=== PATIENT | male | born 1935 | race Caucasian/White ===

== ENCOUNTER → 2016-09-19 | Outpatient (CLI) | payer MEDICARE, BC ==
--- NOTE | 2016-09-19 13:00 | US ---
EXAMINATION TYPE: US groin extremity LT DATE OF EXAM: 09/19/2016 12:13 PM COMPARISON: CT abdomen and pelvis April 11, 2016. CLINICAL HISTORY: K40.90. Patient states pain and a "worm like" structure that instantaneously will p op out and brings him to his knees. Left groin/upper thigh area. Poor historian. TECHNOLOGIST IMPRESSION: Area of pain and area of palpable area scanned. Prominent echogenic lesion seen= 2.5 x 2.1 x 0.6 cm, nonvascular. Contralateral image taken. No sign of hernia seen. Technologist rodrigez an oval hyperechoic area, probable prominent but fatty replaced benign lymph node believed to correlate with CT axial image 105. No suspicious bowel or fat-containing inguinal hernia is seen. IMPRESSION: As above.
== END | disposition home or self-care (01) ==
LOC: RADUSWWP 11:37
PROVIDERS: ATTEND Family Medicine
DX: K40.90 Unilateral inguinal hernia, without obstruction or gangrene, not specified as recurrent (principal)

== ENCOUNTER 2016-09-23 06:37 | Inpatient (IN) | payer MEDICARE, BC ==
[2016-09-23] MEDS ORDERED: SODIUM CHLORIDE 0.9% 1,000 ML IV STA (07:18)
[2016-09-23] MEDS ORDERED: methylPREDNISolone SOD SUCCI 125 MG/2 ML VIAL IV STA (07:21)
--- NOTE | 2016-09-23 07:21 | ED ---
SOB HPI - General Chief Complaint: Shortness of Breath Stated Complaint: MARIELA Time Seen by Provider: 09/23/16 07:00 Source: patient, family, EMS, RN notes reviewed Mode of arrival: EMS Limitations: no limitations - History of Present Illness Initial Comments: This is a 81-year-old male who just completed antibiotics yesterday after being treated for double pneumonia was brought in by EMS today because of shortness of breath and dyspnea on exertion. He was profoundly short of breath with exertion. Patient states that he actually collapsed and couldn't breathe did using her or to [place] his family. He did receive an updraft treatment in route does show somewhat better is found to have low saturations on the pulse oximeter. 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 He denied any overt chest pain fevers chills or sweats at this time. MD Complaint: shortness of breath, cough - Related Data Home Medications Medication Instructions Recorded Confirmed Allopurinol [Zyloprim] 300 mg PO DAILY 09/23/16 09/23/16 Atorvastatin [Lipitor] 80 mg PO DAILY 09/23/16 09/23/16 Clopidogrel Bisulfate [Plavix] 75 mg PO DAILY 09/23/16 09/23/16 Meclizine [Antivert] 12.5 mg PO TID PRN 09/23/16 09/23/16 Omeprazole [PriLOSEC] 20 mg PO AC-BRKFST 09/23/16 09/23/16 Tamsulosin [Flomax] 0.4 mg PO DAILY 09/23/16 09/23/16 amLODIPine BESYLATE/BENAZEPRIL 1 cap PO DAILY 09/23/16 09/23/16 [amLODIPine BESYLATE/BENAZEPRIL 10-20 mg] methylPREDNISolone [Medrol Dose 4 mg PO DIRECTED 09/23/16 09/23/16 Pack] Allergies Allergy/AdvReac Type Severity Reaction Status Date / Time Penicillins Allergy Rash/Hives Verified 09/23/16 09:14 Review of Systems ROS Statement: Those systems with pertinent positive or pertinent negative responses have been documented in the HPI. ROS Other: All systems not noted in ROS Statement are negative. Past Medical History Past Medical History: COPD, Hyperlipidemia, Hypertension History of Any Multi-Drug Resistant Organisms: None Reported Past Surgical History: Heart Catheterization With Stent Past Psychological History: No Psychological Hx Reported Smoking Status: Never smoker Past Alcohol Use History: Occasional Past Drug Use History: None Reported General Exam - General Exam Comments Initial Comments: Is a well-developed well-nourished awake alert oriented 3 male he is hard of hearing Limitations: no limitations General appearance: alert, anxious Head exam: Present: atraumatic, normocephalic, normal inspection Eye exam: Present: normal appearance, PERRL, EOMI. Absent: scleral icterus, conjunctival injection, periorbital swelling ENT exam: Present: normal exam, mucous membranes moist Neck exam: Present: normal inspection. Absent: tenderness, meningismus, lymphadenopathy Respiratory exam: Present: rhonchi (Left basilar rhonchi), decreased breath sounds. Absent: respiratory distress, wheezes, rales, stridor Cardiovascular Exam: Present: regular rate, normal rhythm, normal heart sounds. Absent: systolic murmur, diastolic murmur, rubs, gallop, clicks GI/Abdominal exam: Present: soft, normal bowel sounds. Absent: distended, tenderness, guarding, rebound, rigid Extremities exam: Present: normal inspection, full ROM, normal capillary refill. Absent: tenderness, pedal edema, joint swelling, calf tenderness Back exam: Present: normal inspection Neurological exam: Present: alert, oriented X3, CN II-XII intact Psychiatric exam: Present: normal affect, normal mood Skin exam: Present: warm, dry, intact, normal color. Absent: rash Course Vital Signs 09/23/16 09/23/16 09/23/16 06:41 09:00 10:25 Temperature 96.9 F L 96.3 F L Pulse Rate 60 87 93 Respiratory 24 18 18 Rate Blood Pressure 125/91 128/72 139/85 O2 Sat by Pulse 90 L 94 L 94 L Oximetry - Reevaluation(s) Reevaluation #1: 09/23/16 11:05 Patient is chest pain-free he has not had any chest pain is feeling much improved I did a long discussion with family initial troponin was elevated was a hemolyzed specimen repeat has been ordered as well as repeat EKG Reevaluation #2: 09/23/16 11:06 Repeat EKG shows no change from the original one. Repeat EKG showed a sinus rhythm of 87 FL interval 172 QRS duration 86 QT/QTC of 392/[address]-T wave configuration Reevaluation #3: 09/23/16 11:07 I did discuss case with Dr. Jimenes from cardiology and with Dr. Allan. Dr. Allan's covering for Dr. Lopez. Medical Decision Making - Medical Decision Making I did discuss findings with the patient family members patient does have evidence of a non-ST elevation myocardial infarction the enzymes are mildly elevated at did discuss case with Dr. Jimenes patient be admitted he'll be placed on heparin and nitroglycerin. - Lab Data Result diagrams: 09/23/16 06:50 09/23/16 06:50 Lab Results 09/23/16 09/23/16 09/23/16 Range/Units 06:50 06:50 06:50 WBC 7.7 (3.8-10.6) k/uL RBC 4.50 (4.30-5.90) m/uL Hgb 14.3 (13.0-17.5) gm/dL Hct 42.4 (39.0-53.0) % MCV 94.1 (80.0-100.0) fL MCH 31.8 (25.0-35.0) pg MCHC 33.8 (31.0-37.0) g/dL RDW 14.7 (11.5-15.5) % Plt Count 164 (150-450) k/uL Neutrophils % 68 % Lymphocytes % 25 % Monocytes % 4 % Eosinophils % 1 % Basophils % 0 % Neutrophils # 5.3 (1.3-7.7) k/uL Lymphocytes # 1.9 (1.0-4.8) k/uL Monocytes # 0.3 (0-1.0) k/uL Eosinophils # 0.1 (0-0.7) k/uL Basophils # 0.0 (0-0.2) k/uL PT (9.0-12.0) sec INR (<1.1) APTT (22.0-30.0) sec Sodium 145 (137-145) mmol/L Potassium 3.8 (3.5-5.1) mmol/L Chloride 108 H (98-107) mmol/L Carbon Dioxide 22 (22-30) mmol/L Anion Gap 15 mmol/L BUN 12 (9-20) mg/dL Creatinine 0.63 L (0.66-1.25) mg/dL Est GFR (MDRD) Af Amer >60 (>60 ml/min/1.73 sqM) Est GFR (MDRD) Non-Af >60 (>60 ml/min/1.73 sqM) Glucose 177 H (74-99) mg/dL Calcium 8.7 (8.4-10.2) mg/dL Magnesium 1.5 L (1.6-2.3) mg/dL Total Bilirubin 0.9 (0.2-1.3) mg/dL AST 63 H (17-59) U/L ALT 102 H (21-72) U/L Alkaline Phosphatase 149 H (38-126) U/L Total Creatine Kinase 88 (55-170) U/L CK-MB (CK-2) 1.9 (0.0-2.4) ng/mL CK-MB (CK-2) Rel Index 2.2 Troponin I 0.173 H* (0.000-0.034) ng/mL NT-Pro-B Natriuret Pep pg/mL Total Protein 7.4 (6.3-8.2) g/dL Albumin 4.2 (3.5-5.0) g/dL 09/23/16 09/23/16 09/23/16 Range/Units 06:50 06:50 09:07 WBC (3.8-10.6) k/uL RBC (4.30-5.90) m/uL Hgb (13.0-17.5) gm/dL Hct (39.0-53.0) % MCV (80.0-100.0) fL MCH (25.0-35.0) pg MCHC (31.0-37.0) g/dL RDW (11.5-15.5) % Plt Count (150-450) k/uL Neutrophils % % Lymphocytes % % Monocytes % % Eosinophils % % Basophils % % Neutrophils # (1.3-7.7) k/uL Lymphocytes # (1.0-4.8) k/uL Monocytes # (0-1.0) k/uL Eosinophils # (0-0.7) k/uL Basophils # (0-0.2) k/uL PT 11.5 (9.0-12.0) sec INR 1.1 (<1.1) APTT 19.5 L (22.0-30.0) sec Sodium (137-145) mmol/L Potassium (3.5-5.1) mmol/L Chloride (98-107) mmol/L Carbon Dioxide (22-30) mmol/L Anion Gap mmol/L BUN (9-20) mg/dL Creatinine (0.66-1.25) mg/dL Est GFR (MDRD) Af Amer (>60 ml/min/1.73 sqM) Est GFR (MDRD) Non-Af (>60 ml/min/1.73 sqM) Glucose (74-99) mg/dL Calcium (8.4-10.2) mg/dL Magnesium (1.6-2.3) mg/dL Total Bilirubin (0.2-1.3) mg/dL AST (17-59) U/L ALT (21-72) U/L Alkaline Phosphatase (38-126) U/L Total Creatine Kinase (55-170) U/L CK-MB (CK-2) (0.0-2.4) ng/mL CK-MB (CK-2) Rel Index Troponin I 0.713 H* (0.000-0.034) ng/mL NT-Pro-B Natriuret Pep 214 pg/mL Total Protein (6.3-8.2) g/dL Albumin (3.5-5.0) g/dL - EKG Data -: EKG Interpreted by Mn EKG shows normal: sinus rhythm (Initial EKG showed a sinus rhythm of 91 a FL interval 170 QRS duration 88 daily since QTC of 364/[address]-T wave configuration. No change when compared to an EKG dated 12/04/11) - Radiology Data Radiology results: report reviewed (I did review the x-ray report no definite acute findings.), image reviewed Critical Care Time Critical Care Time: Yes Critical Care Time: 37 minutes of critical care time which includes the initial encounter with history physical lab and x-rays evaluation of same review of old charting. Multiple re-evaluations the patient. Discussion with the admitting physician and cardiology service. Admission orders and documentation of the above. Disposition Clinical Impression: Non-ST elevation myocardial infarction (NSTEMI), Exertional dyspnea Disposition: ADMITTED IP TO THIS [facility] Condition: Stable
[2016-09-23 07:34] LABS: Basophils % (A) 0 %; CHCM 35.3; Eosinophils # (A) 0.1 k/uL (0-0.7); Eosinophils % (A) 1 %; HCT 42.4 % (39.0-53.0); HGB 14.3 gm/dL (13.0-17.5); Luc # (Auto) 0.12; Luc % (Auto) 2; Lymphocytes # (A) 1.9 k/uL (1.0-4.8); Lymphocytes % (A) 25 %; MCH 31.8 pg (25.0-35.0); MCHC 33.8 g/dL (31.0-37.0); MCV 94.1 fL (80.0-100.0); Mean Platelet Volume 6.7; Monocytes # (A) 0.3 k/uL (0-1.0); Monocytes % (A) 4 %; Neutrophils # (A) 5.3 k/uL (1.3-7.7); Neutrophils % (A) 68 %; RDW 14.7 % (11.5-15.5); WBC 7.7 k/uL (3.8-10.6); WBC (Perox) 7.77
[2016-09-23 07:48] LABS: ALT 102 U/L (21-72); AST 63 U/L (17-59); Alkaline Phosphatase 149 U/L (38-126); Anion Gap 15 mmol/L; Blood Urea Nitrogen 12 mg/dL (9-20); Calcium 8.7 mg/dL (8.4-10.2); Carbon Dioxide 22 mmol/L (22-30); Chloride 108 mmol/L (98-107); Glucose 177 mg/dL (74-99); Magnesium 1.5 mg/dL (1.6-2.3); Non-African American GFR(MDRD) >60 (>60 ml/min/1.73 sqM); Potassium 3.8 mmol/L (3.5-5.1); Sodium 145 mmol/L (137-145); Total Bilirubin 0.9 mg/dL (0.2-1.3); Total Protein 7.4 g/dL (6.3-8.2)
[2016-09-23 07:49] LABS: INR 1.1 (<1.1); Prothrombin Time 11.5 sec (9.0-12.0)
[2016-09-23 07:53] LABS: Partial Thromboplastin Time 19.5 sec (22.0-30.0)
--- NOTE | 2016-09-23 07:58 | XR ---
EXAMINATION TYPE: XR chest 2V DATE OF EXAM: 09/23/2016 7:48 AM COMPARISON: Prior chest x-ray 18 April 2015 HISTORY: Difficulty breathing TECHNIQUE: Frontal and lateral views of the chest are obtained. FINDINGS: There is no focal air space opacity, pleural effusion, or pneumothorax seen. The cardiac silhouette size is within normal limits. There are overlying cardiac leads and the patient is rotated . The aorta is dense. Prominent lung volume may be indicative of COPD. The osseous structures are in tact. IMPRESSION: No acute cardiopulmonary process.
[2016-09-23] MEDS ORDERED: MAGNESIUM SULFATE-D5W PMX 1 GM in DEXTROSE/WATER 1 100ML.BAG IVPB ONE (08:11)
[2016-09-23 08:12] LABS: Creatine Kinase MB 1.9 ng/mL (0.0-2.4)
[2016-09-23 08:15] LABS: Troponin I 0.173 ng/mL (0.000-0.034)
[2016-09-23] MEDS ORDERED: HEPARIN SODIUM,PORCINE 5,000 UNIT/ML 1 ML VIAL IV ONE (10:17)
[2016-09-23] MEDS ORDERED: NITROGLYCERIN OINT 1 INCH/GM PACKET TOPICAL STA (10:17)
[2016-09-23] MEDS ORDERED: HEPARIN SODIUM,PORCINE/D5W PMX 25,000 UNIT in DEXTROSE/WATER 1 500ML.BAG IV SCH (10:30)
[2016-09-23] MEDS ORDERED: NITROGLYCERIN SL TABS 0.4 MG TAB SUBLINGUAL PRN (11:10)
[2016-09-23] MEDS: SODIUM CHLORIDE 0.9% 1,000 ML IV SCH (13:00)
[2016-09-23] MEDS: METOPROLOL TARTRATE 25 MG TAB PO SCH ×2 (13:58→21:40)
--- NOTE | 2016-09-23 14:18 | CONS ---
DATE OF CONSULTATION: Mr. Shah is an 81-year-old male who presented to the emergency room with an episode of dyspnea. He has a known history of coronary artery disease, has been followed by Dr. Alejandra Poole, underwent percutaneous revascularization of his LAD in 2011 using a bare-metal stent. He according to him, has been doing well. Today in the morning he had a sudden onset of dyspnea without any associated chest discomfort. He came into the emergency room and his troponin was minimally elevated. Patient denies any chest tightness or chest pressure. He is usually active physically. Denies any dizziness or palpitation. No PND. No orthopnea. His coronary risk factors are remarkable for hypertension, hyperlipidemia. He is nonsmoker, nondiabetic. His medications at home include Flomax, Prilosec, Antivert, Plavix 75 mg daily, Lipitor 80 mg daily, amlodipine, benazepril 10-1 gm daily and allopurinol. Patient had a recent pneumonia. According to him, and has been treated a week ago. REVIEW OF SYSTEMS: RESPIRATORY SYSTEM: He had a cough, dyspnea on exertion. GI SYSTEM: No recent GI bleeding, no peptic disease. SYSTEM: No dysuria or hematuria. NERVOUS SYSTEM: No stroke or seizure. PHYSICAL EXAMINATION: An 81-year-old male; alert, anxious and teary at times, blood pressure running in the 120s to 160s systolic with a heart rate in the 90s. HEAD: Normocephalic. EYES: Sclerae nonicteric. NECK: Good upstroke. No bruit. No jugular venous distention. LUNGS: Clear to auscultation. HEART: Regular rate and rhythm. S1, S2, no S3, with systolic murmur heard at the base, ejection type, no diastolic murmur. No rub. ABDOMEN: Soft, nontender, positive bowel sounds. No organomegaly. EXTREMITIES: Mild chronic stasis with trace to 1+ edema. LAB DATA: His chest x-ray revealed no acute infiltrate. EKG revealed sinus mechanism, normal axis and intervals with nonspecific ST-T wave changes. Lab data revealed a BNP of 214, troponin of 0.173 and 0.713, AST 63, ALT of 102. BUN and creatinine 12 and 0.6. Potassium 3.8. Hemoglobin of 14.3. IMPRESSION: 1. Acute episode of dyspnea with minimal elevation of troponin, but no symptoms of chest discomfort. The possibility include non-ST segment elevation myocardial infarction, although it is possible a pulmonary embolism cannot be totally excluded. 2. History of coronary artery disease. 3. History of hypertension. 4. Hyperlipidemia. 5. Recent pneumonia. RECOMMENDATION: I will obtain echocardiogram with Doppler, will continue on IV heparin. I will add to his regimen a beta jono. I will obtain a d-dimer, if it is elevated, will obtain a CT angiogram to rule out pulmonary embolism. If he has further change in his troponin, he may require repeat coronary angiography that will be performed by Dr. 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 Thank you for this consult. Will follow with you.
[2016-09-23] MEDS ORDERED: RX INFO: IV CONTRAST WAS GIVEN 1 EACH MISC MISCELLANE PRN (14:58)
[2016-09-23 15:01] LABS: Creatine Kinase MB 4.5 ng/mL (0.0-2.4)
[2016-09-23 15:02] LABS: Troponin I 0.789 ng/mL (0.000-0.034)
--- NOTE | 2016-09-23 15:48 | CT ---
EXAMINATION TYPE: CT chest angio for PE DATE OF EXAM: 09/23/2016 3:35 PM COMPARISON: 05/23/2015 HISTORY: 81-year-old male with shortness of breath, elevated D dimer TECHNIQUE: Contiguous axial scanning of the chest performed with IV Contrast, patient injected with 1 00 mL of Omnipaque 350. Coronal/sagittal MIP reconstructions performed. CT DLP: 596.2 mGycm Automated exposure control for dose reduction was used. FINDINGS: Heart is normal size without pericardial effusion. However, there is slight flattening of the interve ntricular septum and some reflux of contrast into the hepatic veins. Ectasia of ascending aorta at 3.7 cm with a bovine configuration to the aortic arch. 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 Moderate bilateral gynecomastia. Satisfactory opacification of the pulmonary arterial system with borderline to mild enlargement of th e main pulmonary arteries and 2.6 and 2.5 cm, each, suggesting underlying pulmonary hypertension. There are bilateral pulmonary emboli involving the distal main pulmonary arteries on both sides. Ther e is extensive clot burden within the interlobar pulmonary artery on the right with embolic material extending into all lobar and segmental branches on the right. There is embolic material extending int o the proximal left upper lobe pulmonary artery, in the descending left pulmonary artery, and promine nt clot burden within segmental left lower lobe pulmonary artery branches.. Mild diffuse bronchial wall thickening similar prior. Some patchy pulmonary opacities in the left low er lobe could reflect early pulmonary infarct, atelectasis, or small infiltrate. No pleural effusion. Visualized upper abdomen shows a 1.6 cm cyst in the mid left kidney and a hilar splenule. Bones: No osseous destructive process. IMPRESSION: 1. EXAM POSITIVE FOR BILATERAL PULMONARY EMBOLI WITH MODERATE TO SEVERE BURDEN AND FINDINGS SUSPICIOU S FOR EARLY RIGHT HEART STRAIN. 2. CHRONIC INTERSTITIAL CHANGES IN THE LUNGS AND POSSIBLE CHRONIC BRONCHITIS/ASTHMA. SOME PATCHY BASI LAR LEFT LOWER LOBE OPACITY COULD REPRESENT EARLY PULMONARY INFARCT OR OTHER INFILTRATE. Findings called to nurse Hyatt on 6SEL at approximately 3:45 PM.
[2016-09-23] MEDS ORDERED: HEPARIN SODIUM,PORCINE 5,000 UNIT/ML 1 ML VIAL IV PRN (16:00)
[2016-09-23] MEDS: HEPARIN SODIUM,PORCINE/D5W PMX 25,000 UNIT in DEXTROSE/WATER 1 500ML.BAG IV SCH (17:02)
--- NOTE | 2016-09-23 18:48 | US ---
EXAMINATION TYPE: US venous doppler duplex LE BI DATE OF EXAM: 09/23/2016 6:21 PM COMPARISON: NONE CLINICAL HISTORY: dvt. Bilateral pulmonary embolism SIDE PERFORMED: Bilateral VESSELS IMAGED: External Iliac Vein (EIV) Common Femoral Vein Deep Femoral Vein Greater Saphenous Vein * Femoral Vein Popliteal Vein Small Saphenous Vein * Proximal Calf Veins (* superficial vessels) TECHNOLOGIST IMPRESSION: Right Leg: Negative for DVT Left Leg: Positive for non-occluding DVT from the upper femoral vein to the proximal calf vein Preliminary results given to PRANEETH Hyatt at time of exam IMPRESSION: No evidence of deep venous thrombosis in the right leg. 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
[2016-09-23 20:48] LABS: Glucose,Whole Blood 148 mg/dL (75-99)
[2016-09-23 21:35] LABS: Creatine Kinase MB 6.3 ng/mL (0.0-2.4); Troponin I 0.978 ng/mL (0.000-0.034)
--- NOTE | 2016-09-23 21:43 | HP ---
DATE OF ADMISSION: 09/23/2016 I am covering for Dr. Lopez CHIEF COMPLAINT: Chest pain. HISTORY OF PRESENT ILLNESS: This 81-year-old gentleman with a past medical history of multiple medical problems including coronary artery disease, COPD, myocardial infarction, history of pneumonia, seizure disorder, history of recent bilateral pneumonia, history of coronary artery disease and stent, being followed by Dr. Lopez in the outpatient setting who has recently completed antibiotics for pneumonia. The patient had sudden onset of shortness of breath and dyspnea on exertion. The patient became extremely short of breath, unable to take a deep breath. The patient also had some chest discomfort started in the epigastrium and radiated upwards according to him. The patient came to [facility] and admitted for further evaluation and treatment. The troponins were found to be elevated. Cardiology consultations has been sought. Troponins found to be 0.173, . The EKG shows nonspecific ST-T changes. The d-dimer was found to be elevated to 4.57 and the patient also had a chest CTA which showed extensive bilateral pulmonary embolism with moderate suspicious area of early right heart strain also chronic infectious changes was also noted. The patient was started on IV heparin. The patient is being closely monitored. There is no history of fever, rigors or chills. No history of headache, loss of consciousness or seizures. PAST MEDICAL HISTORY: History of coronary artery disease, COPD, myocardial infarction, pneumonia, renal disorder, seizure disorder. CAD/stent. MEDICATIONS: 1. Flomax 0.4 daily. 2. Medrol Dosepak. 3. Prilosec 20 mg a.c. breakfast. 4. Antivert 12.5 mg t.i.d. 5. Plavix 75 mg milligrams p.o. daily. 6. Lipitor 80 mg p.o. daily. 7. Amlodipine. 8. Benazepril. 10. Zyloprim 300 mg daily. ALLERGIES: PENICILLIN. FAMILY HISTORY: No history of heart disease or strokes in the family. Mother had mental health issues. SOCIAL HISTORY: No history of smoking. No history of alcohol intake. REVIEW OF SYSTEMS: ENT: No diminished hearing. No diminished vision. CARDIOVASCULAR: As mentioned earlier. RESPIRATORY SYSTEM: As mentioned earlier. GI: No nausea or vomiting. : No dysuria. CENTRAL NERVOUS SYSTEM: No numbness or weakness. Allergy/Immunology: No asthma or hayfever. MUSCULOSKELETAL: As mentioned earlier. HEMATOLOGY/ONCOLOGY: No history of anemia. ENDOCRINE: No history of diabetes mellitus , hypothyroidism. CONSTITUTIONAL: As mentioned earlier. DERMATOLOGY: Negative. RHEUMATOLOGY: Negative. PSYCHIATRY: As mentioned earlier. PHYSICAL EXAMINATION: The patient is alert and oriented x3. Pulse is 90, blood pressure 120/93, respiratory rate 22. Temperature 96.8. Pulse ox 94% on 3 liters. Patient is short of breath at rest. HEENT: Conjunctivae normal. Oral mucosa moist. NECK: No jugular venous distention. No carotid bruit. No lymph node enlargement. CARDIOVASCULAR: S1, S2 muffled. No S3, no S4. RESPIRATORY: Breath sounds diminished at the bases. A few scattered rhonchi and crackles. Expiratory wheezing also present. ABDOMEN: Soft, obese, nontender. No mass palpable. Legs: Minimal bilateral leg edema. Nervous system: Higher functions as mentioned earlier. Moves all 4 limbs. No focal deficits. LYMPHATICS: No lymph nodes palpable in the neck, axillae or groin. SKIN: No ulcer, rash or bleeding. LABS: CBC within normal limits, magnesium 1.5, AST 63, ALT is 102. ASSESSMENT: 1. Shortness of breath with acute bilateral pulmonary embolism. 2. Hypomagnesemia. 3. Increased AST, ALT. 4. Troponin 0.789 possibly secondary to pulmonary embolism. 5. Obesity with body mass index of 35.9. 6. History of recent pneumonia. 7. History of coronary artery disease. 8. History of chronic obstructive pulmonary disease. 9. History of myocardial infarction. 10. History of kidney disease currently creatinine normal. 11. History of seizure disorder. 12. History of inguinal hernia. 13. History of coronary artery disease and stent. 14. History of degenerative joint disease. 15. FULL CODE. RECOMMENDATIONS AND DISCUSSION: In this 81-year-old gentleman who presented with multiple complex medical issues, we will monitor the patient closely. Continue the current medications, continue symptomatic treatment. We will initiate IV heparin. Otherwise, I would also recommend ultrasound of the legs. The patient might be a candidate for oral anticoagulant agents once the patient stabilized on heparin and a 2-D echo with Doppler was also done. Utility Mechanic Supervisor was consulted. Prognosis guarded because of multiple complex medical issues. Further recommendations to follow. We will also obtain a pulmonary consultation also. Prognosis guarded. Discussed with the patient understands and agrees. Dr. Lopez will follow. [facility]
[2016-09-24] MEDS: HEPARIN SODIUM,PORCINE/D5W PMX 25,000 UNIT in DEXTROSE/WATER 1 500ML.BAG IV SCH ×2 (06:44→16:31)
[2016-09-24] MEDS: PANTOPRAZOLE 40 MG TABLET PO SCH (06:44)
[2016-09-24 08:06] LABS: Basophils % (A) 0 %; CH 33.4; CHCM 35.2; Eosinophils % (A) 0 %; HCT 38.1 % (39.0-53.0); HDW 3.12; Luc # (Auto) 0.09; Luc % (Auto) 1; Lymphocytes # (A) 1.9 k/uL (1.0-4.8); Lymphocytes % (A) 18 %; MCH 32.7 pg (25.0-35.0); MCHC 34.2 g/dL (31.0-37.0); MCV 95.6 fL (80.0-100.0); Mean Platelet Volume 8.1; Monocytes # (A) 0.4 k/uL (0-1.0); Monocytes % (A) 4 %; Neutrophils # (A) 7.6 k/uL (1.3-7.7); Neutrophils % (A) 76 %; RBC 3.99 m/uL (4.30-5.90); RDW 14.8 % (11.5-15.5); WBC (Perox) 9.49
[2016-09-24 08:12] LABS: ALT 72 U/L (21-72); AST 57 U/L (17-59); Alkaline Phosphatase 119 U/L (38-126); Anion Gap 15 mmol/L; Blood Urea Nitrogen 15 mg/dL (9-20); Calcium 8.8 mg/dL (8.4-10.2); Carbon Dioxide 19 mmol/L (22-30); Chloride 111 mmol/L (98-107); Cholesterol 72 mg/dL (<200); Glucose 149 mg/dL (74-99); HDL Cholesterol 55 mg/dL (40-60); Magnesium 1.8 mg/dL (1.6-2.3); Non-African American GFR(MDRD) >60 (>60 ml/min/1.73 sqM); Potassium 3.8 mmol/L (3.5-5.1); Sodium 145 mmol/L (137-145); Total Bilirubin 0.7 mg/dL (0.2-1.3); Total Protein 6.3 g/dL (6.3-8.2); Triglycerides 63 mg/dL (<150)
[2016-09-24] MEDS ORDERED: ASPIRIN 325 MG TAB PO SCH (09:00)
[2016-09-24] MEDS ORDERED: CLOPIDOGREL 75 MG TAB PO SCH (09:00)
[2016-09-24] MEDS: amLODIPine 10 MG TAB PO SCH (09:49)
[2016-09-24] MEDS: ATORVASTATIN 80 MG TAB PO SCH (09:49)
[2016-09-24] MEDS: ASPIRIN 81 MG CHEW PO SCH (09:49)
[2016-09-24] MEDS: ALLOPURINOL 300 MG TAB PO SCH (09:49)
[2016-09-24] MEDS: LISINOPRIL 20 MG TAB PO SCH (09:50)
[2016-09-24] MEDS: TAMSULOSIN 0.4 MG CAP.ER.24H PO SCH (09:50)
[2016-09-24] MEDS: METOPROLOL TARTRATE 25 MG TAB PO SCH ×2 (09:50→21:45)
--- NOTE | 2016-09-24 10:34 | ECHOF ---
Referral Reason:cad MEASUREMENTS -------- HEIGHT: 182.9 cm WEIGHT: 120.2 kg BP: 169/102 RVIDd: 4.2 cm (< 3.3) IVSd: 1.4 cm (0.6 - 1.1) LVIDd: 4.1 cm (3.9 - 5.3) LVPWd: 1.5 cm (0.6 - 1.1) IVSs: 1.6 cm LVIDs: 3.6 cm LVPWs: 1.7 cm LAESV Index (A-L): 24.92 ml/m Ao Diam: 4.0 cm (2.0 - 3.7) AV Cusp: 2.0 cm (1.5 - 2.6) LA Diam: 3.5 cm (2.7 - 3.8) MV EXCURSION: 11.106 mm (> 18.000) MV EF SLOPE: 47 mm/s (70 - 150) EPSS: 1.4 cm MV E Wayne: 0.50 m/s MV DecT: 206 ms MV A Wayne: 0.78 m/s MV E/A Ratio: 0.64 RAP: 5.00 mmHg RVSP: 21.61 mmHg FINDINGS -------- Sinus rhythm. This was a technically adequate study. There is moderate concentric left ventricular hypertrophy. Overall left ventricular systolic function is normal with, an EF between 55 - 60 %. The right ventricle is moderate to severely enlarged. Normal LA size by volume 22+/-6 ml/m2. The right atrial size is normal. There is mild aortic valve sclerosis. There is no evidence of aortic regurgitation. Mild mitral annular calcification present. Mild mitral regurgitation is present. Mild tricuspid regurgitation present. There is no evidence of pulmonary hypertension. The right ventricular systolic pressure, as measured by Doppler, is 21.61mmHg. There is no pulmonic regurgitation present. The aortic root size is normal. There is no pericardial effusion. CONCLUSIONS -------- 1. There is moderate concentric left ventricular hypertrophy. 2. Overall left ventricular systolic function is normal with, an EF between 55 - 60 %. 3. The right ventricle is moderate to severely enlarged. 4. Normal LA size by volume 22+/-6 ml/m2. 5. There is mild aortic valve sclerosis. 6. Mild mitral annular calcification present. 7. Mild tricuspid regurgitation present. 8. There is no evidence of pulmonary hypertension. 9. The right ventricular systolic pressure, as measured by Doppler, is 21.61mmHg. ADULT AND PEDIATRIC NEUROLOGIST: Melanie Michele RDCS
--- NOTE | 2016-09-24 11:27 | P.PN ---
Subjective Principal diagnosis: Bilateral pulmonary embolism, left lower extremity DVT Patient is an 81-year-old white male admitted with medical history significant for coronary artery disease, COPD, myocardial infarction with bare metal stent placement to his LAD in 2011 taken off anticoagulation approximately 6 months ago, admitted to the hospital with complaints of severe shortness of breath and found to have evidence of bilateral pulmonary emboli and nonoccluding DVT of left leg from upper femoral vein to the proximal calf vein. Echocardiogram shows moderate to severely enlarged right ventricle with overall preserved left ventricular systolic function with an EF between 55-60%. Patient continues on IV heparin. Cardiology and pulmonology is following patient. Upon examination , patient complains of dyspnea at rest and exacerbated with exertion. Patient reports chronic numbness to bilateral lower extremities since his knee operation. Denies chills, fevers, nausea, vomiting, chest pain, abdominal pain , urinary frequency, urgency, dysuria, hematuria. Denies constipation or diarrhea. Patient is tolerating his diet. Objective - Vital Signs Vital signs: Vital Signs Temp 96.5 F L 09/24/16 07:35 Pulse 68 09/24/16 09:35 Resp 16 09/24/16 08:44 BP 144/88 09/24/16 09:35 Pulse Ox 96 09/24/16 07:35 Intake & Output 09/23/16 09/24/16 09/24/16 18:59 06:59 18:59 Intake Total 496 500.000 197.933 Output Total 600 Balance 496 -100.000 197.933 Weight 121.5 kg Intake: IV 260 Heparin Sodium,Porcine/ 80 D5w Pmx 25,000 unit In Dextrose/Water 1 500ml. bag @ 8.32 UNITS/KG/HR 20 mls/hr IV .Q24H [facility] Rx#: [id number] Magnesium Sulfate-D5w Pmx 100 1 gm In Dextrose/Water 1 100ml.bag @ 100 mls/hr IVPB ONCE ONE Rx#: [id number] Sodium Chloride 0.9% 1, 80 000 ml @ 20 mls/hr IV . Q24H [facility] Rx#:[id number] Intake, IV Titration 500.000 79.933 Amount Heparin Sodium,Porcine/ 500.000 79.933 D5w Pmx 25,000 unit In Dextrose/Water 1 500ml. bag @ 18 UNITS/KG/HR 43. 27 mls/hr IV .[id number] [facility] Rx#:[id number] Oral 236 118 Output: Urine 600 Other: Voiding Method Toilet Toilet Toilet - Exam GENERAL: Pt awake and alert, well-appearing, well-nourished, and in no acute distress. HEAD: Atraumatic, normocephalic. EYES: Pupils equal, round and round, sclera anicteric, conjunctiva are normal. ENT: Moist mucous membranes. NECK:Supple without lymphadenopathy or JVD. LUNGS: Breath sounds clear to auscultation bilaterally. No wheezes, rales, or rhonchi. HEART: Heart S1, S2, no S3 or S4. Regular rate and rhythm. No murmurs, rubs or gallops. ABDOMEN: Soft, nontender, nondistended, normoactive bowel sounds. No guarding, no rebound. No masses or organomegaly appreciated. EXTREMITIES: 2+ peripheral pulses. No edema. No calf tenderness. NEUROLOGICAL: Pt oriented x 3. No focal deficits. Decreased sensation to bilateral lower extremities. PSYCH: Normal mood, normal affect. SKIN: Warm, dry, intact. - Labs CBC & Chem 7: 09/24/16 06:20 09/24/16 06:20 Labs: Abnormal Lab Results - Last 24 Hours (Table) 09/23/16 09/23/16 09/23/16 Range/Units 14:01 14:01 16:36 RBC (4.30-5.90) m/uL Hct (39.0-53.0) % APTT 34.4 H (22.0-30.0) sec D-Dimer 4.57 H (<0.60) mg/L FEU Chloride (98-107) mmol/L Carbon Dioxide (22-30) mmol/L Creatinine (0.66-1.25) mg/dL Glucose (74-99) mg/dL POC Glucose (mg/dL) (75-99) mg/dL Total Creatine Kinase (55-170) U/L CK-MB (CK-2) 4.5 H* (0.0-2.4) ng/mL Troponin I 0.789 H* (0.000-0.034) ng/mL 09/23/16 09/23/16 09/23/16 Range/Units 20:25 20:29 22:22 RBC (4.30-5.90) m/uL Hct (39.0-53.0) % APTT 177.8 H* (22.0-30.0) sec D-Dimer (<0.60) mg/L FEU Chloride (98-107) mmol/L Carbon Dioxide (22-30) mmol/L Creatinine (0.66-1.25) mg/dL Glucose (74-99) mg/dL POC Glucose (mg/dL) 148 H (75-99) mg/dL Total Creatine Kinase 185 H (55-170) U/L CK-MB (CK-2) 6.3 H* (0.0-2.4) ng/mL Troponin I 0.978 H* (0.000-0.034) ng/mL 09/24/16 09/24/16 09/24/16 Range/Units 06:20 06:20 06:20 RBC 3.99 L (4.30-5.90) m/uL Hct 38.1 L (39.0-53.0) % APTT 101.0 H* (22.0-30.0) sec D-Dimer (<0.60) mg/L FEU Chloride 111 H (98-107) mmol/L Carbon Dioxide 19 L (22-30) mmol/L Creatinine 0.63 L (0.66-1.25) mg/dL Glucose 149 H (74-99) mg/dL POC Glucose (mg/dL) (75-99) mg/dL Total Creatine Kinase (55-170) U/L CK-MB (CK-2) (0.0-2.4) ng/mL Troponin I (0.000-0.034) ng/mL Assessment and Plan Plan: Impression: 1. Shortness of breath secondary to acute bilateral pulmonary emboli. 2. Left leg nonoccluding DVT. 3. Coronary artery disease. 4. Elevated troponins suspect secondary to pulmonary embolism. 5. Chronic obstructive pulmonary disease. 6. History of myocardial infarction with bare-metal stent placement in 2011. 7. History recent pneumonia. 8. Obesity. BMI of 36.3. 9. BPH. 10. History of seizure disorder. 11. History of inguinal hernia. 12. History of degenerative joint disease. Plan: 1. Continue to monitor patient. Continue current medications. Continue symptomatic treatment. Continue GI and DVT prophylaxis. Continue to follow with cardiology and pulmonology service. Repeat CBC, BMP in a.m. The above impression and plan have been discussed and directed by Dr. Lopez. Michael PARKER acting as scribe for Dr. Lopez.
--- NOTE | 2016-09-24 12:44 | P.PN ---
Subjective Principal diagnosis: Pulmonary embolism This is a pleasant 81-year-old gentleman who presented to the hospital mainly with symptoms of dyspnea. He has a known history of coronary artery disease with prior PCI of the LAD in 2011. He follows regularly with Dr. Ashraf in the office patient also has history of hypertension, hyperlipidemia. On admission here patient's troponins were noted to be mildly elevated, d-dimer was obtained yesterday, which came back to be 4.7. Subsequent to that patient underwent a CT of the chest which confirmed pulmonary embolism. Venous duplex study was then performed which revealed positive DVT in the left upper from oral vein. Patient is currently on IV heparin, we're checking to see if he has coverage for one of the newer anticoagulants. If so, we will initiate that today, discontinue the heparin and Plavix. Blood pressure 146/90 with a heart rate in the 60s. Echocardiogram with Doppler study was performed which revealed an ejection fraction of 55-60%. Right ventricle moderate to severely enlarged. Overall the patient states she's feeling better today, breathing is stable. Objective - Vital Signs Vital signs: Vital Signs Temp 96.5 F L 09/24/16 07:35 Pulse 68 09/24/16 09:35 Resp 16 09/24/16 08:44 BP 144/88 09/24/16 09:35 Pulse Ox 96 09/24/16 07:35 Intake & Output 09/23/16 09/24/16 09/24/16 18:59 06:59 18:59 Intake Total 496 500.000 197.933 Output Total 600 Balance 496 -100.000 197.933 Weight 121.5 kg Intake: IV 260 Heparin Sodium,Porcine/ 80 D5w Pmx 25,000 unit In Dextrose/Water 1 500ml. bag @ 8.32 UNITS/KG/HR 20 mls/hr IV .Q24H [facility] Rx#: [id number] Magnesium Sulfate-D5w Pmx 100 1 gm In Dextrose/Water 1 100ml.bag @ 100 mls/hr IVPB ONCE ONE Rx#: [id number] Sodium Chloride 0.9% 1, 80 000 ml @ 20 mls/hr IV . Q24H [facility] Rx#:[id number] Intake, IV Titration 500.000 79.933 Amount Heparin Sodium,Porcine/ 500.000 79.933 D5w Pmx 25,000 unit In Dextrose/Water 1 500ml. bag @ 18 UNITS/KG/HR 43. 27 mls/hr IV .[id number] [facility] Rx#:[id number] Oral 236 118 Output: Urine 600 Other: Voiding Method Toilet Toilet Toilet - Exam PHYSICAL EXAMINATION: HEENT: Head is atraumatic, normocephalic. Pupils equal, round. Neck is supple. There is no elevated jugular venous pressure. HEART EXAMINATION: Heart S1, S2 normal. No murmur or gallop heard. CHEST EXAMINATION: Lungs are clear to auscultation and precussion. No chest wall tenderness is noted on palpation or with deep breathing. ABDOMEN: Soft, nontender. Bowel sounds are heard. No organomegaly noted. EXTREMITIES: 2+ peripheral pulses with no evidence of peripheral edema and no calf tenderness noted. NEUROLOGIC patient is awake, alert and oriented -3. . - Labs CBC & Chem 7: 09/24/16 06:20 09/24/16 06:20 Labs: Abnormal Lab Results - Last 24 Hours (Table) 09/23/16 09/23/16 09/23/16 Range/Units 14:01 14:01 16:36 RBC (4.30-5.90) m/uL Hct (39.0-53.0) % APTT 34.4 H (22.0-30.0) sec D-Dimer 4.57 H (<0.60) mg/L FEU Chloride (98-107) mmol/L Carbon Dioxide (22-30) mmol/L Creatinine (0.66-1.25) mg/dL Glucose (74-99) mg/dL POC Glucose (mg/dL) (75-99) mg/dL Total Creatine Kinase (55-170) U/L CK-MB (CK-2) 4.5 H* (0.0-2.4) ng/mL Troponin I 0.789 H* (0.000-0.034) ng/mL 09/23/16 09/23/16 09/23/16 Range/Units 20:25 20:29 22:22 RBC (4.30-5.90) m/uL Hct (39.0-53.0) % APTT 177.8 H* (22.0-30.0) sec D-Dimer (<0.60) mg/L FEU Chloride (98-107) mmol/L Carbon Dioxide (22-30) mmol/L Creatinine (0.66-1.25) mg/dL Glucose (74-99) mg/dL POC Glucose (mg/dL) 148 H (75-99) mg/dL Total Creatine Kinase 185 H (55-170) U/L CK-MB (CK-2) 6.3 H* (0.0-2.4) ng/mL Troponin I 0.978 H* (0.000-0.034) ng/mL 09/24/16 09/24/16 09/24/16 Range/Units 06:20 06:20 06:20 RBC 3.99 L (4.30-5.90) m/uL Hct 38.1 L (39.0-53.0) % APTT 101.0 H* (22.0-30.0) sec D-Dimer (<0.60) mg/L FEU Chloride 111 H (98-107) mmol/L Carbon Dioxide 19 L (22-30) mmol/L Creatinine 0.63 L (0.66-1.25) mg/dL Glucose 149 H (74-99) mg/dL POC Glucose (mg/dL) (75-99) mg/dL Total Creatine Kinase (55-170) U/L CK-MB (CK-2) (0.0-2.4) ng/mL Troponin I (0.000-0.034) ng/mL Assessment and Plan (1) Pulmonary embolism Status: Acute (2) CAD (coronary artery disease) Status: Acute (3) HTN (hypertension) Status: Acute (4) Hyperlipemia Status: Acute (5) DVT (deep venous thrombosis) Status: Acute Plan: Cardiology's perspective, we will continue the IV heparin check regarding coverage for one of the newer anticoagulants, patient is covered, we will initiate that today, and discontinue the heparin 6. Plan for possible discharge home in 24-48 hours if stable. DNP note has been reviewed, I agree with a documented findings and plan of care. Patient was seen and examined.
--- NOTE | 2016-09-24 14:43 | P.CNPUL ---
History of Present Illness Consult date: 09/24/16 Requesting physician: Sol Allan Reason for consult: pulmonary embolism Chief complaint: Shortness of breath History of present illness: Patient is a 81-year-old white male but came into the ER with severe shortness of breath [facility]. It was found that he had multiple bilateral pulmonary emboli and a nonoccluding DVT to his left lower leg that could possibly be chronic in nature. Patient states that he has had blood clots in the past and was recently taken off of his anticoagulation medications about 6-7 months ago by his in home tutor. Patient last myocardial infarction with stent placement was in 2011 to his LAD. An echo was also performed of his heart which revealed an EF between 55-60%. Upon examination the patient is alert sitting up in bed and is on an IV heparin infusion. The patient becomes very short of breath and fatigued with simple conversation. He also states that he has chronic numbness to bilateral lower extremities. He denies any chest pain at this time. Review of Systems Full review of systems completed and is insignificant and noncontributory other than what's noted in the HPI Past Medical History Past Medical History: Coronary Artery Disease (CAD), COPD, Myocardial Infarction (MD), Pneumonia, Renal Disease, Seizure Disorder Additional Past Medical History / Comment(s): Pt had recent bilateral pneumonia- completed ABX yesterday. 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 Past medical records indicate HTN, high cholesterol, BPH and COPD, but pt and family deny these-see pt med list. 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 Past Anesthesia/Blood Transfusion Reactions: No Reported Reaction Date of Last Stent Placement:: 2014 Past Psychological History: No Psychological Hx Reported Additional Psychological History / Comment(s): Pt lives with his spouse of 60 yrs. He uses a walker. He drives. He is an [employer] and served over in [place]. Smoking Status: Never smoker Past Alcohol Use History: None Reported Past Drug Use History: None Reported - Past Family History Mother Additional Family Medical History / Comment(s): Mother had mental health problems. Father Family Medical History: No Reported History Medications and Allergies Home Medications Medication Instructions Recorded Confirmed Type Allopurinol [Zyloprim] 300 mg PO DAILY 09/23/16 09/23/16 History Atorvastatin [Lipitor] 80 mg PO DAILY 09/23/16 09/23/16 History Clopidogrel Bisulfate [Plavix] 75 mg PO DAILY 09/23/16 09/23/16 History Meclizine [Antivert] 12.5 mg PO TID PRN 09/23/16 09/23/16 History Omeprazole [PriLOSEC] 20 mg PO [id number]-[id number] 09/23/16 09/23/16 History Tamsulosin [Flomax] 0.4 mg PO DAILY 09/23/16 09/23/16 History amLODIPine BESYLATE/BENAZEPRIL 1 cap PO DAILY 09/23/16 09/23/16 History [amLODIPine BESYLATE/BENAZEPRIL 10-20 mg] methylPREDNISolone [Medrol Dose 4 mg PO DIRECTED 09/23/16 09/23/16 History Pack] Allergies Allergy/AdvReac Type Severity Reaction Status Date / Time Penicillins Allergy Rash/Hives Verified 09/23/16 09:14 Physical Exam Vitals: Vital Signs Temp Pulse Resp BP Pulse Ox 09/24/16 12:00 67 16 09/24/16 11:20 97.3 F L 67 16 146/91 95 09/24/16 09:35 68 144/88 09/24/16 08:44 70 16 09/24/16 07:45 70 16 09/24/16 07:35 96.5 F L 70 16 126/73 96 09/24/16 04:00 97.6 F 63 18 141/86 94 L 09/24/16 00:00 98.1 F 70 18 113/70 95 09/23/16 20:00 97.6 F 77 18 116/67 93 L 09/23/16 15:12 96.8 F L 90 22 128/93 94 L Intake and Output 09/23/16 09/24/16 09/24/16 22:59 06:59 14:59 Intake Total 236 500.000 197.933 Output Total 200 400 Balance 36 100.000 197.933 Intake: Intake, IV Titration 500.000 79.933 Amount Heparin Sodium,Porcine/ 500.000 79.933 D5w Pmx 25,000 unit In Dextrose/Water 1 500ml. bag @ 18 UNITS/KG/HR 43. 27 mls/hr IV .[id number] [facility] Rx#:[id number] Oral 236 118 Output: Urine 200 400 Other: Voiding Method Toilet Toilet Toilet Weight 120.202 kg 121.5 kg GENERAL EXAM: Alert, active, comfortable in no apparent distress. HEAD: Normocephalic. EYES: Normal reaction of pupils, equal size. NOSE: Clear with pink turbinates. THROAT: No erythema or exudates. NECK: No masses, no JVD. CHEST: No chest wall deformity. LUNGS: Equal air entry with no crackles, wheeze, rhonchi or dullness. CVS: S1 and S2 normal with no audible mumurs, regular rhythm. ABDOMEN: No hepatosplenomegaly, normal bowel sounds, no guarding or rigidity. EXTREMITIES: 2+ peripheral pulses, no edema. SKIN: No rashes CENTRAL NERVOUS SYSTEM: No focal deficits, tone is normal in all 4 extremities. Results - Laboratory Findings CBC and BMP: 09/24/16 06:20 09/24/16 06:20 PT/INR, D-dimer PT 11.5 sec (9.0-12.0) 09/23/16 06:50 INR 1.1 (<1.1) 09/23/16 06:50 D-Dimer 4.57 mg/L FEU (<0.60) H 09/23/16 14:01 Abnormal lab findings: Abnormal Labs 09/23/16 09/23/16 09/23/16 14:01 14:01 16:36 RBC Hct APTT 34.4 H D-Dimer 4.57 H Chloride Carbon Dioxide Creatinine Glucose POC Glucose (mg/dL) Total Creatine Kinase CK-MB (CK-2) 4.5 H* Troponin I 0.789 H* 09/23/16 09/23/16 09/23/16 20:25 20:29 22:22 RBC Hct APTT 177.8 H* D-Dimer Chloride Carbon Dioxide Creatinine Glucose POC Glucose (mg/dL) 148 H Total Creatine Kinase 185 H CK-MB (CK-2) 6.3 H* Troponin I 0.978 H* 09/24/16 09/24/16 09/24/16 06:20 06:20 06:20 RBC 3.99 L Hct 38.1 L APTT 101.0 H* D-Dimer Chloride 111 H Carbon Dioxide 19 L Creatinine 0.63 L Glucose 149 H POC Glucose (mg/dL) Total Creatine Kinase CK-MB (CK-2) Troponin I - Diagnostic Findings Chest x-ray: report reviewed, image reviewed CT scan - chest: report reviewed, image reviewed U/S of Legs: report reviewed, image reviewed Assessment and Plan Plan: Impression #1 multiple bilateral pulmonary emboli #2 left leg nonoccluding DVT, possibly chronic. #3 coronary artery disease #4 elevated troponin secondary to pulmonary emboli #5 chronic obstructive pulmonary disease #6 history of myocardial infarction with stent placement in 2011 #7 history of recent pneumonia finished antibiotics yesterday outpatient #8 obesity BMI 35.9 #9 history of BPH #10 history of seizure disorder #11 history of inguinal hernia #12 history of degenerative joint disease Plan Continue on the current medications and treatment, and use heparin drip protocol to achieve therapeutic PTT results. Continue using supplemental oxygen to keep sats above 92%. We will continue to monitor labs and adjust treatment as necessary. Cardiology is also on for consult. I performed an examination of the patient and discussed their management with the nurse practitioner. I have reviewed the nurse practitioner's note and agree with the documented findings and plan of care.
[2016-09-24] MEDS: SODIUM CHLORIDE 0.9% 1,000 ML IV SCH (16:32)
[2016-09-24] MEDS ORDERED: ONDANSETRON 4 MG/2 ML VIAL IVP PRN (21:42)
[2016-09-24] MEDS: MECLIZINE 12.5 MG TAB PO PRN (22:22)
[2016-09-25] MEDS: HEPARIN SODIUM,PORCINE/D5W PMX 25,000 UNIT in DEXTROSE/WATER 1 500ML.BAG IV SCH (04:51)
[2016-09-25] MEDS: PANTOPRAZOLE 40 MG TABLET PO SCH (06:25)
[2016-09-25 06:44] LABS: Basophils % (A) 0 %; CH 32.7; Eosinophils # (A) 0.1 k/uL (0-0.7); Eosinophils % (A) 1 %; HCT 38.9 % (39.0-53.0); HDW 3.17; HGB 13.2 gm/dL (13.0-17.5); Luc # (Auto) 0.09; Luc % (Auto) 1; Lymphocytes # (A) 1.5 k/uL (1.0-4.8); Lymphocytes % (A) 23 %; MCH 31.9 pg (25.0-35.0); Mean Platelet Volume 7.1; Monocytes # (A) 0.3 k/uL (0-1.0); Monocytes % (A) 5 %; Neutrophils # (A) 4.4 k/uL (1.3-7.7); Neutrophils % (A) 69 %; RBC 4.14 m/uL (4.30-5.90); RDW 14.7 % (11.5-15.5); WBC 6.5 k/uL (3.8-10.6); WBC (Perox) 6.87
[2016-09-25 07:22] LABS: ALT 70 U/L (21-72); AST 62 U/L (17-59); Alkaline Phosphatase 116 U/L (38-126); Anion Gap 10 mmol/L; Blood Urea Nitrogen 10 mg/dL (9-20); Calcium 8.2 mg/dL (8.4-10.2); Carbon Dioxide 24 mmol/L (22-30); Chloride 107 mmol/L (98-107); Glucose 138 mg/dL (74-99); Non-African American GFR(MDRD) >60 (>60 ml/min/1.73 sqM); Potassium 4.2 mmol/L (3.5-5.1); Sodium 141 mmol/L (137-145); Total Bilirubin 0.7 mg/dL (0.2-1.3); Total Protein 6.4 g/dL (6.3-8.2)
[2016-09-25] MEDS: LISINOPRIL 20 MG TAB PO SCH (08:30)
[2016-09-25] MEDS: ASPIRIN 81 MG CHEW PO SCH (08:30)
[2016-09-25] MEDS: ALLOPURINOL 300 MG TAB PO SCH (08:30)
[2016-09-25] MEDS: ATORVASTATIN 80 MG TAB PO SCH (08:30)
[2016-09-25] MEDS: TAMSULOSIN 0.4 MG CAP.ER.24H PO SCH (08:30)
[2016-09-25] MEDS: METOPROLOL TARTRATE 25 MG TAB PO SCH ×2 (08:30→20:58)
[2016-09-25] MEDS: amLODIPine 10 MG TAB PO SCH (08:31)
[2016-09-25] MEDS: APIXABAN 5 MG TAB PO SCH ×2 (08:50→20:58)
[2016-09-25] MEDS: MECLIZINE 12.5 MG TAB PO PRN (08:50)
--- NOTE | 2016-09-25 10:14 | P.PN ---
Subjective Principal diagnosis: Shortness of breath Interval history since last pulmonary progress note. Pt is being reevaluated and examined for pulmonary services today. The patient has multiple bilateral pulmonary emboli present and a nonoccluding DVT to his left lower leg that is probably chronic in nature. He has been taken off the heparin drip today and started on Eliquis. Upon examination the patient is alert sitting up in bed with family at bedside. The patient still becomes very short of breath with simple conversation. He denies any pain at this time Objective - Vital Signs Vital signs: Vital Signs Temp 97.6 F 09/25/16 08:31 Pulse 64 09/25/16 08:31 Resp 17 09/25/16 08:31 BP 145/88 09/25/16 08:31 Pulse Ox 97 09/25/16 08:31 Intake & Output 09/24/16 09/25/16 09/25/16 18:59 06:59 18:59 Intake Total 386.783 5797.067 118 Output Total 450 775 Balance -134.067 435.067 118 Weight 116.6 kg Intake: IV 240 Sodium Chloride 0.9% 1, 240 000 ml @ 20 mls/hr IV . Q24H [facility] Rx#:[id number] Intake, IV Titration 79.933 420.067 Amount Heparin Sodium,Porcine/ 79.933 420.067 D5w Pmx 25,000 unit In Dextrose/Water 1 500ml. bag @ 18 UNITS/KG/HR 43. 27 mls/hr IV .[id number] [facility] Rx#:[id number] Oral 236 550 118 Output: Urine 450 775 Other: Voiding Method Toilet Toilet Toilet # Voids 1 - Exam GENERAL EXAM: Alert, active, comfortable in no apparent distress. HEAD: Normocephalic. EYES: Normal reaction of pupils, equal size. NOSE: Clear with pink turbinates. THROAT: No erythema or exudates. NECK: No masses, no JVD. CHEST: No chest wall deformity. LUNGS: Equal air entry with no crackles, wheeze, rhonchi or dullness. CVS: S1 and S2 normal with no audible mumurs, regular rhythm. ABDOMEN: No hepatosplenomegaly, normal bowel sounds, no guarding or rigidity. EXTREMITIES: No edema noted, pedal pulses palpable. SKIN: No rashes CENTRAL NERVOUS SYSTEM: No focal deficits, tone is normal in all 4 extremities. - Labs CBC & Chem 7: 09/25/16 06:23 09/25/16 06:23 Labs: Abnormal Lab Results - Last 24 Hours (Table) 09/24/16 09/25/16 09/25/16 Range/Units 15:06 06:23 06:23 RBC 4.14 L (4.30-5.90) m/uL Hct 38.9 L (39.0-53.0) % Plt Count 121 L (150-450) k/uL APTT 65.1 H (22.0-30.0) sec Creatinine 0.59 L (0.66-1.25) mg/dL Glucose 138 H (74-99) mg/dL Calcium 8.2 L (8.4-10.2) mg/dL AST 62 H (17-59) U/L 09/25/16 Range/Units 06:23 RBC (4.30-5.90) m/uL Hct (39.0-53.0) % Plt Count (150-450) k/uL APTT 57.9 H (22.0-30.0) sec Creatinine (0.66-1.25) mg/dL Glucose (74-99) mg/dL Calcium (8.4-10.2) mg/dL AST (17-59) U/L Assessment and Plan Plan: Impression #1 multiple bilateral pulmonary emboli #2 left leg nonoccluding DVT, possibly chronic. #3 coronary artery disease #4 elevated troponin secondary to pulmonary emboli #5 chronic obstructive pulmonary disease #6 history of myocardial infarction with stent placement in 2011 #7 history of recent pneumonia finished antibiotics yesterday outpatient #8 obesity BMI 35.9 #9 history of BPH #10 history of seizure disorder #11 history of inguinal hernia #12 history of degenerative joint disease Plan Continue on the current medications and treatment, continue on anticoagulation therapy per cardiology. Continue using supplemental oxygen to keep sats above 92%. We will continue to monitor labs and adjust treatment as necessary. Cardiology is also on for consult. I performed an examination of the patient and discussed their management with the nurse practitioner. I have reviewed the nurse practitioner's note and agree with the documented findings and plan of care.
--- NOTE | 2016-09-25 11:17 | P.PN ---
Subjective Principal diagnosis: Bilateral pulmonary embolism, left lower extremity DVT Patient is an 81-year-old white male admitted with medical history significant for coronary artery disease, COPD, myocardial infarction with bare metal stent placement to his LAD in 2011 taken off anticoagulation approximately 6 months ago, admitted to the hospital with complaints of severe shortness of breath and found to have evidence of bilateral pulmonary emboli and nonoccluding DVT of left leg from upper femoral vein to the proximal calf vein, possible chronic. Echocardiogram shows moderate to severely enlarged right ventricle with overall preserved left ventricular systolic function with an EF between 55-60%. Patient has been started on Eliquis for anticoagulation and IV heparin has been discontinued. Upon examination, patient reports an improvement in breathing and states he is able to take a deep breath today. Patient reports chronic numbness to bilateral lower extremities since his knee operation. Denies chills , fevers, nausea, vomiting, cough, chest pain, abdominal pain, urinary frequency , urgency, dysuria, or hematuria. Denies constipation or diarrhea. Denies melena or hematemesis. Patient is tolerating his diet. Objective - Vital Signs Vital signs: Vital Signs Temp 97.6 F 09/25/16 08:31 Pulse 64 09/25/16 08:31 Resp 17 09/25/16 08:31 BP 145/88 09/25/16 08:31 Pulse Ox 97 09/25/16 08:31 Intake & Output 09/24/16 09/25/16 09/25/16 18:59 06:59 18:59 Intake Total 944.726 8336.067 118 Output Total 450 775 Balance -134.067 435.067 118 Weight 116.6 kg Intake: IV 240 Sodium Chloride 0.9% 1, 240 000 ml @ 20 mls/hr IV . Q24H [facility] Rx#:[id number] Intake, IV Titration 79.933 420.067 Amount Heparin Sodium,Porcine/ 79.933 420.067 D5w Pmx 25,000 unit In Dextrose/Water 1 500ml. bag @ 18 UNITS/KG/HR 43. 27 mls/hr IV .[id number] [facility] Rx#:[id number] Oral 236 550 118 Output: Urine 450 775 Other: Voiding Method Toilet Toilet Toilet # Voids 1 - Exam GENERAL: Pt awake and alert, well-appearing, well-nourished, and in no acute distress. HEAD: Atraumatic, normocephalic. EYES: Pupils equal, round and round, sclera anicteric, conjunctiva are normal. ENT: Moist mucous membranes. NECK:Supple without lymphadenopathy or JVD. LUNGS: Breath sounds clear to auscultation bilaterally. No wheezes, rales, or rhonchi. HEART: Heart S1, S2, no S3 or S4. Regular rate and rhythm. No murmurs, rubs or gallops. ABDOMEN: Soft, nontender, nondistended, normoactive bowel sounds. No guarding, no rebound. No masses or organomegaly appreciated. EXTREMITIES: 2+ peripheral pulses. No edema. No calf tenderness. NEUROLOGICAL: Pt oriented x 3. No focal deficits. Decreased sensation to bilateral lower extremities. PSYCH: Normal mood, normal affect. SKIN: Warm, dry, intact. - Labs CBC & Chem 7: 09/25/16 06:23 09/25/16 06:23 Labs: Abnormal Lab Results - Last 24 Hours (Table) 09/24/16 09/25/16 09/25/16 Range/Units 15:06 06:23 06:23 RBC 4.14 L (4.30-5.90) m/uL Hct 38.9 L (39.0-53.0) % Plt Count 121 L (150-450) k/uL APTT 65.1 H (22.0-30.0) sec Creatinine 0.59 L (0.66-1.25) mg/dL Glucose 138 H (74-99) mg/dL Calcium 8.2 L (8.4-10.2) mg/dL AST 62 H (17-59) U/L 09/25/16 Range/Units 06:23 RBC (4.30-5.90) m/uL Hct (39.0-53.0) % Plt Count (150-450) k/uL APTT 57.9 H (22.0-30.0) sec Creatinine (0.66-1.25) mg/dL Glucose (74-99) mg/dL Calcium (8.4-10.2) mg/dL AST (17-59) U/L Assessment and Plan Plan: Impression: 1. Shortness of breath secondary to acute bilateral pulmonary emboli, improved. 2. Left leg nonoccluding DVT, possible chronic. 3. Coronary artery disease. 4. Elevated troponins suspect secondary to pulmonary embolism. 5. Chronic obstructive pulmonary disease. 6. History of myocardial infarction with bare-metal stent placement in 2011. 7. History recent pneumonia. 8. Obesity. BMI of 36.3. 9. BPH. 10. History of seizure disorder. 11. History of inguinal hernia. 12. History of degenerative joint disease. Plan: 1. Continue to monitor patient. Continue current medications. Continue symptomatic treatment. Continue GI and DVT prophylaxis. Continue to follow with cardiology and pulmonology service. Repeat CBC, BMP in a.m. The above impression and plan have been discussed and directed by Dr. Lopez. Michael PARKER acting as scribe for Dr. Lopez.
--- NOTE | 2016-09-25 13:05 | P.PN ---
Subjective Principal diagnosis: Pulmonary embolism This is a pleasant 81-year-old gentleman who presented to the hospital mainly with symptoms of dyspnea. He has a known history of coronary artery disease with prior PCI of the LAD in 2011. He follows regularly with Dr. Ashraf in the office patient also has history of hypertension, hyperlipidemia. On admission here patient's troponins were noted to be mildly elevated, d-dimer was obtained yesterday, which came back to be 4.7. Subsequent to that patient underwent a CT of the chest which confirmed pulmonary embolism. Venous duplex study was then performed which revealed positive DVT in the left upper femoral vein. He was initiated on Eliquis per PE protocol. From cardiology's perspective he may be able to be discharged home today. A follow-up appointment will be made with Dr. Jimenes in the office post discharge. His Plavix has been discontinued. Objective - Vital Signs Vital signs: Vital Signs Temp 97.4 F L 09/25/16 11:41 Pulse 64 09/25/16 11:41 Resp 18 09/25/16 11:41 BP 150/80 09/25/16 11:41 Pulse Ox 96 09/25/16 11:41 Intake & Output 09/24/16 09/25/16 09/25/16 18:59 06:59 18:59 Intake Total 435.900 9204.067 418 Output Total 450 775 Balance -134.067 435.067 418 Weight 116.6 kg Intake: IV 240 Sodium Chloride 0.9% 1, 240 000 ml @ 20 mls/hr IV . Q24H [facility] Rx#:[id number] Intake, IV Titration 79.933 420.067 Amount Heparin Sodium,Porcine/ 79.933 420.067 D5w Pmx 25,000 unit In Dextrose/Water 1 500ml. bag @ 18 UNITS/KG/HR 43. 27 mls/hr IV .[id number] [facility] Rx#:[id number] Oral 236 550 418 Output: Urine 450 775 Other: Voiding Method Toilet Toilet Toilet # Voids 1 - Exam PHYSICAL EXAMINATION: HEENT: Head is atraumatic, normocephalic. Pupils equal, round. Neck is supple. There is no elevated jugular venous pressure. HEART EXAMINATION: Heart S1, S2 normal. No murmur or gallop heard. CHEST EXAMINATION: Lungs are clear to auscultation and precussion. No chest wall tenderness is noted on palpation or with deep breathing. ABDOMEN: Soft, nontender. Bowel sounds are heard. No organomegaly noted. EXTREMITIES: 2+ peripheral pulses with no evidence of peripheral edema and no calf tenderness noted. NEUROLOGIC patient is awake, alert and oriented -3. . - Labs CBC & Chem 7: 09/25/16 06:23 09/25/16 06:23 Labs: Abnormal Lab Results - Last 24 Hours (Table) 09/24/16 09/25/16 09/25/16 Range/Units 15:06 06:23 06:23 RBC 4.14 L (4.30-5.90) m/uL Hct 38.9 L (39.0-53.0) % Plt Count 121 L (150-450) k/uL APTT 65.1 H (22.0-30.0) sec Creatinine 0.59 L (0.66-1.25) mg/dL Glucose 138 H (74-99) mg/dL Calcium 8.2 L (8.4-10.2) mg/dL AST 62 H (17-59) U/L 09/25/16 Range/Units 06:23 RBC (4.30-5.90) m/uL Hct (39.0-53.0) % Plt Count (150-450) k/uL APTT 57.9 H (22.0-30.0) sec Creatinine (0.66-1.25) mg/dL Glucose (74-99) mg/dL Calcium (8.4-10.2) mg/dL AST (17-59) U/L Assessment and Plan (1) Pulmonary embolism Status: Acute (2) CAD (coronary artery disease) Status: Acute (3) HTN (hypertension) Status: Acute (4) Hyperlipemia Status: Acute (5) DVT (deep venous thrombosis) Status: Acute Plan: Cardiology's perspective, patient may be able to be discharged home today. He will be discharged home on Eliquis per PE protocol. Plavix has been discontinued. DNP note has been reviewed, I agree with a documented findings and plan of care. Patient was seen and examined.
[2016-09-25] MEDS: SODIUM CHLORIDE 0.9% 1,000 ML IV SCH (20:55)
[2016-09-26 06:39] LABS: Basophils % (A) 0 %; CH 32.9; CHCM 35.9; Eosinophils # (A) 0.1 k/uL (0-0.7); Eosinophils % (A) 2 %; HCT 38.7 % (39.0-53.0); HDW 3.24; HGB 13.8 gm/dL (13.0-17.5); Luc # (Auto) 0.09; Luc % (Auto) 2; Lymphocytes # (A) 1.4 k/uL (1.0-4.8); Lymphocytes % (A) 24 %; MCH 32.8 pg (25.0-35.0); MCHC 35.5 g/dL (31.0-37.0); MCV 92.2 fL (80.0-100.0); Mean Platelet Volume 7.4; Monocytes # (A) 0.3 k/uL (0-1.0); Monocytes % (A) 6 %; Neutrophils # (A) 3.8 k/uL (1.3-7.7); Neutrophils % (A) 67 %; RDW 14.8 % (11.5-15.5); WBC 5.7 k/uL (3.8-10.6); WBC (Perox) 6.14
[2016-09-26] MEDS: PANTOPRAZOLE 40 MG TABLET PO SCH (06:39)
[2016-09-26 06:53] LABS: ALT 72 U/L (21-72); AST 53 U/L (17-59); Alkaline Phosphatase 115 U/L (38-126); Anion Gap 10 mmol/L; Blood Urea Nitrogen 10 mg/dL (9-20); Calcium 8.7 mg/dL (8.4-10.2); Carbon Dioxide 25 mmol/L (22-30); Chloride 106 mmol/L (98-107); Glucose 126 mg/dL (74-99); Non-African American GFR(MDRD) >60 (>60 ml/min/1.73 sqM); Sodium 141 mmol/L (137-145); Total Bilirubin 0.7 mg/dL (0.2-1.3); Total Protein 6.4 g/dL (6.3-8.2)
[2016-09-26] MEDS: ALLOPURINOL 300 MG TAB PO SCH (08:12)
[2016-09-26] MEDS: TAMSULOSIN 0.4 MG CAP.ER.24H PO SCH (08:12)
[2016-09-26] MEDS: METOPROLOL TARTRATE 25 MG TAB PO SCH (08:12)
[2016-09-26] MEDS: ASPIRIN 81 MG CHEW PO SCH (08:12)
[2016-09-26] MEDS: LISINOPRIL 20 MG TAB PO SCH (08:12)
[2016-09-26] MEDS: APIXABAN 5 MG TAB PO SCH (08:12)
[2016-09-26] MEDS: ATORVASTATIN 80 MG TAB PO SCH (08:13)
[2016-09-26] MEDS: amLODIPine 10 MG TAB PO SCH (08:13)
--- NOTE | 2016-09-26 08:45 | PN ---
Mr. Shah is an 81-year-old male with a history of coronary artery disease, who presented with symptoms of progressive dyspnea and was diagnosed with pulmonary embolism. He is feeling much better. He denies any symptoms of chest pain. He denies any dizziness, palpitation. He denies any nausea. He is ambulating without much difficulty. He continues to be on Eliquis 10 mg twice a day, subsequently to be switched in 7 days to 5 mg twice a day, aspirin 81 mg daily, Lipitor 80 mg daily, Zestril 20 mg daily, metoprolol tartrate 25 mg twice a day, and amlodipine 10 mg daily. PHYSICAL EXAMINATION: Blood pressure 138/80 with a heart rate in the 70s. LUNGS: Clear. HEART: Regular rate and rhythm. S1 and S2, no S3, no rub. ABDOMEN: Soft, nontender. EXTREMITIES: No edema. Lab data revealed BUN and creatinine of 10 and 0.6. Potassium 4.0. Hemoglobin is 13.8. IMPRESSION: 1. Pulmonary embolism treated symptoms improved. 2. History of coronary artery disease. 3. Hyperlipidemia. 4. Hypertension. RECOMMENDATIONS: From the cardiac standpoint, the patient should be able to be discharged home today and follow as an outpatient.
[2016-09-26 09:00] VITALS: PULSE 62
[2016-09-26 09:02] VITALS: BP 143/73; RESP 18; TEMP 98.3
--- NOTE | 2016-09-26 09:33 | P.PN ---
Subjective Principal diagnosis: Shortness of breath Interval history since last pulmonary progress note. Pt is being reevaluated and examined for pulmonary services today. The patient has multiple bilateral pulmonary emboli present and a nonoccluding DVT to his left lower leg that is probably chronic in nature. He has been taken off the heparin drip, and started on Eliquis yesterday. Upon examination the patient is alert sitting up in bed with family at bedside. The patient is able to ambulate and have conversation without shortness of breath which is a significant improvement. The patient is on room air, denies shortness of breath, any cough, or sputum production. He denies any pain at this time Objective - Vital Signs Vital signs: Vital Signs Temp 98.3 F 09/26/16 08:00 Pulse 62 09/26/16 08:00 Resp 18 09/26/16 08:00 BP 143/73 09/26/16 08:00 Pulse Ox 95 09/26/16 08:00 Intake & Output 09/25/16 09/26/16 09/26/16 18:59 06:59 18:59 Intake Total 518 400 Output Total 650 100 100 Balance -132 300 -100 Weight 115.4 kg 115.4 kg Intake: Oral 518 400 Output: Urine 650 100 100 Other: Voiding Method Toilet Toilet Toilet # Voids 1 1 - Exam GENERAL EXAM: Alert, active, comfortable in no apparent distress. HEAD: Normocephalic. EYES: Normal reaction of pupils, equal size. NOSE: Clear with pink turbinates. THROAT: No erythema or exudates. NECK: No masses, no JVD. CHEST: No chest wall deformity. LUNGS: Equal air entry with no crackles, wheeze, rhonchi or dullness. CVS: S1 and S2 normal with no audible mumurs, regular rhythm. ABDOMEN: No hepatosplenomegaly, normal bowel sounds, no guarding or rigidity. EXTREMITIES: No edema noted, pedal pulses palpable. SKIN: No rashes CENTRAL NERVOUS SYSTEM: No focal deficits, tone is normal in all 4 extremities. - Labs CBC & Chem 7: 09/26/16 06:09 09/26/16 06:06 Labs: Abnormal Lab Results - Last 24 Hours (Table) 09/26/16 09/26/16 Range/Units 06:06 06:09 RBC 4.20 L (4.30-5.90) m/uL Hct 38.7 L (39.0-53.0) % Plt Count 123 L (150-450) k/uL Creatinine 0.60 L (0.66-1.25) mg/dL Glucose 126 H (74-99) mg/dL Assessment and Plan Plan: Impression #1 multiple bilateral pulmonary emboli #2 left leg nonoccluding DVT, possibly chronic. #3 coronary artery disease #4 elevated troponin secondary to pulmonary emboli #5 chronic obstructive pulmonary disease #6 history of myocardial infarction with stent placement in 2011 #7 history of recent pneumonia finished antibiotics yesterday outpatient #8 obesity BMI 35.9 #9 history of BPH #10 history of seizure disorder #11 history of inguinal hernia #12 history of degenerative joint disease Plan The patient is cleared from a pulmonary standpoint to be discharged home. Continue on the current medications and treatment, continue on anticoagulation therapy per cardiology. We will have the patient follow up in office within one week of discharge. I performed an examination of the patient and discussed their management with the nurse practitioner. I have reviewed the nurse practitioner's note and agree with the documented findings and plan of care.
--- NOTE | 2016-09-26 13:03 | P.DS ---
Providers Date of admission: 09/23/16 11:10 Expected date of discharge: 09/26/16 Attending physician: Roel Lopez Consults: 09/23/16 17:30 Consult Physician Routine Consulting Provider: Dwayne Lemos Consult Reason/Comments: pe Do you want consulting provider notified?: Yes Primary care physician: Roel Lopez Hospital Course: Patient is an 81-year-old white male admitted with medical history significant for coronary artery disease, COPD, myocardial infarction with bare metal stent placement to his LAD in 2011 taken off anticoagulation approximately 6 months ago, admitted to the hospital with complaints of severe shortness of breath and found to have evidence of bilateral pulmonary emboli and nonoccluding DVT of left leg from upper femoral vein to the proximal calf vein, possible chronic. Echocardiogram shows moderate to severely enlarged right ventricle with overall preserved left ventricular systolic function with an EF between 55-60%. Cardiology and pulmonary consult were requested. Patient was initiated on IV heparin and converted to Eliquis for anticoagulation. Patient's breathing improved significantly during hospital stay and patient was deemed stable for discharge to home with close follow-up in the outpatient setting. Discharge diagnoses: 1. Shortness of breath secondary to acute bilateral pulmonary emboli. 2. Left leg nonoccluding DVT, possible chronic. 3. Coronary artery disease. 4. Elevated troponins suspect secondary to pulmonary embolism. 5. Chronic obstructive pulmonary disease. 6. History of myocardial infarction with bare-metal stent placement in 2011. 7. History recent pneumonia. 8. Obesity. BMI of 36.3. 9. BPH. 10. History of seizure disorder. 11. History of inguinal hernia. 12. History of degenerative joint disease. The above impression and plan have been discussed and directed by Dr. Lopez. Michael PARKER acting as scribe for Dr. Lopez. Pertinent Studies: Chest x-ray; EKG; echocardiogram with Doppler; chest CTA; venous Doppler study Patient Condition at Discharge: Good Plan - Discharge Summary New Discharge Prescriptions: Apixaban [Eliquis] 10 mg PO BID #21 tab Apixaban [Eliquis] 5 mg PO BID #60 tab Aspirin 81 mg PO DAILY #30 chew Lisinopril [Zestril] 20 mg PO DAILY #30 tab Metoprolol Tartrate [Lopressor] 25 mg PO BID #60 tab Discharge Medication List Allopurinol [Zyloprim] 300 mg PO DAILY 09/23/16 [History] Atorvastatin [Lipitor] 80 mg PO DAILY 09/23/16 [History] Meclizine [Antivert] 12.5 mg PO TID PRN 09/23/16 [History] Omeprazole [PriLOSEC] 20 mg PO AC-BRKFST 09/23/16 [History] Tamsulosin [Flomax] 0.4 mg PO DAILY 09/23/16 [History] amLODIPine BESYLATE/BENAZEPRIL [amLODIPine BESYLATE/BENAZEPRIL 10-20 mg] 1 cap PO DAILY 09/23/16 [History] Apixaban [Eliquis] 5 mg PO BID #60 tab 09/26/16 [Rx] Apixaban [Eliquis] 10 mg PO BID #21 tab 09/26/16 [Rx] Aspirin 81 mg PO DAILY #30 chew 09/26/16 [Rx] Lisinopril [Zestril] 20 mg PO DAILY #30 tab 09/26/16 [Rx] Metoprolol Tartrate [Lopressor] 25 mg PO BID #60 tab 09/26/16 [Rx] Follow up Appointment(s)/Referral(s): Gary Jimenes MD [STAFF PHYSICIAN] - 10/09/16 3:00 pm Roel Lopez DO [Primary Care Provider] - 10/03/16 2:20 pm Dwayne Lemos MD [STAFF PHYSICIAN] - 10/03/16 12:45 pm Patient Instructions/Handouts: Pulmonary Embolism (DC) Activity/Diet/Wound Care/Special Instructions: eliquise take 2 pills twice daily until 10/01/16. 10/02/16 start 1 pill twice daily. Discharge Disposition: HOME SELF-CARE
[2016-10-02] MEDS ORDERED: APIXABAN 5 MG TAB PO SCH (09:00)
== END 2016-09-26 10:13 | disposition home or self-care (01) | DRG 176 ==
LOC: EC 06:37 → 6SEL 11:10
PROVIDERS: ADMIT Family Medicine; ATTEND Family Medicine
DX: I26.99 Other pulmonary embolism without acute cor pulmonale (principal); I82.512 Chronic embolism and thrombosis of left femoral vein; E83.42 Hypomagnesemia; J44.9 Chronic obstructive pulmonary disease, unspecified; I82.532 Chronic embolism and thrombosis of left popliteal vein; G40.909 Epilepsy, unspecified, not intractable, without status epilepticus; E78.00 Pure hypercholesterolemia, unspecified; E78.5 Hyperlipidemia, unspecified; I10 Essential (primary) hypertension; I25.2 Old myocardial infarction; I25.10 Atherosclerotic heart disease of native coronary artery without angina pectoris; N40.0 Benign prostatic hyperplasia without lower urinary tract symptoms; E66.9 Obesity, unspecified; Z68.36 Body mass index [BMI] 36.0-36.9, adult; M19.90 Unspecified osteoarthritis, unspecified site; Z95.5 Presence of coronary angioplasty implant and graft; Z87.442 Personal history of urinary calculi; Z87.01 Personal history of pneumonia (recurrent); Z86.011 Personal history of benign neoplasm of the brain; Z79.02 Long term (current) use of antithrombotics/antiplatelets; Z79.52 Long term (current) use of systemic steroids; Z79.899 Other long term (current) drug therapy
CPT/HCPCS: 36415; 71020; 71275; 80053; 80061; 82550; 82553; 83735; 83880; 84484; 85025; 85379; 85610; 85730; 87040; 93005; 93306; 93970; 96365; 96366; 96367; 96375; 96376; 99291

== ENCOUNTER 2018-11-03 09:24 | Emergency (ER) | payer MEDICARE, BC ==
[2018-11-03 09:30] VITALS: BP 157/83; PULSE 64; RESP 24; TEMP 97.4
[2018-11-03] MEDS ORDERED: ASPIRIN 81 MG PO STA (09:52)
[2018-11-03] MEDS ORDERED: NITROGLYCERIN OINT 1 INCH/GM PACKET TOPICAL STA (09:52)
--- NOTE | 2018-11-03 09:59 | ED ---
General Adult HPI - General Chief complaint: Chest Pain Stated complaint: MARIELA, chest pain Time Seen by Provider: 11/03/18 09:30 Source: patient, RN notes reviewed Mode of arrival: wheelchair Limitations: no limitations - History of Present Illness Initial comments: This is an 83-year-old male who presents emergency department with past mental history significant for coronary artery stent. Patient comes in today complaining that he had bad heartburn and he got a peppermint and it seemed to go away. Patient states at that point time he went to the mall to walk around and he started having severe mid back pain with shortness of breath diaphoresis and it lasted about 15-20 minutes and it subsided on its own when he arrived at the ER. Patient states he currently is symptom-free. Patient denies any recent fever chills or cough. Patient denies any lightheadedness dizziness or near syncopal episode. Patient denies any headache patient denies numbness weakness per patient and leg swelling or calf tenderness. Patient denies any abdominal pain patient denies nausea vomiting diarrhea. - Related Data Home Medications Medication Instructions Recorded Confirmed Allopurinol [Zyloprim] 300 mg PO DAILY 09/23/16 11/03/18 Atorvastatin [Lipitor] 80 mg PO DAILY 09/23/16 11/03/18 Meclizine [Antivert] 12.5 mg PO TID PRN 09/23/16 11/03/18 Omeprazole [PriLOSEC] 20 mg PO AC-BRKFST 09/23/16 11/03/18 Tamsulosin [Flomax] 0.4 mg PO DAILY 09/23/16 11/03/18 amLODIPine BESYLATE/BENAZEPRIL 1 cap PO DAILY 09/23/16 11/03/18 [amLODIPine BESYLATE/BENAZEPRIL 10-20 MG] Carvedilol [Coreg] 25 mg PO BID 11/21/17 11/03/18 Clopidogrel [Plavix] 75 mg PO DAILY 11/21/17 11/03/18 Metoprolol Tartrate [Lopressor] 25 mg PO DAILY 11/21/17 11/03/18 Phenytoin Sodium Extended 200 mg PO TID 11/21/17 11/03/18 [Dilantin] Previous Rx's Medication Instructions Recorded Apixaban [Eliquis] 5 mg PO BID #60 tab 09/26/16 Aspirin 81 mg PO DAILY #30 chew 09/26/16 Lisinopril [Zestril] 20 mg PO DAILY #30 tab 09/26/16 Allergies Allergy/AdvReac Type Severity Reaction Status Date / Time Penicillins Allergy Rash/Hives Verified 11/03/18 10:36 Review of Systems ROS Statement: Those systems with pertinent positive or pertinent negative responses have been documented in the HPI. ROS Other: All systems not noted in ROS Statement are negative. Past Medical History Past Medical History: Coronary Artery Disease (CAD), COPD, Hyperlipidemia, Hypertension, Myocardial Infarction ([place]), Pneumonia, Renal Disease, Seizure Disorder Additional Past Medical History / Comment(s): Pt had recent bilateral pneumonia-completed ABX yesterday. 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 Past medical records indicate HTN, high cholesterol, BPH and COPD, but pt and family deny these-see pt med list. 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 Past Anesthesia/Blood Transfusion Reactions: No Reported Reaction Date of Last Stent Placement:: 2014 Past Psychological History: No Psychological Hx Reported Smoking Status: Never smoker Past Alcohol Use History: None Reported Past Drug Use History: None Reported - Past Family History Mother Additional Family Medical History / Comment(s): Mother had mental health problems. Father Family Medical History: No Reported History General Exam - General Exam Comments Initial Comments: GENERAL: Patient is well-developed and well-nourished. Patient is nontoxic and well- hydrated and is in no acute distress. ENT: Neck is soft and supple. No significant lymphadenopathy is noted. Oropharynx is clear. Moist mucous membranes. Neck has full range of motion without el iciting any pain. EYES: The sclera were anicteric and conjunctiva were pink and moist. Extraocular movements were intact and pupils were equal round and reactive to light. Eyelids were unremarkable. PULMONARY: Unlabored respirations. Good breath sounds bilaterally. No audible rales rhonchi or wheezing was noted. CARDIOVASCULAR: There is a regular rate and rhythm without any murmurs gallops or rubs. ABDOMEN: Soft and nontender with normal bowel sounds. No palpable organomegaly was no adalid. There is no palpable pulsatile mass. SKIN: Skin is clear with no lesions or rashes and otherwise unremarkable. NEUROLOGIC: Patient is alert and oriented x3. Cranial nerves II through XII are grossly intact. Motor and sensory are also intact. Normal speech, volume and content. Symmetrical smile. MUSCULOSKELETAL: Normal extremities with adequate strength and full range of motion. No lower extremity swelling or edema. No calf tenderness. LYMPHATICS: No significant lymphadenopathy is noted PSYCHIATRIC: Normal psychiatric evaluation. Limitations: no limitations Course Vital Signs 11/03/18 09:28 Temperature 97.4 F L Pulse Rate 64 Respiratory 24 Rate Blood Pressure 157/83 O2 Sat by Pulse 96 Oximetry Medical Decision Making - Medical Decision Making EKG shows a normal sinus rhythm at a rate of 60 bpm CA interval is 202 QRS is 88 QT interval 4:30 QTC is 4:30. Patient's EKG shows no ST segment elevation or depression. Chest x-ray shows no acute abnormality. I went back in to discuss the results with the patient and indicated to the patient he needed to stay patient refused to stay we talked about it and on 3 different occasions he said he wants to sign out AMA. Patient understood the risks - Lab Data Result diagrams: 11/03/18 10:17 11/03/18 10:17 Lab Results 11/03/18 11/03/18 11/03/18 Range/Units 10:17 10:17 10:17 WBC 5.8 (3.8-10.6) k/uL RBC 4.08 L (4.30-5.90) m/uL Hgb 12.6 L (13.0-17.5) gm/dL Hct 37.9 L (39.0-53.0) % MCV 92.9 (80.0-100.0) fL MCH 30.9 (25.0-35.0) pg MCHC 33.3 (31.0-37.0) g/dL RDW 15.3 (11.5-15.5) % Plt Count 137 L (150-450) k/uL Neutrophils % 72 % Lymphocytes % 21 % Monocytes % 5 % Eosinophils % 1 % Basophils % 0 % Neutrophils # 4.1 (1.3-7.7) k/uL Lymphocytes # 1.2 (1.0-4.8) k/uL Monocytes # 0.3 (0-1.0) k/uL Eosinophils # 0.1 (0-0.7) k/uL Basophils # 0.0 (0-0.2) k/uL PT 10.6 (9.0-12.0) sec INR 1.0 (<1.2) APTT 23.6 (22.0-30.0) sec Sodium 139 (137-145) mmol/L Potassium 4.3 (3.5-5.1) mmol/L Chloride 106 (98-107) mmol/L Carbon Dioxide 24 (22-30) mmol/L Anion Gap 9 mmol/L BUN 10 (9-20) mg/dL Creatinine 0.46 L (0.66-1.25) mg/dL Est GFR (CKD-EPI)AfAm >90 (>60 ml/min/1.73 sqM) Est GFR (CKD-EPI)NonAf >90 (>60 ml/min/1.73 sqM) Glucose 239 H (74-99) mg/dL Calcium 8.4 (8.4-10.2) mg/dL Magnesium 1.6 (1.6-2.3) mg/dL Total Bilirubin 0.7 (0.2-1.3) mg/dL AST 34 (17-59) U/L ALT 39 (21-72) U/L Alkaline Phosphatase 122 (38-126) U/L Troponin I (0.000-0.034) ng/mL Total Protein 6.4 (6.3-8.2) g/dL Albumin 3.9 (3.5-5.0) g/dL 11/03/18 Range/Units 10:17 WBC (3.8-10.6) k/uL RBC (4.30-5.90) m/uL Hgb (13.0-17.5) gm/dL Hct (39.0-53.0) % MCV (80.0-100.0) fL MCH (25.0-35.0) pg MCHC (31.0-37.0) g/dL RDW (11.5-15.5) % Plt Count (150-450) k/uL Neutrophils % % Lymphocytes % % Monocytes % % Eosinophils % % Basophils % % Neutrophils # (1.3-7.7) k/uL Lymphocytes # (1.0-4.8) k/uL Monocytes # (0-1.0) k/uL Eosinophils # (0-0.7) k/uL Basophils # (0-0.2) k/uL PT (9.0-12.0) sec INR (<1.2) APTT (22.0-30.0) sec Sodium (137-145) mmol/L Potassium (3.5-5.1) mmol/L Chloride (98-107) mmol/L Carbon Dioxide (22-30) mmol/L Anion Gap mmol/L BUN (9-20) mg/dL Creatinine (0.66-1.25) mg/dL Est GFR (CKD-EPI)AfAm (>60 ml/min/1.73 sqM) Est GFR (CKD-EPI)NonAf (>60 ml/min/1.73 sqM) Glucose (74-99) mg/dL Calcium (8.4-10.2) mg/dL Magnesium (1.6-2.3) mg/dL Total Bilirubin (0.2-1.3) mg/dL AST (17-59) U/L ALT (21-72) U/L Alkaline Phosphatase (38-126) U/L Troponin I <0.012 (0.000-0.034) ng/mL Total Protein (6.3-8.2) g/dL Albumin (3.5-5.0) g/dL Disposition Clinical Impression: Unstable angina pectoris Disposition: Left Against Medical Advice Is patient prescribed a controlled substance at d/c from ED?: No Referrals: Roel Lopez DO [Primary Care Provider] - 1-2 days Time of Disposition: 12:22
[2018-11-03 10:33] LABS: Basophils % (A) 0 %; Eosinophils # (A) 0.1 k/uL (0-0.7); Eosinophils % (A) 1 %; HCT 37.9 % (39.0-53.0); HGB 12.6 gm/dL (13.0-17.5); Lymphocytes # (A) 1.2 k/uL (1.0-4.8); Lymphocytes % (A) 21 %; MCH 30.9 pg (25.0-35.0); MCHC 33.3 g/dL (31.0-37.0); MCV 92.9 fL (80.0-100.0); Mean Platelet Volume 7.1; Monocytes # (A) 0.3 k/uL (0-1.0); Monocytes % (A) 5 %; Neutrophils # (A) 4.1 k/uL (1.3-7.7); Neutrophils % (A) 72 %; Platelet Count 137 k/uL (150-450); RBC 4.08 m/uL (4.30-5.90); RDW 15.3 % (11.5-15.5); WBC 5.8 k/uL (3.8-10.6)
[2018-11-03 10:43] LABS: Partial Thromboplastin Time 23.6 sec (22.0-30.0); Prothrombin Time 10.6 sec (9.0-12.0)
[2018-11-03 10:45] LABS: ALT 39 U/L (21-72); AST 34 U/L (17-59); Albumin 3.9 g/dL (3.5-5.0); Alkaline Phosphatase 122 U/L (38-126); Anion Gap 9 mmol/L; Blood Urea Nitrogen 10 mg/dL (9-20); Calcium 8.4 mg/dL (8.4-10.2); Carbon Dioxide 24 mmol/L (22-30); Chloride 106 mmol/L (98-107); Glucose 239 mg/dL (74-99); Magnesium 1.6 mg/dL (1.6-2.3); Potassium 4.3 mmol/L (3.5-5.1); Sodium 139 mmol/L (137-145); Total Bilirubin 0.7 mg/dL (0.2-1.3); Total Protein 6.4 g/dL (6.3-8.2)
--- NOTE | 2018-11-03 10:51 | XR ---
EXAMINATION TYPE: XR chest 2V DATE OF EXAM: 11/03/2018 COMPARISON: 11/21/2017 INDICATION: Chest pain short of breath TECHNIQUE: Frontal and lateral views of the chest are obtained. FINDINGS: The heart size is mildly prominent. The pulmonary vasculature is normal. There is poor inspiration on the lateral projection. Focal consolidation is not identified. Some mild increased posterior lung density, likely at the left base may be present. Correlate for atelectasis. Pneumonia could be considered.. IMPRESSION: 1. Mild cardiomegaly. 2. Clinical correlation recommended for retrocardiac infiltrate. Atelectasis and pneumonia should be considered.
== END 2018-11-03 12:39 | disposition left against medical advice (07) ==
LOC: EC 09:24
DX: I25.110 Atherosclerotic heart disease of native coronary artery with unstable angina pectoris (principal); E78.5 Hyperlipidemia, unspecified; I10 Essential (primary) hypertension; I25.2 Old myocardial infarction; G40.909 Epilepsy, unspecified, not intractable, without status epilepticus; N40.0 Benign prostatic hyperplasia without lower urinary tract symptoms; Z87.09 Personal history of other diseases of the respiratory system; Z87.01 Personal history of pneumonia (recurrent); Z95.5 Presence of coronary angioplasty implant and graft; Z79.02 Long term (current) use of antithrombotics/antiplatelets; Z79.899 Other long term (current) drug therapy; Z88.0 Allergy status to penicillin; Z53.29 Procedure and treatment not carried out because of patient's decision for other reasons
CPT/HCPCS: 36415; 71046; 80053; 83735; 84484; 85025; 85610; 85730; 93005; 99285

== ENCOUNTER 2018-11-03 23:01 | Inpatient (IN) | payer MEDICARE, BC ==
[2018-11-03] MEDS ORDERED: SODIUM CHLORIDE 0.9% 500 ML 500 ML IV STA (23:38)
[2018-11-03] MEDS ORDERED: ACETAMINOPHEN TAB 500 MG TAB PO STA (23:38)
[2018-11-03] MEDS ORDERED: FAMOTIDINE 20 MG/2 ML VIAL IV STA (23:38)
[2018-11-04] MEDS ORDERED: ONDANSETRON 4 MG/2 ML VIAL IVP STA (00:01)
--- NOTE | 2018-11-04 00:08 | ED ---
Chest Pain HPI - General Source: patient, family Mode of arrival: ambulatory Limitations: no limitations <April Mckeon - Last Filed: 11/04/18 03:27> <Lizzeth Amezquita - Last Filed: 11/04/18 21:50> - General Chief Complaint: Chest Pain Stated Complaint: Chest Pain, MARIELA Time Seen by Provider: 11/03/18 23:23 - History of Present Illness Initial Comments: 83-year-old male patient presents to the emergency department today for evaluation of chest pain and nausea. Patient is also reporting shortness of breath with this. States symptoms started earlier in the day today. States he was seen and evaluated here but did leave AGAINST MEDICAL ADVICE. Patient began having return of symptoms a couple hours after arriving home and this seemed to worsen through the night. Patient is reporting an intense burning pain to his upper abdomen and radiating into his chest. States is causing him to be short of breath. Patient is also reporting shaking chills. He denies any cough or congestion. Denies any known fever. Denies any constipation, diarrhea, or urinary symptoms. Patient denies any recent rash, back pain, numbness, tingling, dizziness, weakness, hematuria, dysuria, urinary urgency, urinary frequency, headache, visual changes, or any other complaints. (April Mckeon) - Related Data Home Medications Medication Instructions Recorded Confirmed Allopurinol [Zyloprim] 300 mg PO DAILY 09/23/16 11/03/18 Atorvastatin [Lipitor] 80 mg PO DAILY 09/23/16 11/03/18 Meclizine [Antivert] 12.5 mg PO TID PRN 09/23/16 11/03/18 Omeprazole [PriLOSEC] 20 mg PO AC-BRKFST 09/23/16 11/03/18 Tamsulosin [Flomax] 0.4 mg PO DAILY 09/23/16 11/03/18 amLODIPine BESYLATE/BENAZEPRIL 1 cap PO DAILY 09/23/16 11/03/18 [amLODIPine BESYLATE/BENAZEPRIL 10-20 MG] Carvedilol [Coreg] 25 mg PO BID 11/21/17 11/03/18 Clopidogrel [Plavix] 75 mg PO DAILY 11/21/17 11/03/18 Metoprolol Tartrate [Lopressor] 25 mg PO DAILY 11/21/17 11/03/18 Phenytoin Sodium Extended 200 mg PO TID 11/21/17 11/03/18 [Dilantin] Previous Rx's Medication Instructions Recorded Apixaban [Eliquis] 5 mg PO BID #60 tab 09/26/16 Aspirin 81 mg PO DAILY #30 chew 09/26/16 Allergies Allergy/AdvReac Type Severity Reaction Status Date / Time Penicillins Allergy Rash/Hives Verified 11/03/18 23:20 Review of Systems ROS Other: All systems not noted in ROS Statement are negative. <April Mckeon - Last Filed: 11/04/18 03:27> ROS Other: All systems not noted in ROS Statement are negative. <Lizzeth Amezquita - Last Filed: 11/04/18 21:50> ROS Statement: Those systems with pertinent positive or pertinent negative responses have been documented in the HPI. EKG Findings - EKG Comments: EKG Findings:: EKG obtained at 2324 shows normal sinus rhythm with a ventricular rate of 79, CT interval 184, QRS duration 84, QT 382, QTc 438. No evidence of ST elevation or depression. <April Mckeon - Last Filed: 11/04/18 03:27> Past Medical History Past Medical History: Coronary Artery Disease (CAD), COPD, Hyperlipidemia, Hypertension, Myocardial Infarction ([place]), Pneumonia, Renal Disease, Seizure Disorder Additional Past Medical History / Comment(s): Pt had recent bilateral pneumonia- completed ABX yesterday. 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 Past medical records indicate HTN, high cholesterol, BPH and COPD, but pt and family deny these-see pt med list. 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 Past Anesthesia/Blood Transfusion Reactions: No Reported Reaction Date of Last Stent Placement:: 2014 Past Psychological History: No Psychological Hx Reported Smoking Status: Never smoker Past Alcohol Use History: None Reported Past Drug Use History: None Reported - Past Family History Mother Additional Family Medical History / Comment(s): Mother had mental health problems. Father Family Medical History: No Reported History <April Mckeon - Last Filed: 11/04/18 03:27> General Exam Limitations: no limitations General appearance: alert, in no apparent distress, other (Social developed, well-nourished elderly male patient in no acute distress. Vital signs upon presentation are temperature 100.6F oral, pulse 76, respirations 40, blood pressure 159/74, pulse ox 96% on room air.) Eye exam: Present: normal appearance, PERRL, EOMI. Absent: scleral icterus, conjunctival injection, periorbital swelling ENT exam: Present: normal exam, normal oropharynx, mucous membranes moist Respiratory exam: Present: normal lung sounds bilaterally. Absent: respiratory distress, wheezes, rales, rhonchi, stridor Cardiovascular Exam: Present: regular rate, normal rhythm, normal heart sounds. Absent: systolic murmur, diastolic murmur, rubs, gallop, clicks GI/Abdominal exam: Present: soft, normal bowel sounds. Absent: distended, tenderness, guarding, rebound, rigid Neurological exam: Present: alert, oriented X3, CN II-XII intact Psychiatric exam: Present: normal affect, normal mood Skin exam: Present: warm, dry, intact, normal color. Absent: rash <April Mckeon M - Last Filed: 11/04/18 03:27> Course Vital Signs 11/03/18 11/03/18 11/04/18 23:02 23:30 01:21 Temperature 99 F 100.6 F H 100.5 F H Pulse Rate 76 84 Respiratory 40 H 16 Rate Blood Pressure 159/74 121/65 O2 Sat by Pulse 96 96 Oximetry 11/04/18 03:14 Temperature 99.6 F Pulse Rate 85 Respiratory 16 Rate Blood Pressure 105/64 O2 Sat by Pulse 95 Oximetry Chest Pain MDM <April Mckeon M - Last Filed: 11/04/18 03:27> <Lizzeth Amezquita - Last Filed: 11/04/18 21:50> - [facility] MDM: 83-year-old male patient presents the emergency department today for evaluation of upper abdominal pain radiating into his chest and causing shortness of breath. Physical examination was relatively unremarkable. Abdomen was soft and nontender. Chest was clear to auscultation with good air movement. Upon arrival patient did have a low-grade temperature at 100.6F. Patient was seen and evaluated here earlier and left AGAINST MEDICAL ADVICE, he was going to be admitted for unstable angina. Chest x-ray was reviewed from visit earlier today and did show possible retrocardiac infiltrate. Patient is not currently coughing. Labs were repeated and did reveal elevated lipase at 2000, mildly elevated AST, ALT, and bilirubin. Magnesium was low at 1.4. Patient was given IV fluid bolus. We did replace magnesium. Given elevated temperature and presence of pancreatitis did perform CT of the abdomen and pelvis, this showed findings consistent with acute pancreatitis and mildly distended gallbladder without wall thickening. Upon reevaluation patient is resting comfortably in bed. Did discuss findings and results. Patient will be admitted to the hospital for further evaluation. Though it is felt patient's chest pain is more related to pancreatitis we will perform serial troponins to rule out coronary cause. Keep patient NPO. RADIOLOGY: Two-view x-ray of the abdomen was obtained. Report was reviewed in its entirety. Impression by Dr. Anderson shows no acute findings. CT abdomen and pelvis was obtained. Report was reviewed in its entirety. Impression by Dr. anderson shows mild kelli-pancreatic fat stranding consistent with acute pancreatitis. No fluid collection. (April Mckeon) I personally saw and examined the patient. I reviewed and agree with the mid- level provider findings including all diagnostic interpretations and treatment plans as written unless otherwise stated. Discussed patient care with the admitting team agreed with plan for admission and further evaluation. (Lizzeth Amezquita) Disposition Decision to Admit Reason: Admit from Decision Date: 11/04/18 Decision Time: 02:08 <April Mckeon - Last Filed: 11/04/18 03:27> <Lizzeth Amezquita - Last Filed: 11/04/18 21:50> Clinical Impression: Acute pancreatitis, Chest pain Disposition: ADMITTED IP TO THIS [facility] Condition: Serious
[2018-11-04 00:15] LABS: Basophils % (A) 0 %; Eosinophils % (A) 1 %; HCT 37.7 % (39.0-53.0); HGB 12.8 gm/dL (13.0-17.5); Lymphocytes # (A) 0.9 k/uL (1.0-4.8); Lymphocytes % (A) 13 %; MCH 31.1 pg (25.0-35.0); MCV 91.5 fL (80.0-100.0); Mean Platelet Volume 7.7; Monocytes # (A) 0.2 k/uL (0-1.0); Monocytes % (A) 3 %; Neutrophils # (A) 5.7 k/uL (1.3-7.7); Neutrophils % (A) 83 %; Platelet Count 132 k/uL (150-450); RBC 4.12 m/uL (4.30-5.90); RDW 15.3 % (11.5-15.5); WBC 6.9 k/uL (3.8-10.6)
[2018-11-04 00:30] LABS: ALT 78 U/L (21-72); AST 118 U/L (17-59); Albumin 3.9 g/dL (3.5-5.0); Alkaline Phosphatase 148 U/L (38-126); Amylase 229 U/L (30-110); Anion Gap 12 mmol/L; Blood Urea Nitrogen 11 mg/dL (9-20); Calcium 8.7 mg/dL (8.4-10.2); Carbon Dioxide 23 mmol/L (22-30); Chloride 106 mmol/L (98-107); Glucose 186 mg/dL (74-99); Magnesium 1.4 mg/dL (1.6-2.3); Potassium 4.1 mmol/L (3.5-5.1); Sodium 141 mmol/L (137-145); Total Bilirubin 1.9 mg/dL (0.2-1.3); Total Protein 6.5 g/dL (6.3-8.2)
[2018-11-04 00:36] LABS: Partial Thromboplastin Time 21.3 sec (22.0-30.0); Prothrombin Time 10.5 sec (9.0-12.0)
--- NOTE | 2018-11-04 00:36 | XR ---
EXAM: XR Abdomen, 1 View CLINICAL HISTORY: ITS.REASON XR Reason: Pain pt. c/o epigastric pain. hx. of kidney stones and bi-lateral hernia repairs TECHNIQUE: Frontal supine view of the abdomen/pelvis. 2 supine images. COMPARISON: CT 04/11/16 FINDINGS: Gastrointestinal tract: Unremarkable. No dilation. Bones/joints: Degenerative changes of the lumbosacral spine and hips. Other: No abnormal calcifications visualized. IMPRESSION: No acute findings.
[2018-11-04 01:06] LABS: Lipase 2146 U/L (23-300)
[2018-11-04] MEDS ORDERED: Magnesium Replacement Protocol 1 EACH MISC MISCELLANE PRN (01:28)
[2018-11-04 01:29] LABS: Appearance,Urine Clear (Clear); Bilirubin,Urine Negative (Negative); Blood,Urine Large (Negative); Color,Urine Yellow; Glucose,Urine (UA) Negative (Negative); Hyaline Casts,Urine 3 /lpf (0-2); Ketones,Urine Negative (Negative); Leukocyte Esterase,Urine Negative (Negative); Mucus,Urine Rare /hpf; Nitrite,Urine Negative (Negative); PH, Urine 5.5 (5.0-8.0); Protein,Urine Negative (Negative); RBC,Urine >182 /hpf (0-5); Specific Gravity,Urine 1.015 (1.001-1.035); Squamous Epithelial Cell,Urine <1 /hpf (0-4); Urobilinogen,Urine <2.0 mg/dL (<2.0); WBC,Urine <1 /hpf (0-5)
[2018-11-04] MEDS ORDERED: SODIUM CHLORIDE 0.9% 1,000 ML IV ONE (01:29)
[2018-11-04] MEDS: MAGNESIUM SULFATE-D5W PMX 1 GM in DEXTROSE/WATER 1 100ML.BAG IVPB SCH ×3 (01:58→05:49)
[2018-11-04] MEDS ORDERED: NALOXONE 0.4 MG/ML 1 ML VIAL IV PRN (02:00)
[2018-11-04] MEDS ORDERED: ONDANSETRON 4 MG/2 ML VIAL IVP PRN (02:00)
--- NOTE | 2018-11-04 03:22 | CT ---
EXAM: CT Abdomen and Pelvis With Intravenous Contrast CLINICAL HISTORY: ITS.REASON CT Reason: Pain Epigastric pain. TECHNIQUE: Axial computed tomography images of the abdomen and pelvis with intravenous contrast. CTDI is 16.6 mGy and DLP is 1685.4 mGy-cm. This CT exam was performed using one or more of the following dose reduction techniques: automated exposure control, adjustment of the mA and/or kV according to patient size, and/or use of iterative reconstruction technique. Omni 300/100 ml. COMPARISON: 04/11/2016 FINDINGS: Lung bases: Mild basilar atelectasis. Heart: Coronary calcifications ABDOMEN: Liver: Unremarkable. No mass. Gallbladder and bile ducts: Mildly distended gallbladder. No obvious wall thickening. No calcified stones. No ductal dilation. Pancreas: Mild peripancreatic fat stranding consistent with acute pancreatitis. No ductal dilation. Spleen: Unremarkable. No splenomegaly. Adrenals: Unremarkable. No mass. Kidneys and ureters: Bilateral renal cysts, similar to the prior study. 2 cm left renal cyst. No hydronephrosis. Stomach and bowel: Duodenal diverticulum of the horizontal portion. Colonic diverticulosis. No obstruction. No mucosal thickening. PELVIS: Appendix: Normal appendix. Bladder: Unremarkable. No mass. Reproductive: Unremarkable as visualized. ABDOMEN and PELVIS: Intraperitoneal space: Unremarkable. No free air. No significant fluid collection. Bones/joints: No acute fracture. No dislocation. Soft tissues: Fat-containing umbilical hernia. Vasculature: Unremarkable. No abdominal aortic aneurysm. Lymph nodes: Unremarkable. No enlarged lymph nodes. IMPRESSION: Mild peripancreatic fat stranding consistent with acute pancreatitis. No fluid collection.
[2018-11-04 03:57] VITALS: BMI 36.3
[2018-11-04] MEDS: SODIUM CHLORIDE 0.9% 1,000 ML IV SCH ×2 (04:12→13:57)
[2018-11-04] MEDS ORDERED: MECLIZINE 12.5 MG TAB PO PRN (15:35)
[2018-11-04] MEDS ORDERED: LISINOPRIL 20 MG TAB PO SCH (15:45)
[2018-11-04 16:06] LABS: HCT 35.4 % (39.0-53.0); HGB 12.4 gm/dL (13.0-17.5); MCH 31.6 pg (25.0-35.0); MCV 90.5 fL (80.0-100.0); Platelet Count 100 k/uL (150-450); RBC 3.91 m/uL (4.30-5.90); RDW 15.5 % (11.5-15.5); WBC 10.6 k/uL (3.8-10.6)
[2018-11-04 16:14] LABS: ALT 75 U/L (21-72); AST 65 U/L (17-59); Albumin 3.3 g/dL (3.5-5.0); Alkaline Phosphatase 102 U/L (38-126); Amylase 220 U/L (30-110); Anion Gap 7 mmol/L; Blood Urea Nitrogen 13 mg/dL (9-20); Calcium 8.2 mg/dL (8.4-10.2); Carbon Dioxide 24 mmol/L (22-30); Chloride 108 mmol/L (98-107); Glucose 151 mg/dL (74-99); Potassium 3.9 mmol/L (3.5-5.1); Sodium 139 mmol/L (137-145); Total Bilirubin 3.7 mg/dL (0.2-1.3); Total Protein 5.7 g/dL (6.3-8.2)
[2018-11-04 16:23] LABS: Lipase 1825 U/L (23-300)
[2018-11-04] MEDS: LEVOFLOXACIN 750MG-D5W PMX 750 MG in DEXTROSE/WATER 1 150ML.BAG IVPB SCH (16:57)
[2018-11-04] MEDS: amLODIPine 10 MG TAB PO SCH (16:59)
[2018-11-04] MEDS: ATORVASTATIN 80 MG TAB PO SCH (17:00)
[2018-11-04] MEDS: ASPIRIN 81 MG PO SCH (17:00)
[2018-11-04] MEDS: CARVEDILOL 12.5 MG TAB PO SCH (17:01)
[2018-11-04] MEDS: LISINOPRIL 20 MG TAB PO SCH (17:01)
[2018-11-04] MEDS: ALLOPURINOL 300 MG TAB PO SCH (17:01)
[2018-11-04] MEDS: PHENYTOIN SODIUM EXTENDED 100 MG CAP PO SCH ×2 (17:02→21:07)
[2018-11-04] MEDS: METOPROLOL TARTRATE 25 MG TAB PO SCH (17:04)
[2018-11-04] MEDS: PANTOPRAZOLE 40 MG TABLET PO SCH (17:06)
[2018-11-04] MEDS: TAMSULOSIN 0.4 MG CAP.ER.24H PO SCH (17:06)
[2018-11-04] MEDS: APIXABAN 5 MG TAB PO SCH (21:07)
--- NOTE | 2018-11-04 22:16 | P.HPIM ---
History of Present Illness H&P Date: 11/04/18 83-year-old male patient who is admitted to the hospital to the emergency department earlier today. States symptoms started earlier in the day today. States he was seen and evaluated initially in the emergency department but did leave AGAINST MEDICAL ADVICE. Patient had a return ofsymptoms couple hours after being at home and return to the emergency department for admission. Patient is reporting an intense burning pain to his upper abdomen and radiating into his chest. States is causing him to be short of breath. Patient is also reporting shaking chills. He denies any cough or congestion. Denies any known fever. Denies any constipation, diarrhea, or urinary symptoms. Patient denies any recent rash, back pain, numbness, tingling, dizziness, weakness, hematuria, dysuria, urinary urgency, urinary frequency, headache, visual changes, or any other complaints.patient was found to have elevated lipase and CAT scan consistent with acute pancreatitis. He denies any alcohol consumption. He denies any new medications Review of Systems All systems: negative Past Medical History Past Medical History: Coronary Artery Disease (CAD), COPD, Hyperlipidemia, Hypertension, Myocardial Infarction ([place]), Pneumonia, Renal Disease, Seizure Disorder Additional Past Medical History / Comment(s): Pt had recent bilateral pneumonia- completed ABX yesterday. 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 Past medical records indicate HTN, high ch olesterol, BPH and COPD, but pt and family deny these-see pt med list. 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 Past Anesthesia/Blood Transfusion Reactions: No Reported Reaction Date of Last Stent Placement:: 2014 Past Psychological History: No Psychological Hx Reported Smoking Status: Never smoker Past Alcohol Use History: None Reported Past Drug Use History: None Reported - Past Family History Mother Additional Family Medical History / Comment(s): Mother had mental health problems. Father Family Medical History: No Reported History Medications and Allergies Home Medications Medication Instructions Recorded Confirmed Type Allopurinol [Zyloprim] 300 mg PO DAILY 09/23/16 11/03/18 History Atorvastatin [Lipitor] 80 mg PO DAILY 09/23/16 11/03/18 History Meclizine [Antivert] 12.5 mg PO TID PRN 09/23/16 11/03/18 History Omeprazole [PriLOSEC] 20 mg PO AC-BRKFST 09/23/16 11/03/18 History Tamsulosin [Flomax] 0.4 mg PO DAILY 09/23/16 11/03/18 History amLODIPine BESYLATE/BENAZEPRIL 1 cap PO DAILY 09/23/16 11/03/18 History [amLODIPine BESYLATE/BENAZEPRIL 10-20 MG] Apixaban [Eliquis] 5 mg PO BID #60 tab 09/26/16 11/03/18 Rx Aspirin 81 mg PO DAILY #30 chew 09/26/16 11/03/18 Rx Carvedilol [Coreg] 25 mg PO BID 11/21/17 11/03/18 History Clopidogrel [Plavix] 75 mg PO DAILY 11/21/17 11/03/18 History Metoprolol Tartrate [Lopressor] 25 mg PO DAILY 11/21/17 11/03/18 History Phenytoin Sodium Extended 200 mg PO TID 11/21/17 11/03/18 History [Dilantin] Allergies Allergy/AdvReac Type Severity Reaction Status Date / Time Penicillins Allergy Rash/Hives Verified 11/03/18 23:20 Physical Exam Osteopathic Statement: *. No significant issues noted on an osteopathic structural exam other than those noted in the History and Physical/Consult. Vitals: Vital Signs Temp Pulse Pulse Resp BP BP Pulse Ox 11/04/18 11:37 98 F 88 22 118/78 94 L 11/04/18 10:01 72 16 11/04/18 07:52 97.6 F 78 18 123/89 94 L 11/04/18 05:25 98.3 F 82 18 111/57 92 L 11/04/18 03:14 99.6 F 85 16 105/64 95 11/04/18 01:21 100.5 F H 84 16 121/65 96 11/03/18 23:30 100.6 F H 11/03/18 23:02 99 F 76 40 H 159/74 96 Intake and Output 11/04/18 11/04/18 11/04/18 06:59 14:59 22:59 Intake Total 360 200 Output Total 140 Balance 360 60 Intake: Intake, IV Titration 360 Amount Magnesium Sulfate-D5w Pmx 200 1 gm In Dextrose/Water 1 100ml.bag @ 100 mls/hr IVPB Q1H MARYBEL Rx#: [id number] Sodium Chloride 0.9% 1, 160 000 ml @ 80 mls/hr IV . [id number] MARYBEL Rx#:[id number] Oral 200 Output: Urine 140 Other: Voiding Method Urinal Urinal # Voids 1 Weight 115.212 kg GENERAL: This is a -83 year-old male in apparent distress at the time of examination. Pleasant and cooperative. HEENT: Head is atraumatic, normocephalic. Pupils are equal, round, and reactive to light. Sclerae anicteric. Conjunctivae are clear. Mucus membranes of the mouth are moist. Neck is supple. RESPIRATORY: Clear to auscultation. No wheezes, rales, or rhonchi. No use of accessory muscles. . No chest wall tenderness is noted on palpation or with deep breathing. CARDIOVASCULAR: Regular rate and rhythm. S1 and S2 noted. No systolic or diastolic murmur auscultated. No JVD noted. No S3 or S4 noted. GASTROINTESTINAL: positive distention noted. Abdomen soft and round. Normal active bowel sounds auscultated x 4 quadrants. positive pain in mid epigastric radiating to upper chest. INTEGUMENTARY: No cyanosis. No jaundice. No rashes noted. No cellulitis noted. EXTREMITIES: 2+ peripheral pulses. No evidence of peripheral edema. No calf tenderness noted. NEUROLOGIC: Cranial nerves II-XII intact. PSYCHIATRIC: Awake, alert, and oriented X 3. Appropriate affect. Intact judgement and insight. Results CBC & Chem 7: 11/04/18 15:54 11/04/18 15:54 Labs: Abnormal Lab Results - Last 24 Hours (Table) 11/03/18 11/03/18 11/03/18 Range/Units 23:20 23:20 23:20 RBC 4.12 L (4.30-5.90) m/uL Hgb 12.8 L (13.0-17.5) gm/dL Hct 37.7 L (39.0-53.0) % Plt Count 132 L (150-450) k/uL Lymphocytes # 0.9 L (1.0-4.8) k/uL APTT 21.3 L (22.0-30.0) sec Chloride (98-107) mmol/L Creatinine 0.54 L (0.66-1.25) mg/dL Glucose 186 H (74-99) mg/dL Calcium (8.4-10.2) mg/dL Magnesium 1.4 L (1.6-2.3) mg/dL Total Bilirubin 1.9 H (0.2-1.3) mg/dL AST 118 H (17-59) U/L ALT 78 H (21-72) U/L Alkaline Phosphatase 148 H (38-126) U/L Total Protein (6.3-8.2) g/dL Albumin (3.5-5.0) g/dL Amylase 229 H (30-110) U/L Lipase 2146 H (23-300) U/L Urine Blood (Negative) Urine RBC (0-5) /hpf Hyaline Casts (0-2) /lpf Urine Mucus (None) /hpf 11/04/18 11/04/18 11/04/18 Range/Units 01:00 15:54 15:54 RBC 3.91 L (4.30-5.90) m/uL Hgb 12.4 L (13.0-17.5) gm/dL Hct 35.4 L (39.0-53.0) % Plt Count 100 L (150-450) k/uL Lymphocytes # (1.0-4.8) k/uL APTT (22.0-30.0) sec Chloride 108 H (98-107) mmol/L Creatinine 0.57 L (0.66-1.25) mg/dL Glucose 151 H (74-99) mg/dL Calcium 8.2 L (8.4-10.2) mg/dL Magnesium (1.6-2.3) mg/dL Total Bilirubin 3.7 H (0.2-1.3) mg/dL AST 65 H (17-59) U/L ALT 75 H (21-72) U/L Alkaline Phosphatase (38-126) U/L Total Protein 5.7 L (6.3-8.2) g/dL Albumin 3.3 L (3.5-5.0) g/dL Amylase 220 H (30-110) U/L Lipase 1825 H (23-300) U/L Urine Blood Large H (Negative) Urine RBC >182 H (0-5) /hpf Hyaline Casts 3 H (0-2) /lpf Urine Mucus Rare H (None) /hpf Microbiology - Last 24 Hours (Table) 11/03/18 23:20 Blood Culture Gram Stain - Preliminary Blood 11/03/18 23:20 Blood Culture - Final Blood Thrombosis Risk Factor Assmnt - Choose All That Apply Any of the Below Risk Factors Present?: Yes Each Factor Represents 1 point: Obesity (BMI >25) Other Risk Factors: Yes Each Risk Factor Represents 3 Points: Age 75 years or older Other congenital or acquired thrombophilia - If yes, enter type in comment: No Thrombosis Risk Factor Assessment Total Risk Factor Score: 4 Thrombosis Risk Factor Assessment Level: Moderate Risk Assessment and Plan (1) Bacteremia due to Gram-negative bacteria Current Visit: Yes Status: Acute Code(s): R78.81 - BACTEREMIA SNOMED Code(s): 359906974008 (2) Acute pancreatitis Current Visit: Yes Status: Acute Code(s): K85.90 - ACUTE PANCREATITIS WITHOUT NECROSIS OR INFECTION, UNSP SNOMED Code(s): 431988909 (3) Chest pain Current Visit: Yes Status: Acute Code(s): R07.9 - CHEST PAIN, UNSPECIFIED SNOMED Code(s): 58103173 (4) HTN (hypertension) Current Visit: No Status: Acute Code(s): I10 - ESSENTIAL (PRIMARY) HYPERTENSION SNOMED Code(s): 78079773 (5) Hyperlipemia Current Visit: No Status: Acute Code(s): E78.5 - HYPERLIPIDEMIA, UNSPECIFIED SNOMED Code(s): 31795019 Plan: plan is to admit patient initially nothing byen advance diet to clears. Antibiotics for gram-negative bacteremia. Consult GI for acute pancreatitis. Time with Patient: Greater than 30
[2018-11-05] MEDS: SODIUM CHLORIDE 0.9% 1,000 ML IV SCH ×3 (03:58→21:10)
[2018-11-05] MEDS: PANTOPRAZOLE 40 MG TABLET PO SCH (07:52)
[2018-11-05] MEDS: CARVEDILOL 12.5 MG TAB PO SCH ×2 (07:52→17:13)
[2018-11-05 08:47] LABS: Magnesium 1.9 mg/dL (1.6-2.3)
[2018-11-05] MEDS: PHENYTOIN SODIUM EXTENDED 100 MG CAP PO SCH ×3 (09:09→21:21)
[2018-11-05] MEDS: TAMSULOSIN 0.4 MG CAP.ER.24H PO SCH (09:10)
[2018-11-05] MEDS: METOPROLOL TARTRATE 25 MG TAB PO SCH (09:10)
[2018-11-05] MEDS: ALLOPURINOL 300 MG TAB PO SCH (09:10)
[2018-11-05] MEDS: ATORVASTATIN 80 MG TAB PO SCH (09:10)
[2018-11-05] MEDS: ASPIRIN 81 MG PO SCH (09:10)
[2018-11-05] MEDS: APIXABAN 5 MG TAB PO SCH ×2 (09:10→20:19)
[2018-11-05] MEDS: LISINOPRIL 20 MG TAB PO SCH (09:11)
[2018-11-05] MEDS: amLODIPine 10 MG TAB PO SCH (10:10)
[2018-11-05] MEDS: ACETAMINOPHEN TAB 325 MG TAB PO PRN ×2 (14:38→20:19)
[2018-11-05] MEDS: LEVOFLOXACIN 750MG-D5W PMX 750 MG in DEXTROSE/WATER 1 150ML.BAG IVPB SCH (16:00)
--- NOTE | 2018-11-05 17:56 | P.CONS ---
History of Present Illness - Reason for Consult Consult date: 11/05/18 Pancreatitis Requesting physician: Roel Lopez - Chief Complaint Abdominal and chest pain - History of Present Illness 83-year-old male with medical history significant for coronary disease, COPD, hyperlipidemia, hypertension, prior myocardial infarction and seizure disorder who presented to the hospital with complaints of chest and abdominal pain. The patient reported burning abdominal pain in his upper abdomen with radiation into his chest. He reported associated shortness of breath due to the pain. The patient denied any fevers, change in bowel habits, constipation, diarrhea, blood per rectum or melanotic stool. He denies any alcohol consumption. He denies any new medications. Denies any similar episodes in the past. On presentation to the hospital the patient had laboratory evaluation significant for WBC 10.6, hemoglobin 12.4, bili count 100,000, INR 1, total bilirubin 3.7, alkaline phosphatase 102, AST 65, ALTs 75. Amylase found to be 220 and lipase 1825. The patient had computed tomography scan of the abdomen which was significant for pancreatitis with no gallstones or dilated ducts noted. Review of Systems REVIEW OF SYSTEMS: CONSTITUTIONAL: Denies any fevers, chills, weight change or fatigue. CARDIOVASCULAR: Denies any, palpitations high or low blood pressures, but did report abdominal pain radiating into his chest RESPIRATORY: Denies any hemoptysis or cough, but did report some shortness of breath and in association with chest pain. GENITOURINARY: No dysuria or hematuria. MUSCULOSKELETAL: No weakness reported. SKIN: Denies any new rashes or lesions, jaundice or pallor. PSYCHIATRIC: Denies any depression or anxiety. NEUROLOGY: Denies headache, denies any new focal deficits. EARS/NOSE/THROAT: No recent hearing change, congestion, nasal discharge or sore throat. EYES: No pain in eyes, discharge or change in vision. GASTROINTESTINAL: As per HPI. Past Medical History Past Medical History: Coronary Artery Disease (CAD), COPD, Hyperlipidemia, Hypertension, Myocardial Infarction (MS), Pneumonia, Renal Disease, Seizure D isorder Additional Past Medical History / Comment(s): Pt had recent bilateral pneumonia- completed ABX yesterday. 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 Past medical records indicate HTN, high cholesterol, BPH and COPD, but pt and family deny these-see pt med list. 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 Past Anesthesia/Blood Transfusion Reactions: No Reported Reaction Date of Last Stent Placement:: 2014 Past Psychological History: No Psychological Hx Reported Smoking Status: Never smoker Past Alcohol Use History: None Reported Past Drug Use History: None Reported - Past Family History Mother Additional Family Medical History / Comment(s): Mother had mental health problems. Father Family Medical History: No Reported History Medications and Allergies Home Medications Medication Instructions Recorded Confirmed Type Allopurinol [Zyloprim] 300 mg PO DAILY 09/23/16 11/03/18 History Atorvastatin [Lipitor] 80 mg PO DAILY 09/23/16 11/03/18 History Meclizine [Antivert] 12.5 mg PO TID PRN 09/23/16 11/03/18 History Omeprazole [PriLOSEC] 20 mg PO AC-BRKFST 09/23/16 11/03/18 History Tamsulosin [Flomax] 0.4 mg PO DAILY 09/23/16 11/03/18 History amLODIPine BESYLATE/BENAZEPRIL 1 cap PO DAILY 09/23/16 11/03/18 History [amLODIPine BESYLATE/BENAZEPRIL 10-20 MG] Apixaban [Eliquis] 5 mg PO BID #60 tab 09/26/16 11/03/18 Rx Aspirin 81 mg PO DAILY #30 chew 09/26/16 11/03/18 Rx Carvedilol [Coreg] 25 mg PO BID 11/21/17 11/03/18 History Clopidogrel [Plavix] 75 mg PO DAILY 11/21/17 11/03/18 History Metoprolol Tartrate [Lopressor] 25 mg PO DAILY 11/21/17 11/03/18 History Phenytoin Sodium Extended 200 mg PO TID 11/21/17 11/03/18 History [Dilantin] Allergies Allergy/AdvReac Type Severity Reaction Status Date / Time Penicillins Allergy Rash/Hives Verified 11/03/18 23:20 Physical Exam Vitals: Vital Signs Temp Pulse Pulse Resp BP Pulse Ox 11/05/18 17:10 71 142/79 11/05/18 16:04 99.4 F 11/05/18 12:45 100.1 F H 77 16 126/65 92 L 11/05/18 11:02 16 11/05/18 07:34 99.0 F 78 17 156/80 93 L 11/05/18 05:00 97.9 F 83 18 135/78 93 L 11/04/18 21:00 98.1 F 75 17 100/52 93 L Intake and Output 11/05/18 11/05/18 11/05/18 06:59 14:59 22:59 Intake Total 880 Output Total 100 Balance 880 -100 Intake: Intake, IV Titration 640 Amount Sodium Chloride 0.9% 1, 640 000 ml @ 80 mls/hr IV . [id number] [facility] Rx#:[id number] Oral 240 Output: Urine 100 Other: Voiding Method Urinal Urinal # Voids 2 On physical examination, patient appears comfortable in no apparent distress. HEAD: Normocephalic, atraumatic. EYES: No scleral icterus. No conjunctival injection. MOUTH: No lesions, tongue midline. NECK: Trachea midline, no gross abnormalities. CHEST: Clear to auscultation with no wheezing or rhonchi appreciated. HEART: S1-S2 appreciated. ABDOMEN: Soft, obese. Bowel sounds are positive. No organomegaly. No guarding or rigidity. EXTREMITIES: No pedal edema. SKIN: No rashes, no jaundice. NEUROLOGIC: Alert and oriented x3. No focal deficits. Results CBC & Chem 7: 11/04/18 15:54 11/04/18 15:54 Labs: Abnormal Lab Results - Last 24 Hours (Table) 11/05/18 Range/Units 07:38 Lipase 2046 H (23-300) U/L Microbiology - Last 24 Hours (Table) 11/03/18 23:20 Blood Culture Gram Stain - Preliminary Blood Blood Culture - Preliminary Gram Neg Bacilli 11/03/18 23:20 Blood Culture - Final Blood CT scan - abdomen: report reviewed (computed tomography scan of the abdomen which was significant for pancreatitis with no gallstones or dilated ducts noted.) Assessment and Plan (1) Acute pancreatitis Narrative/Plan: Patient presenting with abdominal and chest pain found to have a computed tomography scan consistent with uncomplicated pancreatitis with no gallbladder stones or ductal dilation noted on imaging. The patient had amylase of 220 and lipase of 1825 on presentation. Patient denies any alcohol use, possibility of gallstone-induced pancreatitis with elevation in liver enzymes on presentation. Current Visit: Yes Status: Acute Code(s): K85.90 - ACUTE PANCREATITIS WITHOUT NECROSIS OR INFECTION, UNSP SNOMED Code(s): 746789263 (2) GERD (gastroesophageal reflux disease) Current Visit: Yes Status: Acute Code(s): K21.9 - GASTRO-ESOPHAGEAL REFLUX DISEASE WITHOUT ESOPHAGITIS SNOMED Code(s): 714454205 (3) Elevated liver enzymes Narrative/Plan: Elevation in liver enzymes and predominantly a cholestatic pattern, unclear if this is secondary to a gallstone which has passed through the bile duct, a retained stone or other intrinsic liver disease. Ultrasound of the abdomen and viral hepatitis panel has been ordered for further evaluation. Current Visit: Yes Status: Acute Code(s): R74.8 - ABNORMAL LEVELS OF OTHER SERUM ENZYMES SNOMED Code(s): 872464274 Plan: Supportive care Clear liquid diet Have increased maintenance fluids to 125 mL/h Continue pain control Triglyceride level ordered Ultrasound of the abdomen ordered to rule out any ductal dilation, if suspicion for choledocholithiasis remains can order MRCP Repeat liver enzymes ordered for the morning Continue Protonix daily Thank you for allowing us to participate in the care of this patient we will continue to follow
[2018-11-06] MEDS: ACETAMINOPHEN TAB 325 MG TAB PO PRN (01:14)
[2018-11-06] MEDS: SODIUM CHLORIDE 0.9% 1,000 ML IV SCH ×3 (05:13→21:28)
[2018-11-06] MEDS: ATORVASTATIN 80 MG TAB PO SCH (07:28)
[2018-11-06] MEDS: METOPROLOL TARTRATE 25 MG TAB PO SCH (07:28)
[2018-11-06] MEDS: PHENYTOIN SODIUM EXTENDED 100 MG CAP PO SCH ×3 (07:29→21:27)
[2018-11-06] MEDS: PANTOPRAZOLE 40 MG TABLET PO SCH (07:29)
[2018-11-06] MEDS: LISINOPRIL 20 MG TAB PO SCH ×2 (07:29→21:27)
[2018-11-06] MEDS: APIXABAN 5 MG TAB PO SCH ×2 (07:29→21:27)
[2018-11-06] MEDS: CARVEDILOL 12.5 MG TAB PO SCH ×2 (07:29→17:10)
[2018-11-06] MEDS: ASPIRIN 81 MG PO SCH (07:29)
[2018-11-06] MEDS: TAMSULOSIN 0.4 MG CAP.ER.24H PO SCH (07:30)
[2018-11-06] MEDS: ALLOPURINOL 300 MG TAB PO SCH (07:30)
[2018-11-06] MEDS: amLODIPine 10 MG TAB PO SCH (07:32)
--- NOTE | 2018-11-06 08:34 | US ---
EXAMINATION TYPE: US abdomen complete DATE OF EXAM: 11/06/2018 COMPARISON: Previous study dated 08/09/2015 CLINICAL HISTORY: Pancreatitis, elevated lft's. Jaundice, pancreatitis, elevated LFT's EXAM MEASUREMENTS: Liver Length: 16.3 cm . Gallbladder Wall: 0.3 cm CBD: 0.8 cm Spleen: 14.7 cm Right Kidney: 13.0 x 6.0 x 5.8 cm Left Kidney: 11.6 x 6.3 x 5.1 cm Confused pt with large body habitus, lying LPO position, heavy breathing and coughing, Difficult ex am Pancreas: Body wnl, head and tail obscured by overlying bowel gas Liver: Upper limits of normal for size, otherwise appeared wnl Gallbladder: Slightly distended as seen on CT Evidence for sonographic Avina's sign: No CBD: wnl Spleen: Difficult to visualize, Appeared enlarged Right Kidney: No evidence of hydro, lower pole gassed out Left Kidney: Difficult to visualize due to pt's position and overlying bowel gas Upper IVC: wnl Abd Aorta: Obscured by overlying bowel gas Limited views of the pancreas are unremarkable. The liver is normal in size and homogeneous. The gallbladder is mildly prominent measuring 11 cm. The re is no evidence of cholelithiasis. The gallbladder wall measures 3 mm. The distal common hepatic du ct measures 8 mm which is not unusual in this age group. The spleen is prominent measuring 14.7 cm. Limited views of both kidneys are unremarkable. Visualized portions of aorta and IVC are unremarkable. IMPRESSION: 1. MILD SPLENOMEGALY. 2. NO EVIDENCE OF CHOLELITHIASIS.
[2018-11-06 09:41] LABS: Bilirubin, Conjugated 0.8 mg/dL (0.0-0.3); Bilirubin, Delta 1.4 mg/dL (0.0-0.2); Total Bilirubin 3.2 mg/dL (0.2-1.3); Total Protein 5.6 g/dL (6.3-8.2)
[2018-11-06] MEDS: LEVOFLOXACIN 750MG-D5W PMX 750 MG in DEXTROSE/WATER 1 150ML.BAG IVPB SCH (16:05)
[2018-11-06] MEDS ORDERED: cloNIDine HCL 0.1 MG TAB PO PRN (16:24)
[2018-11-06 19:09] LABS: Hepatitis A Antibody IgM Non-Reactive (Non-Reactive); Hepatitis B Core IgM Non-Reactive (Non-Reactive)
--- NOTE | 2018-11-06 20:32 | PN ---
PROGRESS NOTE DATE OF SERVICE: 11/06/2018 I am covering for Dr. Lopez. HISTORY OF PRESENT ILLNESS: This 83-year-old gentleman with a past medical history of multiple medical problems, was admitted with bacteremia due to gram-negative bacilli and as well as cultures grown to be Klebsiella oxytoca resistant to piperacillin and ampicillin and as well as pancreatitis. Amylase is 220 and the lipase is 1825 and bilirubin is also elevated. The patient is on IV Levaquin at this time. The Klebsiella sensitive to ciprofloxacin. PAST MEDICAL HISTORY: Reviewed. REVIEW OF SYSTEMS: CARDIOVASCULAR: No angina or palpitations. RESPIRATORY: As mentioned earlier. GASTROINTESTINAL: No nausea or vomiting. CENTRAL NERVOUS SYSTEM: No focal deficits. CURRENT MEDICATIONS: Reviewed and include: 1. Tylenol 650 q.6h p.r.n. 2. Zyloprim 300 mg. 3. Norvasc 10 mg. 4. Eliquis 5 mg p.o. b.i.d. 5. Aspirin 81 mg. 6. Lipitor 80 mg. 7. Coreg 25 mg b.i.d. 8. Levaquin 750 IV daily. 9. Zestril 10 mg daily. 10.Antivert 12.5 mg t.i.d. 11.Lopressor 25 mg daily. 12.Magnesium. 13.Narcan. 14.Zofran. 15.Protonix 40 mg daily. 16.Dilantin 200 mg p.o. t.i.d. 17.Flomax 0.4 daily. REVIEW OF SYSTEMS: ENT: No diminished vision. No diminished hearing. Cardiovascular: No angina. No palpitations. Respiratory: As mentioned earlier. GI: As mentioned earlier. Nervous system: Diffuse weakness. PHYSICAL EXAM: Patient is alert, oriented x2, mildly dysarthric. Pulse 79, blood pressure 167/70, respiration 16, temperature 99.1, pulse ox 94% on 3 L. HEENT is conjunctivae normal. Oral mucosa moist. Neck is no jugular venous distention. No carotid bruit. No lymph node enlargement. CARDIOVASCULAR SYSTEM: S1, S2 muffled. RESPIRATORY SYSTEM: Breath sounds diminished at the bases. No rhonchi. No crackles. ABDOMEN: Soft, obese, nontender. No mass palpable. Legs are no edema. No swelling. Nervous system: Diffusely weak. LAB STUDIES: WBC 11.1, hemoglobin 12.2, sodium 139, potassium 3.9, amylase and lipase noted. ASSESSMENT: 1. Klebsiella pneumoniae sepsis present on admission. 2. Acute pancreatitis. 3. Chest pain. 4. Hypertension. 5. Hyperlipidemia. 6. Anemia, normocytic. 7. Thrombocytopenia. 8. Elevated bilirubin, possibly acute hepatitis. 9. Increased amylase and lipase. 10.Some hematuria. 11.History of chronic obstructive pulmonary disease. 12.History of coronary artery disease. 13.Hypertension. 14.Hyperlipidemia. 15.History of seizure disorder. 16.History of bilateral pneumonia. 17.History of seizures. 18.History of coronary artery disease, stent. RECOMMENDATIONS AND DISCUSSION: This 83-year-old gentleman who presented with multiple complex medical issues, we will monitor the patient closely, continue the IV antibiotics. Abdomen and pelvis CAT scan was done which showed mild peripancreatic stranding suggestive of pancreatitis and abdominal ultrasound was also done which showed mild splenomegaly. No evidence of cholelithiasis at this time. I recommend to continue the current management and symptomatic treatment. Otherwise repeat chest x-ray. Continue to monitor blood pressure closely. Monitor blood pressure. Continue the antibiotics. Guarded prognosis because of multiple complex medical issues. Further medications to follow. MMODL / IJN: [id number] /
[2018-11-06] MEDS: MORPHINE SULFATE 4 MG/ML SYRINGE IV PRN (22:03)
[2018-11-06] MEDS ORDERED: TEMAZEPAM 15 MG CAP PO PRN (23:52)
[2018-11-07] MEDS: LISINOPRIL 20 MG TAB PO SCH ×2 (08:43→21:32)
[2018-11-07] MEDS: METOPROLOL TARTRATE 25 MG TAB PO SCH (08:43)
[2018-11-07] MEDS: APIXABAN 5 MG TAB PO SCH ×2 (08:43→21:32)
[2018-11-07] MEDS: ATORVASTATIN 80 MG TAB PO SCH (08:43)
[2018-11-07] MEDS: ASPIRIN 81 MG PO SCH (08:43)
[2018-11-07] MEDS: TAMSULOSIN 0.4 MG CAP.ER.24H PO SCH (08:44)
[2018-11-07] MEDS: PANTOPRAZOLE 40 MG TABLET PO SCH (08:44)
[2018-11-07] MEDS: CARVEDILOL 12.5 MG TAB PO SCH ×2 (08:44→16:31)
[2018-11-07] MEDS: PHENYTOIN SODIUM EXTENDED 100 MG CAP PO SCH ×3 (08:44→21:33)
[2018-11-07] MEDS: amLODIPine 10 MG TAB PO SCH (08:44)
[2018-11-07] MEDS: ALLOPURINOL 300 MG TAB PO SCH (08:44)
[2018-11-07 10:01] LABS: Basophils % (A) 0 %; Eosinophils # (A) 0.2 k/uL (0-0.7); Eosinophils % (A) 3 %; HCT 30.1 % (39.0-53.0); HGB 10.8 gm/dL (13.0-17.5); Lymphocytes # (A) 0.7 k/uL (1.0-4.8); Lymphocytes % (A) 12 %; MCH 32.1 pg (25.0-35.0); MCHC 35.9 g/dL (31.0-37.0); MCV 89.5 fL (80.0-100.0); Mean Platelet Volume 7.7; Monocytes # (A) 0.3 k/uL (0-1.0); Monocytes % (A) 5 %; Neutrophils # (A) 4.3 k/uL (1.3-7.7); Neutrophils % (A) 78 %; RBC 3.36 m/uL (4.30-5.90); RDW 15.5 % (11.5-15.5); WBC 5.5 k/uL (3.8-10.6)
[2018-11-07 10:55] LABS: ALT 42 U/L (21-72); AST 51 U/L (17-59); Albumin 2.7 g/dL (3.5-5.0); Alkaline Phosphatase 75 U/L (38-126); Amylase 36 U/L (30-110); Anion Gap 8 mmol/L; Blood Urea Nitrogen 10 mg/dL (9-20); Calcium 7.5 mg/dL (8.4-10.2); Carbon Dioxide 20 mmol/L (22-30); Chloride 108 mmol/L (98-107); Glucose 152 mg/dL (74-99); HDL Cholesterol 21 mg/dL (40-60); LDL Cholesterol,Calculated 9 mg/dL (0-99); Lipase 266 U/L (23-300); Magnesium 1.6 mg/dL (1.6-2.3); Potassium 3.5 mmol/L (3.5-5.1); Sodium 136 mmol/L (137-145); Total Bilirubin 2.3 mg/dL (0.2-1.3); Total Protein 5.2 g/dL (6.3-8.2); Triglycerides 98 mg/dL (<150)
[2018-11-07 11:08] LABS: Cholesterol <50 mg/dL (<200)
[2018-11-07 12:24] LABS: Platelet Count 69 k/uL (150-450)
[2018-11-07 12:25] LABS: Poikilocytosis (M) Present
[2018-11-07] MEDS: LEVOFLOXACIN 750MG-D5W PMX 750 MG in DEXTROSE/WATER 1 150ML.BAG IVPB SCH (16:31)
--- NOTE | 2018-11-07 19:53 | PN ---
PROGRESS NOTE DATE OF SERVICE: 11/07/2018 I am covering for Dr. Lopez. HISTORY OF PRESENT ILLNESS: This 83-year-old gentleman with a past medical history of multiple medical problems was admitted with Klebsiella pneumoniae sepsis. The patient also had features of pancreatitis. The patient is feeling better. The patient is requesting more food. No chest pain. No palpitations. No fever. EXAM: Alert and oriented x3. Pulse 73, blood pressure 102/70, respiration 16, temperature 97.2, pulse ox 94% on 3 L. HEENT: Conjunctivae normal. NECK: No jugular venous distention. CARDIOVASCULAR: S1, S2. RESPIRATORY: Breath sounds diminished in the bases. A few rhonchi. No crackles. ABDOMEN: Soft, nontender. LEGS: No edema. No swelling. NERVOUS SYSTEM: No focal deficits. LABS: WBC 5.9, hemoglobin 10.2, sodium 136, otherwise amylase and lipase are normal. Hepatitis panel nonreactive. ASSESSMENT: 1. Klebsiella pneumoniae sepsis, present on admission. 2. Acute pancreatitis. 3. Chest pain. 4. Hypertension. 5. Hyperlipidemia. 6. Anemia, normocytic. 7. Thrombocytopenia. 8. Elevated bilirubin, possible acute hepatitis. 9. Increased amylase, lipase. 10.Some hematuria. 11.History of chronic obstructive pulmonary disease. 12.History of coronary artery disease. 13.Hypertension. 14.Hyperlipidemia. 15.Seizure disorder. 16.History of bilateral pneumonia. 17.History of coronary artery disease, stent. 18.FULL CODE. RECOMMENDATIONS AND DISCUSSION: This 83-year-old gentleman who presented with multiple complex medical issues, we will monitor the patient closely. Continue the current management. The pancreatic amylase lipase normalized. I would recommend to advance the diet. Otherwise continue the rest of medications. Increase ambulation. Gastroenterology has been consulted. Otherwise, Dr. Lopez will follow. MMODL / IJN: [id number] /
[2018-11-07] MEDS: SODIUM CHLORIDE 0.9% 1,000 ML IV SCH (21:32)
[2018-11-07] MEDS: MORPHINE SULFATE 4 MG/ML SYRINGE IV PRN (21:34)
[2018-11-08] MEDS: MORPHINE SULFATE 4 MG/ML SYRINGE IV PRN (02:28)
[2018-11-08 06:15] VITALS: TEMP 98.2
[2018-11-08 08:25] LABS: Basophils % (A) 0 %; Eosinophils # (A) 0.1 k/uL (0-0.7); Eosinophils % (A) 1 %; HCT 32.5 % (39.0-53.0); HGB 11.5 gm/dL (13.0-17.5); Lymphocytes # (A) 0.8 k/uL (1.0-4.8); Lymphocytes % (A) 11 %; MCHC 35.5 g/dL (31.0-37.0); MCV 90.2 fL (80.0-100.0); Mean Platelet Volume 8.1; Monocytes # (A) 0.3 k/uL (0-1.0); Monocytes % (A) 5 %; Neutrophils # (A) 5.8 k/uL (1.3-7.7); Neutrophils % (A) 81 %; RDW 15.8 % (11.5-15.5); WBC 7.1 k/uL (3.8-10.6)
[2018-11-08 08:30] LABS: ALT 47 U/L (21-72); AST 54 U/L (17-59); Alkaline Phosphatase 96 U/L (38-126); Amylase 37 U/L (30-110); Anion Gap 8 mmol/L; Blood Urea Nitrogen 10 mg/dL (9-20); Calcium 7.7 mg/dL (8.4-10.2); Carbon Dioxide 23 mmol/L (22-30); Chloride 106 mmol/L (98-107); Glucose 155 mg/dL (74-99); Lipase 187 U/L (23-300); Potassium 3.3 mmol/L (3.5-5.1); Sodium 137 mmol/L (137-145); Total Bilirubin 2.3 mg/dL (0.2-1.3); Total Protein 5.7 g/dL (6.3-8.2)
[2018-11-08] MEDS: LISINOPRIL 20 MG TAB PO SCH ×2 (08:40→19:40)
[2018-11-08] MEDS: ALLOPURINOL 300 MG TAB PO SCH (08:40)
[2018-11-08] MEDS: METOPROLOL TARTRATE 25 MG TAB PO SCH (08:40)
[2018-11-08] MEDS: PANTOPRAZOLE 40 MG TABLET PO SCH (08:40)
[2018-11-08] MEDS: APIXABAN 5 MG TAB PO SCH (08:40)
[2018-11-08] MEDS: CARVEDILOL 12.5 MG TAB PO SCH ×2 (08:40→18:15)
[2018-11-08] MEDS: ASPIRIN 81 MG PO SCH (08:40)
[2018-11-08] MEDS: PHENYTOIN SODIUM EXTENDED 100 MG CAP PO SCH ×2 (08:41→15:24)
[2018-11-08] MEDS: TAMSULOSIN 0.4 MG CAP.ER.24H PO SCH (08:41)
[2018-11-08] MEDS: amLODIPine 10 MG TAB PO SCH (08:41)
[2018-11-08 08:43] LABS: Platelet Count 80 k/uL (150-450)
[2018-11-08] MEDS: ATORVASTATIN 80 MG TAB PO SCH (08:46)
[2018-11-08 11:45] VITALS: BP 158/77; PULSE 71; RESP 17
[2018-11-08] MEDS ORDERED: POTASSIUM CHLORIDE 10 MEQ in WATER FOR INJECTION 1 100ML.BAG IVPB ONE (14:30)
[2018-11-08] MEDS ORDERED: LEVOFLOXACIN 750 MG TAB PO SCH (16:00)
[2018-11-08] MEDS: SODIUM CHLORIDE 0.9% 1,000 ML IV SCH (17:46)
--- NOTE | 2018-11-08 23:34 | P.DS ---
Providers Date of admission: 11/04/18 02:55 Expected date of discharge: 11/08/18 Attending physician: Roel Lopez Primary care physician: Roel Lopez - Discharge Diagnosis(es) (1) Bacteremia due to Gram-negative bacteria Status: Acute (2) Acute pancreatitis Status: Acute (3) Chest pain Status: Acute (4) HTN (hypertension) Status: Acute (5) Hyperlipemia Status: Acute Hospital Course: This is a pleasant 83-year-old white male who was admitted for the above diagnosis. He was treated with IV antibiotics finally have a gram-negative bacteremia. He also was seen by GI for acute pancreatitis she denies any alcohol and no evidence of gallstones. His diet was advanced and he tolerated okay his pancreatic enzymes continued to decrease. His labs stabilized and he is cleared for discharge. Patient Condition at Discharge: Serious Plan - Discharge Summary Discharge Rx Participant: No New Discharge Prescriptions: New Levofloxacin [Levaquin] 500 mg PO DAILY 3 Days #3 tab Lisinopril [Zestril] 20 mg PO BID #60 tab Continue Omeprazole [PriLOSEC] 20 mg PO AC-BRKFST Meclizine [Antivert] 12.5 mg PO TID PRN PRN Reason: Vertigo Atorvastatin [Lipitor] 80 mg PO DAILY amLODIPine BESYLATE/BENAZEPRIL [amLODIPine BESYLATE/BENAZEPRIL 10-20 MG] 1 cap PO DAILY Allopurinol [Zyloprim] 300 mg PO DAILY Tamsulosin [Flomax] 0.4 mg PO DAILY Apixaban [Eliquis] 5 mg PO BID #60 tab Aspirin 81 mg PO DAILY #30 chew Phenytoin Sodium Extended [Dilantin] 200 mg PO TID Clopidogrel [Plavix] 75 mg PO DAILY Metoprolol Tartrate [Lopressor] 25 mg PO DAILY Carvedilol [Coreg] 25 mg PO BID Discharge Medication List Allopurinol [Zyloprim] 300 mg PO DAILY 09/23/16 [History] Atorvastatin [Lipitor] 80 mg PO DAILY 09/23/16 [History] Meclizine [Antivert] 12.5 mg PO TID PRN 09/23/16 [History] Omeprazole [PriLOSEC] 20 mg PO AC-BRKFST 09/23/16 [History] Tamsulosin [Flomax] 0.4 mg PO DAILY 09/23/16 [History] amLODIPine BESYLATE/BENAZEPRIL [amLODIPine BESYLATE/BENAZEPRIL 10-20 MG] 1 cap PO DAILY 09/23/16 [History] Apixaban [Eliquis] 5 mg PO BID #60 tab 09/26/16 [Rx] Aspirin 81 mg PO DAILY #30 chew 09/26/16 [Rx] Carvedilol [Coreg] 25 mg PO BID 11/21/17 [History] Clopidogrel [Plavix] 75 mg PO DAILY 11/21/17 [History] Metoprolol Tartrate [Lopressor] 25 mg PO DAILY 11/21/17 [History] Phenytoin Sodium Extended [Dilantin] 200 mg PO TID 11/21/17 [History] Levofloxacin [Levaquin] 500 mg PO DAILY 3 Days #3 tab 11/08/18 [Rx] Lisinopril [Zestril] 20 mg PO BID #60 tab 11/08/18 [Rx] Follow up Appointment(s)/Referral(s): Roel Lopez DO [Primary Care Provider] - 3 Days Patient Instructions/Handouts: Pancreatitis (DC), Gastroesophageal Reflux Disease in Children (DC) Discharge Disposition: HOME SELF-CARE
--- NOTE | 2018-11-08 23:52 | P.PN ---
Subjective Progress Note Date: 11/05/18 Pleasant 83-year-old with acute pancreatitis is currently on clear liquids and some midepigastric abdominal pain. And enzymes remain high Objective - Vital Signs Vital signs: Vital Signs Temp 98.2 F 11/08/18 11:45 Pulse 71 11/08/18 11:45 Resp 17 11/08/18 11:45 BP 158/77 11/08/18 11:45 Pulse Ox 94 L 11/08/18 11:45 Intake & Output 11/08/18 11/08/18 11/09/18 06:59 18:59 06:59 Intake Total 1260 Output Total 600 Balance 660 Intake: Intake, IV Titration 480 Amount Sodium Chloride 0.9% 1, 480 000 ml @ 60 mls/hr IV . [id number] [facility] Rx#:[id number] Oral 780 Output: Urine 600 Other: Voiding Method Urinal Urinal Incontinent Incontinent # Voids 1 5 # Bowel Movements 1 - Exam GENERAL: This is a -83 year-old male in apparent distress at the time of examination. Pleasant and cooperative. HEENT: Head is atraumatic, normocephalic. Pupils are equal, round, and reactive to light. Sclerae anicteric. Conjunctivae are clear. Mucus membranes of the mouth are moist. Neck is supple. RESPIRATORY: Clear to auscultation. No wheezes, rales, or rhonchi. No use of accessory muscles. . No chest wall tenderness is noted on palpation or with deep breathing. CARDIOVASCULAR: Regular rate and rhythm. S1 and S2 noted. No systolic or diastolic murmur auscultated. No JVD noted. No S3 or S4 noted. GASTROINTESTINAL: positive distention noted. Abdomen soft and round. Normal active bowel sounds auscultated x 4 quadrants. positive pain in mid epigastric radiating to upper chest. INTEGUMENTARY: No cyanosis. No jaundice. No rashes noted. No cellulitis noted. EXTREMITIES: 2+ peripheral pulses. No evidence of peripheral edema. No calf tenderness noted. NEUROLOGIC: Cranial nerves II-XII intact. PSYCHIATRIC: Awake, alert, and oriented X 3. Appropriate affect. Intact judgement and insight. - Labs CBC & Chem 7: 11/08/18 07:24 11/08/18 07:24 Labs: Abnormal Lab Results - Last 24 Hours (Table) 11/08/18 11/08/18 Range/Units 07:24 07:24 RBC 3.60 L (4.30-5.90) m/uL Hgb 11.5 L (13.0-17.5) gm/dL Hct 32.5 L (39.0-53.0) % RDW 15.8 H (11.5-15.5) % Plt Count 80 L (150-450) k/uL Lymphocytes # 0.8 L (1.0-4.8) k/uL Potassium 3.3 L (3.5-5.1) mmol/L Creatinine 0.48 L (0.66-1.25) mg/dL Glucose 155 H (74-99) mg/dL Calcium 7.7 L (8.4-10.2) mg/dL Total Bilirubin 2.3 H (0.2-1.3) mg/dL Total Protein 5.7 L (6.3-8.2) g/dL Albumin 3.0 L (3.5-5.0) g/dL Microbiology - Last 24 Hours (Table) 11/03/18 23:20 Blood Culture Gram Stain - Final Blood Blood Culture - Final Klebsiella pneumoniae Assessment and Plan (1) Bacteremia due to Gram-negative bacteria Status: Acute Code(s): R78.81 - BACTEREMIA SNOMED Code(s): 174893406529 (2) Acute pancreatitis Status: Acute Code(s): K85.90 - ACUTE PANCREATITIS WITHOUT NECROSIS OR INFECTION, UNSP SNOMED Code(s): 824985118 (3) Chest pain Status: Acute Code(s): R07.9 - CHEST PAIN, UNSPECIFIED SNOMED Code(s): 35750552 (4) HTN (hypertension) Status: Acute Code(s): I10 - ESSENTIAL (PRIMARY) HYPERTENSION SNOMED Code(s): 47871927 (5) Hyperlipemia Status: Acute Code(s): E78.5 - HYPERLIPIDEMIA, UNSPECIFIED SNOMED Code(s): 88712707 Plan: Await GI recommendations for acute pancreatitis. Continue IV antibiotics and hydration continue clear liquids. Patient not ready for discharge. [facility] group on-call this weekend
--- NOTE | 2018-11-09 14:47 | CDI ---
Documentation Clarification Form Date: 11/09/18 From: Karla Saunders Phone: If you have a question regarding this query, please contact Tamela Menard at [phone] between 8am and 5pm Admit Date: 11/04/2018 2:55:00 AM Patient Name: Javier Shah Visit Number: [id number] Discharge Date: 11/08/2018 7:51:00 PM ATTENTION: The Clinical Documentation Specialists (CDI) and [facility] Coding Staff appreciate your assistance in clarifying documentation. Please respond to the clarification below the line at the bottom and electronically sign. The CDI & [facility] Coding staff will review the response and follow-up if needed. Please note: Queries are made part of the Legal Health Record. If you have any questions, please contact the author of this message via ITS. Dr. Roel Lopez The patient presented with acute pancreatitis. The patient also grew Klebsiella pneumoniae in his blood. History/Risk Factors: Acute pancreatitis. Patient finished antibiotics for pneumonia the day before admission. The patient also has a history of hypertension, COPD and CAD. Clinical Indicators: Positive blood culture, WBC: 6.9 Lactic acid: 1.7 Blood cultures: Klebsiella pneumoniae Vitals signs on admission: T. 99 on admission then up to 100.6 30 minutes later, P. 76, R. 40, BP 159/74 Treatment: Antibiotics: IV Levaquin IV Bolus: 1 liter sodium chloride In your professional opinion, please clarify if these findings signify one of the following conditions, whether the condition is POA, and cause, if known: Sepsis ruled out SIRS, without underlying infectious process Sepsis Severe Sepsis Septic Shock Other, please specify Unable to determine Link or clarify if there is associated (due to/with): Organ failure Shock MTDD
== END 2018-11-08 19:51 | disposition home or self-care (01) | DRG 439 ==
LOC: EC 23:01 → 3NMEDONC 11-04 02:55
PROVIDERS: ADMIT Family Medicine; ATTEND Family Medicine
DX: K85.90 Acute pancreatitis without necrosis or infection, unspecified (principal); I25.110 Atherosclerotic heart disease of native coronary artery with unstable angina pectoris; B17.9 Acute viral hepatitis, unspecified; R17 Unspecified jaundice; R78.81 Bacteremia; D69.6 Thrombocytopenia, unspecified; J44.9 Chronic obstructive pulmonary disease, unspecified; R31.9 Hematuria, unspecified; D64.9 Anemia, unspecified; G40.909 Epilepsy, unspecified, not intractable, without status epilepticus; E78.00 Pure hypercholesterolemia, unspecified; E78.5 Hyperlipidemia, unspecified; I10 Essential (primary) hypertension; I25.2 Old myocardial infarction; K21.9 Gastro-esophageal reflux disease without esophagitis; K82.8 Other specified diseases of gallbladder; N40.0 Benign prostatic hyperplasia without lower urinary tract symptoms; K40.90 Unilateral inguinal hernia, without obstruction or gangrene, not specified as recurrent; R74.0 Nonspecific elevation of levels of transaminase and lactic acid dehydrogenase [LDH]; R32 Unspecified urinary incontinence; H91.93 Unspecified hearing loss, bilateral; R07.9 Chest pain, unspecified; Z79.01 Long term (current) use of anticoagulants; Z79.02 Long term (current) use of antithrombotics/antiplatelets; Z79.82 Long term (current) use of aspirin; Z79.899 Other long term (current) drug therapy; Z88.0 Allergy status to penicillin; Z95.5 Presence of coronary angioplasty implant and graft; Z87.442 Personal history of urinary calculi; Z86.011 Personal history of benign neoplasm of the brain; Z87.01 Personal history of pneumonia (recurrent)
CPT/HCPCS: 36415; 71046; 74018; 74177; 76700; 80053; 80061; 80074; 80076; 81001; 82150; 83605; 83690; 83735; 84478; 84484; 85025; 85027; 85610; 85730; 87040; 87077; 87086; 87186; 87502; 93005; 96361; 96365; 96375; 99285

== ENCOUNTER 2019-04-27 16:37 | Emergency (ER) | payer MEDICARE, BC ==
[2019-04-27] MEDS ORDERED: SODIUM CHLORIDE 0.9% 1,000 ML IV STA (17:23)
[2019-04-27] MEDS ORDERED: SODIUM CHLORIDE 0.9% 500 ML 500 ML IV STA (17:23)
--- NOTE | 2019-04-27 17:44 | ED ---
SOB HPI - General Chief Complaint: Shortness of Breath Stated Complaint: poss pneumonia Time Seen by Provider: 04/27/19 17:22 Source: patient, family, RN notes reviewed, old records reviewed Mode of arrival: wheelchair Limitations: no limitations - History of Present Illness Initial Comments: This is a 84-year-old male the ER for evaluation. Patient is a few complaints today. Patient complaining of cough, inability to catch his breath, shortness of breath. Patient states he thinks he may have pneumonia. Cough is productive. Symptoms times about a day. Today and half. Started yesterday felt to 2 days ago. Patient denies any chest pain. He does have pain when he coughs burning when he coughs and abdominal pain when he coughs. No recent t ravel history or sick contacts. Patient similar event a few months ago. Patient states he was eating yesterday he felt like something may have gone down the wrong tube. That certainly symptoms of cough and difficulty breathing . MD Complaint: shortness of breath, cough, chest pain (With breathing) -: days(s) Severity: moderate Severity scale (1-10): 4 Quality: sharp Consistency: intermittent Improves With: nothing Worsens With: coughing Known History Of: COPD, congestive heart failure Context: recent URI Associated Symptoms: chest pain, pain with inspiration, cough, sputum production - Related Data Home Medications Medication Instructions Recorded Confirmed Allopurinol [Zyloprim] 300 mg PO DAILY 09/23/16 04/27/19 Atorvastatin [Lipitor] 80 mg PO DAILY 09/23/16 04/27/19 Meclizine [Antivert] 12.5 mg PO TID PRN 09/23/16 04/27/19 Omeprazole [PriLOSEC] 20 mg PO DAILY 09/23/16 04/27/19 Tamsulosin [Flomax] 0.4 mg PO DAILY 09/23/16 04/27/19 amLODIPine BESYLATE/BENAZEPRIL 1 cap PO DAILY 09/23/16 04/27/19 [amLODIPine BESYLATE/BENAZEPRIL 10-20 MG] Carvedilol [Coreg] 25 mg PO BID 11/21/17 04/27/19 Clopidogrel [Plavix] 75 mg PO DAILY 11/21/17 04/27/19 Metoprolol Tartrate [Lopressor] 25 mg PO DAILY 11/21/17 04/27/19 Phenytoin Sodium Extended 200 mg PO TID 11/21/17 04/27/19 [Dilantin] Previous Rx's Medication Instructions Recorded Apixaban [Eliquis] 5 mg PO BID #60 tab 09/26/16 Aspirin 81 mg PO DAILY #30 chew 09/26/16 Lisinopril [Zestril] 20 mg PO BID #60 tab 11/08/18 Azithromycin [Zithromax Z-pack] 0 mg PO DIRECTED #1 pack 04/27/19 Allergies Allergy/AdvReac Type Severity Reaction Status Date / Time Penicillins Allergy Rash/Hives Verified 04/27/19 17:58 Review of Systems ROS Statement: Those systems with pertinent positive or pertinent negative responses have been documented in the HPI. ROS Other: All systems not noted in ROS Statement are negative. Past Medical History Past Medical History: Coronary Artery Disease (CAD), COPD, Hyperlipidemia, Hyp ertension, Myocardial Infarction ([place]), Pneumonia, Renal Disease, Seizure Disorder Additional Past Medical History / Comment(s): Pt had recent bilateral pneumonia- completed ABX yesterday. 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 Past medical records indicate HTN, high cholesterol, BPH and COPD, but pt and family deny these-see pt med list. 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 Past Anesthesia/Blood Transfusion Reactions: No Reported Reaction Date of Last Stent Placement:: 2014 Past Psychological History: No Psychological Hx Reported Smoking Status: Never smoker Past Alcohol Use History: None Reported Past Drug Use History: None Reported - Past Family History Mother Additional Family Medical History / Comment(s): Mother had mental health proble ms. Father Family Medical History: No Reported History General Exam Limitations: no limitations General appearance: alert, in no apparent distress Head exam: Present: atraumatic, normocephalic, normal inspection Eye exam: Present: normal appearance, PERRL, EOMI. Absent: scleral icterus, conjunctival injection, periorbital swelling ENT exam: Present: normal exam, mucous membranes moist Neck exam: Present: normal inspection. Absent: tenderness, meningismus, lymphadenopathy Respiratory exam: Present: normal lung sounds bilaterally. Absent: respiratory distress, wheezes, rales, rhonchi, stridor Cardiovascular Exam: Present: regular rate, normal rhythm, normal heart sounds. Absent: systolic murmur, diastolic murmur, rubs, gallop, clicks GI/Abdominal exam: Present: soft, normal bowel sounds. Absent: distended, tenderness, guarding, rebound, rigid Extremities exam: Present: normal inspection, full ROM, normal capillary refill. Absent: tenderness, pedal edema, joint swelling, calf tenderness Back exam: Present: normal inspection Neurological exam: Present: alert, oriented X3, CN II-XII intact Psychiatric exam: Present: normal affect, normal mood Skin exam: Present: warm, dry, intact, normal color. Absent: rash Course Vital Signs 04/27/19 04/27/19 04/27/19 17:04 18:17 18:30 Temperature 97.9 F Pulse Rate 64 61 58 L Respiratory 20 16 18 Rate Blood Pressure 158/81 165/97 165/97 O2 Sat by Pulse 97 97 95 Oximetry - Reevaluation(s) Reevaluation #1: 04/27/19 17:43 Medical record reviewed Reevaluation #2: 04/27/19 19:51 Patient's in no distress feels well states his cough improved no pain. Reevaluation #3: 04/27/19 19:51 Patient asking to be discharged home Medical Decision Making - Medical Decision Making 81 female the ER for evaluation of cough mom possible aspiration, patient given antibiotics can be discharged home chest x-ray shows mild bronchitis - Lab Data Result diagrams: 04/27/19 18:20 04/27/19 18:20 Lab Results 04/27/19 04/27/19 04/27/19 Range/Units 18:20 18:20 18:20 WBC 6.8 (3.8-10.6) k/uL RBC 4.21 L (4.30-5.90) m/uL Hgb 13.4 (13.0-17.5) gm/dL Hct 38.5 L (39.0-53.0) % MCV 91.4 (80.0-100.0) fL MCH 31.7 (25.0-35.0) pg MCHC 34.7 (31.0-37.0) g/dL RDW 14.4 (11.5-15.5) % Plt Count 129 L (150-450) k/uL Neutrophils % 67 % Lymphocytes % 22 % Monocytes % 6 % Eosinophils % 2 % Basophils % 1 % Neutrophils # 4.6 (1.3-7.7) k/uL Lymphocytes # 1.5 (1.0-4.8) k/uL Monocytes # 0.4 (0-1.0) k/uL Eosinophils # 0.1 (0-0.7) k/uL Basophils # 0.1 (0-0.2) k/uL PT (9.0-12.0) sec INR (<1.2) APTT (22.0-30.0) sec Sodium 140 (137-145) mmol/L Potassium 3.8 (3.5-5.1) mmol/L Chloride 103 (98-107) mmol/L Carbon Dioxide 27 (22-30) mmol/L Anion Gap 10 mmol/L BUN 9 (9-20) mg/dL Creatinine 0.52 L (0.66-1.25) mg/dL Est GFR (CKD-EPI)AfAm >90 (>60 ml/min/1.73 sqM) Est GFR (CKD-EPI)NonAf >90 (>60 ml/min/1.73 sqM) Glucose 97 (74-99) mg/dL Calcium 8.8 (8.4-10.2) mg/dL Magnesium 1.9 (1.6-2.3) mg/dL Total Bilirubin 0.4 (0.2-1.3) mg/dL AST 41 (17-59) U/L ALT 51 (21-72) U/L Alkaline Phosphatase 144 H (38-126) U/L Troponin I (0.000-0.034) ng/mL NT-Pro-B Natriuret Pep 456 pg/mL Total Protein 6.9 (6.3-8.2) g/dL Albumin 4.1 (3.5-5.0) g/dL 04/27/19 04/27/19 Range/Units 18:20 18:20 WBC (3.8-10.6) k/uL RBC (4.30-5.90) m/uL Hgb (13.0-17.5) gm/dL Hct (39.0-53.0) % MCV (80.0-100.0) fL MCH (25.0-35.0) pg MCHC (31.0-37.0) g/dL RDW (11.5-15.5) % Plt Count (150-450) k/uL Neutrophils % % Lymphocytes % % Monocytes % % Eosinophils % % Basophils % % Neutrophils # (1.3-7.7) k/uL Lymphocytes # (1.0-4.8) k/uL Monocytes # (0-1.0) k/uL Eosinophils # (0-0.7) k/uL Basophils # (0-0.2) k/uL PT 10.5 (9.0-12.0) sec INR 1.0 (<1.2) APTT 27.0 (22.0-30.0) sec Sodium (137-145) mmol/L Potassium (3.5-5.1) mmol/L Chloride (98-107) mmol/L Carbon Dioxide (22-30) mmol/L Anion Gap mmol/L BUN (9-20) mg/dL Creatinine (0.66-1.25) mg/dL Est GFR (CKD-EPI)AfAm (>60 ml/min/1.73 sqM) Est GFR (CKD-EPI)NonAf (>60 ml/min/1.73 sqM) Glucose (74-99) mg/dL Calcium (8.4-10.2) mg/dL Magnesium (1.6-2.3) mg/dL Total Bilirubin (0.2-1.3) mg/dL AST (17-59) U/L ALT (21-72) U/L Alkaline Phosphatase (38-126) U/L Troponin I <0.012 (0.000-0.034) ng/mL NT-Pro-B Natriuret Pep pg/mL Total Protein (6.3-8.2) g/dL Albumin (3.5-5.0) g/dL - EKG Data -: EKG Interpreted by Me (Chest x-ray sinus bradycardia rate of 59, [place] 180, QRS 92, QTc 439) - Radiology Data Radiology results: report reviewed (CXR shows peribronchial cuffing for reactive airway disease), image reviewed Disposition Clinical Impression: Acute bronchitis Disposition: HOME SELF-CARE Condition: Good Instructions (If sedation given, give patient instructions): Acute Bronchitis (ED) Prescriptions: Azithromycin [Zithromax Z-pack] 0 mg PO DIRECTED #1 pack Is patient prescribed a controlled substance at d/c from ED?: No Referrals: Roel Lopez DO [Primary Care Provider] - 1-2 days
--- NOTE | 2019-04-27 18:08 | XR ---
EXAMINATION TYPE: XR chest 2V DATE OF EXAM: 04/27/2019 COMPARISON: 11/03/2018 HISTORY: Shortness of breath TECHNIQUE: Frontal and lateral views of the chest are obtained. FINDINGS: There is no focal air space opacity, pleural effusion, or pneumothorax seen. [place] of vessels is seen overlying the lower thoracic spine and its anterior margin. Surrounding these vessel s there is mild peribronchial cuffing. The cardiac silhouette size is within normal limits. The oss eous structures are intact. Mild degenerative changes of the spine and diffuse osseous demineralizati on. IMPRESSION: Mild peribronchial cuffing on the lateral view. Consider reactive or infectious airway d isease. No focal consolidation.
[2019-04-27 18:46] LABS: Basophils # (A) 0.1 k/uL (0-0.2); Basophils % (A) 1 %; Eosinophils # (A) 0.1 k/uL (0-0.7); Eosinophils % (A) 2 %; HCT 38.5 % (39.0-53.0); HGB 13.4 gm/dL (13.0-17.5); Lymphocytes # (A) 1.5 k/uL (1.0-4.8); Lymphocytes % (A) 22 %; MCH 31.7 pg (25.0-35.0); MCHC 34.7 g/dL (31.0-37.0); MCV 91.4 fL (80.0-100.0); Mean Platelet Volume 6.9; Monocytes # (A) 0.4 k/uL (0-1.0); Monocytes % (A) 6 %; Neutrophils # (A) 4.6 k/uL (1.3-7.7); Neutrophils % (A) 67 %; Platelet Count 129 k/uL (150-450); RBC 4.21 m/uL (4.30-5.90); RDW 14.4 % (11.5-15.5); WBC 6.8 k/uL (3.8-10.6)
[2019-04-27 18:55] VITALS: RESP 18
[2019-04-27 18:55] LABS: Prothrombin Time 10.5 sec (9.0-12.0)
[2019-04-27 19:03] LABS: ALT 51 U/L (21-72); AST 41 U/L (17-59); African American GFR (CKD) >90 (>60 ml/min/1.73 sqM); Albumin 4.1 g/dL (3.5-5.0); Alkaline Phosphatase 144 U/L (38-126); Anion Gap 10 mmol/L; Blood Urea Nitrogen 9 mg/dL (9-20); Calcium 8.8 mg/dL (8.4-10.2); Carbon Dioxide 27 mmol/L (22-30); Chloride 103 mmol/L (98-107); Glucose 97 mg/dL (74-99); Magnesium 1.9 mg/dL (1.6-2.3); Potassium 3.8 mmol/L (3.5-5.1); Sodium 140 mmol/L (137-145); Total Bilirubin 0.4 mg/dL (0.2-1.3); Total Protein 6.9 g/dL (6.3-8.2)
[2019-04-27] MEDS ORDERED: AZITHROMYCIN 500 MG TAB PO STA (19:50)
[2019-04-27] MEDS ORDERED: DEXAMETHASONE SOD PHOSPHATE 10 MG/ML 1 ML VIAL IV STA (19:50)
[2019-04-27 20:28] VITALS: BP 126/87; PULSE 67; TEMP 97
== END 2019-04-27 20:28 | disposition home or self-care (01) ==
LOC: EC 16:37
DX: J20.9 Acute bronchitis, unspecified (principal); J44.0 Chronic obstructive pulmonary disease with (acute) lower respiratory infection; I25.10 Atherosclerotic heart disease of native coronary artery without angina pectoris; E78.5 Hyperlipidemia, unspecified; I11.0 Hypertensive heart disease with heart failure; I50.9 Heart failure, unspecified; I25.2 Old myocardial infarction; G40.909 Epilepsy, unspecified, not intractable, without status epilepticus; N40.0 Benign prostatic hyperplasia without lower urinary tract symptoms; Z95.5 Presence of coronary angioplasty implant and graft; Z87.01 Personal history of pneumonia (recurrent); Z79.02 Long term (current) use of antithrombotics/antiplatelets; Z79.899 Other long term (current) drug therapy; Z88.0 Allergy status to penicillin
CPT/HCPCS: 36415; 93005; 83880; 80053; 83735; 84484; 85025; 85610; 85730; 87040; 71046; 99285; 96374; 96361 ×2; J1100

== ENCOUNTER 2019-07-08 23:48 | Emergency (ER) | payer MEDICARE, BC ==
--- NOTE | 2019-07-08 23:55 | ED ---
General Adult HPI - General Stated complaint: abd pain Time Seen by Provider: 07/08/19 23:54 - History of Present Illness Initial comments: Javier is an 84-year-old woman who presents to the emergency department today via EMS for evaluation of abdominal pain. Patient reports he is having burning epigastric pain similar to GERD. Patient reports he took a Zantac but the pain became worse over the course of approximately half an hour at which time he d ecided calling EMS. Patient reports that upon EMS arrival he had complete resolution of his pain and was feeling much better. Pain was not associated with any nausea, vomiting, chest pain palpitations shortness of breath or diaphoresis. She reports he experiences chest pain in the past with acid reflux. Patient believes he has a hiatal hernia. - Related Data Home Medications Medication Instructions Recorded Confirmed Allopurinol [Zyloprim] 300 mg PO DAILY 09/23/16 04/27/19 Atorvastatin [Lipitor] 80 mg PO DAILY 09/23/16 04/27/19 Meclizine [Antivert] 12.5 mg PO TID PRN 09/23/16 04/27/19 Omeprazole [PriLOSEC] 20 mg PO DAILY 09/23/16 04/27/19 Tamsulosin [Flomax] 0.4 mg PO DAILY 09/23/16 04/27/19 amLODIPine BESYLATE/BENAZEPRIL 1 cap PO DAILY 09/23/16 04/27/19 [amLODIPine BESYLATE/BENAZEPRIL 10-20 MG] Carvedilol [Coreg] 25 mg PO BID 11/21/17 04/27/19 Clopidogrel [Plavix] 75 mg PO DAILY 11/21/17 04/27/19 Metoprolol Tartrate [Lopressor] 25 mg PO DAILY 11/21/17 04/27/19 Phenytoin Sodium Extended 200 mg PO TID 11/21/17 04/27/19 [Dilantin] Previous Rx's Medication Instructions Recorded Apixaban [Eliquis] 5 mg PO BID #60 tab 09/26/16 Aspirin 81 mg PO DAILY #30 chew 09/26/16 Lisinopril [Zestril] 20 mg PO BID #60 tab 11/08/18 Azithromycin [Zithromax Z-pack] 0 mg PO DIRECTED #1 pack 04/27/19 Allergies Allergy/AdvReac Type Severity Reaction Status Date / Time Penicillins Allergy Rash/Hives Verified 07/08/19 23:59 Review of Systems ROS Statement: Those systems with pertinent positive or pertinent negative responses have been documented in the HPI. ROS Other: All systems not noted in ROS Statement are negative. Past Medical History Past Medical History: Coronary Artery Disease (CAD), COPD, Hyperlipidemia, Hypertension, Myocardial Infarction ([place]), Pneumonia, Renal Disease, Seizure Disorder Additional Past Medical History / Comment(s): Pt had recent bilateral pneumonia- completed ABX yesterday. 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 Past medical records indicate HTN, high cholesterol, BPH and COPD, but pt and family deny these-see pt med list. 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 Past Anesthesia/Blood Transfusion Reactions: No Reported Reaction Date of Last Stent Placement:: 2014 Past Psychological History: No Psychological Hx Reported Smoking Status: Never smoker Past Alcohol Use History: None Reported Past Drug Use History: None Reported - Past Family History Mother Additional Family Medical History / Comment(s): Mother had mental health problems. Father Family Medical History: No Reported History General Exam - General Exam Comments Initial Comments: Physical Exam GENERAL: Patient is well-developed and well-nourished. Patient is nontoxic and well-hydrated and is in no distress. HENT: Normocephalic, Atraumatic. EYES: PERRL, EOMI PULMONARY: Unlabored respirations. No audible rales rhonchi or wheezing was noted. CARDIOVASCULAR: There is a regular rate and rhythm without any murmurs gallops or rubs. ABDOMEN: Soft with normal bowel sounds. Mild tenderness to deep palpation of epigastrum No peritoneal signs SKIN: Skin is clear with no lesions or rashes and otherwise unremarkable. : Deferred NEUROLOGIC: Patient is alert and oriented x3. Moving all extremities spontaneously MUSCULOSKELETAL: Normal extremities with adequate strength and full range of motion. No lower extremity swelling or edema. No calf tenderness. PSYCHIATRIC: Normal psychiatric evaluation. Course Vital Signs 07/08/19 07/09/19 23:49 01:14 Temperature 98.7 F 97.7 F Pulse Rate 58 L 89 Respiratory 20 18 Rate Blood Pressure 169/89 154/79 O2 Sat by Pulse 98 98 Oximetry EKG Findings - EKG Comments: EKG Findings:: EKG was obtained due to complaining of epigastric discomfort an elderly gentleman. EKG was obtained at 12:11 AM, rate is 58 rhythm is narrow complex regular rhythm with a P-wave before each QRS consistent with sinus bradycardia. There is a normal axis, there are normal intervals, [place] 202, QRS 88, QTC 449. There are no acute ST elevations or depressions there is no evidence of acute ischemia or infarction. Medical Decision Making - Medical Decision Making Patient was seen and evaluated history is obtained from the patient, upon arrival emergency department patient is asymptomatic and adamantly declining any IV access attempts or blood draws Patient did consent to EKG and x-rays EKG is nonischemic Series with no acute findings Patient remains awake alert oriented hemodynamically stable in no acute distress with no complaints. Patient's symptoms resolved prior to arrival. Again I offered to draw labs however patient declined. Patient eager for discharge home. Patient's uncomfortable plan for discharge home, outpatient follow-up. Close return parameters were discussed. Patient was encouraged to again call 911 if he develops any epigastric discomfort nausea vomiting shortness of breath or any new or concerning symptoms. Patient expressed understanding patient was discharged home in stable condition. Disposition Clinical Impression: Epigastric abdominal pain Disposition: HOME SELF-CARE Condition: Stable Instructions (If sedation given, give patient instructions): Abdominal Pain (ED) Additional Instructions: Eat multiple small meals, avoid large meals, spicy or greasy foods Continue to take your acid reflux medications Stay hydrated Return to the emergency department if he develops any chest pain palpitations shortness of breath or any new or concerning symptoms Follow-up with your regular doctor next week for reevaluation even though you are feeling better. Is patient prescribed a controlled substance at d/c from ED?: No Referrals: Roel Lopez DO [Primary Care Provider] - 1-2 days
--- NOTE | 2019-07-09 00:46 | XR ---
EXAMINATION TYPE: XR abdomen acute w cxr DATE OF EXAM: 07/09/2019 COMPARISON: 11/04/2018 HISTORY: Epigastric pain TECHNIQUE: 4 views. FINDINGS: There is coarsening of the interstitial markings. Heart size is fairly normal. Lungs are clear of con solidation. There is no sign of intestinal obstruction or pneumoperitoneum. Fecal pattern is normal. There is no sign of a mass. There are no pathologic calcifications over the kidneys. IMPRESSION: Nonacute abdomen. Mild pulmonary fibrosis.
[2019-07-09 01:15] VITALS: BP 154/79; PULSE 89; RESP 18; TEMP 97.7
== END 2019-07-09 01:15 | disposition home or self-care (01) ==
LOC: EC 23:48
DX: R10.13 Epigastric pain (principal); I25.10 Atherosclerotic heart disease of native coronary artery without angina pectoris; E78.5 Hyperlipidemia, unspecified; I10 Essential (primary) hypertension; I25.2 Old myocardial infarction; K21.9 Gastro-esophageal reflux disease without esophagitis; G40.909 Epilepsy, unspecified, not intractable, without status epilepticus; H91.93 Unspecified hearing loss, bilateral; N40.0 Benign prostatic hyperplasia without lower urinary tract symptoms; Z88.0 Allergy status to penicillin; Z79.02 Long term (current) use of antithrombotics/antiplatelets; Z79.899 Other long term (current) drug therapy; Z87.01 Personal history of pneumonia (recurrent); Z95.5 Presence of coronary angioplasty implant and graft; Z53.20 Procedure and treatment not carried out because of patient's decision for unspecified reasons
CPT/HCPCS: 74022; 93005; 99284

== ENCOUNTER 2019-07-09 11:51 | Inpatient (IN) | payer MEDICARE, BC ==
--- NOTE | 2019-07-09 12:38 | ED ---
Chest Pain HPI - General Chief Complaint: Chest Pain Stated Complaint: chest pain; difficulty breathing Time Seen by Provider: 07/09/19 12:27 Source: patient, RN notes reviewed, old records reviewed Mode of arrival: ambulatory Limitations: no limitations - History of Present Illness MD Complaint: chest pain -: days(s) Onset: during rest, during exertion, awoke with symptoms Pain Location: substernal, right chest Pain Radiation: none Severity: moderate Severity scale (1-10): 4 Quality: tightness, aching Consistency: constant Improves With: nothing Worsens With: nothing Anginal Symptoms: nausea, dyspnea Other Symptoms: cough Treatments Prior to Arrival: none - Related Data Home Medications Medication Instructions Recorded Confirmed Allopurinol [Zyloprim] 300 mg PO DAILY 09/23/16 04/27/19 Atorvastatin [Lipitor] 80 mg PO DAILY 09/23/16 04/27/19 Meclizine [Antivert] 12.5 mg PO TID PRN 09/23/16 04/27/19 Omeprazole [PriLOSEC] 20 mg PO DAILY 09/23/16 04/27/19 Tamsulosin [Flomax] 0.4 mg PO DAILY 09/23/16 04/27/19 amLODIPine BESYLATE/BENAZEPRIL 1 cap PO DAILY 09/23/16 04/27/19 [amLODIPine BESYLATE/BENAZEPRIL 10-20 MG] Carvedilol [Coreg] 25 mg PO BID 11/21/17 04/27/19 Clopidogrel [Plavix] 75 mg PO DAILY 11/21/17 04/27/19 Metoprolol Tartrate [Lopressor] 25 mg PO DAILY 11/21/17 04/27/19 Phenytoin Sodium Extended 200 mg PO TID 11/21/17 04/27/19 [Dilantin] Previous Rx's Medication Instructions Recorded Apixaban [Eliquis] 5 mg PO BID #60 tab 09/26/16 Aspirin 81 mg PO DAILY #30 chew 09/26/16 Lisinopril [Zestril] 20 mg PO BID #60 tab 11/08/18 Azithromycin [Zithromax Z-pack] 0 mg PO DIRECTED #1 pack 04/27/19 Allergies Allergy/AdvReac Type Severity Reaction Status Date / Time Penicillins Allergy Rash/Hives Verified 07/09/19 11:53 Review of Systems ROS Statement: Those systems with pertinent positive or pertinent negative responses have been documented in the HPI. ROS Other: All systems not noted in ROS Statement are negative. EKG Findings - EKG Comments: EKG Findings:: EKG shows sinus rhythm of 60. SD 208, QRS 94, QTC 449 Past Medical History Past Medical History: Coronary Artery Disease (CAD), COPD, Hyperlipidemia, Hypertension, Myocardial Infarction ([place]), Pneumonia, Renal Disease, Seizure Disorder Additional Past Medical History / Comment(s): Pt had recent bilateral pneumonia- completed ABX yesterday. 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 Past medical records indicate HTN, high cholesterol, BPH and COPD, but pt and family deny these-see pt med list. 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 Past Anesthesia/Blood Transfusion Reactions: No Reported Reaction Date of Last Stent Placement:: 2014 Past Psychological History: No Psychological Hx Reported Smoking Status: Never smoker Past Alcohol Use History: None Reported Past Drug Use History: None Reported - Past Family History Mother Additional Family Medical History / Comment(s): Mother had mental health problems. Father Family Medical History: No Reported History General Exam Limitations: no limitations General appearance: alert, in no apparent distress Head exam: Present: atraumatic, normocephalic, normal inspection Eye exam: Present: normal appearance, PERRL, EOMI. Absent: scleral icterus, conjunctival injection, periorbital swelling ENT exam: Present: normal exam, mucous membranes moist Neck exam: Present: normal inspection. Absent: tenderness, meningismus, lymphadenopathy Respiratory exam: Present: normal lung sounds bilaterally. Absent: respiratory distress, wheezes, rales, rhonchi, stridor Cardiovascular Exam: Present: regular rate, normal rhythm, normal heart sounds. Absent: systolic murmur, diastolic murmur, rubs, gallop, clicks GI/Abdominal exam: Present: soft, normal bowel sounds. Absent: distended, tenderness, guarding, rebound, rigid Extremities exam: Present: normal inspection, full ROM, normal capillary refill. Absent: tenderness, pedal edema, joint swelling, calf tenderness Back exam: Present: normal inspection Neurological exam: Present: alert, oriented X3, CN II-XII intact Psychiatric exam: Present: normal affect, normal mood Skin exam: Present: warm, dry, intact, normal color. Absent: rash Course Vital Signs 07/09/19 11:53 Temperature 98.4 F Pulse Rate 67 Respiratory 18 Rate Blood Pressure 203/108 O2 Sat by Pulse 100 Oximetry - Reevaluation(s) Reevaluation #1: 07/09/19 14:41 Medical records reviewed Reevaluation #2: 07/09/19 14:41 Since chest pain is persistent but is now improved - Consultations Consultation #1: Spoke with Dr. Lopez who is agreeable for admission Chest Pain MDM - MDM 84 Male presents with chest pain today. Chest pain and abdominal pain. Has significant pain with non-ST elevated DC. Patient will be admitted for cardiology consult IV hydration and pain control Critical Care Time Critical Care Time: Yes Total Critical Care Time: 31 Disposition Clinical Impression: HTN (hypertension), Non-ST elevation myocardial infarction (NSTEMI), Acute pancreatitis Disposition: ADMITTED IP TO THIS [facility] Condition: Fair Is patient prescribed a controlled substance at d/c from ED?: No Referrals: Roel Lopez DO [Primary Care Provider] - 1-2 days
[2019-07-09] MEDS ORDERED: MORPHINE SULFATE 4 MG/ML SYRINGE IVP STA ×2 (12:56→14:33)
[2019-07-09 13:16] LABS: Basophils % (A) 0 %; Eosinophils # (A) 0.1 k/uL (0-0.7); Eosinophils % (A) 1 %; HCT 40.8 % (39.0-53.0); HGB 13.9 gm/dL (13.0-17.5); Lymphocytes # (A) 1.8 k/uL (1.0-4.8); Lymphocytes % (A) 22 %; MCH 31.4 pg (25.0-35.0); MCV 92.4 fL (80.0-100.0); Mean Platelet Volume 6.8; Monocytes # (A) 0.4 k/uL (0-1.0); Monocytes % (A) 5 %; Neutrophils # (A) 5.8 k/uL (1.3-7.7); Neutrophils % (A) 71 %; Platelet Count 152 k/uL (150-450); RBC 4.42 m/uL (4.30-5.90); RDW 13.8 % (11.5-15.5); WBC 8.3 k/uL (3.8-10.6)
[2019-07-09 13:24] LABS: Partial Thromboplastin Time 24.1 sec (22.0-30.0); Prothrombin Time 10.3 sec (9.0-12.0)
[2019-07-09 13:31] LABS: ALT 44 U/L (21-72); AST 30 U/L (17-59); African American GFR (CKD) >90 (>60 ml/min/1.73 sqM); Albumin 4.2 g/dL (3.5-5.0); Alkaline Phosphatase 138 U/L (38-126); Anion Gap 10 mmol/L; Blood Urea Nitrogen 12 mg/dL (9-20); Calcium 9.1 mg/dL (8.4-10.2); Carbon Dioxide 27 mmol/L (22-30); Chloride 105 mmol/L (98-107); Glucose 122 mg/dL (74-99); Magnesium 1.7 mg/dL (1.6-2.3); Non-African American GFR(CKD) >90 (>60 ml/min/1.73 sqM); Potassium 4.6 mmol/L (3.5-5.1); Sodium 142 mmol/L (137-145); Total Bilirubin 0.8 mg/dL (0.2-1.3)
[2019-07-09] MEDS ORDERED: SODIUM CHLORIDE 0.9% 1,000 ML IV STA ×2 (14:17)
[2019-07-09] MEDS ORDERED: SODIUM CHLORIDE 0.9% 500 ML 500 ML IV STA (14:17)
--- NOTE | 2019-07-09 14:25 | CT ---
EXAMINATION TYPE: CT angio chest DATE OF EXAM: 07/09/2019 2:13 PM COMPARISON: CTA chest 09/23/2016 HISTORY: Chest pain and abd pain CT DLP: 463.2 mGycm Automated exposure control for dose reduction was used. CONTRAST: CTA scan of the thorax is performed with IV Contrast, patient injected with 100 mL of Isovue 370, pul monary embolism protocol. . FINDINGS: The study is limited by respiratory motion, segmental arterial vessels cannot be accurately assessed. No filling defects within the pulmonary trunk through lobar pulmonary arteries. No focal airspace consolidation. No pleural effusion or pneumothorax. Left atrial enlargement. No pericardial effusion. Aorta is of normal course and caliber. The brachioc ephalic and left common carotid artery share a common origin off the aortic arch, normal variant. Mild-moderate degenerative changes of the thoracic spine with exaggerated thoracic kyphosis. Abdominal findings reported separately. IMPRESSION: Significantly limited study due to respiratory motion. No filling defect to suggest pulmonary embolis m in the pulmonary trunk through lobar branches; segmental thru subsegmental branches cannot be accur ately assessed.
[2019-07-09] MEDS ORDERED: ASPIRIN 81 MG PO STA (14:34)
[2019-07-09] MEDS ORDERED: NITROGLYCERIN SL TABS 0.4 MG TAB SUBLINGUAL PRN (14:34)
[2019-07-09] MEDS ORDERED: MORPHINE SULFATE 4 MG/ML SYRINGE IV PRN (14:34)
--- NOTE | 2019-07-09 15:01 | CT ---
EXAMINATION TYPE: CT abdomen pelvis w con DATE OF EXAM: 07/09/2019 COMPARISON: CTA chest same day, HISTORY: Chest pain and abd pain CT DLP: 1244 mGycm Automated exposure control for dose reduction was used. TECHNIQUE: Helical acquisition of images was performed from the lung bases through the pelvis. CONTRAST: Performed without Oral Contrast and with IV Contrast, patient injected with 100 mL of Isovue 370. FINDINGS: Study is limited by patient motion. The liver, spleen, pancreas, and adrenal glands are within normal limits. Small splenic hilar splenul e. Distended gallbladder without calcified gallstones. Fluid adjacent to the gallbladder fundus and a long the course of the common hepatic/upper bile duct. Symmetric renal enhancement without hydronephrosis. Bilateral fluid attenuating lesions statistically represent cysts. Urinary bladder is distended. Prominent size of the prostate gland. Free fluid layers within the pelvic basin. No dilated bowel or free air. Colonic diverticula without pericolonic inflammation. Morphologically normal appendix. No pathologically enlarged lymph nodes. The aorta is of normal course and caliber; few aortoiliac vascular calcifications. No aggressive osseous lesion. At least moderate degenerative changes of the hips (left greater than r ight) and mild to moderate degenerative change throughout the lumbar spine. IMPRESSION: 1. Small amount of free fluid within the abdomen which is primarily centered around a distended gallb ladder. No calcified gallstones are visualized. Correlation with laboratory values is recommended. 2. Colonic diverticulosis without findings of diverticulitis.
[2019-07-09] MEDS: SODIUM CHLORIDE 0.9% 1,000 ML IV SCH (15:54)
[2019-07-09] MEDS ORDERED: MORPHINE SULFATE 2 MG/ML SYRINGE IVP STA (16:16)
[2019-07-09] MEDS: PANTOPRAZOLE 40 MG TABLET PO SCH (17:00)
[2019-07-09] MEDS: CARVEDILOL 12.5 MG TAB PO SCH (17:00)
--- NOTE | 2019-07-09 17:08 | US ---
EXAMINATION TYPE: US gallbladder DATE OF EXAM: 07/09/2019 COMPARISON: CT 07/09/2019, US 08/09/2015 CLINICAL HISTORY: Abdominal pain. Difficult and limited exam due to patient body habitus, movement, a nd talking EXAM MEASUREMENTS: Liver Length: 15.6 cm Gallbladder Wall: 0.2 cm CBD: 0.6 cm Right Kidney: 12.0 x 5.9 x 5.9 cm Pancreas: Body and tail obscured by bowel gas. Visualized portions appear wnl Liver: Limited visualization. Heterogeneous Gallbladder: Distended Evidence for sonographic Avina's sign: No CBD: wnl as visualized, distal potion obscured by bowel gas Right Kidney: No hydronephrosis. Cystic area measuring 1.1 cm IMPRESSION: Distended gallbladder. No evidence for cholelithiasis or ultrasonographic findings of acute cholecyst itis. Common bile duct is nondilated.
[2019-07-09] MEDS: PHENYTOIN SODIUM EXTENDED 100 MG CAP PO SCH (19:40)
[2019-07-09] MEDS: APIXABAN 5 MG TAB PO SCH (19:40)
[2019-07-09] MEDS: HYDROmorphone 1 MG/ML 1 ML SYRINGE IVP PRN (19:40)
[2019-07-09] MEDS: LISINOPRIL 20 MG TAB PO SCH (19:40)
[2019-07-09] MEDS ORDERED: METOPROLOL TARTRATE 50 MG TAB PO SCH (21:00)
[2019-07-10] MEDS: HYDROmorphone 1 MG/ML 1 ML SYRINGE IVP PRN ×5 (03:21→20:13)
[2019-07-10] MEDS: SODIUM CHLORIDE 0.9% 1,000 ML IV SCH ×3 (03:21→20:08)
[2019-07-10 03:39] LABS: Cholesterol 88 mg/dL (<200); HDL Cholesterol 67 mg/dL (40-60); LDL Cholesterol,Calculated 9 mg/dL (0-99); Triglycerides 60 mg/dL (<150)
[2019-07-10] MEDS: PANTOPRAZOLE 40 MG TABLET PO SCH (06:20)
[2019-07-10] MEDS: CARVEDILOL 12.5 MG TAB PO SCH ×2 (06:27→16:33)
[2019-07-10] MEDS: PHENYTOIN SODIUM EXTENDED 100 MG CAP PO SCH ×3 (07:59→20:05)
[2019-07-10] MEDS: APIXABAN 5 MG TAB PO SCH (08:00)
[2019-07-10] MEDS: ASPIRIN 81 MG PO SCH (08:00)
[2019-07-10] MEDS: ALLOPURINOL 300 MG TAB PO SCH (08:00)
[2019-07-10] MEDS: LISINOPRIL 20 MG TAB PO SCH ×2 (08:00→20:05)
[2019-07-10] MEDS: TAMSULOSIN 0.4 MG CAP.ER.24H PO SCH (08:00)
[2019-07-10] MEDS: ATORVASTATIN 80 MG TAB PO SCH (08:00)
[2019-07-10] MEDS ORDERED: ASPIRIN 325 MG TAB PO SCH (09:00)
--- NOTE | 2019-07-10 09:17 | P.CRDCN ---
History of Present Illness Consult date: 07/10/19 Requesting physician: Sol Allan Reason for Consult (text): NSTEMI Chief complaint: Epigastric and RUQ pain History of present illness: This is a pleasant 84-year-old gentleman who follows with Dr. Jimenes in the office. He has a history of CAD, previous [place], PE, hypertension, hyperlipidemia, COPD. Presented to the emergency department with complaints of epigastric and right upper quadrant discomfort that had no relieving factors with tenderness to palpation and associated shortness of breath and nausea. According to the patient the symptoms were quite different compared to symptoms he had with his MIs in the past. CT of the chest was done due to history of PEs which was significantly limited due to respiratory motion but showed no filling defect to suggest pulmonary embolism in the pulmonary trunk through the lobar branches but segmental through subsegmental branches could not accurately be assessed. EKG on presentation to the emergency department was of poor quality showed sinus rhythm with PVC however not adequately able to assess for any ST or T-wave abnormalities. Repeat EKG this morning showed sinus rhythm without ST-T wave abnormalities. Computed tomography scan of the abdomen and pelvis showed small amount of free fluid within the abdomen which is primarily centered around a distended gallbladder, no calcified gallstones visualized, correlation with laboratory values is recommended, colonic diverticulosis without findings of diverticulitis. Ultrasound of the gallbladder showed distended gallbladder, no evidence of cholelithiasis or ultrasonography findings of acute cholecystitis, common bile duct is nondilated. A values on admission show normal electrolytes, BUN 12, creatinine 0.64, alkaline phosphatase 138, and lipase of 1516. Troponins came back to be minimally elevated at 0.115, 0.083 and 0.080. Upon examination this morning, patient is resting comfortably in bed. He denies current complaints of shortness of breath but has been feeling nauseous with continued epigastric and right upper quadrant discomfort. He denies any complaints of chest pain. At home he has had no complaints of edema, orthopnea or PND. He does complain of nocturia which is chronic, he is on Flomax. Past Medical History Past Medical History: Coronary Artery Disease (CAD), COPD, Hyperlipidemia, Hypertension, Myocardial Infarction ([place]), Pneumonia, Renal Disease, Seizure Disorder Additional Past Medical History / Comment(s): Pt had recent bilateral pneumonia- completed ABX yesterday. 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 Past medical records indicate HTN, high cholesterol, BPH and COPD, but pt and family deny these-see pt med list. 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 Past trauma Past Anesthesia/Blood Transfusion Reactions: No Reported Reaction Date of Last Stent Placement:: 2014 Past Psychological History: No Psychological Hx Reported Additional Psychological History / Comment(s): Pt lives with his spouse of 60 yrs. He uses a walker. He drives. He is an [employer] and served over in [place]. Smoking Status: Never smoker Past Alcohol Use History: None Reported Past Drug Use History: None Reported - Past Family History Mother Additional Family Medical History / Comment(s): Mother had mental health problems. Father Family Medical History: No Reported History Medications and Allergies Home Medications Medication Instructions Recorded Confirmed Type Allopurinol [Zyloprim] 300 mg PO DAILY 09/23/16 07/09/19 History Atorvastatin [Lipitor] 80 mg PO DAILY 09/23/16 07/09/19 History Omeprazole [PriLOSEC] 20 mg PO DAILY 09/23/16 07/09/19 History Tamsulosin [Flomax] 0.4 mg PO DAILY 09/23/16 07/09/19 History Apixaban [Eliquis] 5 mg PO BID #60 tab 09/26/16 07/09/19 Rx Aspirin 81 mg PO DAILY #30 chew 09/26/16 07/09/19 Rx Carvedilol [Coreg] 25 mg PO BID 11/21/17 07/09/19 History Metoprolol Tartrate [Lopressor] 25 mg PO DAILY 11/21/17 07/09/19 History Phenytoin Sodium Extended 200 mg PO TID 11/21/17 07/09/19 History [Dilantin] Lisinopril [Zestril] 20 mg PO BID #60 tab 11/08/18 07/09/19 Rx Allergies Allergy/AdvReac Type Severity Reaction Status Date / Time Penicillins Allergy Rash/Hives Verified 07/09/19 16:00 Physical Exam Vitals: Vital Signs Temp Pulse Pulse Resp BP BP Pulse Ox 07/10/19 03:41 18 07/10/19 03:18 98 F 74 18 148/68 96 07/09/19 23:43 72 18 162/78 94 L 07/09/19 19:42 98.4 F 70 20 160/86 94 L 07/09/19 15:30 98.0 F 72 18 171/89 97 07/09/19 15:05 97.7 F 71 20 167/107 93 L 07/09/19 11:53 98.4 F 67 18 203/108 100 Intake and Output 07/09/19 07/10/19 07/10/19 22:59 06:59 14:59 Output Total 900 Balance -900 Output: Urine 900 Other: Voiding Method Urinal # Voids 1 Weight 115.212 kg 110 kg PHYSICAL EXAMINATION: HEENT: Head is atraumatic, normocephalic. Pupils equal, round. Neck is supple. There is no elevated jugular venous pressure. No carotid bruit. HEART EXAMINATION: Heart sounds regular, S1 and S2 with a systolic murmur. CHEST EXAMINATION: Lungs no expiratory wheezing throughout. No chest wall tenderness is noted on palpation or with deep breathing. ABDOMEN: Soft, right upper quadrant and epigastric tenderness. Bowel sounds are heard. EXTREMITIES: 2+ peripheral pulses with no evidence of peripheral edema and no calf tenderness noted. NEUROLOGIC patient is awake, alert and oriented x3. . Results 07/09/19 12:30 07/09/19 12:30 Cardiac Enzymes 07/09/19 07/09/19 07/09/19 Range/Units 12:30 12:30 18:08 AST 30 (17-59) U/L Troponin I 0.115 H* 0.083 H* (0.000-0.034) ng/mL 07/10/19 Range/Units 00:46 AST (17-59) U/L Troponin I 0.080 H* (0.000-0.034) ng/mL Coagulation 07/09/19 Range/Units 12:30 PT 10.3 (9.0-12.0) sec APTT 24.1 (22.0-30.0) sec Lipids 07/09/19 Range/Units 12:30 Triglycerides 60 (<150) mg/dL Cholesterol 88 (<200) mg/dL HDL Cholesterol 67 H (40-60) mg/dL CBC 07/09/19 Range/Units 12:30 WBC 8.3 (3.8-10.6) k/uL RBC 4.42 (4.30-5.90) m/uL Hgb 13.9 (13.0-17.5) gm/dL Hct 40.8 (39.0-53.0) % Plt Count 152 (150-450) k/uL Comprehensive Metabolic Panel 07/09/19 Range/Units 12:30 Sodium 142 (137-145) mmol/L Potassium 4.6 (3.5-5.1) mmol/L Chloride 105 (98-107) mmol/L Carbon Dioxide 27 (22-30) mmol/L BUN 12 (9-20) mg/dL Creatinine 0.64 L (0.66-1.25) mg/dL Glucose 122 H (74-99) mg/dL Calcium 9.1 (8.4-10.2) mg/dL AST 30 (17-59) U/L ALT 44 (21-72) U/L Alkaline Phosphatase 138 H (38-126) U/L Total Protein 7.0 (6.3-8.2) g/dL Albumin 4.2 (3.5-5.0) g/dL Current Medications Generic Name Dose Route Start Last Admin Trade Name Freq PRN Reason Stop Dose Admin Allopurinol 300 mg 07/10/19 09:00 07/10/19 08:00 Zyloprim PO 300 mg DAILY MARYBEL Administration Apixaban 5 mg 07/09/19 21:00 07/10/19 08:00 Eliquis PO 5 mg BID MARYBEL Administration Aspirin 81 mg 07/10/19 09:00 07/10/19 08:00 Aspirin PO 81 mg DAILY MARYBEL Administration Atorvastatin Calcium 80 mg 07/10/19 09:00 07/10/19 08:00 Lipitor PO 80 mg DAILY MARYBEL Administration Carvedilol 25 mg 07/09/19 17:30 07/10/19 06:27 Coreg PO 25 mg AC-BID MARYBEL Administration Hydromorphone HCl 1 mg 07/09/19 16:54 07/10/19 08:04 Dilaudid IVP 1 mg Q4HR PRN Administration Pain Sodium Chloride 1,000 mls @ 100 mls/hr 07/09/19 14:45 07/10/19 08:00 Saline 0.9% IV Not Given .Q10H MARYBEL Lisinopril 20 mg 07/09/19 21:00 07/10/19 08:00 Zestril PO 20 mg BID MARYBEL Administration Morphine Sulfate 4 mg 07/09/19 14:34 07/09/19 22:32 Morphine Sulfate (Inj) IV 4 mg Q4HR PRN Administration Chest Pain Nitroglycerin 0.4 mg 07/09/19 14:34 Nitrostat SUBLINGUAL Q5M PRN Chest Pain Pantoprazole Sodium 40 mg 07/09/19 16:30 07/10/19 06:20 Protonix PO Not Given AC-BRKFST MARYBEL Phenytoin Sodium 200 mg 07/09/19 22:00 07/10/19 07:59 Dilantin PO 200 mg TID MARYBEL Administration Tamsulosin HCl 0.4 mg 07/10/19 09:00 07/10/19 08:00 Flomax PO 0.4 mg DAILY MARYBEL Administration Intake and Output 07/09/19 07/10/19 07/10/19 22:59 06:59 14:59 Output Total 900 Balance -900 Output: Urine 900 Other: Voiding Method Urinal # Voids 1 Weight 115.212 kg 110 kg 07/09/19 12:30 07/09/19 12:30 EKG Interpretations (text) Sinus rhythm Assessment and Plan Assessment: #1 acute pancreatitis with evidence of gallbladder distention and symptoms of epigastric and right upper quadrant pain #2 troponin elevation #3 history of CAD #4 hypertension #5 hyperlipidemia #6 COPD Plan: From cardiology perspective, patient has evidence of epigastric and right upper quadrant pain with no evidence of chest discomfort. We will obtain a 2-D echo with Doppler. We will add oral nitrate. Continue to monitor blood pressure closely and make adjustments as necessary. We would recommend surgical consult for gallbladder disease. We will continue to follow the patient and provide further recommendations depending on clinical course and echocardiogram results. 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 Patient was seen and examined.
[2019-07-10] MEDS: ISOSORBIDE MONONITRATE ER 30 MG TAB.ER.24H PO SCH (11:13)
--- NOTE | 2019-07-10 12:14 | P.HPIM ---
History of Present Illness H&P Date: 07/09/19 Chief Complaint: Abdominal pain Patient is a 84-year-old male with a known history of coronary artery disease with history of stent placement, history of pancreatitis, previous history of [place], hypertension, hyperlipidemia, seizure disorder, nephrolithiasis, BPH and other medical problems and obesity came to ER with complaints of abdominal pain mainly in the epigastric region and sometimes right upper quadrant.. Pain is associated with nausea. No episodes of vomiting. Patient started having symptoms since yesterday evening. Denied any radiation of the pain to the back. But patient does say that the pain is going inside the abdomen. No headache or dizziness or lightheadedness. Denied any leg swelling. No orthopnea no PND. CT angiogram showed pulmonary trunk and through lobar branches. Segmental through subsegmental branches cannot be accurately assessed. EKG on admission showed sinus rhythm. PVCs noted. Ultrasound abdomen report is pending at this time. Troponin 0.115, 0.083 and 0.080. Lipase level 1516 Review of Systems Constitutional: Patient denies any fever or chills . No generalized weakness or weight loss. Abdomen: Patient does have epigastric abdominal pain with nausea. No diarrhea.. Cardiovascular: Patient denies any chest pain or short of breath no palpi tations. Respiratory: patient denied any cough is from production. No shortness of breath Neurologic: Patient denied any numbness or tingling headache. Musculoskeletal: Patient denies any complaints of joint swelling or deformity. Skin: Negative Psychiatric: Negative Endocrine: No heat or cold intolerance. No recent weight gain. Genitourinary: No dysuria or hematuria. All other 14 point ROS negative except the above Past Medical History Past Medical History: Coronary Artery Disease (CAD), COPD, Hyperlipidemia, Hypertension, Myocardial Infarction ([place]), Pneumonia, Renal Disease, Seizure Disorder Additional Past Medical History / Comment(s): Pt had recent bilateral pneumonia- completed ABX yesterday. 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 Past medical records indicate HTN, high cholesterol, BPH and COPD, but pt and family deny these-see pt med list. 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 Past trauma Past Anesthesia/Blood Transfusion Reactions: No Reported Reaction Date of Last Stent Placement:: 2014 Past Psychological History: No Psychological Hx Reported Additional Psychological History / Comment(s): Pt lives with his spouse of 60 yrs. He uses a walker. He drives. He is an [employer] and served over in [place]. Smoking Status: Never smoker Past Alcohol Use History: None Reported Past Drug Use History: None Reported - Past Family History Mother Additional Family Medical History / Comment(s): Mother had mental health problems. Father Family Medical History: No Reported History Medications and Allergies Home Medications Medication Instructions Recorded Confirmed Type Allopurinol [Zyloprim] 300 mg PO DAILY 09/23/16 07/09/19 History Atorvastatin [Lipitor] 80 mg PO DAILY 09/23/16 07/09/19 History Omeprazole [PriLOSEC] 20 mg PO DAILY 09/23/16 07/09/19 History Tamsulosin [Flomax] 0.4 mg PO DAILY 09/23/16 07/09/19 History Apixaban [Eliquis] 5 mg PO BID #60 tab 09/26/16 07/09/19 Rx Aspirin 81 mg PO DAILY #30 chew 09/26/16 07/09/19 Rx Carvedilol [Coreg] 25 mg PO BID 11/21/17 07/09/19 History Metoprolol Tartrate [Lopressor] 25 mg PO DAILY 11/21/17 07/09/19 History Phenytoin Sodium Extended 200 mg PO TID 11/21/17 07/09/19 History [Dilantin] Lisinopril [Zestril] 20 mg PO BID #60 tab 11/08/18 07/09/19 Rx Allergies Allergy/AdvReac Type Severity Reaction Status Date / Time Penicillins Allergy Rash/Hives Verified 07/09/19 16:00 Physical Exam Vitals: Vital Signs Temp Pulse Pulse Resp BP BP Pulse Ox 07/09/19 15:30 98.0 F 72 18 171/89 97 07/09/19 15:05 97.7 F 71 20 167/107 93 L 07/09/19 11:53 98.4 F 67 18 203/108 100 Intake and Output 07/09/19 07/09/19 07/09/19 06:59 14:59 22:59 Other: Voiding Method Urinal Weight 115.212 kg 115.212 kg PHYSICAL EXAMINATION: Patient is lying in the bed comfortably, no acute distress, awake alert and oriented.. HEENT: Normocephalic. Neck is supple. Pupils reactive. Nostrils clear. Oral cavity is moist. Ears reveal no drainage. Neck reveals no JVD, carotid bruits, or thyromegaly. CHEST EXAMINATION: Trachea is central. Symmetrical expansion. Lung nowak clear to auscultation and percussion. CARDIAC: Normal S1, S2 with no gallops. No murmurs ABDOMEN: Soft. Epigastric tenderness. Mild right upper quadrant tenderness. No guarding no rigidity. Bowel sounds normal. No organomegaly. No abdominal bruits. Extremities: reveal no edema. No clubbing or cyanosis Neurologically awake, alert, oriented x3 with well-coordinated movements. No focal deficits noted Skin: No rash or skin lesions. Psychiatric: Coperative. Nonsuicidal Musculoskeletal: No joint swelling or deformity. Normal range of motion. Results CBC & Chem 7: 07/09/19 12:30 07/09/19 12:30 Labs: Abnormal Lab Results - Last 24 Hours (Table) 07/09/19 07/09/19 Range/Units 12:30 12:30 Creatinine 0.64 L (0.66-1.25) mg/dL Glucose 122 H (74-99) mg/dL Alkaline Phosphatase 138 H (38-126) U/L Troponin I 0.115 H* (0.000-0.034) ng/mL Lipase 1516 H (23-300) U/L Thrombosis Risk Factor Assmnt - DVT/VTE Prophylaxis DVT/VTE Prophylaxis: Pharmacologic Prophylaxis ordered - Choose All That Apply Each Factor Represents 1 point: Obesity (BMI >25) Other Risk Factors: Yes Each Risk Factor Represents 3 Points: Age 75 years or older Thrombosis Risk Factor Assessment Total Risk Factor Score: 4 Thrombosis Risk Factor Assessment Level: Moderate Risk Assessment and Plan Assessment: Epigastric abdominal pain secondary to acute pancreatitis possibly gallbladder related. Atypical chest pain. Ruled out ACS. History of coronary artery disease status post stent placement previously History of DVT/PE in the past. CT angiogram is negative for pulmonary embolism currently. Hypertension History of [place] Seizure disorder Hyperlipidemia Obesity with BMI 32.9 DVT prophylaxis with heparin subcu Plan: Patient will be continued on IV hydration. Continue Protonix. Nothing by mouth. Gastroenterology was consulted due to recurrent pancreatitis. Cardiology was consulted as well. Continue the home medications and further recommendations based on clinical course. Currently patient is nothing by mouth. Prognosis is guarded. Time with Patient: Greater than 30
--- NOTE | 2019-07-10 13:07 | CONS ---
CONSULTATION DATE OF SERVICE: July 10, 2019. REQUESTING PHYSICIAN: Dr. Roel Lopez. REASON FOR CONSULTATION: Acute pancreatitis. HISTORY OF PRESENT ILLNESS: The patient is an 84-year-old pleasant white male who came to the emergency room complaining of abdominal pain for the last 3 or 4 days duration. He has pain mostly in the epigastric area as well as in the right upper quadrant area, occasionally radiating to the right lower quadrant area associated with some nausea, vomiting. He also had some chest pain and shortness of breath. Also, he came to the emergency room yesterday and in the ER was noted to have elevated amylase and lipase consistent with acute pancreatitis. The patient does not recall ever having acute pancreatitis in the past. He was also noted to have elevated troponins and cardiology has been consulted. The patient has history of coronary artery disease with stent placement in the past. Troponins were elevated at 0.1 and 0.083. He also had some ST and T-wave changes and hence cardiology has been consulted. This morning, he feels a little bit better. He still has some epigastric pain. No further episodes of nausea, vomiting. He denies any alcohol use. He denies any issues, problems with the gallbladder in the past. PAST MEDICAL HISTORY: Significant for coronary artery disease, hypertension, hyperlipidemia, history of LA in the past, seizure disorder. MEDICATIONS: Medications at home include: Zyloprim, Lipitor, Prilosec, Flomax, Eliquis, aspirin, Coreg, Dilantin, Zestril and Lopressor. ALLERGIES: PENICILLIN. SOCIAL HISTORY: No smoking. No alcohol use. PAST SURGICAL HISTORY: Hernia repair, bilateral knee arthroscopy, EGD, colonoscopy, inguinal hernia repair. FAMILY HISTORY: Mother had congestive heart failure. REVIEW OF SYSTEMS: CARDIOPULMONARY: He does complain of some chest pain, but no shortness. GENITOURINARY: No dysuria or hematuria. MUSCULOSKELETAL unremarkable. SKIN unremarkable. ENDOCRINE unremarkable. PSYCHIATRIC unremarkable. NEUROLOGY unremarkable. ENT/vision unremarkable. CONSTITUTIONAL: No recent weight loss. No fever, chills, night sweats. GI as mentioned above. No prior history of peptic ulcer disease or recent NSAID use. PHYSICAL EXAMINATION: On physical examination he appears comfortable. No apparent distress. VITAL SIGNS: Stable. Blood pressure is 134/74, pulse is 78, temperature 97. HEENT examination unremarkable. Conjunctivae pink. Sclerae anicteric. Oral cavity no lesions. NECK: No JVD or lymph node enlargement. CHEST: Clear to auscultation. HEART: Regular rate and rhythm. ABDOMEN: Soft, it was obese. There was mild tenderness in the epigastric area. Minimal tenderness in the right upper quadrant area as well as in the right lower quadrant area. The rest of the abdomen was benign. Bowel sounds are positive. No organomegaly. EXTREMITIES: No pedal edema. SKIN no rashes. NEUROLOGICAL: He is alert and oriented x3. No focal deficits. LABS: WBC 8.3, hemoglobin 13.9, platelets normal. PT/INR is within normal limits. Lipase 1516. Amylase was not done. Troponin was 0.115. ALT, AST, T-bilirubin within normal limits. Alkaline phosphatase was minimally elevated at 138. He did have a CT of the abdomen and pelvis done in the emergency room that showed normal-appearing gallbladder with no evidence of gallstones. Pancreas was also within normal limits. Small amount of free fluid noted in the abdomen and colonic diverticulosis seen. Ultrasound of the gallbladder did not show any evidence of gallstones. IMPRESSION: 1. The patient presents to hospital with epigastric pain and right upper quadrant abdominal pain for the last 3 days duration. Presented with nausea and vomiting and noted to have elevated lipase consistent with acute pancreatitis. He does not have any history of alcohol use and ultrasound as well as CT scan did not show any evidence of gallstones. At this time etiology of pancreatitis remains unclear. He denies starting any new medications recently. Other etiologies need to be considered. Clinically patient is doing well. 2. Elevated troponins and ST and T-wave changes on EKG. Cardiology has been consulted. 3. History of hypertension. 4. Hyperlipidemia. 5. Coronary artery disease status post myocardial infarction in the past. RECOMMENDATIONS: 1. Start on clear liquid diet. 2. Obtain fasting serum triglycerides and antinuclear antibody as a part of workup for acute pancreatitis. 3. Repeat labs in the morning. 4. We will follow with you closely. Thank you for this consultation. MMODL / IJN: [id number] /
--- NOTE | 2019-07-10 16:08 | P.GSCN ---
History of Present Illness Consult date: 07/10/19 History of present illness: CHIEF COMPLAINT: Distended gallbladder HISTORY OF PRESENT ILLNESS: The patient is a 84 year old male who came in initially with atypical chest pain and epigastric abdominal pain. He had elevated troponins upon admission. Cardiology consultation was completed and ruled out any cardiac cause. As a result of their assessment, evaluation for gallbladder disease was advised. Gastroenterology is also following. Patient had incidental finding of elevated lipase consistent with acute pancreatitis. Additionally, he has prior episodes upon review of his records dating back in November 2018 for similar symptoms. He also presented with elevated lipase. At that time he was treated conservatively without any additional MRCP or surgical assessment. Currently, he denies any atypical chest pain. He reports the pain now radiates solely to the right upper quadrant. General surgery is consulted with regards to his abdominal pain including distended gallbladder found on CT. PAST MEDICAL HISTORY: See list. PAST SURGICAL HISTORY: See list. MEDICATIONS: See list. ALLERGIES: See list. SOCIAL HISTORY: See list. FAMILY HISTORY: See list. REVIEW OF ORGAN SYSTEMS: CONSTITUTIONAL: No fevers or chills. EYES: Denies any trouble with vision. No glasses. HEENT: No difficulties with hearing. No nosebleeds. No difficulty swallowing. RESPIRATORY: Past pneumonia. History of dyspnea on exertion. CARDIOVASCULAR: Past chest pain, palpitations, or recent heart attacks. GASTROINTESTINAL: No recent blood in stools GENITOURINARY: Denies any blood in urine. Has increased urinary frequency. NEUROLOGICAL: Denies any numbness or tingling along the distal extremities. Has seizure disorders.. MUSCULOSKELETAL: Has back pain, stiffness or joint arthritis. Has gout SKIN: No current skin cancer. No rash. PSYCHIATRIC: Denies current depression or suicidal thoughts. ENDOCRINE: Denies current thyroid disorders. Denies any blood sugar glucose intolerance. HEME/LYMPHATIC: Denies any lumps and bumps around the neck. No recent deep venous thrombosis. ALLERGY/IMMUNOLOGY: No immunoglobulin therapy. No immune deficiencies. BREAST: Denies current breast lumps, pain or nipple discharge. PHYSICAL EXAM: VITALS: Reviewed CONSTITUTIONAL: Well developed and in mild distress secondary to right upper quadrant pain EYES: Conjuctivae without sclera icterus. Pupils are equally round and reactive to light. Extraocular movements grossly intact. HEAD, EARS, NOSE, THROAT: Moist buccal mucosa. Head is atraumatic, normocephalic. Hears conversational speech. No nasal drainage. NECK: Supple. RESPIRATORY: Non-labored respirations and equal bilateral excursions. No gross wheezes. CARDIOVASCULAR: Palpable 2+ radial pulses. ABDOMEN: Soft. Non-tender. Nondistended. MUSCULOSKELETAL: Nail and fingers with good capillary refill. SKIN: Warm and well perfused with good skin turgor. NEUROLOGIC: Cranial nerves I through XII grossly intact. Sensation upper and extremities intact. No focal or lateralizing signs. PSYCH: Appropriate affect. Alert and oriented to person, place and time. Displays appropriate insight. CLINCAL LABS: Reviewed. Lipase elevated over 1500. Troponin is trending down from 0.1 to .08 RADIOLOGY: Report reviewed. Colonic diverticulosis with fluid about the gallbladder and gallbladder is distended IMAGING: CT of the abdomen and pelvis independently reviewed features of distending gallbladder without acute inflammatory changes. Ultrasound of the gallbladder independently reviewed confirming gallbladder wall thickened beyond 2 mm to 2.6 mm. No large gallstones identified RECORDS: previous old records reviewed. Hospitalization records from November 2018 similarly demonstrated elevated lipase level. Ultrasound at that time confirmed gallbladder wall thickened at least 3 mm. No stones identified. ASSESSMENT: 1. Right upper quadrant abdominal pain and moderate to severe 2. Abnormal computed tomography scan of distending gallbladder 3. Acute pancreatitis, recurrent 4. COPD 5. Atypical chest pain with recent elevation troponins PLAN: 1. His clinical symptoms including recurrent pancreatitis in the setting of right upper quadrant abdominal pain is highly suspicious of a gallbladder etiology. Stones may still cause similar symptoms however not all gallstones are radio opaque and found on ultrasound. 2. Recommend HIDA scan to evaluate for acute cholecystitis. His ultrasounds at least done twice confirms thickened gallbladder wall highly suspicious for chronic cholecystitis 3. Recommend discontinuing Eliquis where at least 48 hours is needed prior to any surgical intervention. 4. Low fat diet only. Thank you for this kind consultation. Past Medical History Past Medical History: Coronary Artery Disease (CAD), COPD, Hyperlipidemia, Hypertension, Myocardial Infarction (ND), Pneumonia, Renal Disease, Seizure Disorder Additional Past Medical History / Comment(s): Pt had recent bilateral pneumonia- completed ABX yesterday. 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 Past medical records indicate HTN, high cholesterol, BPH and COPD, but pt and family deny these-see pt med list. 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 Past trauma Past Anesthesia/Blood Transfusion Reactions: No Reported Reaction Date of Last Stent Placement:: 2014 Past Psychological History: No Psychological Hx Reported Additional Psychological History / Comment(s): Pt lives with his spouse of 60 yrs. He uses a walker. He drives. He is an [employer] and served over in [place]. Smoking Status: Never smoker Past Alcohol Use History: None Reported Past Drug Use History: None Reported - Past Family History Mother Additional Family Medical History / Comment(s): Mother had mental health problems. Father Family Medical History: No Reported History Medications and Allergies Home Medications Medication Instructions Recorded Confirmed Type Allopurinol [Zyloprim] 300 mg PO DAILY 09/23/16 07/09/19 History Atorvastatin [Lipitor] 80 mg PO DAILY 09/23/16 07/09/19 History Omeprazole [PriLOSEC] 20 mg PO DAILY 09/23/16 07/09/19 History Tamsulosin [Flomax] 0.4 mg PO DAILY 09/23/16 07/09/19 History Apixaban [Eliquis] 5 mg PO BID #60 tab 09/26/16 07/09/19 Rx Aspirin 81 mg PO DAILY #30 chew 09/26/16 07/09/19 Rx Carvedilol [Coreg] 25 mg PO BID 11/21/17 07/09/19 History Metoprolol Tartrate [Lopressor] 25 mg PO DAILY 11/21/17 07/09/19 History Phenytoin Sodium Extended 200 mg PO TID 11/21/17 07/09/19 History [Dilantin] Lisinopril [Zestril] 20 mg PO BID #60 tab 11/08/18 07/09/19 Rx Allergies Allergy/AdvReac Type Severity Reaction Status Date / Time Penicillins Allergy Rash/Hives Verified 07/09/19 16:00 Surgical - Exam Vital Signs Temp Pulse Resp BP Pulse Ox 98.4 F 67 18 203/108 100 07/09/19 11:53 07/09/19 11:53 07/09/19 11:53 07/09/19 11:53 07/09/19 11:53 Results - Labs 07/09/19 12:30 07/09/19 12:30 Abnormal Lab Results - Last 24 Hours (Table) 07/09/19 07/09/19 07/10/19 Range/Units 12:30 18:08 00:46 Troponin I 0.083 H* 0.080 H* (0.000-0.034) ng/mL HDL Cholesterol 67 H (40-60) mg/dL Diabetes panel 07/09/19 Range/Units 12:30 Triglycerides 60 (<150) mg/dL HDL Cholesterol 67 H (40-60) mg/dL Assessment and Plan (1) COPD (chronic obstructive pulmonary disease) Current Visit: Yes Status: Acute Code(s): J44.9 - CHRONIC OBSTRUCTIVE PULMONARY DISEASE, UNSPECIFIED SNOMED Code(s): 33773891 (2) Right upper quadrant abdominal pain Current Visit: Yes Status: Acute Code(s): R10.11 - RIGHT UPPER QUADRANT PAIN SNOMED Code(s): 590161321 (3) Chronic cholecystitis Current Visit: Yes Status: Acute Code(s): K81.1 - CHRONIC CHOLECYSTITIS SNOMED Code(s): 24753758 (4) Acute pancreatitis Current Visit: Yes Status: Acute Code(s): K85.90 - ACUTE PANCREATITIS WITHOUT NECROSIS OR INFECTION, UNSP SNOMED Code(s): 524347969 (5) HTN (hypertension) Current Visit: Yes Status: Acute Code(s): I10 - ESSENTIAL (PRIMARY) HYPERTEN JO ANN SNOMED Code(s): 96598910 (6) Non-ST elevation myocardial infarction (NSTEMI) Current Visit: Yes Status: Acute Code(s): I21.4 - NON-ST ELEVATION (NSTEMI) MYOCARDIAL INFARCTION SNOMED Code(s): 85893031 (7) CAD (coronary artery disease) Current Visit: No Status: Acute Code(s): I25.10 - ATHSCL HEART DISEASE OF [place] CORONARY ARTERY W/O ANG PCTRS SNOMED Code(s): 24624672 (8) Anticoagulant long-term use Current Visit: Yes Status: Acute Code(s): Z79.01 - RIGHT OF WAY AGENT (CURRENT) USE OF ANTICOAGULANTS SNOMED Code(s): 291477367
[2019-07-11] MEDS: HYDROmorphone 1 MG/ML 1 ML SYRINGE IVP PRN ×2 (01:25→08:37)
--- NOTE | 2019-07-11 01:58 | P.PN ---
Subjective Progress Note Date: 07/10/19 Principal diagnosis: Abdominal pain Patient is a 84-year-old male with a known history of coronary artery disease with history of stent placement, history of pancreatitis, previous history of MA, hypertension, hyperlipidemia, seizure disorder, nephrolithiasis, BPH and other medical problems and obesity came to ER with complaints of abdominal pain mainly in the epigastric region and sometimes right upper quadrant.. Pain is associated with nausea. No episodes of vomiting. Patient started having symptoms since yesterday evening. Denied any radiation of the pain to the back. But patient does say that the pain is going inside the abdomen. No headache or dizziness or lightheadedness. Denied any leg swelling. No orthopnea no PND. CT angiogram showed pulmonary trunk and through lobar branches. Segmental through subsegmental branches cannot be accurately assessed. EKG on admission showed sinus rhythm. PVCs noted. Ultrasound abdomen report is pending at this time. Troponin 0.115, 0.083 and 0.080. Lipase level 1516 8 2018 Patient is still complaining of abdominal pain mainly in the epigastric and right upper quadrant. Ultrasound of the abdomen showed hydrops gallbladder. HIDA scan was ordered. Gen. surgery was consulted. Patient is currently nothi ng by mouth. Anticoagulation is on hold. Cardiology and general surgery is following. Active Medications Allopurinol (Zyloprim) 300 mg PO DAILY [facility] Last Admin: 07/10/19 08:00 Dose: 300 mg Documented by: Aspirin (Aspirin) 81 mg PO DAILY [facility] Last Admin: 07/10/19 08:00 Dose: 81 mg Documented by: Atorvastatin Calcium (Lipitor) 80 mg PO DAILY [facility] Last Admin: 07/10/19 08:00 Dose: 80 mg Documented by: Carvedilol (Coreg) 25 mg PO AC-BID [facility] Last Admin: 07/10/19 16:33 Dose: 25 mg Documented by: Hydromorphone HCl (Dilaudid) 1 mg IVP Q4HR PRN PRN Reason: Pain Last Admin: 07/11/19 01:25 Dose: 1 mg Documented by: Sodium Chloride (Saline 0.9%) 1,000 mls @ 100 mls/hr IV .Q10H [facility] Last Admin: 07/10/19 20:08 Dose: 100 mls/hr Documented by: Isosorbide Mononitrate (Imdur) 30 mg PO DAILY [facility] Last Admin: 07/10/19 11:13 Dose: 30 mg Documented by: Lisinopril (Zestril) 20 mg PO BID [facility] Last Admin: 07/10/19 20:05 Dose: 20 mg Documented by: Morphine Sulfate (Morphine Sulfate (Inj)) 4 mg IV Q4HR PRN PRN Reason: Chest Pain Last Admin: 07/09/19 22:32 Dose: 4 mg Documented by: Nitroglycerin (Nitrostat) 0.4 mg SUBLINGUAL Q5M PRN PRN Reason: Chest Pain Pantoprazole Sodium (Protonix) 40 mg PO AC-BRKFST [facility] Last Admin: 07/10/19 06:20 Dose: Not Given Documented by: Phenytoin Sodium (Dilantin) 200 mg PO TID [facility] Last Admin: 07/10/19 20:05 Dose: 200 mg Documented by: Tamsulosin HCl (Flomax) 0.4 mg PO DAILY [facility] Last Admin: 07/10/19 08:00 Dose: 0.4 mg Documented by: Objective - Vital Signs Vital signs: Vital Signs Temp 98.1 F 07/10/19 11:14 Pulse 84 07/10/19 11:14 Resp 18 07/10/19 11:14 BP 129/68 07/10/19 11:14 Pulse Ox 93 L 07/10/19 11:14 Intake & Output 07/09/19 07/10/19 07/10/19 18:59 06:59 18:59 Output Total 900 Balance -900 Weight 115.212 kg 110 kg Output: Urine 900 Other: Voiding Method Urinal Urinal # Voids 1 - Exam PHYSICAL EXAMINATION: Patient is lying in the bed comfortably, mild distress due to pain, awake alert and oriented.. HEENT: Normocephalic. Neck is supple. Pupils reactive. Nostrils clear. Oral cavity is moist. Ears reveal no drainage. Neck reveals no JVD, carotid bruits, or thyromegaly. CHEST EXAMINATION: Trachea is central. Symmetrical expansion. Bibasilar diminished air entry. Lung nowak clear to auscultation and percussion. CARDIAC: Normal S1, S2 with no gallops. No murmurs ABDOMEN: Soft. Right upper quadrant and epigastric tenderness. No guarding no rigidity. Bowel sounds normal. No organomegaly. No abdominal bruits. Extremities: reveal no edema. No clubbing or cyanosis Neurologically awake, alert, oriented x3 with well-coordinated movements. No focal deficits noted Skin: No rash or skin lesions. Psychiatric: Coperative. Nonsuicidal Musculoskeletal: No joint swelling or deformity. Normal range of motion. - Labs CBC & Chem 7: 07/09/19 12:30 07/09/19 12:30 Labs: Abnormal Lab Results - Last 24 Hours (Table) 07/09/19 07/09/19 07/09/19 Range/Units 12:30 12:30 12:30 Creatinine 0.64 L (0.66-1.25) mg/dL Glucose 122 H (74-99) mg/dL Alkaline Phosphatase 138 H (38-126) U/L Troponin I 0.115 H* (0.000-0.034) ng/mL HDL Cholesterol 67 H (40-60) mg/dL Lipase 1516 H (23-300) U/L 07/09/19 07/10/19 Range/Units 18:08 00:46 Creatinine (0.66-1.25) mg/dL Glucose (74-99) mg/dL Alkaline Phosphatase (38-126) U/L Troponin I 0.083 H* 0.080 H* (0.000-0.034) ng/mL HDL Cholesterol (40-60) mg/dL Lipase (23-300) U/L Assessment and Plan Assessment: Epigastric abdominal pain secondary to acute pancreatitis possibly gallbladder related. Hydrops gallbladder. Rule out acute cholecystitis. Atypical chest pain. Ruled out ACS. History of coronary artery disease status post stent placement previously History of DVT/PE in the past. CT angiogram is negative for pulmonary embolism currently. Hypertension History of MA Seizure disorder Hyperlipidemia Obesity with BMI 32.9 DVT prophylaxis with heparin subcu Plan: Patient will be continued on IV hydration. Continue Protonix. Nothing by mouth . Gastroenterology was consulted due to recurrent pancreatitis. Gen. surgery was consulted. Cardiology is on board. Continue the home medications and further recommendations based on clinical course. Currently patient is nothing by mouth. Prognosis is guarded. Time with Patient: Greater than 30
[2019-07-11] MEDS: PANTOPRAZOLE 40 MG TABLET PO SCH (05:36)
[2019-07-11] MEDS: CARVEDILOL 12.5 MG TAB PO SCH ×2 (05:36→16:41)
[2019-07-11] MEDS: SODIUM CHLORIDE 0.9% 1,000 ML IV SCH ×2 (05:37→16:42)
[2019-07-11 05:52] LABS: Amorphous Sediment,Urine Rare /hpf; Appearance,Urine Turbid (Clear); Bilirubin,Urine Negative (Negative); Blood,Urine Large (Negative); Color,Urine Dark Brown; Glucose,Urine (UA) Negative (Negative); Hyaline Casts,Urine 2 /lpf (0-2); Ketones,Urine Negative (Negative); Leukocyte Esterase,Urine Negative (Negative); Mucus,Urine Rare /hpf; Nitrite,Urine Negative (Negative); Protein,Urine 1+ (Negative); RBC,Urine >182 /hpf (0-5); Specific Gravity,Urine 1.022 (1.001-1.035); Squamous Epithelial Cell,Urine 1 /hpf (0-4); WBC,Urine 15 /hpf (0-5)
[2019-07-11 06:13] LABS: Basophils % (A) 0 %; Eosinophils % (A) 0 %; HCT 36.3 % (39.0-53.0); HGB 12.3 gm/dL (13.0-17.5); Lymphocytes # (A) 1.2 k/uL (1.0-4.8); Lymphocytes % (A) 9 %; MCH 31.5 pg (25.0-35.0); MCV 92.6 fL (80.0-100.0); Mean Platelet Volume 7.1; Monocytes # (A) 0.7 k/uL (0-1.0); Monocytes % (A) 6 %; Neutrophils # (A) 10.7 k/uL (1.3-7.7); Neutrophils % (A) 83 %; Platelet Count 117 k/uL (150-450); RBC 3.92 m/uL (4.30-5.90); RDW 13.8 % (11.5-15.5); WBC 12.8 k/uL (3.8-10.6)
[2019-07-11 06:19] LABS: ALT 38 U/L (21-72); AST 22 U/L (17-59); African American GFR (CKD) >90 (>60 ml/min/1.73 sqM); Albumin 3.2 g/dL (3.5-5.0); Alkaline Phosphatase 84 U/L (38-126); Anion Gap 9 mmol/L; Blood Urea Nitrogen 24 mg/dL (9-20); Calcium 8.4 mg/dL (8.4-10.2); Carbon Dioxide 25 mmol/L (22-30); Chloride 105 mmol/L (98-107); Glucose 122 mg/dL (74-99); Non-African American GFR(CKD) 84 (>60 ml/min/1.73 sqM); Sodium 139 mmol/L (137-145); Total Bilirubin 1.5 mg/dL (0.2-1.3); Total Protein 5.9 g/dL (6.3-8.2); Triglycerides 87 mg/dL (<150)
--- NOTE | 2019-07-11 08:11 | NM ---
EXAMINATION TYPE: NM hepatobiliary w CCK DATE OF EXAM: 07/11/2019 COMPARISON: Gallbladder ultrasound dated 07/09/2019 HISTORY: Acute cholecystitis per order history. TECHNIQUE: After the intravenous administration of 4.45 mCi Tc 99m Mebrofenin hepatobiliary scintigra phy is performed. Immediate images post injection. FINDINGS: There is normal hepatic uptake from 5:59 minutes. The patient refused to continue the exami nation. Gallbladder is not seen at 6 minutes. IMPRESSION: Incomplete exam. Patient refused to complete more than 6 minutes.
[2019-07-11] MEDS: ALLOPURINOL 300 MG TAB PO SCH (08:39)
[2019-07-11] MEDS: PHENYTOIN SODIUM EXTENDED 100 MG CAP PO SCH ×3 (08:39→19:46)
[2019-07-11] MEDS: TAMSULOSIN 0.4 MG CAP.ER.24H PO SCH (08:39)
[2019-07-11] MEDS: ATORVASTATIN 80 MG TAB PO SCH (08:39)
[2019-07-11] MEDS: ASPIRIN 81 MG PO SCH (08:39)
[2019-07-11] MEDS: ISOSORBIDE MONONITRATE ER 30 MG TAB.ER.24H PO SCH (08:39)
[2019-07-11] MEDS: LISINOPRIL 20 MG TAB PO SCH ×2 (08:39→19:46)
--- NOTE | 2019-07-11 10:47 | ECHOF ---
Referral Reason:elevTrop MEASUREMENTS -------- HEIGHT: 180.3 cm WEIGHT: 115.2 kg BP: IVSd: 1.2 cm (0.6 - 1.1) LVIDd: 2.8 cm (3.9 - 5.3) LVPWd: 1.2 cm (0.6 - 1.1) IVSs: 1.6 cm LVIDs: 1.6 cm LVPWs: 1.6 cm LAESV Index (A-L): 43.77 ml/m Ao Diam: 3.7 cm (2.0 - 3.7) AV Cusp: 2.1 cm (1.5 - 2.6) LA Diam: 3.4 cm (2.7 - 3.8) MV EXCURSION: 11.676 mm (> 18.000) MV EF SLOPE: 189 mm/s (70 - 150) EPSS: 1.3 cm MV E Wayne: 0.83 m/s MV DecT: 150 ms MV A Wayne: 0.39 m/s MV E/A Ratio: 2.14 AR PHT: 256 ms RAP: 5.00 mmHg RVSP: 38.96 mmHg TAPSE: 26.59 mm FINDINGS -------- Sinus rhythm. This was a technically good study. The left ventricular size is normal. There is mild concentric left ventricular hypertrophy. Overa ll left ventricular systolic function is low-normal with, an EF between 50 - 55 %. Increased LAP. G rade 2 Diastolic Dysfuntion. The right ventricle is normal in size. The right ventricular systolic function is normal. LA is severely dilated >40 ml/m2 The right atrial size is normal. The aortic valve is trileaflet and appears structurally normal. The mitral valve is normal. Mild mitral regurgitation is present. The tricuspid valve appears structurally normal. Mild tricuspid regurgitation present. There is m ild pulmonary hypertension. The right ventricular systolic pressure, as measured by Doppler, is 38. 96mmHg. There is no pulmonic regurgitation present. The aortic root size is normal. Normal inferior vena cava with normal inspiratory collapse consistent with estimated right atrial pre ssure of 5 mmHg. There is no pericardial effusion. CONCLUSIONS -------- 1. Sinus rhythm. 2. This was a technically good study. 3. The left ventricular size is normal. 4. There is mild concentric left ventricular hypertrophy. 5. Overall left ventricular systolic function is low-normal with, an EF between 50 - 55 %. 6. Increased LAP. Grade 2 Diastolic Dysfuntion. 7. The right ventricle is normal in size. 8. The right ventricular systolic function is normal. 9. LA is severely dilated >40 ml/m2 10. The right atrial size is normal. 11. The aortic valve is trileaflet and appears structurally normal. 12. The mitral valve is normal. 13. Mild mitral regurgitation is present. 14. The tricuspid valve appears structurally normal. 15. Mild tricuspid regurgitation present. 16. There is mild pulmonary hypertension. 17. The right ventricular systolic pressure, as measured by Doppler, is 38.96mmHg. 18. There is no pulmonic regurgitation present. 19. The aortic root size is normal. 20. Normal inferior vena cava with normal inspiratory collapse consistent with estimated right atrial pressure of 5 mmHg. 21. There is no pericardial effusion. EQUIPMENT SPECIALIST: Mary Robison RDCS
--- NOTE | 2019-07-11 12:38 | P.PN ---
<Yahaira Leon - Last Filed: 07/11/19 12:32> Subjective Progress Note Date: 07/11/19 CHIEF COMPLAINT: Distended gallbladder HISTORY OF PRESENT ILLNESS: Patient examined this morning at the bedside. He was scheduled for HIDA scan this morning but unable to complete because he was unable to lay flat due to severe abdominal pain. Nursing reports he is receiving IV dilaudid around the clock. His pain is tolerable at the time of my examination. He denies nausea or vomiting. WBC 12.8. Bilirubin increased to 1.5. AST 22. ALT 38. Lipase 415. PHYSICAL EXAM: VITALS: Reviewed CONSTITUTIONAL: Well developed in no acute distress. EYES: Conjuctivae without sclera icterus. Pupils are equally round and reactive to light. Extraocular movements grossly intact. HEAD, EARS, NOSE, THROAT: Moist buccal mucosa. Head is atraumatic, normocephalic. Hears conversational speech. No nasal drainage. NECK: Supple. RESPIRATORY: Non-labored respirations and equal bilateral excursions. No gross wheezes. CARDIOVASCULAR: Palpable 2+ radial pulses. ABDOMEN: Soft. Nondistended. Tenderness with palpation to right upper quadrant. MUSCULOSKELETAL: Nail and fingers with good capillary refill. SKIN: Warm and well perfused with good skin turgor. NEUROLOGIC: Cranial nerves I through XII grossly intact. Sensation upper and extremities intact. No focal or lateralizing signs. PSYCH: Appropriate affect. Alert and oriented to person, place and time. Displays appropriate insight. ASSESSMENT: 1. Right upper quadrant abdominal pain and moderate to severe 2. Abnormal computed tomography scan of distending gallbladder 3. Acute pancreatitis, recurrent 4. COPD 5. Atypical chest pain with recent elevation troponins 6. Elevated bilirubin PLAN: -NPO except for ice chips and popsicles today -Repeat CBC and CMP in AM. Monitor bilirubin. -Continue to hold Eliquis -Will re-attempt HIDA scan tomorrow morning. Patient unable to have narcotics for 4 hours prior to scanning per department. Will order 2mg IV ativan for tomorrow morning prior to HIDA scan which will hopefully allow HIDA scan to be completed and patient to tolerate laying flat Nurse practitioner note has been reviewed by physician. Signing provider agrees with the documented findings, assessment, and plan of care. Objective - Vital Signs Vital signs: Vital Signs Temp 98.3 F 07/11/19 11:04 Pulse 76 12/09/19 11:04 Resp 18 07/11/19 11:04 BP 110/56 07/11/19 11:04 Pulse Ox 96 07/11/19 11:04 Intake & Output 07/10/19 07/11/19 07/11/19 18:59 06:59 18:59 Output Total 850 Balance -850 Weight 106 kg Output: Urine 850 Straight 750 Other: Voiding Method Urinal Urinal # Voids 1 - Labs CBC & Chem 7: 07/11/19 05:46 07/11/19 05:46 Labs: Abnormal Lab Results - Last 24 Hours (Table) 07/11/19 07/11/19 07/11/19 Range/Units 05:30 05:46 05:46 WBC 12.8 H (3.8-10.6) k/uL RBC 3.92 L (4.30-5.90) m/uL Hgb 12.3 L (13.0-17.5) gm/dL Hct 36.3 L (39.0-53.0) % Plt Count 117 L (150-450) k/uL Neutrophils # 10.7 H (1.3-7.7) k/uL BUN 24 H (9-20) mg/dL Glucose 122 H (74-99) mg/dL Total Bilirubin 1.5 H (0.2-1.3) mg/dL Total Protein 5.9 L (6.3-8.2) g/dL Albumin 3.2 L (3.5-5.0) g/dL Lipase (23-300) U/L Urine Protein 1+ H (Negative) Urine Blood Large H (Negative) Urine RBC >182 H (0-5) /hpf Urine WBC 15 H (0-5) /hpf Amorphous Sediment Rare H (None) /hpf Urine Mucus Rare H (None) /hpf 07/11/19 Range/Units 05:46 WBC (3.8-10.6) k/uL RBC (4.30-5.90) m/uL Hgb (13.0-17.5) gm/dL Hct (39.0-53.0) % Plt Count (150-450) k/uL Neutrophils # (1.3-7.7) k/uL BUN (9-20) mg/dL Glucose (74-99) mg/dL Total Bilirubin (0.2-1.3) mg/dL Total Protein (6.3-8.2) g/dL Albumin (3.5-5.0) g/dL Lipase 415 H (23-300) U/L Urine Protein (Negative) Urine Blood (Negative) Urine RBC (0-5) /hpf Urine WBC (0-5) /hpf Amorphous Sediment (None) /hpf Urine Mucus (None) /hpf <Ayad,Karen Janes - Last Filed: 07/11/19 18:53> Subjective Patient re-evaluated this evening. He reports his right lower quadrant and right upper quadrant abdominal pain has completely resolved. He then disclosed that 4 days ago his pain came on after eating moderate amount of fried chicken. In fact he reports previous episodes of similar abdominal pain after eating fatty greasy foods. He was not able to undergo HIDA scan secondary to pain. He reports, "I want to keep my gallbladder." Strict low fat diet described including increased fresh festivals and fruits. Recommend dietary consult. Patient high risk for surgery including high risk for recurrence with recurrent pancreatitis. Overall, patient symptoms clinically improved. Cancel HIDA scan and restart Eliquis as patient reports he wants no surgical intervention at this time. Objective - Vital Signs Vital signs: Vital Signs Temp 98.4 F 07/11/19 16:00 Pulse 73 07/11/19 16:00 Resp 18 07/11/19 16:00 BP 109/55 07/11/19 16:00 Pulse Ox 95 07/11/19 16:00 Intake & Output 07/10/19 07/11/19 07/11/19 18:59 06:59 18:59 Intake Total 1080 Output Total 850 Balance -850 1080 Weight 106 kg Intake: Intake, IV Titration 600 Amount Sodium Chloride 0.9% 1, 600 000 ml @ 100 mls/hr IV . Q10H [facility] Rx#:[id number] Oral 480 Output: Urine 850 Straight 750 Other: Voiding Method Urinal Urinal # Voids 1 - Labs CBC & Chem 7: 07/11/19 05:46 07/11/19 05:46 Labs: Abnormal Lab Results - Last 24 Hours (Table) 07/11/19 07/11/19 07/11/19 Range/Units 05:30 05:46 05:46 WBC 12.8 H (3.8-10.6) k/uL RBC 3.92 L (4.30-5.90) m/uL Hgb 12.3 L (13.0-17.5) gm/dL Hct 36.3 L (39.0-53.0) % Plt Count 117 L (150-450) k/uL Neutrophils # 10.7 H (1.3-7.7) k/uL BUN 24 H (9-20) mg/dL Glucose 122 H (74-99) mg/dL POC Glucose (mg/dL) (75-99) mg/dL Total Bilirubin 1.5 H (0.2-1.3) mg/dL Total Protein 5.9 L (6.3-8.2) g/dL Albumin 3.2 L (3.5-5.0) g/dL Lipase (23-300) U/L Urine Protein 1+ H (Negative) Urine Blood Large H (Negative) Urine RBC >182 H (0-5) /hpf Urine WBC 15 H (0-5) /hpf Amorphous Sediment Rare H (None) /hpf Urine Mucus Rare H (None) /hpf 07/11/19 07/11/19 Range/Units 05:46 16:39 WBC (3.8-10.6) k/uL RBC (4.30-5.90) m/uL Hgb (13.0-17.5) gm/dL Hct (39.0-53.0) % Plt Count (150-450) k/uL Neutrophils # (1.3-7.7) k/uL BUN (9-20) mg/dL Glucose (74-99) mg/dL POC Glucose (mg/dL) 162 H (75-99) mg/dL Total Bilirubin (0.2-1.3) mg/dL Total Protein (6.3-8.2) g/dL Albumin (3.5-5.0) g/dL Lipase 415 H (23-300) U/L Urine Protein (Negative) Urine Blood (Negative) Urine RBC (0-5) /hpf Urine WBC (0-5) /hpf Amorphous Sediment (None) /hpf Urine Mucus (None) /hpf Assessment and Plan (1) COPD (chronic obstructive pulmonary disease) Current Visit: Yes Status: Acute Code(s): J44.9 - CHRONIC OBSTRUCTIVE PULMO NARY DISEASE, UNSPECIFIED SNOMED Code(s): 97480100 (2) Right upper quadrant abdominal pain Current Visit: Yes Status: Acute Code(s): R10.11 - RIGHT UPPER QUADRANT PAIN SNOMED Code(s): 268578600 (3) Chronic cholecystitis Current Visit: Yes Status: Acute Code(s): K81.1 - CHRONIC CHOLECYSTITIS SNOMED Code(s): 39491517 (4) Acute pancreatitis Current Visit: Yes Status: Acute Code(s): K85.90 - ACUTE PANCREATITIS WITHOUT NECROSIS OR INFECTION, UNSP SNOMED Code(s): 888575584 (5) HTN (hypertension) Current Visit: Yes Status: Acute Code(s): I10 - ESSENTIAL (PRIMARY) HYPERTENSION SNOMED Code(s): 05877382 (6) Non-ST elevation myocardial infarction (NSTEMI) Current Visit: Yes Status: Acute Code(s): I21.4 - NON-ST ELEVATION (NSTEMI) MYOCARDIAL INFARCTION SNOMED Code(s): 22376505 (7) CAD (coronary artery disease) Current Visit: No Status: Acute Code(s): I25.10 - ATHSCL HEART DISEASE OF PLATIN[place] CORONARY ARTERY W/O ANG PCTRS SNOMED Code(s): 34906925 (8) Anticoagulant long-term use Current Visit: Yes Status: Acute Code(s): Z79.01 - [employer] (CURRENT) USE OF ANTICOAGULANTS SNOMED Code(s): 401011302
--- NOTE | 2019-07-11 12:51 | P.PN ---
Subjective Progress Note Date: 07/11/19 Abdominal pain Patient is a 84-year-old male with a known history of coronary artery disease with history of stent placement, history of pancreatitis, previous history of RI, hypertension, hyperlipidemia, seizure disorder, nephrolithiasis, BPH and other medical problems and obesity came to ER with complaints of abdominal pain mainly in the epigastric region and sometimes right upper quadrant.. Pain is associated with nausea. No episodes of vomiting. Patient started having symptoms since yesterday evening. Denied any radiation of the pain to the back. But patient does say that the pain is going inside the abdomen. No headache or dizziness or lightheadedness. Denied any leg swelling. No orthopnea no PND. CT angiogram showed pulmonary trunk and through lobar branches. Segmental through subsegmental branches cannot be accurately assessed. EKG on admission showed sinus rhythm. PVCs noted. Ultrasound abdomen report is pending at this time. Troponin 0.115, 0.083 and 0.080. Lipase level 1516 07 10 2019 Patient is still complaining of abdominal pain mainly in the epigastric and right upper quadrant. Ultrasound of the abdomen showed hydrops gallbladder. HIDA scan was ordered. Gen. surgery was consulted. Patient is currently nothing by mouth. Anticoagulation is on hold. Cardiology and general surgery is following. 07/11/2019 NPO, maintained on IV fluid hydration. Reports abdominal pain has shifted to only right lower quadrant abdominal pain. Denies nausea, vomiting .Early this morning bladder scanned for 750 MLS, required straight cath.,maintained on Flomax. Complains of right lower quadrant abdominal pain. Attempted HIDA scan unable to lay flat secondary to his abdominal pain. T bili increased up to 1.5. Significant improvement in lipase, down to 415. KATELYNN sc reen negative. Further recommendations per surgery pending. Afebrile, WBC elevated at 12.8. Objective - Vital Signs Vital signs: Vital Signs Temp 98.3 F 07/11/19 11:04 Pulse 76 07/11/19 11:04 Resp 18 07/11/19 11:04 BP 110/56 07/11/19 11:04 Pulse Ox 96 07/11/19 11:04 Intake & Output 07/10/19 07/11/19 07/11/19 18:59 06:59 18:59 Output Total 850 Balance -850 Weight 106 kg Output: Urine 850 Straight 750 Other: Voiding Method Urinal Urinal # Voids 1 - Exam - Exam PHYSICAL EXAMINATION: Patient is lying in the bed comfortably, mild distress due to right lower quadrant abd. pain, awake alert and oriented.. HEENT: Normocephalic. Neck is supple. Pupils reactive. Oral mucosa moist. Neck reveals no JVD, carotid bruits, or thyromegaly. CHEST EXAMINATION: Trachea is central. Symmetrical expansion. Bibasilar diminished air entry. Lung nowak clear to auscultation and percussion. CARDIAC: Normal S1, S2 with no gallops. No murmurs ABDOMEN: Soft. Obese, Right lower quadrant tenderness. No guarding no rigidity. Bowel sounds normal. No organomegaly. No abdominal bruits. Extremities: reveal no edema. No clubbing or cyanosis Neurologically awake, alert, oriented x3 with well-coordinated movements. No focal deficits noted Skin: No rash or skin lesions. Psychiatric: Coperative. Alert and oriented 2-3. - Labs CBC & Chem 7: 07/11/19 05:46 07/11/19 05:46 Labs: Abnormal Lab Results - Last 24 Hours (Table) 07/11/19 07/11/19 07/11/19 Range/Units 05:30 05:46 05:46 WBC 12.8 H (3.8-10.6) k/uL RBC 3.92 L (4.30-5.90) m/uL Hgb 12.3 L (13.0-17.5) gm/dL Hct 36.3 L (39.0-53.0) % Plt Count 117 L (150-450) k/uL Neutrophils # 10.7 H (1.3-7.7) k/uL BUN 24 H (9-20) mg/dL Glucose 122 H (74-99) mg/dL Total Bilirubin 1.5 H (0.2-1.3) mg/dL Total Protein 5.9 L (6.3-8.2) g/dL Albumin 3.2 L (3.5-5.0) g/dL Lipase (23-300) U/L Urine Protein 1+ H (Negative) Urine Blood Large H (Negative) Urine RBC >182 H (0-5) /hpf Urine WBC 15 H (0-5) /hpf Amorphous Sediment Rare H (None) /hpf Urine Mucus Rare H (None) /hpf 12/09/19 Range/Units 05:46 WBC (3.8-10.6) k/uL RBC (4.30-5.90) m/uL Hgb (13.0-17.5) gm/dL Hct (39.0-53.0) % Plt Count (150-450) k/uL Neutrophils # (1.3-7.7) k/uL BUN (9-20) mg/dL Glucose (74-99) mg/dL Total Bilirubin (0.2-1.3) mg/dL Total Protein (6.3-8.2) g/dL Albumin (3.5-5.0) g/dL Lipase 415 H (23-300) U/L Urine Protein (Negative) Urine Blood (Negative) Urine RBC (0-5) /hpf Urine WBC (0-5) /hpf Amorphous Sediment (None) /hpf Urine Mucus (None) /hpf Assessment and Plan Assessment: Epigastric abdominal pain secondary to acute recurrent pancreatitis, etiology unclear, possibly gallbladder related. Hydrops gallbladder. Rule out acute cholecystitis. Unable to complete HIDA scan, could not lie flat Hyperbilirubinemia Atypical chest pain, in a patient with history of CAD, RI, stent placement. Ruled out ACS. Cardiology following Urinary retention COPD, stable History of DVT/PE in the past. CT angiogram is negative for pulmonary embolism currently. Hypertension Hyperlipidemia Seizure disorder Hyperlipidemia Obesity with BMI 32.9 DVT prophylaxis with heparin subcu Plan: Continue on current medication regime ,monitoring and symptomatic t reatment.NPO, continue on IV fluid hydration, Flomax. Close monitoring of LFTs, coags with repeat labs ordered for a.m. Post void residuals/bladder scan. HIDA scan to be reattempted tomorrow .pain management. Follow closely with GI, surgery, cardiology. Further recommendations to follow. The impression and plan of care has been dictated as directed. : I performed a history and examination of this patient, discussed the same with the dictator. I agree with the dictator's note ,documented as a scribe. Any additional findings or plans will be noted.
--- NOTE | 2019-07-11 12:59 | P.PN ---
Subjective Progress Note Date: 07/11/19 This is a pleasant 84-year-old gentleman who follows with Dr. Jimenes in the office. He has a history of CAD, previous [place], PE, hypertension, hyperlipidemia, COPD. Presented to the emergency department with complaints of epigastric and right upper quadrant discomfort that had no relieving factors with tenderness to palpation and associated shortness of breath and nausea. According to the patient the symptoms were quite different compared to symptoms he had with his MIs in the past. CT of the chest was done due to history of PEs which was significantly limited due to respiratory motion but showed no filling defect to suggest pulmonary embolism in the pulmonary trunk through the lobar branches but segmental through subsegmental branches could not accurately be assessed. EKG on presentation to the emergency department was of poor quality showed sinus rhythm with PVC however not adequately able to assess for any ST or T-wave abnormalities. Repeat EKG this morning showed sinus rhythm without ST-T wave abnormalities. Computed tomography scan of the abdomen and pelvis showed small amount of free fluid within the abdomen which is primarily centered around a distended gallbladder, no calcified gallstones visualized, correlation with laboratory values is recommended, colonic diverticulosis without findings of diverticulitis. Ultrasound of the gallbladder showed distended gallbladder, no evidence of cholelithiasis or ultrasonography findings of acute cholecystitis, common bile duct is nondilated. A hepatobiliary scan was attempted yesterday however patient refused to have the entire procedure performed. He did have an echocardiogram with Doppler study which showed a normal left ventricular systolic function. Blood pressure 110/60 with a heart rate in the 70s. White blood cell count 12.8, hemoglobin 12.3, platelet count 117. Sodium 139, potassium 4.0, BUN 24, creatinine 0.7. Total bilirubin 1.5 Objective - Vital Signs Vital signs: Vital Signs Temp 98.3 F 07/11/19 11:04 Pulse 76 07/11/19 11:04 Resp 18 07/11/19 11:04 BP 110/56 07/11/19 11:04 Pulse Ox 96 07/11/19 11:04 Intake & Output 07/10/19 07/11/19 07/11/19 18:59 06:59 18:59 Output Total 850 Balance -850 Weight 106 kg Output: Urine 850 Straight 750 Other: Voiding Method Urinal Urinal # Voids 1 - Exam PHYSICAL EXAMINATION: HEENT: Head is atraumatic, normocephalic. Pupils equal, round. Neck is supple. There is no elevated jugular venous pressure. No carotid bruit. HEART EXAMINATION: Heart sounds regular, S1 and S2 with a systolic murmur. CHEST EXAMINATION: Lungs no expiratory wheezing throughout. No chest wall tenderness is noted on palpation or with deep breathing. ABDOMEN: Soft, right lower quadrant and tenderness. Bowel sounds are heard. EXTREMITIES: 2+ peripheral pulses with no evidence of peripheral edema and no calf tenderness noted. NEUROLOGIC patient is awake, alert and oriented x3. - Labs CBC & Chem 7: 07/11/19 05:46 07/11/19 05:46 Labs: Abnormal Lab Results - Last 24 Hours (Table) 07/11/19 07/11/19 07/11/19 Range/Units 05:30 05:46 05:46 WBC 12.8 H (3.8-10.6) k/uL RBC 3.92 L (4.30-5.90) m/uL Hgb 12.3 L (13.0-17.5) gm/dL Hct 36.3 L (39.0-53.0) % Plt Count 117 L (150-450) k/uL Neutrophils # 10.7 H (1.3-7.7) k/uL BUN 24 H (9-20) mg/dL Glucose 122 H (74-99) mg/dL Total Bilirubin 1.5 H (0.2-1.3) mg/dL Total Protein 5.9 L (6.3-8.2) g/dL Albumin 3.2 L (3.5-5.0) g/dL Lipase (23-300) U/L Urine Protein 1+ H (Negative) Urine Blood Large H (Negative) Urine RBC >182 H (0-5) /hpf Urine WBC 15 H (0-5) /hpf Amorphous Sediment Rare H (None) /hpf Urine Mucus Rare H (None) /hpf 07/11/19 Range/Units 05:46 WBC (3.8-10.6) k/uL RBC (4.30-5.90) m/uL Hgb (13.0-17.5) gm/dL Hct (39.0-53.0) % Plt Count (150-450) k/uL Neutrophils # (1.3-7.7) k/uL BUN (9-20) mg/dL Glucose (74-99) mg/dL Total Bilirubin (0.2-1.3) mg/dL Total Protein (6.3-8.2) g/dL Albumin (3.5-5.0) g/dL Lipase 415 H (23-300) U/L Urine Protein (Negative) Urine Blood (Negative) Urine RBC (0-5) /hpf Urine WBC (0-5) /hpf Amorphous Sediment (None) /hpf Urine Mucus (None) /hpf Assessment and Plan Plan: Assessment and Plan Assessment: #1 acute pancreatitis with evidence of gallbladder distention and symptoms of epigastric and right upper quadrant pain #2 troponin elevation, not consistent with acute coronary syndrome. Echo reveals normal left ventricular systolic function. #3 history of CAD #4 hypertension #5 hyperlipidemia #6 COPD Plan From cardiology's perspective we'll recommend to continue this patient on his current medication. We will continue to follow him along with you during the duration of his stay. DNP note has been reviewed, I agree with a documented findings and plan of care. Patient was seen and examined.
[2019-07-11 16:52] LABS: Glucose,Whole Blood 162 mg/dL (75-99)
[2019-07-12] MEDS: HYDROmorphone 1 MG/ML 1 ML SYRINGE IVP PRN ×3 (01:49→21:39)
[2019-07-12] MEDS: SODIUM CHLORIDE 0.9% 1,000 ML IV SCH ×2 (04:19→17:11)
[2019-07-12 06:05] LABS: Basophils % (A) 0 %; Eosinophils # (A) 0.1 k/uL (0-0.7); Eosinophils % (A) 1 %; HCT 31.6 % (39.0-53.0); HGB 11.1 gm/dL (13.0-17.5); Lymphocytes % (A) 12 %; MCH 32.4 pg (25.0-35.0); MCHC 35.1 g/dL (31.0-37.0); MCV 92.3 fL (80.0-100.0); Mean Platelet Volume 8.1; Monocytes # (A) 0.5 k/uL (0-1.0); Monocytes % (A) 6 %; Neutrophils # (A) 6.6 k/uL (1.3-7.7); Neutrophils % (A) 80 %; Platelet Count 102 k/uL (150-450); RBC 3.42 m/uL (4.30-5.90); RDW 13.7 % (11.5-15.5); WBC 8.2 k/uL (3.8-10.6)
[2019-07-12 06:18] LABS: ALT 32 U/L (21-72); AST 35 U/L (17-59); African American GFR (CKD) >90 (>60 ml/min/1.73 sqM); Alkaline Phosphatase 90 U/L (38-126); Anion Gap 6 mmol/L; Blood Urea Nitrogen 16 mg/dL (9-20); Calcium 8.2 mg/dL (8.4-10.2); Carbon Dioxide 25 mmol/L (22-30); Chloride 108 mmol/L (98-107); Glucose 129 mg/dL (74-99); Non-African American GFR(CKD) >90 (>60 ml/min/1.73 sqM); Potassium 3.5 mmol/L (3.5-5.1); Sodium 139 mmol/L (137-145); Total Bilirubin 1.3 mg/dL (0.2-1.3); Total Protein 5.6 g/dL (6.3-8.2)
[2019-07-12] MEDS: PANTOPRAZOLE 40 MG TABLET PO SCH (06:22)
[2019-07-12] MEDS: CARVEDILOL 12.5 MG TAB PO SCH ×2 (06:22→18:09)
[2019-07-12] MEDS ORDERED: LORazepam 2 MG/ML INJ IV ONE (06:30)
--- NOTE | 2019-07-12 10:28 | NM ---
EXAMINATION TYPE: NM hepatobiliary wo EF DATE OF EXAM: 07/12/2019 COMPARISON: CT dated 07/09/2019 and ultrasound dated 07/09/2019 HISTORY: Abdominal pain TECHNIQUE: After the intravenous administration of 5.3 mCi Tc 99m Mebrofenin hepatobiliary scintigrap hy is performed. Immediate images post injection. FINDINGS: The gallbladder is not seen despite delayed 2 hour images. The patient could no longer tolerate the e xamination. Photopenic defect is seen in the gallbladder fossa with focal accumulation at the common hepatic duct. There is a photopenic defect in the left hepatic lobe originally from overlying leads t hat was removed and the lungs are seen on delayed images. Small bowel is seen at the beginning of the examination as the patient began a HIDA scan yesterday as well that was canceled due to patient into lerance. There is slight limitation as there is inability to obtain 4 hour delayed images. IMPRESSION: Overall findings are compatible with acute cystitis.
[2019-07-12] MEDS: PHENYTOIN SODIUM EXTENDED 100 MG CAP PO SCH ×3 (11:19→21:39)
[2019-07-12] MEDS: TAMSULOSIN 0.4 MG CAP.ER.24H PO SCH (11:19)
[2019-07-12] MEDS: ASPIRIN 81 MG PO SCH (11:19)
[2019-07-12] MEDS: ISOSORBIDE MONONITRATE ER 30 MG TAB.ER.24H PO SCH (11:20)
[2019-07-12] MEDS: ALLOPURINOL 300 MG TAB PO SCH (11:20)
[2019-07-12] MEDS: ATORVASTATIN 80 MG TAB PO SCH (11:20)
[2019-07-12] MEDS: LISINOPRIL 20 MG TAB PO SCH ×2 (11:20→21:39)
--- NOTE | 2019-07-12 13:30 | P.PN ---
Subjective Progress Note Date: 07/12/19 This is a pleasant 84-year-old gentleman who follows with Dr. Jimenes in the office. He has a history of CAD, previous [place], PE, hypertension, hyperlipidemia, COPD. Presented to the emergency department with complaints of epigastric and right upper quadrant discomfort that had no relieving factors with tenderness to palpation and associated shortness of breath and nausea. According to the patient the symptoms were quite different compared to symptoms he had with his MIs in the past. CT of the chest was done due to history of PEs which was significantly limited due to respiratory motion but showed no filling defect to suggest pulmonary embolism in the pulmonary trunk through the lobar branches but segmental through subsegmental branches could not accurately be assessed. EKG on presentation to the emergency department was of poor quality showed sinus rhythm with PVC however not adequately able to assess for any ST or T-wave abnormalities. Repeat EKG this morning showed sinus rhythm without ST-T wave abnormalities. Computed tomography scan of the abdomen and pelvis showed small amount of free fluid within the abdomen which is primarily centered around a distended gallbladder, no calcified gallstones visualized, correlation with laboratory values is recommended, colonic diverticulosis without findings of diverticulitis. Ultrasound of the gallbladder showed distended gallbladder, no evidence of cholelithiasis or ultrasonography findings of acute cholecystitis, common bile duct is nondilated. A hepatobiliary scan was attempted yesterday however patient refused to have the entire procedure performed. He did have an echocardiogram with Doppler study which showed a normal left ventricular systolic function. Blood pressure 110/60 with a heart rate in the 70s. White blood cell count 12.8, hemoglobin 12.3, platelet count 117. Sodium 139, potassium 4.0, BUN 24, creatinine 0.7. Total bilirubin 1.5 07/12/2019 Patient did ultimately undergo a hepatobiliary scan which revealed acute cholecystitis. Blood pressure 152/80 with a heart rate in the 60s to 70s, 98% on 2 L of oxygen. White blood cell count 8.2, hemoglobin 11.1, platelet count 102. Sodium 139, potassium 3.5, BUN 16, creatinine 0.6. Objective - Vital Signs Vital signs: Vital Signs Temp 98.1 F 07/12/19 08:00 Pulse 72 07/12/19 08:00 Resp 18 07/12/19 08:00 BP 157/85 07/12/19 08:00 Pulse Ox 98 07/12/19 08:00 Intake & Output 07/11/19 07/12/19 07/12/19 18:59 06:59 18:59 Intake Total 1080 Output Total 400 500 Balance 1080 -400 -500 Weight 107.5 kg Intake: Intake, IV Titration 600 Amount Sodium Chloride 0.9% 1, 600 000 ml @ 100 mls/hr IV . Q10H [facility] Rx#:[id number] Oral 480 Output: Urine 400 500 Other: Voiding Method Urinal Indwelling Catheter Indwelling Catheter - Exam PHYSICAL EXAMINATION: HEENT: Head is atraumatic, normocephalic. Pupils equal, round. Neck is supple. There is no elevated jugular venous pressure. No carotid bruit. HEART EXAMINATION: Heart sounds regular, S1 and S2 with a systolic murmur. CHEST EXAMINATION: Lungs no expiratory wheezing throughout. No chest wall tender ness is noted on palpation or with deep breathing. ABDOMEN: Soft, right lower quadrant and tenderness. Bowel sounds are heard. EXTREMITIES: 2+ peripheral pulses with no evidence of peripheral edema and no calf tenderness noted. NEUROLOGIC patient is awake, alert and oriented x3. - Labs CBC & Chem 7: 07/12/19 05:43 07/12/19 05:43 Labs: Abnormal Lab Results - Last 24 Hours (Table) 07/11/19 07/12/19 07/12/19 Range/Units 16:39 05:43 05:43 RBC 3.42 L (4.30-5.90) m/uL Hgb 11.1 L (13.0-17.5) gm/dL Hct 31.6 L (39.0-53.0) % Plt Count 102 L (150-450) k/uL Chloride 108 H (98-107) mmol/L Creatinine 0.62 L (0.66-1.25) mg/dL Glucose 129 H (74-99) mg/dL POC Glucose (mg/dL) 162 H (75-99) mg/dL Calcium 8.2 L (8.4-10.2) mg/dL Total Protein 5.6 L (6.3-8.2) g/dL Albumin 3.0 L (3.5-5.0) g/dL Assessment and Plan Plan: Assessment and Plan Assessment: #1 acute pancreatitis with evidence of gallbladder distention and symptoms of epigastric and right upper quadrant pain #2 troponin elevation, not consistent with acute coronary syndrome. Echo reveals normal left ventricular systolic function. #3 history of CAD #4 hypertension #5 hyperlipidemia #6 COPD Plan From cardiology's perspective we'll recommend to continue this patient on his current medication. We will continue to follow him along with you during the duration of his stay. DNP note has been reviewed, I agree with a documented findings and plan of care. Patient was seen and examined.
--- NOTE | 2019-07-12 14:13 | P.PN ---
Subjective Progress Note Date: 07/12/19 Abdominal pain Patient is a 84-year-old male with a known history of coronary artery disease with history of stent placement, history of pancreatitis, previous history of UT, hypertension, hyperlipidemia, seizure disorder, nephrolithiasis, BPH and other medical problems and obesity came to ER with complaints of abdominal pain mainly in the epigastric region and sometimes right upper quadrant.. Pain is associated with nausea. No episodes of vomiting. Patient started having symptoms since yesterday evening. Denied any radiation of the pain to the back. But patient does say that the pain is going inside the abdomen. No headache or dizziness or lightheadedness. Denied any leg swelling. No orthopnea no PND. CT angiogram showed pulmonary trunk and through lobar branches. Segmental through subsegmental branches cannot be accurately assessed. EKG on admission showed sinus rhythm. PVCs noted. Ultrasound abdomen report is pending at this time. Troponin 0.115, 0.083 and 0.080. Lipase level 1516 07 10 2019 Patient is still complaining of abdominal pain mainly in the epigastric and right upper quadrant. Ultrasound of the abdomen showed hydrops gallbladder. HIDA scan was ordered. Gen. surgery was consulted. Patient is currently nothing by mouth. Anticoagulation is on hold. Cardiology and general surgery is following. 07/11/2019 NPO, maintained on IV fluid hydration. Reports abdominal pain has shifted to only right lower quadrant abdominal pain. Denies nausea, vomiting .Early this morning bladder scanned for 750 MLS, required straight cath.,maintained on Flomax. Complains of right lower quadrant abdominal pain. Attempted HIDA scan unable to lay flat secondary to his abdominal pain. T bili increased up to 1.5. Significant improvement in lipase, down to 415. KATELYNN sc reen negative. Further recommendations per surgery pending. Afebrile, WBC elevated at 12.8. 07/12/2019 continues on IV fluid hydration, NPO. Repeat of HIDA scan scheduled for this morning. Afebrile, normal WBC. LFTs within normal limits, including total bili, 1.3. Lipase has normalized. KATELYNN screen negative. Denies abdominal pain this morning. Mann catheter placed yesterday for urinary retention. Objective - Vital Signs Vital signs: Vital Signs Temp 98.1 F 07/12/19 03:00 Pulse 68 07/12/19 03:00 Resp 18 07/12/19 03:00 BP 153/82 07/12/19 03:00 Pulse Ox 94 L 07/12/19 03:00 Intake & Output 07/11/19 07/12/19 07/12/19 18:59 06:59 18:59 Intake Total 1080 Output Total 400 Balance 1080 -400 Weight 107.5 kg Intake: Intake, IV Titration 600 Amount Sodium Chloride 0.9% 1, 600 000 ml @ 100 mls/hr IV . Q10H [facility] Rx#:[id number] Oral 480 Output: Urine 400 Other: Voiding Method Urinal Indwelling Catheter - Exam - Exam PHYSICAL EXAMINATION: GENERAL: Patient is sitting up in bed, no acute distress. HEENT: Normocephalic. Neck is supple. Pupils reactive. Oral mucosa moist. Neck reveals no JVD, carotid bruits, or thyromegaly. CHEST EXAMINATION: Trachea is central. Symmetrical expansion. Bibasilar diminished air entry. Lung nowak clear to auscultation and percussion. CARDIAC: Normal S1, S2 with no gallops. No murmurs ABDOMEN: Soft. Obese, non-distended, nontender No guarding no rigidity. Bowel sounds normal. No organomegaly. Extremities: reveal no edema. No clubbing or cyanosis Neurologically awake, alert, oriented x2 with well-coordinated movements. No focal deficits noted Skin: No rash or skin lesions. - Labs CBC & Chem 7: 07/12/19 05:43 07/12/19 05:43 Labs: Abnormal Lab Results - Last 24 Hours (Table) 07/11/19 07/12/19 07/12/19 Range/Units 16:39 05:43 05:43 RBC 3.42 L (4.30-5.90) m/uL Hgb 11.1 L (13.0-17.5) gm/dL Hct 31.6 L (39.0-53.0) % Plt Count 102 L (150-450) k/uL Chloride 108 H (98-107) mmol/L Creatinine 0.62 L (0.66-1.25) mg/dL Glucose 129 H (74-99) mg/dL POC Glucose (mg/dL) 162 H (75-99) mg/dL Calcium 8.2 L (8.4-10.2) mg/dL Total Protein 5.6 L (6.3-8.2) g/dL Albumin 3.0 L (3.5-5.0) g/dL Assessment and Plan Assessment: Epigastric abdominal pain secondary to acute recurrent pancreatitis, etiology unclear, possibly gallbladder related. Hydrops gallbladder. Rule out acute cholecystitis. Unable to complete HIDA scan, could not lie flat Hyperbilirubinemia Atypical chest pain, in a patient with history of CAD, UT, stent placement. Ruled out ACS. Cardiology following Urinary retention COPD, stable History of DVT/PE in the past. CT angiogram is negative for pulmonary embolism currently. Hypertension Hyperlipidemia Seizure disorder Hyperlipidemia Obesity with BMI 32.9 DVT prophylaxis with heparin subcu Plan: Continue on current medication regime ,monitoring and symptomatic treatment.NPO, continue on IV fluid hydration, Flomax. Repeat HIDA scan pending . Follow closely with GI, surgery, cardiology. Further recommendations to follow. The impression and plan of care has been dictated as directed. : I performed a history and examination of this patient, discussed the same with the dictator. I agree with the dictator's note ,documented as a scribe. Any additional findings or plans will be noted.
--- NOTE | 2019-07-12 15:03 | P.PN ---
Progress Note - Text Progress Note Date: 07/12/19 Patient off the floor during rounds for HIDA scan. HIDA scan reveals acute cholecystitis. Discussed with Dr. Lion. Continue to hold Eliquis. Patient may have a low-fat diet. He will be tentatively scheduled for robotic cholecystectomy July Dr. Lion to evaluate patient this afternoon
[2019-07-12] MEDS ORDERED: LIDOCAINE URO-JET JELLY 2% 5 ML KIT URETHRAL ONE (20:52)
--- NOTE | 2019-07-12 20:55 | P.PN ---
Subjective Progress Note Date: 07/12/19 CHIEF COMPLAINT: Distended gallbladder HISTORY OF PRESENT ILLNESS: The patient is a 84 year old male who came in initially with atypical chest pain and epigastric abdominal pain. Yesterday, he reports his pain started after eating moderate amount of fried chicken. "I love [place]antiago chicken.". Today he's more confused. He reports wanting to walk to the window. Nursing also notes that he has tried to pull his Mann catheter and was given Ativan. He completed his HIDA scan that now confirms acute cholecystitis. He has been on clear liquid diet. As a result, abdominal pain has improved with the avoidance of fat. He also reports troubles with urinating. REVIEW OF ORGAN SYSTEMS: No fevers or chills. His more confused. Has urinary retention PHYSICAL EXAM: VITALS: Reviewed CONSTITUTIONAL: Well developed and in mild distress secondary to right upper quadrant pain EYES: Conjuctivae without sclera icterus. Pupils are equally round and reactive to light. Extraocular movements grossly intact. HEAD, EARS, NOSE, THROAT: Moist buccal mucosa. Head is atraumatic, normocephalic. Hears conversational speech. No nasal drainage. RESPIRATORY: Non-labored respirations and equal bilateral excursions. No gross wheezes. CARDIOVASCULAR: Palpable 2+ radial pulses. ABDOMEN: Soft. Non-tender. Nondistended. MUSCULOSKELETAL: Nail and fingers with good capillary refill. SKIN: Warm and well perfused with good skin turgor. NEUROLOGIC: Cranial nerves I through XII grossly intact. Sensation upper and extremities intact. No focal or lateralizing signs. PSYCH: Appropriate affect. Alert and oriented to person, place and time. Displays appropriate insight. CLINCAL LABS: Reviewed. Lipase elevated over 1500 now down to normal. REPORTS: HIDA scan confirms now visualization of the gallbladder consistent with acute cholecystitis ASSESSMENT: 1. Right upper quadrant abdominal pain and moderate to severe 2. Abnormal computed tomography scan of distending gallbladder 3. Acute pancreatitis, recurrent 4. COPD 5. Atypical chest pain with recent elevation troponins 6. Acute cholecystitis per nuclear study 7. Acute urinary retention PLAN: 1. Hold anticoagulant. 2. I did review with him that his gallbladder shows acute cholecystitis and will need removal with his recurrent attacks and pancreatitis. 3. Recommend surgical intervention pending cardiac clearance 4. Recommend urology consultation for acute urinary retention Objective - Vital Signs Vital signs: Vital Signs Temp 98.4 F 07/12/19 19:55 Pulse 71 07/12/19 19:55 Resp 18 07/12/19 19:55 BP 145/77 07/12/19 19:55 Pulse Ox 98 07/12/19 19:55 Intake & Output 07/12/19 07/12/19 07/13/19 06:59 18:59 06:59 Output Total 400 500 Balance -400 -500 Weight 107.5 kg Output: Urine 400 500 Other: Voiding Method Indwelling Catheter Urinal Urinal - Labs CBC & Chem 7: 07/12/19 05:43 07/12/19 05:43 Labs: Abnormal Lab Results - Last 24 Hours (Table) 07/12/19 07/12/19 Range/Units 05:43 05:43 RBC 3.42 L (4.30-5.90) m/uL Hgb 11.1 L (13.0-17.5) gm/dL Hct 31.6 L (39.0-53.0) % Plt Count 102 L (150-450) k/uL Chloride 108 H (98-107) mmol/L Creatinine 0.62 L (0.66-1.25) mg/dL Glucose 129 H (74-99) mg/dL Calcium 8.2 L (8.4-10.2) mg/dL Total Protein 5.6 L (6.3-8.2) g/dL Albumin 3.0 L (3.5-5.0) g/dL Assessment and Plan (1) COPD (chronic obstructive pulmonary disease) Current Visit: Yes Status: Acute Code(s): J44.9 - CHRONIC OBSTRUCTIVE PULMONARY DISEASE, UNSPECIFIED SNOMED Code(s): 67909105 (2) Right upper quadrant abdominal pain Current Visit: Yes Status: Acute Code(s): R10.11 - RIGHT UPPER QUADRANT PAIN SNOMED Code(s): 931759836 (3) Chronic cholecystitis Current Visit: Yes Status: Acute Code(s): K81.1 - CHRONIC CHOLECYSTITIS SNOMED Code(s): 38286226 (4) Acute pancreatitis Current Visit: Yes Status: Acute Code(s): K85.90 - ACUTE PANCREATITIS WITHOUT NECROSIS OR INFECTION, UNSP SNOMED Code(s): 439843945 (5) HTN (hypertension) Current Visit: Yes Status: Acute Code(s): I10 - ESSENTIAL (PRIMARY) HYPERTENSION SNOMED Code(s): 29965577 (6) Non-ST elevation myocardial infarction (NSTEMI) Current Visit: Yes Status: Acute Code(s): I21.4 - NON-ST ELEVATION (NSTEMI) MYOCARDIAL INFARCTION SNOMED Code(s): 94492181 (7) CAD (coronary artery disease) Current Visit: No Status: Acute Code(s): I25.10 - ATHSCL HEART DISEASE OF CIRCLE CORONARY ARTERY W/O ANG PCTRS SNOMED Code(s): 24086464 (8) Anticoagulant long-term use Current Visit: Yes Status: Acute Code(s): Z79.01 - SENIOR CARE (CURRENT) USE OF ANTICOAGULANTS SNOMED Code(s): 245908918 (9) Acute urinary retention Current Visit: Yes Status: Acute Code(s): R33.8 - OTHER RETENTION OF URINE SNOMED Code(s): 035880156 (10) Acute cholecystitis Current Visit: Yes Status: Acute Code(s): K81.0 - ACUTE CHOLECYSTITIS SNOMED Code(s): 20692867
[2019-07-12] MEDS ORDERED: LORazepam 2 MG/ML INJ IV STA (21:23)
[2019-07-13] MEDS: HYDROmorphone 1 MG/ML 1 ML SYRINGE IVP PRN (03:24)
[2019-07-13] MEDS: SODIUM CHLORIDE 0.9% 1,000 ML IV SCH ×3 (05:58→21:00)
[2019-07-13] MEDS: CARVEDILOL 12.5 MG TAB PO SCH ×2 (06:18→18:30)
[2019-07-13] MEDS: PANTOPRAZOLE 40 MG TABLET PO SCH (06:18)
[2019-07-13 09:24] LABS: Basophils % (A) 0 %; Eosinophils # (A) 0.1 k/uL (0-0.7); Eosinophils % (A) 1 %; HCT 32.2 % (39.0-53.0); HGB 11.2 gm/dL (13.0-17.5); Lymphocytes # (A) 0.8 k/uL (1.0-4.8); Lymphocytes % (A) 12 %; MCH 31.9 pg (25.0-35.0); MCHC 34.6 g/dL (31.0-37.0); MCV 92.2 fL (80.0-100.0); Mean Platelet Volume 7.9; Monocytes # (A) 0.4 k/uL (0-1.0); Monocytes % (A) 5 %; Neutrophils # (A) 5.2 k/uL (1.3-7.7); Neutrophils % (A) 80 %; Platelet Count 122 k/uL (150-450); RDW 13.8 % (11.5-15.5); WBC 6.5 k/uL (3.8-10.6)
[2019-07-13 09:25] LABS: African American GFR (CKD) >90 (>60 ml/min/1.73 sqM); Anion Gap 8 mmol/L; Blood Urea Nitrogen 14 mg/dL (9-20); Calcium 8.2 mg/dL (8.4-10.2); Carbon Dioxide 25 mmol/L (22-30); Chloride 108 mmol/L (98-107); Glucose 155 mg/dL (74-99); Non-African American GFR(CKD) >90 (>60 ml/min/1.73 sqM); Potassium 3.5 mmol/L (3.5-5.1); Sodium 141 mmol/L (137-145)
[2019-07-13] MEDS: PHENYTOIN SODIUM EXTENDED 100 MG CAP PO SCH ×2 (09:26→18:30)
[2019-07-13] MEDS: ASPIRIN 81 MG PO SCH (09:26)
[2019-07-13] MEDS: ISOSORBIDE MONONITRATE ER 30 MG TAB.ER.24H PO SCH (09:26)
[2019-07-13] MEDS: TAMSULOSIN 0.4 MG CAP.ER.24H PO SCH (09:26)
[2019-07-13] MEDS: LISINOPRIL 20 MG TAB PO SCH ×2 (09:26→21:08)
[2019-07-13] MEDS: ALLOPURINOL 300 MG TAB PO SCH (09:26)
[2019-07-13] MEDS: ATORVASTATIN 80 MG TAB PO SCH (09:26)
--- NOTE | 2019-07-13 14:03 | P.PN ---
Subjective Progress Note Date: 07/13/19 CHIEF COMPLAINT: Distended gallbladder HISTORY OF PRESENT ILLNESS: Patient examined this morning at the bedside. Patient reports that abdominal pain is tolerable. He is tolerating diet. Denies nausea or vomiting. Vital signs stable. He is afebrile. WBC 6.5. Hemoglobin 11.2. PHYSICAL EXAM: VITALS: Reviewed CONSTITUTIONAL: Well developed in no acute distress. EYES: Conjuctivae without sclera icterus. Pupils are equally round and reactive to light. Extraocular movements grossly intact. HEAD, EARS, NOSE, THROAT: Moist buccal mucosa. Head is atraumatic, normocephalic. Hears conversational speech. No nasal drainage. NECK: Supple. RESPIRATORY: Non-labored respirations and equal bilateral excursions. No gross wheezes. CARDIOVASCULAR: Palpable 2+ radial pulses. ABDOMEN: Soft. Nondistended. Tenderness with palpation to right upper quadrant. MUSCULOSKELETAL: Nail and fingers with good capillary refill. SKIN: Warm and well perfused with good skin turgor. NEUROLOGIC: Cranial nerves I through XII grossly intact. Sensation upper and extremities intact. No focal or lateralizing signs. PSYCH: Appropriate affect. Alert and oriented to person, place and time. Displays appropriate insight. ASSESSMENT: 1. Right upper quadrant abdominal pain and moderate to severe 2. Abnormal computed tomography scan of distending gallbladder 3. Acute pancreatitis, recurrent 4. COPD 5. Atypical chest pain with recent elevation troponins 6. Elevated bilirubin 7. Acute cholecystitis 8. Urinary retention PLAN: -Continue current diet. NPO at midnight. -Continue to hold Eliquis -Patient scheduled for robotic cholecystectomy tomorrow with Dr. Lion Nurse practitioner note has been reviewed by physician. Signing provider agrees with the documented findings, assessment, and plan of care. Objective - Vital Signs Vital signs: Vital Signs Temp 98.2 F 07/13/19 12:00 Pulse 70 07/13/19 12:00 Resp 18 07/13/19 12:00 BP 159/80 07/13/19 12:00 Pulse Ox 98 07/13/19 12:00 Intake & Output 07/12/19 07/13/19 07/13/19 18:59 06:59 18:59 Intake Total 118 Output Total 500 670 Balance -500 -670 118 Weight 111.7 kg Intake: Oral 118 Output: Urine 500 670 Other: Voiding Method Urinal Urinal Indwelling Catheter # Voids 1 - Labs CBC & Chem 7: 07/13/19 08:58 12 08:58 Labs: Abnormal Lab Results - Last 24 Hours (Table) 07/13/19 07/13/19 Range/Units 08:58 08:58 RBC 3.50 L (4.30-5.90) m/uL Hgb 11.2 L (13.0-17.5) gm/dL Hct 32.2 L (39.0-53.0) % Plt Count 122 L (150-450) k/uL Lymphocytes # 0.8 L (1.0-4.8) k/uL Chloride 108 H (98-107) mmol/L Creatinine 0.60 L (0.66-1.25) mg/dL Glucose 155 H (74-99) mg/dL Calcium 8.2 L (8.4-10.2) mg/dL
--- NOTE | 2019-07-13 14:23 | P.PN ---
Subjective Progress Note Date: 07/13/19 Abdominal pain Patient is a 84-year-old male with a known history of coronary artery disease with history of stent placement, history of pancreatitis, previous history of VA, hypertension, hyperlipidemia, seizure disorder, nephrolithiasis, BPH and other medical problems and obesity came to ER with complaints of abdominal pain mainly in the epigastric region and sometimes right upper quadrant.. Pain is associated with nausea. No episodes of vomiting. Patient started having symptoms since yesterday evening. Denied any radiation of the pain to the back. But patient does say that the pain is going inside the abdomen. No headache or dizziness or lightheadedness. Denied any leg swelling. No orthopnea no PND. CT angiogram showed pulmonary trunk and through lobar branches. Segmental through subsegmental branches cannot be accurately assessed. EKG on admission showed sinus rhythm. PVCs noted. Ultrasound abdomen report is pending at this time. Troponin 0.115, 0.083 and 0.080. Lipase level 1516 07 10 2019 Patient is still complaining of abdominal pain mainly in the epigastric and right upper quadrant. Ultrasound of the abdomen showed hydrops gallbladder. HIDA scan was ordered. Gen. surgery was consulted. Patient is currently nothing by mouth. Anticoagulation is on hold. Cardiology and general surgery is following. 07/11/2019 NPO, maintained on IV fluid hydration. Reports abdominal pain has shifted to only right lower quadrant abdominal pain. Denies nausea, vomiting .Early this morning bladder scanned for 750 MLS, required straight cath.,maintained on Flomax. Complains of right lower quadrant abdominal pain. Attempted HIDA scan unable to lay flat secondary to his abdominal pain. T bili increased up to 1.5. Significant improvement in lipase, down to 415. KATELYNN sc reen negative. Further recommendations per surgery pending. Afebrile, WBC elevated at 12.8. 07/12/2019 continues on IV fluid hydration, NPO. Repeat of HIDA scan scheduled for this morning. Afebrile, normal WBC. LFTs within normal limits, including total bili, 1.3. Lipase has normalized. KATELYNN screen negative. Denies abdominal pain this morning. Mann catheter placed yesterday for urinary retention. 07/13/2019 lethargic from receiving Dilaudid and Ativan throughout the night. Denies nausea, vomiting. Denies abdominal pain. Mann inserted yesterday for urinary retention. HIDA scan suboptimal, reporting overall findings compatible with acute cystitis Evaluated by surgery, scheduled for cholecystectomy tomorrow. Afebrile, normal WBC. Objective - Vital Signs Vital signs: Vital Signs Temp 98.0 F 07/13/19 03:26 Pulse 91 07/13/19 03:26 Resp 18 07/13/19 03:26 BP 158/79 07/13/19 03:26 Pulse Ox 95 07/13/19 03:26 Intake & Output 07/12/19 07/13/19 07/13/19 18:59 06:59 18:59 Output Total 500 670 Balance -500 -670 Weight 111.7 kg Output: Urine 500 670 Other: Voiding Method Urinal Urinal # Voids 1 - Exam - Exam PHYSICAL EXAMINATION: GENERAL: Patient is sitting up in bed, confused HEENT: Normocephalic. Neck is supple. Pupils reactive. Oral mucosa moist. Neck reveals no JVD, carotid bruits, or thyromegaly. CHEST EXAMINATION: Trachea is central. Symmetrical expansion. Bibasilar diminished air entry. Lung nwoak clear to auscultation and percussion. CARDIAC: Normal S1, S2 with no gallops. No murmurs ABDOMEN: Soft. Obese, non-distended, nontender No guarding no rigidity. Bowel sounds normal. No organomegaly. Extremities: reveal no edema. No clubbing or cyanosis Neurologically awake, alert, oriented x1-2, with well-coordinated movements. No focal deficits noted Skin: No rash. - Labs CBC & Chem 7: 07/13/19 08:58 07/13/19 08:58 Labs: Abnormal Lab Results - Last 24 Hours (Table) 07/13/19 07/13/19 Range/Units 08:58 08:58 RBC 3.50 L (4.30-5.90) m/uL Hgb 11.2 L (13.0-17.5) gm/dL Hct 32.2 L (39.0-53.0) % Plt Count 122 L (150-450) k/uL Lymphocytes # 0.8 L (1.0-4.8) k/uL Chloride 108 H (98-107) mmol/L Creatinine 0.60 L (0.66-1.25) mg/dL Glucose 155 H (74-99) mg/dL Calcium 8.2 L (8.4-10.2) mg/dL Assessment and Plan Assessment: Epigastric abdominal pain secondary to acute recurrent pancreatitis, etiology unclear, possibly gallbladder related. Hydrops gallbladder. Possible acute cholecystitis. Hyperbilirubinemia Atypical chest pain, in a patient with history of CAD, VA, stent placement. Ruled out ACS. Cardiology following Urinary retention COPD, stable History of DVT/PE in the past. CT angiogram is negative for pulmonary embolism currently. Hypertension Hyperlipidemia Seizure disorder Hyperlipidemia Obesity with BMI 32.9 DVT prophylaxis with heparin subcu Metabolic encephalopathy, acute, medication induced Plan: Continue on current medication regime ,monitoring and symptomatic treatment.Scheduled for cholecystectomy tomorrow. Hold Eliquis. Dilaudid, Ativan discontinued. Further recommendations to follow. The impression and plan of care has been dictated as directed. : I performed a history and examination of this patient, discussed the same with the dictator. I agree with the dictator's note ,documented as a scribe. Any additional findings or plans will be noted.
--- NOTE | 2019-07-13 15:55 | P.PN ---
Subjective Progress Note Date: 07/13/19 This is a pleasant 84-year-old gentleman who follows with Dr. Jimenes in the office. He has a history of CAD, previous VT, PE, hypertension, hyperlipidemia, COPD. Presented to the emergency department with complaints of epigastric and right upper quadrant discomfort that had no relieving factors with tenderness to palpation and associated shortness of breath and nausea. According to the patient the symptoms were quite different compared to symptoms he had with his MIs in the past. CT of the chest was done due to history of PEs which was significantly limited due to respiratory motion but showed no filling defect to suggest pulmonary embolism in the pulmonary trunk through the lobar branches but segmental through subsegmental branches could not accurately be assessed. EKG on presentation to the emergency department was of poor quality showed sinus rhythm with PVC however not adequately able to assess for any ST or T-wave abnormalities. Repeat EKG this morning showed sinus rhythm without ST-T wave abnormalities. Computed tomography scan of the abdomen and pelvis showed small amount of free fluid within the abdomen which is primarily centered around a distended gallbladder, no calcified gallstones visualized, correlation with laboratory values is recommended, colonic diverticulosis without findings of diverticulitis. Ultrasound of the gallbladder showed distended gallbladder, no evidence of cholelithiasis or ultrasonography findings of acute cholecystitis, common bile duct is nondilated. A hepatobiliary scan was attempted yesterday however patient refused to have the entire procedure performed. He did have an echocardiogram with Doppler study which showed a normal left ventricular systolic function. Blood pressure 110/60 with a heart rate in the 70s. White blood cell count 12.8, hemoglobin 12.3, platelet count 117. Sodium 139, potassium 4.0, BUN 24, creatinine 0.7. Total bilirubin 1.5 07/12/2019 Patient did ultimately undergo a hepatobiliary scan which revealed acute cholecystitis. Blood pressure 152/80 with a heart rate in the 60s to 70s, 98% on 2 L of oxygen. White blood cell count 8.2, hemoglobin 11.1, platelet count 102. Sodium 139, potassium 3.5, BUN 16, creatinine 0.6. 2018 Patient seen and examined today hemodynamically stable. Scheduled for robotic surgery tomorrow. Objective - Vital Signs Vital signs: Vital Signs Temp 98.2 F 07/13/19 12:00 Pulse 70 12/11/19 12:00 Resp 18 07/13/19 12:00 BP 159/80 07/13/19 12:00 Pulse Ox 98 07/13/19 12:00 Intake & Output 07/12/19 07/13/19 07/13/19 18:59 06:59 18:59 Intake Total 358 Output Total 500 670 Balance -500 -670 358 Weight 111.7 kg Intake: Oral 358 Output: Urine 500 670 Other: Voiding Method Urinal Urinal Indwelling Catheter # Voids 1 # Bowel Movements 2 - Exam PHYSICAL EXAMINATION: HEENT: Head is atraumatic, normocephalic. Pupils equal, round. Neck is supple. There is no elevated jugular venous pressure. No carotid bruit. HEART EXAMINATION: Heart sounds regular, S1 and S2 with a systolic murmur. CHEST EXAMINATION: Lungs no expiratory wheezing throughout. No chest wall tenderness is noted on palpation or with deep breathing. ABDOMEN: Soft, right lower quadrant and tenderness. Bowel sounds are heard. EXTREMITIES: 2+ peripheral pulses with no evidence of peripheral edema and no calf tenderness noted. NEUROLOGIC patient is awake, alert and oriented x3. - Labs CBC & Chem 7: 07/13/19 08:58 07/13/19 08:58 Labs: Abnormal Lab Results - Last 24 Hours (Table) 07/13/19 07/13/19 Range/Units 08:58 08:58 RBC 3.50 L (4.30-5.90) m/uL Hgb 11.2 L (13.0-17.5) gm/dL Hct 32.2 L (39.0-53.0) % Plt Count 122 L (150-450) k/uL Lymphocytes # 0.8 L (1.0-4.8) k/uL Chloride 108 H (98-107) mmol/L Creatinine 0.60 L (0.66-1.25) mg/dL Glucose 155 H (74-99) mg/dL Calcium 8.2 L (8.4-10.2) mg/dL Assessment and Plan Plan: Assessment and Plan Assessment: #1 acute pancreatitis with evidence of gallbladder distention and symptoms of epigastric and right upper quadrant pain #2 troponin elevation, not consistent with acute coronary syndrome. Echo reveals normal left ventricular systolic function. #3 history of CAD #4 hypertension #5 hyperlipidemia #6 COPD Plan From cardiology's perspective we'll recommend to continue this patient on his current medication. Robotic surgery scheduled for tomorrow. We will continue to follow him along with you during the duration of his stay. DNP note has been reviewed, I agree with a documented findings and plan of care. Patient was seen and examined.
[2019-07-14] MEDS: PHENYTOIN SODIUM EXTENDED 100 MG CAP PO SCH ×3 (00:32→20:35)
[2019-07-14] MEDS: traMADol 50 MG TAB PO PRN ×3 (02:40→20:35)
[2019-07-14 06:58] LABS: Basophils % (A) 0 %; Eosinophils # (A) 0.1 k/uL (0-0.7); Eosinophils % (A) 1 %; HCT 32.3 % (39.0-53.0); HGB 11.4 gm/dL (13.0-17.5); Lymphocytes # (A) 0.9 k/uL (1.0-4.8); Lymphocytes % (A) 14 %; MCH 31.9 pg (25.0-35.0); MCHC 35.3 g/dL (31.0-37.0); MCV 90.6 fL (80.0-100.0); Mean Platelet Volume 7.6; Monocytes # (A) 0.3 k/uL (0-1.0); Monocytes % (A) 5 %; Neutrophils % (A) 78 %; Platelet Count 115 k/uL (150-450); RBC 3.56 m/uL (4.30-5.90); RDW 13.6 % (11.5-15.5); WBC 6.4 k/uL (3.8-10.6)
[2019-07-14] MEDS: CARVEDILOL 12.5 MG TAB PO SCH ×2 (06:59→20:35)
[2019-07-14] MEDS: PANTOPRAZOLE 40 MG TABLET PO SCH (06:59)
[2019-07-14 07:40] LABS: African American GFR (CKD) >90 (>60 ml/min/1.73 sqM); Anion Gap 10 mmol/L; Blood Urea Nitrogen 9 mg/dL (9-20); Carbon Dioxide 23 mmol/L (22-30); Chloride 108 mmol/L (98-107); Glucose 114 mg/dL (74-99); Non-African American GFR(CKD) >90 (>60 ml/min/1.73 sqM); Potassium 3.3 mmol/L (3.5-5.1); Sodium 141 mmol/L (137-145)
[2019-07-14] MEDS: ISOSORBIDE MONONITRATE ER 30 MG TAB.ER.24H PO SCH (08:33)
[2019-07-14] MEDS: ATORVASTATIN 80 MG TAB PO SCH (08:33)
[2019-07-14] MEDS: ALLOPURINOL 300 MG TAB PO SCH (08:33)
[2019-07-14] MEDS: TAMSULOSIN 0.4 MG CAP.ER.24H PO SCH (08:33)
[2019-07-14] MEDS: ASPIRIN 81 MG PO SCH (08:33)
[2019-07-14] MEDS: SODIUM CHLORIDE 0.9% 1,000 ML IV SCH ×2 (08:33→23:58)
[2019-07-14] MEDS: LISINOPRIL 20 MG TAB PO SCH ×2 (08:33→20:35)
[2019-07-14 09:18] LABS: ALT 43 U/L (21-72); AST 56 U/L (17-59); Albumin 3.1 g/dL (3.5-5.0); Alkaline Phosphatase 139 U/L (38-126); Total Bilirubin 1.2 mg/dL (0.2-1.3); Total Protein 5.6 g/dL (6.3-8.2)
[2019-07-14] MEDS ORDERED: Potassium Replacement Protocol 1 EACH MISC MISCELLANE PRN (09:36)
[2019-07-14] MEDS: POTASSIUM CHLORIDE ER 20 MEQ TAB.ER PO SCH ×2 (10:47→12:18)
[2019-07-14] MEDS ORDERED: LACTATED RINGERS 1,000 ML IV ONE ×2 (14:20→17:20)
--- NOTE | 2019-07-14 14:30 | P.PN ---
Subjective Progress Note Date: 07/14/19 Abdominal pain Patient is a 84-year-old male with a known history of coronary artery disease with history of stent placement, history of pancreatitis, previous history of GA, hypertension, hyperlipidemia, seizure disorder, nephrolithiasis, BPH and other medical problems and obesity came to ER with complaints of abdominal pain mainly in the epigastric region and sometimes right upper quadrant.. Pain is associated with nausea. No episodes of vomiting. Patient started having symptoms since yesterday evening. Denied any radiation of the pain to the back. But patient does say that the pain is going inside the abdomen. No headache or dizziness or lightheadedness. Denied any leg swelling. No orthopnea no PND. CT angiogram showed pulmonary trunk and through lobar branches. Segmental through subsegmental branches cannot be accurately assessed. EKG on admission showed sinus rhythm. PVCs noted. Ultrasound abdomen report is pending at this time. Troponin 0.115, 0.083 and 0.080. Lipase level 1516 07 10 2019 Patient is still complaining of abdominal pain mainly in the epigastric and right upper quadrant. Ultrasound of the abdomen showed hydrops gallbladder. HIDA scan was ordered. Gen. surgery was consulted. Patient is currently nothing by mouth. Anticoagulation is on hold. Cardiology and general surgery is following. 07/11/2019 NPO, maintained on IV fluid hydration. Reports abdominal pain has shifted to only right lower quadrant abdominal pain. Denies nausea, vomiting .Early this morning bladder scanned for 750 MLS, required straight cath.,maintained on Flomax. Complains of right lower quadrant abdominal pain. Attempted HIDA scan unable to lay flat secondary to his abdominal pain. T bili increased up to 1.5. Significant improvement in lipase, down to 415. KATELYNN sc reen negative. Further recommendations per surgery pending. Afebrile, WBC elevated at 12.8. 07/12/2019 continues on IV fluid hydration, NPO. Repeat of HIDA scan scheduled for this morning. Afebrile, normal WBC. LFTs within normal limits, including total bili, 1.3. Lipase has normalized. KATELYNN screen negative. Denies abdominal pain this morning. Mann catheter placed yesterday for urinary retention. 07/13/2019 lethargic from receiving Dilaudid and Ativan throughout the night. Denies nausea, vomiting. Denies abdominal pain. Mann inserted yesterday for urinary retention. HIDA scan suboptimal, reporting overall findings compatible with acute cystitis Evaluated by surgery, scheduled for cholecystectomy tomorrow. Afebrile, normal WBC. 07/14/2019 significant improvement in sensorium, alert and oriented 3. Scheduled for laparoscopic cholecystectomy today.VSS. Potassium 3.3, potassium replacement protocol ordered. Denies chest pain, palpitations or increasing shortness of breath. Objective - Vital Signs Vital signs: Vital Signs Temp 98.1 F 07/14/19 14:11 Pulse 67 07/14/19 14:11 Resp 16 07/14/19 14:11 BP 158/90 07/14/19 14:11 Pulse Ox 94 L 07/14/19 14:11 Intake & Output 07/13/19 07/14/19 07/14/19 18:59 06:59 18:59 Intake Total 358 Output Total 750 200 Balance 358 -750 -200 Weight 106.5 kg 106.141 kg Intake: Oral 358 Output: Urine 750 200 Other: Voiding Method Indwelling Catheter Indwelling Catheter Indwelling Catheter # Bowel Movements 2 - Exam - Exam PHYSICAL EXAMINATION: GENERAL: Patient is sitting up in bed, no acute distress HEENT: Normocephalic. Neck is supple. Pupils reactive. Oral mucosa moist. Neck reveals no JVD, carotid bruits, or thyromegaly. CHEST EXAMINATION: Trachea is central. Symmetrical expansion. Bibasilar diminished air entry. Lung nowak clear to auscultation and percussion. CARDIAC: Normal S1, S2 with no gallops. No murmurs ABDOMEN: Soft. Obese, non-distended, nontender No guarding no rigidity. Bowel sounds normal. No organomegaly. Extremities: reveal no edema. No clubbing or cyanosis Neurologically awake, alert, oriented x3, with well-coordinated movements. No focal deficits noted Skin: No rash. - Labs CBC & Chem 7: 07/14/19 06:46 07/14/19 06:46 Labs: Abnormal Lab Results - Last 24 Hours (Table) 07/14/19 07/14/19 Range/Units 06:46 06:46 RBC 3.56 L (4.30-5.90) m/uL Hgb 11.4 L (13.0-17.5) gm/dL Hct 32.3 L (39.0-53.0) % Plt Count 115 L (150-450) k/uL Lymphocytes # 0.9 L (1.0-4.8) k/uL Potassium 3.3 L (3.5-5.1) mmol/L Chloride 108 H (98-107) mmol/L Creatinine 0.44 L (0.66-1.25) mg/dL Glucose 114 H (74-99) mg/dL Calcium 8.0 L (8.4-10.2) mg/dL Alkaline Phosphatase 139 H (38-126) U/L Total Protein 5.6 L (6.3-8.2) g/dL Albumin 3.1 L (3.5-5.0) g/dL Assessment and Plan Assessment: Epigastric abdominal pain secondary to acute recurrent pancreatitis, etiology unclear, possibly gallbladder related. Hydrops gallbladder. Possible acute cholecystitis. Hyperbilirubinemia Atypical chest pain, in a patient with history of CAD, GA, stent placement. Ruled out ACS. Cardiology following Urinary retention COPD, stable History of DVT/PE in the past. CT angiogram is negative for pulmonary embolism currently. Hypertension Hyperlipidemia Seizure disorder Hyperlipidemia Obesity with BMI 32.9 DVT prophylaxis with heparin subcu Metabolic encephalopathy, acute, medication induced, significantly improved Plan: Continue on current medication regime ,monitoring and symptomatic treatment.Cholecystectomy today, Hold Eliquis. Further recommendations to follow. A&D ointment to penis site. The impression and plan of care has been dictated as directed. : I performed a history and examination of this patient, discussed the same with the dictator. I agree with the dictator's note ,documented as a scribe. Any additional findings or plans will be noted.
[2019-07-14] MEDS ORDERED: HEPARIN SODIUM,PORCINE 5,000 UNIT/ML 1 ML VIAL SQ ONE (14:48)
[2019-07-14] MEDS ORDERED: INDOCYANINE GREEN 25 MG VIAL IV STA (14:52)
--- NOTE | 2019-07-14 14:52 | P.HPADDEND ---
H&P Addendum H&P Addendum Date: 07/14/19 Patient has acute cholecystitis per HIDA scan. Benefits and risks of robotic cholecystectomy described
[2019-07-14] MEDS ORDERED: LIDOCAINE 1% INJ 10MG/ML (20 ML MDV) ONE (14:58)
[2019-07-14] MEDS ORDERED: ROCURONIUM BROMIDE 10 MG/ML 10 ML VIAL IV ONE (14:58)
[2019-07-14] MEDS ORDERED: PROPOFOL 10 MG/ML 20 ML VIAL IV ONE (14:58)
[2019-07-14] MEDS ORDERED: INDOCYANINE GREEN 25 MG VIAL IV ONE (14:58)
[2019-07-14] MEDS ORDERED: SUCCINYLCHOLINE CHLORIDE VIAL 200 MG/10 ML VIAL IV ONE (14:58)
[2019-07-14] MEDS ORDERED: fentaNYL (PF) 50 MCG/ML 2 ML AMP ONE (14:58)
[2019-07-14] MEDS ORDERED: GLYCOPYRROLATE 0.2 MG/ML 2 ML VIAL ONE (14:58)
[2019-07-14] MEDS ORDERED: ONDANSETRON 4 MG/2 ML VIAL ONE (14:58)
[2019-07-14] MEDS ORDERED: NEOSTIGMINE 1 MG/ML 10 ML VIAL ONE (14:58)
[2019-07-14] MEDS ORDERED: HYDROmorphone (PF) 1 MG/ML ONE (14:58)
--- NOTE | 2019-07-14 15:03 | P.PN ---
Subjective Progress Note Date: 07/14/19 This is a pleasant 84-year-old gentleman who follows with Dr. Jimenes in the office. He has a history of CAD, previous [place], PE, hypertension, hyperlipidemia, COPD. Presented to the emergency department with complaints of epigastric and right upper quadrant discomfort that had no relieving factors with tenderness to palpation and associated shortness of breath and nausea. According to the patient the symptoms were quite different compared to symptoms he had with his MIs in the past. CT of the chest was done due to history of PEs which was significantly limited due to respiratory motion but showed no filling defect to suggest pulmonary embolism in the pulmonary trunk through the lobar branches but segmental through subsegmental branches could not accurately be assessed. EKG on presentation to the emergency department was of poor quality showed sinus rhythm with PVC however not adequately able to assess for any ST or T-wave abnormalities. Repeat EKG this morning showed sinus rhythm without ST-T wave abnormalities. Computed tomography scan of the abdomen and pelvis showed small amount of free fluid within the abdomen which is primarily centered around a distended gallbladder, no calcified gallstones visualized, correlation with laboratory values is recommended, colonic diverticulosis without findings of diverticulitis. Ultrasound of the gallbladder showed distended gallbladder, no evidence of cholelithiasis or ultrasonography findings of acute cholecystitis, common bile duct is nondilated. A hepatobiliary scan was attempted yesterday however patient refused to have the entire procedure performed. He did have an echocardiogram with Doppler study which showed a normal left ventricular systolic function. Blood pressure 110/60 with a heart rate in the 70s. White blood cell count 12.8, hemoglobin 12.3, platelet count 117. Sodium 139, potassium 4.0, BUN 24, creatinine 0.7. Total bilirubin 1.5 07/12/2019 Patient did ultimately undergo a hepatobiliary scan which revealed acute cholecystitis. Blood pressure 152/80 with a heart rate in the 60s to 70s, 98% on 2 L of oxygen. White blood cell count 8.2, hemoglobin 11.1, platelet count 102. Sodium 139, potassium 3.5, BUN 16, creatinine 0.6. 2018 Patient seen and examined today hemodynamically stable. Scheduled for robotic surgery tomorrow. 07/14/2019 Patient was seen and examined this morning, hemodynamically stable. Scheduled today to undergo robotic gallbladder surgery. Objective - Vital Signs Vital signs: Vital Signs Temp 98.1 F 07/14/19 14:11 Pulse 67 07/14/19 14:11 Resp 16 07/14/19 14:11 BP 158/90 07/14/19 14:11 Pulse Ox 94 L 07/14/19 14:11 Intake & Output 07/13/19 07/14/19 07/14/19 18:59 06:59 18:59 Intake Total 358 800 Output Total 750 1200 Balance 358 -750 -400 Weight 106.5 kg 106.141 kg Intake: Intake, IV Titration 800 Amount Sodium Chloride 0.9% 1, 800 000 ml @ 100 mls/hr IV . Q10H MARYBEL Rx#:[id number] Oral 358 Output: Urine 750 1200 Other: Voiding Method Indwelling Catheter Indwelling Catheter Indwelling Catheter # Bowel Movements 2 - Exam PHYSICAL EXAMINATION: HEENT: Head is atraumatic, normocephalic. Pupils equal, round. Neck is supple. There is no elevated jugular venous pressure. No carotid bruit. HEART EXAMINATION: Heart sounds regular, S1 and S2 with a systolic murmur. CHEST EXAMINATION: Lungs no expiratory wheezing throughout. No chest wall tende rness is noted on palpation or with deep breathing. ABDOMEN: Soft, right lower quadrant and tenderness. Bowel sounds are heard. EXTREMITIES: 2+ peripheral pulses with no evidence of peripheral edema and no calf tenderness noted. NEUROLOGIC patient is awake, alert and oriented x3. - Labs CBC & Chem 7: 07/14/19 06:46 07/14/19 14:26 Labs: Abnormal Lab Results - Last 24 Hours (Table) 07/14/19 07/14/19 07/14/19 Range/Units 06:46 06:46 14:26 RBC 3.56 L (4.30-5.90) m/uL Hgb 11.4 L (13.0-17.5) gm/dL Hct 32.3 L (39.0-53.0) % Plt Count 115 L (150-450) k/uL Lymphocytes # 0.9 L (1.0-4.8) k/uL Potassium 3.3 L 3.4 L (3.5-5.1) mmol/L Chloride 108 H (98-107) mmol/L Creatinine 0.44 L (0.66-1.25) mg/dL Glucose 114 H (74-99) mg/dL Calcium 8.0 L (8.4-10.2) mg/dL Alkaline Phosphatase 139 H (38-126) U/L Total Protein 5.6 L (6.3-8.2) g/dL Albumin 3.1 L (3.5-5.0) g/dL Assessment and Plan Plan: Assessment and Plan Assessment: #1 acute pancreatitis with evidence of gallbladder distention and symptoms of epigastric and right upper quadrant pain #2 troponin elevation, not consistent with acute coronary syndrome. Echo reveals normal left ventricular systolic function. #3 history of CAD #4 hypertension #5 hyperlipidemia #6 COPD Plan From cardiology's perspective we'll recommend to continue this patient on his current medication. Robotic surgery scheduled for today. We will continue to follow him along with you during the duration of his stay. DNP note has been reviewed, I agree with a documented findings and plan of care. Patient was seen and examined.
[2019-07-14] MEDS ORDERED: BUPIVACAIN-EPI 0.25%-1:200,000 30 ML VIAL SQ ONE (15:43)
[2019-07-14] MEDS ORDERED: ACETAMINOPHEN TAB 325 MG TAB PO PRN (17:52)
[2019-07-14] MEDS ORDERED: NALOXONE 0.4 MG/ML 1 ML VIAL IV PRN (17:52)
--- NOTE | 2019-07-14 18:10 | P.OP ---
Date of Procedure: 07/14/19 Description of Procedure: SURGEON: ARLIN TUCKER MD PREOPERATIVE DIAGNOSES: 1. Acute cholecystitis 2. Acute pancreatitis 3. non-ST elevated myocardial infarction 4. Benign prostatic hypertrophy with lower obstructive symptoms 5. Recent bilateral pneumonia 6. Gastroesophageal reflux disease 7. Seizure disorder 8. Memory impairment with early dementia 9. Obesity due to excess calories, BMI 31.7 10. Chronic anticoagulant use 11. Gout 12. Ischemic cardiomyopathy 13. Chronic obstructive pulmonary disease 14. Hyperlipidemia 15. Hypertensive heart disease 16. Vertigo 17. Kidney stones 18. Coronary artery disease with stent placement 19. Congestive heart failure with diastolic dysfunction 20. Pulmonary hypertension POSTOPERATIVE DIAGNOSES: 1. Acute purulent hydrops cholecystitis 2. Acute pancreatitis 3. non-ST elevated myocardial infarction 4. Benign prostatic hypertrophy with lower obstructive symptoms 5. Recent bilateral pneumonia 6. Gastroesophageal reflux disease 7. Seizure disorder 8. Memory impairment with early dementia 9. Obesity due to excess calories, BMI 31.7 10. Chronic anticoagulant use 11. Gout 12. Ischemic cardiomyopathy 13. Chronic obstructive pulmonary disease 14. Hyperlipidemia 15. Hypertensive heart disease 16. Vertigo 17. Kidney stones 18. Coronary artery disease with stent placement 19. Congestive heart failure with diastolic dysfunction 20. Pulmonary hypertension OPERATION: 1. Robotic-assisted da Juan Xi laparoscopic sub-total cholecystectomy, multiport with FIREFLY 2. Robotic-assisted da Juan Xi laparoscopic place of adhesions, over 1 hour 3. Placement of round #19 drain at right upper quadrant ESTIMATED BLOOD LOSS: 100 mL. SPECIMENS REMOVED: Gallbladder. COMPLICATIONS: None. OPERATIVE FINDINGS: 1. Acute cholecystitis with cystic duct obstruction and clear bile consistent with hydrops and purulence 2. Cholecystectomy performed at infundibulum with 45 mm green robotic stapler load INDICATIONS: The patient is a 84-year-old male who history presented with chest pain andnon-ST elevated NH with additional workup demonstrating acute cholecystitis per HIDA scan. Surgical intervention with a laparoscopic cholecystectomy was described at length including injury to the biliary tree, bleeding, infection, need for further surgery. Informed consent was obtained. Robotic assisted laparoscopic approach was described. Benefits and risks of the procedure including but not limited to bleeding, infection, injury to the biliary tree was described. Informed consent was obtained. DESCRIPTION OF PROCEDURE: Patient was brought to the operating room, placed in supine position. After general induction, the abdomen had been prepped and draped in standard sterile fashion. The robotic da Juan XI system was primed. After a timeout protocol was performed, the patient had been prepped and draped in standard sterile fashion. The patient was injected with indocyanine green. A 5 mm 0 degrees laparoscopic trocar entry was performed along the left upper quadrant. The abdomen insufflated to 15 mmHg pressure which he tolerated well. Diagnostic laparoscopy demonstrated no injury to bowel viscera or mesentery. Next, two 8 mm robotic ports were placed along the right upper abdomen. The camera 8-mm port was maintained along the epigastrium. Another 8 mm port was placed along the left upper abdominal wall after exchanging the 5 mm port. Please note that the ports were placed at least 10 to 15 cm away from the target anatomy of the gallbladder. The robot was docked along the left lateral abdomen. The patient was repositioned in reverse Trendelenburg position. Using a grasper for arm 3, a grasper for arm 4, including hook cautery for arm 1, the robotic system was docked and primed as described. Instruments were interchanged by the registrar assistant including hook cautery, Bovie cautery and clip appliers. Additional instruments used were vessel sealer including robotic stapler and suction slip caster. I had sat at the console. The entire gallbladder was encased in the omentum and surrounding tissues consistent with severe inflammation of the gallbladder. Once the adhesions around the gallbladder were released, the gallbladder wall was moderately inflamed and thickened consistent with acute cholecystitis. The cystic structures were completely obscured by severe edema necessitating dome down technique. Extensive lysis of adhesions including dissection of the gallbladder over 1 hour was performed to prevent harm to the cystic structures and common bile duct. The gallbladder fundus was retracted over the dome of the liver. The cystic structures were completely obscured with edematous infundibulum and fatty tissue. A dome down technique was performed removing the gallbladder from the hepatic fossa. Additionally the gallbladder was intrahepatic adding complexity to the case. The gallbladder was decompressed with clear bile found consistent with hydrops. Additionally purulence was found emanating from the gallbladder. With the dense adhesions and completely fusing of the cystic structures to the common bile duct, a subtotal cholecystectomy was proposed. Using indocyanine green drain, the entire gallbladder lacked visualization consistent with acute cholecystitis. The port along the left upper quadrant was exchanged for a 12 mm port. A green 45 mm robotic stapler was used to divide the gallbladder at the infundibulum. Electro-Bovie cautery was used to remove the gallbladder from the hepatic fossa. Hemostasis was checked and found to be adequate. The abdomen was irrigated with normal saline until solution. A round #19 drain was placed at the hepatic fossa and exited via the right lateral abdominal wall with a 2-0 nylon stitch and bulb suction. The robot was undocked. I re-scrubbed into the case. Using a 10 mm Endo Catch bag via the left upper quadrant incision, the specimen was removed from the abdominal cavity. All pneumoperitoneum instruments were evacuated from the abdominal cavity. The incisions were reapproximated using 4-0 Monocryl in an interrupted subcuticular fashion. Fascial defects were less than 8 mm in size. Please note along the trocar sites, local anesthetic was placed as a field block prior to insertion of all instruments. The skin was cleansed with dilute hydrogen peroxide. Liquid glue was applied to the skin. Optifoam dressing was placed along the left upper quadrant and KIRTI drain site. At the end of the procedure needle, sponge, and instrument count had been verified correct by the forensic science technician. The patient was transferred to postanesthesia care unit in stable condition. Console time 94 minutes
[2019-07-14] MEDS ORDERED: HYDROmorphone 0.5 MG/0.5 ML SYRINGE IVP ONE (18:22)
[2019-07-14] MEDS: HYDROmorphone 1 MG/ML 1 ML SYRINGE IVP PRN (22:59)
[2019-07-15] MEDS ORDERED: amLODIPine 5 MG TAB PO STA (02:37)
[2019-07-15] MEDS: HYDROmorphone 1 MG/ML 1 ML SYRINGE IVP PRN ×5 (02:55→21:47)
[2019-07-15] MEDS: CARVEDILOL 12.5 MG TAB PO SCH ×2 (06:17→16:18)
[2019-07-15] MEDS: PANTOPRAZOLE 40 MG TABLET PO SCH (06:18)
[2019-07-15 06:48] LABS: Basophils % (A) 0 %; Eosinophils # (A) 0.1 k/uL (0-0.7); Eosinophils % (A) 1 %; HCT 37.8 % (39.0-53.0); HGB 12.5 gm/dL (13.0-17.5); Lymphocytes # (A) 0.7 k/uL (1.0-4.8); Lymphocytes % (A) 6 %; MCH 30.9 pg (25.0-35.0); MCHC 33.1 g/dL (31.0-37.0); MCV 93.2 fL (80.0-100.0); Mean Platelet Volume 7.5; Monocytes # (A) 0.6 k/uL (0-1.0); Monocytes % (A) 5 %; Neutrophils # (A) 9.6 k/uL (1.3-7.7); Neutrophils % (A) 87 %; Platelet Count 152 k/uL (150-450); RBC 4.06 m/uL (4.30-5.90); RDW 13.5 % (11.5-15.5); WBC 11.1 k/uL (3.8-10.6)
[2019-07-15 06:57] LABS: ALT 35 U/L (4-49); AST 60 U/L (17-59); African American GFR (CKD) >90 (>60 ml/min/1.73 sqM); Alkaline Phosphatase 127 U/L (38-126); Anion Gap 12 mmol/L; Blood Urea Nitrogen 11 mg/dL (9-20); Calcium 8.1 mg/dL (8.4-10.2); Carbon Dioxide 21 mmol/L (22-30); Chloride 107 mmol/L (98-107); Glucose 149 mg/dL (74-99); Magnesium 1.4 mg/dL (1.6-2.3); Non-African American GFR(CKD) >90 (>60 ml/min/1.73 sqM); Phosphorus 3.9 mg/dL (2.5-4.5); Sodium 140 mmol/L (137-145); Total Bilirubin 1.5 mg/dL (0.2-1.3); Total Protein 5.8 g/dL (6.3-8.2)
[2019-07-15] MEDS ORDERED: LEVOFLOXACIN 500MG-D5W PMX 500 MG in DEXTROSE/WATER 1 100ML.BAG IVPB SCH (09:00)
[2019-07-15] MEDS ORDERED: ENOXAPARIN 30 MG/0.3 ML SYRINGE SQ SCH (09:00)
[2019-07-15] MEDS: PHENYTOIN SODIUM EXTENDED 100 MG CAP PO SCH ×4 (09:18→21:46)
[2019-07-15] MEDS: ISOSORBIDE MONONITRATE ER 30 MG TAB.ER.24H PO SCH (09:18)
[2019-07-15] MEDS: ATORVASTATIN 80 MG TAB PO SCH (09:18)
[2019-07-15] MEDS: ASPIRIN 81 MG PO SCH (09:18)
[2019-07-15] MEDS: ALLOPURINOL 300 MG TAB PO SCH (09:18)
[2019-07-15] MEDS: LISINOPRIL 20 MG TAB PO SCH ×2 (09:18→21:46)
[2019-07-15] MEDS: TAMSULOSIN 0.4 MG CAP.ER.24H PO SCH (09:18)
[2019-07-15] MEDS ORDERED: Magnesium Replacement Protocol 1 EACH MISC MISCELLANE PRN (10:57)
[2019-07-15] MEDS: MAGNESIUM SULFATE-D5W PMX 1 GM in DEXTROSE/WATER 1 100ML.BAG IVPB SCH ×3 (12:10→16:14)
--- NOTE | 2019-07-15 12:17 | P.PN ---
<Yahaira Leon Alek - Last Filed: 07/15/19 12:14> Subjective Progress Note Date: 07/15/19 CHIEF COMPLAINT: Distended gallbladder HISTORY OF PRESENT ILLNESS: patient is status post robotic-assisted laparoscopic subtotal cholecystectomy and lysis of adhesions. Postop day #1. Patient examined at the bedside with Dr. Lion. Patient reports his pain is tolerable. Tolerating diet. Denies nausea or vomiting. vital signs stable. PHYSICAL EXAM: VITALS: Reviewed CONSTITUTIONAL: Well developed in no acute distress. EYES: Conjuctivae without sclera icterus. Pupils are equally round and reactive to light. Extraocular movements grossly intact. HEAD, EARS, NOSE, THROAT: Moist buccal mucosa. Head is atraumatic, normocephalic. Hears conversational speech. No nasal drainage. NECK: Supple. RESPIRATORY: Non-labored respirations and equal bilateral excursions. No gross wheezes. CARDIOVASCULAR: Palpable 2+ radial pulses. ABDOMEN: Soft. Nondistended. appropriate surgical tenderness. KIRTI drain with serosanguineous drainage. MUSCULOSKELETAL: Nail and fingers with good capillary refill. SKIN: Warm and well perfused with good skin turgor. NEUROLOGIC: Cranial nerves I through XII grossly intact. Sensation upper and extremities intact. No focal or lateralizing signs. PSYCH: Appropriate affect. Alert and oriented to person, place and time. Disp lays appropriate insight. ASSESSMENT: 1. Right upper quadrant abdominal pain, acute purulent hydrops cholecystitis 2. Abnormal computed tomography scan of distending gallbladder 3. Acute pancreatitis, recurrent 4. COPD 5. Atypical chest pain with recent elevation troponins 6. Elevated bilirubin 7. Acute cholecystitis 8. Urinary retention PLAN: -continue diet as tolerated -Pain control -Increase activity as tolerated -Incentive spirometer 10 times an hour -Continue KIRTI drain at discharge -Discharge per medicine Nurse practitioner note has been reviewed by physician. Signing provider agrees with the documented findings, assessment, and plan of care. Objective - Vital Signs Vital signs: Vital Signs Temp 97.2 F L 07/15/19 12:00 Pulse 83 07/15/19 12:00 Resp 20 07/15/19 12:00 BP 123/71 07/15/19 12:00 Pulse Ox 95 07/15/19 12:00 Intake & Output 07/14/19 07/15/19 07/15/19 18:59 06:59 18:59 Intake Total 2700 80 0 Output Total 1300 900 Balance 1400 -820 0 Weight 106.141 kg 108.9 kg Intake: IV 1900 Intake, IV Titration 800 80 Amount Sodium Chloride 0.9% 1, 800 80 000 ml @ 100 mls/hr IV . Q10H [facility] Rx#:[id number] Oral 0 Output: Drainage 0 Right Abdomen 0 Urine 1250 900 Estimated Blood Loss 50 Other: Voiding Method Indwelling Catheter Indwelling Catheter Indwelling Catheter - Labs CBC & Chem 7: 07/15/19 06:12 07/15/19 06:12 Labs: Abnormal Lab Results - Last 24 Hours (Table) 07/14/19 07/15/19 07/15/19 Range/Units 14:26 06:12 06:12 WBC 11.1 H (3.8-10.6) k/uL RBC 4.06 L (4.30-5.90) m/uL Hgb 12.5 L (13.0-17.5) gm/dL Hct 37.8 L (39.0-53.0) % Neutrophils # 9.6 H (1.3-7.7) k/uL Lymphocytes # 0.7 L (1.0-4.8) k/uL Potassium 3.4 L (3.5-5.1) mmol/L Carbon Dioxide 21 L (22-30) mmol/L Creatinine 0.54 L (0.66-1.25) mg/dL Glucose 149 H (74-99) mg/dL Calcium 8.1 L (8.4-10.2) mg/dL Magnesium 1.4 L (1.6-2.3) mg/dL Total Bilirubin 1.5 H (0.2-1.3) mg/dL AST 60 H (17-59) U/L Alkaline Phosphatase 127 H (38-126) U/L Total Protein 5.8 L (6.3-8.2) g/dL Albumin 3.0 L (3.5-5.0) g/dL <Supriya Lion - Last Filed: 07/15/19 21:37> Subjective As above, continue antibiotics upon discharge 1 week. Start blood thinners July 17 Objective - Vital Signs Vital signs: Vital Signs Temp 97.3 F L 07/15/19 16:00 Pulse 82 07/15/19 16:00 Resp 18 07/15/19 16:00 BP 131/71 07/15/19 16:00 Pulse Ox 94 L 07/15/19 16:00 Intake & Output 07/15/19 07/15/19 07/16/19 06:59 18:59 06:59 Intake Total 80 600 Output Total 900 890 Balance -820 -290 Weight 108.9 kg 108.9 kg Intake: Intake, IV Titration 80 400 Amount Levofloxacin 500Mg-D5w 100 Pmx 500 mg In Dextrose/ Water 1 100ml.bag @ 100 mls/hr IVPB Q24HR [facility] Rx# :[id number] Magnesium Sulfate-D5w Pmx 300 1 gm In Dextrose/Water 1 100ml.bag @ 100 mls/hr IVPB Q1H [facility] Rx#: [id number] Sodium Chloride 0.9% 1, 80 000 ml @ 100 mls/hr IV . Q10H [facility] Rx#:[id number] Oral 200 Output: Drainage 0 90 Right Abdomen 0 90 Urine 900 800 Other: Voiding Method Indwelling Catheter Indwelling Catheter # Voids 1 - Labs CBC & Chem 7: 07/15/19 06:12 07/15/19 06:12 Labs: Abnormal Lab Results - Last 24 Hours (Table) 07/15/19 07/15/19 Range/Units 06:12 06:12 WBC 11.1 H (3.8-10.6) k/uL RBC 4.06 L (4.30-5.90) m/uL Hgb 12.5 L (13.0-17.5) gm/dL Hct 37.8 L (39.0-53.0) % Neutrophils # 9.6 H (1.3-7.7) k/uL Lymphocytes # 0.7 L (1.0-4.8) k/uL Carbon Dioxide 21 L (22-30) mmol/L Creatinine 0.54 L (0.66-1.25) mg/dL Glucose 149 H (74-99) mg/dL Calcium 8.1 L (8.4-10.2) mg/dL Magnesium 1.4 L (1.6-2.3) mg/dL Total Bilirubin 1.5 H (0.2-1.3) mg/dL AST 60 H (17-59) U/L Alkaline Phosphatase 127 H (38-126) U/L Total Protein 5.8 L (6.3-8.2) g/dL Albumin 3.0 L (3.5-5.0) g/dL Assessment and Plan (1) COPD (chronic obstructive pulmonary disease) Current Visit: Yes Status: Acute Code(s): J44.9 - CHRONIC OBSTRUCTIVE PULMONARY DISEASE, UNSPECIFIED SNOMED Code(s): 20598921 (2) Right upper quadrant abdominal pain Current Visit: Yes Status: Acute Code(s): R10.11 - RIGHT UPPER QUADRANT PAIN SNOMED Code(s): 871811596 (3) Chronic cholecystitis Current Visit: Yes Status: Acute Code(s): K81.1 - CHRONIC CHOLECYSTITIS SNOMED Code(s): 68227476 (4) Acute pancreatitis Current Visit: Yes Status: Acute Code(s): K85.90 - ACUTE PANCREATITIS WITHOUT NECROSIS OR INFECTION, UNSP SNOMED Code(s): 652693501 (5) HTN (hypertension) Current Visit: Yes Status: Acute Code(s): I10 - ESSENTIAL (PRIMARY) HYPERTENSION SNOMED Code(s): 61299616 (6) Non-ST elevation myocardial infarction (NSTEMI) Current Visit: Yes Status: Acute Code(s): I21.4 - NON-ST ELEVATION (NSTEMI) MYOCARDIAL INFARCTION SNOMED Code(s): 13749894 (7) CAD (coronary artery disease) Current Visit: No Status: Acute Code(s): I25.10 - ATHSCL HEART DISEASE OF [place] CORONARY ARTERY W/O ANG PCTRS SNOMED Code(s): 93752110 (8) Anticoagulant long-term use Current Visit: Yes Status: Acute Code(s): Z79.01 - FDC (CURRENT) USE OF ANTICOAGULANTS SNOMED Code(s): 221958222 (9) Acute urinary retention Current Visit: Yes Status: Acute Code(s): R33.8 - OTHER RETENTION OF URINE SNOMED Code(s): 792299349 (10) Acute cholecystitis Current Visit: Yes Status: Acute Code(s): K81.0 - ACUTE CHOLECYSTITIS SNOMED Code(s): 57458427
[2019-07-15] MEDS: traMADol 50 MG TAB PO PRN (13:51)
[2019-07-15 15:59] VITALS: BMI 32.5
--- NOTE | 2019-07-15 16:19 | P.PN ---
Subjective Progress Note Date: 07/15/19 Abdominal pain Patient is a 84-year-old male with a known history of coronary artery disease with history of stent placement, history of pancreatitis, previous history of [place], hypertension, hyperlipidemia, seizure disorder, nephrolithiasis, BPH and other medical problems and obesity came to ER with complaints of abdominal pain mainly in the epigastric region and sometimes right upper quadrant.. Pain is associated with nausea. No episodes of vomiting. Patient started having symptoms since yesterday evening. Denied any radiation of the pain to the back. But patient does say that the pain is going inside the abdomen. No headache or dizziness or lightheadedness. Denied any leg swelling. No orthopnea no PND. CT angiogram showed pulmonary trunk and through lobar branches. Segmental through subsegmental branches cannot be accurately assessed. EKG on admission showed sinus rhythm. PVCs noted. Ultrasound abdomen report is pending at this time. Troponin 0.115, 0.083 and 0.080. Lipase level 1516 07 10 2019 Patient is still complaining of abdominal pain mainly in the epigastric and right upper quadrant. Ultrasound of the abdomen showed hydrops gallbladder. HIDA scan was ordered. Gen. surgery was consulted. Patient is currently nothing by mouth. Anticoagulation is on hold. Cardiology and general surgery is following. 07/11/2019 NPO, maintained on IV fluid hydration. Reports abdominal pain has shifted to only right lower quadrant abdominal pain. Denies nausea, vomiting .Early this morning bladder scanned for 750 MLS, required straight cath.,maintained on Flomax. Complains of right lower quadrant abdominal pain. Attempted HIDA scan unable to lay flat secondary to his abdominal pain. T bili increased up to 1.5. Significant improvement in lipase, down to 415. KATELYNN sc reen negative. Further recommendations per surgery pending. Afebrile, WBC elevated at 12.8. 07/12/2019 continues on IV fluid hydration, NPO. Repeat of HIDA scan scheduled for this morning. Afebrile, normal WBC. LFTs within normal limits, including total bili, 1.3. Lipase has normalized. KATELYNN screen negative. Denies abdominal pain this morning. Mann catheter placed yesterday for urinary retention. 07/13/2019 lethargic from receiving Dilaudid and Ativan throughout the night. Denies nausea, vomiting. Denies abdominal pain. Mann inserted yesterday for urinary retention. HIDA scan suboptimal, reporting overall findings compatible with acute cystitis Evaluated by surgery, scheduled for cholecystectomy tomorrow. Afebrile, normal WBC. 07/14/2019 significant improvement in sensorium, alert and oriented 3. Scheduled for laparoscopic cholecystectomy today.VSS. Potassium 3.3, potassium replacement protocol ordered. Denies chest pain, palpitations or increasing shortness of breath. 07/15/2019 status post laparoscopic subtotal cholecystectomy with lysis of adhesions, tolerated procedure well. Pain controlled.tolerating low fat diet with no nausea vomiting or diarrhea. Passing flatus.maintaining O2 sats in the 90s on 2 L nasal cannula.afebrile,WBC 11.1. Objective - Vital Signs Vital signs: Vital Signs Temp 97.3 F L 07/15/19 16:00 Pulse 82 07/15/19 16:00 Resp 18 07/15/19 16:00 BP 131/71 07/15/19 16:00 Pulse Ox 94 L 07/15/19 16:00 Intake & Output 07/14/19 07/15/19 07/15/19 18:59 06:59 18:59 Intake Total 2700 80 200 Output Total 1300 900 Balance 1400 -820 200 Weight 106.141 kg 108.9 kg 108.9 kg Intake: IV 1900 Intake, IV Titration 800 80 Amount Sodium Chloride 0.9% 1, 800 80 000 ml @ 100 mls/hr IV . Q10H [facility] Rx#:[id number] Oral 200 Output: Drainage 0 Right Abdomen 0 Urine 1250 900 Estimated Blood Loss 50 Other: Voiding Method Indwelling Catheter Indwelling Catheter Indwelling Catheter # Voids 1 - Exam - Exam PHYSICAL EXAMINATION: GENERAL: Patient is sitting up in bed, no acute distress HEENT: Normocephalic. Neck is supple. Pupils reactive. Oral mucosa moist. Neck reveals no JVD, carotid bruits, or thyromegaly. CHEST EXAMINATION: Trachea is central. Symmetrical expansion. Bibasilar diminished air entry. Lung nowak clear to auscultation and percussion. CARDIAC: Normal S1, S2 with no gallops. No murmurs ABDOMEN: Soft. Obese, non-distended, status post surgery,No guarding no rigidity. Bowel sounds normal. KIRTI drain with serosanguineous drainage Extremities: reveal no edema. No clubbing or cyanosis Neurologically awake, alert, oriented x3, with well-coordinated movements. No focal deficits noted Skin: No rash. - Labs CBC & Chem 7: 07/15/19 06:12 07/15/19 06:12 Labs: Abnormal Lab Results - Last 24 Hours (Table) 07/15/19 07/15/19 Range/Units 06:12 06:12 WBC 11.1 H (3.8-10.6) k/uL RBC 4.06 L (4.30-5.90) m/uL Hgb 12.5 L (13.0-17.5) gm/dL Hct 37.8 L (39.0-53.0) % Neutrophils # 9.6 H (1.3-7.7) k/uL Lymphocytes # 0.7 L (1.0-4.8) k/uL Carbon Dioxide 21 L (22-30) mmol/L Creatinine 0.54 L (0.66-1.25) mg/dL Glucose 149 H (74-99) mg/dL Calcium 8.1 L (8.4-10.2) mg/dL Magnesium 1.4 L (1.6-2.3) mg/dL Total Bilirubin 1.5 H (0.2-1.3) mg/dL AST 60 H (17-59) U/L Alkaline Phosphatase 127 H (38-126) U/L Total Protein 5.8 L (6.3-8.2) g/dL Albumin 3.0 L (3.5-5.0) g/dL Assessment and Plan Assessment: Epigastric abdominal pain secondary to acute recurrent pancreatitis, etiology unclear, possibly gallbladder related.status post laparoscopic subtotal cholecystectomy with lysis of adhesions. Hydrops gallbladder. Possible acute cholecystitis. Hyperbilirubinemia Atypical chest pain, in a patient with history of CAD, [place], stent placement. Ruled out ACS. Cardiology following Urinary retention COPD, stable History of DVT/PE in the past. CT angiogram is negative for pulmonary embolism currently. Hypertension Hyperlipidemia Seizure disorder Hyperlipidemia Obesity with BMI 32.9 DVT prophylaxis with heparin subcu Metabolic encephalopathy, acute, medication induced, significantly improved Plan: Continue on current medication regime ,monitoring and symptomatic treatment.pain management. Aggressive pulmonary toileting with incentive spirometer reinforced.attempting to wean off oxygen. increase ambulation as tolerated. discharge planning in progress for tomorrow pending surgery cl earance. The impression and plan of care has been dictated as directed. : I performed a history and examination of this patient, discussed the same with the dictator. I agree with the dictator's note ,documented as a scribe. Any additional findings or plans will be noted.
[2019-07-16] MEDS: SODIUM CHLORIDE 0.9% 1,000 ML IV SCH ×4 (02:55→16:20)
[2019-07-16] MEDS: HYDROmorphone 1 MG/ML 1 ML SYRINGE IVP PRN ×2 (04:17→20:36)
[2019-07-16 06:17] LABS: Basophils % (A) 0 %; Eosinophils # (A) 0.1 k/uL (0-0.7); Eosinophils % (A) 2 %; HCT 33.8 % (39.0-53.0); HGB 11.3 gm/dL (13.0-17.5); Lymphocytes # (A) 0.8 k/uL (1.0-4.8); Lymphocytes % (A) 10 %; MCH 30.9 pg (25.0-35.0); MCHC 33.6 g/dL (31.0-37.0); MCV 92.2 fL (80.0-100.0); Mean Platelet Volume 7.8; Monocytes # (A) 0.5 k/uL (0-1.0); Monocytes % (A) 6 %; Neutrophils % (A) 82 %; Platelet Count 133 k/uL (150-450); RBC 3.67 m/uL (4.30-5.90); RDW 13.7 % (11.5-15.5); WBC 8.6 k/uL (3.8-10.6)
[2019-07-16] MEDS: PANTOPRAZOLE 40 MG TABLET PO SCH (06:17)
[2019-07-16] MEDS: CARVEDILOL 12.5 MG TAB PO SCH ×2 (06:17→17:29)
[2019-07-16 06:31] LABS: ALT 26 U/L (4-49); AST 38 U/L (17-59); African American GFR (CKD) >90 (>60 ml/min/1.73 sqM); Albumin 2.7 g/dL (3.5-5.0); Alkaline Phosphatase 114 U/L (38-126); Anion Gap 10 mmol/L; Blood Urea Nitrogen 16 mg/dL (9-20); Calcium 7.9 mg/dL (8.4-10.2); Carbon Dioxide 23 mmol/L (22-30); Chloride 104 mmol/L (98-107); Glucose 176 mg/dL (74-99); Non-African American GFR(CKD) 83 (>60 ml/min/1.73 sqM); Potassium 3.7 mmol/L (3.5-5.1); Sodium 137 mmol/L (137-145); Total Bilirubin 0.8 mg/dL (0.2-1.3); Total Protein 5.4 g/dL (6.3-8.2)
[2019-07-16 09:07] VITALS: RESP 18
[2019-07-16] MEDS: ISOSORBIDE MONONITRATE ER 30 MG TAB.ER.24H PO SCH (09:46)
[2019-07-16] MEDS: ASPIRIN 81 MG PO SCH (09:47)
[2019-07-16] MEDS: TAMSULOSIN 0.4 MG CAP.ER.24H PO SCH (09:47)
[2019-07-16] MEDS: LISINOPRIL 20 MG TAB PO SCH ×2 (09:47→20:35)
[2019-07-16] MEDS: LEVOFLOXACIN 500 MG TAB PO SCH (09:47)
[2019-07-16] MEDS: PHENYTOIN SODIUM EXTENDED 100 MG CAP PO SCH ×3 (09:47→20:35)
[2019-07-16] MEDS: ALLOPURINOL 300 MG TAB PO SCH (09:47)
[2019-07-16] MEDS: ENOXAPARIN 40 MG/0.4 ML SYRINGE SQ SCH (09:47)
[2019-07-16] MEDS: ATORVASTATIN 80 MG TAB PO SCH (09:48)
--- NOTE | 2019-07-16 11:55 | P.PN ---
Subjective Progress Note Date: 07/16/19 Principal diagnosis: Cholecystitis Patient doing fairly well. Complaining of mild right-sided pain. White blood cell count normal at 8.6. Liver enzymes all improved. Tolerating diet. Afebrile. Objective - Vital Signs Vital signs: Vital Signs Temp 97.8 F 07/16/19 08:00 Pulse 77 07/16/19 08:00 Resp 18 07/16/19 08:00 BP 129/70 07/16/19 08:00 Pulse Ox 95 07/16/19 08:00 Intake & Output 07/15/19 07/16/19 07/16/19 18:59 06:59 18:59 Intake Total 600 200 240 Output Total 890 410 Balance -290 -210 240 Weight 108.9 kg 105.5 kg Intake: Intake, IV Titration 400 200 Amount Levofloxacin 500Mg-D5w 100 Pmx 500 mg In Dextrose/ Water 1 100ml.bag @ 100 mls/hr IVPB Q24HR [facility] Rx# :[id number] Magnesium Sulfate-D5w Pmx 300 1 gm In Dextrose/Water 1 100ml.bag @ 100 mls/hr IVPB Q1H [facility] Rx#: [id number] Sodium Chloride 0.9% 1, 200 000 ml @ 100 mls/hr IV . Q10H [facility] Rx#:[id number] Oral 200 240 Output: Drainage 90 60 Right Abdomen 90 60 Urine 800 350 Other: Voiding Method Indwelling Catheter Indwelling Catheter # Voids 1 1 - Exam Abdomen: Soft, nondistended, mild right upper quadrant tenderness, KIRTI drain serosanguineous - Labs CBC & Chem 7: 07/16/19 05:50 07/16/19 05:50 Labs: Abnormal Lab Results - Last 24 Hours (Table) 07/16/19 07/16/19 Range/Units 05:50 05:50 RBC 3.67 L (4.30-5.90) m/uL Hgb 11.3 L (13.0-17.5) gm/dL Hct 33.8 L (39.0-53.0) % Plt Count 133 L (150-450) k/uL Lymphocytes # 0.8 L (1.0-4.8) k/uL Glucose 176 H (74-99) mg/dL Calcium 7.9 L (8.4-10.2) mg/dL Total Protein 5.4 L (6.3-8.2) g/dL Albumin 2.7 L (3.5-5.0) g/dL Assessment and Plan (1) Acute cholecystitis Narrative/Plan: Patient seems to be improving. Continue advancing diet as tolerated. Continue increasing activity. Keep drain for now. Current Visit: Yes Status: Acute Code(s): K81.0 - ACUTE CHOLECYSTITIS SNOMED Code(s): 04420499
[2019-07-16] MEDS: traMADol 50 MG TAB PO PRN (16:17)
[2019-07-17] MEDS: SODIUM CHLORIDE 0.9% 1,000 ML IV SCH ×2 (05:30→06:54)
[2019-07-17] MEDS: traMADol 50 MG TAB PO PRN ×3 (05:30→20:51)
[2019-07-17] MEDS: CARVEDILOL 12.5 MG TAB PO SCH ×2 (06:53→17:22)
[2019-07-17] MEDS: PANTOPRAZOLE 40 MG TABLET PO SCH (06:54)
[2019-07-17] MEDS: PHENYTOIN SODIUM EXTENDED 100 MG CAP PO SCH ×3 (07:51→20:46)
[2019-07-17] MEDS: LEVOFLOXACIN 500 MG TAB PO SCH (07:51)
[2019-07-17] MEDS: ATORVASTATIN 80 MG TAB PO SCH (07:51)
[2019-07-17] MEDS: LISINOPRIL 20 MG TAB PO SCH ×2 (07:51→20:46)
[2019-07-17] MEDS: ASPIRIN 81 MG PO SCH (07:51)
[2019-07-17] MEDS: ENOXAPARIN 40 MG/0.4 ML SYRINGE SQ SCH (07:51)
[2019-07-17] MEDS: ISOSORBIDE MONONITRATE ER 30 MG TAB.ER.24H PO SCH (07:52)
[2019-07-17] MEDS: TAMSULOSIN 0.4 MG CAP.ER.24H PO SCH (07:52)
[2019-07-17] MEDS: ALLOPURINOL 300 MG TAB PO SCH (07:52)
--- NOTE | 2019-07-17 10:43 | P.PN ---
Subjective Progress Note Date: 07/17/19 Principal diagnosis: Cholecystitis patient doing fairly well. Tolerating diet. Right upper quadrant pain seems improved. He is afebrile. Objective - Vital Signs Vital signs: Vital Signs Temp 98.0 F 07/17/19 03:11 Pulse 72 07/17/19 03:11 Resp 18 07/17/19 03:11 BP 165/79 07/17/19 03:11 Pulse Ox 97 07/17/19 03:11 Intake & Output 07/16/19 07/17/19 07/17/19 18:59 06:59 18:59 Intake Total 1400 800 120 Output Total 60 1805 Balance 1340 -1005 120 Weight 111 kg Intake: Intake, IV Titration 800 800 Amount Sodium Chloride 0.9% 1, 800 800 000 ml @ 100 mls/hr IV . Q10H [facility] Rx#:[id number] Oral 600 120 Output: Drainage 60 55 Right Abdomen 60 55 Urine 1750 Other: Voiding Method Indwelling Catheter Indwelling Catheter - Exam abdomen: Soft, mild require tenderness, KIRTI drain dressing and is with questionable slight bile tinge - Labs CBC & Chem 7: 07/16/19 05:50 07/16/19 05:50 Assessment and Plan (1) Acute cholecystitis Narrative/Plan: keep drain for now. Continue diet as tolerated. Continue antibiotics. Current Visit: Yes Status: Acute Code(s): K81.0 - ACUTE CHOLECYSTITIS SNOMED Code(s): 30661813
--- NOTE | 2019-07-17 17:08 | P.PN ---
Subjective Progress Note Date: 07/16/19 Principal diagnosis: acute cholecystitis; status post laparoscopic subtotal cholecystectomy with Adhenolysis 84-year-old male with a known history of coronary artery disease with history of stent placement, history of pancreatitis, previous history of [place], hypertension, hyperlipidemia, seizure disorder, nephrolithiasis, BPH and other medical problems and obesity came to ER with complaints of abdominal pain mainly in the epigastric region and sometimes right upper quadrant. 07/16/2019 Patient is seen and evaluated in room at bedside; denies any complaint of nausea and vomiting; has been started on a low-fat diet; does complain of right upper quadrant pain controlled with pain medication; patient remains afebrile; he is status post subtotal cholecystectomy and adhenolysis; KIRTI drain remains in place; labs are reviewed and are stable with a white blood count of 8.6; hemoglobin of 11.3 and platelet count of 133; chemical profile is stable except for high blood glucose of 176 Surgery is following and recommending to continue to increase activity and advance diet as tolerated; plan is to keep the drain for now and continue to monitor Objective - Vital Signs Vital signs: Vital Signs Temp 97.8 F 07/16/19 08:00 Pulse 77 07/16/19 08:00 Resp 18 07/16/19 08:00 BP 129/70 07/16/19 08:00 Pulse Ox 95 07/16/19 08:00 Intake & Output 07/15/19 07/16/19 07/16/19 18:59 06:59 18:59 Intake Total 600 200 240 Output Total 890 410 Balance -290 -210 240 Weight 108.9 kg 105.5 kg Intake: Intake, IV Titration 400 200 Amount Levofloxacin 500Mg-D5w 100 Pmx 500 mg In Dextrose/ Water 1 100ml.bag @ 100 mls/hr IVPB Q24HR [facility] Rx# :[id number] Magnesium Sulfate-D5w Pmx 300 1 gm In Dextrose/Water 1 100ml.bag @ 100 mls/hr IVPB Q1H [facility] Rx#: [id number] Sodium Chloride 0.9% 1, 200 000 ml @ 100 mls/hr IV . Q10H [facility] Rx#:[id number] Oral 200 240 Output: Drainage 90 60 Right Abdomen 90 60 Urine 800 350 Other: Voiding Method Indwelling Catheter Indwelling Catheter # Voids 1 1 - Exam GENERAL: The patient is alert and oriented x3, not in any acute distress. Well developed, well nourished. HEENT: Pupils are round and equally reacting to light. EOMI. No scleral icterus. No conjunctival pallor. Normocephalic, atraumatic. No pharyngeal erythema. No thyromegaly. CARDIOVASCULAR: S1 and S2 present. No murmurs, rubs, or gallops. PULMONARY: Chest is clear to auscultation, no wheezing or crackles. ABDOMEN: Soft, nontender, nondistended, normoactive bowel sounds. No palpable organomegaly. MUSCULOSKELETAL: No joint swelling or deformity. EXTREMITIES: No cyanosis, clubbing, or pedal edema. NEUROLOGICAL: Gross neurological examination did not reveal any focal deficits. SKIN: No rashes. - Labs CBC & Chem 7: 07/16/19 05:50 07/16/19 05:50 Labs: Abnormal Lab Results - Last 24 Hours (Table) 07/16/19 07/16/19 Range/Units 05:50 05:50 RBC 3.67 L (4.30-5.90) m/uL Hgb 11.3 L (13.0-17.5) gm/dL Hct 33.8 L (39.0-53.0) % Plt Count 133 L (150-450) k/uL Lymphocytes # 0.8 L (1.0-4.8) k/uL Glucose 176 H (74-99) mg/dL Calcium 7.9 L (8.4-10.2) mg/dL Total Protein 5.4 L (6.3-8.2) g/dL Albumin 2.7 L (3.5-5.0) g/dL Assessment and Plan Assessment: 1. Acute cholecystitis; status post laparoscopic subtotal cholecystectomy - Continue with KIRTI drain; advance diet as tolerated; increase activity - Optimal pain control - surgical prophylaxis with Levaquin 500 mg daily 2. Hyperglycemia; no history of diabetes; we will continue to monitor Accu- Cheks with insulin sliding scale if needed 3. Hypertension; stable on Coreg 25 mg twice a day, Imdur 30 mg daily, tima nopril 20 mg twice a day 4. Hyperlipidemia; Lipitor 80 mg daily 5. Seizure disorder; Dilantin 200 mg 3 times a day 6. DVT prophylaxis; subcu Lovenox CODE STATUS; full code
--- NOTE | 2019-07-17 18:33 | P.PN ---
Subjective Progress Note Date: 07/17/19 Principal diagnosis: acute cholecystitis; status post laparoscopic subtotal cholecystectomy with Adhenolysis 84-year-old male with a known history of coronary artery disease with history of stent placement, history of pancreatitis, previous history of [place], hypertension, hyperlipidemia, seizure disorder, nephrolithiasis, BPH and other medical problems and obesity came to ER with complaints of abdominal pain mainly in the epigastric region and sometimes right upper quadrant. 07/16/2019 Patient is seen and evaluated in room at bedside; denies any complaint of nausea and vomiting; has been started on a low-fat diet; does complain of right upper quadrant pain controlled with pain medication; patient remains afebrile; he is status post subtotal cholecystectomy and adhenolysis; KIRTI drain remains in place; labs are reviewed and are stable with a white blood count of 8.6; hemoglobin of 11.3 and platelet count of 133; chemical profile is stable except for high blood glucose of 176 Surgery is following and recommending to continue to increase activity and advance diet as tolerated; plan is to keep the drain for now and continue to monitor 07/17/2019 Patient is seen and evaluated sitting up in the bedside chair; complains about right chest soreness; reports that he laid on his right side with heart monitor in his pocket which caused chest soreness; reports improvement Patient has been evaluated by surgery and is recommended to continue with advancing diet as tolerated, increasing activity and keep drain in for now Objective - Vital Signs Vital signs: Vital Signs Temp 98.4 F 07/17/19 12:10 Pulse 71 07/17/19 12:10 Resp 18 07/17/19 12:10 BP 140/72 07/17/19 12:10 Pulse Ox 96 07/17/19 12:10 Intake & Output 07/16/19 07/17/19 07/17/19 18:59 06:59 18:59 Intake Total 1400 800 240 Output Total 60 1805 1000 Balance 1340 -1005 -760 Weight 111 kg Intake: Intake, IV Titration 800 800 Amount Sodium Chloride 0.9% 1, 800 800 000 ml @ 100 mls/hr IV . Q10H [facility] Rx#:[id number] Oral 600 240 Output: Drainage 60 55 Right Abdomen 60 55 Urine 1750 1000 Other: Voiding Method Indwelling Catheter Indwelling Catheter Indwelling Catheter - Exam GENERAL: The patient is alert and oriented x3, not in any acute distress. Well developed, well nourished. HEENT: Pupils are round and equally reacting to light. EOMI. No scleral icterus. No conjunctival pallor. Normocephalic, atraumatic. No pharyngeal erythema. No thyromegaly. CARDIOVASCULAR: S1 and S2 present. No murmurs, rubs, or gallops. PULMONARY: Chest is clear to auscultation, no wheezing or crackles. ABDOMEN: Soft, nontender, nondistended, normoactive bowel sounds. No palpable organomegaly. MUSCULOSKELETAL: No joint swelling or deformity. EXTREMITIES: No cyanosis, clubbing, or pedal edema. NEUROLOGICAL: Gross neurological examination did not reveal any focal deficits. SKIN: No rashes. - Labs CBC & Chem 7: 07/16/19 05:50 07/16/19 05:50 Assessment and Plan Assessment: 1. Acute cholecystitis; status post laparoscopic subtotal cholecystectomy - Continue with KIRTI drain; advance diet as tolerated; increase activity - Optimal pain control - surgical prophylaxis with Levaquin 500 mg daily 2. Hyperglycemia; no history of diabetes; we will continue to monitor Accu- Cheks with insulin sliding scale if needed 3. Hypertension; stable on Coreg 25 mg twice a day, Imdur 30 mg daily, lisinopril 20 mg twice a day 4. Hyperlipidemia; Lipitor 80 mg daily 5. Seizure disorder; Dilantin 200 mg 3 times a day 6. DVT prophylaxis; subcu Lovenox CODE STATUS; full code
[2019-07-17] MEDS: HYDROmorphone 1 MG/ML 1 ML SYRINGE IVP PRN (23:09)
[2019-07-18] MEDS: SODIUM CHLORIDE 0.9% 1,000 ML IV SCH ×2 (05:02→08:35)
[2019-07-18 05:48] LABS: Basophils % (A) 0 %; Eosinophils # (A) 0.1 k/uL (0-0.7); Eosinophils % (A) 2 %; HCT 32.5 % (39.0-53.0); HGB 11.1 gm/dL (13.0-17.5); Lymphocytes % (A) 15 %; MCH 30.9 pg (25.0-35.0); MCV 90.9 fL (80.0-100.0); Mean Platelet Volume 7.4; Monocytes # (A) 0.4 k/uL (0-1.0); Monocytes % (A) 6 %; Neutrophils # (A) 4.8 k/uL (1.3-7.7); Neutrophils % (A) 75 %; Platelet Count 188 k/uL (150-450); RBC 3.57 m/uL (4.30-5.90); RDW 13.6 % (11.5-15.5); WBC 6.4 k/uL (3.8-10.6)
[2019-07-18 06:04] LABS: African American GFR (CKD) >90 (>60 ml/min/1.73 sqM); Anion Gap 8 mmol/L; Blood Urea Nitrogen 5 mg/dL (9-20); Carbon Dioxide 26 mmol/L (22-30); Chloride 107 mmol/L (98-107); Glucose 157 mg/dL (74-99); Non-African American GFR(CKD) >90 (>60 ml/min/1.73 sqM); Potassium 3.3 mmol/L (3.5-5.1); Sodium 141 mmol/L (137-145)
[2019-07-18] MEDS: CARVEDILOL 12.5 MG TAB PO SCH (06:26)
[2019-07-18] MEDS: PANTOPRAZOLE 40 MG TABLET PO SCH (06:26)
[2019-07-18] MEDS: ENOXAPARIN 40 MG/0.4 ML SYRINGE SQ SCH (08:30)
[2019-07-18] MEDS: ASPIRIN 81 MG PO SCH ×2 (08:31→08:35)
[2019-07-18] MEDS: ATORVASTATIN 80 MG TAB PO SCH (08:31)
[2019-07-18] MEDS: TAMSULOSIN 0.4 MG CAP.ER.24H PO SCH (08:31)
[2019-07-18] MEDS: POTASSIUM CHLORIDE ER 20 MEQ TAB.ER PO SCH ×2 (08:31→11:49)
[2019-07-18] MEDS: LEVOFLOXACIN 500 MG TAB PO SCH (08:31)
[2019-07-18] MEDS: ALLOPURINOL 300 MG TAB PO SCH (08:31)
[2019-07-18] MEDS: ISOSORBIDE MONONITRATE ER 30 MG TAB.ER.24H PO SCH (08:31)
[2019-07-18] MEDS: LISINOPRIL 20 MG TAB PO SCH (08:31)
[2019-07-18] MEDS: PHENYTOIN SODIUM EXTENDED 100 MG CAP PO SCH (08:31)
[2019-07-18 09:46] VITALS: BP 152/83; PULSE 64; TEMP 97.4
--- NOTE | 2019-07-18 10:42 | P.DS ---
Providers Date of admission: 07/09/19 14:34 Expected date of discharge: 07/18/19 Attending physician: Roel Lopez Consults: 07/09/19 14:34 Consult Physician Urgent Consulting Provider: Gary Jimenes Consult Reason/Comments: nstemi Do you want consulting provider notified?: Yes 07/10/19 12:01 Consult Physician Routine Consulting Provider: Supriya Lion Consult Reason/Comments: Distended gallbladder Do you want consulting provider notified?: Yes 07/12/19 18:50 Consult Physician Routine Consulting Provider: Devon Jeffrey Consult Reason/Comments: retention hematuria Do you want consulting provider notified?: Yes, Notify in am Primary care physician: Roel Lopez [facility] Course: Final Diagnoses: Epigastric abdominal pain secondary to acute recurrent pancreatitis, etiology unclear, suspect gallbladder related. Hydrops gallbladder. Acute cholecystitis. status post laparoscopic subtotal cholecystectomy with lysis of adhesions. Hyperbilirubinemia Atypical chest pain, in a patient with history of CAD, FL, stent placement. Ruled out ACS. Cardiology following Urinary retention, urology following. COPD, stable History of DVT/PE in the past. CT angiogram is negative for pulmonary embolism. Hypertension Hyperlipidemia Seizure disorder Hyperlipidemia Obesity with BMI 32.9 Metabolic encephalopathy, acute, medication induced, resolved. Hospital course:Patient is a 84-year-old male with a known history of coronary artery disease with history of stent placement, history of pancreatitis, previous history of FL, hypertension, hyperlipidemia, seizure disorder, nephrolithiasis, BPH and other medical problems and obesity came to ER with complaints of abdominal pain mainly in the epigastric region and sometimes right upper quadrant.. Pain is associated with nausea. No episodes of vomiting. Patient started having symptoms since yesterday evening. Denied any radiation of the pain to the back. But patient does say that the pain is going inside the abdomen. No headache or dizziness or lightheadedness. Denied any leg swelling. No orthopnea no PND. CT angiogram showed pulmonary trunk and through lobar branches. Segmental through subsegmental branches cannot be accurately assessed. EKG on admission showed sinus rhythm. PVCs noted. Ultrasound abdomen report is pending at this time. Troponin 0.115, 0.083 and 0.080. Lipase level 1516 07 10 2019 Patient is still complaining of abdominal pain mainly in the epigastric and right upper quadrant. Ultrasound of the abdomen showed hydrops gallbladder. HIDA scan was ordered. Gen. surgery was consulted. Patient is currently nothing by mouth. Anticoagulation is on hold. Cardiology and general surgery is following. 07/11/2019 NPO, maintained on IV fluid hydration. Reports abdominal pain has shifted to only right lower quadrant abdominal pain. Denies nausea, vomiting .Early this morning bladder scanned for 750 MLS, required straight cath.,maintained on Flomax. Complains of right lower quadrant abdominal pain. Attempted HIDA scan unable to lay flat secondary to his abdominal pain. T bili increased up to 1.5. Significant improvement in lipase, down to 415. KATELYNN screen negative. Further recommendations per surgery pending. Afebrile, WBC elevated at 12.8. 07/12/2019 continues on IV fluid hydration, NPO. Repeat of HIDA scan scheduled for this morning. Afebrile, normal WBC. LFTs within normal limits, including total bili, 1.3. Lipase has normalized. KATELYNN screen negative. Denies abdominal pain this morning. Mann catheter placed yesterday for urinary retention. 07/13/2019 lethargic from receiving Dilaudid and Ativan throughout the night. Denies nausea, vomiting. Denies abdominal pain. Mann inserted yesterday for urinary retention. HIDA scan suboptimal, reporting overall findings compatible with acute cystitis Evaluated by surgery, scheduled for cholecystectomy tomorrow. Afebrile, normal WBC. 07/14/2019 significant improvement in sensorium, alert and oriented 3. Scheduled for laparoscopic cholecystectomy today.VSS. Potassium 3.3, potassium replacement protocol ordered. Denies chest pain, palpitations or increasing shortness of breath. 07/15/2019 status post laparoscopic subtotal cholecystectomy with lysis of adhesions, tolerated procedure well. Pain controlled.tolerating low fat diet with no nausea vomiting or diarrhea. Passing flatus.maintaining O2 sats in the 90s on 2 L nasal cannula.afebrile,WBC 11.1. significant clinical improvement. Patient declined subacute rehab and requesting discharge this morning. Patient will be discharged home today in a stable condition with guarded prognosis, pending surgery and urology final DC recommendations and clearance. Antibiotics and pain management as per surgery. EXAMINATION: GENERAL: alert and oriented 3, no acute distress CHEST EXAMINATION: Lung nowak clear to auscultation and percussion. diminished bases. CARDIAC: Normal S1, S2 with no gallops. No murmurs ABDOMEN: Soft. Obese, non-distended, status post surgery,No guarding no rigidity. Bowel sounds normal. Neurologically: No focal deficits noted The impression and plan of care has been dictated as directed. : I performed a history and examination of this patient, discussed the same with the dictator. I agree with the dictator's note ,documented as a scribe. Any additional findings or plans will be noted. Patient Condition at Discharge: Stable Plan - Discharge Summary Discharge Rx Participant: Yes New Discharge Prescriptions: New Isosorbide Mononitrate ER [Imdur] 30 mg PO DAILY #30 tab.er.24h Acetaminophen Tab [Tylenol] 650 mg PO Q6HR PRN tab PRN Reason: Mild Pain Or Fever >= 100.5 Continue Omeprazole [PriLOSEC] 20 mg PO DAILY Atorvastatin [Lipitor] 80 mg PO DAILY Allopurinol [Zyloprim] 300 mg PO DAILY Tamsulosin [Flomax] 0.4 mg PO DAILY Apixaban [Eliquis] 5 mg PO BID #60 tab Aspirin 81 mg PO DAILY #30 chew Phenytoin Sodium Extended [Dilantin] 200 mg PO TID Metoprolol Tartrate [Lopressor] 25 mg PO DAILY Carvedilol [Coreg] 25 mg PO BID Lisinopril [Zestril] 20 mg PO BID #60 tab Discharge Medication List Allopurinol [Zyloprim] 300 mg PO DAILY 09/23/16 [History] Atorvastatin [Lipitor] 80 mg PO DAILY 09/23/16 [History] Omeprazole [PriLOSEC] 20 mg PO DAILY 09/23/16 [History] Tamsulosin [Flomax] 0.4 mg PO DAILY 09/23/16 [History] Apixaban [Eliquis] 5 mg PO BID #60 tab 09/26/16 [Rx] Aspirin 81 mg PO DAILY #30 chew 09/26/16 [Rx] Carvedilol [Coreg] 25 mg PO BID 11/21/17 [History] Metoprolol Tartrate [Lopressor] 25 mg PO DAILY 11/21/17 [History] Phenytoin Sodium Extended [Dilantin] 200 mg PO TID 11/21/17 [History] Lisinopril [Zestril] 20 mg PO BID #60 tab 11/08/18 [Rx] Acetaminophen Tab [Tylenol] 650 mg PO Q6HR PRN tab 07/18/19 [Rx] Isosorbide Mononitrate ER [Imdur] 30 mg PO DAILY #30 tab.er.24h 07/18/19 [Rx] Follow up Appointment(s)/Referral(s): Nguyễn Anderson MD [STAFF PHYSICIAN] - 3 Days Roel Lopez DO [Primary Care Provider] - 3 Days [facility], [NON-STAFF] - Ambulatory/Diagnostic Orders: Complete Blood Count w/diff [LAB.AMB] Time Frame: 3 Days, Location: None Selected Patient Instructions/Handouts: Blas-Torres Drain Care (DC), Laparoscopic Cholecystectomy (DC) Activity/Diet/Wound Care/Special Instructions: pain management, antibiotics as per surgery. Continue antibiotics upon discharge x1week per Dr Lion. IS every hour 10 while awake. patient is declining subacute rehab.
[2019-07-18 10:59] LABS: ALT 29 U/L (4-49); AST 51 U/L (17-59); Albumin 2.8 g/dL (3.5-5.0); Alkaline Phosphatase 121 U/L (38-126); Bilirubin, Delta 0.6 mg/dL (0.0-0.2); Bilirubin,Unconjugated 0.3 mg/dL (0.0-1.1); Total Bilirubin 0.9 mg/dL (0.2-1.3); Total Protein 5.5 g/dL (6.3-8.2)
--- NOTE | 2019-07-18 12:01 | P.PN ---
Subjective Progress Note Date: 07/18/19 CHIEF COMPLAINT: Distended gallbladder HISTORY OF PRESENT ILLNESS: patient is status post robotic-assisted laparoscopic subtotal cholecystectomy and lysis of adhesions. Patient examined at the bedside with Dr. Lion. Patient reports his pain is tolerable. Tolerating diet. Denies nausea or vomiting. PHYSICAL EXAM: VITALS: Reviewed CONSTITUTIONAL: Well developed in no acute distress. EYES: Conjuctivae without sclera icterus. Pupils are equally round and reactive to light. Extraocular movements grossly intact. HEAD, EARS, NOSE, THROAT: Moist buccal mucosa. Head is atraumatic, normocephalic. Hears conversational speech. No nasal drainage. NECK: Supple. RESPIRATORY: Non-labored respirations and equal bilateral excursions. No gross wheezes. CARDIOVASCULAR: Palpable 2+ radial pulses. ABDOMEN: Soft. Nondistended. appropriate surgical tenderness. KIRTI drain with serosanguineous drainage. MUSCULOSKELETAL: Nail and fingers with good capillary refill. SKIN: Warm and well perfused with good skin turgor. NEUROLOGIC: Cranial nerves I through XII grossly intact. Sensation upper and extremities intact. No focal or lateralizing signs. PSYCH: Appropriate affect. Alert and oriented to person, place and time. Displays appropriate insight. ASSESSMENT: 1. Right upper quadrant abdominal pain, acute purulent hydrops cholecystitis 2. Abnormal computed tomography scan of distending gallbladder 3. Acute pancreatitis, recurrent 4. COPD 5. Atypical chest pain with recent elevation troponins 6. Elevated bilirubin 7. Acute cholecystitis 8. Urinary retention PLAN: -Stable for discharge from a surgical standpoint -KIRTI drain removed at the bedside by Dr. Lion -No antibiotics required at time of discharge per Dr. Lion -Tylenol when necessary at discharge for pain -Patient to follow-up with Dr. Lion outpatient 08/04/2019 Nurse practitioner note has been reviewed by physician. Signing provider agrees with the documented findings, assessment, and plan of care. Objective - Vital Signs Vital signs: Vital Signs Temp 97.4 F L 07/18/19 08:15 Pulse 64 07/18/19 08:15 Resp 18 07/18/19 08:15 BP 152/83 07/18/19 08:15 Pulse Ox 92 L 07/18/19 08:15 Intake & Output 07/17/19 07/18/19 07/18/19 18:59 06:59 18:59 Intake Total 480 120 Output Total 1045 2350 Balance -565 -2350 120 Weight 110.9 kg Intake: Oral 480 120 Output: Drainage 45 Right Abdomen 45 Urine 1000 2350 Other: Voiding Method Indwelling Catheter Indwelling Catheter Indwelling Catheter - Labs CBC & Chem 7: 07/18/19 05:20 07/18/19 05:20 Labs: Abnormal Lab Results - Last 24 Hours (Table) 07/18/19 07/18/19 Range/Units 05:20 05:20 RBC 3.57 L (4.30-5.90) m/uL Hgb 11.1 L (13.0-17.5) gm/dL Hct 32.5 L (39.0-53.0) % Potassium 3.3 L (3.5-5.1) mmol/L BUN 5 L (9-20) mg/dL Creatinine 0.46 L (0.66-1.25) mg/dL Glucose 157 H (74-99) mg/dL Calcium 8.0 L (8.4-10.2) mg/dL Delta Bilirubin 0.6 H (0.0-0.2) mg/dL Total Protein 5.5 L (6.3-8.2) g/dL Albumin 2.8 L (3.5-5.0) g/dL
[2019-07-18] MEDS ORDERED: APIXABAN 5 MG TAB PO SCH (21:00)
== END 2019-07-18 12:33 | disposition home health service (06) | DRG 417 ==
LOC: EC 11:51 → 3SCARD 14:34
PROVIDERS: ADMIT Family Medicine; ATTEND Family Medicine
PROC: 0FN84ZZ Release Cystic Duct, Percutaneous Endoscopic Approach (ICD-10-PCS; principal; 2019-07-14 14:55)
PROC: 8E0W4CZ Robotic Assisted Procedure of Trunk Region, Percutaneous Endoscopic Approach (ICD-10-PCS; principal; 2019-07-14 14:55)
PROC: 0FT44ZZ Resection of Gallbladder, Percutaneous Endoscopic Approach (ICD-10-PCS; principal; 2019-07-14 14:55)
DX: K81.2 Acute cholecystitis with chronic cholecystitis (principal); K85.90 Acute pancreatitis without necrosis or infection, unspecified; G92 Toxic encephalopathy; K82.1 Hydrops of gallbladder; K82.0 Obstruction of gallbladder; I50.32 Chronic diastolic (congestive) heart failure; M10.9 Gout, unspecified; T40.2X5A Adverse effect of other opioids, initial encounter; T42.4X5A Adverse effect of benzodiazepines, initial encounter; R33.9 Retention of urine, unspecified; N40.0 Benign prostatic hyperplasia without lower urinary tract symptoms; R07.89 Other chest pain; R53.83 Other fatigue; R79.89 Other specified abnormal findings of blood chemistry; I11.9 Hypertensive heart disease without heart failure; E66.9 Obesity, unspecified; G40.909 Epilepsy, unspecified, not intractable, without status epilepticus; F03.90 Unspecified dementia, unspecified severity, without behavioral disturbance, psychotic disturbance, mood disturbance, and anxiety; E78.5 Hyperlipidemia, unspecified; I25.10 Atherosclerotic heart disease of native coronary artery without angina pectoris; I25.5 Ischemic cardiomyopathy; I27.20 Pulmonary hypertension, unspecified; J44.9 Chronic obstructive pulmonary disease, unspecified; K21.9 Gastro-esophageal reflux disease without esophagitis; N20.0 Calculus of kidney; I25.2 Old myocardial infarction; Z68.32 Body mass index [BMI] 32.0-32.9, adult; Z79.01 Long term (current) use of anticoagulants; Z79.82 Long term (current) use of aspirin; Z79.899 Other long term (current) drug therapy; Z82.49 Family history of ischemic heart disease and other diseases of the circulatory system; Z87.442 Personal history of urinary calculi; Z86.011 Personal history of benign neoplasm of the brain; Z95.5 Presence of coronary angioplasty implant and graft
CPT/HCPCS: 36415; 71275; 74177; 76705; 78226; 78227; 80048; 80053; 80061; 80076; 81001; 83690; 83735; 83880; 84100; 84132; 84478; 84484; 85025; 85610; 85730; 86038; 88304; 93005; 93306; 96361; 96374; 96376; 99291

== ENCOUNTER 2020-01-10 08:13 | Emergency (ER) | payer MEDICARE, BC ==
[2020-01-10 08:18] VITALS: TEMP 98
[2020-01-10] MEDS ORDERED: SODIUM CHLORIDE 0.9% 1,000 ML IV STA (08:38)
--- NOTE | 2020-01-10 08:44 | ED ---
General Adult HPI - General Chief complaint: Dizziness Stated complaint: dizziness Time Seen by Provider: 01/10/20 08:15 Source: patient, EMS, RN notes reviewed Mode of arrival: EMS Limitations: no limitations - History of Present Illness Initial comments: Patient is a pleasant 84-year-old male presenting to the emergency Department with near syncopal episode. Patient set up and felt lightheaded. Patient almost blacked out. Patient started to fall. Patient did not black out. Patient states symptoms are now resolved and he is symptom-free at this time. Patient states he was doing some yard work yesterday and was not drinking enough fluids. Patient had similar symptoms a couple times previously associated with heart attack. Patient denies having any chest discomfort or difficulty breathing. Patient is currently symptom-free. No leg pain or leg swelling. No abdominal pain. No confusion. No weakness. - Related Data Home Medications Medication Instructions Recorded Confirmed Allopurinol [Zyloprim] 300 mg PO DAILY 09/23/16 07/09/19 Atorvastatin [Lipitor] 80 mg PO DAILY 09/23/16 07/09/19 Omeprazole [PriLOSEC] 20 mg PO DAILY 09/23/16 07/09/19 Tamsulosin [Flomax] 0.4 mg PO DAILY 09/23/16 07/09/19 Carvedilol [Coreg] 25 mg PO BID 11/21/17 07/09/19 Phenytoin Sodium Extended 200 mg PO TID 11/21/17 07/09/19 [Dilantin] Previous Rx's Medication Instructions Recorded Apixaban [Eliquis] 5 mg PO BID #60 tab 09/26/16 Aspirin 81 mg PO DAILY #30 chew 09/26/16 Lisinopril [Zestril] 20 mg PO BID #60 tab 11/08/18 Acetaminophen Tab [Tylenol] 650 mg PO Q6HR PRN tab 07/18/19 Isosorbide Mononitrate ER [Imdur] 30 mg PO DAILY #30 tab.er.24h 07/18/19 Allergies Allergy/AdvReac Type Severity Reaction Status Date / Time Penicillins Allergy Rash/Hives Verified 07/14/19 14:36 Review of Systems ROS Statement: Those systems with pertinent positive or pertinent negative responses have been documented in the HPI. ROS Other: All systems not noted in ROS Statement are negative. Constitutional: Denies: fever Eyes: Denies: eye pain ENT: Denies: ear pain Respiratory: Denies: cough Cardiovascular: Denies: chest pain Endocrine: Denies: fatigue Gastrointestinal: Denies: abdominal pain Genitourinary: Denies: dysuria Musculoskeletal: Denies: back pain Skin: Denies: rash Neurological: Denies: weakness Past Medical History Past Medical History: Coronary Artery Disease (CAD), COPD, Hyperlipidemia, Hypertension, Myocardial Infarction (CT), Pneumonia, Renal Disease, Seizure Disorder Additional Past Medical History / Comment(s): Pt had recent bilateral pneumonia- completed ABX yesterday. 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 Past medical records indicate HTN, high cholesterol, BPH and COPD, but pt and family deny these-see pt med list. 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 Past trauma Past Anesthesia/Blood Transfusion Reactions: No Reported Reaction Date of Last Stent Placement:: 2014 Past Psychological History: No Psychological Hx Reported Smoking Status: Never smoker Past Alcohol Use History: None Reported Past Drug Use History: None Reported - Past Family History Mother Additional Family Medical History / Comment(s): Mother had mental health problems. Father Family Medical History: No Reported History General Exam Limitations: no limitations General appearance: alert, in no apparent distress Head exam: Present: normocephalic Eye exam: Present: normal appearance, PERRL ENT exam: Present: normal oropharynx Neck exam: Present: normal inspection. Absent: tenderness Respiratory exam: Present: normal lung sounds bilaterally Cardiovascular Exam: Present: regular rate, normal rhythm Expanded Peripheral pulses: 2+: Radial (R), Radial (L), Dorsalis Pedis (R), Dorsalis Pedis (L) GI/Abdominal exam: Present: soft. Absent: tenderness Extremities exam: Present: normal inspection Neurological exam: Present: alert, oriented X3, CN II-XII intact. Absent: motor sensory deficit Expanded Neurological exam: Present: protecting the airway Patient oriented to: Present: person, place, time Speech: Present: fluid speech Cranial nerves: EOM's Intact: Normal Motor strength exam: RUE: 5, LUE: 5, RLE: 5, LLE: 5 (Somewhat limited secondary to chronic leg pain) Eye Response: (4) open spontaneously Motor Response: (6) obeys commands Verbal Response: (5) oriented Psychiatric exam: Present: normal affect, normal mood Skin exam: Present: normal color Course Vital Signs 01/10/20 01/10/20 01/10/20 08:15 08:18 09:25 Temperature 98.0 F Pulse Rate 60 72 Respiratory 16 24 Rate Blood Pressure 151/102 Blood Pressure 150/89 [Left Arm Sitting] Blood Pressure 140/99 [Left Arm Standing] Blood Pressure 139/99 [Left Arm Supine] O2 Sat by Pulse 98 100 Oximetry EKG Findings - EKG Comments: EKG Findings:: Normal sinus rhythm 64. OH 176. QRS 84. QT 412. QTC 425. Normal axis. Normal QRS. No acute ST change. Medical Decision Making - Medical Decision Making Patient reevaluated and symptom-free. Patient updated on results. Patient recommended admission. Patient is advised to have further testing and monitoring. Patient is made aware that heart attack has not been completely ruled out at this time secondary to limitations and testing. Patient does demonstrate medical decision making. Patient states his has severe dementia and he needs to go home to take care of her. Patient is agreeable to follow-up. Patient is agreeable to return if symptoms worsen. - Lab Data Result diagrams: 01/10/20 08:28 01/10/20 08:28 Lab Results 01/10/20 01/10/20 01/10/20 Range/Units 08:28 08:28 08:28 WBC 5.2 (3.8-10.6) k/uL RBC 4.15 L (4.30-5.90) m/uL Hgb 13.2 (13.0-17.5) gm/dL Hct 38.8 L (39.0-53.0) % MCV 93.5 (80.0-100.0) fL MCH 31.8 (25.0-35.0) pg MCHC 34.0 (31.0-37.0) g/dL RDW 13.9 (11.5-15.5) % Plt Count 138 L (150-450) k/uL Neutrophils % 57 % Lymphocytes % 35 % Monocytes % 6 % Eosinophils % 2 % Basophils % 0 % Neutrophils # 3.0 (1.3-7.7) k/uL Lymphocytes # 1.8 (1.0-4.8) k/uL Monocytes # 0.3 (0-1.0) k/uL Eosinophils # 0.1 (0-0.7) k/uL Basophils # 0.0 (0-0.2) k/uL PT 10.7 (9.0-12.0) sec INR 1.0 (<1.2) APTT 24.7 (22.0-30.0) sec Sodium 143 (137-145) mmol/L Potassium 4.8 (3.5-5.1) mmol/L Chloride 111 H (98-107) mmol/L Carbon Dioxide 25 (22-30) mmol/L Anion Gap 7 mmol/L BUN 14 (9-20) mg/dL Creatinine 0.56 L (0.66-1.25) mg/dL Est GFR (CKD-EPI)AfAm >90 (>60 ml/min/1.73 sqM) Est GFR (CKD-EPI)NonAf >90 (>60 ml/min/1.73 sqM) Glucose 148 H (74-99) mg/dL Calcium 8.6 (8.4-10.2) mg/dL Total Bilirubin 0.5 (0.2-1.3) mg/dL AST 22 (17-59) U/L ALT 17 (4-49) U/L Alkaline Phosphatase 128 H (38-126) U/L Troponin I (0.000-0.034) ng/mL Total Protein 6.6 (6.3-8.2) g/dL Albumin 3.9 (3.5-5.0) g/dL 01/10/20 Range/Units 08:28 WBC (3.8-10.6) k/uL RBC (4.30-5.90) m/uL Hgb (13.0-17.5) gm/dL Hct (39.0-53.0) % MCV (80.0-100.0) fL MCH (25.0-35.0) pg MCHC (31.0-37.0) g/dL RDW (11.5-15.5) % Plt Count (150-450) k/uL Neutrophils % % Lymphocytes % % Monocytes % % Eosinophils % % Basophils % % Neutrophils # (1.3-7.7) k/uL Lymphocytes # (1.0-4.8) k/uL Monocytes # (0-1.0) k/uL Eosinophils # (0-0.7) k/uL Basophils # (0-0.2) k/uL PT (9.0-12.0) sec INR (<1.2) APTT (22.0-30.0) sec Sodium (137-145) mmol/L Potassium (3.5-5.1) mmol/L Chloride (98-107) mmol/L Carbon Dioxide (22-30) mmol/L Anion Gap mmol/L BUN (9-20) mg/dL Creatinine (0.66-1.25) mg/dL Est GFR (CKD-EPI)AfAm (>60 ml/min/1.73 sqM) Est GFR (CKD-EPI)NonAf (>60 ml/min/1.73 sqM) Glucose (74-99) mg/dL Calcium (8.4-10.2) mg/dL Total Bilirubin (0.2-1.3) mg/dL AST (17-59) U/L ALT (4-49) U/L Alkaline Phosphatase (38-126) U/L Troponin I <0.012 (0.000-0.034) ng/mL Total Protein (6.3-8.2) g/dL Albumin (3.5-5.0) g/dL - Radiology Data Radiology results: report reviewed (Computed tomography scan of the brain reveals degenerative and nonspecific white matter changes.), image reviewed (Chest x-ray shows no acute process) Disposition Clinical Impression: Dizziness Disposition: Left Against Medical Advice Instructions (If sedation given, give patient instructions): Dizziness (ED), Near Syncope (ED) Additional Instructions: Please follow-up with primary care physician as soon as possible, even today or tomorrow. It was recommended that to stay in the hospital however you have refuses this and decided to leave AGAINST MEDICAL ADVICE. Return for any chest pain, dizziness, feeling like your about to pass out, change or worsening in symptoms or other concerns. Is patient prescribed a controlled substance at d/c from ED?: No Referrals: Roel Lopez DO [Primary Care Provider] - 1-2 days Time of Disposition: 10:39
[2020-01-10 08:49] LABS: Basophils % (A) 0 %; Eosinophils # (A) 0.1 k/uL (0-0.7); Eosinophils % (A) 2 %; HCT 38.8 % (39.0-53.0); HGB 13.2 gm/dL (13.0-17.5); Lymphocytes # (A) 1.8 k/uL (1.0-4.8); Lymphocytes % (A) 35 %; MCH 31.8 pg (25.0-35.0); MCV 93.5 fL (80.0-100.0); Mean Platelet Volume 7.8; Monocytes # (A) 0.3 k/uL (0-1.0); Monocytes % (A) 6 %; Neutrophils % (A) 57 %; Platelet Count 138 k/uL (150-450); RBC 4.15 m/uL (4.30-5.90); RDW 13.9 % (11.5-15.5); WBC 5.2 k/uL (3.8-10.6)
[2020-01-10 08:58] LABS: Partial Thromboplastin Time 24.7 sec (22.0-30.0); Prothrombin Time 10.7 sec (9.0-12.0)
[2020-01-10 09:02] LABS: ALT 17 U/L (4-49); AST 22 U/L (17-59); African American GFR (CKD) >90 (>60 ml/min/1.73 sqM); Albumin 3.9 g/dL (3.5-5.0); Alkaline Phosphatase 128 U/L (38-126); Anion Gap 7 mmol/L; Blood Urea Nitrogen 14 mg/dL (9-20); Calcium 8.6 mg/dL (8.4-10.2); Carbon Dioxide 25 mmol/L (22-30); Chloride 111 mmol/L (98-107); Glucose 148 mg/dL (74-99); Non-African American GFR(CKD) >90 (>60 ml/min/1.73 sqM); Potassium 4.8 mmol/L (3.5-5.1); Sodium 143 mmol/L (137-145); Total Bilirubin 0.5 mg/dL (0.2-1.3); Total Protein 6.6 g/dL (6.3-8.2)
--- NOTE | 2020-01-10 09:11 | CT ---
EXAMINATION TYPE: CT brain wo con DATE OF EXAM: 01/10/2020 COMPARISON: None HISTORY: syncope, history of benign brain tumor CT DLP: 1099.4 mGycm Automated exposure control for dose reduction was used. FINDINGS: There is ectasia of the vertebral basilar system. Intracranial atherosclerotic changes are noted. Calcification the basal ganglia noted. Moderate generalized degenerative change. Periventricular low- attenuation seen. Findings most likely in the basis of remote microvascular ischemia. Changes of chronograph operator artur right mastoiditis. IMPRESSION: DEGENERATIVE AND NONSPECIFIC WHITE MATTER CHANGES MOST TYPICAL REMOTE MICROVASCULAR ISCHEMIA.
--- NOTE | 2020-01-10 09:19 | XR ---
EXAMINATION TYPE: XR chest 2V DATE OF EXAM: 01/10/2020 COMPARISON: 04/27/2019 TECHNIQUE: PA and lateral views submitted. HISTORY: Syncope FINDINGS: The lungs are clear and there is no pneumothorax, pleural effusion, or focal pneumonia. Hypertrophi c and degenerative change the spine. There is hyperinflation. Diffuse osteopenia with arthropathy of the shoulders. Biapical pleural thickening. No overt failure. Heart size stable. IMPRESSION: 1. No acute process.
[2020-01-10 11:07] VITALS: BP 136/86; PULSE 86; RESP 16
== END 2020-01-10 11:05 | disposition left against medical advice (07) ==
LOC: EC 08:13
DX: R42 Dizziness and giddiness (principal); R55 Syncope and collapse; F03.90 Unspecified dementia, unspecified severity, without behavioral disturbance, psychotic disturbance, mood disturbance, and anxiety; G40.909 Epilepsy, unspecified, not intractable, without status epilepticus; I25.10 Atherosclerotic heart disease of native coronary artery without angina pectoris; E78.5 Hyperlipidemia, unspecified; I10 Essential (primary) hypertension; N40.0 Benign prostatic hyperplasia without lower urinary tract symptoms; I25.2 Old myocardial infarction; G89.29 Other chronic pain; M79.606 Pain in leg, unspecified; Z88.0 Allergy status to penicillin; Z79.899 Other long term (current) drug therapy; Z95.5 Presence of coronary angioplasty implant and graft
CPT/HCPCS: 36415; 70450; 71046; 80053; 84484; 85025; 85610; 85730; 93005; 99285

== ENCOUNTER 2020-01-27 16:27 | Inpatient (IN) | payer MEDICARE, BC ==
[2020-01-27 16:50] LABS: Glucose,Whole Blood 147 mg/dL (75-99)
--- NOTE | 2020-01-27 17:21 | ED ---
General Adult HPI - General Chief complaint: Dizziness Stated complaint: Dizziness Time Seen by Provider: 01/27/20 16:31 Source: EMS Mode of arrival: EMS Limitations: no limitations - History of Present Illness Initial comments: Dictation was produced using [employer] dictation software. please excuse any grammatical, word or spelling errors. This patient was cared for during a federal and state declared state of emergency secondary to Covid 19 Chief Complaint: 84-year-old male past medical history coronary artery disease, COPD dyslipidemia seizure disorder presents today with dizziness. History of Present Illness: 84-year-old male has multiple comorbidities. He presents today with episode of dizziness. Patient states he's been fairly dizzy over the last couple days. This morning was when his symptoms were significantly worse. Patient states that he gets dizziness especially when he stands up. States that this morning he tried to get up however became so symptomatic that he had to sit back down. He tried to get up however still felt so dizzy that he sat back down. Patient states he had similar symptoms like this in the past at that time he passed out was told he had a heart attack. Patient is asymptomatic at this time. Does not complain of dizziness while lying on the bed. Denies any shortness of breath. Denies any numbness and paresthesias to the arms and legs. Patient does take apixaban. Patient reports that he fell yesterday. The ROS documented in this emergency department record has been reviewed and confirmed by me. Those systems with pertinent positive or negative responses have been documented in the HPI. All other systems are other negative and/or noncontributory. PHYSICAL EXAM: General Impression: Alert and oriented x3, not in acute distress HEENT: Normocephalic atraumatic, extra-ocular movements intact, pupils equal and reactive to light bilaterally, mucous membranes moist. Cardiovascular: Heart regular rate and rhythm Chest: Able to complete full sentences, no retractions, no tachypnea Abdomen: abdomen soft, non-tender, non-distended, no organomegaly Musculoskeletal: Pulses present and equal in all extremities, no peripheral edema Motor: no focal deficits noted Neurological: CN II-XII grossly intact, no focal motor or sensory deficits noted Skin: Intact with no visualized rashes Psych: Normal affect and mood ED course: 84-year-old male with chief complaint of dizziness. EKG shows A. fib. Patient denies any history of A. fib. Chart review does not show any hist ory of A. fib.Orthostatic vital signs were obtained. Patient has positive orthostasis. He is also symptomatic especially when standing.Laboratory evaluation obtained. CBC unremarkable. Coag panel unremarkable remarkable. Metabolic panel shows findings within acceptable limits. Phenytoin level is therapeutic. [place] level is less than 0.2. Computed tomography scan of the brain is unremarkable. Chest x-ray is nonacute. Patient is well-appearing. He does have stable labs. At this point is not entirely clear what is causing patient's presyncope. He does have a lot of comorbidities. Consider acute patient's clinical presentation we will have patient admitted for syncope/presyncope workup. Case is discussed with Dr. Allan who is willing to accept patients care on behalf of [facility] hospitalist group. EKG interpretation: Ventricular rate 88, A. fib, QRS 84, QTC 474. No OK prolongation, no QTC prolongation, no ST or T-wave changes noted. - Related Data Home Medications Medication Instructions Recorded Confirmed Tamsulosin [Flomax] 0.4 mg PO DAILY 09/23/16 01/27/20 Phenytoin Sodium Extended 200 mg PO TID 11/21/17 01/27/20 [Dilantin] Atorvastatin Calcium [Lipitor] 40 mg PO HS 01/27/20 01/27/20 Previous Rx's Medication Instructions Recorded Apixaban [Eliquis] 5 mg PO BID #60 tab 09/26/16 Aspirin 81 mg PO DAILY #30 chew 09/26/16 Lisinopril [Zestril] 20 mg PO BID #60 tab 11/08/18 Acetaminophen Tab [Tylenol] 650 mg PO Q6HR PRN tab 07/18/19 Isosorbide Mononitrate ER [Imdur] 30 mg PO DAILY #30 tab.er.24h 07/18/19 Allergies Allergy/AdvReac Type Severity Reaction Status Date / Time Penicillins Allergy Rash/Hives Verified 01/27/20 19:02 Review of Systems ROS Statement: Those systems with pertinent positive or pertinent negative responses have been documented in the HPI. ROS Other: All systems not noted in ROS Statement are negative. Past Medical History Past Medical History: Coronary Artery Disease (CAD), COPD, Hyperlipidemia, Hypertension, Myocardial Infarction (ND), Pneumonia, Renal Disease, Seizure Disorder Additional Past Medical History / Comment(s): Pt had recent bilateral pneumonia- completed ABX yesterday. 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 Past medical records indicate HTN, high cholesterol, BPH and COPD, but pt and family deny these-see pt med list. 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 Past trauma Past Anesthesia/Blood Transfusion Reactions: No Reported Reaction Date of Last Stent Placement:: 2014 Past Psychological History: No Psychological Hx Reported Smoking Status: Never smoker Past Alcohol Use History: None Reported Past Drug Use History: None Reported - Past Family History Mother Additional Family Medical History / Comment(s): Mother had mental health problems. Father Family Medical History: No Reported History General Exam Limitations: no limitations Course Vital Signs 01/27/20 01/27/20 01/27/20 16:29 18:16 18:23 Temperature 97.4 F L Pulse Rate 80 97 Pulse Rate [ 98 [employer]] Pulse Rate [ 110 H [employer] ] Pulse Rate [ 101 H Supine [employer]] Respiratory 18 17 Rate Blood Pressure 170/110 155/112 Blood Pressure 162/103 [Right Arm Sitting] Blood Pressure 138/104 [Right Arm Standing] Blood Pressure 161/121 [Right Arm Supine] O2 Sat by Pulse 97 95 98 Oximetry 01/27/20 19:50 Temperature Pulse Rate 88 Pulse Rate [ [employer]] Pulse Rate [ Standing [employer] ] Pulse Rate [ Supine [employer]] Respiratory 18 Rate Blood Pressure 125/75 Blood Pressure [Right Arm Sitting] Blood Pressure [Right Arm Standing] Blood Pressure [Right Arm Supine] O2 Sat by Pulse 95 Oximetry Medical Decision Making - Lab Data Result diagrams: 01/27/20 18:14 01/27/20 18:11 Lab Results 01/27/20 01/27/20 01/27/20 Range/Units 16:49 18:11 18:11 WBC (3.8-10.6) k/uL RBC (4.30-5.90) m/uL Hgb (13.0-17.5) gm/dL Hct (39.0-53.0) % MCV (80.0-100.0) fL MCH (25.0-35.0) pg MCHC (31.0-37.0) g/dL RDW (11.5-15.5) % Plt Count (150-450) k/uL Neutrophils % % Lymphocytes % % Monocytes % % Eosinophils % % Basophils % % Neutrophils # (1.3-7.7) k/uL Lymphocytes # (1.0-4.8) k/uL Monocytes # (0-1.0) k/uL Eosinophils # (0-0.7) k/uL Basophils # (0-0.2) k/uL PT 10.6 (9.0-12.0) sec INR 1.0 (<1.2) APTT 24.6 (22.0-30.0) sec Sodium 140 (137-145) mmol/L Potassium 3.5 (3.5-5.1) mmol/L Chloride 108 H (98-107) mmol/L Carbon Dioxide 22 (22-30) mmol/L Anion Gap 10 mmol/L BUN 6 L (9-20) mg/dL Creatinine 0.50 L (0.66-1.25) mg/dL Est GFR (CKD-EPI)AfAm >90 (>60 ml/min/1.73 sqM) Est GFR (CKD-EPI)NonAf >90 (>60 ml/min/1.73 sqM) Glucose 132 H (74-99) mg/dL POC Glucose (mg/dL) 147 H (75-99) mg/dL POC Glu Community Services Coordinator ID Vietnamese, Jaylene Plasma Lactic Acid [place] (0.7-2.0) mmol/L Calcium 8.7 (8.4-10.2) mg/dL Magnesium 1.7 (1.6-2.3) mg/dL Total Bilirubin 0.6 (0.2-1.3) mg/dL AST 21 (17-59) U/L ALT 16 (4-49) U/L Alkaline Phosphatase 155 H (38-126) U/L Troponin I (0.000-0.034) ng/mL Total Protein 6.8 (6.3-8.2) g/dL Albumin 4.1 (3.5-5.0) g/dL Phenytoin ug/mL [place] <0.2 mmol/L 01/27/20 01/27/20 01/27/20 Range/Units 18:11 18:11 18:14 WBC 6.5 (3.8-10.6) k/uL RBC 4.25 L (4.30-5.90) m/uL Hgb 13.1 (13.0-17.5) gm/dL Hct 38.8 L (39.0-53.0) % MCV 91.3 (80.0-100.0) fL MCH 30.8 (25.0-35.0) pg MCHC 33.7 (31.0-37.0) g/dL RDW 14.1 (11.5-15.5) % Plt Count 144 L (150-450) k/uL Neutrophils % 67 % Lymphocytes % 26 % Monocytes % 5 % Eosinophils % 1 % Basophils % 0 % Neutrophils # 4.4 (1.3-7.7) k/uL Lymphocytes # 1.7 (1.0-4.8) k/uL Monocytes # 0.3 (0-1.0) k/uL Eosinophils # 0.1 (0-0.7) k/uL Basophils # 0.0 (0-0.2) k/uL PT (9.0-12.0) sec INR (<1.2) APTT (22.0-30.0) sec Sodium (137-145) mmol/L Potassium (3.5-5.1) mmol/L Chloride (98-107) mmol/L Carbon Dioxide (22-30) mmol/L Anion Gap mmol/L BUN (9-20) mg/dL Creatinine (0.66-1.25) mg/dL Est GFR (CKD-EPI)AfAm (>60 ml/min/1.73 sqM) Est GFR (CKD-EPI)NonAf (>60 ml/min/1.73 sqM) Glucose (74-99) mg/dL POC Glucose (mg/dL) (75-99) mg/dL POC Glu Community Services Coordinator ID Plasma Lactic Acid [place] 1.4 (0.7-2.0) mmol/L Calcium (8.4-10.2) mg/dL Magnesium (1.6-2.3) mg/dL Total Bilirubin (0.2-1.3) mg/dL AST (17-59) U/L ALT (4-49) U/L Alkaline Phosphatase (38-126) U/L Troponin I <0.012 (0.000-0.034) ng/mL Total Protein (6.3-8.2) g/dL Albumin (3.5-5.0) g/dL Phenytoin ug/mL [place] mmol/L 01/27/20 Range/Units 18:59 WBC (3.8-10.6) k/uL RBC (4.30-5.90) m/uL Hgb (13.0-17.5) gm/dL Hct (39.0-53.0) % MCV (80.0-100.0) fL MCH (25.0-35.0) pg MCHC (31.0-37.0) g/dL RDW (11.5-15.5) % Plt Count (150-450) k/uL Neutrophils % % Lymphocytes % % Monocytes % % Eosinophils % % Basophils % % Neutrophils # (1.3-7.7) k/uL Lymphocytes # (1.0-4.8) k/uL Monocytes # (0-1.0) k/uL Eosinophils # (0-0.7) k/uL Basophils # (0-0.2) k/uL PT (9.0-12.0) sec INR (<1.2) APTT (22.0-30.0) sec Sodium (137-145) mmol/L Potassium (3.5-5.1) mmol/L Chloride (98-107) mmol/L Carbon Dioxide (22-30) mmol/L Anion Gap mmol/L BUN (9-20) mg/dL Creatinine (0.66-1.25) mg/dL Est GFR (CKD-EPI)AfAm (>60 ml/min/1.73 sqM) Est GFR (CKD-EPI)NonAf (>60 ml/min/1.73 sqM) Glucose (74-99) mg/dL POC Glucose (mg/dL) (75-99) mg/dL POC Glu Community Services Coordinator ID Plasma Lactic Acid [place] (0.7-2.0) mmol/L Calcium (8.4-10.2) mg/dL Magnesium (1.6-2.3) mg/dL Total Bilirubin (0.2-1.3) mg/dL AST (17-59) U/L ALT (4-49) U/L Alkaline Phosphatase (38-126) U/L Troponin I (0.000-0.034) ng/mL Total Protein (6.3-8.2) g/dL Albumin (3.5-5.0) g/dL Phenytoin 17.0 ug/mL [place] mmol/L Disposition Clinical Impression: Syncope Disposition: ADMITTED IP TO THIS HOSP Condition: Fair Referrals: Roel Lopez DO [Primary Care Provider] - 1-2 days Decision Time: 20:11
--- NOTE | 2020-01-27 17:44 | XR ---
EXAMINATION TYPE: XR chest 1V portable DATE OF EXAM: 01/27/2020 COMPARISON: 01/10/2020 HISTORY: Dizziness TECHNIQUE: FINDINGS: There is no heart failure nor confluent pneumonic infiltrate. Costophrenic angles are clear . There are chest leads. There is mild coarsening of interstitial markings. IMPRESSION: Mild pulmonary fibrosis. No acute lung disease. No adverse change.
[2020-01-27 18:26] LABS: Basophils % (A) 0 %; Eosinophils # (A) 0.1 k/uL (0-0.7); Eosinophils % (A) 1 %; HCT 38.8 % (39.0-53.0); HGB 13.1 gm/dL (13.0-17.5); Lymphocytes # (A) 1.7 k/uL (1.0-4.8); Lymphocytes % (A) 26 %; MCH 30.8 pg (25.0-35.0); MCHC 33.7 g/dL (31.0-37.0); MCV 91.3 fL (80.0-100.0); Mean Platelet Volume 7.6; Monocytes # (A) 0.3 k/uL (0-1.0); Monocytes % (A) 5 %; Neutrophils # (A) 4.4 k/uL (1.3-7.7); Neutrophils % (A) 67 %; Platelet Count 144 k/uL (150-450); RBC 4.25 m/uL (4.30-5.90); RDW 14.1 % (11.5-15.5); WBC 6.5 k/uL (3.8-10.6)
--- NOTE | 2020-01-27 18:31 | CT ---
EXAMINATION TYPE: CT brain wo con DATE OF EXAM: 01/27/2020 COMPARISON: 01/10/2020 HISTORY: Dizziness. CT DLP: 1099.4 mGycm Automated exposure control for dose reduction was used. There is some cerebral cortical atrophy. There is no mass effect nor midline shift. There is no sign of intracranial hemorrhage. The calvarium is intact. There is no evidence of cerebral edema. Skull ba se is intact. There is 8 mm metallic density at the surface of the skull in the left occipital region . IMPRESSION: Cerebral atrophy. No acute intracranial abnormality. No change.
[2020-01-27 18:36] LABS: ALT 16 U/L (4-49); AST 21 U/L (17-59); African American GFR (CKD) >90 (>60 ml/min/1.73 sqM); Albumin 4.1 g/dL (3.5-5.0); Alkaline Phosphatase 155 U/L (38-126); Anion Gap 10 mmol/L; Blood Urea Nitrogen 6 mg/dL (9-20); Calcium 8.7 mg/dL (8.4-10.2); Carbon Dioxide 22 mmol/L (22-30); Chloride 108 mmol/L (98-107); Glucose 132 mg/dL (74-99); Lithium <0.2 mmol/L; Magnesium 1.7 mg/dL (1.6-2.3); Non-African American GFR(CKD) >90 (>60 ml/min/1.73 sqM); Potassium 3.5 mmol/L (3.5-5.1); Sodium 140 mmol/L (137-145); Total Bilirubin 0.6 mg/dL (0.2-1.3); Total Protein 6.8 g/dL (6.3-8.2)
[2020-01-27 18:57] LABS: Partial Thromboplastin Time 24.6 sec (22.0-30.0); Prothrombin Time 10.6 sec (9.0-12.0)
[2020-01-27] MEDS ORDERED: ACETAMINOPHEN TAB 325 MG TAB PO PRN (19:41)
[2020-01-27] MEDS ORDERED: NALOXONE 0.4 MG/ML 1 ML VIAL IV PRN (20:11)
--- NOTE | 2020-01-27 20:34 | HP ---
HISTORY AND PHYSICAL DATE OF SERVICE: 01/27/2020 CHIEF COMPLAINT: Syncope. HISTORY OF PRESENT ILLNESS: This 84-year-old gentleman with a past medical history of CAD, COPD, hypertension, hyperlipidemia, history of myocardial infarction, pneumonia, history of seizure disorder, history of bilateral pneumonia, history of CAD/stent, being followed by Dr. Roel Lopez in the outpatient setting, was not feeling well over the past several days. The patient had some dizziness over the last couple of days. The patient gets dizzy, especially when he stands up, and the patient almost passed out. The patient came to [facility] and was admitted for evaluation and treatment. There is no history of any fever, rigor or chills. No history of headache, any seizures at this time. An EKG was done which showed atrial fibrillation with PVCs and possibly some aberrant conduction. PAST MEDICAL HISTORY: History of CAD, COPD, hypertension, hyperlipidemia, history of myocardial infarction, history of pneumonia. HOME MEDICATIONS: Home medications prior to admission include: 1. Flomax 0.4 daily. 2. Lipitor 40 mg at bedtime. 3. Dilantin 200 mg t.i.d. 4. Zestril 20 mg p.o. b.i.d. 5. Imdur 30 mg p.o. daily. 6. Aspirin 81 mg p.o. daily. 7. Eliquis 5 mg p.o. b.i.d. 8. Tylenol 650 q.6 p.r.n. ALLERGIES: PENICILLIN. FAMILY HISTORY: Mother had mental health problems. Otherwise, no major issues. SOCIAL HISTORY: No history of smoking. No history of alcohol intake. REVIEW OF SYSTEMS: ENT: Diminished hearing. Diminished vision. CARDIOVASCULAR SYSTEM: As mentioned earlier. RESPIRATORY SYSTEM: As mentioned earlier. GI: No nausea, vomiting. : No dysuria or retention. NERVOUS SYSTEM: As mentioned earlier. ALLERGY/IMMUNOLOGY: No asthma, hayfever. MUSCULOSKELETAL: As mentioned earlier. HEMATOLOGY/ONCOLOGY: No history of anemia. ENDOCRINE: As mentioned earlier. CONSTITUTIONAL: As mentioned earlier. DERMATOLOGY: Negative. RHEUMATOLOGY: Negative. PSYCHIATRY: As mentioned earlier. PHYSICAL EXAMINATION: Patient alert and oriented x3. Pulse is 110, blood pressure 160/103 and when standing. Respirations 17, temperature 97.4, pulse ox 98% on room air. HEENT: Conjunctivae normal. Oral mucosa moist. NECK: No jugular venous distention. No carotid bruit. No lymph node enlargement. CARDIOVASCULAR SYSTEM: S1, S2 muffled. No S3. No S4. RESPIRATORY SYSTEM: Breath sounds diminished at the bases. A few scattered rhonchi and crackles. ABDOMEN: Soft, non-tender. No mass palpable. LEGS: No edema. No swelling. NERVOUS SYSTEM: Higher functions as mentioned earlier. Moves all 4 limbs. No focal motor or sensory deficit. LYMPHATICS: No lymph node palpable in neck, axillae or groin. SKIN: No ulcer, rash, bleeding. JOINTS: No active deforming arthropathy. LABS: WBC 6.5, hemoglobin 13.1, platelets are 144. INR is 1. Sodium 140, potassium 3.5 and glucose 132. Alkaline phosphatase 155. ASSESSMENT: 1. Dizziness. Rule out orthostatic hypotension or cardiac arrhythmia. 2. Atrial fibrillation. 3. History of chronic obstructive pulmonary disease. 4. Hypertension. 5. Hyperlipidemia. 6. History of myocardial infarction. 7. History of seizure disorder. 8. History of pneumonia. 9. History of seizures. 10.History of inguinal hernia. 11.History of vertigo. 12.History of nephrolithiasis. 13.History of degenerative joint disease. 14.History of hypercholesteremia. 15.History of coronary artery disease/stent. 16.Gait dysfunction. 17.Obesity with body mass index of 34.7. 18.FULL CODE. RECOMMENDATIONS AND DISCUSSION: In this 84-year-old gentleman who presented with multiple complex medical issues, we will monitor the patient closely, continue the current medications, continue with symptomatic treatment. Will check orthostatic vitals. We will resume the home medications. Otherwise, cardiology consultation. Cardiovascular evaluation. The patient is already on Apixaban. The prognosis is guarded because of the multiple complex medical issues. Further recommendations to follow. A copy of this dictation is being forwarded to Dr. Roel Lopez, who is the primary physician. MMALFREDOL / IJN: [id number] / WENDIE
[2020-01-28] MEDS: APIXABAN 5 MG TAB PO SCH ×3 (00:33→20:02)
[2020-01-28] MEDS: ATORVASTATIN 40 MG TAB PO SCH ×2 (00:34→20:02)
[2020-01-28] MEDS: PHENYTOIN SODIUM EXTENDED 100 MG CAP PO SCH ×4 (01:13→20:02)
[2020-01-28] MEDS: SODIUM CHLORIDE 0.9% 1,000 ML IV SCH (01:15)
[2020-01-28 06:11] LABS: Basophils % (A) 0 %; Eosinophils # (A) 0.1 k/uL (0-0.7); Eosinophils % (A) 1 %; HCT 39.7 % (39.0-53.0); HGB 13.2 gm/dL (13.0-17.5); Lymphocytes # (A) 1.5 k/uL (1.0-4.8); Lymphocytes % (A) 28 %; MCH 30.4 pg (25.0-35.0); MCHC 33.3 g/dL (31.0-37.0); MCV 91.5 fL (80.0-100.0); Mean Platelet Volume 7.8; Monocytes # (A) 0.4 k/uL (0-1.0); Monocytes % (A) 6 %; Neutrophils # (A) 3.6 k/uL (1.3-7.7); Neutrophils % (A) 63 %; Platelet Count 125 k/uL (150-450); RBC 4.34 m/uL (4.30-5.90); WBC 5.6 k/uL (3.8-10.6)
[2020-01-28 06:32] LABS: African American GFR (CKD) >90 (>60 ml/min/1.73 sqM); Anion Gap 8 mmol/L; Blood Urea Nitrogen 5 mg/dL (9-20); Calcium 8.4 mg/dL (8.4-10.2); Carbon Dioxide 26 mmol/L (22-30); Chloride 109 mmol/L (98-107); Glucose 132 mg/dL (74-99); Non-African American GFR(CKD) >90 (>60 ml/min/1.73 sqM); Potassium 3.7 mmol/L (3.5-5.1); Sodium 143 mmol/L (137-145)
[2020-01-28] MEDS: TAMSULOSIN 0.4 MG CAP.ER.24H PO SCH (08:14)
[2020-01-28] MEDS: ISOSORBIDE MONONITRATE ER 30 MG TAB.ER.24H PO SCH (08:14)
[2020-01-28] MEDS: ASPIRIN 81 MG PO SCH (08:15)
[2020-01-28] MEDS: METOPROLOL SUCCINATE (ER) 25 MG TAB.ER.24H PO SCH (11:13)
--- NOTE | 2020-01-28 11:38 | CONS ---
CONSULTATION CHIEF COMPLAINT: Dizziness and near syncope. This is an 84-year-old gentleman with a history of dyslipidemia, hypertension and atrial fibrillation who has significant hearing impairment, presented to hospital with episodes of dizziness. Cardiology had been consulted because of his atrial fibrillation. The patient denies chest pain, shortness of breath, palpitations, focal neurological deficits, or syncope. He he has many guns at home and has recently turned in, and he states that he is in quite a bit of stress as a result. The plan at this stage is to continue his Eliquis, put him on Toprol-XL 25 mg daily for rate control and obtain a 2D echo to evaluate his LV function. PAST MEDICAL HISTORY: Significant for dyslipidemia, atrial fibrillation. CURRENT MEDICATIONS: Include Lipitor, Dilantin, Zestril, Imdur, aspirin, Eliquis, and Tylenol. ALLERGIES: PENICILLIN. FAMILY HISTORY: Negative for premature coronary artery disease. SOCIAL HISTORY: Negative for current smoking, EtOH abuse, or drug abuse. REVIEW OF SYSTEMS: HEENT is unremarkable. Cardiac as described above. Respiratory as described above. GI negative. negative. Allergy/Immunology: None. Skin negative. Musculoskeletal significant for arthritis. Psychosocial negative. Derm negative. CONSTITUTIONAL negative. ONCOLOGICAL negative. Rest of the system review is not relevant. PHYSICAL EXAMINATION: On exam, patient is afebrile. Heart rate is 84 beats per minute. Blood pressure is 130/86. Respirations 18. O2 saturation is 98% on room air. There is no jugular venous distention. Carotid upstroke is diminished. There is no bruit. Chest exam reveals good air entry bilaterally. Heart exam reveals first and second heart sounds. No gallop. No murmur. ABDOMEN: Soft. Exam of extremities did not reveal any edema. Peripheral pulses are felt. LABS: Show a hemoglobin of 13.2, potassium is 3.7 creatinine is 0.48. EKG shows atrial fibrillation with nonspecific ST-T wave changes. ASSESSMENT: 1. Permanent atrial fibrillation with somewhat of a poorly controlled ventricular rate. 2. Dizziness and near-syncope. The exact etiology is unclear. PLAN: I will obtain an echocardiogram on him. Continue his medications. The patient will probably need a neurological evaluation once it is available. MMODL / IJN: [id number] /
[2020-01-28] MEDS ORDERED: DILTIAZEM DRIP BOLUS FROM BAG 1 MG SOLN IV ONE (11:50)
[2020-01-28] MEDS ORDERED: DILTIAZEM 125 MG in SODIUM CHLORIDE 0.9% 100 ML IV SCH (12:00)
[2020-01-28] MEDS ORDERED: TEMAZEPAM 15 MG CAP PO PRN (13:35)
[2020-01-28] MEDS: LORazepam 1 MG TAB PO PRN (16:04)
--- NOTE | 2020-01-28 22:53 | PN ---
PROGRESS NOTE DATE OF SERVICE: 01/28/2020 I am covering for Dr. Lopez. This 84-year-old gentleman who was admitted with episodes of syncope is being closely monitored. Patient also complaining of significant depressive illness in the family as well. The patient was also noted to have some orthostatic hypotension, about 30 points at this time. Platelets 125. PHYSICAL EXAMINATION: Alert and oriented x3. Pulse is 84, blood pressure noted, respirations 16, temperature 97.8, pulse ox 98% on room air. HEENT: Conjunctivae normal. Oral mucosa moist. NECK: No jugular venous distention. No lymph node enlargement. CARDIOVASCULAR: S1, S2, muffled. No S3, no S4, RESPIRATORY: Diminished breath sounds at the bases. Few rhonchi, no crackles. ABDOMEN: Soft, nontender. LEGS: No edema, no swelling. NERVOUS SYSTEM: No focal deficits. LABS: Platelets 125. Otherwise, creatinine 4.48. COVID-19 is negative. ASSESSMENT: 1. Dizziness and presyncope for evaluation, rule out orthostatic hypotension or cardiac arrhythmia. 2. Atrial fibrillation, chronic. 3. History of chronic obstructive pulmonary disease. 4. Significant history of depressive illness and psychiatric illness in the family. 5. Hypertension. 6. Hyperlipidemia. 7. History of myocardial infarction. 8. History of seizure disorder. 9. History of pneumonia. 10.History of inguinal hernia. 11.History of vertigo. 12.History of nephrolithiasis. 13.History of degenerative joint disease. 14.History hypercholesteremia. 15.History of coronary artery disease/stent. 16.Gait dysfunction. 17.Obesity with body mass index of 34.7. 18.FULL CODE. RECOMMENDATIONS AND DISCUSSION: Recommend to continue current medications, continue to monitor, symptomatic treatment. Otherwise, at this time I recommend Ativan p.r.n. and closely follow with Cardiology. Orthostatic vitals. The patient is also on Cardizem drip at this time. I would recommend a psychiatric consultation if the patient's mental symptoms are not improving. Otherwise, prognosis extremely guarded because of multiple complex medical issues. Further recommendations to follow. MMODL / IJN: [id number] /
[2020-01-29 06:51] LABS: Basophils % (A) 0 %; Eosinophils # (A) 0.1 k/uL (0-0.7); Eosinophils % (A) 1 %; HCT 40.4 % (39.0-53.0); HGB 13.4 gm/dL (13.0-17.5); Lymphocytes # (A) 1.6 k/uL (1.0-4.8); Lymphocytes % (A) 27 %; MCH 30.2 pg (25.0-35.0); MCV 91.4 fL (80.0-100.0); Mean Platelet Volume 7.1; Monocytes # (A) 0.4 k/uL (0-1.0); Monocytes % (A) 6 %; Neutrophils # (A) 3.9 k/uL (1.3-7.7); Neutrophils % (A) 64 %; Platelet Count 136 k/uL (150-450); RBC 4.42 m/uL (4.30-5.90); RDW 13.9 % (11.5-15.5); WBC 6.1 k/uL (3.8-10.6)
[2020-01-29 06:59] LABS: African American GFR (CKD) >90 (>60 ml/min/1.73 sqM); Anion Gap 6 mmol/L; Blood Urea Nitrogen 11 mg/dL (9-20); Calcium 8.4 mg/dL (8.4-10.2); Carbon Dioxide 26 mmol/L (22-30); Chloride 108 mmol/L (98-107); Glucose 131 mg/dL (74-99); Non-African American GFR(CKD) >90 (>60 ml/min/1.73 sqM); Potassium 4.1 mmol/L (3.5-5.1); Sodium 140 mmol/L (137-145)
--- NOTE | 2020-01-29 07:47 | ECHOF ---
Referral Reason:afib MEASUREMENTS -------- HEIGHT: 175.3 cm WEIGHT: 106.6 kg BP: 155/100 RVIDd: 3.7 cm (< 3.3) IVSd: 1.5 cm (0.6 - 1.1) LVIDd: 4.4 cm (3.9 - 5.3) LVPWd: 1.6 cm (0.6 - 1.1) IVSs: 2.0 cm LVIDs: 3.3 cm LVPWs: 2.0 cm LA Diam: 4.5 cm (2.7 - 3.8) LAESV Index (A-L): 53.49 ml/m Ao Diam: 4.1 cm (2.0 - 3.7) AV Cusp: 2.3 cm (1.5 - 2.6) MV EXCURSION: 17.701 mm (> 18.000) MV EF SLOPE: 112 mm/s (70 - 150) EPSS: 0.8 cm RAP: 5.00 mmHg RVSP: 24.35 mmHg FINDINGS -------- This was a technically good study. The left ventricular size is normal. There is moderate concentric left ventricular hypertrophy. O verall left ventricular systolic function is moderately impaired with, an EF between 35 - 40 %. The right ventricle is mildly enlarged. LA is severely dilated >40 ml/m2 The right atrium is normal in size. Interatrial and interventricular septum intact. There is mild aortic valve sclerosis. There is mild aortic regurgitation. Mild mitral regurgitation is present. Mild tricuspid regurgitation present. Right ventricular systolic pressure is normal at < 35 mmHg. Moderate pulmonic regurgitation. 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 Normal inferior vena cava with normal inspiratory collapse consistent with estimated right atrial pre ssure of 5 mmHg. There is no pericardial effusion. CONCLUSIONS -------- 1. This was a technically good study. 2. The left ventricular size is normal. 3. There is moderate concentric left ventricular hypertrophy. 4. Overall left ventricular systolic function is moderately impaired with, an EF between 35 - 40 %. 5. The right ventricle is mildly enlarged. 6. LA is severely dilated >40 ml/m2 7. The right atrium is normal in size. 8. Interatrial and interventricular septum intact. 9. There is mild aortic valve sclerosis. 10. There is mild aortic regurgitation. 11. Mild mitral regurgitation is present. 12. Mild tricuspid regurgitation present. 13. Right ventricular systolic pressure is normal at < 35 mmHg. 14. Moderate pulmonic regurgitation. 15. 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 16. Normal inferior vena cava with normal inspiratory collapse consistent with estimated right atrial pressure of 5 mmHg. 17. There is no pericardial effusion. OIL PROCESSING TECHNICIAN: Sandra Patricia RDCS
[2020-01-29] MEDS: SODIUM CHLORIDE 0.9% 1,000 ML IV SCH ×2 (08:55→20:29)
[2020-01-29] MEDS: ASPIRIN 81 MG PO SCH (08:55)
[2020-01-29] MEDS: APIXABAN 5 MG TAB PO SCH ×2 (08:55→20:36)
[2020-01-29] MEDS: TAMSULOSIN 0.4 MG CAP.ER.24H PO SCH (08:55)
[2020-01-29] MEDS: ISOSORBIDE MONONITRATE ER 30 MG TAB.ER.24H PO SCH (08:55)
[2020-01-29] MEDS: METOPROLOL SUCCINATE (ER) 25 MG TAB.ER.24H PO SCH (08:55)
[2020-01-29] MEDS: PHENYTOIN SODIUM EXTENDED 100 MG CAP PO SCH ×3 (08:55→20:36)
[2020-01-29] MEDS: LISINOPRIL 5 MG TAB PO SCH (11:52)
[2020-01-29] MEDS: SPIRONOLACTONE 25 MG TAB PO SCH (11:52)
--- NOTE | 2020-01-29 16:54 | PN ---
PROGRESS NOTE DATE OF SERVICE: 01/29/2020 This 84-year-old gentleman who was admitted with multiple medical problems, complaining of weakness. Patient had some hallucinations also. No chest pain. No palpitations. No fever. A 2D echo with Doppler was done by Cardiology which showed ejection fraction 35-40 percent, which is a new change. LA was severely dilated. Past medical history reviewed. REVIEW OF SYSTEMS: Cardiovascular system: No angina or palpitations. RESPIRATORY As mentioned earlier. GI: As mentioned earlier. : No dysuria. Nervous system: No numbness or weakness. CURRENT MEDICATIONS: Tylenol, Eliquis, aspirin, Lipitor, Imdur, Zestril, Ativan, Toprol-XL, Narcan, Dilantin, Aldactone, Flomax, Restoril. Doses reviewed. PHYSICAL EXAM: Patient is alert, oriented x2. Pulse 71. Blood pressure 143/90, respiration 18, temperature 97.7, pulse ox 97% on room air. HEENT: Conjunctivae normal. NECK: No JVD. CARDIOVASCULAR: S1, S2 muffled. RESPIRATION: Breath sounds diminished in the bases. A few scattered rhonchi and crackles. ABDOMEN: Soft, nontender. LEGS are no edema. No swelling. NERVOUS SYSTEM: No focal deficits. LABORATORY DATA: WBC 6.1, hemoglobin 13.2, potassium 4.1, sodium is 140 and a glucose 131. ASSESSMENT: 1. Dizziness and presyncope for evaluation, rule out orthostatic hypertension or cardiac arrhythmia. 2. Congestive heart failure with chronic systolic dysfunction, ejection fraction 35%- 40%. 3. Mild to moderate mitral regurgitation, mild tricuspid regurgitation, moderate pulmonary regurgitation in the 2D echo and as well as mild aortic vascular sclerosis. 4. Atrial fibrillation, chronic, fast ventricular rate. 5. History of chronic obstructive pulmonary disease. 6. Significant history of depression and depressive illness, psychiatric illness in the family. 7. Hypertension. 8. Hyperlipidemia. 9. History of myocardial infarction. 10.History of seizure disorder. 11.History of pneumonia. 12.History of inguinal hernia. 13.History of vertigo. 14.History of nephrolithiasis. 15.History of degenerative joint disease. 16.History of hypercholesteremia. 17.History of coronary artery disease/stent. 18.History of gait dysfunction. 19.Obesity with body mass index of 34.6. 20.FULL CODE. RECOMMENDATIONS AND DISCUSSION: Recommend to continue current medications, monitoring and symptomatic treatment. Otherwise, at this time, I would recommend repeat labs. Otherwise 2D echo was noted. Closely monitor along with Psychiatry. Otherwise, guarded prognosis because of multiple complex medical issues. We will also check BNP. The chest x-ray on admission which was reviewed personally by me showed mild pulmonary fibrosis. Further recommendations to follow. KAMALJIT / AILYN: [id number] /
--- NOTE | 2020-01-29 17:22 | PN ---
PROGRESS NOTE Javier is an 84-year-old gentleman with history of coronary artery disease status post angioplasty, dyslipidemia, diabetes and persistent atrial fibrillation, who presented to the hospital with dizziness and subsequently developed atrial fibrillation with rapid ventricular rate. He was on Cardizem for a while and subsequently his beta- jono dose had been increased. At the time of my evaluation this morning, he appears comfortable at rest, remains in atrial fibrillation with controlled ventricular rate. Blood pressure is normal. He denies any chest pain, difficulty in breathing or dizziness. EXAM: Heart rate is 71 beats per minute. Blood pressure is 143/92. Respiratory rate is 18. Chest exam reveals good air entry bilaterally. Heart exam reveals first and second heart sounds, irregular rhythm. ABDOMEN: Soft. Exam of extremities did not reveal any edema. LAB: Show a hemoglobin of 13.4, potassium is 4.1 creatinine is 0.5. ASSESSMENT: 1. Permanent atrial fibrillation with controlled ventricular rate. 2. Coronary artery disease, status post angioplasty. 3. Coronary artery disease status post prior angioplasty. PLAN: Patient is doing well this morning. We should be able to discharge him home later this evening or tomorrow morning. His dizziness is resolved. I will see him back in the office. MMODL / IJN: [id number] /
[2020-01-29] MEDS: LORazepam 1 MG TAB PO PRN ×2 (17:50→23:22)
[2020-01-29] MEDS: ATORVASTATIN 40 MG TAB PO SCH (20:36)
[2020-01-30 06:37] LABS: Basophils % (A) 0 %; Eosinophils # (A) 0.1 k/uL (0-0.7); Eosinophils % (A) 2 %; HCT 38.2 % (39.0-53.0); HGB 13.3 gm/dL (13.0-17.5); Lymphocytes # (A) 1.5 k/uL (1.0-4.8); Lymphocytes % (A) 27 %; MCH 32.1 pg (25.0-35.0); MCHC 34.8 g/dL (31.0-37.0); MCV 92.1 fL (80.0-100.0); Mean Platelet Volume 7.2; Monocytes # (A) 0.3 k/uL (0-1.0); Monocytes % (A) 5 %; Neutrophils # (A) 3.6 k/uL (1.3-7.7); Neutrophils % (A) 65 %; Platelet Count 134 k/uL (150-450); RBC 4.15 m/uL (4.30-5.90); RDW 13.8 % (11.5-15.5); WBC 5.5 k/uL (3.8-10.6)
[2020-01-30 07:01] LABS: African American GFR (CKD) >90 (>60 ml/min/1.73 sqM); Anion Gap 8 mmol/L; Blood Urea Nitrogen 11 mg/dL (9-20); Calcium 8.3 mg/dL (8.4-10.2); Carbon Dioxide 25 mmol/L (22-30); Chloride 107 mmol/L (98-107); Glucose 130 mg/dL (74-99); Non-African American GFR(CKD) >90 (>60 ml/min/1.73 sqM); Potassium 3.8 mmol/L (3.5-5.1); Sodium 140 mmol/L (137-145)
[2020-01-30] MEDS ORDERED: METOPROLOL SUCCINATE (ER) 50 MG TAB.ER.24H PO SCH (09:00)
[2020-01-30] MEDS: ISOSORBIDE MONONITRATE ER 30 MG TAB.ER.24H PO SCH (09:06)
[2020-01-30] MEDS: APIXABAN 5 MG TAB PO SCH (09:06)
[2020-01-30] MEDS: ASPIRIN 81 MG PO SCH (09:06)
[2020-01-30] MEDS: LISINOPRIL 5 MG TAB PO SCH (09:06)
[2020-01-30] MEDS: SPIRONOLACTONE 25 MG TAB PO SCH (09:06)
[2020-01-30] MEDS: TAMSULOSIN 0.4 MG CAP.ER.24H PO SCH (09:06)
[2020-01-30] MEDS: PHENYTOIN SODIUM EXTENDED 100 MG CAP PO SCH (09:06)
[2020-01-30] MEDS: LORazepam 1 MG TAB PO PRN (09:07)
[2020-01-30 11:33] VITALS: TEMP 97.6
--- NOTE | 2020-01-30 13:13 | P.PN ---
Subjective Progress Note Date: 01/30/20 This is an 84-year-old gentleman with history of hyperlipidemia, hypertension, atrial fibrillation, hearing impairment, who presented to the hospital with episodes of dizziness, cardiology consultation was requested because of his atrial fibrillation. He was seen and examined this morning, continues to be in atrial fibrillation, his heart rate is in the 1 teens to 120 range. Echocardiogram with Doppler study revealed an ejection fraction of 35-40%. Moderate pulmonic regurgitation. He is on Eliquis for anticoagulation. We will increase his metoprolol to 50 mg daily for more optimal heart rate control. Objective - Vital Signs Vital signs: Vital Signs Temp 97.6 F 01/30/20 11:05 Pulse 61 01/30/20 11:05 Resp 19 01/30/20 11:05 BP 128/86 01/30/20 11:05 Pulse Ox 98 01/30/20 11:05 Intake & Output 01/29/20 01/30/20 01/30/20 18:59 06:59 18:59 Intake Total 2011 240 Output Total 600 1000 120 Balance 1411 -1000 120 Weight 104.7 kg Intake: IV 1300 Sodium Chloride 0.9% 1, 1300 000 ml @ 20 mls/hr IV . Q24H MARYBEL Rx#:[id number] Oral 711 240 Output: Urine 600 1000 120 Other: Voiding Method Urinal Urinal Urinal # Voids 1 - Exam PHYSICAL EXAMINATION: GENERAL: 84-year-old gentleman in no acute distress at the time of my examination HEENT: Head is atraumatic, normocephalic. Pupils equal, round. Sclera anicteric. Conjunctiva are clear. Mucous membranes of the mouth are moist. Neck is supple. There is no elevated jugular venous pressure. No carotid bruit is heard. HEART EXAMINATION: Heart S1 and S2 irregularly irregular a systolic murmur is heard CHEST EXAMINATION: Lungs are clear to auscultation and precussion. No chest wall tenderness is noted on palpation or with deep breathing. ABDOMEN: Soft, nontender. Bowel sounds are heard. No organomegaly noted. EXTREMITIES: 2+ peripheral pulses with no evidence of peripheral edema and no calf tenderness noted. NEUROLOGIC patient is awake, alert and oriented 3 . . - Labs CBC & Chem 7: 01/30/20 05:28 01/30/20 05:28 Labs: Abnormal Lab Results - Last 24 Hours (Table) 01/30/20 01/30/20 Range/Units 05:28 05:28 RBC 4.15 L (4.30-5.90) m/uL Hct 38.2 L (39.0-53.0) % Plt Count 134 L (150-450) k/uL Creatinine 0.55 L (0.66-1.25) mg/dL Glucose 130 H (74-99) mg/dL Calcium 8.3 L (8.4-10.2) mg/dL Assessment and Plan Plan: Assessment and plan #1 persistent atrial fibrillation #2 coronary artery disease with prior PCI #3 hyperlipidemia #4 hypertension #5 COPD #6 history of bilateral pneumonia #7 history of seizure disorder Plan We will increase the dose of beta jono to optimize heart rate control, continue the rest of the patient's medications including anticoagulation in the form of Eliquis. Discharged home once cleared by primary. DNP note has been reviewed, I agree with a documented findings and plan of care. Patient was seen and examined.
[2020-01-30 15:02] VITALS: BP 156/89; PULSE 84; RESP 18
[2020-01-30] MEDS ORDERED: Magnesium Replacement Protocol 1 EACH MISC MISCELLANE PRN ×2 (15:04→15:12)
[2020-01-30] MEDS ORDERED: MAGNESIUM SULFATE-D5W PMX 1 GM in DEXTROSE/WATER 1 100ML.BAG IVPB SCH (15:15)
--- NOTE | 2020-01-30 16:31 | P.DS ---
Providers Date of admission: 01/29/20 10:28 Expected date of discharge: 01/30/20 Attending physician: Roel Lopez Consults: 01/27/20 19:42 Consult Physician Routine Consulting Provider: Sridevi Henning Consult Reason/Comments: syncope Do you want consulting provider notified?: Yes Primary care physician: Roel Lopez [facility] Hospital Course: Final Diagnoses: Near syncope, dizziness, secondary to dehydration, rapid A. fib . Patient stated he been cutting firewood in the hot weather, overexerted himself, with minimal hydration. Chronic CHF, systolic dysfunction, EF 35-40% Chronic Persistent atrial fibrillation with rapid ventricular rate on admission, now controlled [id number] mitral regurgitation, mild tricuspid regurgitation, moderate pulmonary regurgitation, mild aortic vascular sclerosis CAD Hypertension Hyperlipidemia COPD Seizure disorder Obesity, BMI 34.1 Hospital course: This a 84-year-old gentleman admitted with dizziness, dehydration, atrial fibrillation and multiple other medical issues. Negative for orthostatic hypotension. Echo reported EF 35-40%, moderate pulmonary regurgitation. Evaluated by cardiology. Anticoagulated on Eliquis, beta block er increased. Dizziness resolved. Denies chest pain, palpitations or shortness of breath. Significant clinical improvement. Cleared by cardiology for discharge. Patient is being discharged home in a stable condition with guarded prognosis. The impression and plan of care has been dictated as directed. : I performed a history and examination of this patient, discussed the same with the dictator. I agree with the dictator's note ,documented as a scribe. Any additional findings or plans will be noted. Patient Condition at Discharge: Stable Plan - Discharge Summary Discharge Rx Participant: Yes New Discharge Prescriptions: New Spironolactone [Aldactone] 25 mg PO DAILY #30 tab Metoprolol Succinate (ER) [Toprol XL] 50 mg PO DAILY #30 tab.er.24h Lisinopril [Zestril] 5 mg PO DAILY #30 tab Continue Tamsulosin [Flomax] 0.4 mg PO DAILY Apixaban [Eliquis] 5 mg PO BID #60 tab Aspirin 81 mg PO DAILY #30 chew Phenytoin Sodium Extended [Dilantin] 200 mg PO TID Isosorbide Mononitrate ER [Imdur] 30 mg PO DAILY #30 tab.er.24h Acetaminophen Tab [Tylenol] 650 mg PO Q6HR PRN tab PRN Reason: Mild Pain Or Fever >= 100.5 Atorvastatin Calcium [Lipitor] 40 mg PO HS Discontinued Lisinopril [Zestril] 20 mg PO BID #60 tab Discharge Medication List Tamsulosin [Flomax] 0.4 mg PO DAILY 09/23/16 [History] Apixaban [Eliquis] 5 mg PO BID #60 tab 09/26/16 [Rx] Aspirin 81 mg PO DAILY #30 chew 09/26/16 [Rx] Phenytoin Sodium Extended [Dilantin] 200 mg PO TID 11/21/17 [History] Acetaminophen Tab [Tylenol] 650 mg PO Q6HR PRN tab 07/18/19 [Rx] Isosorbide Mononitrate ER [Imdur] 30 mg PO DAILY #30 tab.er.24h 07/18/19 [Rx] Atorvastatin Calcium [Lipitor] 40 mg PO HS 01/27/20 [History] Lisinopril [Zestril] 5 mg PO DAILY #30 tab 01/30/20 [Rx] Metoprolol Succinate (ER) [Toprol XL] 50 mg PO DAILY #30 tab.er.24h 01/30/20 [Rx] Spironolactone [Aldactone] 25 mg PO DAILY #30 tab 01/30/20 [Rx] Follow up Appointment(s)/Referral(s): Roel Lopez DO [Primary Care Provider] - 3 Days (ThursdayJanuary, 11:00) Cisco Balderas MD [STAFF PHYSICIAN] - 1 Week Ambulatory/Diagnostic Orders: Complete Blood Count w/diff [LAB.AMB] Time Frame: 3 Days, Location: None Selected Patient Instructions/Handouts: Near Syncope (GEN) Discharge Disposition: HOME SELF-CARE
== END 2020-01-30 15:44 | disposition home or self-care (01) | DRG 641 ==
LOC: EC 16:27 → 3SCARD 20:11 → OBSVTOIN 01-29 10:28
PROVIDERS: ADMIT Family Medicine; ATTEND Family Medicine
DX: E86.0 Dehydration (principal); I48.21 Permanent atrial fibrillation; I50.22 Chronic systolic (congestive) heart failure; E66.9 Obesity, unspecified; E78.00 Pure hypercholesterolemia, unspecified; E78.5 Hyperlipidemia, unspecified; G40.909 Epilepsy, unspecified, not intractable, without status epilepticus; H91.90 Unspecified hearing loss, unspecified ear; I11.0 Hypertensive heart disease with heart failure; I25.10 Atherosclerotic heart disease of native coronary artery without angina pectoris; I25.2 Old myocardial infarction; I08.3 Combined rheumatic disorders of mitral, aortic and tricuspid valves; I49.3 Ventricular premature depolarization; I95.1 Orthostatic hypotension; J44.9 Chronic obstructive pulmonary disease, unspecified; Z11.59 Encounter for screening for other viral diseases; N40.0 Benign prostatic hyperplasia without lower urinary tract symptoms; Z68.34 Body mass index [BMI] 34.0-34.9, adult; Z79.01 Long term (current) use of anticoagulants; Z91.81 History of falling; Z79.82 Long term (current) use of aspirin; Z79.899 Other long term (current) drug therapy; Z81.8 Family history of other mental and behavioral disorders; Z86.011 Personal history of benign neoplasm of the brain; Z87.01 Personal history of pneumonia (recurrent); Z87.442 Personal history of urinary calculi; Z95.5 Presence of coronary angioplasty implant and graft; R26.9 Unspecified abnormalities of gait and mobility; Z88.0 Allergy status to penicillin
CPT/HCPCS: 36415; 70450; 71045; 80048; 80053; 80178; 80185; 83605; 83735; 83880; 84484; 85025; 85610; 85730; 93005; 93306; 99285

== ENCOUNTER 2020-07-25 11:38 | Emergency (ER) | payer MEDICARE, BC ==
[2020-07-25 11:45] VITALS: RESP 18
[2020-07-25] MEDS ORDERED: SODIUM CHLORIDE 0.9% 500 ML 500 ML IV STA (11:54)
--- NOTE | 2020-07-25 12:08 | ED ---
General Adult HPI - General Chief complaint: Syncope Stated complaint: Syncope/AFIB Time Seen by Provider: 07/25/20 11:53 Source: patient, EMS, RN notes reviewed, old records reviewed Mode of arrival: EMS Limitations: no limitations - History of Present Illness Initial comments: 85-year-old male resents for evaluation of near-syncope. Patient has had 2 episodes over the past 24 hours. He reports blurry vision and lightheadedness. No chest pain or dyspnea. No abdominal pain. No vomiting. No fever. He denies lower extremity pain or swelling. He denies focal numbness or weakness. He denies headache. He did have head trauma approximately 4 months ago. No recent head trauma. - Related Data Home Medications Medication Instructions Recorded Confirmed Tamsulosin [Flomax] 0.4 mg PO DAILY 09/23/16 07/25/20 Phenytoin Sodium Extended 200 mg PO TID 11/21/17 07/25/20 [Dilantin] Atorvastatin Calcium [Lipitor] 40 mg PO HS 01/27/20 07/25/20 Escitalopram [Lexapro] 5 mg PO DAILY 07/25/20 07/25/20 Metoprolol Tartrate [Lopressor] 25 mg PO DAILY 07/25/20 07/25/20 Previous Rx's Medication Instructions Recorded Apixaban [Eliquis] 5 mg PO BID #60 tab 09/26/16 Aspirin 81 mg PO DAILY #30 chew 09/26/16 Acetaminophen Tab [Tylenol] 650 mg PO Q6HR PRN tab 07/18/19 Isosorbide Mononitrate ER [Imdur] 30 mg PO DAILY #30 tab.er.24h 07/18/19 Allergies Allergy/AdvReac Type Severity Reaction Status Date / Time Penicillins Allergy Rash/Hives Verified 07/25/20 13:01 Review of Systems ROS Statement: Those systems with pertinent positive or pertinent negative responses have been documented in the HPI. ROS Other: All systems not noted in ROS Statement are negative. Past Medical History Past Medical History: Coronary Artery Disease (CAD), COPD, Hyperlipidemia, Hypertension, Myocardial Infarction ([place]), Pneumonia, Renal Disease, Seizure Disorder Additional Past Medical History / Comment(s): Pt had recent bilateral pneumonia- completed ABX yesterday. 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 Past medical records indicate HTN, high cholesterol, BPH and COPD, but pt and family deny these-see pt med list. 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 Past trauma Past Anesthesia/Blood Transfusion Reactions: No Reported Reaction Date of Last Stent Placement:: 2014 Past Psychological History: No Psychological Hx Reported Smoking Status: Never smoker Past Alcohol Use History: None Reported Past Drug Use History: None Reported - Past Family History Mother Additional Family Medical History / Comment(s): Mother had mental health problems. Father Family Medical History: No Reported History General Exam Limitations: no limitations General appearance: alert, in no apparent distress Head exam: Present: atraumatic, normocephalic Eye exam: Present: normal appearance, PERRL ENT exam: Present: normal exam Neck exam: Present: normal inspection. Absent: tenderness, meningismus Respiratory exam: Present: normal lung sounds bilaterally. Absent: respiratory distress, wheezes Cardiovascular Exam: Present: tachycardia, irregular rhythm GI/Abdominal exam: Present: soft. Absent: distended, tenderness, guarding Extremities exam: Present: normal inspection, normal capillary refill. Absent: pedal edema Neurological exam: Present: alert, oriented X3, CN II-XII intact. Absent: motor sensory deficit Psychiatric exam: Present: normal affect, normal mood Skin exam: Present: warm, dry, intact. Absent: cyanosis, diaphoretic Course Vital Signs 07/25/20 07/25/20 07/25/20 11:40 12:00 12:30 Temperature 98.1 F Pulse Rate 112 H 115 H 115 H Respiratory 18 18 18 Rate Blood Pressure 146/116 135/106 127/88 O2 Sat by Pulse 98 98 96 Oximetry 07/25/20 07/25/20 13:00 13:30 Temperature Pulse Rate 112 H 108 H Respiratory 18 18 Rate Blood Pressure 157/94 129/92 O2 Sat by Pulse 98 97 Oximetry EKG Findings - EKG Comments: EKG Findings:: EKG: Atrial fibrillation with RVR, rate of 118, QRS duration 88, QTC 487, no ST segment elevation. Medical Decision Making - Medical Decision Making 85-year-old male presenting with near syncope. Patient's has no associated nausea vomiting, no focal numbness or weakness. He had a head injury in January and states that his primary care physician didn't want a CAT scan of the brain. This was performed which is negative for intracranial hemorrhage, shows chronic ischemic changes. Patient has a normal CBC, normal CMP, negative troponin. He has EKG showing atrial fibrillation he is anticoagulated. Rate around 100-110. He is given additional dose of metoprolol. The patient does not want stay in the emergency department for these symptoms. His workup is looking quite good at this time. I did discuss case with his primary care physician Dr. Lopez who is agreeable with discharge and will arrange for close outpatient follow-up. - Lab Data Result diagrams: 07/25/20 12:00 07/25/20 12:00 Lab Results 07/25/20 07/25/20 07/25/20 Range/Units 12:00 12:00 12:00 WBC 7.5 (3.8-10.6) k/uL RBC 4.22 L (4.30-5.90) m/uL Hgb 13.5 (13.0-17.5) gm/dL Hct 39.2 (39.0-53.0) % MCV 93.0 (80.0-100.0) fL MCH 32.0 (25.0-35.0) pg MCHC 34.4 (31.0-37.0) g/dL RDW 13.9 (11.5-15.5) % Plt Count 138 L (150-450) k/uL MPV 7.0 Neutrophils % 68 % Lymphocytes % 25 % Monocytes % 5 % Eosinophils % 1 % Basophils % 0 % Neutrophils # 5.1 (1.3-7.7) k/uL Lymphocytes # 1.8 (1.0-4.8) k/uL Monocytes # 0.4 (0-1.0) k/uL Eosinophils # 0.1 (0-0.7) k/uL Basophils # 0.0 (0-0.2) k/uL PT 10.5 (9.0-12.0) sec INR 1.0 (<1.2) APTT 23.1 (22.0-30.0) sec Sodium 142 (137-145) mmol/L Potassium 4.2 (3.5-5.1) mmol/L Chloride 108 H (98-107) mmol/L Carbon Dioxide 25 (22-30) mmol/L Anion Gap 9 mmol/L BUN 14 (9-20) mg/dL Creatinine 0.63 L (0.66-1.25) mg/dL Est GFR (CKD-EPI)AfAm >90 (>60 ml/min/1.73 sqM) Est GFR (CKD-EPI)NonAf >90 (>60 ml/min/1.73 sqM) Glucose 115 H (74-99) mg/dL Calcium 8.7 (8.4-10.2) mg/dL Magnesium 1.8 (1.6-2.3) mg/dL Total Bilirubin 0.5 (0.2-1.3) mg/dL AST 22 (17-59) U/L ALT 18 (4-49) U/L Alkaline Phosphatase 117 (38-126) U/L Troponin I (0.000-0.034) ng/mL Total Protein 7.0 (6.3-8.2) g/dL Albumin 4.3 (3.5-5.0) g/dL Urine Color Urine Appearance (Clear) Urine pH (5.0-8.0) Ur Specific [place] (1.001-1.035) Urine Protein (Negative) Urine Glucose (UA) (Negative) Urine Ketones (Negative) Urine Blood (Negative) Urine Nitrite (Negative) Urine Bilirubin (Negative) Urine Urobilinogen (<2.0) mg/dL Ur Leukocyte Esterase (Negative) Urine RBC (0-5) /hpf Urine WBC (0-5) /hpf Ur Squamous Epith Cells (0-4) /hpf Urine Bacteria (None) /hpf Hyaline Casts (0-2) /lpf Urine Mucus (None) /hpf 07/25/20 07/25/20 Range/Units 12:00 13:19 WBC (3.8-10.6) k/uL RBC (4.30-5.90) m/uL Hgb (13.0-17.5) gm/dL Hct (39.0-53.0) % MCV (80.0-100.0) fL MCH (25.0-35.0) pg MCHC (31.0-37.0) g/dL RDW (11.5-15.5) % Plt Count (150-450) k/uL MPV Neutrophils % % Lymphocytes % % Monocytes % % Eosinophils % % Basophils % % Neutrophils # (1.3-7.7) k/uL Lymphocytes # (1.0-4.8) k/uL Monocytes # (0-1.0) k/uL Eosinophils # (0-0.7) k/uL Basophils # (0-0.2) k/uL PT (9.0-12.0) sec INR (<1.2) APTT (22.0-30.0) sec Sodium (137-145) mmol/L Potassium (3.5-5.1) mmol/L Chloride (98-107) mmol/L Carbon Dioxide (22-30) mmol/L Anion Gap mmol/L BUN (9-20) mg/dL Creatinine (0.66-1.25) mg/dL Est GFR (CKD-EPI)AfAm (>60 ml/min/1.73 sqM) Est GFR (CKD-EPI)NonAf (>60 ml/min/1.73 sqM) Glucose (74-99) mg/dL Calcium (8.4-10.2) mg/dL Magnesium (1.6-2.3) mg/dL Total Bilirubin (0.2-1.3) mg/dL AST (17-59) U/L ALT (4-49) U/L Alkaline Phosphatase (38-126) U/L Troponin I <0.012 (0.000-0.034) ng/mL Total Protein (6.3-8.2) g/dL Albumin (3.5-5.0) g/dL Urine Color Yellow Urine Appearance Cloudy (Clear) Urine pH 5.5 (5.0-8.0) Ur Specific [place] 1.020 (1.001-1.035) Urine Protein Trace H (Negative) Urine Glucose (UA) Negative (Negative) Urine Ketones Negative (Negative) Urine Blood Negative (Negative) Urine Nitrite Negative (Negative) Urine Bilirubin Negative (Negative) Urine Urobilinogen <2.0 (<2.0) mg/dL Ur Leukocyte Esterase Negative (Negative) Urine RBC 3 (0-5) /hpf Urine WBC 2 (0-5) /hpf Ur Squamous Epith Cells <1 (0-4) /hpf Urine Bacteria Rare H (None) /hpf Hyaline Casts 7 H (0-2) /lpf Urine Mucus Few H (None) /hpf Disposition Clinical Impression: A-fib, Near syncope Disposition: HOME SELF-CARE Condition: Fair Instructions (If sedation given, give patient instructions): A-fib (Atrial Fibrillation) (ED), Near Syncope (ED) Is patient prescribed a controlled substance at d/c from ED?: No Referrals: Roel Lopez DO [Primary Care Provider] - 1-2 days Time of Disposition: 14:01
[2020-07-25 12:13] LABS: Basophils % (A) 0 %; Eosinophils # (A) 0.1 k/uL (0-0.7); Eosinophils % (A) 1 %; HCT 39.2 % (39.0-53.0); HGB 13.5 gm/dL (13.0-17.5); Lymphocytes # (A) 1.8 k/uL (1.0-4.8); Lymphocytes % (A) 25 %; MCHC 34.4 g/dL (31.0-37.0); Monocytes # (A) 0.4 k/uL (0-1.0); Monocytes % (A) 5 %; Neutrophils # (A) 5.1 k/uL (1.3-7.7); Neutrophils % (A) 68 %; Platelet Count 138 k/uL (150-450); RBC 4.22 m/uL (4.30-5.90); RDW 13.9 % (11.5-15.5); WBC 7.5 k/uL (3.8-10.6)
[2020-07-25 12:21] LABS: Partial Thromboplastin Time 23.1 sec (22.0-30.0); Prothrombin Time 10.5 sec (9.0-12.0)
--- NOTE | 2020-07-25 12:22 | XR ---
EXAMINATION TYPE: XR chest 2V DATE OF EXAM: 07/25/2020 COMPARISON: Prior chest x-ray 01/27/2020 HISTORY: Syncope TECHNIQUE: Frontal and lateral views of the chest are obtained on 3 images. FINDINGS: There is no focal air space opacity, pleural effusion, or pneumothorax seen. The cardiac silhouette size is within normal limits, stable. The osseous structures are intact. Aorta is dense. IMPRESSION: No acute cardiopulmonary process.
[2020-07-25 12:31] LABS: ALT 18 U/L (4-49); AST 22 U/L (17-59); African American GFR (CKD) >90 (>60 ml/min/1.73 sqM); Albumin 4.3 g/dL (3.5-5.0); Alkaline Phosphatase 117 U/L (38-126); Anion Gap 9 mmol/L; Blood Urea Nitrogen 14 mg/dL (9-20); Calcium 8.7 mg/dL (8.4-10.2); Carbon Dioxide 25 mmol/L (22-30); Chloride 108 mmol/L (98-107); Glucose 115 mg/dL (74-99); Magnesium 1.8 mg/dL (1.6-2.3); Non-African American GFR(CKD) >90 (>60 ml/min/1.73 sqM); Potassium 4.2 mmol/L (3.5-5.1); Sodium 142 mmol/L (137-145); Total Bilirubin 0.5 mg/dL (0.2-1.3)
[2020-07-25] MEDS ORDERED: METOPROLOL TARTRATE 25 MG TAB PO STA (13:11)
[2020-07-25 13:44] LABS: Appearance,Urine Cloudy (Clear); Bacteria,Urine Rare /hpf; Bilirubin,Urine Negative (Negative); Blood,Urine Negative (Negative); Color,Urine Yellow; Glucose,Urine (UA) Negative (Negative); Hyaline Casts,Urine 7 /lpf (0-2); Ketones,Urine Negative (Negative); Leukocyte Esterase,Urine Negative (Negative); Mucus,Urine Few /hpf; Nitrite,Urine Negative (Negative); PH, Urine 5.5 (5.0-8.0); Protein,Urine Trace (Negative); RBC,Urine 3 /hpf (0-5); Squamous Epithelial Cell,Urine <1 /hpf (0-4); Urobilinogen,Urine <2.0 mg/dL (<2.0); WBC,Urine 2 /hpf (0-5)
--- NOTE | 2020-07-25 13:50 | CT ---
EXAMINATION TYPE: CT brain wo con DATE OF EXAM: 07/25/2020 COMPARISON: 01/27/2020 HISTORY: Dizziness CT DLP: 1099.4 mGycm Automated exposure control for dose reduction was used. FINDINGS: Mild generalized degenerative change with the low attenuation the periventricular white matter. There is dolichoectasia and intracranial atherosclerotic changes. Basal ganglia calcification noted. No ba rium intact. 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
[2020-07-25 14:23] VITALS: BP 140/98; PULSE 103; TEMP 97.9
== END 2020-07-25 14:32 | disposition home or self-care (01) ==
LOC: EC 11:38
DX: I48.91 Unspecified atrial fibrillation (principal); I10 Essential (primary) hypertension; E78.5 Hyperlipidemia, unspecified; N40.0 Benign prostatic hyperplasia without lower urinary tract symptoms; G40.909 Epilepsy, unspecified, not intractable, without status epilepticus; I25.2 Old myocardial infarction; Z79.899 Other long term (current) drug therapy; Z88.0 Allergy status to penicillin; Z95.5 Presence of coronary angioplasty implant and graft
CPT/HCPCS: 36415; 70450; 71046; 80053; 81001; 83735; 84484; 85025; 85610; 85730; 93005; 96360; 99285

== ENCOUNTER 2020-08-23 11:46 | Inpatient (IN) | payer MEDICARE, BC ==
[2020-08-23] MEDS ORDERED: DILTIAZEM DRIP BOLUS FROM BAG 1 MG SOLN IV ONE (11:54)
[2020-08-23] MEDS: DILTIAZEM 125 MG in SODIUM CHLORIDE 0.9% 100 ML IV SCH (12:06)
[2020-08-23 12:25] LABS: Basophils % (A) 0 %; Eosinophils # (A) 0.1 k/uL (0-0.7); Eosinophils % (A) 1 %; HCT 37.1 % (39.0-53.0); HGB 13.2 gm/dL (13.0-17.5); Lymphocytes # (A) 1.3 k/uL (1.0-4.8); Lymphocytes % (A) 25 %; MCH 32.9 pg (25.0-35.0); MCHC 35.6 g/dL (31.0-37.0); MCV 92.4 fL (80.0-100.0); Mean Platelet Volume 7.3; Monocytes # (A) 0.3 k/uL (0-1.0); Monocytes % (A) 6 %; Neutrophils # (A) 3.7 k/uL (1.3-7.7); Neutrophils % (A) 67 %; Platelet Count 143 k/uL (150-450); RBC 4.02 m/uL (4.30-5.90); RDW 14.2 % (11.5-15.5); WBC 5.4 k/uL (3.8-10.6)
--- NOTE | 2020-08-23 12:28 | ED ---
SOB HPI - General Stated Complaint: MARIELA Time Seen by Provider: 08/23/20 11:49 Source: patient, EMS, RN notes reviewed Mode of arrival: EMS Limitations: physical limitation - History of Present Illness Initial Comments: 85-year-old male presents emergency Department with chief complaint of shortness of breath. Patient states she has exertional shortness of breath he does have some mild resting from his breath but states that he gets up or talks it is much worse. Patient is found to be in A. fib and which she does have a history on Eliquis. EMS reports that his heart rate was up in the 150s. Patient denies any chest pain. Patient has no symptoms leg swelling on the usual no fevers or chills no cough or chest congestion. Patient has no abdominal complaints. Patient offers no other symptoms. - Related Data Home Medications Medication Instructions Recorded Confirmed Tamsulosin [Flomax] 0.4 mg PO DAILY 09/23/16 08/23/20 Phenytoin Sodium Extended 200 mg PO TID 11/21/17 08/23/20 [Dilantin] Atorvastatin Calcium [Lipitor] 40 mg PO HS 01/27/20 08/23/20 Escitalopram [Lexapro] 5 mg PO DAILY 07/25/20 08/23/20 Metoprolol Tartrate [Lopressor] 25 mg PO DAILY 07/25/20 08/23/20 Previous Rx's Medication Instructions Recorded Apixaban [Eliquis] 5 mg PO BID #60 tab 09/26/16 Aspirin 81 mg PO DAILY #30 chew 09/26/16 Acetaminophen Tab [Tylenol] 650 mg PO Q6HR PRN tab 07/18/19 Isosorbide Mononitrate ER [Imdur] 30 mg PO DAILY #30 tab.er.24h 07/18/19 Allergies Allergy/AdvReac Type Severity Reaction Status Date / Time Penicillins Allergy Rash/Hives Verified 08/23/20 12:29 Review of Systems ROS Statement: Those systems with pertinent positive or pertinent negative responses have been documented in the HPI. ROS Other: All systems not noted in ROS Statement are negative. Past Medical History Past Medical History: Coronary Artery Disease (CAD), COPD, Hyperlipidemia, Hypertension, Myocardial Infarction ([place]), Pneumonia, Renal Disease, Seizure Disorder Additional Past Medical History / Comment(s): Pt had recent bilateral pneumonia- completed ABX yesterday. 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 Past medical records indicate HTN, high cholesterol, BPH and COPD, but pt and family deny these-see pt med list. 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 Past trauma Past Anesthesia/Blood Transfusion Reactions: No Reported Reaction Date of Last Stent Placement:: 2014 Past Psychological History: No Psychological Hx Reported Smoking Status: Never smoker Past Alcohol Use History: None Reported Past Drug Use History: None Reported - Past Family History Mother Additional Family Medical History / Comment(s): Mother had mental health problems. Father Family Medical History: No Reported History General Exam Limitations: physical limitation General appearance: alert, in no apparent distress Head exam: Present: atraumatic, normocephalic, normal inspection Eye exam: Present: normal appearance, PERRL, EOMI. Absent: scleral icterus, conjunctival injection, periorbital swelling ENT exam: Present: normal exam, normal oropharynx, mucous membranes moist Neck exam: Present: normal inspection, full ROM. Absent: tenderness, meningismus, lymphadenopathy Respiratory exam: Present: normal lung sounds bilaterally. Absent: respiratory distress, wheezes, rales, rhonchi, stridor Cardiovascular Exam: Present: tachycardia, irregular rhythm, normal heart s ounds. Absent: regular rate, normal rhythm, systolic murmur, diastolic murmur, rubs, gallop, clicks GI/Abdominal exam: Present: soft, normal bowel sounds. Absent: distended, tenderness, guarding, rebound, rigid Extremities exam: Absent: pedal edema Course Vital Signs 08/23/20 08/23/20 08/23/20 11:54 12:07 13:00 Temperature 98.2 F Pulse Rate 110 H 105 H 107 H Respiratory 22 20 20 Rate Blood Pressure 171/120 127/98 132/88 O2 Sat by Pulse 96 99 95 Oximetry Medical Decision Making - Medical Decision Making 85-year-old presented for exertional dyspnea. Patient does have A. fib with RVR, chest officials pleural effusion concerning for CHF exacerbation. Patient be admitted Dr. Lopez consult to cardiology. - Lab Data Result diagrams: 08/23/20 12:03 08/23/20 12:03 Lab Results 08/23/20 08/23/20 08/23/20 Range/Units 12:03 12:03 12:03 WBC 5.4 (3.8-10.6) k/uL RBC 4.02 L (4.30-5.90) m/uL Hgb 13.2 (13.0-17.5) gm/dL Hct 37.1 L (39.0-53.0) % MCV 92.4 (80.0-100.0) fL MCH 32.9 (25.0-35.0) pg MCHC 35.6 (31.0-37.0) g/dL RDW 14.2 (11.5-15.5) % Plt Count 143 L (150-450) k/uL MPV 7.3 Neutrophils % 67 % Lymphocytes % 25 % Monocytes % 6 % Eosinophils % 1 % Basophils % 0 % Neutrophils # 3.7 (1.3-7.7) k/uL Lymphocytes # 1.3 (1.0-4.8) k/uL Monocytes # 0.3 (0-1.0) k/uL Eosinophils # 0.1 (0-0.7) k/uL Basophils # 0.0 (0-0.2) k/uL PT 11.3 (9.0-12.0) sec INR 1.1 (<1.2) APTT 24.7 (22.0-30.0) sec Sodium 141 (137-145) mmol/L Potassium 3.6 (3.5-5.1) mmol/L Chloride 110 H (98-107) mmol/L Carbon Dioxide 23 (22-30) mmol/L Anion Gap 8 mmol/L BUN 6 L (9-20) mg/dL Creatinine 0.55 L (0.66-1.25) mg/dL Est GFR (CKD-EPI)AfAm >90 (>60 ml/min/1.73 sqM) Est GFR (CKD-EPI)NonAf >90 (>60 ml/min/1.73 sqM) Glucose 148 H (74-99) mg/dL Plasma Lactic Acid [place] (0.7-2.0) mmol/L Calcium 8.3 L (8.4-10.2) mg/dL Magnesium 1.5 L (1.6-2.3) mg/dL Total Bilirubin 0.6 (0.2-1.3) mg/dL AST 25 (17-59) U/L ALT 23 (4-49) U/L Alkaline Phosphatase 109 (38-126) U/L Troponin I (0.000-0.034) ng/mL NT-Pro-B Natriuret Pep pg/mL Total Protein 6.7 (6.3-8.2) g/dL Albumin 4.1 (3.5-5.0) g/dL 08/23/20 08/23/20 08/23/20 Range/Units 12:03 12:03 12:03 WBC (3.8-10.6) k/uL RBC (4.30-5.90) m/uL Hgb (13.0-17.5) gm/dL Hct (39.0-53.0) % MCV (80.0-100.0) fL MCH (25.0-35.0) pg MCHC (31.0-37.0) g/dL RDW (11.5-15.5) % Plt Count (150-450) k/uL MPV Neutrophils % % Lymphocytes % % Monocytes % % Eosinophils % % Basophils % % Neutrophils # (1.3-7.7) k/uL Lymphocytes # (1.0-4.8) k/uL Monocytes # (0-1.0) k/uL Eosinophils # (0-0.7) k/uL Basophils # (0-0.2) k/uL PT (9.0-12.0) sec INR (<1.2) APTT (22.0-30.0) sec Sodium (137-145) mmol/L Potassium (3.5-5.1) mmol/L Chloride (98-107) mmol/L Carbon Dioxide (22-30) mmol/L Anion Gap mmol/L BUN (9-20) mg/dL Creatinine (0.66-1.25) mg/dL Est GFR (CKD-EPI)AfAm (>60 ml/min/1.73 sqM) Est GFR (CKD-EPI)NonAf (>60 ml/min/1.73 sqM) Glucose (74-99) mg/dL Plasma Lactic Acid [place] 1.7 (0.7-2.0) mmol/L Calcium (8.4-10.2) mg/dL Magnesium (1.6-2.3) mg/dL Total Bilirubin (0.2-1.3) mg/dL AST (17-59) U/L ALT (4-49) U/L Alkaline Phosphatase (38-126) U/L Troponin I <0.012 (0.000-0.034) ng/mL NT-Pro-B Natriuret Pep 2330 pg/mL Total Protein (6.3-8.2) g/dL Albumin (3.5-5.0) g/dL Critical Care Time Critical Care Time: Yes Total Critical Care Time: 35 Critical Care Time: Total 35 minutes of critical care time used initially at the patient, review past smoker history ordering labs EKG chest x-ray patient probably had an A. fib RVR Cardizem was ordered given bolus and infusion, patient does have CHF exacerbation with elevated BMP. Lasix was given. Patient be admitted for further management she with cartilage evaluation. Disposition Clinical Impression: Atrial fibrillation with RVR, Exertional dyspnea, CHF exacerbation Disposition: ADMITTED IP TO THIS HOSP Condition: Fair Referrals: Roel Lopez DO [Primary Care Provider] - 1-2 days
--- NOTE | 2020-08-23 12:36 | XR ---
EXAMINATION TYPE: XR chest 2V DATE OF EXAM: 08/23/2020 COMPARISON: 07/25/2020 HISTORY: 85-year-old male dizziness, shortness of breath, difficulty breathing TECHNIQUE: AP and lateral views FINDINGS: Heart is enlarged. Increasing interstitial and vascular prominence. No brennan consolidation or sizable effusion. IMPRESSION: Cardiomegaly and increasing interstitial prominence. Correlate for CHF with pulmonary vascular conges tion.
[2020-08-23 12:37] LABS: ALT 23 U/L (4-49); AST 25 U/L (17-59); African American GFR (CKD) >90 (>60 ml/min/1.73 sqM); Albumin 4.1 g/dL (3.5-5.0); Alkaline Phosphatase 109 U/L (38-126); Anion Gap 8 mmol/L; Blood Urea Nitrogen 6 mg/dL (9-20); Calcium 8.3 mg/dL (8.4-10.2); Carbon Dioxide 23 mmol/L (22-30); Chloride 110 mmol/L (98-107); Glucose 148 mg/dL (74-99); Magnesium 1.5 mg/dL (1.6-2.3); Non-African American GFR(CKD) >90 (>60 ml/min/1.73 sqM); Potassium 3.6 mmol/L (3.5-5.1); Sodium 141 mmol/L (137-145); Total Bilirubin 0.6 mg/dL (0.2-1.3); Total Protein 6.7 g/dL (6.3-8.2)
[2020-08-23 12:42] LABS: INR 1.1 (<1.2); Partial Thromboplastin Time 24.7 sec (22.0-30.0); Prothrombin Time 11.3 sec (9.0-12.0)
[2020-08-23] MEDS: FUROSEMIDE 10 MG/ML 4 ML VIAL IV SCH ×2 (14:22→23:07)
[2020-08-23] MEDS ORDERED: Magnesium Replacement Protocol 1 EACH MISC MISCELLANE PRN (15:59)
[2020-08-23] MEDS ORDERED: Potassium Replacement Protocol 1 EACH MISC MISCELLANE PRN (15:59)
[2020-08-23] MEDS ORDERED: POTASSIUM CHLORIDE ER 20 MEQ TAB.ER PO SCH (16:00)
[2020-08-23] MEDS ORDERED: ACETAMINOPHEN TAB 325 MG TAB PO PRN (16:09)
[2020-08-23] MEDS ORDERED: amLODIPine 5 MG TAB PO STA (16:14)
[2020-08-23] MEDS: MAGNESIUM SULFATE-D5W PMX 1 GM in DEXTROSE/WATER 1 100ML.BAG IVPB SCH ×2 (18:09→23:08)
[2020-08-23] MEDS: PHENYTOIN SODIUM EXTENDED 100 MG CAP PO SCH (23:08)
[2020-08-23] MEDS: ATORVASTATIN 40 MG TAB PO SCH (23:08)
[2020-08-23] MEDS: APIXABAN 5 MG TAB PO SCH (23:08)
[2020-08-24] MEDS: DILTIAZEM 125 MG in SODIUM CHLORIDE 0.9% 100 ML IV SCH (08:32)
[2020-08-24] MEDS: FUROSEMIDE 10 MG/ML 4 ML VIAL IV SCH (08:33)
[2020-08-24] MEDS: ISOSORBIDE MONONITRATE ER 30 MG TAB.ER.24H PO SCH (08:33)
[2020-08-24] MEDS: ASPIRIN 81 MG PO SCH (08:33)
[2020-08-24] MEDS: ESCITALOPRAM 5 MG TAB PO SCH (08:33)
[2020-08-24] MEDS: APIXABAN 5 MG TAB PO SCH ×2 (08:33→22:03)
[2020-08-24] MEDS: TAMSULOSIN 0.4 MG CAP.ER.24H PO SCH (08:34)
[2020-08-24] MEDS: PHENYTOIN SODIUM EXTENDED 100 MG CAP PO SCH ×3 (08:34→22:01)
[2020-08-24] MEDS ORDERED: METOPROLOL TARTRATE 25 MG TAB PO STA (08:48)
[2020-08-24] MEDS ORDERED: METOPROLOL TARTRATE 25 MG TAB PO SCH ×2 (09:00)
[2020-08-24] MEDS ORDERED: lisinopriL 5 MG TAB PO SCH (09:00)
[2020-08-24] MEDS ORDERED: lisinopriL 5 MG TAB PO STA (10:02)
[2020-08-24] MEDS: SPIRONOLACTONE 25 MG TAB PO SCH (10:39)
--- NOTE | 2020-08-24 11:00 | ECHOF ---
Referral Reason:LV function MEASUREMENTS -------- HEIGHT: 175.3 cm WEIGHT: 108.9 kg BP: 139/68 RVIDd: 3.7 cm (< 3.3) IVSd: 1.2 cm (0.6 - 1.1) LVIDd: 5.4 cm (3.9 - 5.3) LVPWd: 1.3 cm (0.6 - 1.1) IVSs: 1.3 cm LVIDs: 4.5 cm LVPWs: 2.0 cm LAESV Index (A-L): 56.77 ml/m Ao Diam: 4.2 cm (2.0 - 3.7) AV Cusp: 2.3 cm (1.5 - 2.6) LA Diam: 4.2 cm (2.7 - 3.8) MV EXCURSION: 15.965 mm (> 18.000) MV EF SLOPE: 239 mm/s (70 - 150) EPSS: 1.8 cm RAP: 5.00 mmHg RVSP: 35.25 mmHg FINDINGS -------- Atrial fibrillation. This was a technically difficult study with suboptimal views. The left ventricular size is normal. There is mild concentric left ventricular hypertrophy. There is severe global hypokinesis of LV . Overall left ventricular systolic function is severely impair ed with, an EF between 20 - 25 %. Left ventricular fillimg pressure cannot be estimated due to Atri al fibrillation. The right ventricle is mildly enlarged. LA is severely dilated >40 ml/m2 The right atrium was not well visualized. Lumason used Interatrial and interventricular septum intact. There is mild aortic valve sclerosis. There is no evidence of aortic regurgitation. There is no e vidence of aortic stenosis. The mitral valve leaflets are mildly thickened. Mild mitral annular calcification present. Modera te mitral regurgitation is present. Mild tricuspid regurgitation present. There is mild pulmonary hypertension. The right ventricular systolic pressure, as measured by Doppler, is 35.25mmHg. Trace/mild (physiologic) pulmonic regurgitation. The aortic root size is normal. IVC Not well visulized. There is no pericardial effusion. CONCLUSIONS -------- 1. This was a technically difficult study with suboptimal views. 2. There is mild concentric left ventricular hypertrophy. 3. There is severe global hypokinesis of LV . 4. Overall left ventricular systolic function is severely impaired with, an EF between 20 - 25 %. 5. Left ventricular fillimg pressure cannot be estimated due to Atrial fibrillation. 6. The right ventricle is mildly enlarged. 7. LA is severely dilated >40 ml/m2 8. There is mild aortic valve sclerosis. 9. The mitral valve leaflets are mildly thickened. 10. Mild mitral annular calcification present. 11. Moderate mitral regurgitation is present. 12. Mild tricuspid regurgitation present. 13. There is mild pulmonary hypertension. 14. Trace/mild (physiologic) pulmonic regurgitation. ENGINEERING EQUIPMENT OPERATOR: Shruti Vazquez RDCS
[2020-08-24 12:35] VITALS: BMI 35.6
[2020-08-24] MEDS ORDERED: Potassium Replacement Protocol 1 EACH MISC MISCELLANE PRN (12:39)
--- NOTE | 2020-08-24 12:39 | P.CRDCN ---
History of Present Illness Consult date: 08/24/20 History of present illness: CHIEF COMPLAINT: CHF, A. fib with RVR HISTORY OF PRESENT ILLNESS: This is a 85-year-old male with a past medical history significant for chronic atrial fibrillation, hypertension, hyperlipidemia, PE, COPD, and coronary artery disease with stent placement to the LAD in 2011. Patient follows in the office with Dr. Jimenes. We have been asked to see the patient in consultation for CHF and A. fib with RVR. Patient presented to the hospital with a chief complaint of shortness of breath as worsened over the past few days. Patient was found to be in A. fib with RVR upon admission to the hospital. He was started on IV Cardizem. The patient's heart rate remains uncontrolled this morning. Patient was also found to be in CHF. He was started on IV Lasix 40 mg every 12 hours in the emergency room. Patient states his shortness of breath has resolved at time of examination this morning. Fluid balance over the last 24 hours is -2160 mL. DIAGNOSTICS: EKG reveals A. fib with RVR Chest xray cardiomegaly and increasing interstitial prominence. Correlate for CHF with pulmonary vascular congestion Laboratory data: WBC 5.4. Hemoglobin 13.2. Platelet count 143. Sodium 141. Potassium 3.6. BUN 6. Creatinine 0.55. Troponin negative 1. BNP 2330. Current home cardiac medications include metoprolol 25 mg daily, Imdur 30 mg daily, Lipitor 40 mg daily, aspirin 81 mg daily, and Eliquis 5 mg twice a day Echocardiogram completed in January 2020 revealed ejection fraction 35-40% REVIEW OF SYSTEMS: At the time of my exam: CONSTITUTIONAL: Denies fever or chills. HEENT: Denies blurred vision, vision changes, or eye pain. Denies hemoptysis CARDIOVASCULAR: Denies chest pain, orthopnea, PND or palpitations RESPIRATORY: No shortness of breath. GASTROINTESTINAL: Denies abdominal pain. Denies nausea or vomiting. HEMATOLOGIC: Denies bleeding disorders. GENITOURINARY: Denies any blood in urine. SKIN: Denies pruitis. Denies rash. PHYSICAL EXAM: VITAL SIGNS: Reviewed. GENERAL: Well-developed in no acute distress. HEENT: Head is normocephalic. Pupils are equal, round. Sclerae anicteric. Mucous membranes of the mouth are moist. Neck supple. No JVD or thyromegaly LUNGS: Respirations even and unlabored. Lungs diminished with minimal bibasilar rales HEART: Irregular rate and rhythm. S1 and S2 heard. ABDOMEN: Soft. Nondistended. Nontender. EXTREMITIES: Normal range of motion. No clubbing or cyanosis. Peripheral pulses intact. Trace bilateral lower extremity edema NEUROLOGIC: Awake and alert. Oriented x 3. ASSESSMENT: Chronic persistent atrial fibrillation with RVR, on anticoagulation with Eliquis Acute exacerbation of chronic systolic congestive heart failure, EF 35-40% Coronary disease with previous stent placement LAD, 2012 Hypertension Hyperlipidemia COPD History of PE PLAN: Obtain 2-D echo to assess cardiac structure and function Continue Eliquis for anticoagulation Resume home cardiac medications Increase metoprolol to 50 mg twice a day. Given additional dose of 25 mg now Discontinue IV Cardizem Discontinue IV Lasix. Begin oral Lasix 40 mg BID. Add Aldactone 25 mg daily Monitor kidney function Accurate I&O Daily weight Further recommendations pending patient's course Nurse practitioner note has been reviewed by physician. Signing provider agrees with the documented findings, assessment, and plan of care. 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 Past trauma Past Anesthesia/Blood Transfusion Reactions: No Reported Reaction Date of Last Stent Placement:: 2014 Smoking Status: Never smoker - Past Family History Mother Additional Family Medical History / Comment(s): Mother had mental health problems. Father Family Medical History: No Reported History Medications and Allergies Home Medications Medication Instructions Recorded Confirmed Type Tamsulosin [Flomax] 0.4 mg PO DAILY 09/23/16 08/23/20 History Apixaban [Eliquis] 5 mg PO BID #60 tab 09/26/16 08/23/20 Rx Aspirin 81 mg PO DAILY #30 chew 09/26/16 08/23/20 Rx Phenytoin Sodium Extended 200 mg PO TID 11/21/17 08/23/20 History [Dilantin] Acetaminophen Tab [Tylenol] 650 mg PO Q6HR PRN tab 07/18/19 08/23/20 Rx Isosorbide Mononitrate ER [Imdur] 30 mg PO DAILY #30 tab.er.24h 07/18/19 08/23/20 Rx Atorvastatin Calcium [Lipitor] 40 mg PO HS 01/27/20 08/23/20 History Escitalopram [Lexapro] 5 mg PO DAILY 07/25/20 08/23/20 History Metoprolol Tartrate [Lopressor] 25 mg PO DAILY 07/25/20 08/23/20 History Allergies Allergy/AdvReac Type Severity Reaction Status Date / Time Penicillins Allergy Rash/Hives Verified 08/23/20 12:29 Physical Exam Vitals: Vital Signs Temp Pulse Pulse Resp BP BP Pulse Ox 08/24/20 08:00 97.5 F L 118 H 18 139/68 97 08/24/20 04:00 97.9 F 118 H 18 147/88 97 08/24/20 02:00 61 18 08/24/20 00:00 97.6 F 61 18 152/91 95 08/23/20 20:00 88 18 08/23/20 16:05 88 18 08/23/20 15:30 98.0 F 88 18 115/111 98 08/23/20 15:05 98.4 F 99 20 142/85 97 08/23/20 14:00 107 H 20 133/94 99 08/23/20 13:00 107 H 20 132/88 95 08/23/20 12:07 105 H 20 127/98 99 08/23/20 11:54 98.2 F 110 H 22 171/120 96 Intake and Output 01/21/21 01/22/21 01/22/21 22:59 06:59 14:59 Intake Total 240 102.167 Output Total 1600 800 800 Balance -4931 -167 -144.051 Intake: Intake, IV Titration 102.167 Amount Diltiazem 125 mg In 102.167 Sodium Chloride 0.9% 100 ml @ 5 MG/HR 5 mls/hr IV .Q24H [facility] Rx#:[id number] Oral 240 Output: Urine 1600 800 800 Other: Voiding Method Toilet Toilet Toilet Urinal Urinal Urinal # Voids 2 4 2 Weight 112.219 kg 109.3 kg Results 08/23/20 12:03 08/23/20 12:03 Cardiac Enzymes 08/23/20 08/23/20 Range/Units 12:03 12:03 AST 25 (17-59) U/L Troponin I <0.012 (0.000-0.034) ng/mL Coagulation 08/23/20 Range/Units 12:03 PT 11.3 (9.0-12.0) sec APTT 24.7 (22.0-30.0) sec CBC 08/23/20 Range/Units 12:03 WBC 5.4 (3.8-10.6) k/uL RBC 4.02 L (4.30-5.90) m/uL Hgb 13.2 (13.0-17.5) gm/dL Hct 37.1 L (39.0-53.0) % Plt Count 143 L (150-450) k/uL Comprehensive Metabolic Panel 08/23/20 Range/Units 12:03 Sodium 141 (137-145) mmol/L Potassium 3.6 (3.5-5.1) mmol/L Chloride 110 H (98-107) mmol/L Carbon Dioxide 23 (22-30) mmol/L BUN 6 L (9-20) mg/dL Creatinine 0.55 L (0.66-1.25) mg/dL Glucose 148 H (74-99) mg/dL Calcium 8.3 L (8.4-10.2) mg/dL AST 25 (17-59) U/L ALT 23 (4-49) U/L Alkaline Phosphatase 109 (38-126) U/L Total Protein 6.7 (6.3-8.2) g/dL Albumin 4.1 (3.5-5.0) g/dL Current Medications Generic Name Dose Route Start Last Admin Trade Name Freq PRN Reason Stop Dose Admin Acetaminophen 650 mg 08/23/20 16:09 Acetaminophen Tab 325 Mg Tab PO Q6HR PRN Mild Pain or Fever >= 100.5 Apixaban 5 mg 08/23/20 21:00 08/24/20 08:33 Apixaban 5 Mg Tab PO 5 mg BID MARYBEL Administration Aspirin 81 mg 08/24/20 09:00 08/24/20 08:33 Aspirin 81 Mg PO 81 mg DAILY MARYBEL Administration Atorvastatin Calcium 40 mg 08/23/20 21:00 08/23/20 23:08 Atorvastatin 40 Mg Tab PO 40 mg HS [facility] Administration Escitalopram Oxalate 5 mg 08/24/20 09:00 08/24/20 08:33 Escitalopram 5 Mg Tab PO 5 mg DAILY [facility] Administration Furosemide 40 mg 08/24/20 16:00 Furosemide 40 Mg Tab PO BID@0900,1600 [facility] Isosorbide Mononitrate 30 mg 08/24/20 09:00 08/24/20 08:33 Isosorbide Mononitrate Er 30 Mg Tab.Er.24h PO 30 mg DAILY [facility] Administration Lisinopril 10 mg 08/25/20 09:00 Lisinopril 10 Mg Tab PO DAILY [facility] Metoprolol Tartrate 50 mg 08/24/20 21:00 Metoprolol Tartrate 50 Mg Tab PO BID [facility] Miscellaneous Information 1 each 08/23/20 15:59 Magnesium Replacement Protocol 1 Each [facility] [place] DAILY PRN Per Protocol Protocol Miscellaneous Information 1 each 08/23/20 15:59 Potassium Replacement Protocol 1 Each [facility] [place] DAILY PRN Per Protocol Protocol Phenytoin Sodium 200 mg 08/23/20 22:00 08/24/20 08:34 Phenytoin Sodium Extended 100 Mg Cap PO 200 mg TID [facility] Administration Spironolactone 25 mg 08/24/20 10:15 08/24/20 10:39 Spironolactone 25 Mg Tab PO 25 mg DAILY [facility] Administration Tamsulosin HCl 0.4 mg 08/24/20 09:00 08/24/20 08:34 Tamsulosin 0.4 Mg Cap.Er.24h PO 0.4 mg DAILY MARYBEL Administration Intake and Output 08/23/20 08/24/20 08/24/20 22:59 06:59 14:59 Intake Total 240 102.167 Output Total 1600 800 800 Balance -1360 -800 -697.833 Intake: Intake, IV Titration 102.167 Amount Diltiazem 125 mg In 102.167 Sodium Chloride 0.9% 100 ml @ 5 MG/HR 5 mls/hr IV .Q24H [facility] Rx#:[id number] Oral 240 Output: Urine 1600 800 800 Other: Voiding Method Toilet Toilet Toilet Urinal Urinal Urinal # Voids 2 4 2 Weight 112.219 kg 109.3 kg 08/23/20 12:03 08/23/20 12:03
--- NOTE | 2020-08-24 12:52 | P.HPIM ---
History of Present Illness H&P Date: 08/24/20 Chief Complaint: shortness of breath X few days. This is an 85-year-old gentleman with past medical history of coronary artery disease/HI/ stent placement, chronic atrial fibrillation anticoagulated on Eliquis, pancreatitis, hypertension, hyperlipidemia, seizure disorder, n ephrolithiasis, BPH, PND and other medical problems and obesity presented to ER with complaints of shortness of breath for a few days, intensive with talking and exertion. Patient also in A. fib RVR upon arrival, EMS reported heart rate up into the 150s. Denies chest pain, palpitations. Denies nausea vomiting or diarrhea. Denies abdominal pain. Denies chills fever or cough or congestion. Denies lightheadedness dizziness or focal deficits. Chest x-ray reporting cardiomegaly, increasing interstitial prominence, possible CHF and pulmonary vascular congestion. EKG reported atrial fibrillation, HR 118,, PVCs. Magnesium 1.5, supplemented and currently 1.9.Troponin negative 1. Afebrile, normal WBC. Hemoglobin 13.2, platelets, sodium 146, potassium 3.6 , BUN 6, creatinine 0.55, glucose 148, lactic acid 1.7, BNP 2330. Echo pending. Initiated on Cardizem drip, Lasix IV push. Review of Systems ROS Statement: Those systems with pertinent positive or pertinent negative responses have been documented in the HPI. ROS Other: All systems not noted in ROS Statement are negative. 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 Past trauma Past Anesthesia/Blood Transfusion Reactions: No Reported Reaction Date of Last Stent Placement:: 2014 Smoking Status: Never smoker - Past Family History Mother Additional Family Medical History / Comment(s): Mother had mental health problems. Father Family Medical History: No Reported History Medications and Allergies Home Medications Medication Instructions Recorded Confirmed Type Tamsulosin [Flomax] 0.4 mg PO DAILY 09/23/16 08/23/20 History Apixaban [Eliquis] 5 mg PO BID #60 tab 09/26/16 08/23/20 Rx Aspirin 81 mg PO DAILY #30 chew 09/26/16 08/23/20 Rx Phenytoin Sodium Extended 200 mg PO TID 11/21/17 08/23/20 History [Dilantin] Acetaminophen Tab [Tylenol] 650 mg PO Q6HR PRN tab 07/18/19 08/23/20 Rx Isosorbide Mononitrate ER [Imdur] 30 mg PO DAILY #30 tab.er.24h 07/18/19 08/23/20 Rx Atorvastatin Calcium [Lipitor] 40 mg PO HS 01/27/20 08/23/20 History Escitalopram [Lexapro] 5 mg PO DAILY 07/25/20 08/23/20 History Metoprolol Tartrate [Lopressor] 25 mg PO DAILY 07/25/20 08/23/20 History Allergies Allergy/AdvReac Type Severity Reaction Status Date / Time Penicillins Allergy Rash/Hives Verified 08/23/20 12:29 Physical Exam Vitals: Vital Signs Temp Pulse Pulse Resp BP BP Pulse Ox 08/24/20 08:00 97.5 F L 118 H 18 139/68 97 08/24/20 04:00 97.9 F 118 H 18 147/88 97 08/24/20 02:00 61 18 08/24/20 00:00 97.6 F 61 18 152/91 95 08/23/20 20:00 88 18 08/23/20 16:05 88 18 08/23/20 15:30 98.0 F 88 18 115/111 98 08/23/20 15:05 98.4 F 99 20 142/85 97 08/23/20 14:00 107 H 20 133/94 99 08/23/20 13:00 107 H 20 132/88 95 08/23/20 12:07 105 H 20 127/98 99 08/23/20 11:54 98.2 F 110 H 22 171/120 96 Intake and Output 08/23/20 08/24/20 08/24/20 22:59 06:59 14:59 Intake Total 240 102.167 Output Total 1600 800 800 Balance -8268 -735 -581.561 Intake: Intake, IV Titration 102.167 Amount Diltiazem 125 mg In 102.167 Sodium Chloride 0.9% 100 ml @ 5 MG/HR 5 mls/hr IV .Q24H [facility] Rx#:[id number] Oral 240 Output: Urine 1600 800 800 Other: Voiding Method Toilet Toilet Toilet Urinal Urinal Urinal # Voids 2 4 2 Weight 112.219 kg 109.3 kg PHYSICAL EXAM: VITAL SIGNS: [As above] GENERAL: Sitting up in bed, no acute distress. HEENT: Conjunctivae normal. eyes normal. Oral mucosa moist. NECK: No JVD. No thyroid enlargement. No LNs CARDIOVASCULAR: S1, S2 regular.systolic murmur. RESPIRATION: Breath sounds diminished in the bases. No rhonchi. Fine bibasilar crackles. ABDOMEN: Soft, nontender . No guarding. no masses palpable. No ascites, No hepatosplenomegaly.Bowel sounds heard. LEGS: Minimal lower extremity edema, no calf tenderness. No clubbing, no cyanosis. PSYCHIATRY: Alert and oriented X3, mood and affect normal. NERVOUS SYSTEM: Cranial N 2-12 grossly normal. Moves all 4 limbs. Diffuse weakness No focal deficits. Strength and sensation grossly intact.. Skin: no lesions, no rash Joints: No active swelling. No inflammation. Lymphatic system. No LN neck axilla or groin. Results CBC & Chem 7: 08/23/20 12:03 08/23/20 12:03 Labs: Abnormal Lab Results - Last 24 Hours (Table) 08/23/20 08/23/20 Range/Units 12:03 12:03 RBC 4.02 L (4.30-5.90) m/uL Hct 37.1 L (39.0-53.0) % Plt Count 143 L (150-450) k/uL Chloride 110 H (98-107) mmol/L BUN 6 L (9-20) mg/dL Creatinine 0.55 L (0.66-1.25) mg/dL Glucose 148 H (74-99) mg/dL Calcium 8.3 L (8.4-10.2) mg/dL Magnesium 1.5 L (1.6-2.3) mg/dL Thrombosis Risk Factor Assmnt - Choose All That Apply Any of the Below Risk Factors Present?: Yes Each Factor Represents 1 point: Abnormal pulmonary function (COPD), Obesity (BMI >25), Swollen legs (current) Other Risk Factors: Yes Each Risk Factor Represents 3 Points: Age 75 years or older Other congenital or acquired thrombophilia - If yes, enter type in comment: No Thrombosis Risk Factor Assessment Total Risk Factor Score: 6 Thrombosis Risk Factor Assessment Level: High Risk Assessment and Plan Assessment: Chronic persistent A. fib with RVR, anticoagulated on Eliquis Acute CHF exacerbation, systolic dysfunction, EF 35-40%, echo pending COPD CAD, history of HI, stents Hypertension Hyperlipidemia Seizure disorder Obesity, BMI 35.6 History of DVTs/PE Pulmonary hypertension Plan: Continue on current medication regime ,monitoring and symptomatic treatment. Echo pending. Currently on Cardizem drip. Antiarrhythmics as diuretics as per cardiology.anticoagulated on Eliquis .Home medications reviewed and resumed. Strict I&O,close monitoring of electrolytes, renal function with repeat labs ordered for a.m. The impression and plan of care has been dictated as directed. : I performed a history and examination of this patient, discussed the same with the dictator. I agree with the dictator's note ,documented as a scribe. Any additional findings or plans will be noted.
[2020-08-24] MEDS: PANTOPRAZOLE 40 MG/10 ML VIAL IVP SCH (17:10)
[2020-08-24] MEDS: FUROSEMIDE 40 MG TAB PO SCH (17:10)
[2020-08-24 20:10] LABS: Glucose,Whole Blood 125 mg/dL (75-99)
[2020-08-24] MEDS: METOPROLOL TARTRATE 50 MG TAB PO SCH (22:02)
[2020-08-24] MEDS: ATORVASTATIN 40 MG TAB PO SCH (22:03)
[2020-08-25 07:48] LABS: Basophils % (A) 1 %; Eosinophils # (A) 0.1 k/uL (0-0.7); Eosinophils % (A) 2 %; HCT 39.5 % (39.0-53.0); HGB 13.7 gm/dL (13.0-17.5); Lymphocytes # (A) 1.9 k/uL (1.0-4.8); Lymphocytes % (A) 29 %; MCH 31.9 pg (25.0-35.0); MCHC 34.7 g/dL (31.0-37.0); MCV 91.9 fL (80.0-100.0); Monocytes # (A) 0.4 k/uL (0-1.0); Monocytes % (A) 7 %; Neutrophils % (A) 60 %; Platelet Count 145 k/uL (150-450); RBC 4.29 m/uL (4.30-5.90); RDW 14.1 % (11.5-15.5); WBC 6.6 k/uL (3.8-10.6)
[2020-08-25 07:57] LABS: African American GFR (CKD) >90 (>60 ml/min/1.73 sqM); Anion Gap 7 mmol/L; Blood Urea Nitrogen 18 mg/dL (9-20); Calcium 8.5 mg/dL (8.4-10.2); Carbon Dioxide 26 mmol/L (22-30); Chloride 107 mmol/L (98-107); Glucose 133 mg/dL (74-99); Non-African American GFR(CKD) >90 (>60 ml/min/1.73 sqM); Potassium 3.7 mmol/L (3.5-5.1); Sodium 140 mmol/L (137-145)
[2020-08-25 08:11] VITALS: RESP 18
[2020-08-25] MEDS: APIXABAN 5 MG TAB PO SCH (08:11)
[2020-08-25] MEDS: ASPIRIN 81 MG PO SCH (08:11)
[2020-08-25] MEDS: TAMSULOSIN 0.4 MG CAP.ER.24H PO SCH (08:11)
[2020-08-25] MEDS: SPIRONOLACTONE 25 MG TAB PO SCH (08:11)
[2020-08-25] MEDS: ESCITALOPRAM 5 MG TAB PO SCH (08:12)
[2020-08-25] MEDS: FUROSEMIDE 40 MG TAB PO SCH ×2 (08:12→15:09)
[2020-08-25] MEDS: PHENYTOIN SODIUM EXTENDED 100 MG CAP PO SCH ×2 (08:12→15:09)
[2020-08-25] MEDS: ISOSORBIDE MONONITRATE ER 30 MG TAB.ER.24H PO SCH (08:12)
[2020-08-25] MEDS: PANTOPRAZOLE 40 MG/10 ML VIAL IVP SCH (08:12)
[2020-08-25] MEDS: METOPROLOL TARTRATE 50 MG TAB PO SCH (08:12)
[2020-08-25] MEDS ORDERED: lisinopriL 10 MG TAB PO SCH (09:00)
[2020-08-25 11:38] VITALS: TEMP 97.6
--- NOTE | 2020-08-25 13:31 | P.PN ---
Subjective Progress Note Date: 08/25/20 CHIEF COMPLAINT: CHF, A. fib with RVR HISTORY OF PRESENT ILLNESS: This is a 85-year-old male with a past medical history significant for chronic atrial fibrillation, hypertension, hyperlipidemia, PE, COPD, and coronary artery disease with stent placement to the LAD in 2011. Patient follows in the office with Dr. Jimenes. We have been asked to see the patient in consultation for CHF and A. fib with RVR. Patient presented to the hospital with a chief complaint of shortness of breath as worsened over the past few days. Patient was found to be in A. fib with RVR upon admission to the hospital. He was started on IV Cardizem. The patient's heart rate remains uncontrolled this morning. Patient was also found to be in CHF. He was started on IV Lasix 40 mg every 12 hours in the emergency room. Patient states his shortness of breath has resolved at time of examination this morning. Fluid balance over the last 24 hours is -2160 mL. DIAGNOSTICS: EKG reveals A. fib with RVR Chest xray cardiomegaly and increasing interstitial prominence. Correlate for CHF with pulmonary vascular congestion Laboratory data: WBC 5.4. Hemoglobin 13.2. Platelet count 143. Sodium 141. Potassium 3.6. BUN 6. Creatinine 0.55. Troponin negative 1. BNP 2330. Current home cardiac medications include metoprolol 25 mg daily, Imdur 30 mg daily, Lipitor 40 mg daily, aspirin 81 mg daily, and Eliquis 5 mg twice a day Echocardiogram completed in January 2020 revealed ejection fraction 35-40% 08/25: Patient states that he is feeling well today. His heart rate is controlled with increase metoprolol from yesterday. He is off IV medications. Lasix is oral at 40 mg twice daily. Patient has been afebrile, heart rate 88, blood pressure 122/83, pulse ox 96% on room air. Hemoglobin is 13.7, platelet count 145. Creatinine 0.58. Echocardiogram reveals EF of 20-25%, LA severely dilated greater than 40 mg per M2, mild aortic valve sclerosis, moderate mitral regurgitation, mild tricuspid regurgitation, mild pulmonary hypertension. PHYSICAL EXAM: GENERAL: Well-developed in no acute distress. HEENT: Head is normocephalic. Pupils are equal, round. Sclerae anicteric. Mucous membranes of the mouth are moist. Neck supple. No JVD or thyromegaly LUNGS: Respirations even and unlabored. Lungs diminished with minimal bibasilar rales HEART: Irregular rate and rhythm. S1 and S2 heard. ABDOMEN: Soft. Nondistended. Nontender. EXTREMITIES: Normal range of motion. No clubbing or cyanosis. Peripheral pulse s intact. Trace bilateral lower extremity edema NEUROLOGIC: Awake and alert. Oriented x 3. ASSESSMENT: Chronic persistent atrial fibrillation with RVR, on anticoagulation with Eliquis Acute exacerbation of chronic systolic congestive heart failure, EF 35-40% Coronary disease with previous stent placement LAD, 2011 Hypertension Hyperlipidemia COPD History of PE PLAN: Continue Eliquis for anticoagulation Continue metoprolol to 50 mg twice a day. Continue Aldactone 25 mg daily Continue home medications Monitor kidney function Accurate I&O Daily weight Further recommendations pending patient's course Nurse practitioner note has been reviewed by physician. Signing provider agrees with the documented findings, assessment, and plan of care. Objective - Vital Signs Vital signs: Vital Signs Temp 97.6 F 08/25/20 11:37 Pulse 88 08/25/20 11:37 Resp 18 08/25/20 11:37 BP 122/83 08/25/20 11:37 Pulse Ox 96 08/25/20 11:37 Intake & Output 08/24/20 08/25/20 08/25/20 18:59 06:59 18:59 Intake Total 441.167 240 Output Total 800 Balance -358.833 240 Weight 109.3 kg 106.4 kg Intake: Intake, IV Titration 102.167 Amount Diltiazem 125 mg In 102.167 Sodium Chloride 0.9% 100 ml @ 5 MG/HR 5 mls/hr IV .Q24H [facility] Rx#:[id number] Oral 339 240 Output: Urine 800 Other: Voiding Method Toilet Toilet Toilet Urinal Urinal Urinal # Voids 2 3 - Labs CBC & Chem 7: 08/25/20 07:30 08/25/20 07:30 Labs: Abnormal Lab Results - Last 24 Hours (Table) 08/24/20 08/25/20 08/25/20 Range/Units 20:09 07:30 07:30 RBC 4.29 L (4.30-5.90) m/uL Plt Count 145 L (150-450) k/uL Creatinine 0.58 L (0.66-1.25) mg/dL Glucose 133 H (74-99) mg/dL POC Glucose (mg/dL) 125 H (75-99) mg/dL
[2020-08-25 15:08] VITALS: BP 110/64; PULSE 63
--- NOTE | 2020-08-25 15:55 | P.DS ---
Providers Date of admission: 08/23/20 13:47 Expected date of discharge: 08/25/20 Attending physician: Roel Lopez Consults: 08/23/20 13:54 Consult Physician Routine Consulting Provider: Narinder Frye Consult Reason/Comments: chf/afib Do you want consulting provider notified?: Yes Primary care physician: Roel [facility] [place] Course: 85-year-old male with a past medical history significant for chronic atrial fibrillation, hypertension, hyperlipidemia, PE, COPD, and coronary artery disease with stent placement to the LAD in 2011. Patient follows in the office with Dr. Jimenes. We have been asked to see the patient in consultation for CHF and A. fib with RVR. Patient presented to the hospital with a chief complaint of shortness of breath as worsened over the past few days. Patient was found to be in A. fib with RVR upon admission to the hospital. He was started on IV Cardizem. The patient's heart rate remains uncontrolled this morning. Patient was also found to be in CHF. He was started on IV Lasix 40 mg every 12 hours in the emergency room. Patient states his shortness of breath has resolved at time of examination this morning. Fluid balance over the last 24 hours is -2160 mL. DIAGNOSTICS: EKG reveals A. fib with RVR Chest xray cardiomegaly and increasing interstitial prominence. Correlate for CHF with pulmonary vascular congestion Laboratory data: WBC 5.4. Hemoglobin 13.2. Platelet count 143. Sodium 141. Potassium 3.6. BUN 6. Creatinine 0.55. Troponin negative 1. BNP 2330. Current home cardiac medications include metoprolol 25 mg daily, Imdur 30 mg daily, Lipitor 40 mg daily, aspirin 81 mg daily, and Eliquis 5 mg twice a day Echocardiogram completed in January 2020 revealed ejection fraction 35-40% 08/25: Patient states that he is feeling well today. His heart rate is controlled with increase metoprolol from yesterday. He is off IV medications. Lasix is oral at 40 mg twice daily. Patient has been afebrile, heart rate 88, blood pressure 122/83, pulse ox 96% on room air. Hemoglobin is 13.7, platelet count 145. Creatinine 0.58. Echocardiogram reveals EF of 20-25%, LA severely dilated greater than 40 mg per M2, mild aortic valve sclerosis, moderate mitral regurgitation, mild tricuspid regurgitation, mild pulmonary hypertension. Continue Eliquis for anticoagulation Continue metoprolol to 50 mg twice a day. Continue Aldactone 25 mg daily; Lisinopril 40mg daily; Monitor kidney function Patient Condition at Discharge: Fair Plan - Discharge Summary Discharge Rx Participant: No New Discharge Prescriptions: New Spironolactone [Aldactone] 25 mg PO DAILY #30 tab Furosemide [Lasix] 40 mg PO BID@0900,1600 #60 tab Metoprolol Tartrate [Lopressor] 50 mg PO BID #60 tab lisinopriL [Zestril] 10 mg PO DAILY #30 tab Continue Tamsulosin [Flomax] 0.4 mg PO DAILY Apixaban [Eliquis] 5 mg PO BID #60 tab Aspirin 81 mg PO DAILY #30 chew Phenytoin Sodium Extended [Dilantin] 200 mg PO TID Isosorbide Mononitrate ER [Imdur] 30 mg PO DAILY #30 tab.er.24h Acetaminophen Tab [Tylenol] 650 mg PO Q6HR PRN tab PRN Reason: Mild Pain Or Fever >= 100.5 Atorvastatin Calcium [Lipitor] 40 mg PO HS Escitalopram [Lexapro] 5 mg PO DAILY Discontinued Metoprolol Tartrate [Lopressor] 25 mg PO DAILY Discharge Medication List Tamsulosin [Flomax] 0.4 mg PO DAILY 09/23/16 [History] Apixaban [Eliquis] 5 mg PO BID #60 tab 09/26/16 [Rx] Aspirin 81 mg PO DAILY #30 chew 09/26/16 [Rx] Phenytoin Sodium Extended [Dilantin] 200 mg PO TID 11/21/17 [History] Acetaminophen Tab [Tylenol] 650 mg PO Q6HR PRN tab 07/18/19 [Rx] Isosorbide Mononitrate ER [Imdur] 30 mg PO DAILY #30 tab.er.24h 07/18/19 [Rx] Atorvastatin Calcium [Lipitor] 40 mg PO HS 01/27/20 [History] Escitalopram [Lexapro] 5 mg PO DAILY 07/25/20 [History] Furosemide [Lasix] 40 mg PO BID@0900,1600 #60 tab 08/25/20 [Rx] Metoprolol Tartrate [Lopressor] 50 mg PO BID #60 tab 08/25/20 [Rx] Spironolactone [Aldactone] 25 mg PO DAILY #30 tab 01/23/21 [Rx] lisinopriL [Zestril] 10 mg PO DAILY #30 tab 08/25/20 [Rx] Follow up Appointment(s)/Referral(s): Gary Jimenes MD [STAFF PHYSICIAN] - 1 Week Roel Lopez DO [Primary Care Provider] - 1-2 days Discharge Disposition: HOME SELF-CARE
== END 2020-08-25 16:53 | disposition home or self-care (01) | DRG 308 ==
LOC: EC 11:46 → 3SCARD 13:47
PROVIDERS: ADMIT Family Medicine; ATTEND Family Medicine
DX: I48.19 Other persistent atrial fibrillation (principal); I50.23 Acute on chronic systolic (congestive) heart failure; I25.10 Atherosclerotic heart disease of native coronary artery without angina pectoris; J44.9 Chronic obstructive pulmonary disease, unspecified; E78.5 Hyperlipidemia, unspecified; N40.0 Benign prostatic hyperplasia without lower urinary tract symptoms; E78.00 Pure hypercholesterolemia, unspecified; H91.93 Unspecified hearing loss, bilateral; I08.3 Combined rheumatic disorders of mitral, aortic and tricuspid valves; I27.20 Pulmonary hypertension, unspecified; I11.0 Hypertensive heart disease with heart failure; E66.9 Obesity, unspecified; I49.3 Ventricular premature depolarization; D69.6 Thrombocytopenia, unspecified; G40.909 Epilepsy, unspecified, not intractable, without status epilepticus; Z79.01 Long term (current) use of anticoagulants; Z79.82 Long term (current) use of aspirin; Z79.899 Other long term (current) drug therapy; Z88.0 Allergy status to penicillin; I25.2 Old myocardial infarction; Z87.01 Personal history of pneumonia (recurrent); Z87.19 Personal history of other diseases of the digestive system; Z95.5 Presence of coronary angioplasty implant and graft; Z86.011 Personal history of benign neoplasm of the brain; Z98.890 Other specified postprocedural states; Z87.442 Personal history of urinary calculi; Z86.711 Personal history of pulmonary embolism; Z68.35 Body mass index [BMI] 35.0-35.9, adult; Z86.718 Personal history of other venous thrombosis and embolism; Z81.8 Family history of other mental and behavioral disorders
CPT/HCPCS: 36415; 71046; 80048; 80053; 83605; 83735; 83880; 84484; 85025; 85610; 85730; 93005; 93306; 96365; 96366; 96375; 96376; 99291

== ENCOUNTER 2020-11-24 22:26 | Emergency (ER) | payer MEDICARE, BC ==
[2020-11-24] MEDS ORDERED: SODIUM CHLORIDE 0.9% 500 ML 500 ML IV STA (22:29)
[2020-11-24] MEDS ORDERED: SODIUM CHLORIDE 0.9% 1,000 ML IV STA (22:29)
[2020-11-24 22:44] VITALS: RESP 18; TEMP 98.5
[2020-11-24] MEDS ORDERED: DILTIAZEM 5 MG/ML 5 ML VIAL IVP STA (23:02)
[2020-11-24] MEDS ORDERED: METOPROLOL TARTRATE 5 MG/5 ML VIAL IVP STA (23:02)
--- NOTE | 2020-11-24 23:02 | ED ---
Weakness HPI - General Chief complaint: Weakness Stated complaint: Afib Time Seen by Provider: 11/24/20 22:29 Source: EMS, RN notes reviewed, old records reviewed Mode of arrival: EMS - History of Present Illness Initial comments: This is a 85-year-old male DF for evaluation patient Dese for evaluation regards to not feeling well shortness of breath and some weakness heart rate feels out of control. She feels like his heart is severely elevated he does suffer from a short fibrillation with RVR. Patient is on it for evaluation and is taking all medications as prescribed. No recent travel history or sick contacts no fevers no cough congestion or chest pain no abdominal pain no nausea vomiting or diarrhea patient's brought in by EMS from home for dizziness MD Complaint: generalized weakness, lack of energy -: hour(s) Location: generalized Severity: moderate Severity scale (1-10): 5 Quality: constant Consistency: constant Improves with: none Worsens with: none Context: recent illness, history of similar Associated Symptoms: diaphoresis, nausea/vomiting, other (dizziness) - Related Data Home Medications Medication Instructions Recorded Confirmed Tamsulosin [Flomax] 0.4 mg PO DAILY 09/23/16 11/24/20 Phenytoin Sodium Extended 200 mg PO TID 11/21/17 11/24/20 [Dilantin] Escitalopram [Lexapro] 5 mg PO DAILY 07/25/20 11/24/20 Atorvastatin Calcium [Lipitor] 80 mg PO HS 11/24/20 11/24/20 Meclizine [Antivert] 25 mg PO DAILY PRN 11/24/20 11/24/20 Metoprolol Tartrate [Lopressor] 25 mg PO DAILY 11/24/20 11/24/20 Previous Rx's Medication Instructions Recorded Apixaban [Eliquis] 5 mg PO BID #60 tab 09/26/16 Isosorbide Mononitrate ER [Imdur] 30 mg PO DAILY #30 tab.er.24h 07/18/19 Allergies Allergy/AdvReac Type Severity Reaction Status Date / Time Penicillins Allergy Rash/Hives Verified 11/24/20 23:19 Review of Systems ROS Statement: Those systems with pertinent positive or pertinent negative responses have been documented in the HPI. ROS Other: All systems not noted in ROS Statement are negative. 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 Past trauma Past Anesthesia/Blood Transfusion Reactions: No Reported Reaction Date of Last Stent Placement:: 2014 Past Psychological History: No Psychological Hx Reported Smoking Status: Never smoker - Past Family History Mother Additional Family Medical History / Comment(s): Mother had mental health problems. Father Family Medical History: No Reported History General Exam General appearance: alert, in no apparent distress, anxious Head exam: Present: atraumatic, normocephalic, normal inspection Eye exam: Present: normal appearance, PERRL, EOMI. Absent: scleral icterus, conjunctival injection, periorbital swelling ENT exam: Present: normal exam, mucous membranes moist Neck exam: Present: normal inspection. Absent: tenderness, meningismus, lymphadenopathy Respiratory exam: Present: normal lung sounds bilaterally. Absent: respiratory distress, wheezes, rales, rhonchi, stridor Cardiovascular Exam: Present: tachycardia, irregular rhythm, normal heart sounds. Absent: systolic murmur, diastolic murmur, rubs, gallop, clicks GI/Abdominal exam: Present: soft, normal bowel sounds. Absent: distended, tenderness, guarding, rebound, rigid Extremities exam: Present: normal inspection, full ROM, normal capillary refill. Absent: tenderness, pedal edema, joint swelling, calf tenderness Back exam: Present: normal inspection Neurological exam: Present: alert, oriented X3, CN II-XII intact Psychiatric exam: Present: normal affect, normal mood Skin exam: Present: warm, dry, intact, normal color. Absent: rash Course Vital Signs 11/24/20 11/24/20 11/24/20 22:37 22:58 23:35 Temperature 98.5 F Pulse Rate 121 H 129 H Pulse Rate [ 121 H Balance Wheel Facer ] Respiratory 18 18 Rate Blood Pressure 145/93 130/100 O2 Sat by Pulse 98 98 Oximetry 11/24/20 11/25/20 11/25/20 23:42 00:00 00:45 Temperature Pulse Rate 100 96 85 Pulse Rate [ Balance Wheel Facer ] Respiratory 18 18 18 Rate Blood Pressure 114/93 131/83 124/75 O2 Sat by Pulse 98 97 97 Oximetry 11/25/20 11/25/20 11/25/20 01:00 01:57 02:16 Temperature Pulse Rate 82 118 H 98 Pulse Rate [ Balance Wheel Facer ] Respiratory 18 18 18 Rate Blood Pressure 114/86 120/98 142/116 O2 Sat by Pulse 96 99 98 Oximetry 11/25/20 02:59 Temperature Pulse Rate 104 H Pulse Rate [ Balance Wheel Facer ] Respiratory 18 Rate Blood Pressure 121/95 O2 Sat by Pulse 96 Oximetry - Reevaluation(s) Reevaluation #1: Medical record is reviewed Patient symptoms are significantly improved here in the ER Patient informed results and questions answered Patient feels good for discharge home EKG Findings - EKG Comments: EKG Findings:: EKG is A. fib with RVR 121, QRS 88 QTc 482 Medical Decision Making - Medical Decision Making 85 male DEL with A. fib with RVR. A. fib with RVR is resolved here in the ER patient feels well prefers discharge home, patient can be discharged home - Lab Data Result diagrams: 11/24/20 22:45 11/24/20 22:45 Lab Results 11/24/20 11/24/20 11/24/20 Range/Units 22:45 22:45 22:45 WBC 7.4 (3.8-10.6) k/uL RBC 3.89 L (4.30-5.90) m/uL Hgb 12.9 L (13.0-17.5) gm/dL Hct 36.1 L (39.0-53.0) % MCV 93.0 (80.0-100.0) fL MCH 33.1 (25.0-35.0) pg MCHC 35.7 (31.0-37.0) g/dL RDW 14.5 (11.5-15.5) % Plt Count 131 L (150-450) k/uL MPV 7.5 Neutrophils % 76 % Lymphocytes % 16 % Monocytes % 5 % Eosinophils % 1 % Basophils % 0 % Neutrophils # 5.6 (1.3-7.7) k/uL Lymphocytes # 1.2 (1.0-4.8) k/uL Monocytes # 0.4 (0-1.0) k/uL Eosinophils # 0.1 (0-0.7) k/uL Basophils # 0.0 (0-0.2) k/uL PT 11.3 (9.0-12.0) sec INR 1.1 (<1.2) APTT 24.2 (22.0-30.0) sec Sodium 137 (137-145) mmol/L Potassium 4.1 (3.5-5.1) mmol/L Chloride 106 (98-107) mmol/L Carbon Dioxide 24 (22-30) mmol/L Anion Gap 7 mmol/L BUN 8 L (9-20) mg/dL Creatinine 0.58 L (0.66-1.25) mg/dL Est GFR (CKD-EPI)AfAm >90 (>60 ml/min/1.73 sqM) Est GFR (CKD-EPI)NonAf >90 (>60 ml/min/1.73 sqM) Glucose 176 H (74-99) mg/dL Calcium 8.5 (8.4-10.2) mg/dL Phosphorus 4.0 (2.5-4.5) mg/dL Magnesium 1.5 L (1.6-2.3) mg/dL Total Bilirubin 0.5 (0.2-1.3) mg/dL AST 23 (17-59) U/L ALT 18 (4-49) U/L Alkaline Phosphatase 144 H (38-126) U/L Creatine Kinase 48 L (55-170) U/L Troponin I (0.000-0.034) ng/mL NT-Pro-B Natriuret Pep pg/mL Total Protein 6.5 (6.3-8.2) g/dL Albumin 4.0 (3.5-5.0) g/dL Urine Color Urine Appearance (Clear) Urine pH (5.0-8.0) Ur Specific [place] (1.001-1.035) Urine Protein (Negative) Urine Glucose (UA) (Negative) Urine Ketones (Negative) Urine Blood (Negative) Urine Nitrite (Negative) Urine Bilirubin (Negative) Urine Urobilinogen (<2.0) mg/dL Ur Leukocyte Esterase (Negative) 11/24/20 11/24/20 11/24/20 Range/Units 22:45 22:45 23:30 WBC (3.8-10.6) k/uL RBC (4.30-5.90) m/uL Hgb (13.0-17.5) gm/dL Hct (39.0-53.0) % MCV (80.0-100.0) fL MCH (25.0-35.0) pg MCHC (31.0-37.0) g/dL RDW (11.5-15.5) % Plt Count (150-450) k/uL MPV Neutrophils % % Lymphocytes % % Monocytes % % Eosinophils % % Basophils % % Neutrophils # (1.3-7.7) k/uL Lymphocytes # (1.0-4.8) k/uL Monocytes # (0-1.0) k/uL Eosinophils # (0-0.7) k/uL Basophils # (0-0.2) k/uL PT (9.0-12.0) sec INR (<1.2) APTT (22.0-30.0) sec Sodium (137-145) mmol/L Potassium (3.5-5.1) mmol/L Chloride (98-107) mmol/L Carbon Dioxide (22-30) mmol/L Anion Gap mmol/L BUN (9-20) mg/dL Creatinine (0.66-1.25) mg/dL Est GFR (CKD-EPI)AfAm (>60 ml/min/1.73 sqM) Est GFR (CKD-EPI)NonAf (>60 ml/min/1.73 sqM) Glucose (74-99) mg/dL Calcium (8.4-10.2) mg/dL Phosphorus (2.5-4.5) mg/dL Magnesium (1.6-2.3) mg/dL Total Bilirubin (0.2-1.3) mg/dL AST (17-59) U/L ALT (4-49) U/L Alkaline Phosphatase (38-126) U/L Creatine Kinase (55-170) U/L Troponin I <0.012 (0.000-0.034) ng/mL NT-Pro-B Natriuret Pep 1960 pg/mL Total Protein (6.3-8.2) g/dL Albumin (3.5-5.0) g/dL Urine Color Yellow Urine Appearance Clear (Clear) Urine pH 5.5 (5.0-8.0) Ur Specific [place] 1.010 (1.001-1.035) Urine Protein Negative (Negative) Urine Glucose (UA) Negative (Negative) Urine Ketones Negative (Negative) Urine Blood Negative (Negative) Urine Nitrite Negative (Negative) Urine Bilirubin Negative (Negative) Urine Urobilinogen <2.0 (<2.0) mg/dL Ur Leukocyte Esterase Negative (Negative) Disposition Clinical Impression: Atrial fibrillation with RVR, Atrial fibrillation Disposition: HOME SELF-CARE Condition: Good Instructions (If sedation given, give patient instructions): A-fib (Atrial Fibrillation) (ED) Is patient prescribed a controlled substance at d/c from ED?: No Referrals: Roel Lopez DO [Primary Care Provider] - 1-2 days
[2020-11-24 23:04] LABS: Basophils % (A) 0 %; Eosinophils # (A) 0.1 k/uL (0-0.7); Eosinophils % (A) 1 %; HCT 36.1 % (39.0-53.0); HGB 12.9 gm/dL (13.0-17.5); Lymphocytes # (A) 1.2 k/uL (1.0-4.8); Lymphocytes % (A) 16 %; MCH 33.1 pg (25.0-35.0); MCHC 35.7 g/dL (31.0-37.0); Mean Platelet Volume 7.5; Monocytes # (A) 0.4 k/uL (0-1.0); Monocytes % (A) 5 %; Neutrophils # (A) 5.6 k/uL (1.3-7.7); Neutrophils % (A) 76 %; Platelet Count 131 k/uL (150-450); RBC 3.89 m/uL (4.30-5.90); RDW 14.5 % (11.5-15.5); WBC 7.4 k/uL (3.8-10.6)
[2020-11-24 23:15] LABS: ALT 18 U/L (4-49); AST 23 U/L (17-59); African American GFR (CKD) >90 (>60 ml/min/1.73 sqM); Alkaline Phosphatase 144 U/L (38-126); Anion Gap 7 mmol/L; Blood Urea Nitrogen 8 mg/dL (9-20); Calcium 8.5 mg/dL (8.4-10.2); Carbon Dioxide 24 mmol/L (22-30); Chloride 106 mmol/L (98-107); Creatine Kinase 48 U/L (55-170); Glucose 176 mg/dL (74-99); Magnesium 1.5 mg/dL (1.6-2.3); Non-African American GFR(CKD) >90 (>60 ml/min/1.73 sqM); Potassium 4.1 mmol/L (3.5-5.1); Sodium 137 mmol/L (137-145); Total Bilirubin 0.5 mg/dL (0.2-1.3); Total Protein 6.5 g/dL (6.3-8.2)
[2020-11-24 23:20] LABS: INR 1.1 (<1.2); Partial Thromboplastin Time 24.2 sec (22.0-30.0); Prothrombin Time 11.3 sec (9.0-12.0)
[2020-11-24 23:57] LABS: Appearance,Urine Clear (Clear); Color,Urine Yellow; PH, Urine 5.5 (5.0-8.0); Protein,Urine Negative (Negative)
[2020-11-24 23:58] LABS: Bilirubin,Urine Negative (Negative); Blood,Urine Negative (Negative); Glucose,Urine (UA) Negative (Negative); Ketones,Urine Negative (Negative); Leukocyte Esterase,Urine Negative (Negative); Nitrite,Urine Negative (Negative); Urobilinogen,Urine <2.0 mg/dL (<2.0)
[2020-11-25] MEDS ORDERED: METOPROLOL TARTRATE 5 MG/5 ML VIAL IVP STA (01:58)
[2020-11-25 03:01] VITALS: BP 121/95; PULSE 104
== END 2020-11-25 03:00 | disposition home or self-care (01) ==
LOC: EC 22:26
DX: I48.91 Unspecified atrial fibrillation (principal); I25.10 Atherosclerotic heart disease of native coronary artery without angina pectoris; J44.9 Chronic obstructive pulmonary disease, unspecified; I10 Essential (primary) hypertension; E78.5 Hyperlipidemia, unspecified; I25.2 Old myocardial infarction; G40.909 Epilepsy, unspecified, not intractable, without status epilepticus; Z79.899 Other long term (current) drug therapy; Z88.0 Allergy status to penicillin; Z95.5 Presence of coronary angioplasty implant and graft
CPT/HCPCS: 36415; 80053; 81003; 82550; 83735; 83880; 84100; 84484; 85025; 85610; 85730; 93005; 96361; 96374; 96375; 96376; 99285

== ENCOUNTER → 2021-02-21 | Outpatient (CLI) | payer MEDICARE, BC ==
[2021-02-21 16:06] LABS: African American GFR (CKD) >90 (>60 ml/min/1.73 sqM); Blood Urea Nitrogen 9 mg/dL (9-20); Non-African American GFR(CKD) >90 (>60 ml/min/1.73 sqM)
--- NOTE | 2021-02-22 18:33 | CT ---
EXAMINATION TYPE: CT abdomen pelvis w con DATE OF EXAM: 02/21/2021 COMPARISON: 07/09/2019 INDICATION: left inguinal hernia DLP: 2298 mGycm, Automated exposure control for dose reduction was used. CONTRAST: 100 mL of Isovue 300. Study performed with Oral Contrast TECHNIQUE: Axial images were obtained from above the diaphragm to the pubic rami in the axial plane a t 5 mm thick sections. Reconstructed images are reviewed on the computer in the coronal plane. FINDINGS: Limited CT sections are obtained the lung bases. The lung bases are clear. There may be borderline cardiomegaly. CT ABDOMEN: There is an anterior abdominal wall hernia in the periumbilical region measuring 2.3 cm w ivan. No loops of bowel are involved. Liver: Normal Spleen: Normal Pancreas: Atrophic Adrenal glands: The adrenal glands are normal. Gallbladder: Normal Kidneys: No masses are evident. No hydronephrosis is present. Small cortical renal cysts are presen t bilaterally. Delayed images were obtained through the kidneys, which remain unremarkable. Aorta: Normal Inferior vena cava: Normal. CT PELVIS: No left inguinal hernia is evident. Loops of bowel within the abdomen and pelvis are normal. There are loops of bowel which are incom pletely distended or lack oral contrast limiting their evaluation. Appendix: Normal as visualized. Urinary bladder: Normal. Genitourinary structures: Prostate is prominent Osseous structures: No suspicious lytic or sclerotic lesions. Degenerative joint changes at the bilat eral hips. Sacroiliac joint degenerative changes are present. Facet hypertrophy is within the lumbar spine. IMPRESSIONS: 1. No left inguinal hernia. 2. Anterior abdominal hernia containing mesenteric fat. 3. Bilateral renal cysts
== END | disposition home or self-care (01) ==
LOC: RADCTMAIN 14:56
PROVIDERS: ATTEND Surgery
DX: K46.9 Unspecified abdominal hernia without obstruction or gangrene (principal); N28.1 Cyst of kidney, acquired
CPT/HCPCS: 82565; 84520; 74177; 36415; Q9967

== ENCOUNTER 2021-04-10 13:36 | Emergency (ER) | payer MEDICARE, BC ==
[2021-04-10 13:50] VITALS: TEMP 98.1
[2021-04-10] MEDS ORDERED: KETOROLAC 15 MG/ML 1 ML VIAL IVP STA (13:59)
[2021-04-10] MEDS ORDERED: MORPHINE SULFATE 2 MG/ML SYRINGE IVP STA (13:59)
--- NOTE | 2021-04-10 14:02 | ED ---
General Adult HPI - General Chief complaint: Fall Stated complaint: Fall Time Seen by Provider: 04/10/21 13:50 Source: patient, EMS, RN notes reviewed, old records reviewed Mode of arrival: EMS Limitations: no limitations - History of Present Illness Initial comments: This is an 86-year-old male who presents emergency Department complaining of left lateral rib pain. Patient states he fell 2 days ago and hit the bedpost on his bed. Patient states ever since and the pain is gotten considerably worsening time he moves or coughs or takes a deep breaths pain is worse per patient denies shortness of breath chest complains of pain with breathing. Patient denies any anterior chest pain. Patient states she does have a history of atrial fibrillation. Patient denies any recent fever chills or cough. Patient denies any back pain or abdominal pain. Patient denies any trauma pain. Patient denies any head or neck. - Related Data Home Medications Medication Instructions Recorded Confirmed Tamsulosin [Flomax] 0.4 mg PO DAILY 09/23/16 04/10/21 Phenytoin Sodium Extended 300 mg PO BID 11/21/17 04/10/21 [Dilantin] Escitalopram [Lexapro] 5 mg PO DAILY 07/25/20 04/10/21 Atorvastatin Calcium [Lipitor] 80 mg PO HS 11/24/20 04/10/21 Metoprolol Tartrate [Lopressor] 25 mg PO DAILY 11/24/20 04/10/21 Nystatin 100,000 Unit/gm Powd 1 applic TOPICAL BID PRN 04/10/21 04/10/21 [Mycostatin Powder] Previous Rx's Medication Instructions Recorded Apixaban [Eliquis] 5 mg PO BID #60 tab 09/26/16 Isosorbide Mononitrate ER [Imdur] 30 mg PO DAILY #30 tab.er.24h 07/18/19 Ketorolac [Toradol] 10 mg PO Q6HR #15 tab 04/10/21 Allergies Allergy/AdvReac Type Severity Reaction Status Date / Time Penicillins Allergy Rash/Hives Verified 04/10/21 14:50 Review of Systems ROS Statement: Those systems with pertinent positive or pertinent negative responses have been documented in the HPI. ROS Other: All systems not noted in ROS Statement are negative. 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 Past trauma Past Anesthesia/Blood Transfusion Reactions: No Reported Reaction Date of Last Stent Placement:: 2014 Past Psychological History: No Psychological Hx Reported Smoking Status: Never smoker Past Alcohol Use History: None Reported Past Drug Use History: None Reported - Past Family History Mother Additional Family Medical History / Comment(s): Mother had mental health problems. Father Family Medical History: No Reported History General Exam - General Exam Comments Initial Comments: GENERAL: Patient is well-developed and well-nourished. Patient is nontoxic and well- hydrated and is in mild distress. ENT: Neck is soft and supple. No significant lymphadenopathy is noted. Oropharynx is clear. Moist mucous membranes. Neck has full range of motion without eliciting any pain. EYES: The sclera were anicteric and conjunctiva were pink and moist. Extraocular movements were intact and pupils were equal round and reactive to light. Eyelids were unremarkable. PULMONARY: Unlabored respirations. Good breath sounds bilaterally. No audible rales rhonchi or wheezing was noted. CARDIOVASCULAR: There is a regular rate and rhythm without any murmurs gallops or rubs. Patient has significant palpable tenderness on the left lower lateral rib cage around ribs 10 through 8 ABDOMEN: Soft and nontender with normal bowel sounds. SKIN: Skin is clear with no lesions or rashes and otherwise unremarkable. NEUROLOGIC: Patient is alert and oriented x3. Cranial nerves II through XII are grossly intact. Motor and sensory are also intact. Normal speech, volume and content. Symmetrical smile. MUSCULOSKELETAL: Normal extremities with adequate strength and full range of motion. No lower extremity swelling or edema. No calf tenderness. LYMPHATICS: No significant lymphadenopathy is noted PSYCHIATRIC: Normal psychiatric evaluation. Limitations: no limitations Course Vital Signs 04/10/21 04/10/21 13:46 15:35 Temperature 98.1 F Pulse Rate 114 H 111 H Respiratory 20 18 Rate Blood Pressure 138/96 134/109 O2 Sat by Pulse 98 96 Oximetry Medical Decision Making - Medical Decision Making EKG shows atrial fibrillation with rapid ventricular response at 100 and 8H per minute QRS is 92 QT interval 354 QTC is 474 beats EKG shows no ST segment elevation or depression. Chest x-ray shows atelectasis versus pneumonia. Patient has no pneumonia like symptoms. Patient received Toradol and 2 morphine in the emergency department and improved his pain significantly. I spoke with Dr. John Gómez dental follow-up either tomorrow or Thursday. Patient was in agreement with this follow-up plan. Disposition Clinical Impression: Chest wall contusion Disposition: HOME SELF-CARE Condition: Good Instructions (If sedation given, give patient instructions): Chest Wall Pain (ED), Fall Prevention (ED) Prescriptions: Ketorolac [Toradol] 10 mg PO Q6HR #15 tab Is patient prescribed a controlled substance at d/c from ED?: No Referrals: Roel Lopez DO [Primary Care Provider] - 1-2 days Time of Disposition: 16:20
--- NOTE | 2021-04-10 15:07 | XR ---
EXAMINATION TYPE: XR chest 2V DATE RECEIVED ON: 04/10/2021 DATE PERFORMED: 04/10/2021 COMPARISON: 08/23/2020 HISTORY: Difficulty breathing, left-sided chest pain after fall TECHNIQUE: Frontal and lateral views of the chest are obtained. FINDINGS: There is moderate cardiomegaly. The pulmonary vasculature is normal. There may be a mild left lower lobe infiltrate near the costophrenic angle. Lungs otherwise appear clear. IMPRESSION: 1. Cardiomegaly. 2. Clinical correlation recommended for left lower lobe atelectasis or pneumonia.
[2021-04-10 15:38] VITALS: RESP 18
[2021-04-10 16:22] VITALS: BP 140/80; PULSE 109
[2021-04-10] MEDS ORDERED: ACET/COD 300 MG/30 MG STARTER PACK 6 TAB BTL PO STA (16:22)
== END 2021-04-10 16:35 | disposition home or self-care (01) ==
LOC: EC 13:36
DX: S20.212A Contusion of left front wall of thorax, initial encounter (principal); I11.0 Hypertensive heart disease with heart failure; I25.10 Atherosclerotic heart disease of native coronary artery without angina pectoris; E78.5 Hyperlipidemia, unspecified; G40.909 Epilepsy, unspecified, not intractable, without status epilepticus; I25.2 Old myocardial infarction; I48.91 Unspecified atrial fibrillation; J44.9 Chronic obstructive pulmonary disease, unspecified; Z79.01 Long term (current) use of anticoagulants; Z79.1 Long term (current) use of non-steroidal anti-inflammatories (NSAID); Z79.899 Other long term (current) drug therapy; Z88.0 Allergy status to penicillin; W19.XXXA Unspecified fall, initial encounter
CPT/HCPCS: 71046; 99284; 96374; 96375; J2270; J1885

== ENCOUNTER 2021-04-16 09:51 | Emergency (ER) | payer MEDICARE, BC ==
[2021-04-16 10:17] VITALS: RESP 20; TEMP 97.8
[2021-04-16] MEDS ORDERED: IBUPROFEN 400 MG TAB PO STA (10:17)
--- NOTE | 2021-04-16 10:39 | ED ---
Neck Injury/Pain HPI - General Chief Complaint: Neck Pain/Injury Stated Complaint: neck pain Time Seen by Provider: 04/16/21 10:02 Limitations: no limitations - History of Present Illness Initial Comments: Patient is an 86-year-old male with muscle comorbidities, presenting to the emergency department via EMS with complaints of some right-sided neck pain that started this morning when he woke up. He states increases when he turns his neck to the left. He states the pain was very severe and seemed to take his breath away. He states right now he is not moving he does not feel it. When he pushes on it or "pinches the muscle" it does hurt worse. He did have a fall last week which she was seen here for. He has some bruising to his left ribs. He denies any chest pain or shortness of breath. He states when he does take in a deep breath it does hurt the left side of his ribs. No abdominal pain, no nausea or vomiting, no recent fevers or chills. He denies any pain in his extremities. He denies any lightheadedness or dizziness, no headache. He has no further complaints at this time. Upon arrival to the ER, his vitals are stable. - Related Data Home Medications Medication Instructions Recorded Confirmed Tamsulosin [Flomax] 0.4 mg PO DAILY 09/23/16 04/16/21 Phenytoin Sodium Extended 300 mg PO BID 11/21/17 04/16/21 [Dilantin] Escitalopram [Lexapro] 5 mg PO DAILY 07/25/20 04/16/21 Atorvastatin Calcium [Lipitor] 80 mg PO HS 11/24/20 04/16/21 Metoprolol Tartrate [Lopressor] 25 mg PO DAILY 11/24/20 04/16/21 Nystatin 100,000 Unit/gm Powd 1 applic TOPICAL BID PRN 04/10/21 04/16/21 [Mycostatin Powder] Previous Rx's Medication Instructions Recorded Apixaban [Eliquis] 5 mg PO BID #60 tab 09/26/16 Isosorbide Mononitrate ER [Imdur] 30 mg PO DAILY #30 tab.er.24h 07/18/19 Ketorolac [Toradol] 10 mg PO Q6HR #15 tab 04/10/21 Allergies Allergy/AdvReac Type Severity Reaction Status Date / Time Penicillins Allergy Rash/Hives Verified 04/16/21 11:45 Review of Systems ROS Statement: Those systems with pertinent positive or pertinent negative responses have been documented in the HPI. ROS Other: All systems not noted in ROS Statement are negative. 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 Past trauma Past Anesthesia/Blood Transfusion Reactions: No Reported Reaction Date of Last Stent Placement:: 2014 Past Psychological History: No Psychological Hx Reported Smoking Status: Never smoker Past Alcohol Use History: None Reported Past Drug Use History: None Reported - Past Family History Mother Additional Family Medical History / Comment(s): Mother had mental health problems. Father Family Medical History: No Reported History General Exam - General Exam Comments Initial Comments: GENERAL: Patient is well-developed and well-nourished. Patient is nontoxic and in no acute distress. HEAD: Atraumatic, normocephalic. No hematomas. EYES: Pupils equal round and reactive to light, extraocular movements intact, sclera anicteric, conjunctiva are normal. Eyelids were unremarkable. ENT: TMs normal, nares patent, oropharynx clear without exudates. Moist mucous membranes. NECK: Normal range of motion, although mild pain with rotation to the left. supple without lymphadenopathy or JVD. Pain with palpation along the right side of the neck consistent with muscle strain LUNGS: Unlabored respirations. Breath sounds clear to auscultation bilaterally and equal. No wheezes rales or rhonchi. HEART: Regular rate and rhythm without murmurs, rubs or gallops. ABDOMEN: Soft, nontender, normoactive bowel sounds. No guarding, no rebound. No masses appreciated. : Deferred MUSCULOSKELETAL: Normal extremities with adequate strength and normal range of motion, no pitting or edema. No clubbing or cyanosis. NEUROLOGICAL: Patient is alert and oriented x 3. Motor and sensory are also intact. Cranial nerves II through XII grossly intact. Symmetrical smile. Normal speech, normal gait. PSYCH: Normal mood, normal affect. SKIN: Warm, Dry, normal turgor, no rashes or lesions noted. Limitations: no limitations Course Vital Signs 04/16/21 04/16/21 10:06 11:30 Temperature 97.8 F Pulse Rate 91 104 H Respiratory 20 20 Rate Blood Pressure 139/99 145/100 O2 Sat by Pulse 96 95 Oximetry Medical Decision Making - Medical Decision Making Patient is an 86-year-old male with morbid days, presenting via EMS with complaints of right-sided neck pain started this morning when he woke up. Pain increases with rotation to the left and some to the right. He has pain along his lateral musculature. He did have a fall a few days ago, he still dealing with some left-sided rib pain. CT of the brain and C-spine showed no acute process at this time, chest x-ray is stable, there may be some nondisplaced rib fractures, he is sore and a bruise in this area. Patient's neck pain is most likely muscle skeletal in nature as it hurts to the touch, increases pain when he looks to the left or the right. I did give him ibuprofen for this as well as some hot packs. He does report improvement in his symptoms. He is stable for discharge. I will send him home with some ibuprofen for any further discomfort. He can also use hot packs to the area. He will follow up with his primary care if symptoms persist. Return parameters were discussed with him and he verbalized understanding. Case discussed with Dr. Brady. Disposition Clinical Impression: Strain of neck muscle, Rib pain on left side Disposition: HOME SELF-CARE Condition: Stable Instructions (If sedation given, give patient instructions): Cervical Strain (ED) Additional Instructions: Please return to the Emergency Department if symptoms worsen or any other concerns. Recommend taking ibuprofen for any discomfort, use hot packs to the neck as well. Please follow-up with your family doctor. Is patient prescribed a controlled substance at d/c from ED?: No Referrals: Roel Lopez DO [Primary Care Provider] - 1-2 days Time of Disposition: 12:03
--- NOTE | 2021-04-16 10:54 | CT ---
EXAMINATION TYPE: CT brain cspine wo con DATE OF EXAM: 04/16/2021 COMPARISON: CT brain 07/25/2020 HISTORY: Fall, neck pain, dizziness CT DLP: 1567.2 mGycm Automated exposure control for dose reduction was used. TECHNIQUE: CT scan of the head and cervical spine are performed without contrast. FINDINGS: There is no acute intracranial hemorrhage, mass effect, or midline shift identified. The ventricles and sulci are within normal limits in size. The globes are intact and the visualized sin uses are remarkable for inflammatory change in the right maxillary sinus. Focal lucency along the lat eral margin of the middle cranial fossa on the right is stable and may be congenital. There is a meta llic density at the level of the posterior left occipital region within the soft tissues as on prior exam with some local artifact. Cortical atrophy, periventricular white matter low-attenuation is agai n noted. There are basal ganglia calcifications as on prior, cerebral vascular calcifications, unchan ged. Cervical spine is visualized in its entirety from C1 through upper thoracic levels and demonstrates d egenerative disc changes, facet arthropathy without evidence of acute fracture or dislocation. There is an anterolisthesis grade 1 C2-3, retrolisthesis grade 1 C3-4, C4-5, multilevel spondylosis, loss o f disc height greatest at C3-4, C4-5, C5-6 and C6-7. There is a spinal curvature present. Prevertebra l soft tissue appears within normal limits. The C1-C2 articulation is unremarkable. Multilevel jean-claude inal encroachment is present. There is multilevel facet arthropathy. Aortic aneurysm is noted incidentally, proximal descending aorta measures approximately 3.8 cm, promi nence of pulmonary artery could be due to pulmonary artery hypertension. There is a subpleural nodula r density right upper lobe posterior laterally on axial image 113 measuring 6 to 7 mm, indeterminate. IMPRESSION: 1. There is no acute fracture or dislocation evident in the cervical spine. 2. No acute intracranial hemorrhage, mass effect, or midline shift is seen. 3. Thoracic aortic aneurysm, indeterminate subpleural pulmonary nodule, consider follow-up.
[2021-04-16 11:34] VITALS: BP 145/100; PULSE 104
[2021-04-16] MEDS ORDERED: IBUPROFEN 600 MG TAB PO STA (11:43)
--- NOTE | 2021-04-16 11:58 | XR ---
Chest x-ray with left RIBS HISTORY: Trauma and pain Frontal view of the chest, 4 views of left ribs, correlation to prior chest x-ray 04/10/2021 Aorta is dense and ectatic. No evident pneumothorax or pleural effusion. Bone mineralization is reduc ed which could limit sensitivity. Contour abnormality noted at the lower ribs laterally could represe nt fractures near the costochondral junctions. The heart is enlarged as on prior exam. There are radha facts noted in the midline. IMPRESSION: Findings may represent nondisplaced rib fractures, bone scan could be confirmatory.
[2021-04-16] MEDS ORDERED: IBUPROFEN 600 MG STARTER PACK 4 TAB BTL PO STA (12:03)
== END 2021-04-16 12:13 | disposition home or self-care (01) ==
LOC: EC 09:51
DX: S16.1XXA Strain of muscle, fascia and tendon at neck level, initial encounter (principal); R07.81 Pleurodynia; J44.9 Chronic obstructive pulmonary disease, unspecified; E78.5 Hyperlipidemia, unspecified; I10 Essential (primary) hypertension; I48.91 Unspecified atrial fibrillation; I25.10 Atherosclerotic heart disease of native coronary artery without angina pectoris; I25.2 Old myocardial infarction; G40.909 Epilepsy, unspecified, not intractable, without status epilepticus; Z88.0 Allergy status to penicillin; Z79.01 Long term (current) use of anticoagulants; W18.30XA Fall on same level, unspecified, initial encounter
CPT/HCPCS: 70450; 72125; 99284

== ENCOUNTER → 2022-01-06 | Outpatient (CLI) | payer MEDICARE, BC ==
[2022-01-06 08:09] LABS: African American GFR (CKD) >90 (>60 ml/min/1.73 sqM); Blood Urea Nitrogen 14 mg/dL (9-20); Non-African American GFR(CKD) >90 (>60 ml/min/1.73 sqM)
--- NOTE | 2022-01-06 11:55 | CT ---
EXAMINATION TYPE: CT abdomen pelvis w con DATE OF EXAM: 01/06/2022 COMPARISON: CT dated 02/21/2021 HISTORY: Diverticulitis CT DLP: 1817 mGycm Automated exposure control for dose reduction was used. TECHNIQUE: Helical acquisition of images was performed from the lung bases through the pelvis. CONTRAST: Performed with Oral Contrast and with IV Contrast, patient injected with 100 ml mL of Isovue 300. FINDINGS: LUNG BASES: Bilateral basal pulmonary atelectasis, reticulations and mild fibrotic changes. Cardiomeg anila. LIVER/GB: Surgical suture is seen at the gallbladder fossa. No radiodense biliary calculi. Nodular ou tline of the liver, please correlate with liver function tests and hepatic viral serology. No definit e hepatic focal lesion. PANCREAS: Atrophic SPLEEN: No significant abnormality is seen. ADRENALS: No significant abnormality is seen. KIDNEYS: 3 mm left lower pole renal calculus. Bilateral renal hypodensities, likely representing kaylee l cysts. Bilateral perinephric fat stranding, nonspecific. No hydroureter or hydronephrosis. FREE AIR: No free air is visualized. RETROPERITONEAL ADENOPATHY: None visualized REPRODUCTIVE ORGANS: Enlarged prostate, please correlate with PSA level. URINARY BLADDER: No significant abnormality is seen. PELVIC ADENOPATHY: No pathologically enlarged pelvic lymph nodes. OSSEOUS STRUCTURES: Osteopenia. Degenerative changes of the lower thoracic spine. BOWEL: Unremarkable nondistended stomach. Small duodenal diverticulum. Unremarkable small bowel. Sca ttered uncomplicated colonic diverticulosis. No convincing evidence of acute diverticulitis. Segments of mild colonic wall thickening, nonspecific. Recommend correlation with colonoscopy results. Normal appendix. OTHER: Arterial atherosclerotic calcifications. No sizable ascites. Fat-containing umbilical hernia. IMPRESSION: Colonic diverticulosis without evidence of acute diverticulitis. Other findings as described above.
== END | disposition home or self-care (01) ==
LOC: RADCTMAIN 07:08
PROVIDERS: ATTEND Surgery
DX: K57.30 Diverticulosis of large intestine without perforation or abscess without bleeding (principal); K42.9 Umbilical hernia without obstruction or gangrene; J98.11 Atelectasis; J84.10 Pulmonary fibrosis, unspecified; K86.89 Other specified diseases of pancreas; N20.0 Calculus of kidney; K57.10 Diverticulosis of small intestine without perforation or abscess without bleeding
CPT/HCPCS: 82565; 84520; 74177; 36415; Q9967

== ENCOUNTER 2022-01-11 07:37 | Emergency (ER) | payer MEDICARE, BC ==
--- NOTE | 2022-01-11 07:53 | ED ---
General Adult HPI - General Chief complaint: Fall Stated complaint: Fall Time Seen by Provider: 01/11/22 07:39 Source: patient Mode of arrival: EMS Limitations: no limitations - History of Present Illness Initial comments: Dictation was produced using [employer] dictation software. please excuse any grammatical, word or spelling errors. Chief Complaint: 86-year-old male presents emergency Department after fall History of Present Illness: Is an 86-year-old male who presents to emergency department after fall. History received from EMS. Patient is an unreliable historian. Patient allegedly fell yesterday. He is no details of how the patient fell and how he was discovered. EMS reports that they were called by patient's grandson. Patient complains of left knee pain. Patient is rambling speech. Simply with patient's baseline mental status. He has a lot of comorbidities. He is allegedly a pelvic was for treatment of atrial fibrillation. Patient states that he is worried that he broke his left knee. He reports that he is nothing more than an 86-year-old male that just fell down The ROS documented in this emergency department record has been reviewed and confirmed by me. Those systems with pertinent positive or negative responses have been documented in the HPI. All other systems are other negative and/or noncontributory. PHYSICAL EXAM: General Impression: Alert and oriented x3, not in acute distress HEENT: Normocephalic atraumatic, extra-ocular movements intact, pupils equal and reactive to light bilaterally, mucous membranes moist. Cardiovascular: Heart regular rate and rhythm Chest: Able to complete full sentences, no retractions, no tachypnea Abdomen: abdomen soft, non-tender, non-distended, no organomegaly Musculoskeletal: Pulses present and equal in all extremities, no peripheral edema, palpatory tenderness to the left knee with overlying abrasion Motor: no focal deficits noted Neurological: CN II-XII grossly intact, no focal motor or sensory deficits noted Skin: Intact with no visualized rashes Psych: Rambling speech ED course: 86-year-old male presents to the emergency department after fall. There are no clear details of the fall. Gomez patient suffered a mechanical fall versus a syncopal fall. She does multiple comorbidities. All signs upon arrival are within acceptable limits. Patient does not have any gross deformities to his physical examination. Laboratory evaluation shows no acute processes. EKG interpretation: Ventricular rate 98, A. fib, QRS 104, QTC 400. No NE prolongation, no QTC prolongation, no ST or T-wave changes noted. EKG compared to 04/10/2021 showing no changes. Overall, this EKG is unremarkable Laboratory evaluation obtained. CBC unremarkable. Coag panel is negative. Metabolic panel is within acceptable limits. Computed tomography scan of the head and C-spine shows no acute processes. Pelvis x-rays negative. Bilateral knee x-rays negative. Chest x-ray suggests mild CHF. Patient does not have any respiratory symptoms. Patient does not appear to be dyspneic or have any respiratory issues. Patient observed in emergency department for approximately 1 hour 30 minutes. Patient reevaluated bedside found a stable medical condition. Patient is in no acute distress. Spoke with patient's son and patient's grandson over the phone reports that patient fell yesterday afternoon. He was trying to walk out the door when he lost his balance and fell forward. Patient at baseline is mildly confused. It is normal for patient to have tangential speech. Patient be discharged. - Related Data Home Medications Medication Instructions Recorded Confirmed Tamsulosin [Flomax] 0.4 mg PO DAILY 09/23/16 04/16/21 Phenytoin Sodium Extended 300 mg PO BID 11/21/17 04/16/21 [Dilantin] Escitalopram [Lexapro] 5 mg PO DAILY 07/25/20 04/16/21 Atorvastatin Calcium [Lipitor] 80 mg PO HS 11/24/20 04/16/21 Metoprolol Tartrate [Lopressor] 25 mg PO DAILY 11/24/20 04/16/21 Nystatin 100,000 Unit/gm Powd 1 applic TOPICAL BID PRN 04/10/21 04/16/21 [Mycostatin Powder] Previous Rx's Medication Instructions Recorded Apixaban [Eliquis] 5 mg PO BID #60 tab 09/26/16 Isosorbide Mononitrate ER [Imdur] 30 mg PO DAILY #30 tab.er.24h 07/18/19 Ketorolac [Toradol] 10 mg PO Q6HR #15 tab 04/10/21 Allergies Allergy/AdvReac Type Severity Reaction Status Date / Time Penicillins Allergy Rash/Hives Verified 01/11/22 07:45 Review of Systems ROS Statement: Those systems with pertinent positive or pertinent negative responses have been documented in the HPI. ROS Other: All systems not noted in ROS Statement are negative. 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 Past trauma Past Anesthesia/Blood Transfusion Reactions: No Reported Reaction Date of Last Stent Placement:: 2014 Past Psychological History: No Psychological Hx Reported Smoking Status: Never smoker Past Alcohol Use History: None Reported Past Drug Use History: None Reported - Past Family History Mother Additional Family Medical History / Comment(s): Mother had mental health problems. Father Family Medical History: No Reported History General Exam Limitations: no limitations Course Vital Signs 01/11/22 07:40 Temperature 98.4 F Pulse Rate 102 H Respiratory 20 Rate Blood Pressure 158/109 O2 Sat by Pulse 96 Oximetry Medical Decision Making - Lab Data Result diagrams: 01/11/22 07:58 01/11/22 07:58 Lab Results 01/11/22 01/11/22 01/11/22 Range/Units 07:58 07:58 07:58 WBC 8.1 (3.8-10.6) k/uL RBC 3.95 L (4.30-5.90) m/uL Hgb 12.9 L (13.0-17.5) gm/dL Hct 37.5 L (39.0-53.0) % MCV 94.9 (80.0-100.0) fL MCH 32.6 (25.0-35.0) pg MCHC 34.4 (31.0-37.0) g/dL RDW 14.7 (11.5-15.5) % Plt Count 147 L (150-450) k/uL MPV 7.5 Neutrophils % 79 % Lymphocytes % 14 % Monocytes % 5 % Eosinophils % 1 % Basophils % 0 % Neutrophils # 6.5 (1.3-7.7) k/uL Lymphocytes # 1.1 (1.0-4.8) k/uL Monocytes # 0.4 (0-1.0) k/uL Eosinophils # 0.1 (0-0.7) k/uL Basophils # 0.0 (0-0.2) k/uL PT 10.7 (9.0-12.0) sec INR 1.0 (<1.2) APTT 18.7 L (22.0-30.0) sec Sodium 142 (137-145) mmol/L Potassium 3.7 (3.5-5.1) mmol/L Chloride 109 H (98-107) mmol/L Carbon Dioxide 24 (22-30) mmol/L Anion Gap 9 mmol/L BUN 14 (9-20) mg/dL Creatinine 0.54 L (0.66-1.25) mg/dL Est GFR (CKD-EPI)AfAm >90 (>60 ml/min/1.73 sqM) Est GFR (CKD-EPI)NonAf >90 (>60 ml/min/1.73 sqM) Glucose 174 H (74-99) mg/dL Calcium 8.2 L (8.4-10.2) mg/dL Magnesium 1.6 (1.6-2.3) mg/dL Creatine Kinase 78 (55-170) U/L Disposition Clinical Impression: Fall, Knee contusion Disposition: HOME SELF-CARE Condition: Good Instructions (If sedation given, give patient instructions): Fall Prevention for Older Adults (ED) Is patient prescribed a controlled substance at d/c from ED?: No Referrals: Reol Lopez DO [Primary Care Provider] - 1-2 days Time of Disposition: 09:08
[2022-01-11 08:16] LABS: Basophils % (A) 0 %; Eosinophils # (A) 0.1 k/uL (0-0.7); Eosinophils % (A) 1 %; HCT 37.5 % (39.0-53.0); HGB 12.9 gm/dL (13.0-17.5); Lymphocytes # (A) 1.1 k/uL (1.0-4.8); Lymphocytes % (A) 14 %; MCH 32.6 pg (25.0-35.0); MCHC 34.4 g/dL (31.0-37.0); MCV 94.9 fL (80.0-100.0); Mean Platelet Volume 7.5; Monocytes # (A) 0.4 k/uL (0-1.0); Monocytes % (A) 5 %; Neutrophils # (A) 6.5 k/uL (1.3-7.7); Neutrophils % (A) 79 %; Platelet Count 147 k/uL (150-450); RBC 3.95 m/uL (4.30-5.90); RDW 14.7 % (11.5-15.5); WBC 8.1 k/uL (3.8-10.6)
[2022-01-11 08:19] LABS: Prothrombin Time 10.7 sec (9.0-12.0)
[2022-01-11 08:23] LABS: African American GFR (CKD) >90 (>60 ml/min/1.73 sqM); Anion Gap 9 mmol/L; Blood Urea Nitrogen 14 mg/dL (9-20); Calcium 8.2 mg/dL (8.4-10.2); Carbon Dioxide 24 mmol/L (22-30); Chloride 109 mmol/L (98-107); Creatine Kinase 78 U/L (55-170); Glucose 174 mg/dL (74-99); Magnesium 1.6 mg/dL (1.6-2.3); Non-African American GFR(CKD) >90 (>60 ml/min/1.73 sqM); Potassium 3.7 mmol/L (3.5-5.1); Sodium 142 mmol/L (137-145)
--- NOTE | 2022-01-11 08:41 | CT ---
EXAMINATION TYPE: CT brain blade huertas DATE OF EXAM: 01/11/2022 COMPARISON: 04/16/2021 HISTORY: Fall CT DLP: 1696.5 mGycm Automated exposure control for dose reduction was used. TECHNIQUE: CT scan of the head and cervical spine are performed without contrast. FINDINGS: Head CT: The ventricles, basal cisterns and sulci over the convexities are within normal limits for the patien t's age. There is no mass effect or shift of midline structures. There is mild basal ganglial calcifi cation. There is no acute intra or extra-axial hemorrhage. The calvarium is intact. There are moderate chronic inflammatory change in the right maxillary sinus and mild chronic inflammatory change in left maxillary sinus. The mastoid air cells are well aerated. CT cervical spine: There is no acute fracture. The craniovertebral junction relationships and prevertebral soft tissues are normal. There is a slight anterolisthesis of C2 on C3 and retrolisthesis of C3 and C4. There is marked degene rative disc disease at C3-4, C4-5 and C5-6 levels and mild degenerative disc disease at the C6-7 leve ls. There is no bony compromise of the cervical spinal canal There is mild multilevel degenerative change of the facet joints and uncovertebral joints. There is s evere multilevel bony neural foraminal encroachment right greater than left. IMPRESSION: 1. Head CT: No acute bleed or mass effect. 2. CT cervical spine: Marked degenerative changes but no acute trauma.
[2022-01-11 08:43] LABS: Partial Thromboplastin Time 18.7 sec (22.0-30.0)
--- NOTE | 2022-01-11 08:48 | XR ---
Pelvis. HISTORY: Fall. COMPARISON: None. TECHNIQUE: 2 views of pelvis were obtained. FINDINGS: The pelvis is intact without fracture or focal intraosseous abnormality. The SI joints and pubic symp hysis are normal. There is moderate degenerative change of the hips bilaterally. IMPRESSION: No evidence of acute trauma.
--- NOTE | 2022-01-11 08:50 | XR ---
Bilateral knees. HISTORY: Trauma. COMPARISON: None. TECHNIQUE: 10 views right left knee were obtained. FINDINGS: There is no fracture, dislocation or focal intraosseous abnormalities. There is a small to moderate left joint effusion. There is no right joint effusion. There is moderate joint space narrowing of the medial compartments of both knees indicating mild oste oarthritic change. IMPRESSION: 1. Small to moderate left joint effusion. 2. Degenerative changes of the medial compartments of both knees. 3. No fracture or dislocation
--- NOTE | 2022-01-11 08:52 | XR ---
EXAMINATION TYPE: XR chest 2V DATE OF EXAM: 01/11/2022 COMPARISON: 04/10/2021 HISTORY: Difficulty breathing TECHNIQUE: Frontal and lateral views of the chest are obtained. FINDINGS: There is moderate to marked cardiomegaly and mild to moderate pulmonary vascular congestio n. There is no pneumothorax or pleural effusion. There is no airspace consolidation. The osseous structures are grossly intact. IMPRESSION: Findings most consistent with mild CHF. Clinical correlation recommended.
[2022-01-11 09:20] VITALS: BP 134/97; PULSE 106; RESP 16; TEMP 98.1
== END 2022-01-11 09:46 | disposition home or self-care (01) ==
LOC: EC 07:37
DX: S80.02XA Contusion of left knee, initial encounter (principal); E78.5 Hyperlipidemia, unspecified; I10 Essential (primary) hypertension; I25.10 Atherosclerotic heart disease of native coronary artery without angina pectoris; I25.2 Old myocardial infarction; I48.91 Unspecified atrial fibrillation; J44.9 Chronic obstructive pulmonary disease, unspecified; Z88.0 Allergy status to penicillin; Z79.899 Other long term (current) drug therapy; W19.XXXA Unspecified fall, initial encounter
CPT/HCPCS: 36415; 70450; 71046; 72125; 72170; 80048; 82550; 83735; 85025; 85610; 85730; 93005; 99285

== ENCOUNTER 2022-01-13 10:32 | Inpatient (IN) | payer MEDICARE, BC ==
[2022-01-13 11:31] LABS: Basophils # (A) 0.1 k/uL (0-0.2); Basophils % (A) 1 %; Eosinophils # (A) 0.1 k/uL (0-0.7); Eosinophils % (A) 2 %; HCT 37.8 % (39.0-53.0); HGB 12.5 gm/dL (13.0-17.5); Lymphocytes # (A) 1.7 k/uL (1.0-4.8); Lymphocytes % (A) 24 %; MCH 31.5 pg (25.0-35.0); MCV 95.3 fL (80.0-100.0); Mean Platelet Volume 7.9; Monocytes # (A) 0.4 k/uL (0-1.0); Monocytes % (A) 5 %; Neutrophils # (A) 4.8 k/uL (1.3-7.7); Neutrophils % (A) 67 %; Platelet Count 146 k/uL (150-450); RBC 3.96 m/uL (4.30-5.90); RDW 14.2 % (11.5-15.5); WBC 7.2 k/uL (3.8-10.6)
--- NOTE | 2022-01-13 11:31 | XR ---
EXAMINATION TYPE: XR chest 2V DATE OF EXAM: 01/13/2022 COMPARISON: X-ray dated 01/11/2022 HISTORY: Chest pain TECHNIQUE: Frontal and lateral views of the chest are obtained. FINDINGS: Persistent signs of pulmonary edema/CHF, please correlate clinically. No progressive pulmonary consol idation. No sizable pleural effusion or definite pneumothorax. Persistent increased cardiac transverse diamete r. Unchanged bony thoracic cage. IMPRESSION: As above.
--- NOTE | 2022-01-13 11:36 | ED ---
General Adult HPI - General Chief complaint: Fall Stated complaint: lt knee pain Time Seen by Provider: 01/13/22 10:35 Source: patient, EMS, RN notes reviewed, old records reviewed Mode of arrival: EMS Limitations: no limitations - History of Present Illness Initial comments: This is an 86-year-old male presents emergency department for left knee pain. Patient states he fell 4 days ago was evaluated the emergency department however the pain is gotten worse swelling is worse and now radiates from his leg past his knee into his thigh. Patient states the swelling is also into his thigh. Patient denies any recent injury. Patient denies head pain. Patient denies any fever chills or cough. - Related Data Home Medications Medication Instructions Recorded Confirmed Tamsulosin [Flomax] 0.4 mg PO DAILY 09/23/16 01/13/22 Phenytoin Sodium Extended 200 mg PO TID 11/21/17 04/16/21 [Dilantin] Escitalopram [Lexapro] 5 mg PO DAILY 07/25/20 01/13/22 Metoprolol Tartrate [Lopressor] 25 mg PO DAILY 11/24/20 01/13/22 Donepezil [Aricept] 5 mg PO HS 01/13/22 01/13/22 Gabapentin [Neurontin] 200 mg PO TID 01/13/22 01/13/22 Previous Rx's Medication Instructions Recorded Apixaban [Eliquis] 5 mg PO BID #60 tab 09/26/16 Isosorbide Mononitrate ER [Imdur] 30 mg PO DAILY #30 tab.er.24h 07/18/19 Allergies Allergy/AdvReac Type Severity Reaction Status Date / Time Penicillins Allergy Rash/Hives Verified 01/13/22 13:36 Review of Systems ROS Statement: Those systems with pertinent positive or pertinent negative responses have been documented in the HPI. ROS Other: All systems not noted in ROS Statement are negative. 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 Past trauma Past Anesthesia/Blood Transfusion Reactions: No Reported Reaction Date of Last Stent Placement:: 2014 Past Psychological History: No Psychological Hx Reported Smoking Status: Never smoker Past Alcohol Use History: None Reported Past Drug Use History: None Reported - Past Family History Mother Additional Family Medical History / Comment(s): Mother had mental health problems. Father Family Medical History: No Reported History General Exam - General Exam Comments Initial Comments: GENERAL: Patient is well-developed and well-nourished. Patient is nontoxic and well- hydrated and is in moderate distress. ENT: Neck is soft and supple. No significant lymphadenopathy is noted. Oropharynx is clear. Moist mucous membranes. Neck has full range of motion without eliciting any pain. EYES: The sclera were anicteric and conjunctiva were pink and moist. Extraocular movements were intact and pupils were equal round and reactive to light. Eyelids were unremarkable. PULMONARY: Unlabored respirations. Good breath sounds bilaterally. No audible rales r honchi or wheezing was noted. CARDIOVASCULAR: There is a regular rate and rhythm without any murmurs gallops or rubs. ABDOMEN: Soft and nontender with normal bowel sounds. SKIN: Skin is clear with no lesions or rashes and otherwise unremarkable. NEUROLOGIC: Patient is alert and oriented x3. Cranial nerves II through XII are grossly intact. Motor and sensory are also intact. Normal speech, volume and content. Symmetrical smile. MUSCULOSKELETAL: Patient's left knee and thigh are swollen there is some mild erythema over the left knee. There are some abrasions that appear to be healing. Patient has significant tenderness if you touch the knee and any area of the knee and in the distal thigh LYMPHATICS: No significant lymphadenopathy is noted PSYCHIATRIC: Normal psychiatric evaluation. Limitations: no limitations Course Vital Signs 01/13/22 01/13/22 10:34 13:31 Temperature 97.9 F Pulse Rate 117 H 137 H Respiratory 20 22 Rate Blood Pressure 162/107 160/109 O2 Sat by Pulse 98 96 Oximetry Medical Decision Making - Medical Decision Making EKG shows atrial fibrillation with rapid ventricular response at 119 bpm QRS is 101 QT interval 345 QTC is 416. Patient's EKG shows no ST segment elevation. Ultrasound showed no DVT. I reviewed the x-ray of the knee and saw no fracture. I CAT scan the knee there was a posterior tibial intracondylar fracture Patient was unable to ablate I spoke with Dr. Rojas he agreed to admit the patient admitted the patient wrote admitting orders - Lab Data Result diagrams: 01/13/22 11:05 01/13/22 11:05 Lab Results 01/13/22 01/13/22 01/13/22 Range/Units 11:05 11:05 11:05 WBC 7.2 (3.8-10.6) k/uL RBC 3.96 L (4.30-5.90) m/uL Hgb 12.5 L (13.0-17.5) gm/dL Hct 37.8 L (39.0-53.0) % MCV 95.3 (80.0-100.0) fL MCH 31.5 (25.0-35.0) pg MCHC 33.0 (31.0-37.0) g/dL RDW 14.2 (11.5-15.5) % Plt Count 146 L (150-450) k/uL MPV 7.9 Neutrophils % 67 % Lymphocytes % 24 % Monocytes % 5 % Eosinophils % 2 % Basophils % 1 % Neutrophils # 4.8 (1.3-7.7) k/uL Lymphocytes # 1.7 (1.0-4.8) k/uL Monocytes # 0.4 (0-1.0) k/uL Eosinophils # 0.1 (0-0.7) k/uL Basophils # 0.1 (0-0.2) k/uL PT 10.8 (9.0-12.0) sec INR 1.0 (<1.2) APTT 21.4 L (22.0-30.0) sec Sodium 142 (137-145) mmol/L Potassium 3.9 (3.5-5.1) mmol/L Chloride 108 H (98-107) mmol/L Carbon Dioxide 23 (22-30) mmol/L Anion Gap 11 mmol/L BUN 16 (9-20) mg/dL Creatinine 0.62 L (0.66-1.25) mg/dL Est GFR (CKD-EPI)AfAm >90 (>60 ml/min/1.73 sqM) Est GFR (CKD-EPI)NonAf >90 (>60 ml/min/1.73 sqM) Glucose 114 H (74-99) mg/dL Plasma Lactic Acid [place] (0.7-2.0) mmol/L Calcium 8.3 L (8.4-10.2) mg/dL Magnesium 1.8 (1.6-2.3) mg/dL Total Bilirubin 0.9 (0.2-1.3) mg/dL AST 34 (17-59) U/L ALT 29 (4-49) U/L Alkaline Phosphatase 78 (38-126) U/L Troponin I (0.000-0.034) ng/mL Total Protein 6.7 (6.3-8.2) g/dL Albumin 4.0 (3.5-5.0) g/dL 01/13/22 01/13/22 Range/Units 11:05 11:05 WBC (3.8-10.6) k/uL RBC (4.30-5.90) m/uL Hgb (13.0-17.5) gm/dL Hct (39.0-53.0) % MCV (80.0-100.0) fL MCH (25.0-35.0) pg MCHC (31.0-37.0) g/dL RDW (11.5-15.5) % Plt Count (150-450) k/uL MPV Neutrophils % % Lymphocytes % % Monocytes % % Eosinophils % % Basophils % % Neutrophils # (1.3-7.7) k/uL Lymphocytes # (1.0-4.8) k/uL Monocytes # (0-1.0) k/uL Eosinophils # (0-0.7) k/uL Basophils # (0-0.2) k/uL PT (9.0-12.0) sec INR (<1.2) APTT (22.0-30.0) sec Sodium (137-145) mmol/L Potassium (3.5-5.1) mmol/L Chloride (98-107) mmol/L Carbon Dioxide (22-30) mmol/L Anion Gap mmol/L BUN (9-20) mg/dL Creatinine (0.66-1.25) mg/dL Est GFR (CKD-EPI)AfAm (>60 ml/min/1.73 sqM) Est GFR (CKD-EPI)NonAf (>60 ml/min/1.73 sqM) Glucose (74-99) mg/dL Plasma Lactic Acid [place] 1.3 (0.7-2.0) mmol/L Calcium (8.4-10.2) mg/dL Magnesium (1.6-2.3) mg/dL Total Bilirubin (0.2-1.3) mg/dL AST (17-59) U/L ALT (4-49) U/L Alkaline Phosphatase (38-126) U/L Troponin I 0.019 (0.000-0.034) ng/mL Total Protein (6.3-8.2) g/dL Albumin (3.5-5.0) g/dL Disposition Clinical Impression: Tibia fracture, Unable to ambulate Disposition: ADMITTED IP TO THIS [facility] Instructions (If sedation given, give patient instructions): Fall Prevention for Older Adults (ED) Is patient prescribed a controlled substance at d/c from ED?: No Referrals: Roel Lopez DO [Primary Care Provider] - 1-2 days Time of Disposition: 15:16
[2022-01-13 11:46] LABS: Prothrombin Time 10.8 sec (9.0-12.0)
[2022-01-13 11:47] LABS: Partial Thromboplastin Time 21.4 sec (22.0-30.0)
[2022-01-13 11:48] LABS: ALT 29 U/L (4-49); AST 34 U/L (17-59); African American GFR (CKD) >90 (>60 ml/min/1.73 sqM); Alkaline Phosphatase 78 U/L (38-126); Anion Gap 11 mmol/L; Blood Urea Nitrogen 16 mg/dL (9-20); Calcium 8.3 mg/dL (8.4-10.2); Carbon Dioxide 23 mmol/L (22-30); Chloride 108 mmol/L (98-107); Glucose 114 mg/dL (74-99); Magnesium 1.8 mg/dL (1.6-2.3); Non-African American GFR(CKD) >90 (>60 ml/min/1.73 sqM); Potassium 3.9 mmol/L (3.5-5.1); Sodium 142 mmol/L (137-145); Total Bilirubin 0.9 mg/dL (0.2-1.3); Total Protein 6.7 g/dL (6.3-8.2)
--- NOTE | 2022-01-13 12:45 | US ---
EXAMINATION TYPE: US venous doppler duplex LE LT DATE OF EXAM: 01/13/2022 12:02 PM COMPARISON: Venous Doppler study dated 09/23/2016 CLINICAL HISTORY: Swelling and leg pain. Pain and edema left leg. Patient fell 4 days ago SIDE PERFORMED: left TECHNIQUE: The lower extremity deep venous system is examined utilizing real time linear array sonog keesha with graded compression, doppler sonography and color-flow sonography. VESSELS IMAGED: Common Femoral Vein Superior aspect of the Greater Saphenous Vein * Femoral Vein Popliteal Vein Proximal Calf Veins (* superficial vessels) Left Leg: no evidence of acute DVT as visualized. Limited evaluation, patient unable to tolerate pre ssure within knee area, limited evaluation of popliteal vessels IMPRESSION: Limited venous Doppler study as described above. With this limitation, no evidence of acute DVT of th e left lower extremity.
[2022-01-13] MEDS ORDERED: HYDROmorphone 0.5 MG/0.5 ML SYRINGE IVP STA (13:29)
[2022-01-13] MEDS ORDERED: KETOROLAC 15 MG/ML 1 ML VIAL IVP STA (13:29)
--- NOTE | 2022-01-13 14:47 | CT ---
EXAMINATION TYPE: CT knee LT wo con DATE OF EXAM: 01/13/2022 COMPARISON: X-ray dated 01/11/2022 HISTORY: Left knee pain CT DLP: 263.6 mGycm Automated exposure control for dose reduction was used. TECHNIQUE: CT scan of the left knee joint without IV contrast administration. FINDINGS: Diffuse osteopenia. Nondisplaced fracture of the posterior aspect of the tibial intercondylar region with a bone fragment measuring 11 x 20 mm. This could represent an avulsion fracture at the tibial attachment of the PCL. The fracture line is seen extending into the posterior margin of the t ibia as well as the posterior aspect of the tibial articular surface. No other definite acute fracture line identified. Small knee joint effusion with questionable small h emarthrosis. No patellar dislocation or significant subluxation. Mild degenerative changes of the lef t knee joint. Arterial atherosclerotic calcifications. IMPRESSION: Fractured posterior aspect of the tibial intercondylar region, possibly representing avulsion fractur e at the tibial attachment of the PCL as described above, for clinical correlation and orthopedic con sultation. Other findings as described above.
[2022-01-13] MEDS ORDERED: METOPROLOL TARTRATE 5 MG/5 ML VIAL IVP STA (14:58)
[2022-01-13] MEDS ORDERED: MECLIZINE 12.5 MG TAB PO STA (15:04)
[2022-01-13] MEDS ORDERED: SODIUM CHLORIDE 0.9% 1,000 ML IV ONE (15:19)
[2022-01-13] MEDS ORDERED: HYDROmorphone 0.5 MG/0.5 ML SYRINGE IVP PRN (15:22)
--- NOTE | 2022-01-13 16:21 | P.HPOR ---
History of Present Illness H&P Date: 01/13/22 Chief Complaint: Left knee pain Patient is an 86-year-old male who came in to [facility] emergency room for evaluation of his left knee. Patient apparently fell on 01/10/2022 while at home. He was evaluated in the ER [facility] on 01/11/2022. He underwent multiple imaging studies, there were no acute fractures that were noted. Patient was then discharged home. Since being discharged home, the pain has gotten worse with the left knee. Patient has been unable to weight-bear on the left knee since the injury has been having a lot of help at home from his family and getting around. After arriving in the emergency room today, after evaluation imaging test were ordered, this including a computed tomography scan. Computed tomography scan d emonstrated a fracture the posterior tibia. Our orthopedic team was consulted with regards to this, patient was then subsequently admitted under our care for further evaluation and likely placement. Patient was evaluated today in the emergency room, he is resting in his hospital bed. He describes most of the pain in the posterior aspect of the knee, he also gets pain that radiates up into his thigh. Patient has no complaints of the right lower extremity, bilateral upper extremities. He denies any new onset cervical, thoracic or lumbar pain. He denies any surgery of the left lower extremity previously. Patient states that he normally utilizes a cane when he ambulates. He states that the fall occurred while using his cane, he tripped and fell forward landing on the left knee on concrete. Currently patient denies any paresthesias of bilateral lower extremities. He denies any loss of bowel or bladder function. He denies any genital numbness or tingling or peroneal numbness or tingling. 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 Past trauma Past Anesthesia/Blood Transfusion Reactions: No Reported Reaction Date of Last Stent Placement:: 2014 Past Psychological History: No Psychological Hx Reported Smoking Status: Never smoker Past Alcohol Use History: None Reported Past Drug Use History: None Reported - Past Family History Mother Additional Family Medical History / Comment(s): Mother had mental health problems. Father Family Medical History: No Reported History Medications and Allergies Home Medications Medication Instructions Recorded Confirmed Type Tamsulosin [Flomax] 0.4 mg PO DAILY 09/23/16 01/13/22 History Apixaban [Eliquis] 5 mg PO BID #60 tab 09/26/16 04/16/21 Rx Phenytoin Sodium Extended 200 mg PO TID 11/21/17 04/16/21 History [Dilantin] Isosorbide Mononitrate ER [Imdur] 30 mg PO DAILY #30 tab.er.24h 07/18/19 01/13/22 Rx Escitalopram [Lexapro] 5 mg PO DAILY 07/25/20 01/13/22 History Metoprolol Tartrate [Lopressor] 25 mg PO DAILY 11/24/20 01/13/22 History Donepezil [Aricept] 5 mg PO HS 01/13/22 01/13/22 History Gabapentin [Neurontin] 200 mg PO TID 01/13/22 01/13/22 History Allergies Allergy/AdvReac Type Severity Reaction Status Date / Time Penicillins Allergy Rash/Hives Verified 01/13/22 13:36 Physical Examination Left lower extremity: No obvious open lesions or sores are visualized throughout the extremity. There is ecchymosis and small abrasion present over the anterior aspect of the knee. There is chronic skin discoloration noted in the lower leg Obvious effusion is notable on the knee Logroll maneuver of the extremity reproduces no pain in the groin. Patient's nontender with palpation of the proximal femur, this including the greater trochanteric region. Compartments of the anterior and posterior thigh are soft and compressible. Compartments of the lower leg are soft and compressible, calf is soft, no t enderness with palpation. Patient demonstrates no point tenderness to the lower leg, this included the foot or ankle. He has generalized tenderness with palpation surrounding the knee, mainly in the suprapatellar region. . Range of motion was very difficult to assess due to pain reproduced with flexion of the knee. I was able to appreciate evidence of activate quadriceps and patellar tendon. Plantar flexion, dorsiflexion, EHL, FHL are intact. Dorsalis pedis pulses 2+ Results - Labs Labs: Abnormal Lab Results - Last 24 Hours (Table) 01/13/22 01/13/22 01/13/22 Range/Units 11:05 11:05 11:05 RBC 3.96 L (4.30-5.90) m/uL Hgb 12.5 L (13.0-17.5) gm/dL Hct 37.8 L (39.0-53.0) % Plt Count 146 L (150-450) k/uL APTT 21.4 L (22.0-30.0) sec Chloride 108 H (98-107) mmol/L Creatinine 0.62 L (0.66-1.25) mg/dL Glucose 114 H (74-99) mg/dL Calcium 8.3 L (8.4-10.2) mg/dL H & H 01/13/22 Range/Units 11:05 Hgb 12.5 L (13.0-17.5) gm/dL Hct 37.8 L (39.0-53.0) % Coagulation 01/13/22 Range/Units 11:05 INR 1.0 (<1.2) Result Diagrams: 01/13/22 11:05 01/13/22 11:05 - Diagnostic results Knee CT: report reviewed, image reviewed (CT images along with report were reviewed. Images demonstrate a mildly displaced posterior tibial plateau fracture. There is an obvious joint effusion present.) Assessment and Plan Assessment: Left knee posterior tibial plateau fracture Left knee effusion Status post recent fall from standing Multiple medical comorbidities Plan: I was able to discuss the case, this concluded with physical exam findings and imaging studies attending Dr. Rojas. No emergent orthopedic surgical intervention is recommended at this time. Recommending conservative measures, this to include icing and elevating. Patient will be fitted for a knee immobilizer. Toe-touch weightbearing at this time, recommend use of a walker at all times I did discuss with patient the possibility of an aspiration of the left knee to help provide symptom relief, we will revisit this on 01/14/2022 Pain control, recommend use of Tylenol and low-dose pain medication as needed GI and DVT prophylaxis, okay resuming home prescribed anticoagulant PT/OT evaluation Medical recommendations Discharge planning: Anticipate subacute rehab placement Further recommendations to follow Time with Patient: Less than 30
[2022-01-14] MEDS ORDERED: Potassium Replacement Protocol 1 EACH MISC MISCELLANE PRN (08:18)
[2022-01-14] MEDS ORDERED: PANTOPRAZOLE 40 MG/10 ML VIAL IVP SCH (09:00)
[2022-01-14] MEDS: ESCITALOPRAM 5 MG TAB PO SCH (10:04)
[2022-01-14] MEDS: GABAPENTIN 100 MG CAP PO SCH ×3 (10:04→22:32)
[2022-01-14] MEDS: PHENYTOIN SODIUM EXTENDED 100 MG CAP PO SCH ×3 (10:04→22:32)
[2022-01-14] MEDS: TAMSULOSIN 0.4 MG CAP.ER.24H PO SCH (10:04)
[2022-01-14] MEDS: METOPROLOL TARTRATE 25 MG TAB PO SCH (10:04)
[2022-01-14] MEDS ORDERED: ACETAMINOPHEN TAB 325 MG TAB PO PRN (12:39)
--- NOTE | 2022-01-14 13:13 | P.PN ---
Subjective Progress Note Date: 01/14/22 Principal diagnosis: Left knee pain, left lateral tibial plateau fracture Patient was evaluated today at bedside, he is still remains in the emergency room. Immobilizer was delivered, but not fitted. He states that the knee is feeling a lot better today. He is yet to be out of bed at this time. Continues to have discomfort in the left knee mainly with flexion and extension he has no other orthopedic complaints at this time Objective - Vital Signs Vital signs: Vital Signs Temp 98.1 F 01/13/22 15:25 Pulse 110 H 01/14/22 07:49 Resp 20 01/14/22 07:49 BP 154/90 01/14/22 07:49 Pulse Ox 97 01/14/22 07:49 FiO2 Intake & Output 01/13/22 01/14/22 01/14/22 18:59 06:59 18:59 Weight 108.862 kg - Exam Left lower extremity: No obvious open lesions or sores are visualized throughout the extremity. There is ecchymosis and small abrasion present over the anterior aspect of the knee. There is chronic skin discoloration noted in the lower leg Effusion is notable on the knee Logroll maneuver of the extremity reproduces no pain in the groin. Patient's nontender with palpation of the proximal femur, this including the greater trochanteric region. Compartments of the anterior and posterior thigh are soft and compressible. Compartments of the lower leg are soft and compressible, calf is soft, no tenderness with palpation. Patient demonstrates no point tenderness to the lower leg, this included the fo ot or ankle. He has generalized tenderness with palpation surrounding the knee, mainly in the suprapatellar region. . Range of motion was very difficult to assess due to pain reproduced with flexion of the knee. I was able to appreciate evidence of activate quadriceps and patellar tendon. Plantar flexion, dorsiflexion, EHL, FHL are intact. Dorsalis pedis pulses 2+ - Labs CBC & Chem 7: 01/13/22 11:05 01/13/22 11:05 Assessment and Plan Assessment: Left knee posterior tibial plateau fracture Left knee effusion Status post recent fall from standing Multiple medical comorbidities Plan: Continue conservative measures, this to include icing and elevating. The immobilizer was applied today Toe-touch weightbearing at this time, recommend use of a walker at all times Effusion has improved, still considering aspiration of patient's symptoms worsen. We will again revisit this on 01/15/2022 Pain control, recommend use of Tylenol and low-dose pain medication as needed GI and DVT prophylaxis, okay resuming home prescribed anticoagulant PT/OT evaluation Medical recommendations Discharge planning: Recommending subacute rehab placement for this patient Time with Patient: Less than 30
[2022-01-14] MEDS ORDERED: FUROSEMIDE 10 MG/ML 4 ML VIAL IV STA (17:03)
[2022-01-14] MEDS ORDERED: IPRATROPIUM-ALBUTEROL 3 ML NEB INHALATION PRN (17:15)
[2022-01-14] MEDS ORDERED: Magnesium Replacement Protocol 1 EACH MISC MISCELLANE PRN (17:27)
--- NOTE | 2022-01-14 17:28 | P.CONS ---
History of Present Illness - Reason for Consult Consult date: 01/14/22 Medical management COPD,hypertension, seizure disorder Requesting physician: Garcia Rojas - Chief Complaint Past status post fall - History of Present Illness This is an 86-year-old gentleman with past medical history of CAD, MT, cardiac stents, atrial fibrillation, COPD, hypertension, hyperlipidemia, renal disease, seizure disorder, deafness, recent of spouse, initially presented to the ER on 01/11/2022, reported he has been walking with a cane, was running fast down 5 steps, take to help his neighbor, slipped and landed on his knee after the fifth step. Multiple radiology studies performed reporting no acute fractures as per orthopedic surgery review and patient was discharged home. Patient returned to the ER with increased pain and weakness of the affected extremity. Knee CT reported fractured posterior aspect of the tibial intercondylar region, p ossibly representing avulsion fracture at the tibial attachment of the PCL. Evaluated by orthopedic surgery, recommending conservative treatment at this time. Telemetry atrial fibrillation with heart rates in the low 100s, hypertensive, maintaining O2 sats of high 90s on 3 L nasal cannula. Chest x-ray reporting persistent signs of pulmonary edema/CHF with no progressive pulmonary consolidation. Echo of 08/24/20 reported severe global hypokinesis of L3, severely impaired EF between 20 and 25%, severely dilated LA, moderate mitral regurgitation, mild pulmonary hypertension. On admission, atrial fibrillation with heart rates in the 137, hypertensive with blood pressure 160/109, tachypnea, restrain a 22, satting 96% on room air. Currently requiring 3 L nasal cannula and maintaining O2 sats in the 90s. Review of Systems ROS Statement: Those systems with pertinent positive or pertinent negative responses have been documented in the HPI. ROS Other: All systems not noted in ROS Statement are negative. Past Medical History Past Medical History: Atrial Fibrillation, Coronary Artery Disease (CAD), COPD, Hyperlipidemia, Hypertension, Myocardial Infarction (MT), Pneumonia, Renal Disea se, Seizure Disorder, Syncope Additional Past Medical History / Comment(s): bilateral pneumonia in past,seizures with last one in 2011, possible L inguinal hernia which causes sudden pain and he falls at times because of this-had ultrasound 2 days ago, 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 Past trauma Past Anesthesia/Blood Transfusion Reactions: No Reported Reaction Date of Last Stent Placement:: 2014 Past Psychological History: No Psychological Hx Reported Smoking Status: Never smoker Past Alcohol Use History: None Reported Past Drug Use History: None Reported - Past Family History Mother Additional Family Medical History / Comment(s): Mother had mental health problems. Father Family Medical History: No Reported History Medications and Allergies Home Medications Medication Instructions Recorded Confirmed Type Tamsulosin [Flomax] 0.4 mg PO DAILY 09/23/16 01/13/22 History Apixaban [Eliquis] 5 mg PO BID #60 tab 09/26/16 01/13/22 Rx Phenytoin Sodium Extended 200 mg PO TID 11/21/17 01/13/22 History [Dilantin] Isosorbide Mononitrate ER [Imdur] 30 mg PO DAILY #30 tab.er.24h 07/18/19 01/13/22 Rx Escitalopram [Lexapro] 5 mg PO DAILY 07/25/20 01/13/22 History Metoprolol Tartrate [Lopressor] 25 mg PO DAILY 11/24/20 01/13/22 History Donepezil [Aricept] 5 mg PO HS 01/13/22 01/13/22 History Gabapentin [Neurontin] 200 mg PO TID 01/13/22 01/13/22 History Allergies Allergy/AdvReac Type Severity Reaction Status Date / Time Penicillins Allergy Rash/Hives Verified 01/13/22 13:36 Physical Exam Vitals: Vital Signs Pulse Resp BP Pulse Ox 01/14/22 13:40 109 H 18 162/92 97 01/14/22 07:49 110 H 20 154/90 97 01/14/22 05:00 91 18 158/92 99 01/14/22 00:00 80 18 162/106 99 01/13/22 20:00 108 H 18 147/93 96 01/13/22 17:00 78 18 124/84 98 PHYSICAL EXAM: VITAL SIGNS: [As above] GENERAL: Sitting up in bed, no acute distress. HEENT: Conjunctivae normal. eyes normal. Oral mucosa moist. NECK: No JVD. No thyroid enlargement. No LNs CARDIOVASCULAR: S1, S2 irregular, tachycardic.systolic murmur. RESPIRATION: Breath sounds diminished in the bases. No rhonchi. ABDOMEN: Soft, nontender . No guarding. no masses palpable. No ascites, No hepatosplenomegaly.Bowel sounds heard. LEGS: Left knee ecchymosis with abrasion, No clubbing, no cyanosis. PSYCHIATRY: Alert and oriented X3, mood and affect normal. NERVOUS SYSTEM: Cranial N 2-12 grossly normal.No focal deficits. Skin: warm and dry, no rash Results CBC & Chem 7: 01/13/22 11:05 01/13/22 11:05 Labs: Microbiology - Last 24 Hours (Table) 01/13/22 12:15 Blood Culture - Preliminary Blood No Growth after 24 hours 01/13/22 12:00 Blood Culture - Preliminary Blood No Growth after 24 hours Assessment and Plan Assessment: Left knee posterior tibial plateau fracture with effusion, secondary to recent fall Chronic persistent A. fib with RVR, anticoagulated on Eliquis Mild acute on Chronic CHF exacerbation, systolic dysfunction, EF , echo 08/24/20 severe global hypokinesis and LV, severely dilated LA, EF 20-25%. Acute hypoxic respiratory failure secondary to the above Hypertension Mild pulmonary hypertension COPD CAD, history of MT, stents Hyperlipidemia Seizure disorder Obesity, BMI 35.6 History of DVTs/PE Pulmonary hypertension Plan: Continue on current medication regime, monitoring and symptomatic t reatment. Lasix IV push, echo, cardiology consult initiated. Home meds have been reviewed and resumed accordingly. Evaluated by orthopedic surgery who recommended conservative treatment. knee immobilizer pending. Pain management. PT/OT. The impression and plan of care has been dictated as directed. : I performed a history and examination of this patient, discussed the same with the dictator. I agree with the dictator's note ,documented as a scribe. Any additional findings or plans will be noted.
[2022-01-14] MEDS: IPRATROPIUM-ALBUTEROL 3 ML NEB INHALATION SCH (19:13)
[2022-01-14] MEDS: APIXABAN 5 MG TAB PO SCH (22:32)
[2022-01-14] MEDS: DONEPEZIL 5 MG TAB PO SCH (22:32)
[2022-01-14] MEDS: ISOSORBIDE MONONITRATE ER 30 MG TAB.ER.24H PO SCH (22:32)
[2022-01-15] MEDS ORDERED: METOPROLOL TARTRATE 50 MG TAB PO STA (02:06)
[2022-01-15] MEDS: ISOSORBIDE MONONITRATE ER 30 MG TAB.ER.24H PO SCH (08:35)
[2022-01-15] MEDS: TAMSULOSIN 0.4 MG CAP.ER.24H PO SCH (08:35)
[2022-01-15] MEDS: ESCITALOPRAM 5 MG TAB PO SCH (08:36)
[2022-01-15] MEDS: PANTOPRAZOLE 40 MG TABLET PO SCH (08:36)
[2022-01-15] MEDS: PHENYTOIN SODIUM EXTENDED 100 MG CAP PO SCH ×3 (08:36→20:49)
[2022-01-15] MEDS: APIXABAN 5 MG TAB PO SCH ×2 (08:36→20:49)
[2022-01-15] MEDS: METOPROLOL TARTRATE 25 MG TAB PO SCH (08:36)
[2022-01-15] MEDS: GABAPENTIN 100 MG CAP PO SCH ×3 (08:36→20:49)
[2022-01-15] MEDS ORDERED: FUROSEMIDE 10 MG/ML 4 ML VIAL IV SCH ×2 (09:00)
[2022-01-15] MEDS ORDERED: ISOSORBIDE MONONITRATE ER 30 MG TAB.ER.24H PO SCH (09:00)
[2022-01-15] MEDS: IPRATROPIUM-ALBUTEROL 3 ML NEB INHALATION SCH ×4 (09:22→19:35)
[2022-01-15 09:58] LABS: Basophils # (A) 0.03 X 10*3/uL (0.00-0.10); Basophils % (A) 0.4 %; Eosinophils % (A) 1.3 %; HCT 36.3 % (39.6-50.0); Immature Grans, Automated 0.4 %; Lymphocytes % (A) 15.7 %; MCH 30.8 pg (27.0-32.0); MCHC 33.1 g/dL (32.0-37.0); MCV 93.3 fL (80.0-97.0); Mean Platelet Volume 9.8 fL (9.5-12.2); Monocytes # (A) 0.48 X 10*3/uL (0.20-1.00); Monocytes % (A) 6.3 %; NRBC Per 100 WBC 0 /100 WBCS (0.0-0.0); Neutrophils % (A) 75.9 %; Platelet Count 143 X 10*3/uL (140-440); RBC 3.89 X 10*6/uL (4.40-5.60); RDW 13.8 % (11.5-14.5); WBC 7.64 X 10*3/uL (4.50-10.00)
[2022-01-15 10:23] LABS: African American GFR (CKD) 99.7 (60.0-200.0); Anion Gap 15.9 mmol/L (10.00-18.00); BUN/Creat Ratio 22.43 Ratio (12.00-20.00); Blood Urea Nitrogen 15.7 mg/dL (9.0-27.0); Calcium 8.3 mg/dL (8.7-10.3); Carbon Dioxide 18.1 mmol/L (20.0-27.5); Magnesium 1.8 mg/dL (1.5-2.4); Non-African American GFR(CKD) 86.1 (60.0-200.0)
--- NOTE | 2022-01-15 10:57 | P.CRDCN ---
History of Present Illness History of present illness: HISTORY OF PRESENT ILLNESS: This is a 85-year-old male with a past medical history significant for permanent atrial fibrillation, hypertension, hyperlipidemia, PE, COPD, and coronary artery disease with stent placement to the LAD in 2011. Patient follows in the office with Dr. Henning We have been asked to see the patient in consultation for CHF and AKassandra fib with RVR. Patient presented to the hospital with left knee pain. He states that he fell 4 days ago, and he had increased pain, swelling to his left knee and left thigh. Patient states he was walking with his cane, he was going down the stairs and slipped and landed on his knee. He denies any chest pain, palpitations, ligh theadedness, dizziness, syncope or near-syncope. No loss of consciousness. Computed tomography scan of his left knee report reveals fractured posterior aspect of the tibial intercondylar region, possibly representing evolution fraction at the tibial attachment of the PCL. Orthopedics was consulted and evaluated the patient. At this time. They recommended conservative measures, no planned surgery at this time. Overnight patient and was in atrial fibrillation with rapid response, and an extra dose of metoprolol titrate 50 mg. His heart rate has improved, continues been Ashlyn Aguilar with heart rate in 80s90s. Patient was also started on IV Lasix has been given a total of 2 doses of 40 mg IV Lasix. Patient with 1.4L urine output. DIAGNOSTICS: EKG reveals atrial fibrillation with RVR, heart rate 119, no acute abnormalities his chest ischemia Chest xray persistent signs of pulmonary edema. No progressive pulmonary consolidation. Laboratory data: Troponin negative, sodium 141, potassium 4.0, BUN 15, serum creatinine 0.7, magnesium 1.8, WBC 7.6, hemoglobin 12, platelets 143 Current home cardiac medications include Eliquis 5 mg twice a day, metoprolol tartrate 25 mg daily, Imdur 30 mg daily, Echocardiogram completed 08/2020 revealed an EF of 25%, mild tricuspid regurgitation, moderate mitral regurgitation, mild pulmonary hypertension Cardiac catheterization in 2011 revealed 80% stenosis in the proximal LAD, after diagonal branch prior to the major septal with 40-50% plaque in the circumflex. Patient underwent PCI to the proximal LAD. REVIEW OF SYSTEMS: At the time of my exam: CONSTITUTIONAL: Denies fever or chills. HEENT: Denies blurred vision, vision changes, or eye pain. Denies hemoptysis CARDIOVASCULAR: Denies chest pain, orthopnea, PND or palpitations RESPIRATORY: No shortness of breath. GASTROINTESTINAL: Denies abdominal pain. Denies nausea or vomiting. HEMATOLOGIC: Denies bleeding disorders. GENITOURINARY: Denies any blood in urine. SKIN: Denies pruitis. Denies rash. PHYSICAL EXAM: VITAL SIGNS: Reviewed. GENERAL: Well-developed in no acute distress. HEENT: Head is normocephalic. Pupils are equal, round. Sclerae anicteric. Mucous membranes of the mouth are moist. Neck supple. No JVD or thyromegaly LUNGS: Respirations even and unlabored. Lungs diminished with minimal bibasilar rales HEART: Irregular rate and rhythm. S1 and S2 heard. Systolic murmur noted at apex ABDOMEN: Soft. Nondistended. Nontender. EXTREMITIES: Normal range of motion. No clubbing or cyanosis. Peripheral pulses intact. Trace bilateral lower extremity edema. Swelling of the left knee noted NEUROLOGIC: Awake and alert. Oriented x 3. ASSESSMENT: Left knee tibial fracture Mechanical fall at home Permanent atrial fibrillation with RVR, on anticoagulation with Eliquis Acute exacerbation of chronic systolic congestive heart failure, EF 35-40% Coronary disease with previous stent placement LAD, 2011 Hypertension Hyperlipidemia COPD History of PE PLAN: Increase metoprolol tartrate to 50mg BID 2D echocardiogram ordered, however, patient refused and adamant about being discharged. Continue Eliquis for anticoagulation Transition to Lasix 40mg Daily PO No further inpatient changes from a cardiology perspective, discharge per primary. Close follow up outpatient with Dr. Hodge or NM based on patient's preference Nurse practitioner note has been reviewed by physician. Signing provider agrees with the documented findings, assessment, and plan of care. Past Medical History Past Medical History: Atrial Fibrillation, Coronary Artery Disease (CAD), COPD, Hyperlipidemia, Hypertension, Myocardial Infarction (OR), Pneumonia, Renal Disease, Seizure Disorder, Syncope Additional Past Medical History / Comment(s): bilateral pneumonia in past,seizures with last one in 2011, possible L inguinal hernia which causes sudden pain and he falls at times because of this-had ultrasound 2 days ago, 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 Past trauma Past Anesthesia/Blood Transfusion Reactions: No Reported Reaction Date of Last Stent Placement:: 2014 Past Psychological History: No Psychological Hx Reported Additional Psychological History / Comment(s): Pt lives with his spouse of over 60 yrs, who he is the primary caregiver for. He uses a walker and cane. He drives. He is an [employer] and served over in [employer]. Smoking Status: Never smoker Past Alcohol Use History: None Reported Past Drug Use History: None Reported - Past Family History Mother Additional Family Medical History / Comment(s): Mother had mental health problems. Father Family Medical History: No Reported History Medications and Allergies Home Medications Medication Instructions Recorded Confirmed Type Tamsulosin [Flomax] 0.4 mg PO DAILY 09/23/16 01/13/22 History Apixaban [Eliquis] 5 mg PO BID #60 tab 09/26/16 01/13/22 Rx Phenytoin Sodium Extended 200 mg PO TID 11/21/17 01/13/22 History [Dilantin] Isosorbide Mononitrate ER [Imdur] 30 mg PO DAILY #30 tab.er.24h 07/18/19 01/13/22 Rx Escitalopram [Lexapro] 5 mg PO DAILY 07/25/20 01/13/22 History Metoprolol Tartrate [Lopressor] 25 mg PO DAILY 11/24/20 01/13/22 History Donepezil [Aricept] 5 mg PO HS 01/13/22 01/13/22 History Gabapentin [Neurontin] 200 mg PO TID 01/13/22 01/13/22 History Allergies Allergy/AdvReac Type Severity Reaction Status Date / Time Penicillins Allergy Rash/Hives Verified 01/13/22 13:36 Physical Exam Vitals: Vital Signs Temp Pulse Pulse Resp BP BP Pulse Ox 01/15/22 07:41 98.4 F 79 16 143/80 94 L 06/15/22 02:17 97.5 F L 65 16 118/76 96 01/14/22 20:38 97.9 F 126 H 16 163/87 95 01/14/22 20:00 17 01/14/22 19:45 98.6 F 103 H 18 138/90 97 01/14/22 19:20 100 01/14/22 19:13 102 H 01/14/22 13:40 109 H 18 162/92 97 Intake and Output 01/14/22 01/15/22 01/15/22 22:59 06:59 14:59 Output Total 1400 Balance -1400 Output: Urine 1400 Other: # Voids 4 # Bowel Movements 1 Weight 108.862 kg Results 01/15/22 05:27 01/15/22 05:27 Current Medications Generic Name Dose Route Start Last Admin Trade Name Freq PRN Reason Stop Dose Admin Acetaminophen 650 mg 01/14/22 12:39 Acetaminophen Tab 325 Mg Tab PO Q6HR PRN Fever and/ or Pain Albuterol/Ipratropium 3 ml 01/14/22 20:00 01/14/22 19:13 Ipratropium-Albuterol 3 Ml Neb INHALATION 3 ml RT-QID MARYBEL Administration Albuterol/Ipratropium 3 ml 01/14/22 17:15 Ipratropium-Albuterol 3 Ml Neb INHALATION RT-Q2H PRN Shortness Of Breath Or Wheezing Apixaban 5 mg 01/14/22 21:00 01/14/22 22:32 Apixaban 5 Mg Tab PO 5 mg BID MARYBEL Administration Protocol Donepezil HCl 5 mg 01/14/22 21:00 01/14/22 22:32 Donepezil 5 Mg Tab PO 5 mg HS MARYBEL Administration Escitalopram Oxalate 5 mg 01/14/22 09:00 01/14/22 10:04 Escitalopram 5 Mg Tab PO 5 mg DAILY MARYBEL Administration Furosemide 40 mg 01/15/22 09:00 Furosemide 10 Mg/Ml 4 Ml Vial IV DAILY MARYBEL Gabapentin 200 mg 01/14/22 09:00 01/14/22 22:32 Gabapentin 100 Mg Cap PO 200 mg TID MARYBEL Administration Isosorbide Mononitrate 30 mg 01/14/22 17:14 01/14/22 22:32 Isosorbide Mononitrate Er 30 Mg Tab.Er.24h PO 30 mg DAILY MARYBEL Administration Metoprolol Tartrate 25 mg 01/14/22 09:00 01/14/22 10:04 Metoprolol Tartrate 25 Mg Tab PO 25 mg DAILY MARYBEL Administration Miscellaneous Information 1 each 01/14/22 08:18 Potassium Replacement Protocol 1 Each [facility] [place] DAILY PRN Per Protocol Protocol Miscellaneous Information 1 each 01/14/22 17:27 Magnesium Replacement Protocol 1 Each [facility] [place] PRN Per Protocol Protocol Pantoprazole Sodium 40 mg 01/15/22 07:30 Pantoprazole 40 Mg Tablet PO AC-[id number] MARYBEL Phenytoin Sodium 200 mg 01/14/22 09:00 01/14/22 22:32 Phenytoin Sodium Extended 100 Mg Cap PO 200 mg TID MARYBEL Administration Tamsulosin HCl 0.4 mg 01/14/22 09:00 01/14/22 10:04 Tamsulosin 0.4 Mg Cap.Er.24h PO 0.4 mg DAILY MARYBEL Administration Intake and Output 01/14/22 01/15/22 01/15/22 22:59 06:59 14:59 Output Total 1400 Balance -1400 Output: Urine 1400 Other: # Voids 4 # Bowel Movements 1 Weight 108.862 kg 01/13/22 11:05 01/13/22 11:05
--- NOTE | 2022-01-15 11:26 | P.PN ---
Subjective Progress Note Date: 01/15/22 Principal diagnosis: Left knee pain, left lateral tibial plateau fracture Patient was evaluated today at bedside, he is resting in his hospital chair. Discussed with physical therapy today, he was a 2 person assist, she states that he did do a little better than expected. He states the knee is feeling better. He has continued to utilize any immobilizer. Patient is very eager to be discharged home. Objective - Vital Signs Vital signs: Vital Signs Temp 98.4 F 01/15/22 07:41 Pulse 79 01/15/22 08:55 Resp 16 01/15/22 08:55 BP 143/80 01/15/22 07:41 Pulse Ox 94 L 01/15/22 07:41 FiO2 Intake & Output 01/14/22 01/15/22 01/15/22 18:59 06:59 18:59 Intake Total 240 Output Total 1400 Balance -1400 240 Weight 108.862 kg Intake: Oral 240 Output: Urine 1400 Other: # Voids 4 # Bowel Movements 1 - Exam Left lower extremity: No obvious open lesions or sores are visualized throughout the extremity. There is ecchymosis and small abrasion present over the anterior aspect of the knee. There is chronic skin discoloration noted in the lower leg Effusion is much improved Logroll maneuver of the extremity reproduces no pain in the groin. Patient's nontender with palpation of the proximal femur, this including the greater trochanteric region. Compartments of the anterior and posterior thigh are soft and compressible. Compartments of the lower leg are soft and compressible, calf is soft, no tenderness with palpation. Patient demonstrates no point tenderness to the lower leg, this included the foot or ankle. He has generalized tenderness with palpation surrounding the knee, mainly in the suprapatellar region. . Range of motion was very difficult to assess due to pain reproduced with flexion of the knee. I was able to appreciate evidence of activate quadriceps and patellar tendon. Plantar flexion, dorsiflexion, EHL, FHL are intact. Dorsalis pedis pulses 2+ - Labs CBC & Chem 7: 01/15/22 05:27 01/15/22 05:27 Labs: Abnormal Lab Results - Last 24 Hours (Table) 01/15/22 01/15/22 Range/Units 05:27 05:27 RBC 3.89 L (4.40-5.60) X 10*6/uL Hgb 12.0 L (13.0-17.0) g/dL Hct 36.3 L (39.6-50.0) % Carbon Dioxide 18.1 L (20.0-27.5) mmol/L BUN/Creatinine Ratio 22.43 H (12.00-20.00) Ratio Glucose 113 H (70-110) mg/dL Calcium 8.3 L (8.7-10.3) mg/dL Microbiology - Last 24 Hours (Table) 01/13/22 12:15 Blood Culture - Preliminary Blood No Growth after 24 hours 01/13/22 12:00 Blood Culture - Preliminary Blood No Growth after 24 hours Assessment and Plan Assessment: Left knee posterior tibial plateau fracture Status post recent fall from standing Multiple medical comorbidities Plan: Continue conservative measures, this to include icing and elevating. Continue use of the knee immobilizer when ambulating Toe-touch weightbearing at this time, recommend use of a walker at all times We'll hold off on aspiration of the knee at this time, patient's symptoms have continued to improve with current conservative measures Pain control, recommend use of Tylenol and low-dose pain medication as needed GI and DVT prophylaxis, okay resuming home prescribed anticoagulant PT/OT evaluation Medical recommendations Discharge planning: Recommending subacute rehab placement for this patient
--- NOTE | 2022-01-15 15:44 | P.PN ---
Subjective Progress Note Date: 01/15/22 - History of Present Illness (01/14/22) This is an 86-year-old gentleman with past medical history of CAD, PR, cardiac stents, atrial fibrillation, COPD, hypertension, hyperlipidemia, renal disease, seizure disorder, deafness, recent of spouse, initially presented to the ER on 01/11/2022, reported he has been walking with a cane, was running fast down 5 steps, take to help his neighbor, slipped and landed on his knee after the fifth step. Multiple radiology studies performed reporting no acute fractures as per orthopedic surgery review and patient was discharged home. Patient returned to the ER with increased pain and weakness of the affected extremity. Knee CT reported fractured posterior aspect of the tibial intercondylar region, possibly representing avulsion fracture at the tibial attachment of the PCL. Evaluated by orthopedic surgery, recommending conservative treatment at this time. Telemetry atrial fibrillation with heart rates in the low 100s, hyperte nsive, maintaining O2 sats of high 90s on 3 L nasal cannula. Chest x-ray reporting persistent signs of pulmonary edema/CHF with no progressive pulmonary consolidation. Echo of 08/24/20 reported severe global hypokinesis of L3, severely impaired EF between 20 and 25%, severely dilated LA, moderate mitral regurgitation, mild pulmonary hypertension. On admission, atrial fibrillation with heart rates in the 137, hypertensive with blood pressure 160/109, tachypnea, restrain a 22, satting 96% on room air. Currently requiring 3 L nasal cannula and maintaining O2 sats in the 90s. 01/15/2022 patient declining echo this morning .evaluated by cardiology, meds further adjusted and cleared for discharge. Objective - Vital Signs Vital signs: Vital Signs Temp 97.5 F L 01/15/22 14:00 Pulse 61 01/15/22 14:00 Resp 19 01/15/22 14:00 BP 126/66 01/15/22 14:00 Pulse Ox 99 01/15/22 14:00 FiO2 Intake & Output 01/14/22 01/15/22 01/15/22 18:59 06:59 18:59 Intake Total 360 Output Total 1400 Balance -1400 360 Weight 108.862 kg Intake: Oral 360 Output: Urine 1400 Other: # Voids 4 # Bowel Movements 1 - Exam PHYSICAL EXAM: VITAL SIGNS: [As above] GENERAL: Alert and oriented 3, Sitting up in bed, no acute distress,grieving recent loss of spouse and family member HEENT: Conjunctivae normal. eyes normal. Oral mucosa moist. NECK: Supple, No JVD. CARDIOVASCULAR: S1, S2 irregular,systolic murmur. RESPIRATION: Breath sounds diminished in the bases. No rhonchi. ABDOMEN: Soft, nontender . No guarding. no masses palpable. Bowel sounds heard. LEGS: Left knee immobilizer present ,No clubbing, no cyanosis. NERVOUS SYSTEM: Cranial N 2-12 grossly normal.No focal deficits. Skin: warm and dry, no rash - Labs CBC & Chem 7: 01/15/22 05:27 01/15/22 05:27 Labs: Abnormal Lab Results - Last 24 Hours (Table) 01/15/22 01/15/22 Range/Units 05:27 05:27 RBC 3.89 L (4.40-5.60) X 10*6/uL Hgb 12.0 L (13.0-17.0) g/dL Hct 36.3 L (39.6-50.0) % Carbon Dioxide 18.1 L (20.0-27.5) mmol/L BUN/Creatinine Ratio 22.43 H (12.00-20.00) Ratio Glucose 113 H (70-110) mg/dL Calcium 8.3 L (8.7-10.3) mg/dL Microbiology - Last 24 Hours (Table) 01/13/22 12:15 Blood Culture - Preliminary Blood No Growth after 48 hours 01/13/22 12:00 Blood Culture - Preliminary Blood No Growth after 48 hours Assessment and Plan Assessment: Left knee posterior tibial plateau fracture with effusion, secondary to recent fall Actively grieving,spouse recently passed Chronic persistent A. fib with RVR, anticoagulated on Eliquis Mild acute on Chronic CHF exacerbation, systolic dysfunction, EF , echo 08/24/20 severe global hypokinesis and LV, severely dilated LA, EF 20-25%. Acute hypoxic respiratory failure secondary to the above, improved Hypertension Mild pulmonary hypertension COPD CAD, history of PR, stents Hyperlipidemia Seizure disorder Obesity, BMI 35.6 History of DVTs/PE Pulmonary hypertension Plan: Continue on current medication regime, monitoring and symptomatic treatment. Patient currently rambling on and on, alert and oriented 3 and baseline per PCP, Dr. Lopez. Patient recently lost his and is actively gri eving. Patient declined echo. Patient declining subacute rehab. Patient medically cleared for discharge. Follow-up with PCP in one week. The impression and plan of care has been dictated as directed. : I performed a history and examination of this patient, discussed the same with the dictator. I agree with the dictator's note ,documented as a scribe. Any additional findings or plans will be noted.
[2022-01-15] MEDS: METOPROLOL TARTRATE 50 MG TAB PO SCH (16:28)
[2022-01-15] MEDS: DONEPEZIL 5 MG TAB PO SCH (20:49)
[2022-01-16] MEDS: ESCITALOPRAM 5 MG TAB PO SCH (08:09)
[2022-01-16] MEDS: METOPROLOL TARTRATE 50 MG TAB PO SCH ×2 (08:09→16:02)
[2022-01-16] MEDS: TAMSULOSIN 0.4 MG CAP.ER.24H PO SCH (08:09)
[2022-01-16] MEDS: PHENYTOIN SODIUM EXTENDED 100 MG CAP PO SCH ×2 (08:09→16:02)
[2022-01-16] MEDS: GABAPENTIN 100 MG CAP PO SCH ×2 (08:10→16:01)
[2022-01-16] MEDS: ISOSORBIDE MONONITRATE ER 30 MG TAB.ER.24H PO SCH (08:10)
[2022-01-16] MEDS: APIXABAN 5 MG TAB PO SCH (08:10)
[2022-01-16] MEDS: PANTOPRAZOLE 40 MG TABLET PO SCH (08:10)
[2022-01-16] MEDS: IPRATROPIUM-ALBUTEROL 3 ML NEB INHALATION SCH ×3 (08:25→15:32)
[2022-01-16] MEDS ORDERED: SENNOSIDES-DOCUSATE SODIUM 1 EACH TAB PO SCH (09:00)
[2022-01-16] MEDS ORDERED: FUROSEMIDE 40 MG TAB PO SCH (09:00)
--- NOTE | 2022-01-16 13:31 | P.DS ---
Providers Date of admission: 01/15/22 08:42 Expected date of discharge: 01/16/22 Attending physician: Garcia Rojas, Consults: 01/13/22 15:19 Consult Physician Urgent Consulting Provider: Roel Lopez Consult Reason/Comments: Medical management Do you want consulting provider notified?: Yes 01/14/22 17:20 Consult Physician Routine Consulting Provider: Narinder Frye Consult Reason/Comments: afib with rvr,mild chf, Do you want consulting provider notified?: Yes Primary care physician: Roel Lopez Hospital Course: Date of admission: 01/13/2022 Date of discharge: 01/16/2022 Admission diagnosis: Left knee pain; tibial plateau fracture Discharge diagnosis: Same Attending physician: Dr. Rojas Surgical procedures: None Brief history: Patient is a 86-year-old male with a history of left knee pain and tibial plateau fracture status post fall. At this point patient has failed conservative treatment measures and has opted to proceed with conservative management via knee immobilizer. Hospital course: Details of patient's surgery can be found in operative report. Patient tolerated the procedure well and was subsequently transported to orthopedic floor. Patient's orthopeidc and medical care was provided daily. Patient had daily laboratory tests performed for evaluation of overall blood counts. Patient had daily physical therapy to include strengthening range of motion as well as education with walker ambulation. Patient was treated with Eliquis for their postoperative DVT prophylaxis during their inpatient stay. Given patient's otherwise satisfactory course and having met physical therapy goals, plan is to discharge patient to subacute rehab at [facility] Discharge condition/disposition: Patient will be discharged to [facility] in stable condition. Discharge medications: Instructions are given on resumption of patient's normal daily medications per primary care recommendation, in addition patient will be prescribed gabapentin; Tylenol; Eliquis Discharge instructions: 1. Wound care and infection precautions, keep incision dry and covered while showering, no lotions, creams, moisturizers. No soaking, tubs, pools, hottubs. Do not scrub over the incision. 2. Non-weight bearing left lower extremity. toe-touch only when transferring. 3. Ice and elevate when necessary. Do not exceed 20 minutes per hour with ice pack. 4. knee immobilizer on at all times on LLE 5. Nursing care. 6. Physical therapy including home CPM. 7. Pain meds and anticoagulants per prescription. 8. Pain medication has potential to cause constipation. Increase oral fluid and fiber intake. Contact primary care provider if you have not had a bowel movement within 48 hours after discharge 9. No anti-inflammatory medication until discussed at first post operative visit, this including Motrin, Aleve, Mobic, Diclofenac, Aspirin. 10. Follow up in office at [address] Garcia Rojas 11. Follow up with your primary care doctor 7-10 days after discharge. 12. Contact [facility] with any questions, . Assessment: Left knee pain; tibial plateau fracture Procedures: None Patient Condition at Discharge: Good Plan - Discharge Summary Discharge Rx Participant: No New Discharge Prescriptions: New Metoprolol Tartrate [Lopressor] 50 mg PO BID@0800,1600 #60 tab Pantoprazole [Protonix] 40 mg PO AC-BRKFST #30 tab Ipratropium-Albuterol Nebulize [Duoneb 0.5 mg-3 mg/3 ml Soln] 3 ml INHALATION RT-QID each Sennosides-Docusate Sodium [Senokot-S] 2 tab PO BID #60 tablet Gabapentin 300 mg PO BID #24 cap Furosemide [Lasix] 40 mg PO DAILY #30 tab Acetaminophen Tab [Tylenol] 650 mg PO Q6HR PRN tab PRN Reason: Fever And/ Or Pain Ipratropium-Albuterol Nebulize [Duoneb 0.5 mg-3 mg/3 ml Soln] 3 ml INHALATION Q4H PRN each PRN Reason: Shortness Of Breath Or Wheezing Gabapentin 300 mg PO BID 3 Days #6 cap Continue Tamsulosin [Flomax] 0.4 mg PO DAILY Apixaban [Eliquis] 5 mg PO BID #60 tab Phenytoin Sodium Extended [Dilantin] 200 mg PO TID Isosorbide Mononitrate ER [Imdur] 30 mg PO DAILY #30 tab.er.24h Escitalopram [Lexapro] 5 mg PO DAILY Gabapentin [Neurontin] 200 mg PO TID Donepezil [Aricept] 5 mg PO HS Discontinued Metoprolol Tartrate [Lopressor] 25 mg PO DAILY Discharge Medication List Tamsulosin [Flomax] 0.4 mg PO DAILY 09/23/16 [History] Apixaban [Eliquis] 5 mg PO BID #60 tab 09/26/16 [Rx] Phenytoin Sodium Extended [Dilantin] 200 mg PO TID 11/21/17 [History] Isosorbide Mononitrate ER [Imdur] 30 mg PO DAILY #30 tab.er.24h 07/18/19 [Rx] Escitalopram [Lexapro] 5 mg PO DAILY 07/25/20 [History] Donepezil [Aricept] 5 mg PO HS 01/13/22 [History] Gabapentin [Neurontin] 200 mg PO TID 01/13/22 [History] Acetaminophen Tab [Tylenol] 650 mg PO Q6HR PRN tab 01/15/22 [Rx] Furosemide [Lasix] 40 mg PO DAILY #30 tab 01/15/22 [Rx] Metoprolol Tartrate [Lopressor] 50 mg PO BID@0800,1600 #60 tab 01/15/22 [Rx] Pantoprazole [Protonix] 40 mg PO AC-BRKFST #30 tab 01/15/22 [Rx] Gabapentin 300 mg PO BID #24 cap 01/16/22 [Rx] Gabapentin 300 mg PO BID 3 Days #6 cap 01/16/22 [Rx] Ipratropium-Albuterol Nebulize [Duoneb 0.5 mg-3 mg/3 ml Soln] 3 ml INHALATION Q4H PRN each 01/16/22 [Rx] Ipratropium-Albuterol Nebulize [Duoneb 0.5 mg-3 mg/3 ml Soln] 3 ml INHALATION RT-QID each 01/16/22 [Rx] Sennosides-Docusate Sodium [Senokot-S] 2 tab PO BID #60 tablet 01/16/22 [Rx] Follow up Appointment(s)/Referral(s): Roel Lopez DO [Primary Care Provider] - 1 Week (after dc from [facility]) Garcia Rojas DO [Doctor of Osteopathic Medicine] - 2 Weeks Sridevi Henning MD [STAFF PHYSICIAN] - 1 Week Ambulatory/Diagnostic Orders: Complete Blood Count w/diff [LAB.AMB] Time Frame: 3 Days, Location: None Selected Patient Instructions/Handouts: Fall Prevention for Older Adults (ED) Activity/Diet/Wound Care/Special Instructions: Natividad cbc,bmp in 3 days Discharge Disposition: TRANSFER TO SNF/ECF
--- NOTE | 2022-01-16 13:54 | P.PN ---
Subjective Progress Note Date: 01/16/22 - History of Present Illness (01/14/22) This is an 86-year-old gentleman with past medical history of CAD, NV, cardiac stents, atrial fibrillation, COPD, hypertension, hyperlipidemia, renal disease, seizure disorder, deafness, recent of spouse, initially presented to the ER on 01/11/2022, reported he has been walking with a cane, was running fast down 5 steps, take to help his neighbor, slipped and landed on his knee after the fifth step. Multiple radiology studies performed reporting no acute fractures as per orthopedic surgery review and patient was discharged home. Patient returned to the ER with increased pain and weakness of the affected extremity. Knee CT reported fractured posterior aspect of the tibial intercondylar region, possibly representing avulsion fracture at the tibial attachment of the PCL. Evaluated by orthopedic surgery, recommending conservative treatment at this time. Telemetry atrial fibrillation with heart rates in the low 100s, hyperte nsive, maintaining O2 sats of high 90s on 3 L nasal cannula. Chest x-ray reporting persistent signs of pulmonary edema/CHF with no progressive pulmonary consolidation. Echo of 08/24/20 reported severe global hypokinesis of L3, severely impaired EF between 20 and 25%, severely dilated LA, moderate mitral regurgitation, mild pulmonary hypertension. On admission, atrial fibrillation with heart rates in the 137, hypertensive with blood pressure 160/109, tachypnea, restrain a 22, satting 96% on room air. Currently requiring 3 L nasal cannula and maintaining O2 sats in the 90s. 01/15/2022 patient declining echo this morning .evaluated by cardiology, meds further adjusted and cleared for discharge. Beta jono increased by cardiology. At rest heart rates in the low 50s, with minimal stimulation increases to 60. PCP updated Supriya; patient is now willing to go to subacute rehab. Pain controlled, and knee immobilizer present. Consuming 100% of diet with no nausea vomiting, passing flatus. Denies chest pain, palpitations or shortness of breath. Maintaining O2 sats in the 90s on room air. Objective - Vital Signs Vital signs: Vital Signs Temp 97.9 F 01/16/22 07:54 Pulse 60 01/16/22 08:39 Resp 17 01/16/22 08:00 BP 154/95 01/16/22 07:54 Pulse Ox 95 01/16/22 08:25 FiO2 21 06/16/22 08:25 Intake & Output 01/15/22 01/16/22 01/16/22 18:59 06:59 18:59 Intake Total 600 120 Balance 600 120 Intake: Oral 600 120 Other: # Voids 2 # Bowel Movements 1 - Exam PHYSICAL EXAM: VITAL SIGNS: [As above] GENERAL: Alert and oriented 3, Sitting up in bed, no acute distress, HEENT: Conjunctivae normal. eyes normal. Oral mucosa moist. NECK: Supple, No JVD. CARDIOVASCULAR: S1, S2 irregular,systolic murmur. RESPIRATION: Breath sounds diminished in the bases. No rhonchi. ABDOMEN: Soft, nontender . No guarding. no masses palpable. Bowel sounds heard. LEGS: Left knee immobilizer present ,No clubbing, no cyanosis. NERVOUS SYSTEM: Cranial N 2-12 grossly normal.No focal deficits. Skin: warm and dry, no rash - Labs CBC & Chem 7: 01/15/22 05:27 01/15/22 05:27 Labs: Abnormal Lab Results - Last 24 Hours (Table) 01/15/22 01/15/22 Range/Units 05:27 05:27 RBC 3.89 L (4.40-5.60) X 10*6/uL Hgb 12.0 L (13.0-17.0) g/dL Hct 36.3 L (39.6-50.0) % Carbon Dioxide 18.1 L (20.0-27.5) mmol/L BUN/Creatinine Ratio 22.43 H (12.00-20.00) Ratio Glucose 113 H (70-110) mg/dL Calcium 8.3 L (8.7-10.3) mg/dL Microbiology - Last 24 Hours (Table) 01/13/22 12:15 Blood Culture - Preliminary Blood No Growth after 48 hours 01/13/22 12:00 Blood Culture - Preliminary Blood No Growth after 48 hours Assessment and Plan Assessment: Left knee posterior tibial plateau fracture with effusion, secondary to recent fall Actively grieving,spouse recently passed Chronic persistent A. fib with RVR, anticoagulated on Eliquis Mild acute on Chronic CHF exacerbation, systolic dysfunction, EF , echo 08/24/20 severe global hypokinesis and LV, severely dilated LA, EF 20-25%. Acute hypoxic respiratory failure secondary to the above, improved Hypertension Mild pulmonary hypertension COPD CAD, history of NV, stents Hyperlipidemia Seizure disorder Obesity, BMI 35.6 History of DVTs/PE Pulmonary hypertension Plan: Continue on current medication regime, monitoring and symptomatic treatment. Patient medically cleared for discharge to subacute rehab. The impression and plan of care has been dictated as directed. : I performed a history and examination of this patient, discussed the same with the dictator. I agree with the dictator's note ,documented as a scribe. Any additional findings or plans will be noted.
[2022-01-16 14:19] VITALS: BP 106/74; RESP 18; TEMP 98.4
[2022-01-16 15:36] VITALS: PULSE 72
--- NOTE | 2022-01-16 15:45 | P.PN ---
Subjective Progress Note Date: 01/16/22 Principal diagnosis: left knee pain; tibial plateau fracture Patient seen at bedside this morning resting, sitting up in chair with knee immobilizer on left lower extremity. Patient has been two-person assist with physical therapy. He is nonweightbearing on the left lower extremity with toe- touch to transfer. Patient says he is ready to be discharged to rehab today. Patient denies chest pain, fever, shortness breath, nausea, lying, change in vision, loss of bowel/bladder control. Objective - Vital Signs Vital signs: Vital Signs Temp 97.9 F 01/16/22 07:54 Pulse 60 01/16/22 11:43 Resp 17 01/16/22 08:00 BP 164/72 01/16/22 09:05 Pulse Ox 95 01/16/22 08:25 FiO2 21 01/16/22 08:25 Intake & Output 01/15/22 01/16/22 01/16/22 18:59 06:59 18:59 Intake Total 600 240 Balance 600 240 Intake: Oral 600 240 Other: # Voids 2 # Bowel Movements 1 - Exam Some discoloration present on the anterior aspect of the left knee especially in the suprapatellar region. Minimal effusion of left knee. Positive for ecchymo sis. Negative for any open fractures, significant nodules. Sensation is intact, symmetric, bilaterally throughout the lower and upper extremities. Some tenderness to patient around the patella and the proximal tibial region. Patient has full range of motion bilateral upper extremities. Range of motion is limited in the left lower extremity due to the injury. Patient is able to move digits of foot and plantar/dorsiflexion of ankles. Bilateral upper extremity motor exam 5/5. Right lower extremity motor exam 5/5. Left lower extremity exam limited due to injury. Neurovascular status intact bilaterally. Radial pulses 2+, intact bilaterally. Cap refill under 3 seconds in digits in upper extremities. Negative Homans bilaterally. - Labs CBC & Chem 7: 01/15/22 05:27 01/15/22 05:27 Labs: Microbiology - Last 24 Hours (Table) 01/13/22 12:15 Blood Culture - Preliminary Blood No Growth after 48 hours 01/13/22 12:00 Blood Culture - Preliminary Blood No Growth after 48 hours Assessment and Plan Assessment: 1. Left knee pain; tibial plateau fracture Plan: 1. Left knee pain; tibial plateau fracture - patient seen at bedside this morning. Keep knee immobilizer on at all times on left lower extremity. Pain medications as needed. Discharge to [facility] for rehab today. Follow up in office at 2 weeks 2. Appreciate medical management 3. Pain management - gabapentin; Tylenol 4. DVT prophylaxis - Eliquis 5. GI prophylaxis - Protonix 6. PT/OT - nonweightbearing left lower extremity. Toe-touch transfers 7. Encourage incentive spirometer use. 8. Discharge planning - discharge to [facility] for rehab today Time with Patient: Less than 30
== END 2022-01-16 17:14 | DRG 562 ==
LOC: EC 10:32 → 4SSUR 15:22 → OBSVTOIN 01-15 08:42
PROVIDERS: ADMIT Orthopaedic Surgery; ATTEND Orthopaedic Surgery
DX: S82.142A Displaced bicondylar fracture of left tibia, initial encounter for closed fracture (principal); I50.23 Acute on chronic systolic (congestive) heart failure; J96.01 Acute respiratory failure with hypoxia; I48.21 Permanent atrial fibrillation; I11.0 Hypertensive heart disease with heart failure; E66.9 Obesity, unspecified; E78.5 Hyperlipidemia, unspecified; I08.1 Rheumatic disorders of both mitral and tricuspid valves; H91.92 Unspecified hearing loss, left ear; G40.909 Epilepsy, unspecified, not intractable, without status epilepticus; H91.90 Unspecified hearing loss, unspecified ear; R29.6 Repeated falls; I25.10 Atherosclerotic heart disease of native coronary artery without angina pectoris; I25.2 Old myocardial infarction; I27.20 Pulmonary hypertension, unspecified; J44.9 Chronic obstructive pulmonary disease, unspecified; W01.0XXA Fall on same level from slipping, tripping and stumbling without subsequent striking against object, initial encounter; Y92.009 Unspecified place in unspecified non-institutional (private) residence as the place of occurrence of the external cause; Z68.35 Body mass index [BMI] 35.0-35.9, adult; Z79.01 Long term (current) use of anticoagulants; Z79.899 Other long term (current) drug therapy; Z86.011 Personal history of benign neoplasm of the brain; Z86.711 Personal history of pulmonary embolism; Z86.718 Personal history of other venous thrombosis and embolism; Z87.442 Personal history of urinary calculi; Z95.5 Presence of coronary angioplasty implant and graft; Z88.0 Allergy status to penicillin; Z87.01 Personal history of pneumonia (recurrent); Z87.19 Personal history of other diseases of the digestive system; Z91.81 History of falling
CPT/HCPCS: 36415; 71046; 80048; 80053; 83605; 83735; 84484; 85025; 85610; 85730; 87040; 93005; 94640; 94760; 96361; 96374; 96375; 99285

== ENCOUNTER → 2022-04-25 | Outpatient (CLI) | payer OTHER ==
[2022-04-25 13:01] LABS: African American GFR (CKD) >90 (>60 ml/min/1.73 sqM); Blood Urea Nitrogen 10 mg/dL (9-20); Non-African American GFR(CKD) >90 (>60 ml/min/1.73 sqM)
--- NOTE | 2022-04-25 16:11 | CT ---
EXAMINATION TYPE: CT abdomen pelvis wo/w con DATE OF EXAM: 04/25/2022 COMPARISON: 01/06/2022 HISTORY: lower leg pain CT DLP: 3356 mGycm CONTRAST: CT scan of the abdomen and pelvis is performed with Oral Contrast and with IV Contrast, patient injec adalid with 70 mL of Isovue 300. FINDINGS: LUNG BASES-: No visible nodule. No infiltrate. There is cardiomegaly. LIVER/GB: The gallbladder surgically absent. No space occupying hepatic lesion. Biliary tree is of no rmal caliber. PANCREAS: No inflammation. No distinct mass. SPLEEN: No splenic enlargement. No lesion seen. ADRENALS: No nodule. No thickening. KIDNEYS/BLADDER: No hydronephrosis. No nephrolithiasis. No distinct renal mass. Urinary bladder g rossly unremarkable. BOWEL: Normal appendix. Normal bowel caliber. No inflammation. GENITAL ORGANS: No gross abnormality. LYMPH NODES: No greater than 1cm abdominal or pelvic lymph nodes are appreciated. AORTA: No significant abnormality. OSSEOUS STRUCTURES: No significant abnormality is seen. OTHER: No significant additional abnormality is seen. IMPRESSION: 1. No acute intra-abdominal process.
== END | disposition home or self-care (01) ==
LOC: RADCTMAIN 12:20
DX: R10.2 Pelvic and perineal pain (principal)
CPT/HCPCS: 82565; 84520; 74178; 36415; Q9967

== ENCOUNTER → 2022-07-30 | Outpatient (CLI) | payer OTHER ==
--- NOTE | 2022-07-30 14:32 | XR ---
EXAMINATION TYPE: XR knee complete LT DATE OF EXAM: 07/30/2022 1:52 PM INDICATION: Patient age:Male; 87 years old; Reason for study: [id number]; [facility]. COMPARISON: [id number] TECHNIQUE: The Right knee(s) was examined in Frontal, lateral and oblique projections. FINDINGS: No evidence of any acute osseous pathology, joint space narrowing, soft tissue swelling, or joint effusion is noted. Tricompartmental osteophyte formation involving the femoral condyles, tibial plateau and patella. IMPRESSION: 1. No acute osseous pathology. 2. Mild tricompartmental osteoarthritic changes.
== END | disposition home or self-care (01) ==
LOC: RADXRMAIN 13:31
PROVIDERS: ATTEND Family Medicine
DX: M17.12 Unilateral primary osteoarthritis, left knee (principal)

== ENCOUNTER 2022-08-21 08:33 | Emergency (ER) | payer MEDICARE, BC ==
[2022-08-21] MEDS ORDERED: HYDROmorphone 0.5 MG/0.5 ML SYRINGE IVP STA (08:53)
[2022-08-21] MEDS ORDERED: ONDANSETRON 4 MG/2 ML VIAL IVP STA (08:53)
[2022-08-21 09:16] VITALS: RESP 20
--- NOTE | 2022-08-21 09:31 | ED ---
General Adult HPI - General Stated complaint: fall - pain Time Seen by Provider: 08/21/22 08:39 Source: patient, EMS, RN notes reviewed Mode of arrival: EMS Limitations: language barrier (Hard of hearing), physical limitation - History of Present Illness Initial comments: This 87-year-old male presents emergency Department with chief complaint of fall. Patient states that this happens morning but family reported to EMS that this may have happened a couple days ago. Patient states that he is trying to get to his chair when he missed it falling onto his back. Patient complains of mid back pain from the fall denies any head injury no loss conscious denies any hip, lower extremity pain. Patient is brought in by EMS did not receive any pain medication prior arrival patient did note to have urine soaked clothes. Unclear when this happened. - Related Data Home Medications Medication Instructions Recorded Confirmed Tamsulosin [Flomax] 0.4 mg PO DAILY 09/23/16 08/21/22 Donepezil [Aricept] 5 mg PO HS 01/13/22 08/21/22 Atorvastatin [Lipitor] 80 mg PO HS 08/21/22 08/21/22 Bilberry Extract 250mg 250 mg PO DAILY 08/21/22 08/21/22 Escitalopram [Lexapro] 20 mg PO DAILY 08/21/22 08/21/22 Gabapentin 300 mg PO BID PRN 08/21/22 08/21/22 Metoprolol Tartrate [Lopressor] 25 mg PO DAILY 08/21/22 08/21/22 Nystatin 100,000 Unit/gm Powd 1 applic TOPICAL BID PRN 08/21/22 08/21/22 [Mycostatin Powder] Pantoprazole [Protonix] 40 mg PO DAILY 08/21/22 08/21/22 Phenytoin Sodium Extended 600 mg PO BID 08/21/22 08/21/22 [Phenytek] Previous Rx's Medication Instructions Recorded Apixaban [Eliquis] 5 mg PO BID #60 tab 09/26/16 Isosorbide Mononitrate ER [Imdur] 30 mg PO DAILY #30 tab.er.24h 07/18/19 Allergies Allergy/AdvReac Type Severity Reaction Status Date / Time Penicillins Allergy Rash/Hives Verified 08/21/22 12:29 Review of Systems ROS Statement: Those systems with pertinent positive or pertinent negative responses have been documented in the HPI. ROS Other: All systems not noted in ROS Statement are negative. 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 Past trauma Past Anesthesia/Blood Transfusion Reactions: No Reported Reaction Date of Last Stent Placement:: 2014 Past Psychological History: No Psychological Hx Reported Smoking Status: Never smoker Past Alcohol Use History: None Reported Past Drug Use History: None Reported - Past Family History Mother Additional Family Medical History / Comment(s): Mother had mental health problems. Father Family Medical History: No Reported History General Exam Limitations: language barrier, physical limitation General appearance: alert, in no apparent distress Head exam: Present: atraumatic, normocephalic, normal inspection Eye exam: Present: normal appearance, PERRL, EOMI. Absent: scleral icterus, conjunctival injection, periorbital swelling ENT exam: Present: normal exam, normal oropharynx, mucous membranes moist Neck exam: Present: normal inspection, full ROM. Absent: tenderness, meningismus, lymphadenopathy Respiratory exam: Present: normal lung sounds bilaterally. Absent: respiratory distress, wheezes, rales, rhonchi, stridor Cardiovascular Exam: Present: regular rate, normal rhythm, normal heart sounds. Absent: systolic murmur, diastolic murmur, rubs, gallop, clicks GI/Abdominal exam: Present: soft, normal bowel sounds. Absent: distended, tenderness, guarding, rebound, rigid Extremities exam: Present: normal inspection, full ROM, normal capillary refill. Absent: tenderness, pedal edema, joint swelling, calf tenderness Back exam: Present: tenderness. Absent: full ROM Neurological exam: Present: alert, oriented X3, reflexes normal. Absent: motor sensory deficit Course Vital Signs 08/21/22 08/21/22 09:08 13:48 Temperature 98.7 F 97.6 F Pulse Rate 90 92 Respiratory 20 20 Rate Blood Pressure 121/72 126/93 O2 Sat by Pulse 95 97 Oximetry Medical Decision Making - Medical Decision Making Was pt. sent in by a medical professional or institution (, [facility], EMERGENCY OPERATOR, urgent care, hospital, or usp...) When possible be specific @ -No Did you speak to anyone other than the patient for history (EMS, parent, family, police, friend...)? What history was obtained from this source @ -EMS provided prehospital complaining, treatment and past medical history along with medications Did you review nursing and triage notes (agree or disagree)? Why? @ -I reviewed and agree with nursing and triage notes Were old charts reviewed (outside hosp., previous admission, EMS record, old EKG, old radiological studies, urgent care reports/EKG's, usp records)? Report findings @ -No old charts were reviewed Differential Diagnosis (chest pain, altered mental status, abdominal pain women, abdominal pain men, vaginal bleeding, weakness, fever, dyspnea, syncope, headache, dizziness, GI bleed, back pain, seizure, CVA, palpatations, mental health)? @ -Thoracic fracture, rib fracture, pneumothorax, generalized weakness, UTI, sepsis, this list is not all-inclusive EKG interpreted by me (3pts min.). @ -As above X-rays interpreted by me (1pt min.). @ -[Chest x-ray shows no acute process CT interpreted by me (1pt min.). @ -CT of the chest shows no rib fracture, pneumothorax, thoracic fracture U/S interpreted by me (1pt. min.). @ -None done What testing was considered but not performed or refused? (CT, X-rays, U/S, labs)? Why? @ -None What meds were considered but not given or refused? Why? @ -None Did you discuss the management of the patient with other professionals (professionals i.e. , PA, EMERGENCY OPERATOR, lab, RT, psych nurse, social service agency director, childcare director, teacher, port patrol officer, case mgr)? Give summary @ -No Was smoking cessation discussed for >3mins.? @ -No Was critical care preformed (if so, how long)? @ -No Were there social determinants of health that impacted care today? How? (Homelessness, low income, unemployed, alcoholism, drug addiction, transportation, low edu. Level, literacy, decrease access to med. care, care home, rehab)? @ -No Was there de-escalation of care discussed even if they declined (Discuss DNR or withdrawal of care, Hospice)? DNR status @ -No What co-morbidities impacted this encounter? (DM, HTN, Smoking, COPD, CAD, Cancer, CVA, ARF, Chemo, Hep., AIDS, mental health diagnosis, sleep apnea, morbid obesity)? @ -Diabetes hypertension A. fib Was patient admitted / discharged? Hospital course, mention meds given and route, prescriptions, significant lab abnormalities, going to OR and other pertinent info. @ -Discharged patient presented for a fall imaging did not reveal any acute fractures no evidence of UTI or any reason for his ongoing weakness. I did offer admission given patient's complaint of pain and difficulty and bleeding patient declined stating that he has family at home to take care of him family is contacted and agreed this plan. Undiagnosed new problem with uncertain prognosis? @ -No Drug Therapy requiring intensive monitoring for toxicity (Heparin, Nitro, Insulin, Cardizem)? @ -No Were any procedures done? @ -No Diagnosis/symptom? @ -Back contusion Acute, or Chronic, or Acute on Chronic? @ -Acute Uncomplicated (without systemic symptoms) or Complicated (systemic symptoms)? @ -Uncomplicated Side effects of treatment? @ -No Exacerbation, Progression, or Severe Exacerbation? @ -No Poses a threat to life or bodily function? How? (Chest pain, [place], [place], pneumonia, PE, COPD, DKA, ARF, appy, cholecystitis, CVA, Diverticulitis, Homicidal, Suicidal, threat to staff... and all critical care pts) @ -No - Lab Data Result diagrams: 08/21/22 09:14 08/21/22 09:14 Lab Results 08/21/22 08/21/22 08/21/22 Range/Units 09:14 09:14 12:49 WBC 7.6 (3.8-10.6) k/uL RBC 3.85 L (4.30-5.90) m/uL Hgb 12.3 L (13.0-17.5) gm/dL Hct 35.3 L (39.0-53.0) % MCV 91.5 (80.0-100.0) fL MCH 31.9 (25.0-35.0) pg MCHC 34.8 (31.0-37.0) g/dL RDW 14.6 (11.5-15.5) % Plt Count 116 L (150-450) k/uL MPV 8.1 Neutrophils % 79 % Lymphocytes % 12 % Monocytes % 6 % Eosinophils % 1 % Basophils % 0 % Neutrophils # 6.0 (1.3-7.7) k/uL Lymphocytes # 0.9 L (1.0-4.8) k/uL Monocytes # 0.5 (0-1.0) k/uL Eosinophils # 0.1 (0-0.7) k/uL Basophils # 0.0 (0-0.2) k/uL Sodium 140 (137-145) mmol/L Potassium 4.2 (3.5-5.1) mmol/L Chloride 107 (98-107) mmol/L Carbon Dioxide 27 (22-30) mmol/L Anion Gap 6 mmol/L BUN 10 (9-20) mg/dL Creatinine 0.57 L (0.66-1.25) mg/dL Est GFR (CKD-EPI)AfAm >90 (>60 ml/min/1.73 sqM) Est GFR (CKD-EPI)NonAf >90 (>60 ml/min/1.73 sqM) Glucose 139 H (74-99) mg/dL Calcium 8.0 L (8.4-10.2) mg/dL Magnesium 1.6 (1.6-2.3) mg/dL Total Bilirubin 0.8 (0.2-1.3) mg/dL AST 20 (17-59) U/L ALT 22 (4-49) U/L Alkaline Phosphatase 117 (38-126) U/L C-Reactive Protein 3.8 H (<1.0) mg/dL Total Protein 6.2 L (6.3-8.2) g/dL Albumin 3.7 (3.5-5.0) g/dL Urine Color Yellow Urine Appearance Clear (Clear) Urine pH 6.0 (5.0-8.0) Ur Specific [place] 1.010 (1.001-1.035) Urine Protein Negative (Negative) Urine Glucose (UA) Negative (Negative) Urine Ketones Negative (Negative) Urine Blood Negative (Negative) Urine Nitrite Negative (Negative) Urine Bilirubin Negative (Negative) Urine Urobilinogen <2.0 (<2.0) mg/dL Ur Leukocyte Esterase Negative (Negative) Disposition Clinical Impression: Fall, Back contusion Disposition: HOME SELF-CARE Condition: Stable Instructions (If sedation given, give patient instructions): Back Pain (ED) Additional Instructions: Please return to the Emergency Department if symptoms worsen or any other concerns. Is patient prescribed a controlled substance at d/c from ED?: No Referrals: Roel Lopez DO [Primary Care Provider] - 1-2 days Time of Disposition: 13:16
[2022-08-21 09:42] LABS: ALT 22 U/L (4-49); AST 20 U/L (17-59); African American GFR (CKD) >90 (>60 ml/min/1.73 sqM); Albumin 3.7 g/dL (3.5-5.0); Alkaline Phosphatase 117 U/L (38-126); Anion Gap 6 mmol/L; Blood Urea Nitrogen 10 mg/dL (9-20); C Reactive Protein 3.8 mg/dL (<1.0); Carbon Dioxide 27 mmol/L (22-30); Chloride 107 mmol/L (98-107); Glucose 139 mg/dL (74-99); Magnesium 1.6 mg/dL (1.6-2.3); Non-African American GFR(CKD) >90 (>60 ml/min/1.73 sqM); Potassium 4.2 mmol/L (3.5-5.1); Sodium 140 mmol/L (137-145); Total Bilirubin 0.8 mg/dL (0.2-1.3); Total Protein 6.2 g/dL (6.3-8.2)
[2022-08-21 09:43] LABS: Basophils % (A) 0 %; Eosinophils # (A) 0.1 k/uL (0-0.7); Eosinophils % (A) 1 %; HCT 35.3 % (39.0-53.0); HGB 12.3 gm/dL (13.0-17.5); Lymphocytes # (A) 0.9 k/uL (1.0-4.8); Lymphocytes % (A) 12 %; MCH 31.9 pg (25.0-35.0); MCHC 34.8 g/dL (31.0-37.0); MCV 91.5 fL (80.0-100.0); Mean Platelet Volume 8.1; Monocytes # (A) 0.5 k/uL (0-1.0); Monocytes % (A) 6 %; Neutrophils % (A) 79 %; Platelet Count 116 k/uL (150-450); RBC 3.85 m/uL (4.30-5.90); RDW 14.6 % (11.5-15.5); WBC 7.6 k/uL (3.8-10.6)
--- NOTE | 2022-08-21 09:47 | XR ---
EXAMINATION TYPE: XR chest 1V DATE OF EXAM: 08/21/2022 9:40 AM COMPARISON: Chest radiographs from 01/13/2022 TECHNIQUE: XR chest 1V Portable AP radiograph of the chest. CLINICAL INDICATION:Male, 87 years old with history of pain; FINDINGS: Lungs/Pleura: Low lung volumes are present. There is no evidence of pleural effusion, focal consolida tion, or pneumothorax. Pulmonary vascularity: Unremarkable. Heart/mediastinum: Cardiomediastinal silhouette is unremarkable. Musculoskeletal: No acute osseous pathology. IMPRESSION: Low lung volumes, no acute cardiopulmonary disease/process.
[2022-08-21] MEDS ORDERED: SODIUM CHLORIDE 0.9% 1,000 ML IV ONE (11:04)
--- NOTE | 2022-08-21 11:22 | CT ---
EXAMINATION TYPE: CT chest wo con CT DLP: 584.1 mGycm, Automated exposure control for dose reduction was used. DATE OF EXAM: 08/21/2022 11:04 AM COMPARISON: CT chest 07/09/2019 CLINICAL INDICATION:Male, 87 years old with history of trauma, UPPER BACK PAIN TECHNIQUE: Multiple axial images were obtained through the chest. Sagittal and coronal reformats were created for review. Contrast used: none. Oral contrast used: none. FINDINGS: LUNGS/ PLEURA: The lung parenchyma appears unremarkable. No focal consolidation, pneumothorax or ple ural effusion. AIRWAY: Patent and unremarkable. HEART: The heart is enlarged for size, coronary artery atherosclerosis is present. MEDIASTINUM: No gross evidence of adenopathy. VASCULATURE: No aortic aneurysm. MUSCULOSKELETAL: No acute osseous abnormalities, mild multilevel disc degeneration changes. SOFT TISSUES/LYMPH NODES: Unremarkable. LOWER NECK: No significant findings. UPPER ABDOMEN: Suspected cystic duct remnant within the gallbladder fossa with surgical clips present . Bilateral renal cysts. IMPRESSION: 1. No evidence for fracture. Mild multilevel disc degeneration changes are present. 2. Moderate to marked cardiomegaly 3. Coronary artery disease.
[2022-08-21 13:04] LABS: Appearance,Urine Clear (Clear); Bilirubin,Urine Negative (Negative); Blood,Urine Negative (Negative); Color,Urine Yellow; Glucose,Urine (UA) Negative (Negative); Ketones,Urine Negative (Negative); Leukocyte Esterase,Urine Negative (Negative); Nitrite,Urine Negative (Negative); Protein,Urine Negative (Negative); Urobilinogen,Urine <2.0 mg/dL (<2.0)
[2022-08-21] MEDS ORDERED: ACET/COD 300 MG/30 MG STARTER PACK 6 TAB BTL PO STA (13:16)
[2022-08-21 13:51] VITALS: BP 126/93; PULSE 92; TEMP 97.6
== END 2022-08-21 13:52 | disposition home or self-care (01) ==
LOC: EC 08:33
DX: S30.0XXA Contusion of lower back and pelvis, initial encounter (principal); I48.91 Unspecified atrial fibrillation; I25.10 Atherosclerotic heart disease of native coronary artery without angina pectoris; J44.9 Chronic obstructive pulmonary disease, unspecified; E78.5 Hyperlipidemia, unspecified; I10 Essential (primary) hypertension; I25.2 Old myocardial infarction; Z88.0 Allergy status to penicillin; Z79.899 Other long term (current) drug therapy; W07.XXXA Fall from chair, initial encounter
CPT/HCPCS: 36415; 80053; 83735; 85025; 86140; 81003; 71045; 71250; 99285; 96374; 96375; 96361 ×3; J2405; J1170

== ENCOUNTER 2022-11-13 10:06 | Emergency (ER) | payer OTHER ==
[2022-11-13 10:25] VITALS: BP 123/79; PULSE 69; RESP 16; TEMP 98
--- NOTE | 2022-11-13 10:52 | ED ---
General Adult HPI - General Chief complaint: Urogenital Stated complaint: male Time Seen by Provider: 11/13/22 10:12 Source: patient Mode of arrival: EMS - History of Present Illness Initial comments: Dictation was produced using [employer] dictation software. please excuse any grammatical, word or spelling errors. Chief Complaint: 87-year-old male presents to the emergency department with groin rash History of Present Illness: Patient is a 87-year-old male has multiple comorbidities presents emergency Department with groin rash. Patient states the rash has been there for 3-4 weeks. States that over the last several days it's been getting more red and more painful. He's been trying to apply using cream however symptoms not improving. Patient lives at home by himself. He states that he does have assistance with family lives nearby. Denies any fever, chills or night sweats. The ROS documented in this emergency department record has been reviewed and confirmed by me. Those systems with pertinent positive or negative responses have been documented in the HPI. All other systems are other negative and/or noncontributory. - Related Data Home Medications Medication Instructions Recorded Confirmed Tamsulosin [Flomax] 0.4 mg PO DAILY 09/23/16 08/21/22 Donepezil [Aricept] 5 mg PO HS 01/13/22 08/21/22 Atorvastatin [Lipitor] 80 mg PO HS 08/21/22 08/21/22 Bilberry Extract 250mg 250 mg PO DAILY 08/21/22 08/21/22 Escitalopram [Lexapro] 20 mg PO DAILY 08/21/22 08/21/22 Gabapentin 300 mg PO BID PRN 08/21/22 08/21/22 Metoprolol Tartrate [Lopressor] 25 mg PO DAILY 08/21/22 08/21/22 Nystatin 100,000 Unit/gm Powd 1 applic TOPICAL BID PRN 08/21/22 08/21/22 [Mycostatin Powder] Pantoprazole [Protonix] 40 mg PO DAILY 08/21/22 08/21/22 Phenytoin Sodium Extended 600 mg PO BID 08/21/22 08/21/22 [Phenytek] Previous Rx's Medication Instructions Recorded Apixaban [Eliquis] 5 mg PO BID #60 tab 09/26/16 Isosorbide Mononitrate ER [Imdur] 30 mg PO DAILY #30 tab.er.24h 07/18/19 Clotrimazole Cream [Lotrimin Cream] 1 applic TOPICAL BID #15 gm 11/13/22 Allergies Allergy/AdvReac Type Severity Reaction Status Date / Time Penicillins Allergy Rash/Hives Verified 08/21/22 12:29 Review of Systems ROS Statement: Those systems with pertinent positive or pertinent negative responses have been documented in the HPI. ROS Other: All systems not noted in ROS Statement are negative. 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 Past trauma Past Anesthesia/Blood Transfusion Reactions: No Reported Reaction Date of Last Stent Placement:: 2014 Past Psychological History: No Psychological Hx Reported Smoking Status: Never smoker Past Alcohol Use History: None Reported Past Drug Use History: None Reported - Past Family History Mother Additional Family Medical History / Comment(s): Mother had mental health problems. Father Family Medical History: No Reported History General Exam - General Exam Comments Initial Comments: PHYSICAL EXAM: General Impression: Alert and oriented x3, not in acute distress HEENT: Normocephalic atraumatic, extra-ocular movements intact, pupils equal and reactive to light bilaterally, mucous membranes moist. Cardiovascular: Heart regular rate and rhythm Chest: Able to complete full sentences, no retractions, no tachypnea Abdomen: abdomen soft, non-tender, non-distended, no organomegaly Musculoskeletal: Pulses present and equal in all extremities, no peripheral edema Motor: no focal deficits noted Neurological: CN II-XII grossly intact, no focal motor or sensory deficits noted Skin: Extensive groin erythema and scaling extending from the the bilateral in tertriginous folds of the hip to the lower pannus and perineum. Nonindurated, no drainage. Painful to touch Psych: Normal affect and mood Course Vital Signs 11/13/22 10:21 Temperature 98 F Pulse Rate 69 Respiratory 16 Rate Blood Pressure 123/79 O2 Sat by Pulse 97 Oximetry Medical Decision Making - Medical Decision Making Was pt. sent in by a medical professional or institution (, PA, BODY MAKER MACHINE SETTER, urgent care, hospital, or snf...) When possible be specific @ -No Did you speak to anyone other than the patient for history (EMS, parent, family, police, friend...)? What history was obtained from this source @ -EMS states that patient had testicular redness and swelling Did you review nursing and triage notes (agree or disagree)? Why? @ -I reviewed and agree with nursing and triage notes Were old charts reviewed (outside hosp., previous admission, EMS record, old EKG, old radiological studies, urgent care reports/EKG's, snf records)? Report findings @ -No old charts were reviewed Differential Diagnosis (chest pain, altered mental status, abdominal pain women, abdominal pain men, vaginal bleeding, musculoskeletal, weakness, fever, dyspnea, syncope, headache, dizziness, GI bleed, back pain, seizure, CVA, palpatations, mental health)? @ -Necrotizing fasciitis, varicocele, CHF affecting the scrotum, scrotal cellulitis EKG interpreted by me (3pts min.). @ -None done X-rays interpreted by me (1pt min.). @ -None done CT interpreted by me (1pt min.). @ -None done U/S interpreted by me (1pt. min.). @ -None done What testing was considered but not performed or refused? (CT, X-rays, U/S, l abs)? Why? @ -None What meds were considered but not given or refused? Why? @ -None Did you discuss the management of the patient with other professionals (professionals i.e. , PA, BODY MAKER MACHINE SETTER, lab, RT, psych nurse, social work administrator, cementer machine joiner, teacher, [employer] plans staff officer, caser)? Give summary @ -No Was smoking cessation discussed for >3mins.? @ -No Was critical care preformed (if so, how long)? @ -No Were there social determinants of health that impacted care today? How? (Homelessness, low income, unemployed, alcoholism, drug addiction, transportation, low edu. Level, literacy, decrease access to med. care, [place] [facility], rehab)? @ -No Was there de-escalation of care discussed even if they declined (Discuss DNR or withdrawal of care, Hospice)? DNR status @ -No What co-morbidities impacted this encounter? (DM, HTN, Smoking, COPD, CAD, [place], CVA, ARF, Chemo, Hep., AIDS, mental health diagnosis, sleep apnea, morbid obesity)? @ -None Was patient admitted / discharged? Hospital course, mention meds given and route, prescriptions, significant lab abnormalities, going to OR and other pertinent info. @ -87-year-old male presents to emergency department with clinical presentation consistent with tinea cruris. Laboratory evaluations unremarkable. No leukocytosis. Patient's symptoms improved after IV analgesics. Patient will be discharged with topical clotrimazole. Plan was discussed with patient's daughter Who is listed in his demographic as a next of kin. Undiagnosed new problem with uncertain prognosis? @ -No Drug Therapy requiring intensive monitoring for toxicity (Heparin, Nitro, Insulin, Cardizem)? @ -No Were any procedures done? @ -No Diagnosis/symptom? Acute, or Chronic, or Acute on Chronic? Uncomplicated (without systemic symptoms) or Complicated (systemic symptoms)? @ -1. Acute Uncomplicated tinea cruris Side effects of treatment? @ -No Exacerbation, Progression, or Severe Exacerbation? @ -No Poses a threat to life or bodily function? How? (Chest pain, [place], [place], pneumonia, PE, COPD, DKA, ARF, appy, cholecystitis, CVA, Diverticulitis, Homicidal, Suicidal, threat to staff... and all critical care pts) @ -No - Lab Data Result diagrams: 11/13/22 11:09 11/13/22 11:09 Lab Results 11/13/22 11/13/22 Range/Units 11:09 11:09 WBC 10.1 (3.8-10.6) k/uL RBC 4.10 L (4.30-5.90) m/uL Hgb 13.1 (13.0-17.5) gm/dL Hct 38.4 L (39.0-53.0) % MCV 93.7 (80.0-100.0) fL MCH 31.9 (25.0-35.0) pg MCHC 34.1 (31.0-37.0) g/dL RDW 14.1 (11.5-15.5) % Plt Count 197 (150-450) k/uL MPV 7.4 Neutrophils % 68 % Lymphocytes % 22 % Monocytes % 6 % Eosinophils % 2 % Basophils % 0 % Neutrophils # 6.9 (1.3-7.7) k/uL Lymphocytes # 2.2 (1.0-4.8) k/uL Monocytes # 0.6 (0-1.0) k/uL Eosinophils # 0.2 (0-0.7) k/uL Basophils # 0.0 (0-0.2) k/uL Sodium 140 (137-145) mmol/L Potassium 4.0 (3.5-5.1) mmol/L Chloride 107 (98-107) mmol/L Carbon Dioxide 24 (22-30) mmol/L Anion Gap 9 mmol/L BUN 10 (9-20) mg/dL Creatinine 0.47 L (0.66-1.25) mg/dL Est GFR (CKD-EPI)AfAm >90 (>60 ml/min/1.73 sqM) Est GFR (CKD-EPI)NonAf >90 (>60 ml/min/1.73 sqM) Glucose 105 H (74-99) mg/dL Calcium 7.8 L (8.4-10.2) mg/dL Disposition Clinical Impression: Tinea cruris Disposition: HOME SELF-CARE Condition: Good Instructions (If sedation given, give patient instructions): Richard Christensen (ED) Prescriptions: Clotrimazole Cream [Lotrimin Cream] 1 applic TOPICAL BID #15 gm Is patient prescribed a controlled substance at d/c from ED?: No Referrals: Roel Lopez DO [Primary Care Provider] - 1-2 days Time of Disposition: 12:17
[2022-11-13] MEDS ORDERED: MORPHINE SULFATE 2 MG/ML SYRINGE IV STA (11:11)
[2022-11-13 11:23] LABS: Basophils % (A) 0 %; Eosinophils # (A) 0.2 k/uL (0-0.7); Eosinophils % (A) 2 %; HCT 38.4 % (39.0-53.0); HGB 13.1 gm/dL (13.0-17.5); Lymphocytes # (A) 2.2 k/uL (1.0-4.8); Lymphocytes % (A) 22 %; MCH 31.9 pg (25.0-35.0); MCHC 34.1 g/dL (31.0-37.0); MCV 93.7 fL (80.0-100.0); Mean Platelet Volume 7.4; Monocytes # (A) 0.6 k/uL (0-1.0); Monocytes % (A) 6 %; Neutrophils # (A) 6.9 k/uL (1.3-7.7); Neutrophils % (A) 68 %; Platelet Count 197 k/uL (150-450); RDW 14.1 % (11.5-15.5); WBC 10.1 k/uL (3.8-10.6)
[2022-11-13 11:41] LABS: African American GFR (CKD) >90 (>60 ml/min/1.73 sqM); Anion Gap 9 mmol/L; Blood Urea Nitrogen 10 mg/dL (9-20); Calcium 7.8 mg/dL (8.4-10.2); Carbon Dioxide 24 mmol/L (22-30); Chloride 107 mmol/L (98-107); Glucose 105 mg/dL (74-99); Non-African American GFR(CKD) >90 (>60 ml/min/1.73 sqM); Sodium 140 mmol/L (137-145)
[2022-11-13] MEDS ORDERED: FLUCONAZOLE 150 MG TAB PO STA (12:22)
[2022-11-13] MEDS ORDERED: traMADol 50 MG STARTER PACK 3 TAB BTL PO STA (12:27)
== END 2022-11-13 13:11 | disposition home or self-care (01) ==
LOC: EC 10:06
DX: B35.6 Tinea cruris (principal); I10 Essential (primary) hypertension; I25.10 Atherosclerotic heart disease of native coronary artery without angina pectoris; I25.2 Old myocardial infarction; J44.9 Chronic obstructive pulmonary disease, unspecified; E78.5 Hyperlipidemia, unspecified; G40.909 Epilepsy, unspecified, not intractable, without status epilepticus; Z79.899 Other long term (current) drug therapy; Z88.0 Allergy status to penicillin
CPT/HCPCS: 36415; 80048; 85025; 99283; 96374; J2270

== ENCOUNTER 2022-12-28 09:47 | Inpatient (IN) | payer OTHER, MEDICARE ==
--- NOTE | 2022-12-28 10:47 | ED ---
Male Urogenital HPI - General Chief complaint: Urogenital Stated complaint: Swollen Testicles Time Seen by Provider: 12/28/22 10:35 Source: patient, EMS, RN notes reviewed, old records reviewed Mode of arrival: EMS Limitations: no limitations - History of Present Illness Initial comments: 87-year-old male, alert and oriented 4, presents to the emergency room with testicular swelling for 1 day and persistent bilateral groin redness and swelling. States Dr. Lopez has been giving him a cream with no improvement. Patient denies any other rashes. No fevers. No cough, chest pain or difficulty breathing. Patient states he does live at home by himself and ambulates with a cane. Does report that he fell 3 months ago and sustained a fracture of the left hip. Denies any recent falls. States he does take eliquis daily. Has a history of coronary artery disease, atrial fibrillation, COPD, hyperlipidemia, hypertension, ME, renal disease, seizure disorder, MD Complaint: testicle pain, testicle swelling, other (groin rash) -: week(s) Location: right testicle, left testicle, right inguinal region, left inguinal region Radiation: none Consistency: constant Improves with: none Reports: denies other symptoms - Related Data Home Medications Medication Instructions Recorded Confirmed Phenytoin Sodium Extended 300 mg PO BID 12/28/22 12/28/22 [Dilantin] Previous Rx's Medication Instructions Recorded Apixaban [Eliquis] 5 mg PO BID #60 tab 09/26/16 Allergies Allergy/AdvReac Type Severity Reaction Status Date / Time Penicillins Allergy Rash/Hives Verified 12/28/22 13:38 Review of Systems ROS Statement: Those systems with pertinent positive or pertinent negative responses have been documented in the HPI. ROS Other: All systems not noted in ROS Statement are negative. 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 Past trauma Past Anesthesia/Blood Transfusion Reactions: No Reported Reaction Date of Last Stent Placement:: 2014 Past Psychological History: No Psychological Hx Reported Smoking Status: Never smoker Past Alcohol Use History: None Reported Past Drug Use History: None Reported - Past Family History Mother Additional Family Medical History / Comment(s): Mother had mental health problems. Father Family Medical History: No Reported History General Exam Limitations: no limitations General appearance: alert, in no apparent distress Head exam: Present: atraumatic Eye exam: Present: normal appearance. Absent: scleral icterus, conjunctival injection, periorbital swelling ENT exam: Present: mucous membranes moist Neck exam: Present: full ROM. Absent: tenderness, meningismus Respiratory exam: Present: normal lung sounds bilaterally. Absent: respiratory distress, accessory muscle use Cardiovascular Exam: Present: regular rate GI/Abdominal exam: Present: soft. Absent: distended, tenderness, guarding, rebound, rigid exam: Present: scrotal swelling. Absent: testicular tenderness, urethral discharge Extremities exam: Present: normal capillary refill, other (swelling bilateral upper legs, no pitting pedal edema). Absent: tenderness Back exam: Absent: tenderness, CVA tenderness (R), CVA tenderness (L), paraspinal tenderness, vertebral tenderness, rash noted Neurological exam: Present: alert, oriented X3 Psychiatric exam: Present: normal affect, normal mood Skin exam: Present: warm, dry, normal color. Absent: cyanosis, diaphoretic, petechiae, pallor Course Vital Signs 12/28/22 12/28/22 12/28/22 09:49 09:53 11:18 Temperature 97.9 F Pulse Rate 88 86 100 Respiratory 18 20 20 Rate Blood Pressure 170/91 156/86 114/95 O2 Sat by Pulse 99 96 99 Oximetry 12/28/22 12/28/22 12:00 14:00 Temperature Pulse Rate 89 100 Respiratory 20 20 Rate Blood Pressure 159/86 149/90 O2 Sat by Pulse 96 96 Oximetry Medical Decision Making - Medical Decision Making Was pt. sent in by a medical professional or institution (TONY Gómez, SERVICE CENTER ASSISTANT, urgent care, hospital, or snf...) When possible be specific @ -No Did you speak to anyone other than the patient for history (EMS, parent, family, police, friend...)? What history was obtained from this source @ -No Did you review nursing and triage notes (agree or disagree)? Why? @ -I reviewed and agree with nursing and triage notes Were old charts reviewed (outside hosp., previous admission, EMS record, old EKG, old radiological studies, urgent care reports/EKG's, snf records)? Report findings @ Previous labs and BNP along with last ER visit reviewed Differential Diagnosis (chest pain, altered mental status, abdominal pain women, abdominal pain men, vaginal bleeding, weakness, fever, dyspnea, syncope, headache, dizziness, GI bleed, back pain, seizure, CVA, palpatations, mental health, musculoskeletal)? @ -CHF, intertrigo, cellulitis EKG interpreted by me (3pts min.). @ -n/a X-rays interpreted by me (1pt min.). @ -yes, Chest x-ray interpreted by me shows no evidence of focal consolidation. CT interpreted by me (1pt min.). @ -None done U/S interpreted by me (1pt. min.). @ -None done What testing was considered but not performed or refused? (CT, X-rays, U/S, labs)? Why? @ -None What meds were considered but not given or refused? Why? @ -None Did you discuss the management of the patient with other professionals (professionals i.e. TONY Gómez, SERVICE CENTER ASSISTANT, lab, RT, psych nurse, 7th grade social studies teacher, mill tender [place], teacher, licensed mortgage loan officer, embedded case manager)? Give summary @ -No Was smoking cessation discussed for >3mins.? @ -No Was critical care preformed (if so, how long)? @ -No Were there social determinants of health that impacted care today? How? (Homelessness, low income, unemployed, alcoholism, drug addiction, transportation, low edu. Level, literacy, decrease access to med. care, usp, rehab)? @ -No Was there de-escalation of care discussed even if they declined (Discuss DNR or withdrawal of care, Hospice)? DNR status @ -No What co-morbidities impacted this encounter? (DM, HTN, Smoking, COPD, CAD, Cancer, CVA, ARF, Chemo, Hep., AIDS, mental health diagnosis, sleep apnea, morbid obesity)? @ -Coronary artery disease, atrial fibrillation, COPD, hyperlipidemia, hype rtension, ME, renal disease, seizure disorder Was patient admitted / discharged? Hospital course, mention meds given and route, prescriptions, significant lab abnormalities, going to OR and other pertinent info. @ -Admitted 87-year-old male, alert and oriented 4, presents with complaints of testicular swelling for 1 day. States has been being treated for rash to his groin with a cream prescribed by Dr. Lopez with no improvement. Upon exam is significant intertrigo bilateral groins and lateral pannus folds. Patient complains of pain with palpation. He was seen November 13 for same groin rash and at that time was present for 3-4 weeks. Testicles significantly swollen grapefruit size with penile edema. Patient is able to urinate without difficulty. No fevers. No chest pain or difficulty breathing. Lung sounds are clear. Patient did sustain a left hip fracture 3 months ago and on eliquis. Denies any recent falls. Chest x-ray interpreted by me shows no evidence of focal consolidation. Radiologist interpretation cardiomegaly and mild congestion correlate with the BNP for congestive heart failure. CBC unremarkable. Potassium low at 3.2 and he was given oral supplementation. BNP 2130. Urinalysis shows leukocyte esterase with 25 white blood cells however patient denies any dysuria. Urine was sent for culture. Patient was given oral antibiotics for cellulitis. Will be admitted with congestive heart failure. Patient is agreeable to this plan of care. Case discussed with Dr. Woods Undiagnosed new problem with uncertain prognosis? @ -No Drug Therapy requiring intensive monitoring for toxicity (Heparin, Nitro, Insulin, Cardizem)? @ -No Were any procedures done? @ -No Diagnosis/symptom? @ -CHF, intertrigo, Cellulitis Acute, or Chronic, or Acute on Chronic? @ -Acute Uncomplicated (without systemic symptoms) or Complicated (systemic symptoms)? @ -Complicated Side effects of treatment? @ -No Exacerbation, Progression, or Severe Exacerbation? @ -No Poses a threat to life or bodily function? How? (Chest pain, USA, ME, pneumonia, PE, COPD, DKA, ARF, appy, cholecystitis, CVA, Diverticulitis, Homicidal, Suicidal, threat to staff... and all critical care pts) @ -No - Lab Data Result diagrams: 12/28/22 11:09 12/28/22 11:09 Lab Results 12/28/22 12/28/22 12/28/22 Range/Units 11:09 11:09 11:09 WBC 9.7 (3.8-10.6) k/uL RBC 4.20 L (4.30-5.90) m/uL Hgb 13.0 (13.0-17.5) gm/dL Hct 38.6 L (39.0-53.0) % MCV 92.0 (80.0-100.0) fL MCH 31.0 (25.0-35.0) pg MCHC 33.6 (31.0-37.0) g/dL RDW 15.2 (11.5-15.5) % Plt Count 175 (150-450) k/uL MPV 8.5 Neutrophils % 66 % Lymphocytes % 27 % Monocytes % 4 % Eosinophils % 2 % Basophils % 0 % Neutrophils # 6.3 (1.3-7.7) k/uL Lymphocytes # 2.6 (1.0-4.8) k/uL Monocytes # 0.4 (0-1.0) k/uL Eosinophils # 0.2 (0-0.7) k/uL Basophils # 0.0 (0-0.2) k/uL PT (9.0-12.0) sec INR (<1.2) APTT (22.0-30.0) sec Sodium 145 (137-145) mmol/L Potassium 3.2 L (3.5-5.1) mmol/L Chloride 107 (98-107) mmol/L Carbon Dioxide 27 (22-30) mmol/L Anion Gap 11 mmol/L BUN 9 (9-20) mg/dL Creatinine 0.46 L (0.66-1.25) mg/dL Est GFR (CKD-EPI)AfAm >90 (>60 ml/min/1.73 sqM) Est GFR (CKD-EPI)NonAf >90 (>60 ml/min/1.73 sqM) Glucose 109 H (74-99) mg/dL Calcium 8.1 L (8.4-10.2) mg/dL Total Bilirubin 0.8 (0.2-1.3) mg/dL AST 21 (17-59) U/L ALT 18 (4-49) U/L Alkaline Phosphatase 140 H (38-126) U/L NT-Pro-B Natriuret Pep 2130 pg/mL Total Protein 6.6 (6.3-8.2) g/dL Albumin 3.7 (3.5-5.0) g/dL Urine Color Urine Appearance (Clear) Urine pH (5.0-8.0) Ur Specific [place] (1.001-1.035) Urine Protein (Negative) Urine Glucose (UA) (Negative) Urine Ketones (Negative) Urine Blood (Negative) Urine Nitrite (Negative) Urine Bilirubin (Negative) Urine Urobilinogen (<2.0) mg/dL Ur Leukocyte Esterase (Negative) Urine RBC (0-5) /hpf Urine WBC (0-5) /hpf Ur Squamous Epith Cells (0-4) /hpf Urine Mucus (None) /hpf 12/28/22 12/28/22 Range/Units 11:09 11:11 WBC (3.8-10.6) k/uL RBC (4.30-5.90) m/uL Hgb (13.0-17.5) gm/dL Hct (39.0-53.0) % MCV (80.0-100.0) fL MCH (25.0-35.0) pg MCHC (31.0-37.0) g/dL RDW (11.5-15.5) % Plt Count (150-450) k/uL MPV Neutrophils % % Lymphocytes % % Monocytes % % Eosinophils % % Basophils % % Neutrophils # (1.3-7.7) k/uL Lymphocytes # (1.0-4.8) k/uL Monocytes # (0-1.0) k/uL Eosinophils # (0-0.7) k/uL Basophils # (0-0.2) k/uL PT 10.5 (9.0-12.0) sec INR 1.0 (<1.2) APTT 24.1 (22.0-30.0) sec Sodium (137-145) mmol/L Potassium (3.5-5.1) mmol/L Chloride (98-107) mmol/L Carbon Dioxide (22-30) mmol/L Anion Gap mmol/L BUN (9-20) mg/dL Creatinine (0.66-1.25) mg/dL Est GFR (CKD-EPI)AfAm (>60 ml/min/1.73 sqM) Est GFR (CKD-EPI)NonAf (>60 ml/min/1.73 sqM) Glucose (74-99) mg/dL Calcium (8.4-10.2) mg/dL Total Bilirubin (0.2-1.3) mg/dL AST (17-59) U/L ALT (4-49) U/L Alkaline Phosphatase (38-126) U/L NT-Pro-B Natriuret Pep pg/mL Total Protein (6.3-8.2) g/dL Albumin (3.5-5.0) g/dL Urine Color Red Urine Appearance Cloudy (Clear) Urine pH 6.0 (5.0-8.0) Ur Specific [place] 1.023 (1.001-1.035) Urine Protein 2+ H (Negative) Urine Glucose (UA) Negative (Negative) Urine Ketones Negative (Negative) Urine Blood Large H (Negative) Urine Nitrite Negative (Negative) Urine Bilirubin Negative (Negative) Urine Urobilinogen <2.0 (<2.0) mg/dL Ur Leukocyte Esterase Small H (Negative) Urine RBC >182 H (0-5) /hpf Urine WBC 25 H (0-5) /hpf Ur Squamous Epith Cells 4 (0-4) /hpf Urine Mucus Many H (None) /hpf Disposition Clinical Impression: CHF (congestive heart failure), Intertrigo, Cellulitis of groin Disposition: ADMITTED IP TO THIS HOSP Decision Date: 12/28/22 Decision Time: 12:35
[2022-12-28 11:23] LABS: Basophils % (A) 0 %; Eosinophils # (A) 0.2 k/uL (0-0.7); Eosinophils % (A) 2 %; HCT 38.6 % (39.0-53.0); Lymphocytes # (A) 2.6 k/uL (1.0-4.8); Lymphocytes % (A) 27 %; MCHC 33.6 g/dL (31.0-37.0); Mean Platelet Volume 8.5; Monocytes # (A) 0.4 k/uL (0-1.0); Monocytes % (A) 4 %; Neutrophils # (A) 6.3 k/uL (1.3-7.7); Neutrophils % (A) 66 %; Platelet Count 175 k/uL (150-450); RDW 15.2 % (11.5-15.5); WBC 9.7 k/uL (3.8-10.6)
[2022-12-28 11:28] LABS: ALT 18 U/L (4-49); AST 21 U/L (17-59); African American GFR (CKD) >90 (>60 ml/min/1.73 sqM); Albumin 3.7 g/dL (3.5-5.0); Alkaline Phosphatase 140 U/L (38-126); Anion Gap 11 mmol/L; Blood Urea Nitrogen 9 mg/dL (9-20); Calcium 8.1 mg/dL (8.4-10.2); Carbon Dioxide 27 mmol/L (22-30); Chloride 107 mmol/L (98-107); Glucose 109 mg/dL (74-99); Non-African American GFR(CKD) >90 (>60 ml/min/1.73 sqM); Potassium 3.2 mmol/L (3.5-5.1); Sodium 145 mmol/L (137-145); Total Bilirubin 0.8 mg/dL (0.2-1.3); Total Protein 6.6 g/dL (6.3-8.2)
[2022-12-28] MEDS ORDERED: POTASSIUM CHLORIDE ER 20 MEQ TAB.ER PO STA ×2 (11:41→15:12)
[2022-12-28 11:47] LABS: Appearance,Urine Cloudy (Clear); Bilirubin,Urine Negative (Negative); Blood,Urine Large (Negative); Color,Urine Red; Glucose,Urine (UA) Negative (Negative); Ketones,Urine Negative (Negative); Leukocyte Esterase,Urine Small (Negative); Mucus,Urine Many /hpf; Nitrite,Urine Negative (Negative); Protein,Urine 2+ (Negative); RBC,Urine >182 /hpf (0-5); Specific Gravity,Urine 1.023 (1.001-1.035); Squamous Epithelial Cell,Urine 4 /hpf (0-4); Urobilinogen,Urine <2.0 mg/dL (<2.0); WBC,Urine 25 /hpf (0-5)
--- NOTE | 2022-12-28 11:59 | XR ---
EXAMINATION TYPE: XR chest 2V DATE OF EXAM: 12/28/2022 11:52 AM COMPARISON: Chest radiographs from 08/21/2022 TECHNIQUE: XR chest 2V Frontal and lateral views of the chest. CLINICAL INDICATION:Male, 87 years old with history of r/o chf; FINDINGS: Lungs/Pleura: There is no evidence of pleural effusion, focal consolidation, or pneumothorax. Pulmonary vascularity: Pulmonary vascular congestion. Heart/mediastinum: Cardiomediastinal silhouette is prominent in size. Musculoskeletal: No acute osseous pathology. IMPRESSION: Cardiomegaly and mild pulmonary vascular congestion. Correlate with BNP for congestive heart failure.
[2022-12-28 12:03] LABS: Partial Thromboplastin Time 24.1 sec (22.0-30.0); Prothrombin Time 10.5 sec (9.0-12.0)
[2022-12-28] MEDS ORDERED: FUROSEMIDE 10 MG/ML 4 ML VIAL IV STA (12:35)
[2022-12-28] MEDS ORDERED: NALOXONE 0.4 MG/ML 1 ML VIAL IV PRN (12:43)
[2022-12-28] MEDS: CLINDAMYCIN 150 MG CAP PO SCH ×2 (13:02→21:31)
[2022-12-28] MEDS ORDERED: Potassium Replacement Protocol 1 EACH MISC MISCELLANE PRN (17:00)
--- NOTE | 2022-12-28 17:09 | P.HPIM ---
History of Present Illness H&P Date: 12/28/22 Chief Complaint: Scrotal Swelling Patient is a 87-year-old male with a known history of atrial fibrillation on anticoagulation with liquids, hypertension, hyperlipidemia, history of stent placement coronary artery disease, chronic CHF with systolic dysfunction ejection fraction 20-25%, moderate MR, COPD, history of seizures presents to ER scrotal swelling and bilateral groin redness and swelling since yesterday. Patient states that he was using exercise bicycle at home when she started noticing redness and swelling. Patient was seen by his primary care patient was given cream without improvement. He also having increased swelling of the scrotum. Otherwise denied any complaints of chest pain or shortness of breath. Increased leg swelling. Patient usually walks with a cane. Denied any falls recently. Patient had a fracture of the left hip about 3 months ago. Patient is on anticoagulation for atrial fibrillation. Denied any fever or chills. No cough or sputum production. Chest x-ray showed cardiomegaly and mild pulmonary vascular congestion. Correlate with BNP for CHF. Laboratory data WBC is 9.7 hemoglobin 13.0 and platelets 175 Sodium 140 potassium 3.2 chloride 107 bicarb is 27 BUN 9 and creatinine 0.46 and blood sugar 109 8.1 and ProBNP 2130 Urinalysis Showed Large Blood and Small Leukocyte Esterase with Elevated RBCs and WBC Is 25. Review of Systems Constitutional: Patient denies any fever or chills . No generalized weakness or weight loss. Abdomen: Patient denied nausea vomiting and diarrhea and abdominal pain. Scrotal swelling. Leg swelling. Cardiovascular: Patient denies any chest pain or short of breath no palpitations. Respiratory: patient denied any cough is from production. No shortness of breath Neurologic: Patient denied any numbness or tingling headache. Musculoskeletal: Patient denies any complaints of joint swelling or deformity. Skin: Patient does have redness and swelling in the left groin. Psychiatric: Negative Endocrine: No heat or cold intolerance. No recent weight gain. Genitourinary: No dysuria or hematuria. 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 Past trauma Past Anesthesia/Blood Transfusion Reactions: No Reported Reaction Date of Last Stent Placement:: 2014 Past Psychological History: No Psychological Hx Reported Smoking Status: Never smoker Past Alcohol Use History: None Reported Past Drug Use History: None Reported - Past Family History Mother Additional Family Medical History / Comment(s): Mother had mental health problems. Father Family Medical History: No Reported History Medications and Allergies Home Medications Medication Instructions Recorded Confirmed Type Apixaban [Eliquis] 5 mg PO BID #60 tab 09/26/16 12/28/22 Rx Phenytoin Sodium Extended 300 mg PO BID 12/28/22 12/28/22 History [Dilantin] Allergies Allergy/AdvReac Type Severity Reaction Status Date / Time Penicillins Allergy Rash/Hives Verified 12/28/22 13:38 Physical Exam Vitals: Vital Signs Temp Pulse Resp BP Pulse Ox 12/28/22 14:25 89 20 145/90 95 12/28/22 14:00 100 20 149/90 96 12/28/22 12:00 89 20 159/86 96 12/28/22 11:18 100 20 114/95 99 12/28/22 09:53 86 20 156/86 96 12/28/22 09:49 97.9 F 88 18 170/91 99 Intake and Output 12/28/22 12/28/22 12/28/22 06:59 14:59 22:59 Output Total 900 Balance -900 Output: Urine 900 Other: Voiding Method Diaper Weight 90.718 kg PHYSICAL EXAMINATION: Patient is lying in the bed comfortably, no acute distress, awake alert and oriented.. HEENT: Normocephalic. Neck is supple. Pupils reactive. Nostrils clear. Oral cavity is moist. Neck reveals no JVD, carotid bruits, or thyromegaly. CHEST EXAMINATION: Trachea is central. Symmetrical expansion. Minimal left basilar crackles. No wheezing. CARDIAC: Normal S1, S2 with no gallops. No murmurs ABDOMEN: Soft. Bowel sounds normal. No organomegaly. No abdominal bruits. Extremities: reveal no edema. No clubbing or cyanosis Neurologically awake, alert, oriented 2-3 with well-coordinated movements. No focal deficits noted Skin: . Patient does have left groin rash and swelling. Scrotal swelling. No other skin lesions. Psychiatric: Coperative. Could not be sure she completely Musculoskeletal: No joint swelling or deformity. Normal range of motion. Results CBC & Chem 7: 12/28/22 11:09 12/28/22 11:09 Labs: Abnormal Lab Results - Last 24 Hours (Table) 12/28/22 12/28/22 12/28/22 Range/Units 11:09 11:09 11:11 RBC 4.20 L (4.30-5.90) m/uL Hct 38.6 L (39.0-53.0) % Potassium 3.2 L (3.5-5.1) mmol/L Creatinine 0.46 L (0.66-1.25) mg/dL Glucose 109 H (74-99) mg/dL Calcium 8.1 L (8.4-10.2) mg/dL Alkaline Phosphatase 140 H (38-126) U/L Urine Protein 2+ H (Negative) Urine Blood Large H (Negative) Ur Leukocyte Esterase Small H (Negative) Urine RBC >182 H (0-5) /hpf Urine WBC 25 H (0-5) /hpf Urine Mucus Many H (None) /hpf Thrombosis Risk Factor Assmnt - DVT/VTE Prophylaxis DVT/VTE Prophylaxis: Pharmacologic Prophylaxis ordered Assessment and Plan Assessment: Acute on chronic CHF with systolic dysfunction ejection fraction 20-25% Worsening leg swelling and scrotal swelling Redness and swelling in the left groin greater than right likely due to recent use of home bicycle exercise machine. Possible cellulitis. History of seizure disorder Hypertension Hyperlipidemia Coronary artery disease history of stent placement Moderate MR, COPD not in exacerbation Hypokalemia. Replaced. GI prophylaxis. Patient is already on anticoagulation. Plan: Patient will be continued on telemetry monitoring. Was given a dose of IV Lasix in the ER. Continue with 20 mg IV every 12 and monitor renal functions closely. Continue with antibiotics, Cleocin. Replace potassium per protocol. Follow up closely. Time with Patient: Greater than 30
--- NOTE | 2022-12-28 17:39 | XR ---
EXAMINATION TYPE: XR femur LT DATE OF EXAM: 12/28/2022 5:22 PM INDICATION: Patient age:Male; 87 years old; Reason for study: leg pain; COMPARISON: Left knee radiographs 07/30/2022 TECHNIQUE: The left femur was examined in AP and lateral projections. FINDINGS: Osteopenia. No evidence for fracture or dislocation. Moderate osteoarthritic changes of the left hip and knee joints. Soft tissues are within normal limits. Phleboliths are incidentally noted within the pelvis. Vascular calcifications of the thigh. IMPRESSION: 1. No acute osseous pathology. 2. 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
[2022-12-28] MEDS: FUROSEMIDE 10 MG/ML 2 ML VIAL IV SCH (21:29)
[2022-12-28] MEDS: NYSTATIN 100,000 UNIT/GM POWD 15 GM TOPICAL SCH (21:29)
[2022-12-28] MEDS: APIXABAN 5 MG TAB PO SCH (21:30)
[2022-12-28] MEDS: PHENYTOIN SODIUM EXTENDED 100 MG CAP PO SCH (21:31)
[2022-12-29] MEDS: CLINDAMYCIN 150 MG CAP PO SCH ×3 (08:20→20:50)
[2022-12-29] MEDS: APIXABAN 5 MG TAB PO SCH ×2 (08:20→20:49)
[2022-12-29] MEDS: NYSTATIN 100,000 UNIT/GM POWD 15 GM TOPICAL SCH ×2 (08:21→20:49)
[2022-12-29] MEDS: PHENYTOIN SODIUM EXTENDED 100 MG CAP PO SCH ×2 (08:21→20:50)
[2022-12-29] MEDS: FUROSEMIDE 10 MG/ML 2 ML VIAL IV SCH ×2 (08:21→20:50)
--- NOTE | 2022-12-29 10:14 | US ---
EXAMINATION TYPE: US venous doppler duplex LE LT DATE OF EXAM: 12/29/2022 9:58 AM COMPARISON: NONE CLINICAL INDICATION: Male, 87 years old with history of pain in left thigh; Left leg pain SIDE PERFORMED: Left TECHNIQUE: The lower extremity deep venous system is examined utilizing real time linear array sonog keesha with graded compression, doppler sonography and color-flow sonography. VESSELS IMAGED: Common Femoral Vein Deep Femoral Vein Greater Saphenous Vein * Femoral Vein Popliteal Vein Small Saphenous Vein * Proximal Calf Veins (* superficial vessels) Very limited exam, pt unable to tolerate probe pressure, pt constantly moving during exam, high anx iety, hyperventilating Left Leg: Limited color flow images show no evidence of DVT from left EIV to mid popliteal vein. Le ft deep fem vein, distal popliteal vein, and proximal calf veins not visualized IMPRESSION: Suboptimal study. Visualized portions show no convincing evidence for acute DVT. Repeat s reiddy advised when patient more clinically stable.
[2022-12-29 11:42] LABS: Basophils # (A) 0.03 X 10*3/uL (0.00-0.10); Basophils % (A) 0.4 %; Eosinophils # (A) 0.18 X 10*3/uL (0.04-0.35); Eosinophils % (A) 2.4 %; HCT 33.5 % (39.6-50.0); HGB 11.2 g/dL (13.0-17.0); Immature Grans, Automated 0.3 %; Lymphocytes # (A) 1.99 X 10*3/uL (0.90-5.00); Lymphocytes % (A) 26.5 %; MCH 30.9 pg (27.0-32.0); MCHC 33.4 g/dL (32.0-37.0); MCV 92.3 fL (80.0-97.0); Mean Platelet Volume 9.4 fL (9.5-12.2); Monocytes # (A) 0.57 X 10*3/uL (0.20-1.00); Monocytes % (A) 7.6 %; NRBC Per 100 WBC 0 /100 WBCS (0.0-0.0); Neutrophils # (A) 4.72 X 10*3/uL (1.80-7.70); Neutrophils % (A) 62.8 %; Platelet Count 159 X 10*3/uL (140-440); RBC 3.63 X 10*6/uL (4.40-5.60); RDW 14.8 % (11.5-14.5); WBC 7.51 X 10*3/uL (4.50-10.00)
[2022-12-29 11:48] LABS: African American GFR (CKD) 106.5 (60.0-200.0); Anion Gap 11.4 mmol/L (10.00-18.00); BUN/Creat Ratio 13.12 Ratio (12.00-20.00); Blood Urea Nitrogen 7.7 mg/dL (9.0-27.0); Calcium 8.2 mg/dL (8.7-10.3); Carbon Dioxide 24.3 mmol/L (20.0-27.5); Non-African American GFR(CKD) 91.9 (60.0-200.0); Potassium 3.8 mmol/L (3.5-5.5)
--- NOTE | 2022-12-29 21:43 | P.PN ---
Subjective Patient is a 87-year-old male with a known history of atrial fibrillation on anticoagulation with liquids, hypertension, hyperlipidemia, history of stent placement coronary artery disease, chronic CHF with systolic dysfunction ejection fraction 20-25%, moderate MR, COPD, history of seizures presents to ER scrotal swelling and bilateral groin redness and swelling since yesterday. Patient states that he was using exercise bicycle at home when she started noticing redness and swelling. Patient was seen by his primary care patient was given cream without improvement. He also having increased swelling of the scrotum. Otherwise denied any complaints of chest pain or shortness of breath. Increased leg swelling. Patient usually walks with a cane. Denied any falls recently. Patient had a fracture of the left hip about 3 months ago. Patient is on anticoagulation for atrial fibrillation. Denied any fever or chills. No cough or sputum production. Chest x-ray showed cardiomegaly and mild pulmonary vascular congestion. Correlate with BNP for CHF. Laboratory data WBC is 9.7 hemoglobin 13.0 and platelets 175 Sodium 140 potassium 3.2 chloride 107 bicarb is 27 BUN 9 and creatinine 0.46 and blood sugar 109 8.1 and ProBNP 2130 Urinalysis Showed Large Blood and Small Leukocyte Esterase with Elevated RBCs and WBC Is 25. 12/29/2022 Patient bilateral leg swelling and scrotal swelling significantly improved. His chief complaint was scrotal swelling on the presentation. Patient states that his swelling is significantly better. He denies pain or tenderness and on examination there is no scrotal tenderness. However he has extensive erythema and some areas of laceration involving pubic, perineal and bilateral groin areas, with some evidence of ointment cream. Patient remains on IV Lasix 20 mg Also he is on clindamycin 450 mg 3 times a day and nystatin twice a day He is on home dose of ELIQUIS We will consult ID team Also PT/OT evaluation more Dr. Lopez will resume the care of the patient Objective - Vital Signs Vital signs: Vital Signs Temp 98.2 F 12/29/22 02:00 Pulse 124 H 12/29/22 02:00 Resp 20 12/28/22 20:00 BP 128/84 12/29/22 02:00 Pulse Ox 99 12/29/22 02:00 FiO2 Intake & Output 12/28/22 12/29/22 12/29/22 18:59 06:59 18:59 Intake Total 300 Output Total 900 1200 Balance -600 -1200 Weight 90.718 kg 99 kg Intake: Oral 300 Output: Urine 900 1200 Other: Voiding Method Urinal Urinal Diaper Diaper # Voids 3 - Exam GENERAL: The patient is alert and oriented x3, not in any acute distress. Well developed, well nourished. HEENT: Pupils are round and equally reacting to light. EOMI. No scleral icterus. No conjunctival pallor. Normocephalic, atraumatic. No pharyngeal erythema. No thyromegaly. CARDIOVASCULAR: S1 and S2 present. No murmurs, rubs, or gallops. PULMONARY: Chest is clear to auscultation, no wheezing . no crackles. -ABDOMEN: Soft, nontender, nondistended, normoactive bowel sounds. No palpable organomegaly. Rectal swelling significantly improved, no scrotal tenderness, erythema and cellulitis of the pubic area and bilateral groin MUSCULOSKELETAL: No joint swelling or deformity. EXTREMITIES: No cyanosis, clubbing, or pedal edema. NEUROLOGICAL: Gross neurological examination did not reveal any focal deficits. SKIN: No rashes. no petechiae. - Labs CBC & Chem 7: 12/29/22 07:09 12/29/22 07:09 Labs: Abnormal Lab Results - Last 24 Hours (Table) 12/28/22 12/28/22 12/28/22 Range/Units 11:09 11:09 11:11 RBC 4.20 L (4.30-5.90) m/uL Hct 38.6 L (39.0-53.0) % Potassium 3.2 L (3.5-5.1) mmol/L Creatinine 0.46 L (0.66-1.25) mg/dL Glucose 109 H (74-99) mg/dL Calcium 8.1 L (8.4-10.2) mg/dL Alkaline Phosphatase 140 H (38-126) U/L Urine Protein 2+ H (Negative) Urine Blood Large H (Negative) Ur Leukocyte Esterase Small H (Negative) Urine RBC >182 H (0-5) /hpf Urine WBC 25 H (0-5) /hpf Urine Mucus Many H (None) /hpf Assessment and Plan Assessment: Acute on chronic CHF with systolic dysfunction ejection fraction 20-25% Worsening leg swelling and scrotal swelling, improving Pubic and perineal cellulitis, could be fungal versus bacterial infection Possible UTI History of seizure disorder Hypertension Hyperlipidemia Coronary artery disease history of stent placement Moderate MR, COPD not in exacerbation Hypokalemia. Replaced. Plan: Continue with antibiotic, currently on clindamycin Continue with nystatin Continue with IV Lasix 20 mg twice a day Infectious disease consult Labs and medication were reviewed.. Continue same treatment. Continue with symptomatic treatment. Resume home medication. Monitor labs and vitals. DVT and GI prophylaxis. Further recommendations as per clinical course of the patient DVT prophylaxis: ELIQUIS GI Prophylaxis: Pepcid PT/OT: Pending Prognosis is guarded
[2022-12-29] MEDS: ACETAMINOPHEN TAB 325 MG TAB PO PRN (22:17)
[2022-12-30] MEDS: CLINDAMYCIN 150 MG CAP PO SCH (08:51)
[2022-12-30] MEDS: APIXABAN 5 MG TAB PO SCH ×2 (08:51→21:14)
[2022-12-30] MEDS: FUROSEMIDE 10 MG/ML 2 ML VIAL IV SCH ×2 (08:51→21:13)
[2022-12-30] MEDS: PHENYTOIN SODIUM EXTENDED 100 MG CAP PO SCH ×2 (08:52→21:15)
[2022-12-30] MEDS: NYSTATIN 100,000 UNIT/GM POWD 15 GM TOPICAL SCH ×2 (08:52→21:14)
--- NOTE | 2022-12-30 19:50 | P.CONS ---
History of Present Illness - Reason for Consult Consult date: 12/30/22 Groin cellulitis and UTI Requesting physician: Mike E Sheet - Chief Complaint Pain to the groin and testicular swelling X days - History of Present Illness Patient is a 87-year-old male with a past medical history significant for coronary disease atrial fibrillation COPD hypertension hyperlipidemia seizure disorder and renal insufficiency presenting to the hospital 2 days ago for evaluation of testicular swelling along with bilateral groin redness and swelling symptom has been going on for few days patient has been evaluated in the outpatient setting and has been treated with local cream without any significant improvement and the patient present to the hospital on arrival to the ER the patient was afebrile and no fever has been recorded subsequently p atient did have a normal white count kidney function has been normal liver enzymes are normal did have a positive UA patient did have history of penicillin allergy patient was started on clindamycin along with nystatin powder to the groin infectious disease was consulted last night for further management of antibiotic therapy patient has been concerned mostly about the swelling to the scrotal area and has been complaining of burning pain to bilateral groin area especially left groin denies having any drainage though Review of Systems Positive point and negatives has been mentioned in the HPI, complete review of systems was performed and all other systems are negative Past Medical History Past Medical History: Atrial Fibrillation, Coronary Artery Disease (CAD), COPD, Hyperlipidemia, Hypertension, Myocardial Infarction ([place]), Pneumonia, Renal Disease, Seizure Disorder, Syncope Additional Past Medical History / Comment(s): bilateral pneumonia in past,seizures with last one in 2011, possible L inguinal hernia which causes sudden pain and he falls at times because of this-had ultrasound 2 days ago, 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 Past trauma Past Anesthesia/Blood Transfusion Reactions: No Reported Reaction Date of Last Stent Placement:: 2014 Past Psychological History: No Psychological Hx Reported Smoking Status: Never smoker Past Alcohol Use History: None Reported Past Drug Use History: None Reported - Past Family History Mother Additional Family Medical History / Comment(s): Mother had mental health problems. Father Family Medical History: No Reported History Medications and Allergies Home Medications Medication Instructions Recorded Confirmed Type Apixaban [Eliquis] 5 mg PO BID #60 tab 09/26/16 12/28/22 Rx Phenytoin Sodium Extended 300 mg PO BID 12/28/22 12/28/22 History [Dilantin] Nystatin 100,000 Unit/gm Powd 1 applic TOPICAL BID #4 oz 01/01/23 Rx [Mycostatin Powder] cefUROXime axetiL [Ceftin] 500 mg PO BID 7 Days #14 tab 01/01/23 Rx Allergies Allergy/AdvReac Type Severity Reaction Status Date / Time Penicillins Allergy Rash/Hives Verified 12/28/22 13:38 Physical Exam Vitals: Vital Signs Temp Pulse Resp BP Pulse Ox 12/30/22 07:50 98.6 F 98 17 148/72 93 L 12/30/22 02:00 98.0 F 96 17 142/88 94 L 12/29/22 20:00 97.7 F 99 18 156/79 97 12/29/22 13:45 97.8 F 106 H 21 135/80 98 Intake and Output 12/29/22 12/30/22 12/30/22 22:59 06:59 14:59 Output Total 1130 800 Balance -1130 -800 Output: Urine 1130 800 Other: Voiding Method Urinal Urinal Diaper Diaper Weight 110 kg GENERAL DESCRIPTION: Elderly male lying in bed, no distress. No tachypnea or accessory muscle of respiration use. HEENT: Shows Pallor , no scleral icterus. Oral mucous membrane is dry. No pharyngeal erythema or thrush NECK: Trachea central, no thyromegaly. LUNGS: Unlabored breathing. Clear to auscultation anteriorly. No wheeze or crackle. HEART: S1, S2, regular rate and rhythm. No loud murmur ABDOMEN: Soft, no tenderness , : Bilateral groin area did have excoriation and redness and significant swelling AND redness of the testicular area EXTREMITIES: No edema of feet. SKIN: No rash, no masses palpable. NEUROLOGICAL: The patient is awake, alert, oriented x3, mood and affect normal. Results CBC & Chem 7: 12/29/22 07:09 12/29/22 07:09 Labs: Abnormal Lab Results - Last 24 Hours (Table) 12/29/22 12/29/22 Range/Units 07:09 07:09 RBC 3.63 L (4.40-5.60) X 10*6/uL Hgb 11.2 L (13.0-17.0) g/dL Hct 33.5 L (39.6-50.0) % RDW 14.8 H (11.5-14.5) % MPV 9.4 L (9.5-12.2) fL BUN 7.7 L (9.0-27.0) mg/dL Glucose 126 H (70-110) mg/dL Calcium 8.2 L (8.7-10.3) mg/dL Microbiology - Last 24 Hours (Table) 12/28/22 11:11 Urine Culture - Preliminary Urine,Voided Assessment and Plan (1) Cutaneous candidiasis Status: Acute Code(s): B37.2 - CANDIDIASIS OF SKIN AND NAIL SNOMED Code(s): 27334725 (2) Cellulitis of groin Status: Acute Code(s): L03.314 - CELLULITIS OF GROIN SNOMED Code(s): 75569014 Plan: 1patient presented to the hospital with increasing swelling to the scrotal area along with bilateral groin area in this patient with evidence of extensive cutaneous candidiasis involving the bilateral groin area and a possible component of secondary cellulitis likely from gram-positive skin [place]. 2patient also have a positive UA and concern for possible UTI from telemetry gram-negative pathogen 3-history of penicillin allergy but no history of anaphylaxis 4-patient is currently on phenytoin contraindicating the use of Diflucan 5-we will discontinue clindamycin and start the patient on Rocephin 2 g daily 6-continue with the nystatin powder to the groin twice a day 7-we will recommend gentle diuresis to decrease the swelling We will follow on clinical condition and cultures to further adjust medication if needed Thank you for this consultation we will follow the patient along with you Time with Patient: Greater than 30
[2022-12-30] MEDS: ACETAMINOPHEN TAB 325 MG TAB PO PRN (21:15)
--- NOTE | 2022-12-30 22:41 | P.PN ---
Subjective Progress Note Date: 12/30/22 Patient is a pleasant 87-year-old white male who was admitted for cardiomyopathy with congestive heart failure acute on chronic ejection fraction 20-25%. With edema and scrotal edema and pleural effusion patient doing somewhat better staying denies any fever denies any nausea vomiting. Shortness of breath is improved and edema has improved Objective - Vital Signs Vital signs: Vital Signs Temp 98.7 F 12/30/22 20:00 Pulse 102 H 12/30/22 20:00 Resp 20 12/30/22 20:00 BP 148/85 12/30/22 20:00 Pulse Ox 97 12/30/22 20:00 FiO2 Intake & Output 12/30/22 12/30/22 12/31/22 06:59 18:59 06:59 Output Total 1430 350 Balance -1430 -350 Weight 110 kg Output: Urine 1430 350 Other: Voiding Method Urinal Urinal Diaper Diaper - Exam PHYSICAL EXAMINATION: Patient is lying in the bed comfortably, no acute distress, awake alert and oriented.. HEENT: Normocephalic. Neck is supple. Pupils reactive. Nostrils clear. Oral cavity is moist. Neck reveals no JVD, carotid bruits, or thyromegaly. CHEST EXAMINATION: Trachea is central. Symmetrical expansion. Minimal left basilar crackles. No wheezing. CARDIAC: Normal S1, S2 with no gallops. No murmurs ABDOMEN: Soft. Bowel sounds normal. No organomegaly. No abdominal bruits. Extremities: reveal no edema. No clubbing or cyanosis Neurologically awake, alert, oriented 2-3 with well-coordinated movements. No focal deficits noted Skin: . Patient does have left groin rash and swelling. Scrotal swelling. No other skin lesions. Psychiatric: Coperative. Could not be sure she completely Musculoskeletal: No joint swelling or deformity. Normal range of motion. - Labs CBC & Chem 7: 12/29/22 07:09 12/29/22 07:09 Labs: Microbiology - Last 24 Hours (Table) 12/28/22 11:11 Urine Culture - Final Urine,Voided Assessment and Plan (1) Scrotal edema Current Visit: Yes Status: Acute Code(s): N50.89 - OTHER SPECIFIED DISORDERS OF THE MALE GENITAL ORGANS SNOMED Code(s): 75169186 (2) CHF (congestive heart failure) Current Visit: Yes Status: Acute Code(s): I50.9 - HEART FAILURE, UNSPECIFIED SNOMED Code(s): 52531625 (3) Cellulitis of groin Current Visit: Yes Status: Acute Code(s): L03.314 - CELLULITIS OF GROIN SNOMED Code(s): 07939733 (4) Intertrigo Current Visit: Yes Status: Acute Code(s): L30.4 - ERYTHEMA INTERTRIGO SNOMED Code(s): 62111509 (5) Anticoagulant long-term use Current Visit: No Status: Acute Code(s): Z79.01 - CELEBRITY MANAGER (CURRENT) USE OF ANTICOAGULANTS SNOMED Code(s): 145238287 (6) Atrial fibrillation with RVR Current Visit: No Status: Acute Code(s): I48.91 - UNSPECIFIED ATRIAL FIBRILLATION SNOMED Code(s): 820244157100652 (7) CAD (coronary artery disease) Current Visit: No Status: Acute Code(s): I25.10 - ATHSCL HEART DISEASE OF [place] CORONARY ARTERY W/O ANG PCTRS SNOMED Code(s): 32642728 (8) COPD (chronic obstructive pulmonary disease) Current Visit: No Status: Acute Code(s): J44.9 - CHRONIC OBSTRUCTIVE PULM ONARY DISEASE, UNSPECIFIED SNOMED Code(s): 68611405 (9) HTN (hypertension) Current Visit: No Status: Acute Code(s): I10 - ESSENTIAL (PRIMARY) HYPERTENSION SNOMED Code(s): 90741425 Plan: Plan is to continue IV diuresing and continue treatment for groin cellulitis. We will continue cardiac recommendations for cardiomyopathy and congestive heart failure she is guarded at this time
[2022-12-31] MEDS: NYSTATIN 100,000 UNIT/GM POWD 15 GM TOPICAL SCH ×2 (09:01→22:42)
[2022-12-31] MEDS: APIXABAN 5 MG TAB PO SCH ×2 (09:02→20:46)
[2022-12-31] MEDS: PHENYTOIN SODIUM EXTENDED 100 MG CAP PO SCH ×2 (09:02→20:46)
[2022-12-31] MEDS: FUROSEMIDE 10 MG/ML 2 ML VIAL IV SCH ×2 (09:02→20:46)
--- NOTE | 2022-12-31 14:06 | P.PN ---
Subjective Progress Note Date: 12/31/22 Principal diagnosis: Groin cellulitis and UTI Patient is a 87-year-old male with a past medical history significant for coronary disease atrial fibrillation COPD hypertension hyperlipidemia seizure disorder and renal insufficiency presenting to the hospital 2 days ago f or evaluation of testicular swelling along with bilateral groin redness and swelling, patient has been diagnosed with a groin creatinine candidiasis and cellulitis and there was concern for UTI. On today's evaluation that is 12/31/2022, the patient denies having any fever or any chills patient did have improvement to his testicular swelling and redness groin area discomfort has improved as well patient denies having any chest pain shortness of breath or cough no abdominal pain or diarrhea Objective - Vital Signs Vital signs: Vital Signs Temp 98.1 F 12/31/22 07:41 Pulse 83 12/31/22 07:41 Resp 18 12/31/22 07:41 BP 151/84 12/31/22 07:41 Pulse Ox 98 12/31/22 07:41 FiO2 Intake & Output 12/30/22 12/31/22 12/31/22 18:59 06:59 18:59 Output Total 350 800 Balance -350 -800 Weight 108 kg Output: Urine 350 800 Other: Voiding Method Urinal Urinal Diaper Diaper # Voids 1 # Bowel Movements 1 - Exam GENERAL DESCRIPTION: An elderly male lying in bed in no distress RESPIRATORY SYSTEM: Unlabored breathing , decreased breath sounds at bases HEART: S1 S2 regular rate and rhythm , ABDOMEN: Soft , no tenderness Bilateral groin area excoriation and redness has discrete testicular swelling has improved - Labs CBC & Chem 7: 12/29/22 07:09 12/29/22 07:09 Labs: Microbiology - Last 24 Hours (Table) 12/28/22 11:11 Urine Culture - Final Urine,Voided Assessment and Plan (1) Cellulitis of groin Current Visit: Yes Status: Acute Code(s): L03.314 - CELLULITIS OF GROIN SNOMED Code(s): 77576911 (2) Intertrigo Current Visit: Yes Status: Acute Code(s): L30.4 - ERYTHEMA INTERTRIGO SNOMED Code(s): 90592346 Plan: 1patient presented to the hospital with increasing swelling to the scrotal area along with bilateral groin area in this patient with evidence of extensive cutaneous candidiasis involving the bilateral groin area and a possible component of secondary cellulitis likely from gram-positive skin [place]. 2patient also have a positive UA and concern for possible UTI from telemetry gram-negative pathogen 3-history of penicillin allergy but no history of anaphylaxis 4-patient is currently on phenytoin contraindicating the use of Diflucan 5-patient seemed to showing clinical improvement and we will continue the patient on Rocephin 2 g daily, along with nystatin powder to the groin twice a day
[2022-12-31] MEDS: ACETAMINOPHEN TAB 325 MG TAB PO PRN (20:46)
--- NOTE | 2022-12-31 23:19 | P.PN ---
Subjective Progress Note Date: 12/31/22 Patient is a pleasant 87-year-old white male who was admitted for cardiomyopathy with congestive heart failure acute on chronic ejection fraction 20-25%. With edema and scrotal edema and pleural effusion patient doing somewhat better staying denies any fever denies any nausea vomiting. Shortness of breath is improved and edema has improved Objective - Vital Signs Vital signs: Vital Signs Temp 98.8 F 12/31/22 20:00 Pulse 62 12/31/22 20:00 Resp 16 12/31/22 20:00 BP 144/95 12/31/22 20:00 Pulse Ox 98 12/31/22 20:00 FiO2 Intake & Output 12/31/22 12/31/22 01/01/23 06:59 18:59 06:59 Output Total 800 825 Balance -800 -825 Weight 108 kg Output: Urine 800 825 Other: Voiding Method Urinal Urinal Diaper Diaper # Voids 1 # Bowel Movements 1 1 - Exam PHYSICAL EXAMINATION: Patient is lying in the bed comfortably, no acute distress, awake alert and oriented.. HEENT: Normocephalic. Neck is supple. Pupils reactive. Nostrils clear. Oral cavity is moist. Neck reveals no JVD, carotid bruits, or thyromegaly. CHEST EXAMINATION: Trachea is central. Symmetrical expansion. Minimal left basilar crackles. No wheezing. CARDIAC: Normal S1, S2 with no gallops. No murmurs ABDOMEN: Soft. Bowel sounds normal. No organomegaly. No abdominal bruits. Extremities: reveal no edema. No clubbing or cyanosis Neurologically awake, alert, oriented 2-3 with well-coordinated movements. No focal deficits noted Skin: . Patient does have left groin rash and swelling. Scrotal swelling. No other skin lesions. Psychiatric: Coperative. Could not be sure she completely Musculoskeletal: No joint swelling or deformity. Normal range of motion. - Labs CBC & Chem 7: 12/29/22 07:09 12/29/22 07:09 Assessment and Plan (1) Scrotal edema Current Visit: Yes Status: Acute Code(s): N50.89 - OTHER SPECIFIED DISORDERS OF THE MALE GENITAL ORGANS SNOMED Code(s): 43766662 (2) CHF (congestive heart failure) Current Visit: Yes Status: Acute Code(s): I50.9 - HEART FAILURE, UNSPECIFIED SNOMED Code(s): 06826183 (3) Cellulitis of groin Current Visit: Yes Status: Acute Code(s): L03.314 - CELLULITIS OF GROIN SNOMED Code(s): 51309105 (4) Intertrigo Current Visit: Yes Status: Acute Code(s): L30.4 - ERYTHEMA INTERTRIGO SNOMED Code(s): 17270239 (5) Anticoagulant long-term use Current Visit: No Status: Acute Code(s): Z79.01 - ENOLOGIST (CURRENT) USE OF ANTICOAGULANTS SNOMED Code(s): 318077835 (6) Atrial fibrillation with RVR Current Visit: No Status: Acute Code(s): I48.91 - UNSPECIFIED ATRIAL FIBRILLATION SNOMED Code(s): 404304963888615 (7) CAD (coronary artery disease) Current Visit: No Status: Acute Code(s): I25.10 - ATHSCL HEART DISEASE OF [place] CORONARY ARTERY W/O ANG PCTRS SNOMED Code(s): 14436226 (8) COPD (chronic obstructive pulmonary disease) Current Visit: No Status: Acute Code(s): J44.9 - CHRONIC OBSTRUCTIVE PULMONARY DISEASE, UNSPECIFIED SNOMED Code(s): 93345302 (9) HTN (hypertension) Current Visit: No Status: Acute Code(s): I10 - ESSENTIAL (PRIMARY) HYPERTENSION SNOMED Code(s): 80743699 Plan: Continue IV antibiotics Rocephin 2 g daily continue nystatin to groin. Continue infectious disease consultation and coverage for gram-negative packed UTI with bacteremia will continue to follow patient's progress his fluid balance and diuresing seems to be going well hopeful for discharge soon
[2023-01-01] MEDS: PHENYTOIN SODIUM EXTENDED 100 MG CAP PO SCH ×2 (09:29→20:32)
[2023-01-01] MEDS: APIXABAN 5 MG TAB PO SCH ×2 (09:29→20:32)
[2023-01-01] MEDS: FUROSEMIDE 10 MG/ML 2 ML VIAL IV SCH ×2 (09:29→20:35)
[2023-01-01] MEDS: NYSTATIN 100,000 UNIT/GM POWD 15 GM TOPICAL SCH ×2 (09:30→20:40)
--- NOTE | 2023-01-01 14:20 | P.PN ---
Subjective Progress Note Date: 01/01/23 Principal diagnosis: Groin cellulitis and UTI Patient is a 87-year-old male with a past medical history significant for coronary disease atrial fibrillation COPD hypertension hyperlipidemia seizure disorder and renal insufficiency presenting to the hospital 2 days ago f or evaluation of testicular swelling along with bilateral groin redness and swelling, patient has been diagnosed with a groin creatinine candidiasis and cellulitis and there was concern for UTI. On today's evaluation that is 01/01/2023, the patient remains to be afebrile, the patient testicular swelling and redness as well as groin area discomfort has improved , the patient denies having any chest pain shortness of breath or cough no abdominal pain or diarrhea Objective - Vital Signs Vital signs: Vital Signs Temp 97.3 F L 01/01/23 07:25 Pulse 98 01/01/23 07:25 Resp 18 01/01/23 07:25 BP 129/92 01/01/23 07:25 Pulse Ox 96 01/01/23 07:25 FiO2 Intake & Output 12/31/22 01/01/23 01/01/23 18:59 06:59 18:59 Output Total 825 1100 Balance -825 -1100 Weight 108.5 kg Output: Urine 825 1100 Other: Voiding Method Urinal Bedside Commode Diaper Urinal # Bowel Movements 1 - Exam GENERAL DESCRIPTION: An elderly male lying in bed in no distress RESPIRATORY SYSTEM: Unlabored breathing , decreased breath sounds at bases HEART: S1 S2 regular rate and rhythm , ABDOMEN: Soft , no tenderness Bilateral groin area excoriation and redness has discrete testicular swelling has improved - Labs CBC & Chem 7: 12/29/22 07:09 12/29/22 07:09 Assessment and Plan (1) Cellulitis of groin Current Visit: Yes Status: Acute Code(s): L03.314 - CELLULITIS OF GROIN SNOMED Code(s): 59324439 (2) Intertrigo Current Visit: Yes Status: Acute Code(s): L30.4 - ERYTHEMA INTERTRIGO SNOMED Code(s): 54175941 Plan: 1patient presented to the hospital with increasing swelling to the scrotal area along with bilateral groin area in this patient with evidence of extensive cutaneous candidiasis involving the bilateral groin area and a possible component of secondary cellulitis likely from gram-positive skin [place]. 2patient also have a positive UA and concern for possible UTI from telemetry gram-negative pathogen 3-history of penicillin allergy but no history of anaphylaxis 4-patient is currently on phenytoin contraindicating the use of Diflucan 5-patient has shown clinical improvement and we will continue the patient on Rocephin 2 g daily, along with nystatin powder to the groin twice a day, while in a patient with a plan to finish therapy with oral Ceftin along with nystatin powder to the groin 7 days Time with Patient: Less than 30
[2023-01-01] MEDS: ACETAMINOPHEN TAB 325 MG TAB PO PRN (20:33)
--- NOTE | 2023-01-01 22:45 | P.DS ---
Providers Date of admission: 12/28/22 14:10 Expected date of discharge: 01/01/23 Attending physician: Roel Lopez Consults: 12/29/22 21:36 Consult Physician Routine Consulting Provider: Jatinder Paniagua Consult Reason/Comments: groin cellulitis and uti Do you want consulting provider notified?: Yes, Notify in am Primary care physician: Roel Lopez - Discharge Diagnosis(es) (1) Scrotal edema Current Visit: Yes Status: Acute (2) CHF (congestive heart failure) Current Visit: Yes Status: Acute (3) Cellulitis of groin Current Visit: Yes Status: Acute (4) Intertrigo Current Visit: Yes Status: Acute (5) Anticoagulant long-term use Current Visit: No Status: Acute (6) Atrial fibrillation with RVR Current Visit: No Status: Acute (7) CAD (coronary artery disease) Current Visit: No Status: Acute (8) COPD (chronic obstructive pulmonary disease) Current Visit: No Status: Acute (9) HTN (hypertension) Current Visit: No Status: Acute Hospital Course: This is a debilitated 87-year-old white male with a poor ejection fraction congestive heart failure with EF of about 25%. He came to the hospital suffering of scotal edema cellulitis the groin and apparent fungal infection as well. Is admitted for medical debility decreased ambulation and weakness stemming from his previous left hip fracture patient has been wheelchair bound and low level of energy the past few months he was treated with IV Rocephin and nystatin powder and Lasix patient improved and was offered to go to inpatient rehabilitation this is a range from but patient adamantly refused to go states that he has to grandsons at home that care for her very well arrangements were made for patient to be discharged to home he wants to go in the morning with wheelchair van Patient Condition at Discharge: Fair Plan - Discharge Summary Discharge Rx Participant: Yes New Discharge Prescriptions: New cefUROXime axetiL [Ceftin] 500 mg PO BID 7 Days #14 tab Nystatin 100,000 Unit/gm Powd [Mycostatin Powder] 1 applic TOPICAL BID #4 oz Continue Apixaban [Eliquis] 5 mg PO BID #60 tab Phenytoin Sodium Extended [Dilantin] 300 mg PO BID Discharge Medication List Apixaban [Eliquis] 5 mg PO BID #60 tab 09/26/16 [Rx] Phenytoin Sodium Extended [Dilantin] 300 mg PO BID 12/28/22 [History] Nystatin 100,000 Unit/gm Powd [Mycostatin Powder] 1 applic TOPICAL BID #4 oz 01/01/23 [Rx] cefUROXime axetiL [Ceftin] 500 mg PO BID 7 Days #14 tab 01/01/23 [Rx] Follow up Appointment(s)/Referral(s): Roel Lopez DO [Primary Care Provider] - 1 Week Discharge Disposition: HOME SELF-CARE
[2023-01-02 07:52] VITALS: BMI 37.3
[2023-01-02] MEDS: APIXABAN 5 MG TAB PO SCH (07:59)
[2023-01-02] MEDS: FUROSEMIDE 10 MG/ML 2 ML VIAL IV SCH (07:59)
[2023-01-02] MEDS: PHENYTOIN SODIUM EXTENDED 100 MG CAP PO SCH (08:01)
[2023-01-02] MEDS: NYSTATIN 100,000 UNIT/GM POWD 15 GM TOPICAL SCH (08:01)
[2023-01-02] MEDS: ACETAMINOPHEN TAB 325 MG TAB PO PRN (08:05)
[2023-01-02 08:07] VITALS: BP 154/83; PULSE 105; RESP 16; TEMP 98.1
== END 2023-01-02 11:54 | disposition home or self-care (01) | DRG 602 ==
LOC: EC 09:47 → 4SSUR 14:10
PROVIDERS: ADMIT Family Medicine; ATTEND Family Medicine
DX: L03.314 Cellulitis of groin (principal); I50.23 Acute on chronic systolic (congestive) heart failure; I42.9 Cardiomyopathy, unspecified; N39.0 Urinary tract infection, site not specified; I11.0 Hypertensive heart disease with heart failure; R54 Age-related physical debility; Z79.01 Long term (current) use of anticoagulants; I48.91 Unspecified atrial fibrillation; G40.909 Epilepsy, unspecified, not intractable, without status epilepticus; J44.9 Chronic obstructive pulmonary disease, unspecified; I34.0 Nonrheumatic mitral (valve) insufficiency; B37.2 Candidiasis of skin and nail; N48.89 Other specified disorders of penis; L30.4 Erythema intertrigo; N50.89 Other specified disorders of the male genital organs; E65 Localized adiposity; I25.10 Atherosclerotic heart disease of native coronary artery without angina pectoris; E78.5 Hyperlipidemia, unspecified; H91.93 Unspecified hearing loss, bilateral; N50.819 Testicular pain, unspecified; N28.9 Disorder of kidney and ureter, unspecified; K40.91 Unilateral inguinal hernia, without obstruction or gangrene, recurrent; M79.89 Other specified soft tissue disorders; E87.6 Hypokalemia; B96.89 Other specified bacterial agents as the cause of diseases classified elsewhere; L03.315 Cellulitis of perineum; Z99.3 Dependence on wheelchair; Z28.311 Partially vaccinated for COVID-19; Z86.011 Personal history of benign neoplasm of the brain; I25.2 Old myocardial infarction; Z95.5 Presence of coronary angioplasty implant and graft; Z88.0 Allergy status to penicillin; Z91.81 History of falling; S72.002S Fracture of unspecified part of neck of left femur, sequela; Z79.899 Other long term (current) drug therapy
CPT/HCPCS: 36415; 71046; 80048; 80053; 81001; 83880; 85025; 85610; 85730; 87086; 96374; 99285

== ENCOUNTER 2023-01-02 21:58 | Inpatient (IN) | payer OTHER, MEDICARE ==
[2023-01-02] MEDS ORDERED: HYDROmorphone 0.5 MG/0.5 ML SYRINGE IVP STA (22:30)
[2023-01-02] MEDS ORDERED: SODIUM CHLORIDE 0.9% 500 ML 500 ML IV STA (22:33)
[2023-01-02] MEDS ORDERED: DILTIAZEM DRIP BOLUS FROM BAG 1 MG SOLN IV ONE (22:33)
--- NOTE | 2023-01-02 22:36 | ED ---
Fall HPI - General Chief Complaint: Fall Stated Complaint: Fall, Left Leg Injury Time Seen by Provider: 01/02/23 22:28 Source: EMS Mode of arrival: EMS - History of Present Illness Initial Comments: This patient is an 87-year-old man who comes in for left hip pain. The patient reportedly had fallen at his residence resulting in severe left hip pain and inability to get up. EMS was called, and also found the patient to have tachycardia. They placed him on the monitor which revealed atrial fibrillation. On arrival patient's complaining of severe left hip pain anytime he attempts to move the left leg. Patient denying chest symptoms. MD Complaint: fall -: hour(s) Fall From: standing When Fall Occurred: [address] Fall Occurred: home Loss of Consciousness: none Prolonged Down Time?: no Symptoms Prior to Fall: none Location - Extremities: Left: Leg Severity: severe Context: tripped/slipped - Related Data Home Medications Medication Instructions Recorded Confirmed Phenytoin Sodium Extended 300 mg PO TID 01/03/23 01/03/23 [Dilantin] Previous Rx's Medication Instructions Recorded Apixaban [Eliquis] 5 mg PO BID #60 tab 09/26/16 Nystatin 100,000 Unit/gm Powd 1 applic TOPICAL BID #4 oz 01/01/23 [Mycostatin Powder] Acetaminophen Tab [Tylenol] 650 mg PO Q6HR PRN tab 01/12/23 Amoxic-Pot Clav 875-125Mg 1 tab PO Q12HR 5 Days #10 tab 01/12/23 [Augmentin 875-125] Atorvastatin [Lipitor] 40 mg PO HS tab 01/12/23 Benzocaine/Menthol Lozeng [Cepacol 1 each MUCOUS MEM Q4HR PRN lozenge 01/12/23 lozenge] Famotidine [Pepcid] 20 mg PO BID tab 01/12/23 HYDROcodone/APAP 5-325MG [[place] 1 tab PO Q6HR PRN 3 Days #12 tab 01/12/23 5-325] Magnesium Oxide [Mag-Ox] 400 mg PO TID tab 01/12/23 Metoprolol Tartrate [Lopressor] 100 mg PO BID tab 01/12/23 OLANZapine [ZyPREXA] 2.5 mg PO DAILY tab 01/12/23 Sennosides-Docusate Sodium 1 each PO DAILY tab 01/12/23 [Senokot-S] Sennosides-Docusate Sodium 2 each PO HS tab 01/12/23 [Senokot-S] Verapamil [Isoptin] 40 mg PO BID tab 01/12/23 Allergies Allergy/AdvReac Type Severity Reaction Status Date / Time Penicillins Allergy Rash/Hives Verified 01/02/23 22:04 Review of Systems ROS Statement: Those systems with pertinent positive or pertinent negative responses have been documented in the HPI. ROS Other: All systems not noted in ROS Statement are negative. Constitutional: Denies: fever, weakness Respiratory: Denies: cough, dyspnea Cardiovascular: Reports: palpitations. Denies: chest pain, edema, syncope Gastrointestinal: Denies: abdominal pain, vomiting, diarrhea Genitourinary: Denies: dysuria, hematuria Musculoskeletal: Reports: as per HPI, arthralgia. Denies: back pain Skin: Denies: rash Neurological: Denies: headache, weakness, numbness Hematological/Lymphatic: Reports: other (Patient is on eliquis) Past Medical History Past Medical History: Atrial Fibrillation, Coronary Artery Disease (CAD), COPD, Hyperlipidemia, Hypertension, Myocardial Infarction ([place]), Pneumonia, Renal Disease, Seizure Disorder, Syncope Additional Past Medical History / Comment(s): bilateral pneumonia in past,seizures with last one in 2011, possible L inguinal hernia which causes sudden pain and he falls at times because of this-had ultrasound 2 days ago, 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 Past trauma Past Anesthesia/Blood Transfusion Reactions: No Reported Reaction Date of Last Stent Placement:: 2014 Past Psychological History: No Psychological Hx Reported Smoking Status: Never smoker Past Alcohol Use History: None Reported Past Drug Use History: None Reported - Past Family History Mother Additional Family Medical History / Comment(s): Mother had mental health problems. Father Family Medical History: No Reported History General Exam Limitations: physical limitation General appearance: alert, in distress Head exam: Present: atraumatic, normocephalic Eye exam: Present: normal appearance. Absent: scleral icterus, conjunctival injection ENT exam: Present: mucous membranes dry Neck exam: Present: normal inspection Respiratory exam: Present: normal lung sounds bilaterally. Absent: respiratory distress, wheezes, rales, rhonchi, stridor Cardiovascular Exam: Present: tachycardia, irregular rhythm, systolic murmur. Absent: diastolic murmur, rubs, gallop GI/Abdominal exam: Present: soft. Absent: distended, tenderness, guarding, rebound, rigid, mass Extremities exam: Present: tenderness, other (There is left leg external rotation and shortening.). Absent: full ROM Left Hip exam: Present: tenderness, deformity, crepitus, external rotation, shortenin g, pelvic stability. Absent: full ROM, abrasion, laceration, dislocation Knee exam: Present: full ROM, full knee extension. Absent: tenderness, swelling, abrasion, ecchymosis, deformity, crepitus, dislocation, erythema, effusion Lower Leg exam: Present: normal inspection. Absent: tenderness, swelling, abrasion Ankle exam: Present: normal inspection, full ROM. Absent: tenderness, swelling Foot/Toe exam: Present: normal inspection, full ROM. Absent: tenderness, swelling, abrasion Neurovascular tendon exam: Present: no vascular compromise. Absent: pulse deficit, abnormal cap refill, motor deficit, sensory deficit, tendon deficit Gait: not tested/not observed Back exam: Present: normal inspection Neurological exam: Present: alert. Absent: motor sensory deficit Skin exam: Present: warm, dry, intact, normal color. Absent: rash Course Vital Signs 01/02/23 01/03/23 01/03/23 21:59 00:04 00:13 Temperature 98.6 F Pulse Rate 141 H 165 H 160 H Pulse Rate [ [employer] ] Respiratory 20 Rate Blood Pressure Blood Pressure [Left Arm] O2 Sat by Pulse 99 Oximetry 01/03/23 01/03/23 01:08 02:10 Temperature 98.3 F Pulse Rate 134 H Pulse Rate [ 130 H [employer]ener ] Respiratory 17 28 H Rate Blood Pressure 168/97 Blood Pressure 166/77 [Left Arm] O2 Sat by Pulse 96 98 Oximetry Medical Decision Making - Medical Decision Making This patient is an 87-year-old man brought to have evaluation after fall. Patient found to be in atrial fibrillation with rapid ventricular rate and to have left hip fracture. The case is discussed with orthopedic surgery, they will accept for admission. Patient to have medical consultation and cardiology consultation for the A. fib with RVR. The patient had left hip x-ray which I interpreted as showing intertrochanteric fracture. Chest x-ray is obtained which I interpreted as not showing acute bony trauma, pneumothorax, or infiltrate. Was pt. sent in by a medical professional or institution (, PA, SEWER AND INSPECTOR, urgent care, hospital, or fdc...) When possible be specific @ -[No] Did you speak to anyone other than the patient for history (EMS, parent, family, police, friend...)? What history was obtained from this source @ -[EMS personnel did give history Did you review nursing and triage notes (agree or disagree)? Why? @ -[I reviewed and agree with nursing and triage notes] Were old charts reviewed (outside hosp., previous admission, EMS record, old EKG, old radiological studies, urgent care reports/EKG's, fdc records)? Report findings @ -[No old charts were reviewed] Differential Diagnosis (chest pain, altered mental status, abdominal pain women, abdominal pain men, vaginal bleeding, weakness, fever, dyspnea, syncope, headache, dizziness, GI bleed, back pain, seizure, CVA, palpatations, mental health, musculoskeletal)? @ -[Differential diagnosis of the patient's left hip pain includes: Hip fracture, hip dislocation, contusion, sprain, strain. EKG interpreted by me (3pts min.). @ -[As above] X-rays interpreted by me (1pt min.). @ -[As above CT interpreted by me (1pt min.). @ -[None done] U/S interpreted by me (1pt. min.). @ -[None done] What testing was considered but not performed or refused? (CT, X-rays, U/S, labs)? Why? @ -[None] What meds were considered but not given or refused? Why? @ -[None] Did you discuss the management of the patient with other professionals (professionals i.e. , PA, SEWER AND INSPECTOR, lab, RT, psych nurse, social and political studies professor, cheesemaker, te acher, assignment officer, welfare case worker)? Give summary @ -[The case is discussed with the orthopedic surgeon on-call who will admit Was smoking cessation discussed for >3mins.? @ -[No] Was critical care preformed (if so, how long)? @ -[No] Were there social determinants of health that impacted care today? How? (Homelessness, low income, unemployed, alcoholism, drug addiction, transportat ion, low edu. Level, literacy, decrease access to med. care, halfway, rehab)? @ -[No] Was there de-escalation of care discussed even if they declined (Discuss DNR or withdrawal of care, Hospice)? DNR status @ -[No] What co-morbidities impacted this encounter? (DM, HTN, Smoking, COPD, CAD, Cancer, CVA, ARF, Chemo, Hep., AIDS, mental health diagnosis, sleep apnea, morbid obesity)? @ -[Atrial fibrillation Was patient admitted / discharged? Hospital course, mention meds given and route, prescriptions, significant lab abnormalities, going to OR and other pertinent info. @ -[The patient is admitted for probable left hip surgery and also to have cardiology and medical consultations. Undiagnosed new problem with uncertain prognosis? @ -[No] Drug Therapy requiring intensive monitoring for toxicity (Heparin, Nitro, Insulin, Cardizem)? @ -[Cardizem Were any procedures done? @ -[No] Diagnosis/symptom? @ -[Acute left hip fracture Atrial fibrillation with rapid ventricular rate Acute, or Chronic, or Acute on Chronic? @ -[default] Uncomplicated (without systemic symptoms) or Complicated (systemic symptoms)? @ -[Uncomplicated Side effects of treatment? @ -[No] Exacerbation, Progression, or Severe Exacerbation? @ -[No] Poses a threat to life or bodily function? How? (Chest pain, [place], [place], pneumonia, PE, COPD, DKA, ARF, appy, cholecystitis, CVA, Diverticulitis, Homicidal, Suicidal, threat to staff... and all critical care pts) @ -[Yes - Lab Data Result diagrams: 01/13/23 07:06 01/13/23 07:06 Lab Results 01/02/23 01/02/23 01/02/23 Range/Units 22:03 22:03 22:03 WBC 7.8 (3.8-10.6) k/uL RBC 3.90 L (4.30-5.90) m/uL Hgb 12.3 L (13.0-17.5) gm/dL Hct 35.7 L (39.0-53.0) % MCV 91.6 (80.0-100.0) fL MCH 31.4 (25.0-35.0) pg MCHC 34.3 (31.0-37.0) g/dL RDW 14.7 (11.5-15.5) % Plt Count 179 (150-450) k/uL MPV 7.6 Neutrophils % 56 % Lymphocytes % 36 % Monocytes % 5 % Eosinophils % 2 % Basophils % 0 % Neutrophils # 4.3 (1.3-7.7) k/uL Lymphocytes # 2.8 (1.0-4.8) k/uL Monocytes # 0.4 (0-1.0) k/uL Eosinophils # 0.2 (0-0.7) k/uL Basophils # 0.0 (0-0.2) k/uL PT 10.8 (9.0-12.0) sec INR 1.0 (<1.2) APTT 21.5 L (22.0-30.0) sec Sodium 140 (137-145) mmol/L Potassium 3.3 L (3.5-5.1) mmol/L Chloride 106 (98-107) mmol/L Carbon Dioxide 24 (22-30) mmol/L Anion Gap 10 mmol/L BUN 13 (9-20) mg/dL Creatinine 0.56 L (0.66-1.25) mg/dL Est GFR (CKD-EPI)AfAm >90 (>60 ml/min/1.73 sqM) Est GFR (CKD-EPI)NonAf >90 (>60 ml/min/1.73 sqM) Glucose 187 H (74-99) mg/dL Calcium 8.4 (8.4-10.2) mg/dL Magnesium 1.5 L (1.6-2.3) mg/dL Total Bilirubin 0.6 (0.2-1.3) mg/dL AST 25 (17-59) U/L ALT 21 (4-49) U/L Alkaline Phosphatase 136 H (38-126) U/L Troponin I (0.000-0.034) ng/mL Total Protein 6.4 (6.3-8.2) g/dL Albumin 3.7 (3.5-5.0) g/dL 01/02/23 Range/Units 22:03 WBC (3.8-10.6) k/uL RBC (4.30-5.90) m/uL Hgb (13.0-17.5) gm/dL Hct (39.0-53.0) % MCV (80.0-100.0) fL MCH (25.0-35.0) pg MCHC (31.0-37.0) g/dL RDW (11.5-15.5) % Plt Count (150-450) k/uL MPV Neutrophils % % Lymphocytes % % Monocytes % % Eosinophils % % Basophils % % Neutrophils # (1.3-7.7) k/uL Lymphocytes # (1.0-4.8) k/uL Monocytes # (0-1.0) k/uL Eosinophils # (0-0.7) k/uL Basophils # (0-0.2) k/uL PT (9.0-12.0) sec INR (<1.2) APTT (22.0-30.0) sec Sodium (137-145) mmol/L Potassium (3.5-5.1) mmol/L Chloride (98-107) mmol/L Carbon Dioxide (22-30) mmol/L Anion Gap mmol/L BUN (9-20) mg/dL Creatinine (0.66-1.25) mg/dL Est GFR (CKD-EPI)AfAm (>60 ml/min/1.73 sqM) Est GFR (CKD-EPI)NonAf (>60 ml/min/1.73 sqM) Glucose (74-99) mg/dL Calcium (8.4-10.2) mg/dL Magnesium (1.6-2.3) mg/dL Total Bilirubin (0.2-1.3) mg/dL AST (17-59) U/L ALT (4-49) U/L Alkaline Phosphatase (38-126) U/L Troponin I <0.012 (0.000-0.034) ng/mL Total Protein (6.3-8.2) g/dL Albumin (3.5-5.0) g/dL - EKG Data -: EKG Interpreted by Me EKG shows normal: axis (Normal), intervals (Normal), QRS complexes (Normal) Interpretation: nonspecific ST-T wave changes, other (Rhythm appears to be atrial fibrillation with rate of 145 bpm) Disposition Clinical Impression: Fall, Atrial fibrillation with rapid ventricular response, Closed left hip fracture Disposition: ADMITTED IP TO THIS [facility] Condition: Stable Is patient prescribed a controlled substance at d/c from ED?: No
[2023-01-02 22:42] LABS: Basophils % (A) 0 %; Eosinophils # (A) 0.2 k/uL (0-0.7); Eosinophils % (A) 2 %; HCT 35.7 % (39.0-53.0); HGB 12.3 gm/dL (13.0-17.5); Lymphocytes # (A) 2.8 k/uL (1.0-4.8); Lymphocytes % (A) 36 %; MCH 31.4 pg (25.0-35.0); MCHC 34.3 g/dL (31.0-37.0); MCV 91.6 fL (80.0-100.0); Mean Platelet Volume 7.6; Monocytes # (A) 0.4 k/uL (0-1.0); Monocytes % (A) 5 %; Neutrophils # (A) 4.3 k/uL (1.3-7.7); Neutrophils % (A) 56 %; Platelet Count 179 k/uL (150-450); RDW 14.7 % (11.5-15.5); WBC 7.8 k/uL (3.8-10.6)
[2023-01-02] MEDS: DILTIAZEM 125 MG in SODIUM CHLORIDE 0.9% 100 ML IV SCH ×2 (22:46→22:52)
[2023-01-02 22:48] LABS: ALT 21 U/L (4-49); AST 25 U/L (17-59); African American GFR (CKD) >90 (>60 ml/min/1.73 sqM); Albumin 3.7 g/dL (3.5-5.0); Alkaline Phosphatase 136 U/L (38-126); Anion Gap 10 mmol/L; Blood Urea Nitrogen 13 mg/dL (9-20); Calcium 8.4 mg/dL (8.4-10.2); Carbon Dioxide 24 mmol/L (22-30); Chloride 106 mmol/L (98-107); Glucose 187 mg/dL (74-99); Magnesium 1.5 mg/dL (1.6-2.3); Non-African American GFR(CKD) >90 (>60 ml/min/1.73 sqM); Potassium 3.3 mmol/L (3.5-5.1); Sodium 140 mmol/L (137-145); Total Bilirubin 0.6 mg/dL (0.2-1.3); Total Protein 6.4 g/dL (6.3-8.2)
[2023-01-02 22:54] LABS: Partial Thromboplastin Time 21.5 sec (22.0-30.0); Prothrombin Time 10.8 sec (9.0-12.0)
[2023-01-02] MEDS ORDERED: HYDROmorphone 1 MG/ML 1 ML SYRINGE IVP STA (23:44)
[2023-01-03] MEDS ORDERED: ACETAMINOPHEN TAB 325 MG TAB PO PRN (00:26)
[2023-01-03] MEDS ORDERED: NALOXONE 0.4 MG/ML 1 ML VIAL IV PRN (00:26)
[2023-01-03] MEDS ORDERED: HYDROmorphone 0.5 MG/0.5 ML SYRINGE IVP PRN (00:26)
--- NOTE | 2023-01-03 01:01 | XR ---
EXAM: XR Pelvis, 1 or 2 Views CLINICAL HISTORY: ITS. REASON XR Reason: fall injury TECHNIQUE: Frontal view of the pelvis. COMPARISON: No relevant prior studies available. FINDINGS: Bones/joints: Displaced intertrochanteric hip fracture, in varus. No dislocation. Soft tissues: Unremarkable. IMPRESSION: Displaced intertrochanteric hip fracture, in varus.
--- NOTE | 2023-01-03 01:01 | XR ---
EXAM: XR Chest, 1 View CLINICAL HISTORY: ITS.REASON XR Reason: dysrhythmia TECHNIQUE: Frontal view of the chest. COMPARISON: CXR December 28, 2022. FINDINGS: Lungs: Unremarkable. No consolidation. Pleural space: Unremarkable. No pneumothorax. Heart: Cardiomegaly. Mediastinum: Unremarkable. Bones/joints: Unremarkable. IMPRESSION: No acute findings in the chest.
[2023-01-03] MEDS: HYDROmorphone 1 MG/ML 1 ML SYRINGE IVP PRN ×6 (02:20→20:02)
[2023-01-03] MEDS: SODIUM CHLORIDE 0.9% 1,000 ML IV SCH ×2 (02:58→15:07)
[2023-01-03] MEDS: FAMOTIDINE 20 MG TAB PO SCH ×2 (08:30→20:00)
[2023-01-03] MEDS: METOPROLOL TARTRATE 50 MG TAB PO SCH ×2 (10:12→20:00)
[2023-01-03] MEDS: HYDROcodone/APAP 5-325MG 1 EACH TAB PO PRN ×2 (10:12→18:29)
--- NOTE | 2023-01-03 10:38 | P.HPOR ---
History of Present Illness H&P Date: 01/03/23 Chief Complaint: Left hip pain The patient is 87-year-old male who seen and examined today at bedside. The patient is moderately confused and is not able to give good history. Apparently patient had fallen at his residence and was complaining of severe left hip pain. the patient apparently had been evaluated 2 days for and was not found have any evidence of fracture but when he presented again he was found have displaced left intertrochanteric femur fracture at his hip. Patient was unable ambulate. He locates pain around his left hip. He denies other injury. He is quite confused and he is not able to give any history of events. He definitely complains of pain at his left hip and increased pain with any sort of motion or activity. He denies any pain in his upper extremities his neck or head or his other leg. He denies any chest pain. He denies any shortness of breath. It is difficult to determine if his history is reliable. Review of Systems As stated per HPI. The patient is not a reliable historian. He denies prior pa in in his left hip. 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 Past trauma Past Anesthesia/Blood Transfusion Reactions: No Reported Reaction Date of Last Stent Placement:: 2014 Past Psychological History: No Psychological Hx Reported Additional Psychological History / Comment(s): Pt spouse as of 4 months ago. He drives. He is an [employer] and served over in [place]. Smoking Status: Never smoker Past Alcohol Use History: None Reported Past Drug Use History: None Reported - Past Family History Mother Additional Family Medical History / Comment(s): Mother had mental health problems. Father Family Medical History: No Reported History Medications and Allergies Home Medications Medication Instructions Recorded Confirmed Type Apixaban [Eliquis] 5 mg PO BID #60 tab 09/26/16 12/28/22 Rx Phenytoin Sodium Extended 200 mg PO TID 12/28/22 12/28/22 History [Dilantin] Nystatin 100,000 Unit/gm Powd 1 applic TOPICAL BID #4 oz 01/01/23 Rx [Mycostatin Powder] cefUROXime axetiL [Ceftin] 500 mg PO BID 7 Days #14 tab 01/01/23 Rx Atorvastatin [Lipitor] 80 mg PO HS 01/03/23 01/03/23 History Isosorbide Mononitrate ER [Imdur] 30 mg PO DAILY 01/03/23 01/03/23 History Metoprolol Tartrate 25 mg PO 01/03/23 History Allergies Allergy/AdvReac Type Severity Reaction Status Date / Time Penicillins Allergy Rash/Hives Verified 01/02/23 22:04 Physical Examination Osteopathic Statement: *. No significant issues noted on an osteopathic structural exam other than those noted in the History and Physical/Consult. - Hip left Gait: other (The patient is unable to ambulate. He has great pain in his left hip with any sort of motion even when laying still.) Tenderness with palpation: anterior (The patient is generally confused but attempts to answer some questions. He is in some distress with his pain. He is tender around his left hip and with any motion of his left leg. His left leg is shortened and externally rotated. Compartments are soft. Cap refill less than 2 seconds. He has s) Pain with motion: internal rotation and hip flexion (His leg is shortened and external rotated. He is able to wiggle his toes. Sensation is intact. His upper extremities and right lower shoulder manner nontender. His abdomen soft. His neck is nontender. HEENT normocephalic/atraumatic) Results - Labs Labs: Abnormal Lab Results - Last 24 Hours (Table) 01/02/23 01/02/23 01/02/23 Range/Units 22:03 22:03 22:03 RBC 3.90 L (4.30-5.90) m/uL Hgb 12.3 L (13.0-17.5) gm/dL Hct 35.7 L (39.0-53.0) % APTT 21.5 L (22.0-30.0) sec Potassium 3.3 L (3.5-5.1) mmol/L Creatinine 0.56 L (0.66-1.25) mg/dL Glucose 187 H (74-99) mg/dL Magnesium 1.5 L (1.6-2.3) mg/dL Alkaline Phosphatase 136 H (38-126) U/L H & H 01/02/23 Range/Units 22:03 Hgb 12.3 L (13.0-17.5) gm/dL Hct 35.7 L (39.0-53.0) % Coagulation 01/02/23 Range/Units 22:03 INR 1.0 (<1.2) Result Diagrams: 01/02/23 22:03 01/02/23 22:03 - Diagnostic results Hip x-ray: report reviewed, image reviewed (Left hip and pelvis x-rays show displaced intertrochanteric 3 part proximal femur fracture with displacement and angulation) Assessment and Plan Assessment: Left hip intertrochanteric femur fracture status post fall Dementia Inability to ambulate Atrial fibrillation with rapid ventricular response Plan: Left hip intertrochanteric femur fracture status post fall Dementia Inability to ambulate Atrial fibrillation with rapid ventricular response In regards to the patient's left hip he has a displaced intertrochanteric femur fracture. He has significant pain and is unable ambulate due to this. The best way to try to give him a chance to heal and mobilize again would be to pursue surgical intervention. I would recommend vertical intervention with open reduction internal fixation and intramedullary hip screw fixation. I tried to explain this to the patient. It is difficult to determine if he is able to understand. He seems to understand that he will need surgery for his left hip. He would like to pursue this as soon as he is able. The saphenous been in contact with his son who is his power of litigation attorney and will obtain consent for surgical intervention. I tried to explain the risk of occasions alternatives and benefits of surgery and the nature of his injury with him. The patient has a severe fracture and this will put him at significant risk for difficulty with ambulation and mobilization now and in the future. If if he were to pursue conservative care is likely likely that he'll be unable to get out of bed or do any sort of mobilization. Surgery would give him the best chance of increasing his mobility controlling his pain and allowing him to get as close possible to his baseline status of mobility. We would like to plan for surgical intervention as soon as possible. Patient has findings of atrial fibrillation with rapid ventricular response. He has not yet been seen by cardiology and medicine and we will need control of his cardiac status as well as clearance in order to pursue surgery. Hopefully we can pursue surgery on Thursday if able. We'll make him nothing by mouth after midnight and plan for possible surgery Thursday if he is cleared from medicine and cardiology.
[2023-01-03 11:17] LABS: African American GFR (CKD) >90 (>60 ml/min/1.73 sqM); Anion Gap 11 mmol/L; Blood Urea Nitrogen 16 mg/dL (9-20); Calcium 8.1 mg/dL (8.4-10.2); Carbon Dioxide 25 mmol/L (22-30); Chloride 106 mmol/L (98-107); Glucose 158 mg/dL (74-99); Non-African American GFR(CKD) >90 (>60 ml/min/1.73 sqM); Potassium 3.6 mmol/L (3.5-5.1); Sodium 142 mmol/L (137-145)
[2023-01-03] MEDS: MAGNESIUM SULFATE-D5W PMX 1 GM in DEXTROSE/WATER 1 100ML.BAG IVPB SCH ×2 (16:22→17:34)
[2023-01-03] MEDS: PHENYTOIN SODIUM EXTENDED 100 MG CAP PO SCH ×2 (16:23→20:00)
--- NOTE | 2023-01-03 16:52 | CONS ---
CONSULTATION PRESENTING COMPLAINT: Left hip pain, status post fall and fracture. HISTORY OF PRESENT ILLNESS: This is an 87-year-old gentleman with past medical history significant for atrial fibrillation, coronary artery disease, COPD, hypertension, history of seizure disorder and syncope presented to the emergency department apparently after the patient had fallen at this residence and complained of severe left hip pain. The patient, at the time of presentation had an x-ray done which showed displaced left hip femur fracture. The patient was unable to ambulate. At the time of presentation, the patient was evaluated on the medical floor and appears disoriented, the patient also noted to be in atrial fibrillation with rapid ventricular response and is on Cardizem drip with consultations from Cardiology pending for preoperative clearance. The patient already on pain control. Blood work obtained at the time of presentation showed white cell count of 7.8, hemoglobin of 12.3, platelet count of 179. INR of 1. Serum chemistry showed sodium of 140, potassium 3.3, chloride 106, BUN 13, creatinine 0.56, magnesium 1.5. The patient appears disoriented and review of systems is limited, except for significant hip pain. PAST MEDICAL HISTORY: AFib, coronary artery disease, COPD, hypertension, hyperlipidemia, history of ME, seizure disorder, syncope, renal disease. PAST SURGICAL HISTORY: Significant for cardiac catheterization, hernia repair, orthopedic surgery. ALLERGIES: To penicillin. SOCIAL HISTORY: Per chart review, never smoked. FAMILY HISTORY: History of health problems in mother. History limited secondary to the patient's mentation. PHYSICAL EXAMINATION: GENERAL: The patient is alert; however, disoriented, oriented to person and situation. CONSTITUTIONAL: Appears in distress. Ill appearance. HEENT: Normocephalic, atraumatic. CARDIOVASCULAR: Tachycardia. Irregular rhythm. EXTREMITIES: 1+ lower extremity edema. PULMONARY: Clear to auscultation bilaterally. No wheezes, no rhonchi, no rales. ABDOMEN: Soft, nontender. MUSCULOSKELETAL: Pain at the site of palpation. Asymmetry noted. Swelling noted on left hip. NEUROLOGICAL: Alert and oriented x2. Does appear disoriented. Exam limited. SKIN: No apparent skin breakdown noted. ASSESSMENT: 1. Status post fall with left hip intratrochanteric fracture. 2. Acute encephalopathy on top of dementia. 3. Atrial fibrillation with rapid ventricular response. 4. Essential hypertension. PLAN: 1. Orthopedic, primary is following, plan for surgical repair once Cardiology gives clearance. 2. Cardiology on consult. 3. Home meds reviewed. Continue the patient on metoprolol; continue the patient on Cardizem drip. 4. History of seizure disorder. Continue the patient on dilantin. 5. Eliquis on hold in anticipation of surgical procedure. 6. Continue the patient on telemonitoring. 7. Follow up on basic metabolic panel and magnesium levels. 8. The patient noted to have hypomagnesemia. Needs magnesium replaced. Total time spent on consult, 35 minutes. MMODL / IJN: [id number] /
--- NOTE | 2023-01-03 18:02 | P.CRDCN ---
History of Present Illness Consult date: 01/03/23 History of present illness: History of Present Illness: The patient is an 87-year-old male who presented after a fall and a fractured hip. Consultation was requested for preoperative evaluation. The patient has a known history of CAD, status post stenting of the LAD in 2011, history of cardiomyopathy, chronic persistent atrial fibrillation. He has been very limited in his physical activity. He is awake but confused, unable to answer questions. He was in atrial flutter ablation with rapid ventricle response and was initiated on IV Cardizem in addition to beta jono. His rate is under better control at this time. He was anticoagulated as an outpatient. I am unable to obtain any history from him at this time. Medications: Lipitor 80 mg daily, metoprolol 50 mg twice a day, lisinopril 10 mg daily, isosorbide mononitrate 30 mg daily,Eliquis 5 mg twice a day Review of Systems: Could not be obtained Physical Examination: 87-year-old male, awake and confused ,Blood pressure 108/60, Heart rate 80 Head: Normocephalic. Eyes: Sclerae nonicteric. Neck: Good carotid upstroke, no bruit, no jugular venous distention. Lungs: Clear to auscultation. Heart: Irregular rate and rhythm, S1-S2, no S3, no rub. Systolic ejection murmur. Abdomen: Soft nontender, positive bowel sounds no organomegaly. Extremities: No edema, intact distal pulses. Labs: Potassium 3.6, BUN 16, creatinine 0.58. Hemoglobin 12.3. Troponin less than 0.012. Chest x-ray with no acute infiltrate. Hip x-ray was displaced intra- trochanteric hip fracture EKG: Not available Impression: 1. Status post mechanical fall and fractured hip 2. Chronic persistent atrial fibrillation, anticoagulated 3. History of CAD 4. History of ischemic cardiomyopathy 5. History of dementia Plan: 1. Continue beta jono and IV Cardizem for now 2. Start statin 3. Hold anticoagulation 4. Obtain an echocardiogram with Doppler 5. The patient is at an increased risk for surgical intervention but he has no active evidence of CHF or acute ischemia. 6. Restart anticoagulation when acceptable by surgery 7. 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 Past trauma Past Anesthesia/Blood Transfusion Reactions: No Reported Reaction Date of Last Stent Placement:: 2014 Past Psychological History: No Psychological Hx Reported Additional Psychological History / Comment(s): Pt spouse as of 4 months ago. He drives. He is an [employer] and served over in [place]. Smoking Status: Never smoker Past Alcohol Use History: None Reported Past Drug Use History: None Reported - Past Family History Mother Additional Family Medical History / Comment(s): Mother had mental health problems. Father Family Medical History: No Reported History Medications and Allergies Home Medications Medication Instructions Recorded Confirmed Type Apixaban [Eliquis] 5 mg PO BID #60 tab 09/26/16 01/03/23 Rx Nystatin 100,000 Unit/gm Powd 1 applic TOPICAL BID #4 oz 01/01/23 01/03/23 Rx [Mycostatin Powder] cefUROXime axetiL [Ceftin] 500 mg PO BID 7 Days #14 tab 01/01/23 01/03/23 Rx Phenytoin Sodium Extended 300 mg PO TID 01/03/23 01/03/23 History [Dilantin] Allergies Allergy/AdvReac Type Severity Reaction Status Date / Time Penicillins Allergy Rash/Hives Verified 01/02/23 22:04 Physical Exam Vitals: Vital Signs Temp Pulse Pulse Resp BP BP Pulse Ox 01/03/23 16:22 98.0 F 79 16 108/61 98 01/03/23 15:55 95 06/03/23 12:17 131 H 24 124/69 97 01/03/23 08:29 97.4 F L 141 H 26 H 132/68 97 01/03/23 08:00 26 H 01/03/23 06:35 97.9 F 116 H 30 H 123/69 93 L 01/03/23 02:10 98.3 F 130 H 28 H 166/77 98 01/03/23 01:08 134 H 17 168/97 96 01/03/23 00:13 160 H 01/03/23 00:04 165 H 01/02/23 21:59 98.6 F 141 H 20 99 Intake and Output 01/03/23 01/03/23 01/03/23 06:59 14:59 22:59 Intake Total 7.416 118 Output Total 750 Balance 7.416 -632 Intake: Intake, IV Titration 7.416 Amount Diltiazem 125 mg In 7.416 Sodium Chloride 0.9% 100 ml @ 5 MG/HR 5 mls/hr IV .Q24H [facility] Rx#:[id number] Oral 118 Output: Urine 750 Other: Voiding Method External Catheter External Catheter External Catheter # Voids 0 Weight 105.5 kg Results 01/02/23 22:03 01/03/23 10:45 Cardiac Enzymes 01/02/23 01/02/23 Range/Units 22:03 22:03 AST 25 (17-59) U/L Troponin I <0.012 (0.000-0.034) ng/mL Coagulation 01/02/23 Range/Units 22:03 PT 10.8 (9.0-12.0) sec APTT 21.5 L (22.0-30.0) sec CBC 01/02/23 Range/Units 22:03 WBC 7.8 (3.8-10.6) k/uL RBC 3.90 L (4.30-5.90) m/uL Hgb 12.3 L (13.0-17.5) gm/dL Hct 35.7 L (39.0-53.0) % Plt Count 179 (150-450) k/uL Comprehensive Metabolic Panel 01/02/23 01/03/23 Range/Units 22:03 10:45 Sodium 140 142 (137-145) mmol/L Potassium 3.3 L 3.6 (3.5-5.1) mmol/L Chloride 106 106 (98-107) mmol/L Carbon Dioxide 24 25 (22-30) mmol/L BUN 13 16 (9-20) mg/dL Creatinine 0.56 L 0.58 L (0.66-1.25) mg/dL Glucose 187 H 158 H (74-99) mg/dL Calcium 8.4 8.1 L (8.4-10.2) mg/dL AST 25 (17-59) U/L ALT 21 (4-49) U/L Alkaline Phosphatase 136 H (38-126) U/L Total Protein 6.4 (6.3-8.2) g/dL Albumin 3.7 (3.5-5.0) g/dL Current Medications Generic Name Dose Route Start Last Admin Trade Name Freq PRN Reason Stop Dose Admin Acetaminophen 650 mg 01/03/23 00:26 Acetaminophen Tab 325 Mg Tab PO Q6HR PRN Mild Pain or Fever > 100.5 Hydrocodone Bitart/Acetaminophen 1 each 01/03/23 03:13 01/03/23 10:12 Hydrocodone/Apap 5-325mg 1 Each Tab PO 1 each Q6HR PRN Administration Pain Diazepam 5 mg 01/03/23 03:11 01/03/23 06:36 Diazepam 5 Mg/Ml 2 Ml Inj IVP 5 mg Q8HR PRN Administration Muscle Spasm Famotidine 20 mg 01/03/23 09:00 01/03/23 08:30 Famotidine 20 Mg Tab PO 20 mg BID MARYBEL Administration Hydromorphone HCl 1 mg 01/03/23 00:26 01/03/23 02:20 Hydromorphone 1 Mg/Ml 1 Ml Syringe IVP 1 mg Q3HR PRN Administration Severe Pain (Scale 7 to 10) Hydromorphone HCl 2 mg 01/03/23 03:13 01/03/23 16:23 Hydromorphone 1 Mg/Ml 1 Ml Syringe IVP 2 mg Q3HR PRN Administration Severe Pain (Scale 7 to 10) Diltiazem HCl 125 mg/ Sodium 125 mls @ 5 mls/hr 01/02/23 22:45 01/03/23 00:13 Chloride IV 15 mg/hr .Q24H MARYBEL 15 mls/hr Infusion 5 MG/HR Sodium Chloride 1,000 mls @ 75 mls/hr 01/03/23 00:30 01/03/23 15:07 Saline 0.9% IV Not Given .[id number] [facility] Magnesium Sulfate/Dextrose 1 100 mls @ 100 mls/hr 01/03/23 17:00 01/03/23 17:34 gm/ IV Solution IVPB 01/03/23 18:59 100 mls/hr Q1H MARYBEL Administration Metoprolol Tartrate 50 mg 01/03/23 10:15 01/03/23 10:12 Metoprolol Tartrate 50 Mg Tab PO 50 mg BID MARYBEL Administration Naloxone HCl 0.2 mg 01/03/23 00:26 Naloxone 0.4 Mg/Ml 1 Ml Vial IV Q2M PRN Opioid Reversal Phenytoin Sodium 300 mg 01/03/23 16:00 01/03/23 16:23 Phenytoin Sodium Extended 100 Mg Cap PO 300 mg TID MARYBEL Administration Intake and Output 01/03/23 01/03/23 01/03/23 06:59 14:59 22:59 Intake Total 7.416 118 Output Total 750 Balance 7.416 -632 Intake: Intake, IV Titration 7.416 Amount Diltiazem 125 mg In 7.416 Sodium Chloride 0.9% 100 ml @ 5 MG/HR 5 mls/hr IV .Q24H [facility] Rx#:[id number] Oral 118 Output: Urine 750 Other: Voiding Method External Catheter External Catheter External Catheter # Voids 0 Weight 105.5 kg 01/02/23 22:03 01/03/23 10:45
[2023-01-03] MEDS ORDERED: ATORVASTATIN 40 MG TAB PO SCH (18:15)
[2023-01-03] MEDS: ATORVASTATIN 40 MG TAB PO SCH (20:00)
[2023-01-04] MEDS: HYDROmorphone 1 MG/ML 1 ML SYRINGE IVP PRN ×4 (01:13→18:21)
[2023-01-04] MEDS: DILTIAZEM 125 MG in SODIUM CHLORIDE 0.9% 100 ML IV SCH ×2 (01:14→16:08)
[2023-01-04] MEDS: SODIUM CHLORIDE 0.9% 1,000 ML IV SCH ×3 (04:15→17:58)
[2023-01-04 07:33] LABS: HCT 29.9 % (39.0-53.0); MCHC 33.4 g/dL (31.0-37.0); MCV 95.9 fL (80.0-100.0); Mean Platelet Volume 8.4; Platelet Count 143 k/uL (150-450); RBC 3.12 m/uL (4.30-5.90); RDW 14.8 % (11.5-15.5); WBC 13.8 k/uL (3.8-10.6)
[2023-01-04 08:03] LABS: Magnesium 2.1 mg/dL (1.6-2.3); Potassium 4.1 mmol/L (3.5-5.1)
[2023-01-04] MEDS ORDERED: ROCURONIUM 10 MG/ML (5 ML VIAL) IV ONE (08:10)
[2023-01-04] MEDS ORDERED: LACTATED RINGERS 1,000 ML IV ONE (08:10)
[2023-01-04] MEDS ORDERED: SUCCINYLCHOLINE CHLORIDE 200 MG/10 ML VIAL IV ONE (08:10)
[2023-01-04] MEDS ORDERED: PHENYLEPHRINE-0.9% NACL SYG 1,000 MCG/10 ML SYRINGE ONE (08:10)
[2023-01-04] MEDS ORDERED: GLYCOPYRROLATE 0.2 MG/ML 2 ML VIAL ONE (08:10)
[2023-01-04] MEDS ORDERED: PROPOFOL 10 MG/ML 20 ML VIAL IV ONE (08:10)
[2023-01-04] MEDS ORDERED: fentaNYL (PF) 50 MCG/ML 2 ML AMP ONE (08:10)
[2023-01-04] MEDS ORDERED: LIDOCAINE 2% INJ 20 MG/ML (2 ML VIAL) ONE (08:10)
[2023-01-04] MEDS ORDERED: NEOSTIGMINE 1 MG/ML 10 ML VIAL ONE (08:10)
[2023-01-04] MEDS ORDERED: SODIUM CHLORIDE 0.9% 150 ML with ceFAZolin 3,000 MG IV ONE ×2 (08:25)
[2023-01-04] MEDS ORDERED: ceFAZolin 1,000 MG in SODIUM CHLORIDE 0.9% 1,000 ML IRRIGATION ONE (09:02)
[2023-01-04] MEDS ORDERED: NALOXONE 0.4 MG/ML 1 ML VIAL IV PRN (09:59)
[2023-01-04] MEDS ORDERED: ONDANSETRON 4 MG/2 ML VIAL IVP PRN (09:59)
[2023-01-04] MEDS ORDERED: HYDROmorphone 1 MG/ML 1 ML SYRINGE IVP PRN (09:59)
[2023-01-04] MEDS ORDERED: BENZOCAINE/MENTHOL LOZENG 1 EACH LOZENGE MUCOUS MEM PRN (09:59)
[2023-01-04] MEDS ORDERED: HYDROmorphone 0.5 MG/0.5 ML SYRINGE IVP PRN (09:59)
--- NOTE | 2023-01-04 10:10 | P.OP ---
Date of Procedure: 01/04/23 Preoperative Diagnosis: Traumatic left hip intertrochanteric femur fracture with displacement and angulation Inability to ambulate Dementia Postoperative Diagnosis: Same Anesthesia: GETA Pathology: other (Proximal femur reaming sent to pathology) Condition: stable Disposition: PACU Description of Procedure: Preoperative diagnosis: Traumatic left hip intertrochanteric femur fracture with displacement and angulation Inability to ambulate Dementia Postoperative diagnosis: Same Procedure: intertrochanteric hip screw placement Use of fluoroscopic guidance Closed reduction Surgeon: Dr. Pedroza Asst.: Surgical first Asst. who is present that the entire the case persistence during positioning dissection exposure placement of hardware and closure Anesthesia: Gen. per Dr. Cherry Estimated blood loss: Approximately 250 mL Components implanted: [employer] intramedullary hip screw 11.5 x 1 25 with a 120 mm lag screw and a compression screw with a distal locking screw Disposition: To recovery room in good stable condition Operative indications The patient sustained a injury and suffered a hip fracture at the inter- trochanteric area of his femur which was displaced and angulated. He apparently had an unwitnessed fall and had severe unrelenting pain at his left hip. We were involved in the case in regard to his hip fracture. He was also found to have atrial fibrillation with rapid ventricular response but essentially stable blood pressure. After evaluation it was determined that they would be a candidate for hip internal fixation and stabilization via surgical intervention. This would give them the best chance of mobilization and ambulation. We discussed the range of treatment options from conservative to surgical. They elected proceed with surgical intervention. This was discussed with the patient as well as the patient's son who is the power of professional security officer. The patient had complete evaluation with medicine and cardiology prior to surgery. We answered their questions to the best of our ability healing which they can understand. They signed an informed consent. Operative summary After obtaining informed consent evaluation by anesthesia, preoperative evaluation and clearance for medical service, the patient was identified and prepped Mann area and the surgical site was marked. There brought to the operating room where the given appropriate anesthesia by the anesthesia department in standard fashion without any complications. Once the anesthesia was established we were able to position the patient. The patient was placed on a fracture table with a well-padded perineal post. The operative side was placed in a foot holt stirrup which was well-padded well molded and placed in gentle in-line traction. The right nonoperative leg was placed in a padded stirrup. C-arm was brought in and we performed a closed reduction technique at the left hip. We are able to get good alignment good position of the intertrochanteric fracture with gentle reduction techniques and traction utilizing the fracture table. Once patient was well positioned lower extremity was prepped and draped in normal standard sterile fashion. An appropriate keystone protocol and timeout was completed and were able to proceed with surgery. He started point just proximal to the greater trochanter was established and a median incision approximately 2 inches in length approximately to the greater trochanter. I dissected down through the fascia and I was able to expose the tip of the g reater trochanter. A sharp starting hole was established at the tip of the greater trochanter near the junction of the anterior and middle third. Positioning was confirmed with C-arm guidance. I was able to start the awl into the bone and then use a guidepin at the starting point establish down to the level of the lesser trochanter at the intramedullary space. I then used a starting reamer for the greater trochanter placed over the guidepin and reamed down appropriately under C-arm guidance. I was unable to place a guidepin into the intramedullary aspect of the femur and then reamed appropriately to the appropriate length. The positioning was confirmed on C-arm guidance. With the femur appropriately reamed I then chose the appropriate size intramedullary valeriy which was connected to the appropriate jig. The jig was checked for alignment. The area was copiously irrigated and suctioned dry and we're able place the valeriy at intramedullary space through the starting hole appropriately. It was seated down for appropriate position to align the lag pin into the femoral neck and head. A second incision was established at the site for the placement of the lag screw area and the guide was established at the lateral aspect of the femur and a guidepin was drilled into the femoral neck and head and near center center position. With this appropriate alignment and position where a reamer over the guidepin making sure not to penetrate the articular surface. The position was confirmed on C-arm guidance in AP and lateral positions. With this established we were able to place the appropriate size lag screw after measuring. Lag screw was placed into the femoral neck and head good alignment good position with excellent bony purchase. It was appropriately aligned and we placed a locking screw through the valeriy appropriately and checked that the position was established. I was able to drill and place the compression screw immediately adjacent and inferior to the lag screw which gave good compression across the fracture site in good alignment and position. With the area in good position able place a distal locking screw. We utilized the guide sleeve a separate incision was made at the skin. The guide sleeve was placed in the lateral aspect of the femur and the distal locking screw hole was established through the femur and distal locking hole of the intramedullary valeriy the cortical bone at that area was quite hard.. It was measured appropriately and a distal locking screw was placed in in the distal locking static hole. I was able to enter and cross into the distal screw hole of the intramedullary valeriy and into the far cortex. The cortex was quite hard and upon screwing in the distal locking screw. Threads at the interface of the screwdriver and screw head started to strip. I tried to back this out but it stripped as well. I was unable to move the screw further. It was left proud approximately 3 mm. It had good purchase in the bicortical and did not seem to be a risk of loosening or displacement. The position was checked to make sure it was through the appropriate hole in the intramedullary valeriy. The cortical screws quite hard. With this established we're able to remove the jig completely from the valeriy and final images were taken which showed the proud alignment alignment and position of the distal locking screw but excellent alignment and position of the remainder hardware and the fracture. With the valeriy in place and the fracture stable, although the incision sites were copiously irrigated and suctioned dry. Good hemostasis was maintained. Deep fascial layers were closed with #1 Vicryl. Subcu tissue was closed with 2-0 Vicryl. Subcuticular tissues closed with 3-0 Vicryl. Was are cleaned and dried with dressed with EXofn glue and Opteform dressing Drapes were broken down, the hip was held in stable position with the post being removed safely once the positioning was stabilized. The patient was then transferred back to their hospital bed being careful to maintain the hip and C- spine alignment and airway. Once stable to patient was transferred back to the postanesthesia care unit to be readmitted for pain control and DVT prophylaxis medical management and monitoring and mobilization we will continue follow patient closely throughout their postoperative course. We will restart his Eliquis in the morning
[2023-01-04] MEDS: PHENYTOIN SODIUM EXTENDED 100 MG CAP PO SCH ×4 (11:34→21:11)
[2023-01-04] MEDS: METOPROLOL TARTRATE 50 MG TAB PO SCH ×3 (11:34→21:06)
[2023-01-04] MEDS: FAMOTIDINE 20 MG TAB PO SCH ×3 (11:35→21:09)
--- NOTE | 2023-01-04 14:23 | P.PN ---
Subjective Progress Note Date: 01/04/23 87-year-old male 87-year-old male who presented after a fall and a fractured hip. who presented after a fall and a fractured hip. S/p left Hip fracture repair C/o Pain in HIP Disoriented Objective - Vital Signs Vital signs: Vital Signs Temp 97.9 F 01/04/23 12:00 Pulse 122 H 01/04/23 12:00 Resp 18 01/04/23 12:00 BP 122/67 01/04/23 12:00 Pulse Ox 93 L 01/04/23 12:00 FiO2 Intake & Output 01/03/23 01/04/23 01/04/23 18:59 06:59 18:59 Intake Total 235.584 851 Output Total 750 180 250 Balance -514.416 -180 601 Intake: IV 851 Intake, IV Titration 117.584 Amount Diltiazem 125 mg In 117.584 Sodium Chloride 0.9% 100 ml @ 5 MG/HR 5 mls/hr IV .Q24H [facility] Rx#:[id number] Oral 118 Output: Urine 750 180 Estimated Blood Loss 250 Other: Voiding Method External Catheter Indwelling Catheter Indwelling Catheter - Exam General : Disoriented, distress Head: Normocephalic. Eyes: Sclerae nonicteric. Neck: , no bruit, no jugular venous distention. Lungs: Clear to auscultation. Heart: Irregular rate and rhythm,Tachycardia S1-S2, no S3, no rub. Systolic murmur. Abdomen: Soft nontender, positive bowel sounds no organomegaly. Musculoskeletal: Left Hip frcature repair, NO Hematoma Extremities: No edema, intact distal pulses. - Labs CBC & Chem 7: 01/04/23 06:07 01/04/23 06:07 Labs: Abnormal Lab Results - Last 24 Hours (Table) 01/04/23 01/04/23 Range/Units 06:07 06:07 WBC 13.8 H (3.8-10.6) k/uL RBC 3.12 L (4.30-5.90) m/uL Hgb 10.0 L D (13.0-17.5) gm/dL Hct 29.9 L (39.0-53.0) % Plt Count 143 L (150-450) k/uL BUN 23 H (9-20) mg/dL Glucose 154 H (74-99) mg/dL Calcium 8.0 L (8.4-10.2) mg/dL Assessment and Plan Assessment: ASSESMENT 1. Status post mechanical fall and fractured Left hip 2. Chronic persistent atrial fibrillation w RVR 3. History of CAD 4. History of ischemic cardiomyopathy 5. History of dementia 6.Seziure Disorder * Continue IV cardizem Drip, Cardio Following * optimize electrolytes * Eliquis resumed post op * Continue Dilantin * Pain control, Narcan for AMS * PT, OT eval
[2023-01-04 16:01] LABS: Basophils % (A) 0 %; Eosinophils % (A) 0 %; HCT 29.1 % (39.0-53.0); HGB 9.8 gm/dL (13.0-17.5); Lymphocytes # (A) 1.8 k/uL (1.0-4.8); Lymphocytes % (A) 13 %; MCH 31.1 pg (25.0-35.0); MCHC 33.6 g/dL (31.0-37.0); MCV 92.6 fL (80.0-100.0); Mean Platelet Volume 8.4; Monocytes # (A) 0.7 k/uL (0-1.0); Monocytes % (A) 5 %; Neutrophils # (A) 11.4 k/uL (1.3-7.7); Neutrophils % (A) 81 %; Platelet Count 141 k/uL (150-450); RBC 3.15 m/uL (4.30-5.90); RDW 15.2 % (11.5-15.5); WBC 14.2 k/uL (3.8-10.6)
--- NOTE | 2023-01-04 16:17 | P.PN ---
Subjective Progress Note Date: 01/04/23 The patient is an 87-year-old male who presented after a fall and a fractured hip. Consultation was requested for preoperative evaluation. The patient has a known history of CAD, status post stenting of the LAD in 2011, history of cardiomyopathy, chronic persistent atrial fibrillation. He has been very limited in his physical activity. He is awake but confused, unable to answer questions. He was in atrial flutter ablation with rapid ventricle response and was initiated on IV Cardizem in addition to beta jono. His rate is under better control at this time. He was anticoagulated as an outpatient. I am unable to obtain any history from him at this time. 01/04/2023 The patient remains confused. He underwent intertrochanteric hip screw placement and close reduction of the left hip status post fall with femur fracture done yesterday by Dr. Pedroza. He is more confused today and quite agitated at the time of my examination. He has been somewhat combative towards nursing staff. Heart rate is elevated he is currently on IV Cardizem at 15 mg an hour however is quite agitated. Objective - Vital Signs Vital signs: Vital Signs Temp 97.9 F 01/04/23 12:00 Pulse 136 H 01/04/23 15:41 Resp 16 01/04/23 15:41 BP 134/67 01/04/23 15:41 Pulse Ox 94 L 01/04/23 15:41 FiO2 Intake & Output 01/03/23 01/04/23 01/04/23 18:59 06:59 18:59 Intake Total 235.584 976 Output Total 750 180 400 Balance -514.416 -180 576 Intake: IV 851 Intake, IV Titration 117.584 125 Amount Diltiazem 125 mg In 117.584 125 Sodium Chloride 0.9% 100 ml @ 5 MG/HR 5 mls/hr IV .Q24H [facility] Rx#:[id number] Oral 118 Output: Urine 750 180 150 Estimated Blood Loss 250 Other: Voiding Method External Catheter Indwelling Catheter Indwelling Catheter - Exam 87-year-old male, awake, confused, and agitated Head: Normocephalic. Eyes: Sclerae nonicteric. Neck: Good carotid upstroke, no bruit, no jugular venous distention. Lungs: Clear to auscultation. Heart: Irregular rate and rhythm, S1-S2, no S3, no rub. Systolic ejection murmur. Abdomen: Soft nontender, positive bowel sounds no organomegaly. Extremities: No edema, intact distal pulses. - Labs CBC & Chem 7: 01/04/23 15:08 01/04/23 06:07 Labs: Abnormal Lab Results - Last 24 Hours (Table) 01/04/23 01/04/23 01/04/23 Range/Units 06:07 06:07 15:08 WBC 13.8 H 14.2 H (3.8-10.6) k/uL RBC 3.12 L 3.15 L (4.30-5.90) m/uL Hgb 10.0 L D 9.8 L (13.0-17.5) gm/dL Hct 29.9 L 29.1 L (39.0-53.0) % Plt Count 143 L 141 L (150-450) k/uL Neutrophils # 11.4 H (1.3-7.7) k/uL BUN 23 H (9-20) mg/dL Glucose 154 H (74-99) mg/dL Calcium 8.0 L (8.4-10.2) mg/dL Assessment and Plan Assessment: 1. Status post mechanical fall and fractured hip, s/p intertrochanteric hip screw placement and closed reduction 2. Chronic persistent atrial fibrillation, anticoagulated 3. History of CAD 4. History of ischemic cardiomyopathy 5. History of dementia with evidence of acute delirium. Plan: From fleecer perspective continue beta jono and IV Cardizem. antico agulation has been resumed. Continue to monitor on telemetry. We will continue to follow the patient provide further recommendations accordingly. ORDER PULLER note has been reviewed, I agree with a documented findings and plan of care. Patient was seen and examined.
[2023-01-04 17:08] LABS: Glucose,Whole Blood 140 mg/dL (70-110)
[2023-01-04] MEDS: NYSTATIN 100,000 UNIT/GM POWD 15 GM TOPICAL SCH (21:06)
[2023-01-04] MEDS: ATORVASTATIN 40 MG TAB PO SCH (21:09)
[2023-01-04] MEDS: SENNOSIDES-DOCUSATE SODIUM 1 EACH TAB PO SCH (21:09)
[2023-01-05] MEDS ORDERED: HALOPERIDOL LACTATE 5 MG/ML 1 ML VIAL IM STA ×2 (00:30→02:11)
[2023-01-05] MEDS: SODIUM CHLORIDE 0.9% 1,000 ML IV SCH ×4 (01:10→18:20)
[2023-01-05] MEDS: DILTIAZEM 125 MG in SODIUM CHLORIDE 0.9% 100 ML IV SCH ×3 (02:33→20:56)
[2023-01-05] MEDS: HYDROmorphone 1 MG/ML 1 ML SYRINGE IVP PRN ×5 (04:53→21:02)
[2023-01-05] MEDS: NYSTATIN 100,000 UNIT/GM POWD 15 GM TOPICAL SCH ×2 (07:53→21:20)
[2023-01-05] MEDS: FAMOTIDINE 20 MG TAB PO SCH ×2 (07:53→21:19)
[2023-01-05] MEDS: METOPROLOL TARTRATE 50 MG TAB PO SCH ×2 (07:53→21:19)
[2023-01-05] MEDS: SENNOSIDES-DOCUSATE SODIUM 1 EACH TAB PO SCH ×2 (07:53→21:19)
[2023-01-05] MEDS: PHENYTOIN SODIUM EXTENDED 100 MG CAP PO SCH ×3 (07:53→21:19)
[2023-01-05] MEDS: APIXABAN 5 MG TAB PO SCH ×2 (07:53→21:19)
--- NOTE | 2023-01-05 08:30 | P.PN ---
Progress Note - Text Progress Note Date: 01/05/23 Orthopedics: History of present illness: Patient is an 87-year-old male who is seen and examined at bedside for follow-up evaluation of his left hip. He is status post left intramedullary nail fixation for left intertrochanteric hip fracture performed yesterday, 01/04/2023. Patient continues to have confusion. Patient was quite agitated this morning. He is trying to pull all of his leads and IV out. It was reported he was combative and trying to hit staff. He was given some medication for pain control. He is currently resting comfortably. He does have soft pad mittens on his hands bilaterally. He does have hospital staff sitting at the bedside. His dressing over his left hip is clean, dry, and intact. Pneumatic boots are intact. The patient is currently sleeping. Patient continues to be seen and examined by medicine and cardiology. At presentation to the emergency department, patient did have atrial fibrillation with RVR. Orders show patient is scheduled for echocardiogram today. Nursing states patient does live alone and his daughter lives next door. It was discussed patient will most likely need discharge to a rehabilitation facility at the time of discharge. Physical Exam Intramedullary Rodding for Intertrochanteric Fracture: Status post surgical day number 1 Patient is examined lying in bed Patient is sleeping Vital signs stable Adequate chest excursion with deep inspiration and expiration Left calf is soft Pneumatic boots in place bilaterally Dressings over the left hip is clean, dry, and intact; no erythema, purulence, or signs of infection No pain with palpation over the surgical sites Assessment: Status post left intramedullary nail fixation for left intertrochanteric hip fracture Status post fall Atrial fibrillation with RVR Coronary artery disease History of ischemic cardiomyopathy History of dementia Plan: 1. Patient to remain toe-touch weightbearing for balance only on the left lower extremity; patient may work with physical therapy to increase mobility and ambulation 2. Keep dressing over the left hip clean, dry, and intact 3. Discontinue Mann catheter when patient is able to increase mobility and ambulation 4. Continue pain control with oral [place] and IV Dilaudid as needed for pain control 5. Anticoagulation will be managed by cardiology and medicine; Eliquis has been resumed postoperatively 6. Medicine to continue following the patient for their other medical diagnosis 7. Patient will continue be seen in exam by medicine for his significant cardiac diagnoses; currently scheduled for echocardiogram today. 8. We'll continue to follow the patient closely; depending on the patient's progress. We did discuss patient will most likely need discharge to a rehabilitation facility. We will plan for evaluation with case management for discharge planning. Patient will need clearance by medicine and cardiology prior to discharge. 9. Patient can follow-up with Kavon Caldera PA-C or Dr. Percy Pedroza at [facility] in 2-3 weeks following discharge
[2023-01-05 09:59] LABS: African American GFR (CKD) >90 (>60 ml/min/1.73 sqM); Anion Gap 5 mmol/L; Blood Urea Nitrogen 30 mg/dL (9-20); Calcium 7.2 mg/dL (8.4-10.2); Carbon Dioxide 26 mmol/L (22-30); Chloride 108 mmol/L (98-107); Glucose 135 mg/dL (74-99); Magnesium 1.9 mg/dL (1.6-2.3); Non-African American GFR(CKD) 79 (>60 ml/min/1.73 sqM); Potassium 3.3 mmol/L (3.5-5.1); Sodium 139 mmol/L (137-145)
--- NOTE | 2023-01-05 10:38 | XR ---
Fluoroscopy History: HARDWARE PLACEMENT 1:14 FLUORO, 9.2106 Gycm2
--- NOTE | 2023-01-05 11:09 | P.PN ---
Subjective History of Present Illness: The patient is an 87-year-old male who presented after a fall and a fractured hip. Consultation was requested for preoperative evaluation. The patient has a known history of CAD, status post stenting of the LAD in 2011, history of cardiomyopathy, chronic persistent atrial fibrillation. He has been very limited in his physical activity. He is awake but confused, unable to answer questions. He was in atrial flutter ablation with rapid ventricle response and was initiated on IV Cardizem in addition to beta jono. His rate is under better control at this time. He was anticoagulated as an outpatient. I am un able to obtain any history from him at this time. Medications: Lipitor 80 mg daily, metoprolol 50 mg twice a day, lisinopril 10 mg daily, isosorbide mononitrate 30 mg daily,Eliquis 5 mg twice a day 01/05 Patient seen and examined. Patient remains combative and with a one-to-one sitter and restraints. He has not been able to receive any oral medications and spitting medications out. Has been on a Cardizem drip at 15 with heart rates controlled. Physical Examination: Vitals reviewed Head: Normocephalic. Eyes: Sclerae nonicteric. Neck: Good carotid upstroke, no bruit, no jugular venous distention. Lungs: Clear to auscultation. Heart: Irregular rate and rhythm, S1-S2, no S3, no rub. Systolic ejection murmur. Abdomen: Soft nontender, positive bowel sounds no organomegaly. Extremities: No edema, intact distal pulses. Impression: 1. Status post mechanical fall and fractured hip, s/p intertrochanteric hip screw placement and closed reduction 2. Chronic persistent atrial fibrillation, anticoagulated 3. History of CAD 4. History of ischemic cardiomyopathy 5. History of dementia 6. Confusion, combative, NPO Plan: Continue IV Cardizem for now and hopefully placed back on oral jono once able to tolerate oral medications. Eliquis was restarted. Await 2-D echo however unsure if patient will be cooperative with exam. Continue with current supportive care. Prognosis guarded. Objective - Vital Signs Vital signs: Vital Signs Temp 98.5 F 01/05/23 08:00 Pulse 120 H 01/05/23 08:00 Resp 18 01/05/23 08:00 BP 129/78 01/05/23 08:00 Pulse Ox 94 L 01/05/23 08:00 FiO2 Intake & Output 01/04/23 01/05/23 01/05/23 18:59 06:59 18:59 Intake Total 976 605 Output Total 400 250 Balance 576 355 Intake: IV 851 Intake, IV Titration 125 125 Amount Diltiazem 125 mg In 125 125 Sodium Chloride 0.9% 100 ml @ 5 MG/HR 5 mls/hr IV .Q24H [facility] Rx#:[id number] Oral 480 Output: Urine 150 250 Estimated Blood Loss 250 Other: Voiding Method Indwelling Catheter Indwelling Catheter Indwelling Catheter - Labs CBC & Chem 7: 01/04/23 15:08 01/05/23 09:06 Labs: Abnormal Lab Results - Last 24 Hours (Table) 01/04/23 01/04/23 01/05/23 Range/Units 15:08 17:05 09:06 WBC 14.2 H (3.8-10.6) k/uL RBC 3.15 L (4.30-5.90) m/uL Hgb 9.8 L (13.0-17.5) gm/dL Hct 29.1 L (39.0-53.0) % Plt Count 141 L (150-450) k/uL Neutrophils # 11.4 H (1.3-7.7) k/uL Potassium 3.3 L (3.5-5.1) mmol/L Chloride 108 H (98-107) mmol/L BUN 30 H (9-20) mg/dL Glucose 135 H (74-99) mg/dL POC Glucose (mg/dL) 140 H (70-110) mg/dL Calcium 7.2 L (8.4-10.2) mg/dL
[2023-01-05] MEDS ORDERED: Potassium Replacement Protocol 1 EACH MISC MISCELLANE PRN (15:41)
--- NOTE | 2023-01-05 15:44 | P.PN ---
Subjective Progress Note Date: 01/05/23 Status post left intramedullary nail fixation for left intertrochanteric hip fracture, status post fall, currently with acute delirium. Confused, requiring safety deposit supervisor. Maintained on Cardizem drip, heart rates better controlled. Echo ordered. Maintaining O2 sats in the 90s on 4 L nasal cannula. Objective - Vital Signs Vital signs: Vital Signs Temp 98.7 F 01/05/23 15:00 Pulse 111 H 01/05/23 15:00 Resp 18 01/05/23 15:00 BP 119/61 01/05/23 15:00 Pulse Ox 94 L 01/05/23 15:00 FiO2 Intake & Output 01/04/23 01/05/23 01/05/23 18:59 06:59 18:59 Intake Total 976 605 125 Output Total 400 250 Balance 576 355 125 Intake: IV 851 Intake, IV Titration 125 125 125 Amount Diltiazem 125 mg In 125 125 125 Sodium Chloride 0.9% 100 ml @ 5 MG/HR 5 mls/hr IV .Q24H [facility] Rx#:[id number] Oral 480 Output: Urine 150 250 Estimated Blood Loss 250 Other: Voiding Method Indwelling Catheter Indwelling Catheter Indwelling Catheter - Exam - Exam General : Disoriented, agitated Head: Normocephalic. Eyes: Sclerae nonicteric. Neck: Supple, no jugular venous distention. Lungs: Clear to auscultation. Heart: Irregular rate and rhythm,Tachycardia S1-S2, no S3, no rub. Systolic murmur. Abdomen: Soft nontender, positive bowel sounds no organomegaly. Extremities:Left Hip frcature repair, minimal edema, no calf pain, positive DP pulse - Labs CBC & Chem 7: 01/04/23 15:08 01/05/23 09:06 Labs: Abnormal Lab Results - Last 24 Hours (Table) 01/04/23 01/04/23 01/05/23 Range/Units 15:08 17:05 09:06 WBC 14.2 H (3.8-10.6) k/uL RBC 3.15 L (4.30-5.90) m/uL Hgb 9.8 L (13.0-17.5) gm/dL Hct 29.1 L (39.0-53.0) % Plt Count 141 L (150-450) k/uL Neutrophils # 11.4 H (1.3-7.7) k/uL Potassium 3.3 L (3.5-5.1) mmol/L Chloride 108 H (98-107) mmol/L BUN 30 H (9-20) mg/dL Glucose 135 H (74-99) mg/dL POC Glucose (mg/dL) 140 H (70-110) mg/dL Calcium 7.2 L (8.4-10.2) mg/dL Assessment and Plan Assessment: Status post mechanical fall and fractured Left hip Acute metabolic encephalopathy secondary to the above, acute delirium. Chronic persistent atrial fibrillation w RVR History of CAD History of ischemic cardiomyopathy Seziure Disorder Plan: Continue on current medication regime ,monitoring and symptomatic treatment. Labs pending.Antiarrhythmics as per cardiology-currently on Cardizem drip. Anticoagulated on Eliquis. Pain management. Maintain safety deposit supervisor .Planning for subacute rehab at discharge. The impression and plan of care has been dictated as directed. : I performed a history and examination of this patient, discussed the same with the dictator. I agree with the dictator's note ,documented as a scribe. Any additional findings or plans will be noted.
[2023-01-05] MEDS: ATORVASTATIN 40 MG TAB PO SCH (21:19)
[2023-01-05] MEDS ORDERED: ACETAMINOPHEN IV (For NPO) 1,000 MG in EMPTY BAG 1 BAG IVPB PRN (23:43)
[2023-01-06] MEDS ORDERED: ACETAMINOPHEN IV (For NPO) 1,000 MG in EMPTY BAG 1 BAG IVPB SCH
[2023-01-06] MEDS: HYDROmorphone 1 MG/ML 1 ML SYRINGE IVP PRN ×2 (01:31→05:01)
[2023-01-06] MEDS: SODIUM CHLORIDE 0.9% 1,000 ML IV SCH ×3 (03:00→22:56)
[2023-01-06] MEDS: DILTIAZEM 125 MG in SODIUM CHLORIDE 0.9% 100 ML IV SCH ×2 (05:08→14:10)
--- NOTE | 2023-01-06 08:26 | P.PN ---
Progress Note - Text Progress Note Date: 01/06/23 Orthopedics: History of present illness: Patient is an 87-year-old male who is seen and examined at bedside for follow-up evaluation of his left hip. He is status post left intramedullary nail fixation for left intertrochanteric hip fracture performed yesterday, 01/04/2023. Patient continues to have confusion. He is currently resting comfortably. He does have soft pad mittens on his hands bilaterally. . His dressing over his left hip is clean, dry, and intact. Pneumatic boots are intact. The patient is arousable and says he does have some pain towards his left hip. He does have difficulty following commands. Patient continues to be seen and examined by medicine and cardiology. At presentation to the emergency department, patient did have atrial fibrillation with RVR. Orders show patient was scheduled for echocardiogram yesterday but this was placed on hold until he felt the patient could tolerate the echocardiogram. Nursing states patient does live alone and his daughter lives next door. It was discussed patient will most likely need discharge to a rehabilitation facility at the time of discharge. Physical Exam Intramedullary [place] for Intertrochanteric Fracture: Status post surgical day number 2 Patient is examined lying in bed Patient is sleeping Vital signs stable Adequate chest excursion with deep inspiration and expiration Left calf is soft Pneumatic boots in place bilaterally Dressings over the left hip is clean, dry, and intact; no erythema, purulence, or signs of infection No pain with palpation over the surgical sites Assessment: Status post left intramedullary nail fixation for left intertrochanteric hip fracture Status post fall Atrial fibrillation with RVR Coronary artery disease History of ischemic cardiomyopathy History of dementia Plan: We will keep with her plan as set forth yesterday. 1. Patient to remain toe-touch weightbearing for balance only on the left lower extremity; patient may work with physical therapy to increase mobility and ambulation 2. Keep dressing over the left hip clean, dry, and intact 3. Discontinue Mann catheter when patient is able to increase mobility and ambulation 4. Continue pain control with oral [place] and IV Dilaudid as needed for pain control 5. Anticoagulation will be managed by cardiology and medicine; Eliquis has been resumed postoperatively 6. Medicine to continue following the patient for their other medical diagnosis 7. Patient will continue be seen in exam by medicine for his significant cardiac diagnoses; currently scheduled for echocardiogram today. 8. We'll continue to follow the patient closely. We did discuss patient will most likely need discharge to a rehabilitation facility. We will plan for evaluation with case management for discharge planning. Patient will need clearance by medicine and cardiology prior to discharge. 9. He is clear for discharge from an orthopedic standpoint. Patient can follow-up with Kavon Caldera PA-C or Dr. Percy Pedroza at [facility] in 2-3 weeks following discharge
[2023-01-06] MEDS: APIXABAN 5 MG TAB PO SCH ×2 (08:48→20:17)
[2023-01-06] MEDS: NYSTATIN 100,000 UNIT/GM POWD 15 GM TOPICAL SCH ×2 (08:49→20:22)
[2023-01-06] MEDS: PHENYTOIN SODIUM EXTENDED 100 MG CAP PO SCH ×3 (08:49→22:56)
[2023-01-06] MEDS: SENNOSIDES-DOCUSATE SODIUM 1 EACH TAB PO SCH ×2 (08:49→20:22)
[2023-01-06] MEDS: METOPROLOL TARTRATE 50 MG TAB PO SCH (08:49)
[2023-01-06] MEDS: FAMOTIDINE 20 MG TAB PO SCH ×2 (08:49→20:22)
--- NOTE | 2023-01-06 09:17 | CA ---
Transthoracic Echo Report Name: Javier Shah Age: 87 Gender: M : 1935 Exam Date: 01/05/2023 13:08 Exam Location: [place] [facility] Ht (in): 72 Wt (lb): 232 Ordering Physician: Gary Jimenes MD ([id number]) Attending/Referring Phys: Spinneret Person Alan Mann Procedure CPT: Indications: afib Cardiac Hx: Technical Quality: Fair Contrast 1: Total Dose (mL): Contrast 2: Total Dose (mL): MEASUREMENTS (Male / Female) Normal Values 2D ECHO LV Diastolic Diameter PLAX 5.1 cm 4.2 - 5.9 / 3.9 - 5.3 cm LV Systolic Diameter PLAX 4.6 cm IVS Diastolic Thickness 1.5 cm 0.6 - 1.0 / 0.6 - 0.9 cm LVPW Diastolic Thickness 1.4 cm 0.6 - 1.0 / 0.6 - 0.9 cm LV Relative Wall Thickness 0.5 RV Internal Dim ED PLAX 2.0 cm LVOT Diameter 2.4 cm Aortic Root Diameter 3.8 cm LA Systolic Diameter LX 3.5 cm 3.0 - 4.0 / 2.7 - 3.8 cm LV Diastolic Volume MOD BP 75.5 cm??? 67 - 155 / 56 - 104 cm??? LV Systolic Volume MOD BP 39.0 cm??? 22 - 58 / 19 - 49 cm??? LV Ejection Fraction MOD BP 48.3 % >= 55 % LV Diastolic Volume MOD 4C 88.2 cm??? LV Systolic Volume MOD 4C 59.6 cm??? LV Ejection Fraction MOD 4C 32.4 % LV Diastolic Length 4C 6.8 cm LV Systolic Length 4C 6.7 cm LV Diastolic Volume MOD 2C 61.5 cm??? LV Systolic Volume MOD 2C 24.8 cm??? LV Ejection Fraction MOD 2C 59.7 % LV Diastolic Length 2C 7.1 cm LV Systolic Length 2C 7.0 cm LA Volume 83.4 cm??? 18 - 58 / 22 - 52 cm??? DOPPLER AV Peak Velocity 140.5 cm/s AV Peak Gradient 7.9 mmHg LVOT Peak Velocity 92.1 cm/s LVOT Peak Gradient 3.4 mmHg AV Area Cont Eq pk 3.0 cm??? MV Peak Velocity 112.8 cm/s MV Peak Gradient 5.1 mmHg MV Mean Velocity 56.2 cm/s MV Mean Gradient 1.6 mmHg MV Velocity Time Integral 22.6 cm MR Peak Velocity 257.6 cm/s MR Peak Gradient 26.5 mmHg Mitral E Point Velocity 87.4 cm/s Mitral A Point Velocity 75.9 cm/s Mitral E to A Ratio 1.2 MV Deceleration Time 114.3 ms TR Peak Velocity 271.5 cm/s TR Peak Gradient 29.5 mmHg Right Ventricular Systolic Press 34.5 mmHg FINDINGS Left Ventricle Left ventricular ejection fraction is estimated at 40-45 %. Right Ventricle Normal right ventricular size. RVSP= 35mmhg Right Atrium Normal right atrial size. Left Atrium Normal left atrial size. Mitral Valve Structurally normal mitral valve. Aortic Valve Aortic valve not well visualized. Thickened aortic valve without stenosis. Tricuspid Valve Tricuspid valve not well visualized. Pulmonic Valve Pulmonic valve not well visualized. No pulmonic regurgitation. Pericardium Not well visualized. Aorta Normal size aortic root and proximal ascending aorta. CONCLUSIONS Mildly impaired LV function with EF between 40-45% Previewed by: Dr. Narinder Frye MD (Electronically Signed) Final Date: 06 January 2023 09:16
[2023-01-06 12:48] LABS: African American GFR (CKD) >90 (>60 ml/min/1.73 sqM); Anion Gap 10 mmol/L; Blood Urea Nitrogen 33 mg/dL (9-20); Calcium 7.7 mg/dL (8.4-10.2); Carbon Dioxide 22 mmol/L (22-30); Chloride 109 mmol/L (98-107); Glucose 165 mg/dL (74-99); Non-African American GFR(CKD) >90 (>60 ml/min/1.73 sqM); Potassium 3.3 mmol/L (3.5-5.1); Sodium 141 mmol/L (137-145)
[2023-01-06 12:49] LABS: Basophils % (A) 0 %; Eosinophils % (A) 0 %; HCT 23.4 % (39.0-53.0); Lymphocytes # (A) 1.2 k/uL (1.0-4.8); Lymphocytes % (A) 11 %; MCH 32.3 pg (25.0-35.0); MCHC 33.8 g/dL (31.0-37.0); MCV 95.8 fL (80.0-100.0); Mean Platelet Volume 8.3; Monocytes # (A) 0.6 k/uL (0-1.0); Monocytes % (A) 5 %; Neutrophils # (A) 8.7 k/uL (1.3-7.7); Neutrophils % (A) 82 %; Platelet Count 146 k/uL (150-450); RBC 2.44 m/uL (4.30-5.90); WBC 10.7 k/uL (3.8-10.6)
[2023-01-06 12:50] LABS: HGB 7.9 gm/dL (13.0-17.5)
[2023-01-06 15:05] LABS: Basophils % (A) 0 %; Eosinophils % (A) 0 %; HCT 23.5 % (39.0-53.0); HGB 7.9 gm/dL (13.0-17.5); Lymphocytes % (A) 11 %; MCH 31.6 pg (25.0-35.0); MCHC 33.5 g/dL (31.0-37.0); MCV 94.4 fL (80.0-100.0); Mean Platelet Volume 7.9; Monocytes # (A) 0.5 k/uL (0-1.0); Monocytes % (A) 5 %; Neutrophils # (A) 7.4 k/uL (1.3-7.7); Neutrophils % (A) 82 %; Platelet Count 145 k/uL (150-450); RBC 2.49 m/uL (4.30-5.90); RDW 14.8 % (11.5-15.5)
--- NOTE | 2023-01-06 16:14 | P.PN ---
Subjective Progress Note Date: 01/06/23 Status post left intramedullary nail fixation for left intertrochanteric hip fracture, status post fall, currently with acute delirium. Confused, requiring industrial safety and health manager. Maintained on Cardizem drip, heart rates better controlled. Echo ordered. Maintaining O2 sats in the 90s on 4 L nasal cannula. 01/06/2023 Answering some simple questions, otherwise delirium persists, wearing mittens. echo reporting EF 40-45%. Continues on Cardizem drip. T-max 100.4, currently afebrile, WBC within normal limits. Blood cultures pending. Maintaining O2 sats in the 90s on room air.Hemoglobin decreased to 7.9, repeat level pending. Tachycardic. Receiving potassium supplements per protocol for potassium 3.3. For potassium of 3.3 renal function stable. Objective - Vital Signs Vital signs: Vital Signs Temp 98.7 F 01/06/23 14:46 Pulse 102 H 01/06/23 14:46 Resp 18 01/06/23 14:46 BP 152/72 01/06/23 14:46 Pulse Ox 95 01/06/23 14:46 FiO2 Intake & Output 01/05/23 01/06/23 01/06/23 18:59 06:59 18:59 Intake Total 125 258 125 Output Total 550 250 Balance 125 -292 -125 Intake: IV 10 Invasive Line 2 10 Intake, IV Titration 125 248 125 Amount Diltiazem 125 mg In 125 248 125 Sodium Chloride 0.9% 100 ml @ 5 MG/HR 5 mls/hr IV .Q24H [facility] Rx#:[id number] Oral 0 Output: Urine 550 250 Other: Voiding Method Indwelling Catheter Indwelling Catheter Indwelling Catheter - Exam - Exam General : Disoriented, wearing mittens, intermittently answering simple questio ns Head: Normocephalic. Eyes: Sclerae nonicteric. Neck: Supple, no jugular venous distention. Lungs: Clear to auscultation. Heart: Irregular rate and rhythm,Tachycardia S1-S2, no S3, no rub. Systolic murmur. Abdomen: Soft nontender, positive bowel sounds no organomegaly. Extremities:Left Hip frcature repair, minimal edema, no calf pain, positive DP pulse - Labs CBC & Chem 7: 01/06/23 14:30 06/06/23 11:42 Labs: Abnormal Lab Results - Last 24 Hours (Table) 01/06/23 01/06/23 01/06/23 Range/Units 11:42 11:42 14:30 WBC 10.7 H (3.8-10.6) k/uL RBC 2.44 L 2.49 L (4.30-5.90) m/uL Hgb 7.9 L D 7.9 L (13.0-17.5) gm/dL Hct 23.4 L 23.5 L (39.0-53.0) % Plt Count 146 L 145 L (150-450) k/uL Neutrophils # 8.7 H (1.3-7.7) k/uL Potassium 3.3 L (3.5-5.1) mmol/L Chloride 109 H (98-107) mmol/L BUN 33 H (9-20) mg/dL Creatinine 0.58 L (0.66-1.25) mg/dL Glucose 165 H (74-99) mg/dL Calcium 7.7 L (8.4-10.2) mg/dL Assessment and Plan Assessment: Status post mechanical fall and fractured Left hip Acute metabolic encephalopathy, acute delirium, multifactorial, secondary to the above, anesthesia and pain meds. Chronic persistent atrial fibrillation w RVR History of CAD History of ischemic cardiomyopathy Seziure Disorder Plan: Continue on current medication regime ,monitoring and symptomatic treatment. Pain management-Pain medication adjusted.Antiarrhythmics as per cardiology-currently on Cardizem drip. Anticoagulated on Eliquis. Maintain industrial safety and health manager.Planning for subacute rehab at discharge. The impression and plan of care has been dictated as directed. : I performed a history and examination of this patient, discussed the same with the dictator. I agree with the dictator's note ,documented as a scribe. Any additional findings or plans will be noted.
[2023-01-06] MEDS: POTASSIUM BICARBONATE/CIT AC 20 MEQ TABLET.EFF NG-TUBE SCH ×2 (17:51→18:42)
--- NOTE | 2023-01-06 18:29 | P.PN ---
Subjective History of Present Illness: The patient is an 87-year-old male who presented after a fall and a fractured hip. Consultation was requested for preoperative evaluation. The patient has a known history of CAD, status post stenting of the LAD in 2011, history of cardiomyopathy, chronic persistent atrial fibrillation. He has been very limited in his physical activity. He is awake but confused, unable to answer questions. He was in atrial flutter ablation with rapid ventricle response and was initiated on IV Cardizem in addition to beta jono. His rate is under better control at this time. He was anticoagulated as an outpatient. I am un able to obtain any history from him at this time. Medications: Lipitor 80 mg daily, metoprolol 50 mg twice a day, lisinopril 10 mg daily, isosorbide mononitrate 30 mg daily,Eliquis 5 mg twice a day 01/05 Patient seen and examined. Patient remains combative and with a one-to-one sitter and restraints. He has not been able to receive any oral medications and spitting medications out. Has been on a Cardizem drip at 15 with heart rates controlled. 01/06 Patient seen and examined. Patient not as combative and somewhat more restful however still needing restraints. He was able to tolerate some oral medications in applesauce. Remains on Cardizem drip at 15. Heart rate still in the 90s to 100 range. Physical Examination: Vitals reviewed Head: Normocephalic. Eyes: Sclerae nonicteric. Neck: Good carotid upstroke, no bruit, no jugular venous distention. Lungs: Clear to auscultation. Heart: Irregular rate and rhythm, S1-S2, no S3, no rub. Systolic ejection murmur. Abdomen: Soft nontender, positive bowel sounds no organomegaly. Extremities: No edema, intact distal pulses. Impression: 1. Status post mechanical fall and fractured hip, s/p intertrochanteric hip screw placement and closed reduction 2. Chronic persistent atrial fibrillation, anticoagulated 3. History of CAD 4. History of ischemic cardiomyopathy 5. History of dementia 6. Confusion, combative, NPO Plan: Add metoprolol and hopefully wean Cardizem drip as able. Eliquis was restarted. Echo shows EF 40-45% and optimize heart failure regimen as able. Continue with current supportive care. Prognosis guarded. Objective Objective - Vital Signs Vital signs: Vital Signs Temp 98.7 F 01/06/23 14:46 Pulse 102 H 01/06/23 14:46 Resp 18 01/06/23 14:46 BP 152/72 01/06/23 14:46 Pulse Ox 95 01/06/23 14:46 FiO2 Intake & Output 01/05/23 01/06/23 01/06/23 18:59 06:59 18:59 Intake Total 125 258 125 Output Total 550 250 Balance 125 -292 -125 Intake: IV 10 Invasive Line 2 10 Intake, IV Titration 125 248 125 Amount Diltiazem 125 mg In 125 248 125 Sodium Chloride 0.9% 100 ml @ 5 MG/HR 5 mls/hr IV .Q24H [facility] Rx#:[id number] Oral 0 Output: Urine 550 250 Other: Voiding Method Indwelling Catheter Indwelling Catheter Indwelling Catheter - Labs CBC & Chem 7: 01/06/23 14:30 01/06/23 11:42 Labs: Abnormal Lab Results - Last 24 Hours (Table) 01/06/23 01/06/23 01/06/23 Range/Units 11:42 11:42 14:30 WBC 10.7 H (3.8-10.6) k/uL RBC 2.44 L 2.49 L (4.30-5.90) m/uL Hgb 7.9 L D 7.9 L (13.0-17.5) gm/dL Hct 23.4 L 23.5 L (39.0-53.0) % Plt Count 146 L 145 L (150-450) k/uL Neutrophils # 8.7 H (1.3-7.7) k/uL Potassium 3.3 L (3.5-5.1) mmol/L Chloride 109 H (98-107) mmol/L BUN 33 H (9-20) mg/dL Creatinine 0.58 L (0.66-1.25) mg/dL Glucose 165 H (74-99) mg/dL Calcium 7.7 L (8.4-10.2) mg/dL
[2023-01-06] MEDS: LORazepam 2 MG/ML INJ IV PRN (19:59)
[2023-01-06] MEDS: ATORVASTATIN 40 MG TAB PO SCH (20:17)
[2023-01-06] MEDS: METOPROLOL SUCCINATE (ER) 50 MG TAB.ER.24H PO SCH (20:17)
[2023-01-07] MEDS: LORazepam 2 MG/ML INJ IV PRN (03:36)
[2023-01-07] MEDS: ACETAMINOPHEN IV (For NPO) 1,000 MG in EMPTY BAG 1 BAG IVPB SCH (09:11)
[2023-01-07] MEDS: NYSTATIN 100,000 UNIT/GM POWD 15 GM TOPICAL SCH ×2 (09:12→22:03)
--- NOTE | 2023-01-07 10:56 | XR ---
EXAMINATION TYPE: XR chest 1V DATE OF EXAM: 01/07/2023 CLINICAL HISTORY: Difficulty breathing and fever. TECHNIQUE: Single AP portable upright view of the chest is obtained. COMPARISON: Chest x-ray from 5 days earlier FINDINGS: Persistent cardiomegaly. Patchy left basilar opacity on current study. Right lung remain c lear. Osseous structures are intact. IMPRESSION: Cardiomegaly with patchy left basilar atelectasis and/or acute infiltrate.
--- NOTE | 2023-01-07 11:32 | P.PN ---
Subjective Progress Note Date: 01/07/23 History of Present Illness: The patient is an 87-year-old male who presented after a fall and a fractured hip. Consultation was requested for preoperative evaluation. The patient has a known history of CAD, status post stenting of the LAD in 2011, history of cardiomyopathy, chronic persistent atrial fibrillation. He has been very limited in his physical activity. He is awake but confused, unable to answer questions. He was in atrial flutter ablation with rapid ventricle response and was initiated on IV Cardizem in addition to beta jono. His rate is under better control at this time. He was anticoagulated as an outpatient. I am unable to obtain any history from him at this time. Medications: Lipitor 80 mg daily, metoprolol 50 mg twice a day, lisinopril 10 mg daily, isosorbide mononitrate 30 mg daily,Eliquis 5 mg twice a day 01/05 Patient seen and examined. Patient remains combative and with a one-to-one sitter and restraints. He has not been able to receive any oral medications and spitting medications out. Has been on a Cardizem drip at 15 with heart rates controlled. 01/06 Patient seen and examined. Patient not as combative and somewhat more restful however still needing restraints. He was able to tolerate some oral medications in applesauce. Remains on Cardizem drip at 15. Heart rate still in the 90s to 100 range. 01/07 Patient is seen today in follow-up. He continues to have confusion. He is on a Cardizem drip and unable to take oral medications at this time. Heart rate is in the low 100s to 120. We will not plan to make any medication changes at this time and patient to be monitored overnight and reassess tomorrow. Physical Examination: Vitals reviewed Head: Normocephalic. Eyes: Sclerae nonicteric. Neck: Good carotid upstroke, no bruit, no jugular venous distention. Lungs: Clear to auscultation. Heart: Irregular rate and rhythm, S1-S2, no S3, no rub. Systolic ejection murmur. Abdomen: Soft nontender, positive bowel sounds no organomegaly. Extremities: No edema, intact distal pulses. Impression: 1. Status post mechanical fall and fractured hip, s/p intertrochanteric hip screw placement and closed reduction 2. Chronic persistent atrial fibrillation, anticoagulated 3. History of CAD 4. History of ischemic cardiomyopathy 5. History of dementia 6. Confusion, combative, NPO Plan: Continue current medications including IV Cardizem drip while patient. Eliquis was restarted. The patient is unable to take oral medications today. Echo shows EF 40-45% and optimize heart failure regimen as able. Continue with current supportive care. Prognosis guarded. Nurse practitioner note has been reviewed, I agree with the documented findings and plan of care. Patient was seen and examined. Objective - Vital Signs Vital signs: Vital Signs Temp 100.0 F H 01/07/23 03:22 Pulse 105 H 01/07/23 03:22 Resp 19 01/07/23 03:22 BP 150/82 01/07/23 03:22 Pulse Ox 99 01/07/23 03:22 FiO2 Intake & Output 01/06/23 01/07/23 01/07/23 18:59 06:59 18:59 Intake Total 125 720 Output Total 450 500 Balance -325 220 Intake: Intake, IV Titration 125 Amount Diltiazem 125 mg In 125 Sodium Chloride 0.9% 100 ml @ 5 MG/HR 5 mls/hr IV .Q24H [facility] Rx#:[id number] Oral 720 Output: Urine 450 500 Other: Voiding Method Indwelling Catheter Indwelling Catheter - Labs CBC & Chem 7: 01/06/23 14:30 01/06/23 11:42 Labs: Abnormal Lab Results - Last 24 Hours (Table) 01/06/23 01/06/23 01/06/23 Range/Units 11:42 11:42 14:30 WBC 10.7 H (3.8-10.6) k/uL RBC 2.44 L 2.49 L (4.30-5.90) m/uL Hgb 7.9 L D 7.9 L (13.0-17.5) gm/dL Hct 23.4 L 23.5 L (39.0-53.0) % Plt Count 146 L 145 L (150-450) k/uL Neutrophils # 8.7 H (1.3-7.7) k/uL Potassium 3.3 L (3.5-5.1) mmol/L Chloride 109 H (98-107) mmol/L BUN 33 H (9-20) mg/dL Creatinine 0.58 L (0.66-1.25) mg/dL Glucose 165 H (74-99) mg/dL Calcium 7.7 L (8.4-10.2) mg/dL
[2023-01-07 11:35] LABS: Basophils % (A) 0 %; Eosinophils # (A) 0.1 k/uL (0-0.7); Eosinophils % (A) 1 %; HCT 22.3 % (39.0-53.0); HGB 7.3 gm/dL (13.0-17.5); Lymphocytes # (A) 0.9 k/uL (1.0-4.8); Lymphocytes % (A) 12 %; MCH 30.6 pg (25.0-35.0); MCHC 32.9 g/dL (31.0-37.0); MCV 93.2 fL (80.0-100.0); Mean Platelet Volume 8.1; Monocytes # (A) 0.4 k/uL (0-1.0); Monocytes % (A) 5 %; Neutrophils # (A) 6.1 k/uL (1.3-7.7); Neutrophils % (A) 81 %; Platelet Count 158 k/uL (150-450); RBC 2.39 m/uL (4.30-5.90); RDW 15.4 % (11.5-15.5); WBC 7.5 k/uL (3.8-10.6)
[2023-01-07 12:14] LABS: African American GFR (CKD) >90 (>60 ml/min/1.73 sqM); Anion Gap 8 mmol/L; Blood Urea Nitrogen 24 mg/dL (9-20); Calcium 7.5 mg/dL (8.4-10.2); Carbon Dioxide 24 mmol/L (22-30); Chloride 110 mmol/L (98-107); Glucose 140 mg/dL (74-99); Non-African American GFR(CKD) >90 (>60 ml/min/1.73 sqM); Potassium 3.8 mmol/L (3.5-5.1); Sodium 142 mmol/L (137-145)
--- NOTE | 2023-01-07 12:24 | CT ---
EXAMINATION TYPE: CT brain wo con DATE OF EXAM: 01/07/2023 HISTORY: ams CT DLP: 1291.4 mGycm. Automated Exposure Control for Dose Reduction was Utilized. TECHNIQUE: CT scan of the head is performed without contrast. COMPARISON: CT brain January 11, 2022. FINDINGS: There is no acute intracranial hemorrhage or midline shift identified. There is moderate diffuse ventricular and sulcal prominence redemonstrated. There is mild low-attenuation in the periv entricular white matter redemonstrated. The globes are intact and the visualized sinuses are clear. IMPRESSION: No acute intracranial hemorrhage or midline shift. There is moderate diffuse cerebral a trophy and mild chronic small vessel ischemic change redemonstrated. No significant change from prio r CT.
--- NOTE | 2023-01-07 12:36 | P.PN ---
Progress Note - Text Progress Note Date: 01/07/23 Orthopedics: History of present illness: Patient is an 87-year-old male who is seen and examined at bedside for follow-up evaluation of his left hip. He is status post left intramedullary nail fixation for left intertrochanteric hip fracture performed yesterday, 01/04/2023. Patient continues to have confusion. He is currently resting comfortably. He currently has wrist restraints in place. His dressing over his proximal left hip is clean, dry, and intact. He has rubbed off the distal surgical dressings. Pneumatic boots are intact. The patient is arousable and says he does have some pain towards his left hip. He does have difficulty following commands. Patient continues to be seen and examined by medicine and cardiology. At presentation to the emergency department, patient did have atrial fibrillation with RVR. Patient did undergo echocardiogram. Eliquis has been restarted. He is also on a Cardizem drip. Nursing states patient does live alone and his daughter lives next door. It was discussed patient will most likely need discharge to a rehabilitation facility at the time of discharge. Physical Exam Intramedullary [place] for Intertrochanteric Fracture: Status post surgical day number 3 Patient is examined lying in bed Patient is sleeping Vital signs stable Adequate chest excursion with deep inspiration and expiration Left calf is soft Pneumatic boots in place bilaterally Dressings over the proximal left hip is clean, dry, and intact; no erythema, purulence, or signs of infection Dressings over the distal femur have been removed by the patient; nonstick Telfa and Tegaderm will be reapplied No pain with palpation over the surgical sites Assessment: Status post left intramedullary nail fixation for left intertrochanteric hip fracture Status post fall Atrial fibrillation with RVR Coronary artery disease History of ischemic cardiomyopathy History of dementia Plan: We will keep with her plan as set forth previously. 1. Patient to remain toe-touch weightbearing for balance only on the left lower extremity; patient may work with physical therapy to increase mobility and ambulation 2. Keep dressing over the left hip clean, dry, and intact 3. Discontinue Mann catheter when patient is able to increase mobility and ambulation 4. Continue pain control with oral [place] and IV Dilaudid as needed for pain control 5. Anticoagulation will be managed by cardiology and medicine; Eliquis has been resumed postoperatively 6. Medicine to continue following the patient for their other medical diagnosis 7. Patient will continue be seen in exam by medicine for his significant cardiac diagnoses; currently scheduled for echocardiogram today. 8. We'll continue to follow the patient closely. We did discuss patient will most likely need discharge to a rehabilitation facility. We will plan for evaluation with case management for discharge planning. Patient will need clearance by medicine and cardiology prior to discharge. 9. He is clear for discharge from an orthopedic standpoint. Patient can follow-up with Kavon Caldera PA-C or Dr. Percy Pedroza at [facility] in 2-3 weeks following discharge
--- NOTE | 2023-01-07 13:30 | P.PN ---
Subjective Progress Note Date: 01/07/23 Status post left intramedullary nail fixation for left intertrochanteric hip fracture, status post fall, currently with acute delirium. Confused, requiring safety patrol officer. Maintained on Cardizem drip, heart rates better controlled. Echo ordered. Maintaining O2 sats in the 90s on 4 L nasal cannula. 01/06/2023 Answering some simple questions, otherwise delirium persists, wearing mittens. echo reporting EF 40-45%. Continues on Cardizem drip. T-max 100.4, currently afebrile, WBC within normal limits. Blood cultures pending. Maintaining O2 sats in the 90s on room air.Hemoglobin decreased to 7.9, repeat level pending. Tachycardic. Receiving potassium supplements per protocol for potassium 3.3. For potassium of 3.3 renal function stable. 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 febrile, T-max 101.1,Ax., Maintaining O2 sats of 99% on 4 L nasal cannula which can be titrated down. Tachycardic, heart rates low 100s to 120s. Systolic blood pressure currently in the 150s. Maintained on Cardizem drip, anticoagulated on Eliquis. Labs pending. Objective - Vital Signs Vital signs: Vital Signs Temp 101.1 F H 01/07/23 08:35 Pulse 123 H 01/07/23 08:35 Resp 18 01/07/23 08:35 BP 153/86 01/07/23 08:35 Pulse Ox 99 01/07/23 08:35 FiO2 Intake & Output 01/06/23 01/07/23 01/07/23 18:59 06:59 18:59 Intake Total 125 720 Output Total 450 500 Balance -325 220 Intake: Intake, IV Titration 125 Amount Diltiazem 125 mg In 125 Sodium Chloride 0.9% 100 ml @ 5 MG/HR 5 mls/hr IV .Q24H [facility] Rx#:[id number] Oral 720 Output: Urine 450 500 Other: Voiding Method Indwelling Catheter Indwelling Catheter Indwelling Catheter - Exam - Exam General : Disoriented, sedated Head: Normocephalic. Eyes: Sclerae nonicteric. Neck: Supple, no jugular venous distention. Lungs: Clear to auscultation. Heart: Irregular rate and rhythm,Tachycardia, S1-S2, no S3, no rub. Systolic murmur. Abdomen: Soft nontender, positive bowel sounds no organomegaly. Extremities:Left Hip fracture repair, minimal edema, no calf pain, positive DP pulse - Labs CBC & Chem 7: 01/07/23 10:28 01/07/23 10:28 Labs: Abnormal Lab Results - Last 24 Hours (Table) 01/06/23 01/07/23 01/07/23 Range/Units 14:30 10:28 10:28 RBC 2.49 L 2.39 L (4.30-5.90) m/uL Hgb 7.9 L 7.3 L (13.0-17.5) gm/dL Hct 23.5 L 22.3 L (39.0-53.0) % Plt Count 145 L (150-450) k/uL Lymphocytes # 0.9 L (1.0-4.8) k/uL Chloride 110 H (98-107) mmol/L BUN 24 H (9-20) mg/dL Creatinine 0.48 L (0.66-1.25) mg/dL Glucose 140 H (74-99) mg/dL Calcium 7.5 L (8.4-10.2) mg/dL Microbiology - Last 24 Hours (Table) 01/05/23 21:22 Blood Culture - Preliminary Blood Assessment and Plan Assessment: Status post mechanical fall and fractured Left hip Acute metabolic encephalopathy, acute delirium, multifactorial, secondary to the above, anesthesia and pain meds. Chronic persistent atrial fibrillation w RVR History of CAD History of ischemic cardiomyopathy Seziure Disorder Plan: Continue on current medication regime ,monitoring and symptomatic treatment. Labs pending. Brain CT, chest x-ray, pancultured. Dilaudid, Ativan discontinued, Zyprexa ordered.Antiarrhythmics, anticoagulation as per cardiology. Maintain safety patrol officer. The impression and plan of care has been dictated as directed. : I performed a history and examination of this patient, discussed the same with the dictator. I agree with the dictator's note ,documented as a scribe. Any additional findings or plans will be noted.
[2023-01-07] MEDS: FAMOTIDINE 20 MG TAB PO SCH ×2 (15:20→20:05)
[2023-01-07] MEDS: APIXABAN 5 MG TAB PO SCH ×2 (15:20→19:59)
[2023-01-07] MEDS: PHENYTOIN SODIUM EXTENDED 100 MG CAP PO SCH ×3 (15:20→22:05)
[2023-01-07] MEDS: METOPROLOL SUCCINATE (ER) 50 MG TAB.ER.24H PO SCH ×2 (15:20→20:00)
[2023-01-07] MEDS: SENNOSIDES-DOCUSATE SODIUM 1 EACH TAB PO SCH ×2 (15:21→21:54)
[2023-01-07] MEDS: SODIUM CHLORIDE 0.9% 1,000 ML IV SCH (15:21)
[2023-01-07 16:05] LABS: HCT 22.9 % (39.0-53.0); HGB 7.8 gm/dL (13.0-17.5); MCH 32.2 pg (25.0-35.0); MCHC 34.1 g/dL (31.0-37.0); MCV 94.5 fL (80.0-100.0); Mean Platelet Volume 7.8; Platelet Count 156 k/uL (150-450); RBC 2.42 m/uL (4.30-5.90); RDW 15.1 % (11.5-15.5); WBC 8.5 k/uL (3.8-10.6)
[2023-01-07] MEDS: OLANZapine 2.5 MG TAB PO SCH (20:00)
[2023-01-07] MEDS: ATORVASTATIN 40 MG TAB PO SCH (20:00)
[2023-01-08] MEDS: ACETAMINOPHEN IV (For NPO) 1,000 MG in EMPTY BAG 1 BAG IVPB SCH ×5 (00:26→23:19)
[2023-01-08] MEDS: SODIUM CHLORIDE 0.9% 1,000 ML IV SCH ×2 (00:29→18:52)
--- NOTE | 2023-01-08 09:14 | P.PN ---
Progress Note - Text Progress Note Date: 01/08/23 Postoperative day #5 Patient is seen and examined today at bedside. He is still a bit confused and has a sitter next him at bedside. This seems to be essentially his baseline. He can do some communication and indicate when he has pain but it is very difficult to understand him and he tries to follow some small commands. He is still wearing some minutes for restraining as he is pulling out his lines and Mann. Physical Exam Afebrile with stable vital signs Abdomen is soft nontender. Chest has good excursion deep and space expiration The incision site is clean dry and intact. No erythema there is no purulence. there is some swelling around his thigh but his thigh feels soft. There is no erythema. Extremities have not had neurologic change from prior to surgery. there is sustained dorsiflexion plantarflexion and his ankle foot and toes spontaneously. He has good motion in his arms. Calves and thighs were soft nontender without evidence of DVT. Assessment/Plan Postoperative day #5 status post intramedullary hip screw for an intertrochanteric displaced femur fracture due to a fall Patient is progressing very slowlyas expected from the surgery. Is very difficult to communicate with the patient and he has some dementia which is making his therapy very difficult as well. Would like him to start to mobilize as he is able. He should try to minimize the weightbearing on his left lower extremity with touchdown weightbearing for balance. We will continue to increase the patient's mobilization with therapy. The patient is continue his management as per medicine and from a orthopedic standpoint it is okay for the patient to go to rehab or retirement when he stable from medicine service. We would plan to see him back in approximately 2 weeks' time for recheck evaluation and x-rays of his left hip We will continue pain control with oral or IV medications. We'll continue to follow patient closely.
[2023-01-08] MEDS: METOPROLOL SUCCINATE (ER) 50 MG TAB.ER.24H PO SCH ×2 (09:35→21:49)
[2023-01-08] MEDS: APIXABAN 5 MG TAB PO SCH ×2 (09:35→21:49)
[2023-01-08] MEDS: FAMOTIDINE 20 MG TAB PO SCH ×2 (09:35→21:49)
[2023-01-08] MEDS: PHENYTOIN SODIUM EXTENDED 100 MG CAP PO SCH ×3 (09:37→21:49)
[2023-01-08] MEDS: OLANZapine 2.5 MG TAB PO SCH (09:37)
[2023-01-08 09:58] LABS: Basophils % (A) 0 %; Eosinophils # (A) 0.1 k/uL (0-0.7); Eosinophils % (A) 1 %; HCT 24.4 % (39.0-53.0); HGB 8.2 gm/dL (13.0-17.5); Lymphocytes % (A) 11 %; MCH 31.7 pg (25.0-35.0); MCHC 33.6 g/dL (31.0-37.0); MCV 94.1 fL (80.0-100.0); Mean Platelet Volume 7.9; Monocytes # (A) 0.4 k/uL (0-1.0); Monocytes % (A) 5 %; Neutrophils # (A) 7.6 k/uL (1.3-7.7); Neutrophils % (A) 82 %; Platelet Count 180 k/uL (150-450); RBC 2.59 m/uL (4.30-5.90); WBC 9.2 k/uL (3.8-10.6)
[2023-01-08] MEDS: AZITHROMYCIN 500 MG in SODIUM CHLORIDE 0.9% 250 ML IVPB SCH (10:20)
[2023-01-08] MEDS: NYSTATIN 100,000 UNIT/GM POWD 15 GM TOPICAL SCH ×2 (10:23→22:59)
[2023-01-08] MEDS: SENNOSIDES-DOCUSATE SODIUM 1 EACH TAB PO SCH ×2 (12:00→22:13)
[2023-01-08] MEDS ORDERED: Magnesium Replacement Protocol 1 EACH MISC MISCELLANE PRN (14:11)
--- NOTE | 2023-01-08 14:18 | P.PN ---
Subjective Progress Note Date: 01/08/23 Status post left intramedullary nail fixation for left intertrochanteric hip fracture, status post fall, currently with acute delirium. Confused, requiring patient safety officer. Maintained on Cardizem drip, heart rates better controlled. Echo ordered. Maintaining O2 sats in the 90s on 4 L nasal cannula. 01/06/2023 Answering some simple questions, otherwise delirium persists, wearing mittens. echo reporting EF 40-45%. Continues on Cardizem drip. T-max 100.4, currently afebrile, WBC within normal limits. Blood cultures pending. Maintaining O2 sats in the 90s on room air.Hemoglobin decreased to 7.9, repeat level pending. Tachycardic. Receiving potassium supplements per protocol for potassium 3.3. For potassium of 3.3 renal function stable. 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 febrile, T-max 101.1,Ax., Maintaining O2 sats of 99% on 4 L nasal cannula which can be titrated down. Tachycardic, heart rates low 100s to 120s. Systolic blood pressure currently in the 150s. Maintained on Cardizem drip, anticoagulated on Eliquis. Labs pending. 01/08/2023 T-max 101.1, currently 99.2. Normal WBC. Pancultured, urine not yet collected. Chest x-ray reporting cardiomegaly with patchy left basilar atelectasis and/or acute infiltrate. Zyprexa initiated yesterday. Delirium persists. Sitter at bedside. Brain CT reported no acute intracranial hemorrhage or midline shift, moderate diffuse cerebral atrophy and mild chronic small vess el ischemic changes redemonstrated, no significant change from prior CT. Maintaining O2 sats in the high 90s on 1 L nasal cannula. Maintained on Cardizem drip, tachycardia improving -currently low 100s. Hemoglobin increased to 8.2. Magnesium 1.6, supplementation ordered. Objective - Vital Signs Vital signs: Vital Signs Temp 99 F 01/08/23 11:35 Pulse 90 01/08/23 11:35 Resp 20 01/08/23 11:35 BP 113/74 01/08/23 11:35 Pulse Ox 97 01/08/23 11:35 FiO2 Intake & Output 01/07/23 01/08/23 01/08/23 18:59 06:59 18:59 Intake Total 240 360 Output Total 625 650 800 Balance -116 -410 -021 Intake: Oral 240 360 Output: Urine 625 650 800 Other: Voiding Method Indwelling Catheter Indwelling Catheter Indwelling Catheter - Exam - Exam General : Disoriented, delirious Head: Normocephalic. Eyes: Sclerae nonicteric. Neck: Supple, no jugular venous distention. Lungs: Clear to auscultation. Heart: Irregular rate and rhythm, mild Tachycardia, S1-S2, no S3, no rub. Systolic murmur. Abdomen: Soft nontender, positive bowel sounds no organomegaly. Extremities:Left Hip fracture repair, minimal edema, no calf pain, positive DP pulse - Labs CBC & Chem 7: 01/08/23 08:43 01/07/23 10:28 Labs: Abnormal Lab Results - Last 24 Hours (Table) 01/07/23 01/08/23 Range/Units 15:39 08:43 RBC 2.42 L 2.59 L (4.30-5.90) m/uL Hgb 7.8 L 8.2 L (13.0-17.5) gm/dL Hct 22.9 L 24.4 L (39.0-53.0) % Microbiology - Last 24 Hours (Table) 01/05/23 21:22 Blood Culture - Preliminary Blood Assessment and Plan Assessment: Status post mechanical fall and fractured Left hip Acute metabolic encephalopathy, acute delirium, multifactorial, secondary to the above, anesthesia and pain meds. Chronic persistent atrial fibrillation w RVR History of CAD History of ischemic cardiomyopathy Seziure Disorder Plan: Continue on current medication regime ,monitoring and symptomatic treatment. Suspect atelectasis, Empiric Zithromax initiated. Urine culture ordered yesterday-collection pending. Pain management, Tylenol IV/po ordered. .Antiarrhythmics, anticoagulation as per cardiology. Maintain patient safety officer. The impression and plan of care has been dictated as directed. : I performed a history and examination of this patient, discussed the same with the dictator. I agree with the dictator's note ,documented as a scribe. Any additional findings or plans will be noted.
[2023-01-08 15:13] LABS: Appearance,Urine Clear (Clear); Bilirubin,Urine Negative (Negative); Blood,Urine Large (Negative); Color,Urine Light Red; Glucose,Urine (UA) Negative (Negative); Ketones,Urine 3+ (Negative); Leukocyte Esterase,Urine Small (Negative); Mucus,Urine Rare /hpf; Nitrite,Urine Negative (Negative); Protein,Urine 1+ (Negative); RBC,Urine >182 /hpf (0-5); Specific Gravity,Urine 1.018 (1.001-1.035); Urobilinogen,Urine <2.0 mg/dL (<2.0); WBC,Urine 37 /hpf (0-5)
--- NOTE | 2023-01-08 15:22 | P.PN ---
Subjective Progress Note Date: 01/08/23 History of Present Illness: The patient is an 87-year-old male who presented after a fall and a fractured hip. Consultation was requested for preoperative evaluation. The patient has a known history of CAD, status post stenting of the LAD in 2011, history of cardiomyopathy, chronic persistent atrial fibrillation. He has been very limited in his physical activity. He is awake but confused, unable to answer questions. He was in atrial flutter ablation with rapid ventricle response and was initiated on IV Cardizem in addition to beta jono. His rate is under better control at this time. He was anticoagulated as an outpatient. I am unable to obtain any history from him at this time. Medications: Lipitor 80 mg daily, metoprolol 50 mg twice a day, lisinopril 10 mg daily, isosorbide mononitrate 30 mg daily,Eliquis 5 mg twice a day 01/05 Patient seen and examined. Patient remains combative and with a one-to-one sitter and restraints. He has not been able to receive any oral medications and spitting medications out. Has been on a Cardizem drip at 15 with heart rates controlled. 01/06 Patient seen and examined. Patient not as combative and somewhat more restful however still needing restraints. He was able to tolerate some oral medications in applesauce. Remains on Cardizem drip at 15. Heart rate still in the 90s to 100 range. 01/07 Patient is seen today in follow-up. He continues to have confusion. He is on a Cardizem drip and unable to take oral medications at this time. Heart rate is in the low 100s to 120. We will not plan to make any medication changes at this time and patient to be monitored overnight and reassess tomorrow. 01/08 The patient is seen today in follow-up. He continues to be quite confused and has a safety counselor at the bedside. He did take eliquis and Toprol this morning. Heart rate is running between 79 and 106, blood pressure 113/74. Physical Examination: Vitals reviewed Head: Normocephalic. Eyes: Sclerae nonicteric. Neck: Good carotid upstroke, no bruit, no jugular venous distention. Lungs: Clear to auscultation. Heart: Irregular rate and rhythm, S1-S2, no S3, no rub. Systolic ejection murmur. Abdomen: Soft nontender, positive bowel sounds no organomegaly. Extremities: No edema, intact distal pulses. Impression: 1. Status post mechanical fall and fractured hip, s/p intertrochanteric hip screw placement and closed reduction 2. Chronic persistent atrial fibrillation, anticoagulated 3. History of CAD 4. History of ischemic cardiomyopathy 5. History of dementia 6. Confusion, combative, NPO Plan: Continue patient on Toprol-XL and eliquis. If he is unable to take oral medications, utilize Cardizem drip as needed. Continue with current supportive care. Prognosis guarded. Nurse practitioner note has been reviewed, I agree with the documented findings and plan of care. Patient was seen and examined. Objective - Vital Signs Vital signs: Vital Signs Temp 99 F 01/08/23 11:35 Pulse 90 01/08/23 11:35 Resp 20 01/08/23 11:35 BP 113/74 01/08/23 11:35 Pulse Ox 97 01/08/23 11:35 FiO2 Intake & Output 01/07/23 01/08/23 01/08/23 18:59 06:59 18:59 Intake Total 240 360 Output Total 625 650 800 Balance -625 -410 -113 Intake: Oral 240 360 Output: Urine 625 650 800 Other: Voiding Method Indwelling Catheter Indwelling Catheter Indwelling Catheter - Labs CBC & Chem 7: 01/08/23 08:43 01/07/23 10:28 Labs: Abnormal Lab Results - Last 24 Hours (Table) 01/07/23 01/08/23 Range/Units 15:39 08:43 RBC 2.42 L 2.59 L (4.30-5.90) m/uL Hgb 7.8 L 8.2 L (13.0-17.5) gm/dL Hct 22.9 L 24.4 L (39.0-53.0) % Microbiology - Last 24 Hours (Table) 01/05/23 21:22 Blood Culture - Preliminary Blood
[2023-01-08] MEDS: MAGNESIUM SULFATE-D5W PMX 1 GM in DEXTROSE/WATER 1 100ML.BAG IVPB SCH ×2 (15:33→18:44)
[2023-01-08] MEDS: ATORVASTATIN 40 MG TAB PO SCH (21:49)
[2023-01-09] MEDS: METOPROLOL SUCCINATE (ER) 50 MG TAB.ER.24H PO SCH ×3 (02:11→08:52)
[2023-01-09] MEDS: SODIUM CHLORIDE 0.9% 1,000 ML IV SCH ×2 (04:28→18:21)
[2023-01-09] MEDS: HYDROcodone/APAP 5-325MG 1 EACH TAB PO PRN ×3 (05:30→15:48)
--- NOTE | 2023-01-09 08:41 | P.PN ---
Progress Note - Text Progress Note Date: 01/09/23 Orthopedics: History of present illness: Patient is an 87-year-old male who is seen and examined at bedside for follow-up evaluation of his left hip. He is status post left intramedullary nail fixation for left intertrochanteric hip fracture performed yesterday, 01/04/2023. Patient continues to have confusion but is talking more this morning. He is currently resting comfortably. He currently has wrist restraints in place. His dressing over his proximal and distal left hip are clean, dry, and intact. Pneumatic boots are intact. The patient is arousable and says he does have some pain towards his left hip. He does have difficulty following commands. Patient continues to be seen and examined by medicine and cardiology. At presentation to the emergency department, patient did have atrial fibrillation with RVR. Patient did undergo echocardiogram. Eliquis has been restarted. He is also on a Cardizem drip. Urine culture was taken yesterday with results pending. Nursing states patient does live alone and his daughter lives next door. It was discussed patient will most likely need discharge to a rehabilitation facility at the time of discharge. Physical Exam Intramedullary [place] for Intertrochanteric Fracture: Status post surgical day number 5 Patient is examined lying in bed Patient is sleeping Vital signs stable Adequate chest excursion with deep inspiration and expiration Left calf is soft Pneumatic boots in place bilaterally Dressings over the proximal left hip is clean, dry, and intact; no erythema, purulence, or signs of infection Dressings over the distal femur have been removed by the patient; nonstick Telfa and Tegaderm will be reapplied No pain with palpation over the surgical sites Patient is performing dorsiflexion and plantar flexion bilaterally Assessment: Status post left intramedullary nail fixation for left intertrochanteric hip fracture Status post fall Atrial fibrillation with RVR Coronary artery disease History of ischemic cardiomyopathy History of dementia Plan: We will keep with her plan as set forth previously. 1. Patient to remain toe-touch weightbearing for balance only on the left lower extremity; patient may work with physical therapy to increase mobility and ambulation 2. Keep dressing over the left hip clean, dry, and intact 3. Discontinue Mann catheter when patient is able to increase mobility and ambulation 4. Continue pain control with oral [place] and IV Dilaudid as needed for pain control 5. Anticoagulation will be managed by cardiology and medicine; Eliquis has been resumed postoperatively 6. Medicine to continue following the patient for their other medical diagnosis 7. Patient will continue be seen in exam by medicine for his significant cardiac diagnoses; currently scheduled for echocardiogram today. 8. We'll continue to follow the patient closely. We did discuss patient will most likely need discharge to a rehabilitation facility. We will plan for e valuation with case management for discharge planning. Patient will need clearance by medicine and cardiology prior to discharge. 9. He is clear for discharge from an orthopedic standpoint. Patient can follow-up with Kavon Caldera PA-C or Dr. Percy Pedroza at [facility] in 2-3 weeks following discharge
[2023-01-09] MEDS: PHENYTOIN SODIUM EXTENDED 100 MG CAP PO SCH ×3 (08:50→20:15)
[2023-01-09] MEDS: FAMOTIDINE 20 MG TAB PO SCH ×2 (08:50→20:15)
[2023-01-09] MEDS: APIXABAN 5 MG TAB PO SCH ×2 (08:50→20:15)
[2023-01-09] MEDS: OLANZapine 2.5 MG TAB PO SCH (08:50)
[2023-01-09] MEDS: SENNOSIDES-DOCUSATE SODIUM 1 EACH TAB PO SCH ×2 (08:50→20:15)
[2023-01-09] MEDS: AZITHROMYCIN 500 MG in SODIUM CHLORIDE 0.9% 250 ML IVPB SCH (08:51)
[2023-01-09] MEDS: NYSTATIN 100,000 UNIT/GM POWD 15 GM TOPICAL SCH ×2 (08:53→20:15)
[2023-01-09] MEDS ORDERED: ACETAMINOPHEN IV (For NPO) 1,000 MG in EMPTY BAG 1 BAG IVPB PRN (10:05)
--- NOTE | 2023-01-09 10:10 | P.PN ---
Subjective Progress Note Date: 01/09/23 Status post left intramedullary nail fixation for left intertrochanteric hip fracture, status post fall, currently with acute delirium. Confused, requiring product safety administrator. Maintained on Cardizem drip, heart rates better controlled. Echo ordered. Maintaining O2 sats in the 90s on 4 L nasal cannula. 01/06/2023 Answering some simple questions, otherwise delirium persists, wearing mittens. echo reporting EF 40-45%. Continues on Cardizem drip. T-max 100.4, currently afebrile, WBC within normal limits. Blood cultures pending. Maintaining O2 sats in the 90s on room air.Hemoglobin decreased to 7.9, repeat level pending. Tachycardic. Receiving potassium supplements per protocol for potassium 3.3. For potassium of 3.3 renal function stable. 01/07/2023 confusion persists, received Ativan and Dilaudid during the cat sitter hours. febrile, T-max 101.1,Ax., Maintaining O2 sats of 99% on 4 L nasal cannula which can be titrated down. Tachycardic, heart rates low 100s to 120s. Systolic blood pressure currently in the 150s. Maintained on Cardizem drip, anticoagulated on Eliquis. Labs pending. 01/08/2023 T-max 101.1, currently 99.2. Normal WBC. Pancultured, urine not yet collected. Chest x-ray reporting cardiomegaly with patchy left basilar atelectasis and/or acute infiltrate. Zyprexa initiated yesterday. Delirium persists. Sitter at bedside. Brain CT reported no acute intracranial hemorrhage or midline shift, moderate diffuse cerebral atrophy and mild chronic small vess el ischemic changes redemonstrated, no significant change from prior CT. Maintaining O2 sats in the high 90s on 1 L nasal cannula. Maintained on Cardizem drip, tachycardia improving -currently low 100s. Hemoglobin increased to 8.2. Magnesium 1.6, supplementation ordered. 01/09/2023 remains off of IV push Dilaudid, IV push Ativan, much more alert this morning, conversing with PCP appropriately. Patient does have a baseline stutter. Hard of hearing, hearing aids at bedside counter-need to be put back in his ears. Telemetry A. fib with RVR, returning on Cardizem drip. Denies chest pain, palpitations or shortness of breath. Minimal diet intake. Objective - Vital Signs Vital signs: Vital Signs Temp 99.2 F 01/08/23 23:14 Pulse 118 H 01/09/23 04:11 Resp 17 01/08/23 23:14 BP 148/95 01/09/23 04:11 Pulse Ox 95 01/09/23 04:11 FiO2 Intake & Output 01/08/23 01/09/23 01/09/23 18:59 06:59 18:59 Intake Total 540 240 Output Total 800 400 Balance -260 -400 240 Intake: Oral 540 240 Output: Urine 800 400 Other: Voiding Method Indwelling Catheter Indwelling Catheter - Exam - Exam General : Alert and oriented 1-2, conversing appropriately, recognizes Dr. Lopez. Head: Normocephalic. Eyes: Sclerae nonicteric. Neck: Supple, no jugular venous distention. Lungs: Clear to auscultation. Heart: Irregular rate and rhythm, mild Tachycardia, S1-S2, no S3, no rub. Systolic murmur. Abdomen: Soft nontender, positive bowel sounds no organomegaly. Extremities:Left Hip fracture repair, minimal edema, no calf pain, positive DP pulse - Labs CBC & Chem 7: 01/08/23 08:43 01/07/23 10:28 Labs: Abnormal Lab Results - Last 24 Hours (Table) 01/08/23 01/08/23 Range/Units 08:43 14:33 RBC 2.59 L (4.30-5.90) m/uL Hgb 8.2 L (13.0-17.5) gm/dL Hct 24.4 L (39.0-53.0) % Urine Protein 1+ H (Negative) Urine Ketones 3+ H (Negative) Urine Blood Large H (Negative) Ur Leukocyte Esterase Small H (Negative) Urine RBC >182 H (0-5) /hpf Urine WBC 37 H (0-5) /hpf Urine Mucus Rare H (None) /hpf Microbiology - Last 24 Hours (Table) 01/07/23 11:00 Blood Culture - Preliminary Blood 01/07/23 11:12 Blood Culture - Preliminary Blood 01/05/23 21:22 Blood Culture - Preliminary Blood Assessment and Plan Assessment: Status post mechanical fall and fractured Left hip Acute metabolic encephalopathy, acute delirium, multifactorial, secondary to the above, anesthesia and pain meds, improving Atelectasis Chronic persistent atrial fibrillation w RVR History of CAD History of ischemic cardiomyopathy Seziure Disorder Plan: Continue on current medication regime ,monitoring and symptomatic treatment. Pain management, Tylenol IV/po ordered.Antiarrhythmics, anticoagulation as per cardiology. PT/OT. Discussed with RN-Remove soft wrist restraints, assist with all meals and to place patient's hearing aids in his ears. The impression and plan of care has been dictated as directed. : I performed a history and examination of this patient, discussed the same with the dictator. I agree with the dictator's note ,documented as a scribe. Any additional findings or plans will be noted.
[2023-01-09] MEDS ORDERED: METOPROLOL SUCCINATE (ER) 25 MG TAB.ER.24H PO STA (10:26)
--- NOTE | 2023-01-09 11:48 | P.PN ---
Subjective Progress Note Date: 01/09/23 History of Present Illness: The patient is an 87-year-old male who presented after a fall and a fractured hip. Consultation was requested for preoperative evaluation. The patient has a known history of CAD, status post stenting of the LAD in 2011, history of cardiomyopathy, chronic persistent atrial fibrillation. He has been very limited in his physical activity. He is awake but confused, unable to answer questions. He was in atrial flutter ablation with rapid ventricle response and was initiated on IV Cardizem in addition to beta jono. His rate is under better control at this time. He was anticoagulated as an outpatient. I am unable to obtain any history from him at this time. Medications: Lipitor 80 mg daily, metoprolol 50 mg twice a day, lisinopril 10 mg daily, isosorbide mononitrate 30 mg daily,Eliquis 5 mg twice a day 01/05 Patient seen and examined. Patient remains combative and with a one-to-one sitter and restraints. He has not been able to receive any oral medications and spitting medications out. Has been on a Cardizem drip at 15 with heart rates controlled. 01/06 Patient seen and examined. Patient not as combative and somewhat more restful however still needing restraints. He was able to tolerate some oral medications in applesauce. Remains on Cardizem drip at 15. Heart rate still in the 90s to 100 range. 01/07 Patient is seen today in follow-up. He continues to have confusion. He is on a Cardizem drip and unable to take oral medications at this time. Heart rate is in the low 100s to 120. We will not plan to make any medication changes at this time and patient to be monitored overnight and reassess tomorrow. 01/08 The patient is seen today in follow-up. He continues to be quite confused and has a safety equipment testing specialist at the bedside. He did take eliquis and Toprol this morning. Heart rate is running between 79 and 106, blood pressure 113/74. 01/09 The patient is more alert today. He has been taking his oral medications for the last day and a half. His heart rate is elevated running 118 to 130. Blood pressure 148/95. Physical Examination: Vitals reviewed Head: Normocephalic. Eyes: Sclerae nonicteric. Neck: Good carotid upstroke, no bruit, no jugular venous distention. Lungs: Clear to auscultation. Heart: Irregular rate and rhythm, S1-S2, no S3, no rub. Systolic ejection murmur. Abdomen: Soft nontender, positive bowel sounds no organomegaly. Extremities: No edema, intact distal pulses. Impression: 1. Status post mechanical fall and fractured hip, s/p intertrochanteric hip screw placement and closed reduction 2. Chronic persistent atrial fibrillation, anticoagulated 3. History of CAD 4. History of ischemic cardiomyopathy 5. History of dementia 6. Confusion, combative-resolved Plan: Continue patient on Toprol-XL but increase to 75 mg twice daily, one dose of 25 mg now Continue eliquis and other cardiac medications. Monitor heart rate. Continue with current supportive care. Prognosis guarded. Nurse practitioner note has been reviewed, I agree with the documented findings and plan of care. Patient was seen and examined. Objective - Vital Signs Vital signs: Vital Signs Temp 99.2 F 01/08/23 23:14 Pulse 118 H 01/09/23 04:11 Resp 17 01/08/23 23:14 BP 148/95 01/09/23 04:11 Pulse Ox 95 01/09/23 04:11 FiO2 Intake & Output 01/08/23 01/09/23 01/09/23 18:59 06:59 18:59 Intake Total 540 240 Output Total 800 400 Balance -260 -400 240 Intake: Oral 540 240 Output: Urine 800 400 Other: Voiding Method Indwelling Catheter Indwelling Catheter - Labs CBC & Chem 7: 01/08/23 08:43 01/07/23 10:28 Labs: Abnormal Lab Results - Last 24 Hours (Table) 01/08/23 Range/Units 14:33 Urine Protein 1+ H (Negative) Urine Ketones 3+ H (Negative) Urine Blood Large H (Negative) Ur Leukocyte Esterase Small H (Negative) Urine RBC >182 H (0-5) /hpf Urine WBC 37 H (0-5) /hpf Urine Mucus Rare H (None) /hpf Microbiology - Last 24 Hours (Table) 01/07/23 11:00 Blood Culture - Preliminary Blood 01/07/23 11:12 Blood Culture - Preliminary Blood 01/05/23 21:22 Blood Culture - Preliminary Blood
[2023-01-09] MEDS ORDERED: ACETAMINOPHEN IV (For NPO) 1,000 MG in EMPTY BAG 1 BAG IVPB SCH (12:00)
[2023-01-09 14:41] VITALS: BMI 31.5
--- NOTE | 2023-01-09 17:32 | XR ---
EXAMINATION TYPE: XR chest 1V DATE OF EXAM: 01/09/2023 5:27 PM COMPARISON: Chest radiographs from 01/07/2023 TECHNIQUE: XR chest 1V Frontal view of the chest. CLINICAL INDICATION:Male, 87 years old with history of aspiration; FINDINGS: Lungs/Pleura: Left lower lung airspace opacities. Blunting of the left costophrenic angle. There is n o evidence of right pleural effusion, focal consolidation, or pneumothorax. Pulmonary vascularity: Unremarkable. Heart/mediastinum: Cardiomediastinal silhouette is enlarged and stable. Musculoskeletal: No acute osseous pathology. IMPRESSION: Left lower lung airspace opacities could be compatible withe aspiration Cardiomegaly with trace left pleural effusion.
[2023-01-09] MEDS: metroNIDAZOLE-NS PMX 500 MG in SALINE 1 100ML.BAG IVPB SCH (18:21)
[2023-01-09] MEDS: METOPROLOL SUCCINATE (ER) 25 MG TAB.ER.24H PO SCH (20:15)
[2023-01-09] MEDS: ATORVASTATIN 40 MG TAB PO SCH (20:15)
[2023-01-10] MEDS: metroNIDAZOLE-NS PMX 500 MG in SALINE 1 100ML.BAG IVPB SCH ×3 (00:44→16:04)
[2023-01-10] MEDS: SODIUM CHLORIDE 0.9% 1,000 ML IV SCH ×2 (05:30→20:39)
[2023-01-10] MEDS: HYDROcodone/APAP 5-325MG 1 EACH TAB PO PRN ×3 (08:07→21:58)
[2023-01-10] MEDS: PHENYTOIN SODIUM EXTENDED 100 MG CAP PO SCH ×3 (08:13→20:39)
[2023-01-10] MEDS: AZITHROMYCIN 500 MG in SODIUM CHLORIDE 0.9% 250 ML IVPB SCH (08:14)
[2023-01-10] MEDS: SENNOSIDES-DOCUSATE SODIUM 1 EACH TAB PO SCH ×2 (08:14→20:38)
[2023-01-10] MEDS: METOPROLOL SUCCINATE (ER) 25 MG TAB.ER.24H PO SCH (08:14)
[2023-01-10] MEDS: FAMOTIDINE 20 MG TAB PO SCH ×2 (08:14→20:38)
[2023-01-10] MEDS: APIXABAN 5 MG TAB PO SCH ×2 (08:14→20:38)
[2023-01-10] MEDS: OLANZapine 2.5 MG TAB PO SCH (08:35)
--- NOTE | 2023-01-10 08:55 | P.PN ---
Subjective Progress Note Date: 01/10/23 This is an 87-year-old male who is status post intramedullary nail fixation for left intertrochanteric hip fracture on 01/04/2023. Patient is seen and evaluated at bedside today. Patient is a poor historian and has been confused. Per nursing, patient remains in a-fib RVR and does complain of some pain in the hip. Objective - Vital Signs Vital signs: Vital Signs Temp 99.1 F 01/10/23 04:00 Pulse 122 H 01/10/23 04:00 Resp 19 01/10/23 04:00 BP 130/86 01/10/23 04:00 Pulse Ox 94 L 01/10/23 04:00 FiO2 Intake & Output 01/09/23 01/10/23 01/10/23 18:59 06:59 18:59 Intake Total 360 Output Total 90 Balance 360 -90 Weight 105.5 kg Intake: Oral 360 Output: Post Void Residual 90 Other: Voiding Method Indwelling Catheter Diaper # Voids 1 - Exam Vital signs are stable. Patient is in no acute distress and is confused. Calf is soft and nontender to palpation. Dressing is clean, dry, and intact. Left lower extremity is warm and well perfused. Sensation intact. Neurovascular sta tus and circulatory status are intact. - Labs CBC & Chem 7: 01/08/23 08:43 01/07/23 10:28 Assessment and Plan Assessment: Status post intramedullary nail fixation of the left intertrochanteric hip frac jani. (1) Atrial fibrillation with RVR Current Visit: Yes Status: Acute Code(s): I48.91 - UNSPECIFIED ATRIAL FIBRILLATION SNOMED Code(s): 031879601400311 (2) Closed left hip fracture Current Visit: Yes Status: Acute Code(s): S72.002A - FRACTURE OF UNSP PART OF NECK OF LEFT FEMUR, INIT SNOMED Code(s): 136606195 (3) Fall Current Visit: Yes Status: Acute Code(s): W19.XXXA - UNSPECIFIED FALL, INITIAL ENCOUNTER SNOMED Code(s): 4626321 Plan: 1. Toe-touch weightbearing to the left lower extremity. 2. Patient is on Eliquis for anticoagulation per internal medicine. 3. Appreciate input from internal medicine and cardiology. 4. Patient is clear for discharge to rehab from an orthopedic standpoint once cleared medically.
[2023-01-10 09:05] LABS: Basophils % (A) 0 %; Eosinophils # (A) 0.2 k/uL (0-0.7); Eosinophils % (A) 2 %; HCT 23.9 % (39.0-53.0); HGB 7.9 gm/dL (13.0-17.5); Lymphocytes # (A) 1.5 k/uL (1.0-4.8); Lymphocytes % (A) 18 %; MCH 30.7 pg (25.0-35.0); MCHC 32.9 g/dL (31.0-37.0); MCV 93.3 fL (80.0-100.0); Mean Platelet Volume 8.8; Monocytes # (A) 0.4 k/uL (0-1.0); Monocytes % (A) 4 %; Neutrophils # (A) 6.4 k/uL (1.3-7.7); Neutrophils % (A) 74 %; Platelet Count 197 k/uL (150-450); Poikilocytosis Slight; RBC 2.57 m/uL (4.30-5.90); RDW 15.4 % (11.5-15.5); WBC 8.6 k/uL (3.8-10.6)
[2023-01-10 09:24] LABS: African American GFR (CKD) >90 (>60 ml/min/1.73 sqM); Anion Gap 10 mmol/L; Blood Urea Nitrogen 18 mg/dL (9-20); Calcium 7.4 mg/dL (8.4-10.2); Carbon Dioxide 22 mmol/L (22-30); Chloride 112 mmol/L (98-107); Glucose 114 mg/dL (74-99); Non-African American GFR(CKD) >90 (>60 ml/min/1.73 sqM); Potassium 3.3 mmol/L (3.5-5.1); Sodium 144 mmol/L (137-145)
[2023-01-10] MEDS ORDERED: Potassium Replacement Protocol 1 EACH MISC MISCELLANE PRN (13:24)
[2023-01-10] MEDS: NYSTATIN 100,000 UNIT/GM POWD 15 GM TOPICAL SCH ×2 (14:22→20:39)
[2023-01-10] MEDS: POTASSIUM CHLORIDE ER 20 MEQ TAB.ER PO SCH ×2 (14:22→16:04)
--- NOTE | 2023-01-10 16:55 | P.PN ---
Subjective Progress Note Date: 01/10/23 History of Present Illness: The patient is an 87-year-old male who presented after a fall and a fractured hip. Consultation was requested for preoperative evaluation. The patient has a known history of CAD, status post stenting of the LAD in 2011, history of cardiomyopathy, chronic persistent atrial fibrillation. He has been very limited in his physical activity. He is awake but confused, unable to answer questions. He was in atrial flutter ablation with rapid ventricle response and was initiated on IV Cardizem in addition to beta jono. His rate is under better control at this time. He was anticoagulated as an outpatient. I am unable to obtain any history from him at this time. Medications: Lipitor 80 mg daily, metoprolol 50 mg twice a day, lisinopril 10 mg daily, isosorbide mononitrate 30 mg daily,Eliquis 5 mg twice a day 01/05 Patient seen and examined. Patient remains combative and with a one-to-one sitter and restraints. He has not been able to receive any oral medications and spitting medications out. Has been on a Cardizem drip at 15 with heart rates controlled. 01/06 Patient seen and examined. Patient not as combative and somewhat more restful however still needing restraints. He was able to tolerate some oral medications in applesauce. Remains on Cardizem drip at 15. Heart rate still in the 90s to 100 range. 01/07 Patient is seen today in follow-up. He continues to have confusion. He is on a Cardizem drip and unable to take oral medications at this time. Heart rate is in the low 100s to 120. We will not plan to make any medication changes at this time and patient to be monitored overnight and reassess tomorrow. 01/08 The patient is seen today in follow-up. He continues to be quite confused and has a manager drug safety at the bedside. He did take eliquis and Toprol this morning. Heart rate is running between 79 and 106, blood pressure 113/74. 01/09 The patient is more alert today. He has been taking his oral medications for the last day and a half. His heart rate is elevated running 118 to 130. Blood pressure 148/95. 01/10 Patient is confused, he states his name and follow some simple commands, however he is not very cooperative and will not leave his telemetry on. Heart rates have been 1001 30s. Physical Examination: Vitals reviewed Head: Normocephalic. Eyes: Sclerae nonicteric. Neck: Good carotid upstroke, no bruit, no jugular venous distention. Lungs: Clear to auscultation. Heart: Irregular rate and rhythm, S1-S2, no S3, no rub. Systolic ejection murmur. Abdomen: Soft nontender, positive bowel sounds. Extremities: No edema, intact distal pulses. Neuro: Confused Impression: 1. Status post mechanical fall and fractured hip, s/p intertrochanteric hip screw placement and closed reduction 2. Chronic persistent atrial fibrillation, anticoagulated 3. History of CAD 4. History of ischemic cardiomyopathy 5. History of dementia 6. Altered mental status Plan: Increase Toprol to 100mg BID. Continue eliquis and other cardiac medications. Monitor heart rate. Continue with current supportive care. Prognosis guarded. Nurse practitioner note has been reviewed, I agree with the documented findings and plan of care. Patient was seen and examined. Objective - Vital Signs Vital signs: Vital Signs Temp 98.9 F 01/10/23 15:28 Pulse 117 H 01/10/23 15:28 Resp 16 01/10/23 15:28 BP 110/67 01/10/23 15:28 Pulse Ox 96 01/10/23 15:28 FiO2 Intake & Output 01/09/23 01/10/23 01/10/23 18:59 06:59 18:59 Intake Total 360 Output Total 90 450 Balance 360 -90 -450 Weight 105.5 kg Intake: Oral 360 Output: Urine 450 Coude 450 Post Void Residual 90 Other: Voiding Method Indwelling Catheter Diaper Diaper # Voids 1 - Labs CBC & Chem 7: 01/10/23 07:51 01/10/23 07:46 Labs: Abnormal Lab Results - Last 24 Hours (Table) 01/10/23 01/10/23 Range/Units 07:46 07:51 RBC 2.57 L (4.30-5.90) m/uL Hgb 7.9 L (13.0-17.5) gm/dL Hct 23.9 L (39.0-53.0) % Potassium 3.3 L (3.5-5.1) mmol/L Chloride 112 H (98-107) mmol/L Creatinine 0.41 L (0.66-1.25) mg/dL Glucose 114 H (74-99) mg/dL Calcium 7.4 L (8.4-10.2) mg/dL Microbiology - Last 24 Hours (Table) 01/08/23 14:43 Urine Culture - Final Urine,Voided 01/07/23 11:00 Blood Culture - Preliminary Blood 01/07/23 11:12 Blood Culture - Preliminary Blood 01/05/23 21:22 Blood Culture - Preliminary Blood
[2023-01-10] MEDS: ATORVASTATIN 40 MG TAB PO SCH (20:38)
[2023-01-10] MEDS: METOPROLOL TARTRATE 50 MG TAB PO SCH (20:38)
[2023-01-11] MEDS: metroNIDAZOLE-NS PMX 500 MG in SALINE 1 100ML.BAG IVPB SCH ×3 (01:02→16:20)
[2023-01-11] MEDS: APIXABAN 5 MG TAB PO SCH ×2 (08:55→20:22)
[2023-01-11] MEDS: HYDROcodone/APAP 5-325MG 1 EACH TAB PO PRN ×2 (08:55→16:20)
[2023-01-11] MEDS: METOPROLOL TARTRATE 50 MG TAB PO SCH ×2 (08:55→20:22)
[2023-01-11] MEDS: SENNOSIDES-DOCUSATE SODIUM 1 EACH TAB PO SCH ×2 (08:55→20:22)
[2023-01-11] MEDS: PHENYTOIN SODIUM EXTENDED 100 MG CAP PO SCH ×3 (08:55→20:23)
[2023-01-11] MEDS: FAMOTIDINE 20 MG TAB PO SCH ×2 (08:56→20:22)
[2023-01-11] MEDS: NYSTATIN 100,000 UNIT/GM POWD 15 GM TOPICAL SCH ×2 (09:09→20:23)
[2023-01-11] MEDS: OLANZapine 2.5 MG TAB PO SCH (09:09)
[2023-01-11] MEDS: SODIUM CHLORIDE 0.9% 1,000 ML IV SCH ×2 (09:10→16:22)
--- NOTE | 2023-01-11 12:41 | P.PN ---
Subjective Progress Note Date: 01/11/23 History of Present Illness: The patient is an 87-year-old male who presented after a fall and a fractured hip. Consultation was requested for preoperative evaluation. The patient has a known history of CAD, status post stenting of the LAD in 2011, history of cardiomyopathy, chronic persistent atrial fibrillation. He has been very limited in his physical activity. He is awake but confused, unable to answer questions. He was in atrial flutter ablation with rapid ventricle response and was initiated on IV Cardizem in addition to beta jono. His rate is under better control at this time. He was anticoagulated as an outpatient. I am unable to obtain any history from him at this time. Medications: Lipitor 80 mg daily, metoprolol 50 mg twice a day, lisinopril 10 mg daily, isosorbide mononitrate 30 mg daily,Eliquis 5 mg twice a day 01/05 Patient seen and examined. Patient remains combative and with a one-to-one sitter and restraints. He has not been able to receive any oral medications and spitting medications out. Has been on a Cardizem drip at 15 with heart rates controlled. 01/06 Patient seen and examined. Patient not as combative and somewhat more restful however still needing restraints. He was able to tolerate some oral medications in applesauce. Remains on Cardizem drip at 15. Heart rate still in the 90s to 100 range. 01/07 Patient is seen today in follow-up. He continues to have confusion. He is on a Cardizem drip and unable to take oral medications at this time. Heart rate is in the low 100s to 120. We will not plan to make any medication changes at this time and patient to be monitored overnight and reassess tomorrow. 01/08 The patient is seen today in follow-up. He continues to be quite confused and has a safety and skill based pay manager at the bedside. He did take eliquis and Toprol this morning. Heart rate is running between 79 and 106, blood pressure 113/74. 01/09 The patient is more alert today. He has been taking his oral medications for the last day and a half. His heart rate is elevated running 118 to 130. Blood pressure 148/95. 01/10 Patient is confused, he states his name and follow some simple commands, however he is not very cooperative and will not leave his telemetry on. Heart rates have been [id number]. 01/11 Patient is awake and alert, states that he wants to just go home, still with some confusion. Denies any pain today. He is refusing telemetry, will not leave it on. HR 100-120. Physical Examination: Vitals reviewed Head: Normocephalic. Eyes: Sclerae nonicteric. Neck: Good carotid upstroke, no bruit, no jugular venous distention. Lungs: Clear to auscultation. Heart: Irregular rate and rhythm, S1-S2, no S3, no rub. Systolic ejection murmur. Abdomen: Soft nontender, positive bowel sounds. Extremities: No edema, intact distal pulses. Neuro: Confused Impression: 1. Status post mechanical fall and fractured hip, s/p intertrochanteric hip screw placement and closed reduction 2. Chronic persistent atrial fibrillation, anticoagulated 3. History of CAD 4. History of ischemic cardiomyopathy 5. History of dementia 6. Altered mental status Plan: Patient non-compliant with care. Continue Toprol 100mg BID. Continue eliquis and other cardiac medications. Monitor heart rate. Continue with current supportive care. Prognosis guarded. Nurse practitioner note has been reviewed, I agree with the documented findings and plan of care. Patient was seen and examined. Objective - Vital Signs Vital signs: Vital Signs Temp 99.2 F 01/11/23 04:00 Pulse 123 H 01/11/23 08:00 Resp 16 01/11/23 08:00 BP 139/82 01/11/23 08:00 Pulse Ox 97 01/11/23 08:00 FiO2 Intake & Output 01/10/23 01/11/23 01/11/23 18:59 06:59 18:59 Intake Total 600 180 Output Total 450 375 Balance 150 -375 180 Intake: Intake, IV Titration 600 Amount Sodium Chloride 0.9% 1, 600 000 ml @ 75 mls/hr IV . [id number] [facility] Rx#:[id number] Oral 180 Output: Urine 450 375 Coude 450 Other: Voiding Method Diaper Indwelling Catheter - Labs CBC & Chem 7: 01/10/23 07:51 01/10/23 07:46 Labs: Microbiology - Last 24 Hours (Table) 01/07/23 11:00 Blood Culture - Preliminary Blood 01/07/23 11:12 Blood Culture - Preliminary Blood 01/08/23 14:43 Urine Culture - Final Urine,Voided 01/05/23 21:22 Blood Culture - Preliminary Blood
--- NOTE | 2023-01-11 14:41 | P.PN ---
Subjective Progress Note Date: 01/10/23 Status post left intramedullary nail fixation for left intertrochanteric hip fracture, status post fall, currently with acute delirium. Confused, requiring safety deposit boxes custodian. Maintained on Cardizem drip, heart rates better controlled. Echo ordered. Maintaining O2 sats in the 90s on 4 L nasal cannula. 01/10/2023 Patient is seen and evaluated at bedside; no specific complaints reported; patient remains pleasantly confused Vital signs are reviewed and heart rate remains elevated between 100-130 Cardiology is recommending to increase Toprol up to 100 mg twice a day and continue with anticoagulation and other cardiac medications Patient is toe-touch weightbearing left lower extremity; orthopedic surgery has cleared patient for discharge once cleared by cardiology Objective - Vital Signs Vital signs: Vital Signs Temp 98.1 F 01/10/23 12:00 Pulse 120 H 01/10/23 13:53 Resp 18 01/10/23 13:53 BP 122/80 01/10/23 12:00 Pulse Ox 98 01/10/23 12:00 FiO2 Intake & Output 01/09/23 01/10/23 01/10/23 18:59 06:59 18:59 Intake Total 360 Output Total 90 Balance 360 -90 Weight 105.5 kg Intake: Oral 360 Output: Post Void Residual 90 Other: Voiding Method Indwelling Catheter Diaper Diaper # Voids 1 - Exam General : Alert and oriented 1-2, conversing appropriately, recognizes Dr. Lopez. Head: Normocephalic. Eyes: Sclerae nonicteric. Neck: Supple, no jugular venous distention. Lungs: Clear to auscultation. Heart: Irregular rate and rhythm, mild Tachycardia, S1-S2, no S3, no rub. Systolic murmur. Abdomen: Soft nontender, positive bowel sounds no organomegaly. Extremities:Left Hip fracture repair, minimal edema, no calf pain, positive DP pulse - Labs CBC & Chem 7: 01/10/23 07:51 01/10/23 07:46 Labs: Abnormal Lab Results - Last 24 Hours (Table) 01/10/23 01/10/23 Range/Units 07:46 07:51 RBC 2.57 L (4.30-5.90) m/uL Hgb 7.9 L (13.0-17.5) gm/dL Hct 23.9 L (39.0-53.0) % Potassium 3.3 L (3.5-5.1) mmol/L Chloride 112 H (98-107) mmol/L Creatinine 0.41 L (0.66-1.25) mg/dL Glucose 114 H (74-99) mg/dL Calcium 7.4 L (8.4-10.2) mg/dL Assessment and Plan Assessment: Status post mechanical fall and fractured Left hip Acute metabolic encephalopathy, acute delirium, multifactorial, secondary to the above, anesthesia and pain meds, improving Atelectasis Chronic persistent atrial fibrillation w RVR History of CAD History of ischemic cardiomyopathy Seziure Disorder Plan: Continue on current medication regime ,monitoring and symptomatic treatment. Pain management, Tylenol IV/po ordered.Antiarrhythmics, a nticoagulation as per cardiology. PT/OT. Discussed with RN-Remove soft wrist restraints, assist with all meals and to place patient's hearing aids in his ears.
[2023-01-11] MEDS: ATORVASTATIN 40 MG TAB PO SCH (20:23)
[2023-01-12] MEDS: metroNIDAZOLE-NS PMX 500 MG in SALINE 1 100ML.BAG IVPB SCH ×4 (03:15→23:08)
[2023-01-12] MEDS: FAMOTIDINE 20 MG TAB PO SCH ×2 (08:48→20:55)
[2023-01-12] MEDS: SENNOSIDES-DOCUSATE SODIUM 1 EACH TAB PO SCH ×2 (08:48→20:54)
[2023-01-12] MEDS: OLANZapine 2.5 MG TAB PO SCH (08:48)
[2023-01-12] MEDS: PHENYTOIN SODIUM EXTENDED 100 MG CAP PO SCH ×3 (08:48→20:55)
[2023-01-12] MEDS: APIXABAN 5 MG TAB PO SCH ×2 (08:48→20:54)
[2023-01-12] MEDS: NYSTATIN 100,000 UNIT/GM POWD 15 GM TOPICAL SCH ×2 (08:49→20:55)
[2023-01-12] MEDS: HYDROcodone/APAP 5-325MG 1 EACH TAB PO PRN ×2 (08:49→18:09)
[2023-01-12] MEDS: METOPROLOL TARTRATE 50 MG TAB PO SCH ×2 (08:49→20:54)
[2023-01-12] MEDS: SODIUM CHLORIDE 0.9% 1,000 ML IV SCH ×2 (08:50→23:08)
[2023-01-12 09:07] LABS: HCT 22.9 % (39.0-53.0); HGB 7.5 gm/dL (13.0-17.5); Hypochromasia Slight; MCH 30.6 pg (25.0-35.0); MCHC 32.8 g/dL (31.0-37.0); MCV 93.3 fL (80.0-100.0); Mean Platelet Volume 8.2; Platelet Count 206 k/uL (150-450); Poikilocytosis Slight; RBC 2.46 m/uL (4.30-5.90); RDW 15.7 % (11.5-15.5); WBC 7.1 k/uL (3.8-10.6)
[2023-01-12 09:11] LABS: African American GFR (CKD) >90 (>60 ml/min/1.73 sqM); Anion Gap 9 mmol/L; Blood Urea Nitrogen 14 mg/dL (9-20); Calcium 7.1 mg/dL (8.4-10.2); Carbon Dioxide 22 mmol/L (22-30); Chloride 112 mmol/L (98-107); Glucose 111 mg/dL (74-99); Magnesium 1.4 mg/dL (1.6-2.3); Non-African American GFR(CKD) >90 (>60 ml/min/1.73 sqM); Potassium 3.7 mmol/L (3.5-5.1); Sodium 143 mmol/L (137-145)
[2023-01-12] MEDS ORDERED: Magnesium Replacement Protocol 1 EACH MISC MISCELLANE PRN (11:47)
--- NOTE | 2023-01-12 13:05 | P.PN ---
Subjective Progress Note Date: 01/12/23 HISTORY OF PRESENT ILLNESS: History of Present Illness: The patient is an 87-year-old male who presented after a fall and a fractured hip. Consultation was requested for preoperative evaluation. The patient has a known history of CAD, status post stenting of the LAD in 2011, history of cardiomyopathy, chronic persistent atrial fibrillation. He has been very limited in his physical activity. He is awake but confused, unable to answer questions. He was in atrial flutter ablation with rapid ventricle response and was initiated on IV Cardizem in addition to beta jono. His rate is under better control at this time. He was anticoagulated as an outpatient. I am unable to obtain any history from him at this time. Medications: Lipitor 80 mg daily, metoprolol 50 mg twice a day, lisinopril 10 mg daily, isosorbide mononitrate 30 mg daily,Eliquis 5 mg twice a day 01/05 Patient seen and examined. Patient remains combative and with a one-to-one sitter and restraints. He has not been able to receive any oral medications and spitting medications out. Has been on a Cardizem drip at 15 with heart rates controlled. 01/06 Patient seen and examined. Patient not as combative and somewhat more restful however still needing restraints. He was able to tolerate some oral medications in applesauce. Remains on Cardizem drip at 15. Heart rate still in the 90s to 100 range. 01/07 Patient is seen today in follow-up. He continues to have confusion. He is on a Cardizem drip and unable to take oral medications at this time. Heart rate is in the low 100s to 120. We will not plan to make any medication changes at this time and patient to be monitored overnight and reassess tomorrow. 01/08 The patient is seen today in follow-up. He continues to be quite confused and has a safety spec at the bedside. He did take eliquis and Toprol this morning. Heart rate is running between 79 and 106, blood pressure 113/74. 01/09 The patient is more alert today. He has been taking his oral medications for the last day and a half. His heart rate is elevated running 118 to 130. Blood pressure 148/95. 01/10 Patient is confused, he states his name and follow some simple commands, however he is not very cooperative and will not leave his telemetry on. Heart rates have been [id number]. 01/11 Patient is awake and alert, states that he wants to just go home, still with some confusion. Denies any pain today. He is refusing telemetry, will not leave it on. HR 100-120. 01/12/2023 Patient examined this morning at the bedside. Patient denies chest pain or pressure. He denies shortness of breath. Telemetry reveals atrial fibrillation with RVR with heart rates in the 120/130s. Blood pressure is stable. PHYSICAL EXAM: VITAL SIGNS: Reviewed. GENERAL: Well-developed in no acute distress. NECK: Supple. No JVD or thyromegaly LUNGS: Respirations even and unlabored. Lungs essentially clear to auscultation bilaterally. HEART: Tachycardic. Irregular rate and rhythm. S1 and S2 heard. EXTREMITIES: Normal range of motion. No clubbing or cyanosis. Peripheral pulses intact. No lower extremity edema ASSESSMENT: 1. Status post mechanical fall and fractured hip, s/p intertrochanteric hip screw placement and closed reduction 2. Chronic persistent atrial fibrillation, anticoagulated 3. History of CAD 4. History of ischemic cardiomyopathy 5. History of dementia 6. Altered mental status PLAN: Continue current cardiac medications Add verapamil 40 mg twice a day for optimal heart rate control Discharge planning in place for ECF Further recommendations pending patient's course Nurse practitioner note has been reviewed by physician. Signing provider agrees with the documented findings, assessment, and plan of care. Objective - Vital Signs Vital signs: Vital Signs Temp 98.4 F 01/12/23 08:00 Pulse 132 H 01/12/23 08:00 Resp 16 01/12/23 08:00 BP 137/76 01/12/23 08:00 Pulse Ox 97 01/12/23 08:00 FiO2 Intake & Output 01/11/23 01/12/23 01/12/23 18:59 06:59 18:59 Intake Total 780 150 Output Total 700 Balance 780 -700 150 Intake: Intake, IV Titration 600 150 Amount Sodium Chloride 0.9% 1, 600 000 ml @ 75 mls/hr IV . [id number] [facility] Rx#:[id number] cefTRIAXone 1 gm In 50 Sodium Chloride 0.9% 50 ml @ 100 mls/hr IVPB Q24HR [facility] Rx#:[id number] metroNIDAZOLE-NS PMX 500 100 mg In Saline 1 100ml.bag @ 100 mls/hr IVPB Q8H REPLACED BY [facility] Rx#:[id number] Oral 180 Output: Urine 700 Other: Voiding Method Indwelling Catheter Indwelling Catheter Indwelling Catheter - Labs CBC & Chem 7: 01/12/23 08:35 01/12/23 08:35 Labs: Abnormal Lab Results - Last 24 Hours (Table) 01/12/23 01/12/23 Range/Units 08:35 08:35 RBC 2.46 L (4.30-5.90) m/uL Hgb 7.5 L (13.0-17.5) gm/dL Hct 22.9 L (39.0-53.0) % RDW 15.7 H (11.5-15.5) % Chloride 112 H (98-107) mmol/L Creatinine 0.38 L (0.66-1.25) mg/dL Glucose 111 H (74-99) mg/dL Calcium 7.1 L (8.4-10.2) mg/dL Magnesium 1.4 L (1.6-2.3) mg/dL Microbiology - Last 24 Hours (Table) 01/05/23 21:22 Blood Culture - Final Blood
[2023-01-12] MEDS: VERAPAMIL 40 MG TAB PO SCH ×2 (14:03→20:55)
[2023-01-12] MEDS ORDERED: Potassium Replacement Protocol 1 EACH MISC MISCELLANE PRN (18:04)
[2023-01-12] MEDS: MAGNESIUM OXIDE 400 MG TAB PO SCH ×2 (18:08→20:54)
--- NOTE | 2023-01-12 18:28 | P.DS ---
Providers Date of admission: 01/03/23 00:26 Expected date of discharge: 01/12/23 Attending physician: Reol Lopez Consults: 01/03/23 00:26 Consult Physician Routine Consulting Provider: Narinder Frye Consult Reason/Comments: Atrial fibrillation with rapid ventricular rate Do you want consulting provider notified?: Yes Primary care physician: Roel Lopez [facility] Course: Final Diagnoses: Status post mechanical fall and fractured Left hip Acute metabolic encephalopathy, acute delirium, multifactorial, secondary to the above, anesthesia and pain meds, improving Atelectasis Chronic persistent atrial fibrillation w RVR History of CAD History of ischemic cardiomyopathy Seziure Disorder [place], wears hearing aids Hospital course:Status post left intramedullary nail fixation for left intertrochanteric hip fracture, status post fall, currently with acute delirium. Confused, requiring avionics safety inspector. Maintained on Cardizem drip, heart rates better controlled. Echo ordered. Maintaining O2 sats in the 90s on 4 L nasal cannula. 01/06/2023 Answering some simple questions, otherwise delirium persists, wearing mittens. echo reporting EF 40-45%. Continues on Cardizem drip. T-max 100.4, currently afebrile, WBC within normal limits. Blood cultures pending. Maintaining O2 sats in the 90s on room air.Hemoglobin decreased to 7.9, repeat level pending. Tachycardic. Receiving potassium supplements per protocol for potassium 3.3. For potassium of 3.3 renal function stable. 01/07/2023 confusion persists, received Ativan and Dilaudid during the forge heater hours. febrile, T-max 101.1,Ax., Maintaining O2 sats of 99% on 4 L nasal cannula which can be titrated down. Tachycardic, heart rates low 100s to 120s. Systolic blood pressure currently in the 150s. Maintained on Cardizem drip, anticoagulated on Eliquis. Labs pending. 01/08/2023 T-max 101.1, currently 99.2. Normal WBC. Pancultured, urine not yet collected. Chest x-ray reporting cardiomegaly with patchy left basilar atelectasis and/or acute infiltrate. Zyprexa initiated yesterday. Delirium persists. Sitter at bedside. Brain CT reported no acute intracranial hemorrhage or midline shift, moderate diffuse cerebral atrophy and mild chronic small vessel ischemic changes redemonstrated, no significant change from prior CT. Maintaining O2 sats in the high 90s on 1 L nasal cannula. Maintained on Cardizem drip, tachycardia improving -currently low 100s. Hemoglobin increased to 8.2. Magnesium 1.6, supplementation ordered. 01/09/2023 remains off of IV push Dilaudid, IV push Ativan, much more alert this morning, conversing with PCP appropriately. Patient does have a baseline stutter. Hard of hearing, hearing aids at bedside counter-need to be put back in his ears. Telemetry A. fib with RVR, returning on Cardizem drip. Denies chest pain, palpitations or shortness of breath. Minimal diet intake. 01/12/2023 receiving magnesium supplementation for magnesium level I.4. Denies chest pain, palpitations or shortness of breath. Telemetry atrial fibrillation with heart rates in the 120s, blood pressure stable, verapamil added to med regimen as per cardiology. Significant clinical improvement. Patient will be discharged to subacute rehab. pending authorization., In a stable condition with guarded prognosis The impression and plan of care has been dictated as directed. : I performed a history and examination of this patient, discussed the same with the dictator. I agree with the dictator's note ,documented as a scribe. Any additional findings or plans will be noted. Patient Condition at Discharge: Stable Plan - Discharge Summary Discharge Rx Participant: Yes New Discharge Prescriptions: New Amoxic-Pot Clav 875-125Mg [Augmentin 875-125] 1 tab PO Q12HR 5 Days #10 tab Benzocaine/Menthol Lozeng [Cepacol lozenge] 1 each MUCOUS MEM Q4HR PRN lozenge PRN Reason: Sore Throat Atorvastatin [Lipitor] 40 mg PO HS tab Sennosides-Docusate Sodium [Senokot-S] 2 each PO HS tab Sennosides-Docusate Sodium [Senokot-S] 1 each PO DAILY tab Acetaminophen Tab [Tylenol] 650 mg PO Q6HR PRN tab PRN Reason: Mild Pain Or Fever > 100.5 OLANZapine [ZyPREXA] 2.5 mg PO DAILY tab Verapamil [Isoptin] 40 mg PO BID tab Metoprolol Tartrate [Lopressor] 100 mg PO BID tab Magnesium Oxide [Mag-Ox] 400 mg PO TID tab HYDROcodone/APAP 5-325MG [[address] 5-325] 1 each PO Q6HR PRN #12 tab PRN Reason: Pain Famotidine [Pepcid] 20 mg PO BID tab Continue Apixaban [Eliquis] 5 mg PO BID #60 tab Nystatin 100,000 Unit/gm Powd [Mycostatin Powder] 1 applic TOPICAL BID #4 oz Phenytoin Sodium Extended [Dilantin] 300 mg PO TID Discontinued cefUROXime axetiL [Ceftin] 500 mg PO BID 7 Days #14 tab Discharge Medication List Apixaban [Eliquis] 5 mg PO BID #60 tab 09/26/16 [Rx] Nystatin 100,000 Unit/gm Powd [Mycostatin Powder] 1 applic TOPICAL BID #4 oz 01/01/23 [Rx] Phenytoin Sodium Extended [Dilantin] 300 mg PO TID 01/03/23 [History] Acetaminophen Tab [Tylenol] 650 mg PO Q6HR PRN tab 01/12/23 [Rx] Amoxic-Pot Clav 875-125Mg [Augmentin 875-125] 1 tab PO Q12HR 5 Days #10 tab 01/12/23 [Rx] Atorvastatin [Lipitor] 40 mg PO HS tab 01/12/23 [Rx] Benzocaine/Menthol Lozeng [Cepacol lozenge] 1 each MUCOUS MEM Q4HR PRN lozenge 01/12/23 [Rx] Famotidine [Pepcid] 20 mg PO BID tab 01/12/23 [Rx] HYDROcodone/APAP 5-325MG [[address] 5-325] 1 each PO Q6HR PRN #12 tab 01/12/23 [Rx] Magnesium Oxide [Mag-Ox] 400 mg PO TID tab 01/12/23 [Rx] Metoprolol Tartrate [Lopressor] 100 mg PO BID tab 01/12/23 [Rx] OLANZapine [ZyPREXA] 2.5 mg PO DAILY tab 01/12/23 [Rx] Sennosides-Docusate Sodium [Senokot-S] 1 each PO DAILY tab 01/12/23 [Rx] Sennosides-Docusate Sodium [Senokot-S] 2 each PO HS tab 01/12/23 [Rx] Verapamil [Isoptin] 40 mg PO BID tab 01/12/23 [Rx] Follow up Appointment(s)/Referral(s): Kavon Caldera PAC [PHYSICIAN REPRODUCTION TECHNICIAN] - 2 Weeks (Patient may follow-up with Kavon Caldera PA-C or Dr. Percy Pedroza at [facility] in 2-3 weeks following discharge. ) Roel Lopez DO [Primary Care Provider] - 1 Week (After DC from subacute rehab.) Activity/Diet/Wound Care/Special Instructions: 1. Keep Optifoam dressing over the left hip intact over the next 7 days 2. Patient may shower with dressing intact over the surgical site of the left hip 3. Patient may shower without a dressing intact after 7 days his incision site remains clean and dry 4. Toe-touch weightbearing only on the left lower extremity for balance on the left lower extremity 5. Patient may utilize walker to aid in ambulation 6. Take medications as prescribed 7. Any questions or concerns patient may contact [facility] at [phone] CBC, BMP, magnesium in 3 days Continued dysphagiaII diet ( ground) texture, upgraded to thin liquids, straws okay maintain aspiration precautions. Discharge Disposition: TRANSFER TO SNF/ECF
[2023-01-12] MEDS: AMOXIC-POT CLAV 875-125MG 1 EACH TAB PO SCH (20:55)
[2023-01-12] MEDS: ATORVASTATIN 40 MG TAB PO SCH (20:55)
[2023-01-12 23:12] VITALS: RESP 16
[2023-01-13 04:06] VITALS: TEMP 97.7
[2023-01-13 08:02] LABS: Anisocytosis Slight; Basophils % (A) 0 %; Eosinophils # (A) 0.2 k/uL (0-0.7); Eosinophils % (A) 2 %; HCT 23.7 % (39.0-53.0); HGB 7.8 gm/dL (13.0-17.5); Hypochromasia Slight; Lymphocytes # (A) 1.4 k/uL (1.0-4.8); Lymphocytes % (A) 18 %; MCH 30.6 pg (25.0-35.0); MCHC 32.9 g/dL (31.0-37.0); MCV 92.9 fL (80.0-100.0); Mean Platelet Volume 8.5; Monocytes # (A) 0.4 k/uL (0-1.0); Monocytes % (A) 5 %; Neutrophils # (A) 5.7 k/uL (1.3-7.7); Neutrophils % (A) 74 %; Platelet Count 222 k/uL (150-450); Poikilocytosis Slight; RBC 2.55 m/uL (4.30-5.90); WBC 7.6 k/uL (3.8-10.6)
[2023-01-13 08:16] LABS: Magnesium 1.4 mg/dL (1.6-2.3); Potassium 3.4 mmol/L (3.5-5.1)
[2023-01-13] MEDS: metroNIDAZOLE-NS PMX 500 MG in SALINE 1 100ML.BAG IVPB SCH (08:38)
[2023-01-13] MEDS ORDERED: MAGNESIUM OXIDE 400 MG TAB PO STA (08:54)
[2023-01-13] MEDS: METOPROLOL TARTRATE 50 MG TAB PO SCH (09:11)
[2023-01-13] MEDS: APIXABAN 5 MG TAB PO SCH (09:11)
[2023-01-13] MEDS: FAMOTIDINE 20 MG TAB PO SCH (09:11)
[2023-01-13] MEDS: AMOXIC-POT CLAV 875-125MG 1 EACH TAB PO SCH (09:11)
[2023-01-13] MEDS: NYSTATIN 100,000 UNIT/GM POWD 15 GM TOPICAL SCH (09:11)
[2023-01-13] MEDS: POTASSIUM CHLORIDE ER 20 MEQ TAB.ER PO SCH ×2 (09:11→10:06)
[2023-01-13] MEDS: PHENYTOIN SODIUM EXTENDED 100 MG CAP PO SCH (09:11)
[2023-01-13] MEDS: VERAPAMIL 40 MG TAB PO SCH (09:12)
[2023-01-13] MEDS: SENNOSIDES-DOCUSATE SODIUM 1 EACH TAB PO SCH (09:12)
[2023-01-13] MEDS: OLANZapine 2.5 MG TAB PO SCH (09:12)
[2023-01-13] MEDS: MAGNESIUM OXIDE 400 MG TAB PO SCH (10:06)
[2023-01-13 10:43] VITALS: BP 118/82; PULSE 105
[2023-01-13] MEDS ORDERED: VERAPAMIL 40 MG TAB PO SCH (16:00)
== END 2023-01-13 11:08 | DRG 480 ==
LOC: EC 21:58 → 3SCARD 01-03 00:26
PROVIDERS: ADMIT Family Medicine; ATTEND Family Medicine
PROC: 0QS736Z Reposition Left Upper Femur with Intramedullary Internal Fixation Device, Percutaneous Approach (ICD-10-PCS; principal; 2023-01-04 08:00)
DX: S72.142A Displaced intertrochanteric fracture of left femur, initial encounter for closed fracture (principal); G93.41 Metabolic encephalopathy; F05 Delirium due to known physiological condition; I48.19 Other persistent atrial fibrillation; I48.92 Unspecified atrial flutter; J98.11 Atelectasis; Z91.81 History of falling; E78.5 Hyperlipidemia, unspecified; F03.90 Unspecified dementia, unspecified severity, without behavioral disturbance, psychotic disturbance, mood disturbance, and anxiety; G40.909 Epilepsy, unspecified, not intractable, without status epilepticus; I11.0 Hypertensive heart disease with heart failure; I50.9 Heart failure, unspecified; T41.205A Adverse effect of unspecified general anesthetics, initial encounter; E83.42 Hypomagnesemia; H91.93 Unspecified hearing loss, bilateral; T40.605A Adverse effect of unspecified narcotics, initial encounter; I25.5 Ischemic cardiomyopathy; I25.2 Old myocardial infarction; W18.30XA Fall on same level, unspecified, initial encounter; Z78.1 Physical restraint status; Z79.01 Long term (current) use of anticoagulants; Z79.899 Other long term (current) drug therapy; Z87.442 Personal history of urinary calculi; Z95.5 Presence of coronary angioplasty implant and graft; Z97.4 Presence of external hearing-aid; Z87.01 Personal history of pneumonia (recurrent); Z88.0 Allergy status to penicillin; Z86.011 Personal history of benign neoplasm of the brain
CPT/HCPCS: 36415; 70450; 71045; 73501; 73502; 80048; 80053; 81001; 83605; 83735; 84132; 84484; 85025; 85027; 85610; 85730; 87040; 87086; 88304; 88311; 93005; 93306; 94760; 96374; 96375; 96376; 99285